=== PATIENT | male | born 1945 | race Caucasian/White ===

== ENCOUNTER 2023-05-26 08:57 | Emergency (ER) | payer OTHER, SELFPAY ==
--- NOTE | ~2023-05-26 | US_ITS ---
EXAMINATION: US SCROTUM CLINICAL INFORMATION: Testicular pain. COMPARISON: None available. TECHNIQUE: A sonogram of the scrotum was performed assessing manning-scale appearance and color Doppler flow. Spectral Doppler analysis of the arterial and venous flow were performed in the testes bilaterally. FINDINGS: RIGHT: Right testicle measures 4.6 x 1.4 x 3.1 cm, volume 10.4 mL. No focal testicular parenchymal lesions are visualized. Spectral Doppler analysis of the arterial and venous flow is normal in the right testis. Right epididymal head is normal in size. No significant right hydrocele or varicocele is seen. Right epididymal Doppler flow is normal. LEFT: Left testicle measures 4.0 x 2.4 x 2.6 cm, volume 12.7 mL. No focal testicular parenchymal lesions are visualized. Spectral Doppler analysis of the arterial and venous flow is normal in the left testis. Left epididymal head is unremarkable other than what appears to be a left epididymal head cyst at 4 mm. No significant left hydrocele or varicocele is seen. Left epididymal Doppler flow is normal. Bilateral inguinal nodes incidentally observed right greater than left, the largest right node at 41 x 11 x 33 mm. US/US scrotum IMPRESSION: Small left epididymal head cyst. Testes intrinsically normal. Bilateral inguinal nodes present.
--- NOTE | ~2023-05-26 | US_ITS ---
EXAMINATION: US SCROTUM CLINICAL INFORMATION: Testicular pain. COMPARISON: None available. TECHNIQUE: A sonogram of the scrotum was performed assessing manning-scale appearance and color Doppler flow. Spectral Doppler analysis of the arterial and venous flow were performed in the testes bilaterally. FINDINGS: RIGHT: Right testicle measures 4.6 x 1.4 x 3.1 cm, volume 10.4 mL. No focal testicular parenchymal lesions are visualized. Spectral Doppler analysis of the arterial and venous flow is normal in the right testis. Right epididymal head is normal in size. No significant right hydrocele or varicocele is seen. Right epididymal Doppler flow is normal. LEFT: Left testicle measures 4.0 x 2.4 x 2.6 cm, volume 12.7 mL. No focal testicular parenchymal lesions are visualized. Spectral Doppler analysis of the arterial and venous flow is normal in the left testis. Left epididymal head is unremarkable other than what appears to be a left epididymal head cyst at 4 mm. No significant left hydrocele or varicocele is seen. Left epididymal Doppler flow is normal. Bilateral inguinal nodes incidentally observed right greater than left, the largest right node at 41 x 11 x 33 mm. US/US scrotum doppler IMPRESSION: Small left epididymal head cyst. Testes intrinsically normal. Bilateral inguinal nodes present.
--- NOTE | ~2023-05-26 | XR_ITS ---
EXAMINATION: XR HIP, RIGHT CLINICAL INFORMATION: Right groin pain. COMPARISON: None available. TECHNIQUE: Two views of the right hip. FINDINGS: There is generalized osteopenia. Mild lateral hip degenerative joint changes are seen, right greater than left. Right cam femoral acetabular impingement. There is no acute fracture or dislocation. Moderate to severe atherosclerosis. XR/XR hip RT w PEL1V IMPRESSION: 1. Generalized osteopenia and mild bilateral hip osteoarthritis, right greater than left. Right cam femoral acetabular impingement. No acute fracture. 2. Moderate to severe atherosclerosis.
[2023-05-26 09:17] VITALS: BP 118/48; BP 132/47; PULSE 85; PULSE 95; RESP 16; TEMP 36.9; O2SAT 95; BMI 25.6
--- NOTE | 2023-05-26 09:30 | ED.GENADULT ---
HPI - General Adult General Chief complaint: Weakness Stated complaint: FAMILY STS WEAKER/?HERNIA PER EMS Time Seen by Provider: 05/26/23 09:29 Source: patient, EMS, RN notes reviewed and old records reviewed Mode of arrival: ambulatory History of Present Illness HPI narrative: 77-year-old male with past medical history of HTN, diabetes, COPD, PAD, memory issues, presenting to the ED via EMS with right hip/ groin pain x 2 days with inability to ambulate & generalized weakness per . denies recent injury/ fall, ambulates intermittently with cane. States patient was unable to get out of bed yesterday/ this morning due to pain. Denies fever/chills, nausea/ vomiting, scrotal/ penile pain, dysuria / hematuria. Onset (ago): day(s) Related Data Home Medications Medication Instructions Recorded Confirmed albuterol sulfate 90 mcg/actuation 2 puff inhalation Q4-6H PRN 05/26/23 05/26/23 aerosol inhaler Shortness Of Breath ammonium lactate 12 % topical cream 1 appl topical BID PRN Dry Skin 05/26/23 05/26/23 amoxicillin 500 mg-potassium 1 tab PO BID 05/26/23 05/26/23 clavulanate 125 mg tablet aspirin 81 mg tablet,delayed 81 mg PO DAILY 05/26/23 05/26/23 release atorvastatin 80 mg tablet 80 mg PO BEDTIME 05/26/23 05/26/23 cetirizine 10 mg tablet (Zyrtec) 10 mg PO DAILY 05/26/23 05/26/23 ferrous sulfate 325 mg (65 mg 325 mg PO DAILY 05/26/23 05/26/23 iron) tablet fluticasone fur. 100 mcg-umeclid 1 ea inhalation DAILY 05/26/23 05/26/23 62.5 mcg-vilant 25 mcg inhalat.powder (Trelegy Ellipta) metformin 500 mg tablet 500 mg PO BID 05/26/23 05/26/23 metoprolol succinate 50 mg 50 mg PO DAILY 05/26/23 05/26/23 tablet,extended release 24 hr minocycline 100 mg capsule 100 mg PO BID 05/26/23 05/26/23 Allergies Allergy/AdvReac Type Severity Reaction Status Date / Time egg Allergy Unknown Verified 05/26/23 11:00 Sulfa (Sulfonamide Allergy Unknown Verified 05/26/23 11:00 Antibiotics) Review of Systems Review of Systems: Constitutional: No Fever, No Chills, No Fatigue, No Malaise ENT/Mouth: No Ear Pain, No Nasal Congestion, No sore throat, No Rhinorrhea, No Swallowing Difficulty Eyes: No Eye Pain, No Swelling, No Redness, No Vision Changes Cardiovascular: No Chest Pain, No SOB, No Palpitations Respiratory: No Cough, No Sputum, No Dyspnea Gastrointestinal: No Nausea, No Vomiting, No Diarrhea, No Constipation, No Abdominal pain Genitourinary: No Dysuria, No Urinary Frequency, No Hematuria, No Flank Pain, No Urinary Flow Changes, No Hesitancy Musculoskeletal: + joint pain, No Myalgias, No Joint Swelling Skin: No Skin Lesions, No rash Neuro: + Weakness, No Numbness, No Paresthesias, No Headache Yes all other systems are reviewed and are negative Constitutional: Constitutional: Reports as per [facility] Past Medical History Attestation statement: The following information was validated with the patient. Source: old records reviewed Social History Social History (System 05/26/23 @ 11:00 by Denise Amador) Alcohol intake: never Smoked in Last 30 Days: No Use of substances other than those prescribed or required for medical reasons: No Advance Directives: No Physical Exam ED Vital Signs: Vital Signs - 24 hr 05/26/23 09:17 05/26/23 12:54 05/26/23 15:33 Temperature 98.4 F Pulse Rate 85 85 74 Respiratory Rate 16 19 Blood Pressure 132/47 L 132/47 L 126/55 L Pulse Oximetry 95 95 91 L Oxygen Delivery Method Room Air Room Air BMI result Body Mass Index 25.6 Const General: cooperative, healthy appearing and no acute distress Limitations: no limitations [facility] Head: Yes normal to inspection and Yes atraumatic Ears: hearing grossly normal bilaterally General nose exam: Normal external nose present Face and sinus: Yes normal facial exam Eyes General: appearance normal, both eyes and all related structures EOM: EOMs intact bilaterally Neck Neck: Yes normal visual inspection and Yes no meningeal signs Resp Effort & Inspection: normal respiratory effort and no respiratory distress Auscultation: clear to auscultation bilaterally Cardio Rate: regular rate Heart sounds: S1 normal heart sound present and S2 normal heart sound present GI Inspection: Yes normal to inspection Palpation (GI): Soft to palpation, nontender, no guarding and not rigid Other: No appreciable hernia General: Yes no CVA tenderness Male General Exam: Yes normal external exam Penis: normal penis Scrotum: scrotum normal, not edematous, not erythematous and no scrotal swelling Testes: Testes normal, no epidiymal tenderness and no testicular swelling Back/Spine/Pelvis Back: no CVA tenderness Skin Rashes: no rashes Wounds: no wounds Neuro General: tone normal, moves all extremities and no meningeal signs Extrem Other: Right hip without noted deformity. + Tenderness to palpation to groin, small superficial open wound noted without surrounding erythema or drainage. No warmth. Pain elicited with ROM of right hip, ROM limited secondary to pain. Neurovascular intact distally. General: Yes normal to inspection Course Course Course Narrative: - labs noted for mild hyperkalemia to 5.3 > 5g Lokelma given. BUN 22, no available priors to compare. Labs otherwise reassuring - UA with glucose, not infected US scrotum doppler IMPRESSION: Small left epididymal head cyst. Testes intrinsically normal. Bilateral inguinal nodes present. XR hip RT w PEL1V IMPRESSION: 1.? Generalized osteopenia and mild bilateral hip osteoarthritis, right greater than left. Right cam femoral acetabular impingement. No acute fracture. 2.? Moderate to severe atherosclerosis. > results discussed with patient and . Will obtain to PT/CM eval. Physician observation initiated at 11:51AM - physical therapy evaluated patient and recommended STR -1630-- ED care transferred to [facility] pending CM placement Medications Administered Discontinued Medications Generic Name Dose Route Start Last Admin Trade Name Freq PRN Reason Stop Dose Admin Morphine Sulfate 15 mg 05/26/23 09:38 05/26/23 10:51 Morphine Sulfate Immed Release 15 Mg Tablet PO 05/26/23 09:39 15 mg ONCE ONE Administration Sodium Zirconium Cyclosilicate 5 gm 05/26/23 11:31 05/26/23 12:04 Sodium Zirconium Cyclosilicate 5 Gm Powd.Pack PO 05/26/23 11:32 5 gm ONCE ONE Administration Medical Decision Making Medical Decision Making MDM Narrative: 77-year-old male with past medical history of HTN, diabetes, COPD, PAD, memory issues, presenting to the ED via EMS with right hip/ groin pain x 2 days with inability to ambulate & generalized weakness per . on exam vital stable, NAD, nontoxic appearing, abdomen soft/ nontender, exam WNL without scrotal/testicular tenderness swelling or lesions. No appreciable hernia. + Tenderness to right groin without noted deformity. Pain elicited with hip ROM. Neurovascularly intact distally without edema. Concern for occult fracture vs arthritic flare vs hernia vs epididymitis/orchitis vs ?torsion. Lower suspicion for appendicitis/diverticulitis/ colitis or ischemic bowelwithout abdominal tenderness Plan: labs, UA, x-ray, ultrasound, pain management, re-evaluate Please refer to course for remaining clinical decision making, interpretation of labs/imaging results, and discussions with consultants and/or family members. Differential Diagnosis Differential Diagnoses: The differential diagnosis associated with the presentation includes As above Admission/Observation Consideration of admission/observation: Escalation of care including admission/observation considered Lab Data MDM Lab Attestation statement: I reviewed the patient's lab results. 05/26/23 10:46 05/26/23 10:46 Labs: Lab Results 05/26/23 05/26/23 05/26/23 Range/Units 10:46 10:46 10:46 WBC 5.9 (4.8-10.8) X10*3/uL RBC 3.91 L (4.60-5.80) X10*6/uL Hgb 12.1 L (14.0-18.0) g/dl Hct 36.5 L (42.0-52.0) % MCV 93.4 (80.0-98.0) fL MCH 30.9 (27.0-33.0) pg MCHC 33.2 (31.0-36.0) g/dl RDW 13.5 (11.0-16.0) % Plt Count 93 L (160-400) X10*3/uL MPV 10.1 (9.4-12.4) fL Immature Gran % (Auto) 0.5 H (0.0-0.4) % Neut % (Auto) 80.4 H (45-73) % Lymph % (Auto) 8.6 L (20-40) % Corson % (Auto) 9.5 (2-11) % Eos % (Auto) 0.5 (0-4) % Baso % (Auto) 0.5 (0-2) % Lymph # (Auto) 0.5 L (1.2-4.9) X10*3/uL Corson # (Auto) 0.6 (0.1-1.2) X10*3/uL Eos # (Auto) 0.0 (0.0-0.4) X10*3/uL Baso # (Auto) 0.0 (0.0-0.2) X10*3/uL Abs Immat Gran (auto) 0.03 (0.00-0.03) X10*3/uL Absolute Neuts (auto) 4.8 (2.0-8.3) x10*3/uL Absolute Nucleated RBC 0.000 (0.0-0.012) X10*3/uL Nucleated RBC % (auto) 0.0 (0.0-0.2) /100WBC PT 14.3 H (11.1-13.3) SEC INR 1.2 H (0.9-1.1) Sodium 136 (135-145) mmol/L Potassium 5.3 H (3.3-5.1) mmol/L Chloride 108 (96-108) mmol/L Carbon Dioxide 19 L (22-29) mmol/L Anion Gap 14 (12-20) BUN 22 H (9-16) mg/dL Creatinine 1.14 (0.5-1.4) mg/dL Estim Creat Clear Calc 50.7 Estimated GFR > 60 POC Glucose (60-115) mg/dL Random Glucose 123 H (60-115) mg/dL Calcium 8.7 (8.4-10.2) mg/dL Magnesium (1.6-2.6) mg/dL Total Bilirubin 0.9 (0.0-1.0) mg/dL Direct Bilirubin 0.4 (0.0-0.5) mg/dL AST 15 (5-37) U/L ALT 17 (0-40) U/L Alkaline Phosphatase 128 H (39-117) U/L Total Protein 7.5 (6.5-8.0) g/dL Albumin 3.1 L (3.5-5.0) g/dL Lipase 26 (8-78) U/L Urine Color Urine Appearance Urine pH (5.0-9.0) Ur Specific Chunky (1.005-1.025) Urine Protein (Neg-Trace) mg/dL Urine Glucose (UA) (Negative) mg/dL Urine Ketones (Negative) mg/dL Urine Blood (Negative) Urine Nitrite (Negative) Ur Leukocyte Esterase (Negative) Urine RBC (0-2) /HPF Urine WBC (0-5) /HPF Ur Squamous Epith Cells (0-2) /HPF Urine Bacteria (None Seen) Hyaline Casts (0-2) /LPF COVID-19 (ABIGAIL) (Negative) COVID-19 Clin Com 05/26/23 05/26/23 05/26/23 Range/Units 10:46 10:46 12:32 WBC (4.8-10.8) X10*3/uL RBC (4.60-5.80) X10*6/uL Hgb (14.0-18.0) g/dl Hct (42.0-52.0) % MCV (80.0-98.0) fL MCH (27.0-33.0) pg MCHC (31.0-36.0) g/dl RDW (11.0-16.0) % Plt Count (160-400) X10*3/uL MPV (9.4-12.4) fL Immature Gran % (Auto) (0.0-0.4) % Neut % (Auto) (45-73) % Lymph % (Auto) (20-40) % Corson % (Auto) (2-11) % Eos % (Auto) (0-4) % Baso % (Auto) (0-2) % Lymph # (Auto) (1.2-4.9) X10*3/uL Corson # (Auto) (0.1-1.2) X10*3/uL Eos # (Auto) (0.0-0.4) X10*3/uL Baso # (Auto) (0.0-0.2) X10*3/uL Abs Immat Gran (auto) (0.00-0.03) X10*3/uL Absolute Neuts (auto) (2.0-8.3) x10*3/uL Absolute Nucleated RBC (0.0-0.012) X10*3/uL Nucleated RBC % (auto) (0.0-0.2) /100WBC PT (11.1-13.3) SEC INR (0.9-1.1) Sodium (135-145) mmol/L Potassium (3.3-5.1) mmol/L Chloride (96-108) mmol/L Carbon Dioxide (22-29) mmol/L Anion Gap (12-20) BUN (9-16) mg/dL Creatinine (0.5-1.4) mg/dL Estim Creat Clear Calc Estimated GFR POC Glucose (60-115) mg/dL Random Glucose (60-115) mg/dL Calcium (8.4-10.2) mg/dL Magnesium 1.8 (1.6-2.6) mg/dL Total Bilirubin (0.0-1.0) mg/dL Direct Bilirubin (0.0-0.5) mg/dL AST (5-37) U/L ALT (0-40) U/L Alkaline Phosphatase (39-117) U/L Total Protein (6.5-8.0) g/dL Albumin (3.5-5.0) g/dL Lipase (8-78) U/L Urine Color Yellow Urine Appearance Clear Urine pH 6.0 (5.0-9.0) Ur Specific Chunky 1.020 (1.005-1.025) Urine Protein 30 (1+) H (Neg-Trace) mg/dL Urine Glucose (UA) 250 H (Negative) mg/dL Urine Ketones Negative (Negative) mg/dL Urine Blood Negative (Negative) Urine Nitrite Negative (Negative) Ur Leukocyte Esterase Negative (Negative) Urine RBC 0-2 (0-2) /HPF Urine WBC 0-5 (0-5) /HPF Ur Squamous Epith Cells 0-2 (0-2) /HPF Urine Bacteria None Seen (None Seen) Hyaline Casts 0-2 (0-2) /LPF COVID-19 (ABIGAIL) Negative (Negative) COVID-19 Clin Com See Note 05/26/23 Range/Units 13:12 WBC (4.8-10.8) X10*3/uL RBC (4.60-5.80) X10*6/uL Hgb (14.0-18.0) g/dl Hct (42.0-52.0) % MCV (80.0-98.0) fL MCH (27.0-33.0) pg MCHC (31.0-36.0) g/dl RDW (11.0-16.0) % Plt Count (160-400) X10*3/uL MPV (9.4-12.4) fL Immature Gran % (Auto) (0.0-0.4) % Neut % (Auto) (45-73) % Lymph % (Auto) (20-40) % Corson % (Auto) (2-11) % Eos % (Auto) (0-4) % Baso % (Auto) (0-2) % Lymph # (Auto) (1.2-4.9) X10*3/uL Corson # (Auto) (0.1-1.2) X10*3/uL Eos # (Auto) (0.0-0.4) X10*3/uL Baso # (Auto) (0.0-0.2) X10*3/uL Abs Immat Gran (auto) (0.00-0.03) X10*3/uL Absolute Neuts (auto) (2.0-8.3) x10*3/uL Absolute Nucleated RBC (0.0-0.012) X10*3/uL Nucleated RBC % (auto) (0.0-0.2) /100WBC PT (11.1-13.3) SEC INR (0.9-1.1) Sodium (135-145) mmol/L Potassium (3.3-5.1) mmol/L Chloride (96-108) mmol/L Carbon Dioxide (22-29) mmol/L Anion Gap (12-20) BUN (9-16) mg/dL Creatinine (0.5-1.4) mg/dL Estim Creat Clear Calc Estimated GFR POC Glucose 117 H (60-115) mg/dL Random Glucose (60-115) mg/dL Calcium (8.4-10.2) mg/dL Magnesium (1.6-2.6) mg/dL Total Bilirubin (0.0-1.0) mg/dL Direct Bilirubin (0.0-0.5) mg/dL AST (5-37) U/L ALT (0-40) U/L Alkaline Phosphatase (39-117) U/L Total Protein (6.5-8.0) g/dL Albumin (3.5-5.0) g/dL Lipase (8-78) U/L Urine Color Urine Appearance Urine pH (5.0-9.0) Ur Specific Chunky (1.005-1.025) Urine Protein (Neg-Trace) mg/dL Urine Glucose (UA) (Negative) mg/dL Urine Ketones (Negative) mg/dL Urine Blood (Negative) Urine Nitrite (Negative) Ur Leukocyte Esterase (Negative) Urine RBC (0-2) /HPF Urine WBC (0-5) /HPF Ur Squamous Epith Cells (0-2) /HPF Urine Bacteria (None Seen) Hyaline Casts (0-2) /LPF COVID-19 (ABIGAIL) (Negative) COVID-19 Clin Com Radiology Impression Discussion of test interpretation with radiology: I have reviewed the radiologist's reading. Independent Historian Clinical information obtained from an independent historian. History obtained from or confirmed by: Spouse External Record Review External record reviewed: Inpatient record, Office record, Outpatient record, Prior outpatient labs, Prior outpatient radiology, Primary care record and Outside ED record Tests considered The following testing was considered but not selected: As above Prescription Management I considered prescription management with: Pain Medication Chronic Conditions Patient?s care impacted by: Diabetes, Hypertension and Other (COPD) Discharge Plan Discharge Clinical Impression: Femoral acetabular impingement Patient Disposition: Still a Patient Prescriptions: No Action metformin 500 mg tablet 500 mg PO BID atorvastatin 80 mg tablet 80 mg PO BEDTIME metoprolol succinate 50 mg tablet extended release 24 hr 50 mg PO DAILY ammonium lactate 12 % cream 1 appl topical BID PRN (Reason: Dry Skin) albuterol sulfate 90 mcg/actuation HFA aerosol inhaler 2 puff INHALATION Q4-6H PRN (Reason: Shortness Of Breath) amoxicillin-pot clavulanate 500-125 mg tablet 1 tab PO BID Trelegy Ellipta 100-62.5-25 mcg blister with device 1 ea inhalation DAILY cetirizine [Zyrtec] 10 mg Tablet 10 mg PO DAILY minocycline 100 mg capsule 100 mg PO BID aspirin 81 mg Tablet,Delayed Release (Dr/Ec) 81 mg PO DAILY ferrous sulfate 325 mg (65 mg iron) Tablet 325 mg PO DAILY
--- NOTE | 2023-05-26 09:39 | ECG_ITS ---
Test Reason : WEAKNESS Blood Pressure : / mmHG Vent. Rate : 083 BPM Atrial Rate : 083 BPM P-R Int : 164 ms QRS Dur : 082 ms QT Int : 354 ms P-R-T Axes : 117 021 066 degrees QTc Int : 415 ms Sinus rhythm with Premature atrial complexes Otherwise normal ECG No previous ECGs available Referred By: Susana Brown Electronically Signed By:SARAH ROSA
[2023-05-26 10:50] LABS: MANUAL DIFF FLAG NO
[2023-05-26] MEDS: Morphine Sulfate Immed Release 15 MG TABLET PO (10:51)
[2023-05-26 10:52] LABS: Appearance Urine Clear; Color Urine Yellow; Glucose Urine UA 250 mg/dL (Negative); Leukocyte Esterase Urine Negative (Negative); Nitrite Urine Negative (Negative); UMIC TRIGGER UACC YES; Urine Blood Negative (Negative); Urine Ketones Negative (Negative); Urine Protein 30 (1+) mg/dL (Neg-Trace)
[2023-05-26 10:54] LABS: Bacteria Urine None Seen (None Seen); Hyaline Casts Urine 0-2 /LPF (0-2); RBC Urine 0-2 /HPF (0-2); Squamous Epithelial Cell Urine 0-2 /HPF (0-2); WBC Urine 0-5 /HPF (0-5)
[2023-05-26 10:57] LABS: Basophils Percent Auto 0.5 % (0-2); Eosinophils Percent Auto 0.5 % (0-4); Hematocrit 36.5 % (42.0-52.0); Hemoglobin 12.1 g/dl (14.0-18.0); INTERNATIONAL NORM RATIO 1.2 (0.9-1.1); Imm Gran Abs Auto 0.03 X10*3/uL (0.00-0.03); Imm Gran Pct Auto 0.5 % (0.0-0.4); Lymphocytes Absolute Auto 0.5 X10*3/uL (1.2-4.9); Lymphocytes Percent Auto 8.6 % (20-40); Mean Corpuscular HGB Conc 33.2 g/dl (31.0-36.0); Mean Corpuscular Hemoglobin 30.9 pg (27.0-33.0); Mean Corpuscular Volume 93.4 fL (80.0-98.0); Monocytes Absolute Auto 0.6 X10*3/uL (0.1-1.2); Monocytes Percent Auto 9.5 % (2-11); Neutrophils Absolute Auto 4.8 x10*3/uL (2.0-8.3); Neutrophils Percent Auto 80.4 % (45-73); Prothrombin Time 14.3 SEC (11.1-13.3); Red Blood Count 3.91 X10*6/uL (4.60-5.80); Red Cell Distribution Width 13.5 % (11.0-16.0); White Blood Count 5.9 X10*3/uL (4.8-10.8)
[2023-05-26 11:09] LABS: Magnesium 1.8 mg/dL (1.6-2.6)
[2023-05-26 11:10] LABS: Alanine Aminotransferase 17 U/L (0-40); Albumin Level 3.1 g/dL (3.5-5.0); Alkaline Phosphatase 128 U/L (39-117); Anion Gap 14 (12-20); Aspartate Amino Transferase 15 U/L (5-37); Bilirubin Direct 0.4 mg/dL (0.0-0.5); Bilirubin Total 0.9 mg/dL (0.0-1.0); Blood Urea Nitrogen 22 mg/dL (9-16); Calcium 8.7 mg/dL (8.4-10.2); Carbon Dioxide 19 mmol/L (22-29); Chloride 108 mmol/L (96-108); Creatinine Clr Calc Pharmacy 50.7; Estimated Glomerular Filt Rate > 60; Glucose Random 123 mg/dL (60-115); Lipase 26 U/L (8-78); Potassium 5.3 mmol/L (3.3-5.1); Sodium 136 mmol/L (135-145); Total Protein 7.5 g/dL (6.5-8.0)
[2023-05-26 11:16] LABS: Mean Platelet Volume 10.1 fL (9.4-12.4); Platelet Count 93 X10*3/uL (160-400)
[2023-05-26] MEDS: Sodium Zirconium Cyclosilicate 5 GM POWD.PACK PO (12:04)
[2023-05-26 12:54] VITALS: BP 132/47; PULSE 85; O2SAT 95
[2023-05-26 13:00] LABS: COVID-19 Test Negative (Negative); IDNOW Serial# BCCEAD1C
[2023-05-26 13:16] LABS: Glucose, Whole Blood 117 mg/dL (60-115)
--- NOTE | 2023-05-26 13:43 | PHA.MEDREC ---
Pharmacy Consult ? Medication Reconciliation Pharmacy has completed the medication reconciliation. spoke with patients to confirm medications.
[2023-05-26 15:33] VITALS: BP 126/55; PULSE 74; RESP 19; O2SAT 91
--- NOTE | 2023-05-26 16:16 | MHC.CM.ED ---
Received case management consult from Susana TATE. Patient came to the ER due to weakness. Work up essentially negative. Physical therapy eval completed. Short term rehab is being recommended. Patient has [employer] Preferred. Referral broadcatsed to all facilities contracted with patient's insurance within [address]. [facility] and [facility] are only facilities able to offer a bed. Attempted to meet with patient in regards to discharge planning. Patient is currently sleeping. Spoke with patient's , Maria C, via telephone at [phone]. Patient lives with Maria C, typically ambulates with a cane/walker and had no services prior to coming to the ER. Maria C has a copy of patient's HCP at home and will bring in a copy. Facility choices discussed. [facility] is Maria C's first choice. [facility] has been asked to go for insurance auth. Anticipate patient will remain in ER overnight until insurance auth can be obtained. Continue to monitor for d/c needs.
--- NOTE | 2023-05-26 18:24 | MHC.EDTECH ---
Pt ate 50% of dinner. Cleaned up and repositioned. Family member at bedside, call lopez within reach
--- NOTE | 2023-05-26 18:52 | HE.PHANOTE ---
Pharmacy has received patient own medication Minocyclne capsules. Pharmacy will hold on to medication and will send twice daily to ER. RN to contact pharmacy if patient get discharged to receive the medication. Justine Sr, TomD
--- NOTE | 2023-05-26 20:51 | MHC.CM.ED ---
HCP obtained from . Uploaded into [facility]. HCP/ Maria C Dominguez ([phone]).
[2023-05-26 21:02] VITALS: BP 144/58; PULSE 93; RESP 17; TEMP 37.2; O2SAT 95
[2023-05-26] MEDS: Atorvastatin Calcium 80 MG TABLET PO (22:04)
[2023-05-26] MEDS: Amoxicillin/Potassium Clav 500 MG TABLET PO (22:04)
[2023-05-26] MEDS: metFORMIN HCl 500 MG TABLET PO (22:04)
[2023-05-27 02:03] VITALS: BP 106/37; PULSE 83; RESP 17; TEMP 36.8; O2SAT 94
--- NOTE | 2023-05-27 02:09 | PC.NURSE ---
PT BP soft 90/49. made aware, No new orders at this time. PT placed in trendelenburg and bp cycled to u80sizz instead q3mins to allow for perfusion. PT bp increased to 114/51.
[2023-05-27 05:00] VITALS: BP 110/57; PULSE 81; RESP 17; TEMP 36.9; O2SAT 93
--- NOTE | 2023-05-27 06:31 | PC.NURSE ---
Primary contact- , Maria C. [phone]
[2023-05-27 07:40] VITALS: BP 121/54; PULSE 83; RESP 25; O2SAT 95
[2023-05-27] MEDS: Metoprolol Succinate ER 50 MG TAB.ER.24H PO (08:47)
[2023-05-27] MEDS: Aspirin Enteric Coated 81 MG TABLET.DR PO (08:47)
[2023-05-27] MEDS: metFORMIN HCl 500 MG TABLET PO (08:48)
[2023-05-27] MEDS: Amoxicillin/Potassium Clav 500 MG TABLET PO (08:48)
[2023-05-27] MEDS: Loratadine 10 MG TABLET PO (08:48)
[2023-05-27] MEDS: Ferrous Sulfate 324 MG TABLET.DR PO (08:48)
[2023-05-27 08:51] VITALS: BP 103/41; PULSE 85; RESP 23
[2023-05-27] MEDS: Fluticasone/Umeclidinium/Vilanterol 100/62.5/25 BLST.W.DEV 1 PUFF INHALE (09:25)
--- NOTE | 2023-05-27 11:05 | MHC.CM.ED ---
Patient remains in ER overflow. Insurance auth obtained by [facility]. Brenda PHAM booked for 12pm. Med [facility] with chart. Patient, Carola Lombardi RN and Chantelle TATE aware. Continue to monitor for d/c needs.
== END 2023-05-27 13:00 | disposition skilled nursing facility (03) ==
PROVIDERS: Physician Assistant; Emergency Provider Emergency Medicine; PCP Internal Medicine
DX: M25.851 Other specified joint disorders, right hip (principal); R10.31 Right lower quadrant pain; M25.551 Pain in right hip; R10.2 Pelvic and perineal pain; N50.811 Right testicular pain; R26.2 Difficulty in walking, not elsewhere classified; R53.1 Weakness; Z79.899 Other long term (current) drug therapy
CPT/HCPCS: 36415; 73502; 76870; 80048; 80076; 81001; 82947; 83690; 83735; 85025; 85610; 87635; 93005; 93975; 97162; 99285

== ENCOUNTER → 2023-05-26 09:39 | Outpatient (BNV) | payer MEDICARE, SELFPAY | PROVIDERS: Emergency Provider Emergency Medicine; PCP Internal Medicine; Visit Provider Internal Medicine | DX: I49.1 Atrial premature depolarization (principal) | CPT/HCPCS: 93010 ==

== ENCOUNTER 2024-07-27 11:23 | Emergency (ER) | payer OTHER, SELFPAY ==
--- NOTE | ~2024-07-27 | XR_ITS ---
EXAMINATION: XR CHEST CLINICAL INFORMATION: Hypoxia. COMPARISON: None available. TECHNIQUE: 2 views of the chest were obtained. FINDINGS: The heart is normal in size. There is calcific atherosclerotic disease of the aorta. The right lung is clear. There is a dense left lower lobe consolidation. No pleural effusion. No pneumothorax. No acute osseous abnormality. XR/XR chest 2V IMPRESSION: Left lower lobe consolidation. Electronically signed by: Saúl Heller DO 07/27/2024 07:22 PM EDT
[2024-07-27 11:31] VITALS: BP 119/57; BP 131/58; PULSE 85; PULSE 86; RESP 20; TEMP 37; O2SAT 93; O2SAT 94; BMI 27.4
[2024-07-27 11:37] VITALS: BP 119/57; PULSE 77; RESP 20; TEMP 37; O2SAT 92
--- NOTE | 2024-07-27 12:08 | ED.MALEGU ---
HPI - Male Genitourinary General Chief complaint: Urogenital-Male Stated complaint: ?'S UTI,WEAK,BLOOD/FREQ URINE,101.5 PER EMS Time Seen by Provider: 07/27/24 12:00 Source: patient and family () Mode of arrival: EMS Limitations: no limitations History of Present Illness ED Provider: Faizan HPI Narrative: Patient is a 78-year-old male with history of HTN, DM, COPD, PID, memory issues presenting via ambulance for urinary frequency, hematuria, weakness since this morning. reports that patient got up to go to the bathroom multiple times throughout the night, only urinated small amounts. This morning around 5:00 a.m. she assisted him to the bathroom and noticed hematuria. She also noted him to have a fever of 101.7. She rechecked prior to EMS transport and temp was 101.5?. She did give him Tylenol prior to arrival. Patient denies any back or flank pain. Denies any abdominal pain, nausea, vomiting, diarrhea. states that patient was too weak to ambulate on his own so she called 911. Complaint: other Onset (ago): hour(s) Associated symptoms: Reports blood in urine and fever Related Data Home Medications ?Medication ?Instructions ?Recorded ?Confirmed albuterol sulfate 90 mcg/actuation 2 puff inhalation Q4-6H PRN 05/26/23 05/26/23 aerosol inhaler Shortness Of Breath ammonium lactate 12 % topical cream 1 appl topical BID PRN Dry Skin 05/26/23 05/26/23 amoxicillin 500 mg-potassium 1 tab PO BID 05/26/23 05/26/23 clavulanate 125 mg tablet aspirin 81 mg tablet,delayed 81 mg PO DAILY 05/26/23 05/26/23 release atorvastatin 80 mg tablet 80 mg PO BEDTIME 05/26/23 05/26/23 cetirizine 10 mg tablet (Zyrtec) 10 mg PO DAILY 05/26/23 05/26/23 ferrous sulfate 325 mg (65 mg 325 mg PO DAILY 05/26/23 05/26/23 iron) tablet fluticasone fur. 100 mcg-umeclid 1 ea inhalation DAILY 05/26/23 05/26/23 62.5 mcg-vilant 25 mcg inhalat.powder (Trelegy Ellipta) metformin 500 mg tablet 500 mg PO BID 05/26/23 05/26/23 metoprolol succinate 50 mg 50 mg PO DAILY 05/26/23 05/26/23 tablet,extended release 24 hr minocycline 100 mg capsule 100 mg PO BID 05/26/23 05/26/23 Previous Rx's ?Medication ?Instructions ?Recorded cefuroxime axetil 250 mg tablet 250 mg PO BID #14 tabs 07/27/24 Allergies Allergy/AdvReac Type Severity Reaction Status Date / Time egg Allergy Unknown Verified 07/27/24 11:33 Sulfa (Sulfonamide Allergy Unknown Verified 07/27/24 11:33 Antibiotics) Review of Systems Review of Systems: As per HPI Yes all other systems are reviewed and are negative Constitutional: Constitutional: Reports as per HPI [facility] Social History Social History (System 05/26/23 @ 11:00 by Denise Amador) Alcohol intake: never Smoked in Last 30 Days: No Use of substances other than those prescribed or required for medical reasons: No Advance Directives: No Advance Directives Information Provided: No Do you have a plan to hurt others: No Plan Physical Exam Vital Signs: Vital Signs: Last Vital Signs Temp 98.9 F 07/27/24 19:32 Pulse 97 07/27/24 19:32 Resp 18 07/27/24 19:32 BP 140/63 H 07/27/24 19:32 Pulse Ox 93 07/27/24 19:32 O2 Del Method Nasal Cannula 07/27/24 19:32 O2 Flow Rate 2 07/27/24 19:32 Oxygen Flow Rate 2 07/27/24 11:31 BMI result Body Mass Index 27.4 Vital signs have been reviewed and appear to be correct. Blood pressure normal. Heart rate normal. Respiratory rate normal. Temperature normal. Oxygen saturation normal on baseline O2. Const: General: cooperative, healthy appearing and no acute distress Orientation/consciousness: oriented to person, oriented to place, oriented to time and patient oriented x3 Limitations: no limitations HEENT: Head: Yes normocephalic and Yes atraumatic Ears: external ears normal General nose exam: Normal external nose present Face and sinus: Yes face symmetric Mouth: oropharynx normal and moist mucous membranes Throat: Yes uvula midline Eyes: Pupils: Equal, round and reactive pupils present Neck: Neck: Yes normal visual inspection and Yes supple Resp: Effort & Inspection: normal respiratory effort and able to speak in complete sentences Auscultation: clear to auscultation bilaterally Cardio: Rate: regular rate Rhythm: regular rhythm Heart sounds: S1 normal heart sound present and S2 normal heart sound present GI: Palpation (GI): Soft to palpation and nontender Auscultation: normoactive bowel sounds : General: Yes no CVA tenderness Back/Spine/Pelvis: Back: no CVA tenderness Skin: General skin exam: elasticity normal and turgor normal Neuro: General: oriented to person, oriented to place, oriented to time, patient oriented x3, moves all extremities, no focal motor deficits and CN's II-XI intact bilaterally Cranial nerves: Yes Equal, round and reactive pupils present Cognition (Neuro): normal cognition Extrem: General: Yes full ROM, Yes no pedal edema and Yes no calf tenderness Psych: Mental Status: mental status grossly normal Affect: normal affect Thought process: Normal thought process present Course Reevaluation(s) Reevaluation #1: , who is also HCP, initially stated she felt comfortable bringing patient home, stating she has assistance from children, can transfer patient in and out of wheelchair, has oxygen at home, etc. Nursing expressed concern with this as patient becoming increasingly confused as the day goes on. reports that the patient frequently but states he is not on any medications for this as he has has not seen a neurologist yet. Discussed with that we can obtain chest x-ray, VBG, and she was initially agreeable, then quickly change her mind stating that she wants patient transported home. Case discussed with Dr. Murillo who feels that if wants patient discharged home, this is ok, but he should be transported home by ambulance to ensure he is receiving adequate oxygenation. This plan discussed with who was agreeable. Ambulance booked for transport. Time: 17:25 Reevaluation #2: ADDENDUM 07/28/24: Pt blood cultures showing concerns for g positive cocci in pairs and short chains as well as Enterococcus noted in urinalysis. I spoke with patient's , Maria C, who reports that patient has been urinating without issue and is afebrile. She reports patient is still weak ?but better than yesterday? and remains on oxygen at home. She reports that if patient develops fever or if she has any other concerns that she will call the ambulance to return patient to the hospital. Time: 15:38 (07/28/2024) Medications Administered Discontinued Medications Generic Name Dose Route Start Last Admin Trade Name Yariel PRN Reason Stop Dose Admin Ceftriaxone Sodium 1 gm/ 50 mls @ 100 mls/hr 07/27/24 13:54 07/27/24 15:10 Sodium Chloride IV 07/27/24 14:23 Infused ONCE ONE Infusion Medical Decision Making Medical Decision Making [facility] Narrative: Patient is a 78-year-old male with history of HTN, DM, COPD, PID, memory issues presenting via ambulance for urinary frequency, hematuria, weakness since this morning. On exam patient is awake, A+Ox3, VS WNL, afebrile, normal neurological exam without focal deficits, physical exam findings as above. Given reported symptoms and physical exam findings, initial differential includes UTI, pyelonephritis, PILY, sepsis. Labs notable for left shift without leukocytosis, no evidence of PILY, normal lactic. No longer suspicious for sepsis. Viral serology negative. Urinalysis notable for 2+ leukocytes, 3+ blood, >50WBCs, 1+ bacteria, ceftriaxone ordered for UTI. Results discussed with patient and all questions answered. Patient's states that she is comfortable bringing him home for treatment with oral antibiotics, have to wheelchairs at home to use as he does have weakness at times. Strict return precautions discussed at bedside. Follow-up with PCP. Patient and verbalized understanding of and agreement with plan. Differential Diagnosis Differential Diagnoses: The differential diagnosis associated with the presentation includes As per [facility] Admission/Observation Consideration of admission/observation: Escalation of care including admission/observation considered Patient would have been admitted to the hospital had their work up had any findings where hospital admission was appropriate and their clinical presentation warranted hospital admission. Lab Data [facility] Lab Attestation statement: I reviewed the patient's lab results. As per [facility] 07/27/24 12:23 07/27/24 12:23 Labs: Lab Results 07/27/24 07/27/24 07/27/24 Range/Units 12:23 12:24 13:07 WBC 7.4 (4.8-10.8) X10*3/uL RBC 3.59 L (4.60-5.80) X10*6/uL Hgb 11.8 L (14.0-18.0) g/dl Hct 34.3 L (42.0-52.0) % MCV 95.5 (80.0-98.0) fL MCH 32.9 (27.0-33.0) pg MCHC 34.4 (31.0-36.0) g/dl RDW 12.5 (11.0-16.0) % Plt Count 99 L (160-400) X10*3/uL MPV 9.9 (9.4-12.4) fL Immature Gran % (Auto) 0.4 (0.0-0.4) % Neut % (Auto) 80.6 H (45-73) % Lymph % (Auto) 8.5 L (20-40) % [place] % (Auto) 9.5 (2-11) % Eos % (Auto) 0.5 (0-4) % Baso % (Auto) 0.5 (0-2) % Lymph # (Auto) 0.6 L (1.2-4.9) X10*3/uL [place] # (Auto) 0.7 (0.1-1.2) X10*3/uL Eos # (Auto) 0.0 (0.0-0.4) X10*3/uL Baso # (Auto) 0.0 (0.0-0.2) X10*3/uL Abs Immat Gran (auto) 0.03 (0.00-0.03) X10*3/uL Absolute Neuts (auto) 6.0 (2.0-8.3) x10*3/uL Absolute Nucleated RBC 0.000 (0.0-0.012) X10*3/uL Nucleated RBC % (auto) 0.0 (0.0-0.2) /100WBC Sodium 135 (135-145) mmol/L Potassium 4.2 (3.3-5.1) mmol/L Chloride 108 (96-108) mmol/L Carbon Dioxide 18 L (22-29) mmol/L Anion Gap 13 (12-20) BUN 16 (9-16) mg/dL Creatinine 1.28 (0.5-1.4) mg/dL Estim Creat Clear Calc 44.4 Estimated GFR 54 Random Glucose 124 H (60-115) mg/dL Lactic Acid 1.8 (0.5-2.0) mmol/L Calcium 8.1 L D (8.4-10.2) mg/dL Total Bilirubin 1.1 H (0.0-1.0) mg/dL AST 22 (5-37) U/L ALT 25 (0-40) U/L Alkaline Phosphatase 104 (39-117) U/L Total Protein 7.0 (6.5-8.0) g/dL Albumin 3.4 L (3.5-5.0) g/dL Urine Color Yellow Urine Appearance Hazy Urine pH 6.0 (5.0-9.0) Ur Specific [place] 1.010 (1.005-1.025) Urine Protein Negative (Neg-Trace) mg/dL Urine Glucose (UA) Negative (Negative) mg/dL Urine Ketones Negative (Negative) mg/dL Urine Blood Large (3+) H (Negative) Urine Nitrite Negative (Negative) Ur Leukocyte Esterase Moderate (2+) H (Negative) Urine RBC >20 H (0-2) /HPF Urine WBC >50 H (0-5) /HPF Ur Squamous Epith Cells 0-2 (0-2) /HPF Urine Bacteria 1+ (None Seen) Hyaline Casts 0-2 (0-2) /LPF Influenza Type A (PCR) NEGATIVE (Negative) Influenza Type B (PCR) NEGATIVE (Negative) RSV RNA Qual (PCR) NEGATIVE (Negative) SARS-CoV-2 RNA (RT-PCR) NEGATIVE (Negative) Independent Historian Clinical information obtained from an independent historian. History obtained from or confirmed by: Spouse External Record Review External record reviewed: Inpatient record, Office record and Outpatient record Prescription Management I considered prescription management with: Antibiotic Discharge Plan Discharge Clinical Impression: Urinary tract infection Patient Disposition: Home, Self-Care Instructions: Urinary Tract Infection in Men (DC) Additional Instructions: You have been evaluated in the emergency department today for your urinary symptoms. Your evaluation, including urinalysis, suggests that your symptoms are due to urinary tract infection. Please take your prescribed antibiotics for the full course of medication as directed. Please follow-up with your primary care provider within 2 days. Return to the emergency department if you experience fevers 100.4? F or greater, increasing weakness, worsening or uncontrolled pain, vomiting, flank pain, or for any other concerning symptoms. Prescriptions: New cefuroxime axetil 250 mg tablet 250 mg PO BID Qty: 14 0RF No Action metformin 500 mg tablet 500 mg PO BID atorvastatin 80 mg tablet 80 mg PO BEDTIME metoprolol succinate 50 mg tablet extended release 24 hr 50 mg PO DAILY ammonium lactate 12 % cream 1 appl topical BID PRN (Reason: Dry Skin) albuterol sulfate 90 mcg/actuation HFA aerosol inhaler 2 puff INHALATION Q4-6H PRN (Reason: Shortness Of Breath) amoxicillin-pot clavulanate 500-125 mg tablet 1 tab PO BID Trelegy Ellipta 100-62.5-25 mcg blister with device 1 ea inhalation DAILY cetirizine [Zyrtec] 10 mg Tablet 10 mg PO DAILY minocycline 100 mg capsule 100 mg PO BID aspirin 81 mg Tablet,Delayed Release (Dr/Ec) 81 mg PO DAILY ferrous sulfate 325 mg (65 mg iron) Tablet 325 mg PO DAILY Interventions: ED Discharge Assessment Last Done: 07/27/24 19:32 Discharge Date/Time: 07/27/24 19:33 Print Language: Czech
[2024-07-27 12:31] LABS: MANUAL DIFF FLAG NO
[2024-07-27 12:33] LABS: Basophils Percent Auto 0.5 % (0-2); Eosinophils Percent Auto 0.5 % (0-4); Hematocrit 34.3 % (42.0-52.0); Hemoglobin 11.8 g/dl (14.0-18.0); Imm Gran Abs Auto 0.03 X10*3/uL (0.00-0.03); Imm Gran Pct Auto 0.4 % (0.0-0.4); Lymphocytes Absolute Auto 0.6 X10*3/uL (1.2-4.9); Lymphocytes Percent Auto 8.5 % (20-40); Mean Corpuscular HGB Conc 34.4 g/dl (31.0-36.0); Mean Corpuscular Hemoglobin 32.9 pg (27.0-33.0); Mean Corpuscular Volume 95.5 fL (80.0-98.0); Mean Platelet Volume 9.9 fL (9.4-12.4); Monocytes Absolute Auto 0.7 X10*3/uL (0.1-1.2); Monocytes Percent Auto 9.5 % (2-11); Neutrophils Percent Auto 80.6 % (45-73); Red Blood Count 3.59 X10*6/uL (4.60-5.80); Red Cell Distribution Width 12.5 % (11.0-16.0); White Blood Count 7.4 X10*3/uL (4.8-10.8)
[2024-07-27 12:34] LABS: Platelet Count 99 X10*3/uL (160-400)
[2024-07-27 12:36] LABS: Appearance Urine Hazy; Color Urine Yellow; Glucose Urine UA Negative (Negative); Leukocyte Esterase Urine Moderate (2+) (Negative); Nitrite Urine Negative (Negative); UMIC TRIGGER UACC YES; Urine Blood Large (3+) (Negative); Urine Ketones Negative (Negative); Urine Protein Negative (Neg-Trace)
[2024-07-27 12:46] LABS: Bacteria Urine 1+ (None Seen); Hyaline Casts Urine 0-2 /LPF (0-2); RBC Urine >20 /HPF (0-2); Squamous Epithelial Cell Urine 0-2 /HPF (0-2); UACC Culture Trigger YES; WBC Urine >50 /HPF (0-5)
[2024-07-27 12:53] LABS: Alanine Aminotransferase 25 U/L (0-40); Albumin Level 3.4 g/dL (3.5-5.0); Alkaline Phosphatase 104 U/L (39-117); Anion Gap 13 (12-20); Aspartate Amino Transferase 22 U/L (5-37); Bilirubin Total 1.1 mg/dL (0.0-1.0); Blood Urea Nitrogen 16 mg/dL (9-16); Calcium 8.1 mg/dL (8.4-10.2); Carbon Dioxide 18 mmol/L (22-29); Chloride 108 mmol/L (96-108); Creatinine Clr Calc Pharmacy 44.4; Estimated Glomerular Filt Rate 54; Glucose Random 124 mg/dL (60-115); Potassium 4.2 mmol/L (3.3-5.1); Sodium 135 mmol/L (135-145)
[2024-07-27 13:14] LABS: Influenza A PCR NEGATIVE (Negative); Influenza B PCR NEGATIVE (Negative); Resp Syncy Virus RNA Qual PCR NEGATIVE (Negative); SARS COV2 PCR INHOUSE NEGATIVE (Negative)
[2024-07-27 13:19] VITALS: BP 116/61; PULSE 76; RESP 18; TEMP 36.6; O2SAT 94
[2024-07-27 13:29] LABS: Lactic Acid 1.8 mmol/L (0.5-2.0)
[2024-07-27] MEDS: cefTRIAXone sodium 1 GM in 0.9 % Sodium Chloride 50 ML IV (14:37)
[2024-07-27 16:21] VITALS: BP 134/61; PULSE 102; RESP 22; TEMP 36.7; O2SAT 92
--- NOTE | 2024-07-27 16:38 | PC.NURSE ---
Attempt to d/c pt. Very unstable on feet, increased WOB and SOB, cyanotic nail beds, increased confusion. Maria Luz Gloria NP notified.
--- NOTE | 2024-07-27 16:52 | PC.NURSE ---
SENIOR IT SPECIALIST ok with d/c. SENIOR IT SPECIALIST spoke with pt.'s who says that this is pt.'s baseline and she is comfortable taking him back.
--- NOTE | 2024-07-27 17:50 | PC.NURSE ---
Maria C, spouse, wants to leave additional contact number in pt.'s chart - [phone]
--- NOTE | 2024-07-27 18:49 | PC.NURSE ---
Bed change and incontinence care provided.
--- NOTE | 2024-07-27 19:10 | PC.NURSE ---
Report given to Cristine Hinkle RN
[2024-07-27 19:31] VITALS: BP 140/63; PULSE 97; RESP 18; TEMP 37.2; O2SAT 93
[2024-07-27 19:32] VITALS: BP 140/63; PULSE 97; RESP 18; TEMP 37.2; O2SAT 93
== END 2024-07-27 19:33 | disposition home or self-care (01) ==
PROVIDERS: Registered Nurse Emergency; Emergency Provider Student in an Organized Health Care Education/Training Program; PCP Internal Medicine
DX: N39.0 Urinary tract infection, site not specified (principal); R09.02 Hypoxemia; Z03.818 Encounter for observation for suspected exposure to other biological agents ruled out; Z79.899 Other long term (current) drug therapy
CPT/HCPCS: 0241U; 36415; 71046; 80053; 81001; 83605; 85025; 87040; 87077; 87086; 87088; 87186; 87205; 96365; 99284; J0696

== ENCOUNTER 2024-07-28 17:10 | Inpatient (IN) | payer OTHER, MEDICARE, SELFPAY ==
--- NOTE | ~2024-07-28 | CT_ITS ---
EXAMINATION: CT ABDOMEN AND PELVIS WITHOUT CONTRAST CLINICAL INFORMATION: UTI and bacteremia. COMPARISON: None available. TECHNIQUE: Multidetector volumetric imaging was performed from the superior aspect of the liver through the pubic symphysis. Sagittal and coronal reformatted images were obtained on the technologist's workstation. This CT examination was performed using dose optimization techniques as appropriate, variously including the following: *Automated exposure control *Adjustment of mA and/or kV according to patient size (this includes techniques or standardized protocols for targeted exams where dose is matched to indication/reason for exam; i.e. extremities or head) *Use of iterative reconstruction technique DLP: 501 mGy-cm FINDINGS: LUNG BASES: Moderate paraseptal emphysema. Lower lobe bronchiectasis. LIVER, GALLBLADDER, AND BILIARY TREE: The liver is normal in size, shape, and attenuation. No focal hepatic lesion or biliary ductal dilatation is present. The gallbladder is unremarkable with no evidence of radiopaque gallstones, gallbladder wall thickening, or obvious pericholecystic inflammatory changes. PANCREAS: Unremarkable. SPLEEN: Unremarkable. ADRENAL GLANDS: Unremarkable. KIDNEYS AND URETERS: The kidneys are normal in size, shape, and attenuation. No hydronephrosis, hydroureter, or calculi seen. No perinephric stranding. BLADDER: Unremarkable. GASTROINTESTINAL TRACT: The large and small bowel are normal in caliber. Mild colonic diverticulosis. No evidence of diverticulitis. Stool ball noted in the rectum. ABDOMINAL WALL: No significant hernia is appreciated. LYMPH NODES: Normal. VASCULAR: Extensive atherosclerosis. PELVIC VISCERA: Unremarkable. OSSEOUS STRUCTURES: Unremarkable. CT/CT abdomen pelvis wo IV con IMPRESSION: 1. No acute findings in the abdomen or pelvis. 2. Moderate paraseptal emphysema and lower lobe bronchiectasis. Fleischner guidelines were followed. Electronically signed by: Sebastien Kyle MD 07/29/2024 04:33 PM EDT
[2024-07-28 17:18] VITALS: BP 74/39; PULSE 78; RESP 18; TEMP 36.6; O2SAT 94
--- NOTE | 2024-07-28 17:25 | ECG_ITS ---
Test Reason : SEPSIS Blood Pressure : / mmHG Vent. Rate : 070 BPM Atrial Rate : 070 BPM P-R Int : 166 ms QRS Dur : 084 ms QT Int : 402 ms P-R-T Axes : 046 003 074 degrees QTc Int : 434 ms Normal sinus rhythm Low voltage QRS Nonspecific ST abnormality Abnormal ECG When compared with ECG of 26-MAY-2023 09:53, Premature atrial complexes are no longer Present Nonspecific ST abnormality is now Present Referred By: Chantelel Singh Electronically Signed By:AMANDA SALINAS
--- NOTE | 2024-07-28 17:25 | ED_ITS ---
HPI - General Adult General Chief complaint: Recheck/Abnormal Lab/Rx Stated complaint: FEVER Time Seen by Provider: 07/28/24 17:25 Source: patient, family (patient's ) and EMS Mode of arrival: EMS Limitations: no limitations History of Present Illness ED Provider: Chantelle Singh PA-C HPI narrative: Patient is a 78 year old assigned male at with a history of HTN, DM, COPD, DM, PAD, memory deficit, and recent UTI (diagnosed 07/27/2024) presenting to the emergency department today with a cough and fever. Patient's states that the patient was seen here yesterday and diagnosed with a UTI. Patient's states that she wanted to take him home last night so she refused medical admission. Patient's states that the patient has continued to cough at home and has uncontrolled fevers. Patient's states that they received a call today stating that the patient's blood culture was positive and they should return to the ER. EMS states that the patient was at 89% on RA when they arrived on scene so they placed him 2 liters of oxygen via nasal canula. Patient denies any dizziness, lightheadedness, abdominal pain, nausea, vomiting, chills, blurry vision, double vision, loss of vision, chest pain, difficulty breathing, shortness of breath, back pain, night sweats, syncope or a near syncopal episode, recent trauma or falls, bowel incontinence, bladder incontinence, or any other complaints at this time. Relieving factors: none Exacerbating factors: none Associated symptoms: cough and fever/chills Related Data Home Medications ?Medication ?Instructions ?Recorded ?Confirmed albuterol sulfate 90 mcg/actuation 2 puff inhalation Q4-6H PRN 05/26/23 05/26/23 aerosol inhaler Shortness Of Breath ammonium lactate 12 % topical cream 1 appl topical BID PRN Dry Skin 05/26/23 05/26/23 amoxicillin 500 mg-potassium 1 tab PO BID 05/26/23 05/26/23 clavulanate 125 mg tablet aspirin 81 mg tablet,delayed 81 mg PO DAILY 05/26/23 05/26/23 release atorvastatin 80 mg tablet 80 mg PO BEDTIME 05/26/23 05/26/23 cetirizine 10 mg tablet (Zyrtec) 10 mg PO DAILY 05/26/23 05/26/23 ferrous sulfate 325 mg (65 mg 325 mg PO DAILY 05/26/23 05/26/23 iron) tablet fluticasone fur. 100 mcg-umeclid 1 ea inhalation DAILY 05/26/23 05/26/23 62.5 mcg-vilant 25 mcg inhalat.powder (Trelegy Ellipta) metformin 500 mg tablet 500 mg PO BID 05/26/23 05/26/23 metoprolol succinate 50 mg 50 mg PO DAILY 05/26/23 05/26/23 tablet,extended release 24 hr minocycline 100 mg capsule 100 mg PO BID 05/26/23 05/26/23 Previous Rx's ?Medication ?Instructions ?Recorded cefuroxime axetil 250 mg tablet 250 mg PO BID #14 tabs 07/27/24 Allergies Allergy/AdvReac Type Severity Reaction Status Date / Time egg Allergy Unknown Verified 07/28/24 17:35 Sulfa (Sulfonamide Allergy Unknown Verified 07/28/24 17:35 Antibiotics) Review of Systems 2 Constitutional: Constitutional: Reports no additional constitutional complaints, Denies chills, Reports fever(s), Reports malaise and Denies night sweats Eyes: Eyes: Reports no additional eye complaints, Denies blurry vision, Denies change in vision, Denies diplopia, Denies eye discharge, Denies loss of vision and Denies eye pain ENT: Denies dizziness Cardiovascular: Cardiovascular: Reports no additional cardiovascular complaints, Denies chest pain, Denies lightheadedness, Denies Loss of Consciousness, Denies dyspnea and Denies dyspnea on exertion Respiratory: Respiratory: Denies chest congestion, Reports cough, Denies hemoptysis, Denies dyspnea and Denies dyspnea on exertion Gastrointestinal: Gastrointestinal: Reports no additional gastrointestinal complaints, Denies abdominal pain, Denies melena, Denies hematochezia, Denies change in bowel habits and Denies change in stool character Genitourinary: Genitourinary: Reports no additional male genitourinary complaints Musculoskeletal: Musculoskeletal: Reports no additional musculoskeletal complaints, Denies numbness and Denies tingling Neurologic: Denies dizziness, Denies loss of vision, Denies numbness and Denies tingling Psychiatric: Psychiatric: Reports no additional psychiatric complaints Endocrine: Endocrine: Reports no additional endocrine complaints Hematologic/Lymphatic: Hematologic/Lymphatic: Reports no additional hematologic/lymphatic complaints Allergic/Immunologic: Allergic/Immunologic: Reports no additional allergic/immunologic complaints PMFSH Past Medical History Attestation statement: The following information was validated with the patient. (all information validated with the patient's ) Source: old records reviewed, obtained from family (patient's provided additional history and confirmed the history provided by the patient.) and nursing notes reviewed Social History Social History Alcohol intake: never Smoked in Last 30 Days: No Use of substances other than those prescribed or required for medical reasons: No Advance Directives: Yes Advance Directives on File: Yes Advance Directives Date on File: 05/26/23 Do you have a plan to hurt others: No Plan Physical Exam ED Vital Signs: Vital Signs - 24 hr 07/28/24 17:18 07/28/24 17:32 07/28/24 19:07 Temperature 97.8 F Pulse Rate 78 74 63 Respiratory Rate 18 24 H 25 H Blood Pressure 74/39 L 81/42 L 87/48 L Pulse Oximetry 94 94 93 Oxygen Delivery Method Nasal Cannula Nasal Cannula Nasal Cannula Oxygen Flow Rate 2 2 07/28/24 19:59 07/28/24 20:46 Temperature 98.0 F Pulse Rate 63 64 Respiratory Rate 17 18 Blood Pressure 105/52 L Pulse Oximetry 94 Oxygen Delivery Method Nasal Cannula Oxygen Flow Rate 2 BMI result Body Mass Index 26.6 Const General: cooperative, no acute distress, alert and awake Nutritional Appearance: well nourished Orientation/consciousness: patient oriented x3 Limitations: no limitations HENMT Head: Yes normal to inspection and Yes atraumatic Ears: hearing grossly normal bilaterally and external ears normal General nose exam: Normal external nose present, no nasal discharge noted and no epistaxis Face and sinus: Yes normal facial exam, No abrasion and No laceration Mouth: Normal oral and palatal mucosa present, no drooling and no muffled voice Eyes General: appearance normal, both eyes and all related structures Periorbital: periorbital findings normal Eyelids: Yes eyelids normal Conjunctivae: conjunctivae normal Pupils: Equal, round and reactive pupils present EOM: EOMs intact bilaterally Neck Neck: Yes normal visual inspection, Yes full ROM and Yes no lymphadenopathy Chest Chest palpation & inspection: normal inspection of the chest Resp Effort & Inspection: able to speak in complete sentences and Actively coughing Quality: productive Auscultation: wheezes scattered wheezes Cardio Jugular venous distension: no JVD Rate: regular rate Rhythm: regular rhythm Heart sounds: S1 normal heart sound present and S2 normal heart sound present GI Inspection: Yes normal to inspection Palpation (GI): Soft to palpation, nontender, no guarding and not rigid Neuro General: patient oriented x3 and moves all extremities Cranial nerves: Yes Equal, round and reactive pupils present Cognition (Neuro): normal cognition Extrem General: Yes normal to inspection, Yes full ROM and Yes capillary refill normal Psych Appearance: grossly normal Mental Status: mental status grossly normal Affect: normal affect Attitude: cooperative Thought process: Normal thought process present Thought content: Normal thought content present Insight: Good insight present (Psych) Medications Administered Generic Name Dose Route Start Last Admin Trade Name Freq PRN Reason Stop Dose Admin Azithromycin 500 mg/ Sodium 250 mls @ 125 mls/hr 07/28/24 20:36 07/28/24 20:49 Chloride IV 07/28/24 22:35 125 mls/hr ONCE ONE Administration Discontinued Medications Generic Name Dose Route Start Last Admin Trade Name Freq PRN Reason Stop Dose Admin Albuterol Sulfate 2.5 mg/ 0 mg 07/28/24 20:41 07/28/24 20:46 Albuterol/Ipratropium 3 ml INHALE 07/28/24 20:42 1 dose ONCE ONE Administration Ceftriaxone Sodium 1 gm/ 50 mls @ 100 mls/hr 07/28/24 17:25 07/28/24 19:20 Sodium Chloride IV 07/28/24 17:54 Infused ONCE ONE Infusion Lactated Ringer's 2,382 mls @ 2,382 mls/hr 07/28/24 17:44 07/28/24 18:32 Lr 30 ml/kg infuse over 1 hr (2382 ml) 07/28/24 18:43 2,382 mls/hr IV Administration .Q1H ONE Magnesium Sulfate 2 gm in 50 mls @ 25 mls/hr 07/28/24 18:47 07/28/24 19:05 Magnesium Sulfate/H2o IV 07/28/24 20:46 25 mls/hr ONCE ONE Administration Methylprednisolone Sodium Succinate 60 mg 07/28/24 20:36 07/28/24 20:48 Methylprednisolone Sod Succ 125 Mg/2 Ml Vial IVPUSH 07/28/24 20:37 60 mg ONCE ONE Administration Medical Decision Making Medical Decision Making MDM Narrative: Patient is a 78 year old assigned male at with a history of HTN, DM, COPD, DM, PAD, memory deficit, and recent UTI (diagnosed 07/27/2024) presenting to the emergency department today with a cough and fever. Patient's physical exam was as noted in the physical exam portion of this note. Patient's blood work showed a sodium of 129, BUN 27, CR 1.82, lactic acid of 2.1, and magnesium of 1.3. Patient's blood culture from 07/27/2024 showed gram-positive cocci in pairs and short chains however, this was only one of two bottles. Patient's urine from 07/27/2024 showed an acute UTI. Patient's chest x-ray from 07/27/2024 showed a left lower lobe consolidation. Patient's EKG was unremarkable. Patient was placed on 2 liters of oxygen by EMS because he was hypoxic on scene at 89%. Patient was given IV magnesium, solu-medrol, 30mg/kg of LR, Azithromycin, and Ceftriaxone. I considered the patient to be possibly septic at 1725. I spoke with the hospitalist team who agreed to admission. I explained my physical exam findings as well as all test results to the patient and the patient's . I answered all questions asked by the patient and the patient's . Patient and the patient's verbalized agreement and understanding with this treatment plan and admission. Differential Diagnosis Differential Diagnoses: The differential diagnosis associated with the presentation includes Pneumonia UTI Sepsis Hypoxia Hypomagnesemia PILY Admission/Observation Consideration of admission/observation: Escalation of care including admission/observation considered Patient admitted as noted in the MDM Rationale portion of this note. Consult Healthcare Provider Management of the patient was discussed with: Hospitalist (agreed to admission as noted in the MDM Rationale portion of this note.) Lab Data [facility] Lab Attestation statement: I reviewed the patient's lab results. My interpretation of these results are in the MDM Rationale portion of this note. 07/28/24 17:56 07/28/24 17:56 Labs: Lab Results 07/28/24 Range/Units 17:56 WBC 7.2 (4.8-10.8) X10*3/uL RBC 3.61 L (4.60-5.80) X10*6/uL Hgb 11.8 L (14.0-18.0) g/dl Hct 34.2 L (42.0-52.0) % MCV 94.7 (80.0-98.0) fL MCH 32.7 (27.0-33.0) pg MCHC 34.5 (31.0-36.0) g/dl RDW 12.9 (11.0-16.0) % Plt Count 105 L (160-400) X10*3/uL MPV 9.8 (9.4-12.4) fL Immature Gran % (Auto) 0.4 (0.0-0.4) % Neut % (Auto) 77.9 H (45-73) % Lymph % (Auto) 10.0 L (20-40) % [place] % (Auto) 9.2 (2-11) % Eos % (Auto) 1.9 (0-4) % Baso % (Auto) 0.6 (0-2) % Lymph # (Auto) 0.7 L (1.2-4.9) X10*3/uL [place] # (Auto) 0.7 (0.1-1.2) X10*3/uL Eos # (Auto) 0.1 (0.0-0.4) X10*3/uL Baso # (Auto) 0.0 (0.0-0.2) X10*3/uL Abs Immat Gran (auto) 0.03 (0.00-0.03) X10*3/uL Absolute Neuts (auto) 5.6 (2.0-8.3) x10*3/uL Absolute Nucleated RBC 0.000 (0.0-0.012) X10*3/uL Nucleated RBC % (auto) 0.0 (0.0-0.2) /100WBC PT 14.1 H (10.9-12.4) SEC INR 1.2 H (0.9-1.1) APTT 28.4 (26.0-36.8) SEC Sodium 129 L (135-145) mmol/L Potassium 4.0 (3.3-5.1) mmol/L Chloride 102 (96-108) mmol/L Carbon Dioxide 17 L (22-29) mmol/L Anion Gap 14 (12-20) BUN 27 H (9-16) mg/dL Creatinine 1.82 H (0.5-1.4) mg/dL Estim Creat Clear Calc 32.3 Estimated GFR 36 Random Glucose 129 H (60-115) mg/dL Lactic Acid 2.1 H* (0.5-2.0) mmol/L Calcium 7.8 L (8.4-10.2) mg/dL Magnesium 1.3 L* (1.6-2.6) mg/dL Total Bilirubin 1.3 H (0.0-1.0) mg/dL AST 23 (5-37) U/L ALT 22 (0-40) U/L Alkaline Phosphatase 98 (39-117) U/L Troponin I High Sens 17.5 (<3.5-35.0) ng/L Total Protein 7.3 (6.5-8.0) g/dL Albumin 3.4 L (3.5-5.0) g/dL Influenza Type A (PCR) NEGATIVE (Negative) Influenza Type B (PCR) NEGATIVE (Negative) RSV RNA Qual (PCR) NEGATIVE (Negative) SARS-CoV-2 RNA (RT-PCR) NEGATIVE (Negative) Independent Interpretation I performed an independent interpretation of an: EKG and Plain X-Ray Interpretation: My interpretation is in agreement with the radiologist's impression of this imaging study. L EXAMINATION: XR CHEST CLINICAL INFORMATION: Hypoxia. COMPARISON: None available. TECHNIQUE: 2 views of the chest were obtained. FINDINGS: The heart is normal in size. There is calcific atherosclerotic disease of the aorta. The right lung is clear. There is a dense left lower lobe consolidation. No pleural effusion. No pneumothorax. No acute osseous abnormality. XR/XR chest 2V IMPRESSION: Left lower lobe consolidation. Electronically signed by: Saúl Heller DO 07/27/2024 07:22 PM EDT RP Dictated By: Saúl Heller Jr, DO Signed By: Electronically signed by Saúl Heller Jr, DO 07/27/241921 Vent. Rate: 070 BPM Atrial Rate: 070 BPM P-R Int: 166 ms QRS Dur: 084 ms QT Int: 402 ms P-R-T Axes: 046 003 074 degrees QTc Int: 434 ms Normal sinus rhythm Low voltage QRS Borderline ECG When compared with ECG of 26-MAY-2023 09:53, Premature atrial complexes are no longer Present DD/ [id number] Radiology Impression Discussion of test interpretation with radiology: I have reviewed the radiologist's reading. Independent Historian Clinical information obtained from an independent historian. History obtained from or confirmed by: Spouse (patient's provided additional history and confirmed the history provided by the patient.) and EMS (EMS provided additional history and confirmed the history provided by the patient.) Critical Care Time Critical Care Time Critical Care Time: Yes Total Critical Care Time: 58 Attestation: I spent 58 minutes of Critical Care Time with this patient. This does not include time spent on separately reported billable procedures. Discharge Plan Discharge Clinical Impression: Pneumonia, Acute UTI, Cough, COPD exacerbation, Hypoxia, Hypomagnesemia Patient Disposition: Admitted As Inpatient Print Language: Citizen Of [place]
[2024-07-28 17:28] VITALS: BMI 26.4
[2024-07-28 17:32] VITALS: BP 81/42; BP 90/60; PULSE 74; PULSE 77; RESP 24; O2SAT 93; O2SAT 94; BMI 26.6
[2024-07-28 18:03] LABS: MANUAL DIFF FLAG NO
[2024-07-28 18:10] LABS: INTERNATIONAL NORM RATIO 1.2 (0.9-1.1); Prothrombin Time 14.1 SEC (10.9-12.4)
[2024-07-28 18:12] LABS: Partial Thromboplastin Time 28.4 SEC (26.0-36.8)
[2024-07-28 18:28] LABS: Lactic Acid 2.1 mmol/L (0.5-2.0)
[2024-07-28] MEDS: cefTRIAXone sodium 1 GM in 0.9 % Sodium Chloride 50 ML IV (18:29)
[2024-07-28] MEDS: LACTATED RINGERS 2382 ML IV (18:32)
[2024-07-28 18:46] LABS: Influenza A PCR NEGATIVE (Negative); Influenza B PCR NEGATIVE (Negative); Resp Syncy Virus RNA Qual PCR NEGATIVE (Negative); SARS COV2 PCR INHOUSE NEGATIVE (Negative); Troponin-I High Sensitivity 17.5 ng/L (<3.5-35.0)
[2024-07-28 18:48] LABS: Alanine Aminotransferase 22 U/L (0-40); Albumin Level 3.4 g/dL (3.5-5.0); Alkaline Phosphatase 98 U/L (39-117); Anion Gap 14 (12-20); Aspartate Amino Transferase 23 U/L (5-37); Bilirubin Total 1.3 mg/dL (0.0-1.0); Blood Urea Nitrogen 27 mg/dL (9-16); Calcium 7.8 mg/dL (8.4-10.2); Carbon Dioxide 17 mmol/L (22-29); Chloride 102 mmol/L (96-108); Creatinine Clr Calc Pharmacy 32.3; Estimated Glomerular Filt Rate 36; Glucose Random 129 mg/dL (60-115); Sodium 129 mmol/L (135-145); Total Protein 7.3 g/dL (6.5-8.0)
[2024-07-28] MEDS: Magnesium Sulfate/H2O 2 GM/50 ML PIGGYBACK IV (19:05)
[2024-07-28 19:07] VITALS: BP 87/48; PULSE 63; RESP 25; O2SAT 93
[2024-07-28 19:18] LABS: Magnesium 1.3 mg/dL (1.6-2.6)
[2024-07-28 19:33] LABS: Basophils Percent Auto 0.6 % (0-2); Eosinophils Absolute Auto 0.1 X10*3/uL (0.0-0.4); Eosinophils Percent Auto 1.9 % (0-4); Hematocrit 34.2 % (42.0-52.0); Hemoglobin 11.8 g/dl (14.0-18.0); Imm Gran Abs Auto 0.03 X10*3/uL (0.00-0.03); Imm Gran Pct Auto 0.4 % (0.0-0.4); Lymphocytes Absolute Auto 0.7 X10*3/uL (1.2-4.9); Mean Corpuscular HGB Conc 34.5 g/dl (31.0-36.0); Mean Corpuscular Hemoglobin 32.7 pg (27.0-33.0); Mean Corpuscular Volume 94.7 fL (80.0-98.0); Mean Platelet Volume 9.8 fL (9.4-12.4); Monocytes Absolute Auto 0.7 X10*3/uL (0.1-1.2); Monocytes Percent Auto 9.2 % (2-11); Neutrophils Absolute Auto 5.6 x10*3/uL (2.0-8.3); Neutrophils Percent Auto 77.9 % (45-73); Platelet Count 105 X10*3/uL (160-400); Red Blood Count 3.61 X10*6/uL (4.60-5.80); Red Cell Distribution Width 12.9 % (11.0-16.0); White Blood Count 7.2 X10*3/uL (4.8-10.8)
[2024-07-28 19:59] VITALS: BP 105/52; PULSE 63; RESP 17; TEMP 36.7; O2SAT 94
[2024-07-28 20:01] LABS: Reflex Lactate? Lactic Acid Added
[2024-07-28 20:46] VITALS: PULSE 64; RESP 18; O2SAT 91
[2024-07-28] MEDS: Albuterol Sulfate 2.5 MG, Albuterol/Iprat 2.5/0.5MG 3 ML 3 ML INHALE (20:46)
[2024-07-28] MEDS: methylPREDNISolone Sod Succ 125 MG/2 ML VIAL 60 MG IVPUSH (20:48)
[2024-07-28] MEDS: Azithromycin 500 MG in 0.9 % Sodium Chloride 250 ML 125 MG IV (20:49)
[2024-07-28 21:07] LABS: VBG Base Excess -5.4 mmol/L; VBG HCO3 17 mmol/L (22-26); VBG pCO2 28 mmHg; VBG pO2 62 mmHg
[2024-07-28 21:15] LABS: Venous Blood Gas Refer to POC result
[2024-07-28 21:22] LABS: ~Lactic Acid-LAB USE ONLY 1.8 mmol/L (0.5-2.0)
--- NOTE | 2024-07-28 21:26 | PHA.MEDREC ---
Addendum entered by Lobito Peña RPh 07/28/24 21:41: Med rec reviewed Original Note: Pharmacy Consult ? Medication Reconciliation Pharmacy has completed the medication reconciliation. Spoke to patient to confirm med list. states patient no longer takes Trelegy Ellipta because the patient is now on Anoro, Minocycline 100mg. ( patient had an allergic reaction)
--- NOTE | 2024-07-28 22:04 | P.HPHOSP_ITS ---
History of Present Illness Date of Service: 07/28/24 Attending physician on admission: Sheela Flor Chief Complaint: Fever, cough, abnormal labs Pt is a 78-year-old male with a PMH significant for?COPD on prn home O2, snw-[id number]-[id number] type 2 diabetes, HTN, peripheral artery disease, and memory deficit who presents to the ED with?cough and fever measured at home. Patient is alert and oriented x2, but not to time or fully to situation. HPI thus obtained from chart and provider review. Patient was previously at the ED yesterday where he was seen and evaluated and diagnosed with a UTI and pneumonia. ED provider wanted to admit patient to the hospital, however patient has /HCP refused medical admission as she felt she and her family would be able to care for him at home. was also contacted earlier today when 1/2 of patient's blood cultures came back positive for Gram-positive cocci in pairs and short chains. reports patient has been experiencing significant cough and fevers not controlled with Tylenol at home. Patient himself states he feels ?a little tired? but otherwise denies any acute medical complaints. In the ED pt was afebrile, but tachypneic up to 25, hypotensive as low as 74/39, and noted to be desatting into the 80s on RA during interview and exam. Labs were significant for hyponatremia 129, BUN 27, creatinine 1.82 (elevated from 1.28 yesterday), lactic acid 2.1 with repeat 1.8, magnesium 1.3, and bilirubin 1.3. No leukocytosis. Stable normocytic anemia 11.8/34.2. Troponin WNL at 17.5. Tested negative for flu, RSV, COVID. CXR yesterday showed left lower lobe consolidation. 1/2 blood culture positive for Gram-positive cocci in pairs and short chains. UA still preliminary showing Enterococcus/Streptococcus 50- 100,000. EKG demonstrated normal sinus rhythm with T-wave inversion in septal leads but no evidence of ST elevations or depressions. Pt was treated with IVF, Mag sulfate, DuoNebs, Solu-Medrol, azithromycin, and ceftriaxone. Pt will be admitted to the hospital for treatment and further evaluation of PILY and acute hypoxic respiratory failure in the setting COPD exacerbation with underlying pneumonia. Review of Systems 2 Review of Systems: Unable to obtain due to patient's mentation [facility] Social History Alcohol intake: never Smoked in Last 30 Days: No Use of substances other than those prescribed or required for medical reasons: No Advance Directives: Yes Advance Directives on File: Yes Advance Directives Date on File: 05/26/23 Do you have a plan to hurt others: No Plan Meds Allergies Allergy/AdvReac Type Severity Reaction Status Date / Time egg Allergy Unknown Verified 07/28/24 17:35 minocycline Allergy Unknown Verified 07/28/24 21:26 Sulfa (Sulfonamide Allergy Unknown Verified 07/28/24 17:35 Antibiotics) Active Medications: Current Medications Azithromycin 500 mg/ Sodium (Chloride) 250 mls @ 125 mls/hr IV ONCE ONE Stop: 07/28/24 22:35 Last Admin: 07/28/24 20:49 Dose: 125 mls/hr Home Medications ?Medication ?Instructions ?Recorded ?Confirmed ?Last Taken ?Type albuterol sulfate 90 mcg/actuation 2 puff inhalation Q4-6H PRN 05/26/23 07/28/24 07/28/24 History aerosol inhaler Shortness Of Breath ammonium lactate 12 % topical cream 1 appl topical BID PRN Dry Skin 05/26/23 07/28/24 07/28/24 History aspirin 81 mg tablet,delayed 81 mg PO DAILY 05/26/23 07/28/24 07/28/24 History release atorvastatin 80 mg tablet 80 mg PO BEDTIME 05/26/23 07/28/24 07/28/24 History cetirizine 10 mg tablet (Zyrtec) 10 mg PO DAILY 05/26/23 07/28/24 07/28/24 History ferrous sulfate 325 mg (65 mg 325 mg PO DAILY 05/26/23 07/28/24 07/28/24 History iron) tablet metformin 500 mg tablet 500 mg PO BID 05/26/23 07/28/24 07/28/24 History metoprolol succinate 50 mg 50 mg PO DAILY 05/26/23 07/28/24 07/28/24 History tablet,extended release 24 hr umeclidinium 62.5 mcg-vilanterol 1 ea inhalation DAILY 07/28/24 07/28/24 07/28/24 History 25 mcg/actuation powdr for inhalation (Anoro Ellipta) Physical Exam 2 Vital Signs and Narrative: Vital Signs: Last Vital Signs Temp 98.0 F 07/28/24 19:59 Pulse 64 07/28/24 20:46 Resp 18 07/28/24 20:46 BP 105/52 L 07/28/24 19:59 Pulse Ox 94 07/28/24 19:59 O2 Del Method Nasal Cannula 07/28/24 19:59 O2 Flow Rate 2 07/28/24 19:59 Oxygen Flow Rate 3 07/28/24 17:32 BMI result Body Mass Index 26.6 General: AOx2, not to time or fully to situation. In no acute distress Resp: Diffuse wheezing bilaterally CVS: S1, S2, RRR GI: +BS, NT, no distention. Small reducible, nontender umbilical hernia Skin: Warm, dry Neuro: Cranial nerves II-XII grossly intact bilaterally. Motor grossly intact bilaterally, though with generalized weakness noted, especially of lower extremities Extremities: No edema Psych: Pleasantly confused Results Labs 07/28/24 17:56 07/28/24 17:56 Labs: Laboratory Results - last 24 hr 07/28/24 07/28/24 07/28/24 17:56 20:57 21:03 MCV 94.7 MCH 32.7 MCHC 34.5 RDW 12.9 Plt Count 105 L MPV 9.8 Immature Gran % (Auto) 0.4 Neut % (Auto) 77.9 H Lymph % (Auto) 10.0 L [place] % (Auto) 9.2 Eos % (Auto) 1.9 Baso % (Auto) 0.6 Lymph # (Auto) 0.7 L [place] # (Auto) 0.7 Eos # (Auto) 0.1 Baso # (Auto) 0.0 Abs Immat Gran (auto) 0.03 Absolute Neuts (auto) 5.6 Absolute Nucleated RBC 0.000 Nucleated RBC % (auto) 0.0 PT 14.1 H INR 1.2 H APTT 28.4 VBG pH 7.40 VBG pCO2 28 VBG pO2 62 VBG HCO3 17 L VBG O2 Saturation 90.0 VBG Base Excess -5.4 Anion Gap 14 Estim Creat Clear Calc 32.3 Estimated GFR 36 Random Glucose 129 H Lactic Acid 2.1 H* Lactic Acid F/U @ 2Hr 1.8 Calcium 7.8 L Magnesium 1.3 L* Total Bilirubin 1.3 H AST 23 ALT 22 Alkaline Phosphatase 98 Troponin I High Sens 17.5 Total Protein 7.3 Albumin 3.4 L Influenza Type A (PCR) NEGATIVE Influenza Type B (PCR) NEGATIVE RSV RNA Qual (PCR) NEGATIVE SARS-CoV-2 RNA (RT-PCR) NEGATIVE Assessment and Plan (1) Hypomagnesemia: Status: Acute (2) Hypoxia: Status: Acute (3) COPD exacerbation: Status: Acute (4) Acute UTI: Status: Acute (5) Pneumonia: Status: Acute Plan Pt is a 78-year-old male with a PMH significant for?COPD on prn home O2, kwc-gnsdmtt-uwvapjcyh type 2 diabetes, HTN, peripheral artery disease, and memory deficit who presents to the ED with?cough and fever measured at home. Pt will be admitted to the hospital for treatment and further and evaluation of PILY and acute hypoxic respiratory failure in the setting COPD exacerbation with underlying pneumonia. Acute hypoxic respiratory failure in the setting of COPD exacerbation with underlying pneumonia Patient desatting into 80s on RA, CXR with LLL consolidation, increased cough and SOB per , diffuse wheezing upon auscultation Does not meet sepsis criteria: Tachypnea, but no tachycardia, fever, or leukocytosis; lactic acid 2.1 with repeat 1.8 after IVF Patient given IVF and started on broad-spectrum antibiotics in the ED Will treat with ceftriaxone and azithromycin, started 07/28/2024 DuoNebs, Solu-Medrol, guaifenesin Titrate supplemental oxygen >92, wean as tolerated Monitor respiratory status PILY Creatinine 1.82 at time of presentation, elevated from 1.28 from yesterday's labs Likely secondary to hypovolemia Patient given IVF in the ED Follow creatinine Hypotension Patient initially hypotensive as low as 74/39 in the ED Likely secondary to hypovolemia Given IVF in the ED with good response, currently 114/67 Monitor BP closely Lactic acidosis, resolved Initial lactic acid 2.1 at time of presentation Repeat WNL at 1.8 after IVF Question of bacteremia 1/2 blood cultures from 07/27 positive for Gram-positive cocci in pairs and short chains Repeat blood cultures, however patient has already received 1 round of IV azithromycin and ceftriaxone Consider ID consult UTI Tested positive for UTI yesterday Preliminary cultures growing Enterococcus/Streptococcus [id number] Being covered with ceftriaxone azithromycin as above No sepsis as above Follow urine culture Hyponatremia Sodium 129 at time of presentation Likely secondary to hypovolemia Patient received IVF in the ED Follow up BMP Hypomagnesemia Mag 1.3 at time of presentation Given 2 g IV supplementation in the ED Trend labs, replenish as necessary Memory impairment Has not yet been to a neurologist for diagnosis and treatment Not on home meds Follow up outpatient HTN Hold metoprolol due to hypotension PAD Continue aspirin, statin Full Code, but unable to verify with HCP Attending:?Dr. Hawthorne DVT Prophylaxis: Lovenox Pt will require a hospitalization of at least two nights for treatment of?PILY and acute hypoxic respiratory failure in the setting of COPD with underlying pneumonia that will require administration of supplemental oxygen, IV antibiotics, IV steroids, and breathing treatments. Patient also has multiple electrolyte imbalances that will require IVF and close monitoring of labs. Quality Stroke Does the patient have a stroke diagnosis?: No VTE Prior VTE?: No VTE Risk Level:: Medical - moderate - high VTE Device Contraindication: Treatment Not Indicated VTE Drug Contraindication: N/A - Med Ordered
[2024-07-28 22:47] VITALS: BP 114/67; PULSE 82; RESP 17; TEMP 36.3; O2SAT 94
[2024-07-29] VITALS (7 sets, daily range): BP systolic 120–153; BP diastolic 57–78; PULSE 77–88; RESP 16–20; TEMP 36.2–36.7; O2SAT 92–96
[2024-07-29] MEDS: Heparin Sodium,Porcine 5,000 UNIT/ML VIAL 5000 UNIT SUBCUT (00:03)
[2024-07-29] MEDS: Atorvastatin Calcium 80 MG TABLET PO ×2 (00:03→20:47)
[2024-07-29] MEDS: 0.9 % Sodium Chloride Flush 3 ML SYRINGE IVFLUSH ×3 (01:07→20:47)
[2024-07-29 02:51] LABS: Glucose, Whole Blood 182 mg/dL (60-115)
[2024-07-29 07:36] LABS: Glucose, Whole Blood 205 mg/dL (60-115)
[2024-07-29 07:52] LABS: Anion Gap 14 (12-20); Blood Urea Nitrogen 23 mg/dL (9-16); Calcium 8.6 mg/dL (8.4-10.2); Carbon Dioxide 18 mmol/L (22-29); Chloride 107 mmol/L (96-108); Creatinine Clr Calc Pharmacy 41.1; Estimated Glomerular Filt Rate 48; Glucose Random 223 mg/dL (60-115); Magnesium 2.1 mg/dL (1.6-2.6); Potassium 4.5 mmol/L (3.3-5.1); Sodium 134 mmol/L (135-145)
[2024-07-29] MEDS: Albuterol/Iprat 2.5/0.5MG 3 ML AMPUL.NEB INHALE ×3 (08:09→20:18)
[2024-07-29] MEDS: Loratadine 10 MG TABLET PO (08:41)
[2024-07-29] MEDS: Aspirin Enteric Coated 81 MG TABLET.DR PO (08:41)
[2024-07-29] MEDS: methylPREDNISolone Sod Succ 40 MG/ML VIAL IVPUSH ×2 (08:41→20:46)
[2024-07-29] MEDS: Ampicillin Sodium/Sulbactam Na 3 GM in 0.9 % Sodium Chloride 100 ML IV (08:41)
[2024-07-29] MEDS: Ferrous Sulfate 324 MG TABLET.DR PO (08:41)
[2024-07-29 11:29] LABS: Glucose, Whole Blood 260 mg/dL (60-115)
[2024-07-29] MEDS: Insulin Lispro 100 UNIT/ML 3 ML VIAL SUBCUT ×4 (11:46→20:47)
--- NOTE | 2024-07-29 12:42 | P.PNIM_ITS ---
Subjective Subjective Date of Service: 07/29/24 Interval History: Seen and examined this morning Follow-up for bacteremia, UTI, pneumonia Patient awake, alert, confused. Intermittently combative with staff until arrived and then became and cooperative Review of Systems Review of Systems: Yes all other systems are reviewed and are negative Constitutional Constitutional: Denies chills and Denies fever(s) Cardiovascular Cardiovascular: Denies chest pain Neurologic Neurologic: Reports confusion Psychiatric Psychiatric: Reports confusion Physical Exam 2 Vital Signs: Vital Signs: Last Vital Signs Temp 98.0 F 07/29/24 07:39 Pulse 85 07/29/24 11:34 Resp 18 07/29/24 11:34 BP 151/78 H 07/29/24 09:50 Pulse Ox 96 07/29/24 09:50 O2 Del Method Nasal Cannula 07/29/24 07:39 O2 Flow Rate 2 07/29/24 07:39 Oxygen Flow Rate 3 07/28/24 17:32 BMI result Body Mass Index 26.6 Const: General: comfortable, alert, awake and confusion Nutritional Appearance: average body habitus Orientation/consciousness: oriented to person and confusion Resp: Other: dry basilar crackles, no wheezing Effort & Inspection: normal respiratory effort, able to speak in complete sentences, no respiratory distress and no use of accessory muscles Cardio: Rate: regular rate GI: Inspection: No distended Palpation (GI): Soft to palpation and nontender Neuro: General: oriented to person, moves all extremities, CN's II-XI intact bilaterally and confusion Extrem: General: Yes no pedal edema Objective Data Active Medications Acetaminophen (Acetaminophen 325 Mg Tablet) 650 mg PO Q6H PRN PRN Reason: Pain, Mild (Pain Scale 1-3), fever or headache Albuterol/Ipratropium (Albuterol/Iprat 2.5/0.5mg 3 Ml Ampul.Neb) 3 ml INHALE RQ4H WHILE AWAKE [facility] Last Admin: 07/29/24 11:32 Dose: 3 ml Documented By: KATIE Aspirin (Aspirin Enteric Coated 81 Mg Tablet.) 81 mg PO DAILY [facility] Last Admin: 07/29/24 08:41 Dose: 81 mg Documented By: MO Atorvastatin Calcium (Atorvastatin Calcium 80 Mg Tablet) 80 mg PO BEDTIME [facility] Last Admin: 07/29/24 00:03 Dose: 80 mg Documented By: ROBIN Calcium Carbonate (Calcium Carbonate 750 Mg Tab.Chew) 750 mg PO Q4H PRN PRN Reason: Heartburn Ferrous Sulfate (Ferrous Sulfate 324 Mg Tablet.Dr) 324 mg PO DAILY [facility] Last Admin: 07/29/24 08:41 Dose: 324 mg Documented By: COTEMA Glucose (Glucose Gel 15 Gm Gel..Gram.) 15 gm PO Q15M PRN; Protocol PRN Reason: per Hypoglycemia Standing Ord. Guaifenesin/Dextromethorphan (Guaifenesin Dm 200/20/10 Ml 10 Ml Syrup) 10 ml PO Q6H PRN PRN Reason: Cough Heparin Sodium (Porcine) (Heparin Sodium,Porcine 5,000 Unit/Ml Vial) 5,000 unit SUBCUT Q12H [facility] Last Admin: 07/29/24 10:21 Dose: Not Given Documented By: MICKEYEMA Non-Admin Reason: Patient Refused Azithromycin 500 mg/ Sodium (Chloride) 250 mls @ 125 mls/hr IV Q24H [facility] Dextrose (D10) 250 mls @ 750 mls/hr IV Q15M PRN; Protocol PRN Reason: per Hypoglycemia Standing Ord. Ampicillin Sodium/Sulbactam (Sodium 3 gm/ Sodium Chloride) 100 mls @ 200 mls/hr IV Q6H [facility] Last Infusion: 07/29/24 09:25 Dose: Infused Documented By: MO Insulin Human Lispro (Insulin Lispro 100 Unit/Ml 3 Ml Vial) 0.1 - 10 unit SUBCUT QIDACHS [facility]; Protocol Last Admin: 07/29/24 11:46 Dose: 6 unit Documented By: MICKEYEMA Loratadine (Loratadine 10 Mg Tablet) 10 mg PO DAILY [facility] Last Admin: 07/29/24 08:41 Dose: 10 mg Documented By: MICKEYEMA Magnesium Hydroxide (Milk Of Magnesia 30 Ml Oral.Susp) 30 ml PO DAILY PRN PRN Reason: Constipation Melatonin (Melatonin 3 Mg Tablet) 6 mg PO BEDTIME PRN PRN Reason: Insomnia Methylprednisolone Sodium Succinate (Methylprednisolone Sod Succ 40 Mg/Ml Vial) 40 mg IVPUSH Q12H [facility] Last Admin: 07/29/24 08:41 Dose: 40 mg Documented By: MICKEYEMA Ondansetron HCl (Ondansetron Hcl 4 Mg/2 Ml Vial) 4 mg IVPUSH Q8H PRN PRN Reason: Nausea and Vomiting Sodium Chloride (0.9 % Sodium Chloride Flush 3 Ml Syringe) 3 ml IVFLUSH QSHIFT [facility] Last Admin: 07/29/24 08:41 Dose: 3 ml Documented By: MO Labs 07/28/24 17:56 07/29/24 07:06 Labs: Laboratory Results - last 24 hr 07/28/24 07/28/24 07/28/24 17:56 20:57 21:03 MCV 94.7 MCH 32.7 MCHC 34.5 RDW 12.9 Plt Count 105 L MPV 9.8 Immature Gran % (Auto) 0.4 Neut % (Auto) 77.9 H Lymph % (Auto) 10.0 L [place] % (Auto) 9.2 Eos % (Auto) 1.9 Baso % (Auto) 0.6 Lymph # (Auto) 0.7 L [place] # (Auto) 0.7 Eos # (Auto) 0.1 Baso # (Auto) 0.0 Abs Immat Gran (auto) 0.03 Absolute Neuts (auto) 5.6 Absolute Nucleated RBC 0.000 Nucleated RBC % (auto) 0.0 PT 14.1 H INR 1.2 H APTT 28.4 VBG pH 7.40 VBG pCO2 28 VBG pO2 62 VBG HCO3 17 L VBG O2 Saturation 90.0 VBG Base Excess -5.4 Anion Gap 14 Estim Creat Clear Calc 32.3 Estimated GFR 36 POC Glucose Random Glucose 129 H Lactic Acid 2.1 H* Lactic Acid F/U @ 2Hr 1.8 Calcium 7.8 L Magnesium 1.3 L* Total Bilirubin 1.3 H AST 23 ALT 22 Alkaline Phosphatase 98 Troponin I High Sens 17.5 Total Protein 7.3 Albumin 3.4 L Hold Yellow Top Influenza Type A (PCR) NEGATIVE Influenza Type B (PCR) NEGATIVE RSV RNA Qual (PCR) NEGATIVE SARS-CoV-2 RNA (RT-PCR) NEGATIVE 07/29/24 07/29/24 07/29/24 01:25 02:47 07:06 MCV MCH MCHC RDW Plt Count MPV Immature Gran % (Auto) Neut % (Auto) Lymph % (Auto) [place] % (Auto) Eos % (Auto) Baso % (Auto) Lymph # (Auto) [place] # (Auto) Eos # (Auto) Baso # (Auto) Abs Immat Gran (auto) Absolute Neuts (auto) Absolute Nucleated RBC Nucleated RBC % (auto) PT INR APTT VBG pH VBG pCO2 VBG pO2 VBG HCO3 VBG O2 Saturation VBG Base Excess Anion Gap 14 Estim Creat Clear Calc 41.1 Estimated GFR 48 POC Glucose 182 H Random Glucose 223 H Lactic Acid Lactic Acid F/U @ 2Hr Calcium 8.6 D Magnesium 2.1 Total Bilirubin AST ALT Alkaline Phosphatase Troponin I High Sens Total Protein Albumin Hold Yellow Top See Note Influenza Type A (PCR) Influenza Type B (PCR) RSV RNA Qual (PCR) SARS-CoV-2 RNA (RT-PCR) 07/29/24 07/29/24 07:25 11:19 MCV MCH MCHC RDW Plt Count MPV Immature Gran % (Auto) Neut % (Auto) Lymph % (Auto) [place] % (Auto) Eos % (Auto) Baso % (Auto) Lymph # (Auto) [place] # (Auto) Eos # (Auto) Baso # (Auto) Abs Immat Gran (auto) Absolute Neuts (auto) Absolute Nucleated RBC Nucleated RBC % (auto) PT INR APTT VBG pH VBG pCO2 VBG pO2 VBG HCO3 VBG O2 Saturation VBG Base Excess Anion Gap Estim Creat Clear Calc Estimated GFR POC Glucose 205 H 260 H Random Glucose Lactic Acid Lactic Acid F/U @ 2Hr Calcium Magnesium Total Bilirubin AST ALT Alkaline Phosphatase Troponin I High Sens Total Protein Albumin Hold Yellow Top Influenza Type A (PCR) Influenza Type B (PCR) RSV RNA Qual (PCR) SARS-CoV-2 RNA (RT-PCR) Assessment and Plan (1) Hypomagnesemia: Status: Acute (2) Pneumonia: Status: Acute (3) Acute UTI: Status: Acute (4) Bacteremia: Status: Acute Plan Pt is a 78-year-old male with a PMH significant for?COPD on prn home O2, [id number] type 2 diabetes, HTN, peripheral artery disease, and memory deficit who presents to the ED with?cough and fever measured at home. Pt will be admitted to the hospital for treatment and further and evaluation of PILY and acute hypoxic respiratory failure in the setting COPD exacerbation with underlying pneumonia. Acute hypoxic respiratory failure due to COPD exacerbation and pneumonia Community-acquired Pneumonia IV ceftriaxone, IV Zyvox based on culture results Acute COPD exacerbation DuoNebs, Solu-Medrol, guaifenesin Titrate supplemental oxygen >92, wean as tolerated Monitor respiratory status Enterococcus bacteremia due to UTI Urine culture growing Enterococcus faecium resistant to ampicillin and Levaquin 1/2 blood cultures growing Enterococcus/Streptococcus species - likely urinary source; sensitivities pending with PILY, would avoid vancomycin will start Zyvox ID consult PILY Likely secondary to hypovolemia Received IV fluid, creatinine improving Normocytic anemia Appears chronic and at baseline H/H stable and above transfusion threshold Thrombocytopenia Appears chronic and at baseline Hypotension Patient initially hypotensive as low as 74/39 in the ED secondary to hypovolemia resolved with IVF acute Lactic acidosis resolved with IVF Hyponatremia due to hypovolemia Hypomagnesemia Resolved with replacement HTN Hold metoprolol due to hypotension PAD Continue aspirin, statin DVT Prophylaxis: Lovenox Patient requires ongoing inpatient stay for IV antibiotics and specialist evaluation. Quality Stroke Does the patient have a stroke diagnosis?: No VTE Prior VTE?: No VTE Risk Level:: Medical - moderate - high VTE Device Contraindication: Treatment Not Indicated VTE Drug Contraindication: N/A - Med Ordered
--- NOTE | 2024-07-29 13:17 | P.CNID_ITS ---
History of Present Illness Data of Consult Service Date: 07/29/24 Requesting physician: Charito Sanchez Primary Care Provider: Ondina Ferreira MD HPI Reason for consult: sepsis,tachycardia and tachypnea,enterococcus He presents with fever and altered mental status from home per his who I talked to. He has COPD and atrial fibrillation He is on oxygen now. Review of Systems 2 Review of Systems: Yes all other systems are reviewed and are negative PMFSH Family History Family history: reviewed and not pertinent Social History Social History Household Members: Spouse Housing: House Do you presently have visiting nurse or other home services: Yes ([employer]) Alcohol intake: never Patient Tobacco Use Status: Former Tobacco user Smoked in Last 30 Days: No Use of substances other than those prescribed or required for medical reasons: No Currently Displaying Signs/Symptoms of Drug Intoxication Withdrawal: No Have you been hit, kicked, punched, or otherwise hurt by someone within the past year? If so, by whom?: No Do you feel safe in your current relationship?: Yes Is there a partner from a previous relationship who is making you feel unsafe now?: No Are you made to feel afraid or neglected: No Advance Directives: Yes Advance Directives on File: Yes Advance Directives Date on File: 05/26/23 Do you have a plan to hurt others: No Plan Recently lost weight without trying: No Nutrition Risks: No Nutritional Risk Poor oral hygiene: No Meds Allergies Allergy/AdvReac Type Severity Reaction Status Date / Time egg Allergy Unknown Verified 07/28/24 17:35 minocycline Allergy Unknown Verified 07/28/24 21:26 Sulfa (Sulfonamide Allergy Unknown Verified 07/28/24 17:35 Antibiotics) Active Medications: Current Medications Acetaminophen (Acetaminophen 325 Mg Tablet) 650 mg PO Q6H PRN PRN Reason: Pain, Mild (Pain Scale 1-3), fever or headache Albuterol/Ipratropium (Albuterol/Iprat 2.5/0.5mg 3 Ml Ampul.Neb) 3 ml INHALE RQ4H WHILE AWAKE [facility] Last Admin: 07/29/24 11:32 Dose: 3 ml Aspirin (Aspirin Enteric Coated 81 Mg Tablet.) 81 mg PO DAILY [facility] Last Admin: 07/29/24 08:41 Dose: 81 mg Atorvastatin Calcium (Atorvastatin Calcium 80 Mg Tablet) 80 mg PO BEDTIME [facility] Last Admin: 07/29/24 00:03 Dose: 80 mg Calcium Carbonate (Calcium Carbonate 750 Mg Tab.Chew) 750 mg PO Q4H PRN PRN Reason: Heartburn Ferrous Sulfate (Ferrous Sulfate 324 Mg Tablet.Dr) 324 mg PO DAILY [facility] Last Admin: 07/29/24 08:41 Dose: 324 mg Glucose (Glucose Gel 15 Gm Gel..Gram.) 15 gm PO Q15M PRN; Protocol PRN Reason: per Hypoglycemia Standing Ord. Guaifenesin/Dextromethorphan (Guaifenesin Dm 200/20/10 Ml 10 Ml Syrup) 10 ml PO Q6H PRN PRN Reason: Cough Heparin Sodium (Porcine) (Heparin Sodium,Porcine 5,000 Unit/Ml Vial) 5,000 unit SUBCUT Q12H [facility] Last Admin: 07/29/24 10:21 Dose: Not Given Dextrose (D10) 250 mls @ 750 mls/hr IV Q15M PRN; Protocol PRN Reason: per Hypoglycemia Standing Ord. Ceftriaxone Sodium 1 gm/ (Sodium Chloride) 50 mls @ 100 mls/hr IV Q24H [facility] Linezolid (Zyvox/D5w) 600 mg in 300 mls @ 300 mls/hr IV Q12H [facility] Insulin Human Lispro (Insulin Lispro 100 Unit/Ml 3 Ml Vial) 0.1 - 10 unit SUBCUT QIDACHS [facility]; Protocol Last Admin: 07/29/24 11:46 Dose: 6 unit Loratadine (Loratadine 10 Mg Tablet) 10 mg PO DAILY [facility] Last Admin: 07/29/24 08:41 Dose: 10 mg Magnesium Hydroxide (Milk Of Magnesia 30 Ml Oral.Susp) 30 ml PO DAILY PRN PRN Reason: Constipation Melatonin (Melatonin 3 Mg Tablet) 6 mg PO BEDTIME PRN PRN Reason: Insomnia Methylprednisolone Sodium Succinate (Methylprednisolone Sod Succ 40 Mg/Ml Vial) 40 mg IVPUSH Q12H [facility] Last Admin: 07/29/24 08:41 Dose: 40 mg Ondansetron HCl (Ondansetron Hcl 4 Mg/2 Ml Vial) 4 mg IVPUSH Q8H PRN PRN Reason: Nausea and Vomiting Sodium Chloride (0.9 % Sodium Chloride Flush 3 Ml Syringe) 3 ml IVFLUSH QSHIFT [facility] Last Admin: 07/29/24 08:41 Dose: 3 ml Home Medications ?Medication ?Instructions ?Recorded ?Confirmed ?Last Taken ?Type albuterol sulfate 90 mcg/actuation 2 puff inhalation Q4-6H PRN 05/26/23 07/28/24 07/28/24 History aerosol inhaler Shortness Of Breath ammonium lactate 12 % topical cream 1 appl topical BID PRN Dry Skin 05/26/23 07/28/24 07/28/24 History aspirin 81 mg tablet,delayed 81 mg PO DAILY 05/26/23 07/28/24 07/28/24 History release atorvastatin 80 mg tablet 80 mg PO BEDTIME 05/26/23 07/28/24 07/28/24 History cetirizine 10 mg tablet (Zyrtec) 10 mg PO DAILY 05/26/23 07/28/24 07/28/24 History ferrous sulfate 325 mg (65 mg 325 mg PO DAILY 05/26/23 07/28/24 07/28/24 History iron) tablet metformin 500 mg tablet 500 mg PO BID 05/26/23 07/28/24 07/28/24 History metoprolol succinate 50 mg 50 mg PO DAILY 05/26/23 07/28/24 07/28/24 History tablet,extended release 24 hr umeclidinium 62.5 mcg-vilanterol 1 ea inhalation DAILY 07/28/24 07/28/24 07/28/24 History 25 mcg/actuation powdr for inhalation (Anoro Ellipta) Physical Exam 2 Vital Signs: Vital Signs: Last Vital Signs Temp 98.0 F 07/29/24 07:39 Pulse 85 07/29/24 11:34 Resp 18 07/29/24 11:34 BP 151/78 H 07/29/24 09:50 Pulse Ox 96 07/29/24 09:50 O2 Del Method Nasal Cannula 07/29/24 07:39 O2 Flow Rate 2 07/29/24 07:39 Oxygen Flow Rate 3 07/28/24 17:32 BMI result Body Mass Index 26.6 Const: General: cooperative HEENT: Head: Yes normal to inspection Face and sinus: Yes normal facial exam Mouth: Normal oral and palatal mucosa present Teeth and gingiva: d entition normal Eyes: General: appearance normal, both eyes and all related structures P upils: Equal, round and reactive pupils present Resp: Effort & Inspection: normal respiratory effort Cardio: Rate: regular rate Rhythm: regular rhythm GI: Palpation (GI): Soft to palpation and nontender : General: Yes no CVA tenderness Back/Spine/Pelvis: Back: no CVA tenderness Skin: General skin exam: no rashes or lesions noted Neuro: General: moves all extremities Cranial nerves: Yes Equal, round and reactive pupils present Extrem: General: Yes normal to inspection Psych: Other: mild confusion Appearance: grossly normal Results Labs 07/28/24 17:56 07/29/24 07:06 Labs: Short CBC 07/28/24 Range/Units 17:56 WBC 7.2 (4.8-10.8) X10*3/uL Hgb 11.8 L (14.0-18.0) g/dl Hct 34.2 L (42.0-52.0) % Plt Count 105 L (160-400) X10*3/uL BMP 07/28/24 07/29/24 17:56 07:06 Sodium 129 L 134 L Potassium 4.0 4.5 Chloride 102 107 Carbon Dioxide 17 L 18 L BUN 27 H 23 H Creatinine 1.82 H 1.43 H Calcium 7.8 L 8.6 D Liver Function 07/28/24 Range/Units 17:56 Total Bilirubin 1.3 H (0.0-1.0) mg/dL AST 23 (5-37) U/L ALT 22 (0-40) U/L Alkaline Phosphatase 98 (39-117) U/L Albumin 3.4 L (3.5-5.0) g/dL Assessment and Plan (1) Bacteremia: Status: Acute (2) Pneumonia: Status: Acute Plan He has enterococcus faecium urine and probable enterococcus in blood. Pneumonia may be related to bacteremia ,but possible strep pneumonia as well. Would agree with Ceftriaxone possible strep pneumonia lung and check urinary antigen for strep pneumonia. Would agree with linezolid cover enterococcus. Check echo if not done evaluate endocarditis. Evaluate CT abdomen and pelvis evaluate for any obstruction in tract and involve Urology if seen. Duration of antibiotics fourteen days likely. Recheck blood culture eval clearing.
[2024-07-29] MEDS: Linezolid/D5W 600 MG/300 ML PIGGYBACK 300 MG IV (13:58)
[2024-07-29 16:07] LABS: Glucose, Whole Blood 367 mg/dL (60-115)
[2024-07-29] MEDS: Nystatin Powder 15 GM BOTTLE 1 APPL TOPICAL (16:44)
[2024-07-29] MEDS: cefTRIAXone sodium 1 GM in 0.9 % Sodium Chloride 50 ML IV (16:44)
[2024-07-29 20:13] LABS: Glucose, Whole Blood 227 mg/dL (60-115)
[2024-07-30] MEDS: Linezolid/D5W 600 MG/300 ML PIGGYBACK 300 MG IV ×2 (00:35→11:46)
[2024-07-30] MEDS: Heparin Sodium,Porcine 5,000 UNIT/ML VIAL 5000 UNIT SUBCUT (00:35)
[2024-07-30 03:28] VITALS: BP 136/63; PULSE 80; RESP 18; TEMP 36.6; O2SAT 93
[2024-07-30 07:20] VITALS: BP 149/69; PULSE 102; RESP 20; TEMP 36.2; O2SAT 94
[2024-07-30 07:26] VITALS: PULSE 102; RESP 20; O2SAT 93
[2024-07-30] MEDS: Albuterol/Iprat 2.5/0.5MG 3 ML AMPUL.NEB INHALE (07:26)
[2024-07-30 07:46] LABS: Glucose, Whole Blood 198 mg/dL (60-115)
[2024-07-30] MEDS: Aspirin Enteric Coated 81 MG TABLET.DR PO (07:56)
[2024-07-30] MEDS: methylPREDNISolone Sod Succ 40 MG/ML VIAL IVPUSH (07:56)
[2024-07-30] MEDS: Nystatin Powder 15 GM BOTTLE 1 APPL TOPICAL (07:56)
[2024-07-30] MEDS: Loratadine 10 MG TABLET PO (07:56)
[2024-07-30] MEDS: 0.9 % Sodium Chloride Flush 3 ML SYRINGE IVFLUSH (07:56)
[2024-07-30] MEDS: Ferrous Sulfate 324 MG TABLET.DR PO (07:56)
[2024-07-30] MEDS: Insulin Lispro 100 UNIT/ML 3 ML VIAL SUBCUT ×2 (07:56→11:47)
[2024-07-30 08:09] LABS: Anion Gap 15 (12-20); Blood Urea Nitrogen 26 mg/dL (9-16); Calcium 8.3 mg/dL (8.4-10.2); Carbon Dioxide 18 mmol/L (22-29); Chloride 107 mmol/L (96-108); Creatinine Clr Calc Pharmacy 41.1; Estimated Glomerular Filt Rate 48; Glucose Random 209 mg/dL (60-115); Potassium 4.1 mmol/L (3.3-5.1); Sodium 136 mmol/L (135-145)
--- NOTE | 2024-07-30 11:06 | P.DS_ITS ---
DS: Providers Provider Date of Service: 07/30/24 Date of admission: 07/28/24 23:01 Date of discharge: 07/30/24 Primary care physician: Ondina Ferreira MD Consults: 07/29/24 12:44 Consult to Infectious Diseases Routine Consulting Provider: [facility] Reason for consultation: enterococcus uti/baceteremia resistent to ampicillan; pneumonia Has provider been notified: No Attending physician on discharge: Aleksey Candelaria Discharging clinician: Charito Sanchez DS: Diagnosis Discharge Diagnosis (1) Bacteremia: Status: Acute (2) Pneumonia: Status: Acute (3) Acute UTI: Status: Acute DS: Summary Hospital Course Hospital Course: From H&P on the day of admission Pt is a 78-year-old male with a PMH significant for?COPD on prn home O2, [id number] type 2 diabetes, HTN, peripheral artery disease, and memory deficit who presents to the ED with?cough and fever measured at home. Patient is alert and oriented x2, but not to time or fully to situation. HPI thus obtained from chart and provider review. Patient was previously at the ED yesterday where he was seen and evaluated and diagnosed with a UTI and pneumonia. ED provider wanted to admit patient to the hospital, however patient has /HCP refused medical admission as she felt she and her family would be able to care for him at home. was also contacted earlier today when 1/2 of patient's blood cultures came back positive for Gram- positive cocci in pairs and short chains. reports patient has been experiencing significant cough and fevers not controlled with Tylenol at home. Patient himself states he feels ?a little tired? but otherwise denies any acute medical complaints. In the ED pt was afebrile, but tachypneic up to 25, hypotensive as low as 74/39, and noted to be desatting into the 80s on RA during interview and exam. Labs were significant for hyponatremia 129, BUN 27, creatinine 1.82 (elevated from 1.28 yesterday), lactic acid 2.1 with repeat 1.8, magnesium 1.3, and bilirubin 1.3. No leukocytosis. Stable normocytic anemia 11.8/34.2. Troponin WNL at 17.5. Tested negative for flu, RSV, COVID. CXR yesterday showed left lower lobe consolidation. 1/2 blood culture positive for Gram-positive cocci in pairs and short chains. UA still preliminary showing Enterococcus/Streptococcus 50- 100,000. EKG demonstrated normal sinus rhythm with T-wave inversion in septal leads but no evidence of ST elevations or depressions. Pt was treated with IVF, Mag sulfate, DuoNebs, Solu-Medrol, azithromycin, and ceftriaxone. Pt will be admitted to the hospital for treatment and further evaluation of PILY and acute hypoxic respiratory failure in the setting COPD exacerbation with underlying pneumonia. Hospital course: Acute hypoxic respiratory failure due to COPD exacerbation and pneumonia. For community acquired pneumonia patient was initially treated with IV ceftriaxone and IV azithromycin. For COPD he was treated with Solu-Medrol as well as breathing treatments. He uses as needed oxygen at baseline but was able to be weaned down to room air. Blood cultures and urine cultures both grew Enterococcus faecium which was resistant to ampicillin and levofloxacin therefore he was transitioned to Zyvox. Repeat blood cultures are negative at 24 hours. Discussed with ID, plan to discharge with cefuroxime and Zyvox orally for 14 days. No need echocardiogram as known source of infection and no persistently positive blood cultures. aware of the blood cultures are only negative at 24 hours and there is possibility they could turn positive. She is aware and understands he may need echocardiogram or further treatment if repeat blood cultures returned positive. PILY due to hypovolemia and hypotension, improved. Hypo tension resolved. Acute lactic acidosis resolved. Hyponatremia also due to hypovolemia resolved with IV fluid. Hypomagnesemia improved with replacement. Physical therapy recommended short- term rehab. Discussed with at the bedside, per patient has services at home and declines short-term rehab. She will contact the [facility] to resume home services. Due to patient's underlying dementia prefers to take the patient home and to return him to an environment that he has used to to prevent delirium. She is in agreement with above plan. Time Attestation Discharge Coordination Time (in mins): 40 Quality: Safe Use of Opioids Does Pt have an Active Cancer Diagnosis on the Problem List?: No Quality: Stroke Does the patient have a stroke diagnosis?: No Physical Exam Vital Signs: Vital Signs: Last Vital Signs Temp 97.2 F 07/30/24 07:20 Pulse 102 H 07/30/24 07:26 Resp 20 07/30/24 07:26 BP 149/69 H 07/30/24 07:20 Pulse Ox 94 07/30/24 07:20 O2 Del Method Nasal Cannula 07/30/24 07:20 O2 Flow Rate 2 07/30/24 07:20 Oxygen Flow Rate 3 07/28/24 17:32 BMI result Body Mass Index 26.6 Const: General: comfortable, alert, awake and confusion Nutritional Appearance: average body habitus Orientation/consciousness: oriented to person and confusion Cardio: Rate: regular rate GI: Inspection: No distended Palpation (GI): Soft to palpation and nontender Neuro: General: oriented to person, moves all extremities, CN's II-XI intact bilaterally and confusion Extrem: General: Yes no pedal edema DS: Data Data Completed and Pending Labs on day of discharge: Laboratory Results - last 24 hr 07/29/24 07/29/24 07/29/24 11:19 16:02 20:08 Hold Purple Top Sodium Potassium Chloride Carbon Dioxide Anion Gap BUN Creatinine Estim Creat Clear Calc Estimated GFR POC Glucose 260 H 367 H* 227 H Random Glucose Calcium 07/29/24 07/30/24 07/30/24 Unknown 07:05 07:23 Hold Purple Top SEE NOTE Sodium 136 Potassium 4.1 Chloride 107 Carbon Dioxide 18 L Anion Gap 15 BUN 26 H Creatinine 1.43 H Estim Creat Clear Calc 41.1 Estimated GFR 48 POC Glucose 198 H Random Glucose 209 H Calcium 8.3 L Preliminary micro results at discharge 07/29/24 01:25 Blood Culture - Preliminary Blood - Venous No growth after 24 hours. 07/29/24 01:25 Blood Culture - Preliminary Blood - Venous No growth after 24 hours. Discharge Plan Discharge Anticipated Discharge Date/Time: 07/30/24 12:09 Patient Disposition: Home, Self-Care Discharge Diagnosis: UTI Bacteremia Pneumonia COPD exacerbation Hyponatremia PILY Referrals: Ondina Ferreira MD [Primary Care Provider] - 1 Week Discharge Medications: New prednisone 20 mg Tablet 40 mg PO DAILY 4 Days Qty: 8 0RF linezolid [Zyvox] 600 mg tablet 600 mg PO Q12H 14 Days Qty: 28 0RF Continued Anoro Ellipta 62.5-25 mcg/actuation blister with device 1 ea INHALATION DAILY cefuroxime axetil 250 mg tablet 250 mg PO BID 14 Days Qty: 28 0RF metformin 500 mg tablet 500 mg PO BID atorvastatin 80 mg tablet 80 mg PO BEDTIME metoprolol succinate 50 mg tablet extended release 24 hr 50 mg PO DAILY ammonium lactate 12 % cream 1 appl topical BID PRN (Reason: Dry Skin) albuterol sulfate 90 mcg/actuation HFA aerosol inhaler 2 puff INHALATION Q4-6H PRN (Reason: Shortness Of Breath) cetirizine [Zyrtec] 10 mg Tablet 10 mg PO DAILY aspirin 81 mg Tablet,Delayed Release (Dr/Ec) 81 mg PO DAILY ferrous sulfate 325 mg (65 mg iron) Tablet 325 mg PO DAILY Discharge Orders: Discharge Order (Routine); Ordered 07/30/24 Ordered By: Charito Sanchez Activity on Discharge: As tolerated Stand Alone Forms: Patient Portal Discharge page Print Language: [place]uran Care Plan Goals: See below Health Concerns: Community-acquired pneumonia Bacteremia due to UTI Hyponatremia-resolved PILY-resolved Hypotension-resolved Low magnesium levels-resolved Plan of Treatment: For UTI/bacteremia/pneumonia-complete 14 day course of Zyvox and ceftin Complete short course of oral prednisone for COPD Recommend to reinstate home services for physical therapy and [facility] through [place] No changes made to baseline medications Call to schedule follow-up appointment with PCP Assessment: See discharge summary Discharge Date/Time: 07/30/24 15:04
--- NOTE | 2024-07-30 11:16 | MHC.CM.PN ---
IMM 07/30/24 DX PILY [facility] 30 hours/week. Patient uses walker for unsteady gait. PT recommendation STR. PT/family preference is Home with services. Patient will discharge to home with resumption of [place] home services, PT and [facility]. Patient is discharged today to home via BLS. Transport is booked for 2:30pm pick up operator.
[2024-07-30 11:19] LABS: Glucose, Whole Blood 216 mg/dL (60-115)
[2024-08-02 08:33] LABS: Strep Pneumo Ag urine Not Detected (Not Detected)
== END 2024-07-30 15:04 | disposition home or self-care (01) | DRG 193 ==
LOC: HO.ED 20:53 → HO.EDOVER 23:09 → HO.S3 07-29 00:04
PROVIDERS: Physician Assistant Medical; Admitting Provider Student in an Organized Health Care Education/Training Program; Emergency Provider Internal Medicine; PCP Internal Medicine; Visit Provider Physician Assistant Medical
DX: J18.9 Pneumonia, unspecified organism (principal); J96.01 Acute respiratory failure with hypoxia; J44.0 Chronic obstructive pulmonary disease with (acute) lower respiratory infection; J44.1 Chronic obstructive pulmonary disease with (acute) exacerbation; N39.0 Urinary tract infection, site not specified; N17.9 Acute kidney failure, unspecified; Z16.11 Resistance to penicillins; Z16.23 Resistance to quinolones and fluoroquinolones; R78.81 Bacteremia; E83.42 Hypomagnesemia; B95.2 Enterococcus as the cause of diseases classified elsewhere; E86.1 Hypovolemia; F03.90 Unspecified dementia, unspecified severity, without behavioral disturbance, psychotic disturbance, mood disturbance, and anxiety; D64.9 Anemia, unspecified; E11.51 Type 2 diabetes mellitus with diabetic peripheral angiopathy without gangrene; I95.9 Hypotension, unspecified; Z20.822 Contact with and (suspected) exposure to COVID-19; Z99.81 Dependence on supplemental oxygen; Z87.891 Personal history of nicotine dependence; Z79.82 Long term (current) use of aspirin; Z79.84 Long term (current) use of oral hypoglycemic drugs; Z79.899 Other long term (current) drug therapy
CPT/HCPCS: 0241U; 36415; 74176; 80048; 80053; 82803; 82947; 83605; 83735; 84484; 85025; 85610; 85730; 87040; 87899; 93005; 94640; 97162; 99285; J0295; J0456; J0696; J1644; J2020; J2919; J3475; J7120

== ENCOUNTER → 2024-07-28 23:01 | Outpatient (BNV) | payer OTHER, MEDICARE, SELFPAY | PROVIDERS: Admitting Provider Student in an Organized Health Care Education/Training Program; Emergency Provider Internal Medicine; PCP Internal Medicine; Visit Provider Physician Assistant Medical | DX: R78.81 Bacteremia (principal); J18.9 Pneumonia, unspecified organism; N39.0 Urinary tract infection, site not specified | CPT/HCPCS: 99223; 99232; 99239 ==

== ENCOUNTER → 2024-07-28 23:01 | Outpatient (BNV) | payer OTHER, MEDICARE, SELFPAY | PROVIDERS: Admitting Provider Student in an Organized Health Care Education/Training Program; Emergency Provider Internal Medicine; PCP Internal Medicine; Visit Provider Internal Medicine | DX: R78.81 Bacteremia (principal); J18.9 Pneumonia, unspecified organism | CPT/HCPCS: 99222 ==

== ENCOUNTER 2024-10-17 14:45 | Emergency (ER) | payer OTHER, MEDICARE, SELFPAY ==
--- NOTE | ~2024-10-17 | XR_ITS ---
EXAMINATION: XR CHEST CLINICAL INFORMATION: Recent fall; hypoxia and right lower lobe rales. COMPARISON: Chest radiographs dated 07/27/2024. TECHNIQUE: AP and lateral views of the chest were obtained. FINDINGS: The heart size is at least top normal. There is pulmonary congestion, without overt pulmonary edema. Lung volumes are diminished. There is mild to moderate elevation of the right hemidiaphragm. Mild left base atelectasis is suspected. No pleural effusion or pneumothorax is seen. There is no acute osseous abnormality. XR/XR chest 2V IMPRESSION: 1. Mild left base atelectasis is suspected. 2. There is pulmonary vascular congestion, without overt pulmonary edema. 3. Lung volumes are diminished. Electronically signed by: Ankit Westbrook MD 10/17/2024 03:35 PM [facility]
[2024-10-17 14:51] VITALS: BP 120/84; PULSE 85; O2SAT 94
--- NOTE | 2024-10-17 14:54 | ED.HEATRA ---
HPI - Head Injury General Chief complaint: Fall Stated complaint: FALL BACK,HIT HEAD,-THIN,-LOC,REF CCOLLAR PER EMS Time Seen by Provider: 10/17/24 14:47 Source: patient Limitations: no limitations History of Present Illness ED Provider: Jacinta Mejias NP HPI Narrative: Patient is a 79-year-old male who presents emergency department via EMS for evaluation. Patient was at home, his home health aide was present in the house. States that he was walking to the back through when he had a slip and fall on the floor striking his head. He states that the floor was not wet, he is not certain what he may have slipped on. He does have soft fuzzy like socks so there is trends on the bottom of the socks they appear to be a bit worn down. He denies loss of consciousness. His home health aide was able to get him to a sitting position. He states that he had a posterior headache for about 10 minutes but this has since resolved. He denies any active bleeding, use of anticoagulants or known coagulation disorders. He denies any chest pain, shortness of breath, numbness or tingling of the extremities, neck pain or neck stiffness, vision changes. He denies any precipitating symptoms prior to the fall. He arrived with O2 saturation 90%, by report given to EMS it is not uncommon for him to have O2 saturation in the lower 90s due to his COPD. During my examination his O2 saturation has noted to drop as low as 86% on room air. He does admit to a history of COPD, states that his cough has been baseline without increase in frequency and is nonproductive. Related Data Home Medications ?Medication ?Instructions ?Recorded ?Confirmed albuterol sulfate 90 mcg/actuation 2 puff inhalation Q4-6H PRN 05/26/23 07/28/24 aerosol inhaler Shortness Of Breath ammonium lactate 12 % topical cream 1 appl topical BID PRN Dry Skin 05/26/23 07/28/24 aspirin 81 mg tablet,delayed 81 mg PO DAILY 05/26/23 07/28/24 release atorvastatin 80 mg tablet 80 mg PO BEDTIME 05/26/23 07/28/24 cetirizine 10 mg tablet (Zyrtec) 10 mg PO DAILY 05/26/23 07/28/24 ferrous sulfate 325 mg (65 mg 325 mg PO DAILY 05/26/23 07/28/24 iron) tablet metformin 500 mg tablet 500 mg PO BID 05/26/23 07/28/24 metoprolol succinate 50 mg 50 mg PO DAILY 05/26/23 07/28/24 tablet,extended release 24 hr umeclidinium 62.5 mcg-vilanterol 1 ea inhalation DAILY 07/28/24 07/28/24 25 mcg/actuation powdr for inhalation (Anoro Ellipta) Previous Rx's ?Medication ?Instructions ?Recorded cefuroxime axetil 250 mg tablet 250 mg PO BID 14 days #28 tabs 07/30/24 linezolid 600 mg tablet (Zyvox) 600 mg PO Q12H 14 days #28 tabs 07/30/24 prednisone 20 mg tablet 40 mg (2 x 20 mg) PO DAILY 4 days 07/30/24 #8 tabs Allergies Allergy/AdvReac Type Severity Reaction Status Date / Time egg Allergy Unknown Verified 10/17/24 15:06 minocycline Allergy Unknown Verified 10/17/24 15:06 Sulfa (Sulfonamide Allergy Unknown Verified 10/17/24 15:06 Antibiotics) Review of Systems Review of Systems: Yes all other systems are reviewed and are negative [facility] Past Medical History Attestation statement: The following information was validated with the patient. Source: old records reviewed Social History Social History Household Members: Spouse Housing: House Do you presently have visiting nurse or other home services: Yes ([employer]) Alcohol intake: never Patient Tobacco Use Status: Former Tobacco user Smoked in Last 30 Days: No Advance Directives: Yes Advance Directives on File: Yes Advance Directives Date on File: 05/26/23 Do you have a plan to hurt others: No Plan Physical Exam Vital Signs: Vital Signs: Last Vital Signs Temp 97.3 F 10/17/24 17:32 Pulse 77 10/17/24 17:32 Resp 18 10/17/24 17:32 BP 145/60 H 10/17/24 17:32 Pulse Ox 91 L 10/17/24 17:32 O2 Del Method Room Air 10/17/24 17:32 BMI result Body Mass Index 25.8 Appearance: Alert.?Oriented to person, place and time. No acute distress.?Normal affect. Head: Right occipital parietal hematoma. No active bleeding. Eyes: Pupils equal, round and reactive to light. EOMI. Conjunctiva and sclera normal? No raccoon eyes noted ENT: No septal hematoma, nares patent bilaterally. External auditory canal normal tympanic membrane pearly manning and intact bilaterally. Dentition normal, no fractured teeth. No lesions or lacerations of oropharynx. Uvula midline. Moist mucous membranes. Negative osuna sign. Neck: Normal inspection.? Neck supple.??No palpable tenderness, step-off, deformities. CVS: Heart sounds normal. Normal heart rate and rhythm.? Pulses normal.?? Respiratory: No respiratory distress.? Hypoxia down to 86% with normal Plath on monitor, placed on 2 L via nasal cannula. Lung sounds clear accept rales to the right lower lobe Abdomen: Soft and non-tender. Normoactive bowel sounds. ?? Skin: Skin warm and dry.? Normal skin color.? Extremities: No lower extremity edema.? Neuro: Moves all extremities spontaneously. Sensation intact bilaterally. CN II-XII intact. No focal neuro deficits. Course Reevaluation(s) Reevaluation #1: Patient's is present at bedside. They are electing to leave against medical advice at this time. Patient's states, we only wanted an x-ray to make sure there was no fracture. I did discuss with patient and his that the concern with a head injury in the presence of his hematomas whether there is any ICH, SDH or skull fracture, unfortunately ICH, SDH would not be appreciated on XR imaging and was advised to have a CT scan of the head/brain for further evaluation. They however have declined to stay for such imaging. Advised they are leaving against medical advice and we discussed the potential life-threatening possibilities if this is undetected. They verbalized understanding. Patient is alert and oriented x3. Additionally regards to his hypoxia, patient's feels confident that his breathing appears to be fine and at times his oxygen can be low. I did discuss my concerns about O2 saturation of 86% on room air, would not feel confident in saying this is strictly COPD. Please well discussed the potential life-threatening possibilities of hypoxia and undifferentiated causes, they continue to wish to leave against medical advice. states that he has oxygen available to him at home that he may use as needed. Time: 17:11 Medical Decision Making Medical Decision Making MDM Narrative: Patient is a 79-year-old male with past medical history of hypertension, diabetes, COPD, DM, PID, memory deficit, who presents emergency department for evaluation after a reported mechanical slip and fall. Floor was not wet, he does have on soft fuzzy like socks with a warned downtrend it is possible that perhaps the slip was due to the socks. On evaluation he does have notable room air hypoxia down to 86% with a normal Plath on the monitor, on auscultation his lung sounds he does have rales to the right lower lobe. Admits to a history of COPD and reportedly O2 saturation is not uncommonly in the low 90s, however 86% is lower than I would anticipate for and otherwise baseline COPD. Will obtain basic labs in addition to CXR to exclude acute pathology/alternative cause for hypoxia. Obtaining CT head and cervical spine to exclude ICH, SDH, fracture, subluxation. Hematoma to the right occipital parietal scalp is intact no active bleeding. Differential Diagnosis Differential Diagnoses: The differential diagnosis associated with the presentation includes (See narrative above) Admission/Observation Consideration of admission/observation: Escalation of care including admission/observation considered (See narrative above) Lab Data MDM Lab Attestation statement: I reviewed the patient's lab results. Labs: Lab Results 10/17/24 Range/Units 16:22 Influenza Type A (PCR) NEGATIVE (Negative) Influenza Type B (PCR) NEGATIVE (Negative) RSV RNA Qual (PCR) NEGATIVE (Negative) SARS-CoV-2 RNA (RT-PCR) NEGATIVE (Negative) Independent Interpretation I performed an independent interpretation of an: Plain X-Ray (No consolidation or infiltrate) Radiology Impression Discussion of test interpretation with radiology: I have reviewed the radiologist's reading. Radiologist Impression: XR/XR chest 2V IMPRESSION: 1. Mild left base atelectasis is suspected. 2. There is pulmonary vascular congestion, without overt pulmonary edema. 3. Lung volumes are diminished. Independent Historian Clinical information obtained from an independent historian. History obtained from or confirmed by: EMS External Record Review External record reviewed: Outpatient record Chronic Conditions Patient?s care impacted by: Other (See narrative above) Discharge Plan Discharge Clinical Impression: Acute head injury, Hypoxia Patient Disposition: Left Against Medical Advice Additional Instructions: It was recommended that you remain in the emergency department for further testing including blood work, CT imaging of the head. Presenting to emergency department for evaluation after a fall with head injury. You have a hematoma to the back of your scalp. We can not exclude any bleeding into the brain without having imaging available, the presence of this ultimately result in severe life-threatening illness and even if not detected. Additionally, your oxygen saturation was quite low during your evaluation, down to 86%. Although you do have a history of COPD, the exact cause of this low have an oxygen saturation today is unclear. Lack of adequate oxygenation can also result in life-threatening illness. You are leaving against medical advice at this time. Please return to emergency department with any new or worsening symptoms or concerns. Prescriptions: No Action Anoro Ellipta 62.5-25 mcg/actuation blister with device 1 ea INHALATION DAILY prednisone 20 mg Tablet 40 mg PO DAILY 4 Days Qty: 8 0RF linezolid [Zyvox] 600 mg tablet 600 mg PO Q12H 14 Days Qty: 28 0RF cefuroxime axetil 250 mg tablet 250 mg PO BID 14 Days Qty: 28 0RF metformin 500 mg tablet 500 mg PO BID atorvastatin 80 mg tablet 80 mg PO BEDTIME metoprolol succinate 50 mg tablet extended release 24 hr 50 mg PO DAILY ammonium lactate 12 % cream 1 appl topical BID PRN (Reason: Dry Skin) albuterol sulfate 90 mcg/actuation HFA aerosol inhaler 2 puff INHALATION Q4-6H PRN (Reason: Shortness Of Breath) cetirizine [Zyrtec] 10 mg Tablet 10 mg PO DAILY aspirin 81 mg Tablet,Delayed Release (Dr/Ec) 81 mg PO DAILY ferrous sulfate 325 mg (65 mg iron) Tablet 325 mg PO DAILY Referrals: Ondina Ferreira MD [Primary Care Provider] - Stand Alone Forms: Against Medical Advice Interventions: ED Discharge Assessment Last Done: 10/17/24 17:32 Discharge Date/Time: 10/17/24 17:34 Print Language: Greenlandic
[2024-10-17 15:06] VITALS: BP 138/56; PULSE 83; RESP 18; TEMP 36.4; O2SAT 90; BMI 25.8
--- OUTSIDE RECORDS SUMMARY | 2024-10-17 15:24 | XMS_ITS ---
Author Organization [facility] Address [address] [place] [address] Care Team Providers Care Identity Management Developer Name Role Phone Ondina Ferreira Primary Care Provider Jerome Morfin Unavailable [phone] REASON FOR VISIT Reschedule Encounters Encounter Location Date Provider Diagnosis [address] [address] 10/10/2024 Jerome Nava Plan Of Treatment Next Appt Details Provider Name:Jerome Nava , 01/16/2025 09:30:00 AM, [address] [place], [address], Progress Notes * Gamal GOMEZ MDOB:[birth year] (79 yo M)Acc No.[id number]:10/10/2024 Patient:?Gamal GOMEZ :1945???Age:79 Y???Sex:Male Address:[address] [place] [address], [place], [address] * true * Date:? Generated for Printi ng/Faeliazarg/eTransmitting on:?10/17/2024 03:24 PM EST
--- OUTSIDE RECORDS SUMMARY | 2024-10-17 15:24 | XMS_ITS ---
Author Organization [facility] Address [address] [place] [address] Care Team Providers Care Programmer Numerical Control Name Role Phone Ondina Ferreira Primary Care Provider Jerome Morfin Unavailable [phone] Encounters Encounter Location Date Provider Diagnosis [address] [address] 10/17/2024 Jerome Nava Plan Of Treatment Next Appt Details Provider Name:Jerome Nava , 01/16/2025 09:30:00 AM, [address] [place], [address], Progress Notes * Gamal GOMEZ MDOB:[birth year] (79 yo M)Acc No.[id number]:10/17/2024 Progress Note Patient:?Gamal GOMEZ Provider:?Jerome Nava DPM :1945???Age:79 Y???Sex:Male Fady e:10/17/2024 Address:[address] [place], [place] [id number] Pcp:Ondina Ferreira Subjective: * Chief Complaints: * ??? * Medical History:? Objective: * Vitals:? Assessment: Plan: * Treatment: * Images: * The named appointment provid er may or may not be the originator of this progress note, and it is not deemed complete until electronically signed by the appointment provider. Sign off status: Pending * Provider:?Jerome Nava DPM Date:?2023 Generated for Segun johansen/Jamil/Yu on:?10/17/2024 03:24 PM EST
--- OUTSIDE RECORDS SUMMARY | 2024-10-17 15:24 | XMS_ITS ---
Author Organization [facility] Address [address] [facility] [place] [address] Care Team Providers Care Congressional Assistant Name Role Phone Ondina Ferreira Primary Care Provider Jerome Morfin Unavailable [phone] Allergies Allergen (clinical drug ingredient) Drug/Non Drug Allergy documented on EMR Reaction Allergy Type Onset Date Status sulfamethoxazole / trimethoprim Bactrim Unknown Drug Allergy Active REASON FOR VISIT At Risk Footcare Medications Medication SIG (Take, Route, Frequency, Duration) Notes Start Date End Date Status metFORMIN HCl 1000 MG Orally Twice a day Active Metoprolol Tartrate 50 MG Orally Active ZyrTEC Active Extra Depth Orthopedic Shoes (1 Pair) with Customized Heat Molded Multidensity Innersoles (3 Pair) as directed Dx: NIDDM/Polyneuropathy (E11.42), Hammertoe Foot Deformity (M20.41,M20.42), Preulcerative Skin Lesion(s) (L85.1 12/21/2023 Active Omeprazole Not-Takin g Lisinopril Not-Takin g Anoro Ellipta Active Lovastatin 40 MG Orally Not -Taking Aspirin 325 MG Orally Activ e Atorvastatin Calcium 25 1 tablet Orally Once a day Active Nitroglycerin Not-Ta mira Clopidogrel Bisulfate Not-Taking Social History Tobacco Use: Social History Observation Description Date Details (start date - stop date) Never Smoker NA - NA Tobacco Use/Smoking Question Answer Notes Are you a: nonsmoker Additional Findings: Tobacco Non-User Current no n-smoker Tobacco use other than smoking: Question Answer Notes Are you an other tobacco user? No Vital Signs Height 5 ft 7 in in 06/20/2024 Weight 165 lbs 06/20/2024 BMI 25.84 kg/m2 06/20/2024 Blood pressure systolic 120 mm Hg 06/20/20 24 Blood pressure diastolic 60 mm Hg 024 Procedures Procedure Date Ordered Date Performed Result Body Sit e 45091-NZROHVN NAIL, 6 OR MORE 06/20/2024 N/A 39490-BRJI SKIN LESIONS, OVER 4 06/20/2024 N/A Encounters Encounter Location Date Provider Diagnosis [facility] [address] [address] 06/20/2024 Jerome Nava Type 2 diabetes mellitus with diabetic polyneuropathy E11.42 and Tinea unguium B35.1 Assessments Encounter Date Diagnosis (ICD Code) Assessment Notes Treatment Notes Treatment Clinical Notes Section Notes 06/20/2024 Type 2 diabetes mellitus with diabetic polyneuropathy (ICD-10 - E11.42) 06/20/2024 Tinea unguium (ICD-10 - B35.1) Plan Of Treatment Pending Test Test Name Order Date 69747-WXNOTYS NAIL, 6 OR MORE 06/20/2024 55389-PFIN SKIN LESIONS, OVER 4 06/20/20 24 Next Appt Details Follow Up: prn, Reason: Provider Name:Jerome Nava , 01/16/2025 09:30:00 AM, [address] [place] [address], [phone], Procedure Notes * Category Sub-Category Detail Notes Debride Nail 6-10 Nail debridement Performance o f this nail treatment by a nonprofessional would put this patients foot and overall health at risk. Therefore, nail debridement was performed extensively to reduce/remove overall nail length, girth, thickness, subungual debris, and necrotic tissue, by manual and/or electrical means through the use of a nail nipper and/or dremel-type multifocal button grinder, to a more viable healthy nail plate or bed tissue 6-10. Silver nitrate used for any petechial bleeding as necessary. Definitive antifungal treatment options have been reviewed and discussed with the patient. The patient chooses, no pharmaceutical tx (42002) Keratoma Treatment Parring or Cutting o f Benign Hyperkeratotic Lesion(s) 50445 ( More than 4 Lesions ) - The Benign hyperkeratotic lesions, as described above were pared, and/or cut utilizing a sterile 15 blade, tissue nippers, and/or dremel Progress Notes * Gamal GOMEZ MDOB:[birth year] (78 yo M)Acc No.[id number]:06/20/2024 Progress Note Patient:Gamal Chinchilla Provider:?Jerome Nava DPM :1945???Age:78 Y???Sex:Male Fady e:06/20/2024 Address:[address] [place] [address] Pcp:Ondina Ferreira Subjective: * Chief Complaints: * ???At Risk Footcare * HPI: ???At Risk footcare:?Pt States Last PCP Visit:?Date?04/05/2024 * ROS:?General/Constitutional:?Nausea?denies.?Vomiting?denies.?Hunger Thirst?denies.?Loss appetite?denies.?Chills?denies.?Fatigue?denies.?Fever?denies.?Night Sweats?denies.?Unexplained weight loss?denies.?Ophthalmologic:?Blurred vision?denies.?Red eye?denies.?HEENTM:?Dentures?denies.?Dizziness?denies.?Glasses/contacts?admits.?Retinopathy?de nies.?Blurred/double vision?denies.?TMJ?denies.?Discharge/drainage?denies.?Implants?denies.?Hard of hearing denies.?Difficulty chewing/swallowing/speaking?denies.?Nose bleeds?denies.?Sore mouth?denies.?Swollen glands?denies.?Respiratory:?On Oxygen?denies.?Pneumonia/pleurisy?denies.?Bronchitis?denies.?Emphysema?denies.?C oughing?denies.?Cough blood?denies.?Shortness of breath?denies.?Wheezing?denies.?Cardiovascular:?Pacemaker?denies.?MVP?denies.?WPW?denies.?CHF?denies.?Heart attack?denies.?Septal defect?denies.?Rapid beat?denies.?Chest pain ?denies.?Atrial Fib.?denies.?Murmur/Palpitations?denies.?Gastrointestinal:?Hemorrhoids?denies.?Stomach/Abdominal pain?denies.?Dark blood stool?denies.?Irritable bowel ?denies.?Constipation?denies.?Diarrhea?denies.?Vomiting?denies.?Hematology:?Swelling?denies.?Bruising??admits, on aspirin.?Bleeding problem??admits, on anticoagulants.?Genitourinary:?Blood urine?denies.?Frequent/Painfu/urination/bladder control?denies.?Kidney stones?denies.?Infection (UTI)?denies.?Nephropathy?admits.?Musculoskeletal:?Hammertoes?admits.?Bunions?denies.?Scoliosis/kyphosis?denies.?Muscle cramps / walking?denies.?Generalized aches and pains?denies.?Weakness?denies.?Integ.:?Hugo?denies.?Scars?denies.?Corns/calluses?admits.?Ingrown nails?admits.?Painful nails?denies.?Rashes?denies.?Neurologic:?Difficulty sleeping?denies.?Bipolar?denies.?Brain disorder?denies.?Balance trouble?admits.?Confusion?denies.?Fainting/blackouts?denies.?Headache?denies.?Tr emors?denies.? * Medical History:? * Surgical History:?angioplast y 10/1994stent 10/1999cataract-lens implants, left eye [id number] stent 06/2017 * Hospitalization/Major Diagno stic Procedure:?Denies Past Hospitalization * Family History:?Mother: dece ased, diagnosed with Unspecified cerebral artery occlusion with cerebral infarction.?Father: , diagnosed with Unspecified essential hypertension.? * Social History:?Tobacco Use:?Tobacco Use/Smoking?Are you a:?nonsmoker ?Additional Findings: Tobacco Non-User?Current non-smoker ?Tobacco use other than smoking?Are you an other tobacco user??No ???Miscellaneous:?no Caffeine, none. ?Children: yes. ?no Exercise. ?Marital status: . 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 * Medications:?TakingAnoro Ell ipta Aspirin 325 MG Tablet Orally Atorvastatin Calcium 25 MG 1 tablet Orally Once a daymetFORMIN HCl 1000 MG Tablet Orally Twice a dayMetoprolol Tartrate 50 MG Tablet Orally ZyrTEC Extra Depth Orthopedic Shoes (1 Pair) with Customized Heat Molded Multidensity Innersoles (3 Pair) as directed Dx: NIDDM/Polyneuropathy (E11.42), Hammertoe Foot Deformity (M20.41,M20.42), Preulcerative Skin Lesion(s) (L85.1Taking Anoro Ellipta Taking Aspirin 325 MG Tablet Orally Taking Atorvastatin Calcium 25 MG 1 tablet Orally Once a dayTaking metFORMIN HCl 1000 MG Tablet Orally Twice a dayTaking Metoprolol Tartrate 50 MG Tablet Orally Taking ZyrTEC Taking Extra Depth Orthopedic Shoes (1 Pair) with Customized Heat Molded Multidensity Innersoles (3 Pair) as directed Dx: NIDDM/Polyneuropathy (E11.42), Hammertoe Foot Deformity (M20.41,M20.42), Preulcerative Skin Lesion(s) (L85.1Not-Taking/PRNOmeprazole Nitroglycerin Clopidogrel Bisulfate Lisinopril Lovastatin 40 MG Tablet Orally Medication List reviewed and reconciled with the patientNot-Taking/PRN Omeprazole Not-Taking/PRN Nitroglycerin Not-Taking/PRN Clopidogrel Bisulfate Not-Taking/PRN Lisinopril Not-Taking/PRN Lovastatin 40 MG Tablet Orally Medication List reviewed and reconciled with the patient * Allergies:?Bactrimyes[Allerg ies Verified] Objective: * Vitals:?Ht: 5 ft 7 in, Wt: 1 65, BMI: 25.84, Shoe size: 7.5-8W, BP: 120/60 mm Hg, BS: not taken, Wt-k.84 kg. * ???Past Orders: ???Lab:HEMOGLOBIN A1C (GLYCO HEMOGLOBIN) (Order Date - 03/25/2024) (Collection Date - 03/25/2024) ? Value Reference Range ?HEMOGLOBIN A1C % (HH) 6.5 * Examination: ???Neurological: ?SENSORY:?Neurological exam demonstrates, reduced light touch sensation, reduced sharp/dull discrimination , B/L, 5.07 monofilament test performed at plantar aspects of 5 varied sites per foot shows sensation, reduced, B/L, Pt relates, paresthesia, shooting sensation, tingling, at rest, B/L.?Nails: ?NAILS are:?Elongated, overgrown, dystrophic, lytic, greater than 3mm thick, discolored and friable with crumbly malodorous subungual debris, 1-5 B/L.?Dermatologic: ?SKIN FINDINGS:?Skin exam reveals Keratotic lesion(s) located at, SUB MTH (s), 1, B/L , SUB MTH (s), 5, B/L , SUB 5th MTBase, B/L, Heel, B/L.? Assessment: * Assessment: 1.?Type 2 diabetes mellitus with diabetic polyneuropathy - E11.42 (Primary)?2.?Tinea unguium - B35.1? Plan: * Treatment: * Procedures:?Debride Nail 6-10:?Nail debridement?Performance of this nail treatment by a nonprofessional would put this patients foot and overall health at risk. Therefore, nail debridement was performed extensively to reduce/remove overall nail length, girth, thickness, subungual debris, and necrotic tissue, by manual and/or electrical means through the use of a nail nipper and/or dremel-type multifocal button grinder, to a more viable healthy nail plate or bed tissue 6-10. Silver nitrate used for any petechial bleeding as necessary. Definitive antifungal treatment options have been reviewed and discussed with the patient. The patient chooses, no pharmaceutical tx (30485).?Keratoma Treatment:?Parring or Cutting of Benign Hyperkeratotic Lesion(s)?27054 ( More than 4 Lesions ) - The Benign hyperkeratotic lesions, as described above were pared, and/or cut utilizing a sterile 15 blade, tissue nippers, and/or dremel.? * Procedure Codes:?44996 DEBRI DE NAIL, 6 OR MORE, Modifiers: XS 67162 TRIM SKIN LESIONS, OVER 4, Modifiers: XS * Follow Up:?prn * Images: * Sign off status: Completed true * Provider:?Jerome Nava DPM Date:?2023 Generated for Segun johansen/Jamil/Yu on:?10/17/2024 03:24 PM EST History and Physical Notes * HPI (History of Present Illness) Category Sub-Category Detail Notes Category Not es At Risk footcare Pt States Last PCP Visit: Date: Examination Category Sub-Category Detail Notes Category Not es Neurological SENSORY: Neurological exa m demonstrates, reduced light touch sensation, reduced sharp/dull discrimination , B/L, 5.07 monofilament test performed at plantar aspects of 5 varied sites per foot shows sensation, reduced, B/L, Pt relates, paresthesia, shooting sensation, tingling, at rest, B/L Dermatologic SKIN FINDINGS: Skin exam reveal s Keratotic lesion(s) located at, SUB MTH (s), 1, B/L , SUB MTH (s), 5, B/L , SUB 5th MTBase, B/L, Heel, B/L Nails NAILS are: Elongated, overg rown, dystrophic, lytic, greater than 3mm thick, discolored and friable with crumbly malodorous subungual debris, 1-5 B/L
--- OUTSIDE RECORDS SUMMARY | 2024-10-17 15:24 | XMS_ITS | Patient Health Record ---
Author Organization [facility] [place] Address [address] [place] [address] Care Team Providers Care Production Repairer Name Role Phone Ondina Ferreira Primary Care Provider Jerome Morfin Unavailable [phone] Allergies Allergen (clinical drug ingredient) Drug/Non Drug Allergy documented on EMR Reaction Allergy Type Onset Date Status sulfamethoxazole / trimethoprim Bactrim Unknown Drug Allergy Active Results Component Value Reference Range Notes HEMOGLOBIN A1C (GLYCOHEMOGLO BIN) Reviewed date:06/20/2024 09:38:49 AM Interpretation: Performing Lab: Notes/Report: HEMOGLOBIN A1C % (HH) 6.5 Reason For Referral Diagnosis 1 Type 2 diabetes mechelle itus with diabetic polyneuropathy (E11.42) Diagnosis 2 Other hammer toe(s) (acquired), right foot (M20.41) Diagnosis 3 Other hammer toe(s) (acquired), left foot (M20.42) Diagnosis 4 Tinea unguium (B35.1 ) Diagnosis 5 Xerosis cutis (L85.3 ) Diagnosis 6 Pain in right foot ( M79.671) Diagnosis 7 Plantar wart (B07.0) Diagnosis 8 Other viral warts (B 07.8) Referring Provider First Name Ondina Referring Provider Last Name Jhon Referred Organization [facility] Jimbo Referred Provider Jerome Nava Referred Address [address] [facility],[place],[address], Referred Provider Specialty Podiatry Referral Priority Routine Medications Medication SIG (Take, Route, Frequency, Duration) Notes Start Date End Date Status metFORMIN HCl 1000 MG Orally Twice a day Active Metoprolol Tartrate 50 MG Orally Active ZyrTEC Active Extra Depth Orthopedic Shoes (1 Pair) with Customized Heat Molded Multidensity Innersoles (3 Pair) as directed Dx: NIDDM/Polyneuropathy (E11.42), Hammertoe Foot Deformity (M20.41,M20.42), Preulcerative Skin Lesion(s) (L85.1 12/21/2023 Active Omeprazole Not-Takin g Nitroglycerin Not-Ta mira Clopidogrel Bisulfate Not-Taking Lisinopril Not-Takin g Anoro Ellipta Active Lovastatin 40 MG Orally Not -Taking Aspirin 325 MG Orally Activ e Atorvastatin Calcium 25 1 tablet Orally Once a day Active Immunizations Vaccine Route Administration Date Status Comme nts Influenza Unknown 07/23/2017 Refused Influenza Unknown 10/29/2017 Refused Influenza Unknown 07/29/2018 Refused Social History Tobacco Use: Social History Observation Description Date Details (start date - stop date) Never Smoker NA - NA Tobacco Use/Smoking Question Answer Notes Are you a: nonsmoker Additional Findings: Tobacco Non-User Current no n-smoker Alcohol Screen Question Answer Notes Did you have a drink containing alcohol in the p ast year? No Points 0 Interpretation Negative Tobacco use other than smoking: Question Answer Notes Are you an other tobacco user? No Problems Problem Type SNOMED Code ICD Code Onset Dates Problem Status W/U Status Risk Notes Problem Acquired hammer toe of right foot (1101691104030533 ) Other hammer toe(s) (acquired), right foot (M20.41) Active confirmed Problem Acquired hammer toe of left foot (1909728382971918 ) Other hammer toe(s) (acquired), left foot (M20.42) Active confirmed Problem Plantar wart (24390839) Plantar wart (B07.0) Active confirmed Problem Polyneuropathy due to type 2 diabetes mellitus (223827898) Type 2 diabetes mellitus with diabetic polyneuropathy (E11.42) Active confirmed Vital Signs Blood pressure diastolic 60 mm Hg 06/20/2024 Height 5 ft 7 in in 06/20/2024 Blood pressure systolic 120 mm Hg 06/20/2024 Weight 165 lbs 06/20/2024 BMI 25.84 kg/m2 06/20/2024 Procedures Procedure Date Ordered Date Performed Result Body Sit e 63907-AWMCLEL NAIL, 6 OR MORE 12/21/2023 N/A 70948-ZXFA SKIN LESIONS, OVER 4 12/21/2023 N/A 03156-PQQUOZX NAIL, 6 OR MORE 06/20/2024 N/A 09364-GPGN SKIN LESIONS, OVER 4 06/20/2024 N/A Encounters Encounter Location Date Provider Diagnosis [address] [address] 12/21/2023 Jerome Nava Type 2 diabetes mellitus with diabetic polyneuropathy E11.42 ; Tinea unguium B35.1 ; Other hammer toe(s) (acquired), right foot M20.41 and Other hammer toe(s) (acquired), left foot M20.[address] [address] 06/20/2024 Jerome Nava Type 2 diabetes mellitus with diabetic polyneuropathy E11.42 and Tinea unguium B35.[address] [address] 04/17/2024 Jerome Nava [address] [address] 06/19/2024 Jerome Nava [address] [address] 10/10/2024 Jerome Nava Assessments Encounter Date Diagnosis (ICD Code) Assessment Notes Treatment Notes Treatment Clinical Notes Section Notes 12/21/2023 Type 2 diabetes mellitus with diabetic polyneuropathy (ICD-10 - E11.42) 12/21/2023 Tinea unguium (ICD-10 - B35.1) 06/20/2024 Type 2 diabetes mellitus with diabetic polyneuropathy (ICD-10 - E11.42) 06/20/2024 Tinea unguium (ICD-10 - B35.1) 12/21/2023 Other hammer toe(s) (acquired), right foot (ICD-10 - M20.41) Patient Educated with: DIABETIC FOOT CARE INSTRUCTIONS. pdf (DIABETIC FOOT CARE INSTRUCTIONS. pdf) 12/21/2023 Other hammer toe(s) (acquired), left foot (ICD-10 - M20.42) Plan Of Treatment Pending Test Test Name Order Date 75245-KURBRBZ NAIL, 6 OR MORE 04/30/2015 17011-CXIWRUA NAIL, 6 OR MORE 07/30/2015 54203-XEMLQSW NAIL, 6 OR MORE 11/08/2015 10359-KOPWTOL NAIL, 6 OR MORE 02/25/2016 03061-TKSMAPC NAIL, 6 OR MORE 06/19/2016 08925-BOYQNXH NAIL, 6 OR MORE 09/22/2016 49239-SCHMCCT NAIL, 6 OR MORE 12/22/2016 08667-ZNLBHEQ NAIL, 6 OR MORE 04/06/2017 29002-XGAJUFU NAIL, 6 OR MORE 07/23/2017 54681-CNQJTEL NAIL, 6 OR MORE 10/29/2017 19119-EHDUYOZ NAIL, 6 OR MORE 04/22/2018 15276-HTJMRSF NAIL, 6 OR MORE 07/29/2018 00502-WDFAPFI NAIL, 6 OR MORE 11/11/2018 52565-PYKEXIH NAIL, 6 OR MORE 03/17/2019 52112-BRJRRDD NAIL, 6 OR MORE 07/18/2019 52095-EIXKJRD NAIL, 6 OR MORE 11/21/2019 91385-OPAIRHW NAIL, 6 OR MORE 04/23/2020 37263-LNMSFEA NAIL, 6 OR MORE 10/29/2020 43503-LSSVTSC NAIL, 6 OR MORE 02/25/2021 66213-FIDPRRT NAIL, 6 OR MORE 08/29/2021 36796-PEPMGEF NAIL, 6 OR MORE 01/30/2022 56180-DDKIHIO NAIL, 6 OR MORE 07/07/2022 39015-AAIONNQ NAIL, 6 OR MORE 12/08/2022 51537-GRCMHAC NAIL, 6 OR MORE 05/07/2023 76603-KGFUUPJ NAIL, 6 OR MORE 12/21/2023 57580-WSMPTNL NAIL, 6 OR MORE 06/20/2024 70074-Wilt Destruction, -14 07/07/2022 02666-Zmyq Destruction, -14 05/07/2023 56694-Fcfz Destruction, -14 12/08/2022 87173-Dryf Destruction, -14 01/30/2022 91061-Lybv Destruction, -14 08/29/2021 30850-Iblx Destruction, -14 11/08/2015 89787-Kuex Destruction, -14 07/30/2015 86928-Atsi Destruction, 1-14 04/30/2015 55949 I&D ABSCESS- SIMPLE,SINGLE 016 72993 I&D ABSCESS- SIMPLE,SINGLE 020 63089-EMLT SKIN LESIONS, OVER 4 11/21/19 20 60201-ZCJX SKIN LESIONS, OVER 4 07/18/20 19 55690-QMMC SKIN LESIONS, OVER 4 03/17/20 19 31908-EAOZ SKIN LESIONS, OVER 4 11/11/19 19 19366-FGIK SKIN LESIONS, OVER 4 07/29/20 18 03621-RIOC SKIN LESIONS, OVER 4 04/22/20 18 25211-RVJP SKIN LESIONS, OVER 4 10/29/19 18 63744-PACI SKIN LESIONS, OVER 4 07/23/20 17 69641-ERZU SKIN LESIONS, OVER 4 11/08/19 16 93537-VKOH SKIN LESIONS, OVER 4 04/30/20 15 59081-OYQE SKIN LESIONS, OVER 4 07/30/20 15 67977-XLLA SKIN LESIONS, OVER 4 12/22/19 17 73983-ZNXE SKIN LESIONS, OVER 4 04/06/20 17 42374-JFHU SKIN LESIONS, OVER 4 09/22/20 16 13819-ESQN SKIN LESIONS, OVER 4 06/19/20 16 45989-ZORR SKIN LESIONS, OVER 4 02/25/20 16 19428-EPVI SKIN LESIONS, OVER 4 08/29/20 21 03443-LUEQ SKIN LESIONS, OVER 4 02/26/20 21 66504-HMNK SKIN LESIONS, OVER 4 10/29/19 21 57680-LUHK SKIN LESIONS, OVER 4 04/23/20 20 57062-BIZA SKIN LESIONS, OVER 4 01/31/20 22 47057-IXPJ SKIN LESIONS, OVER 4 07/07/20 22 23802-GLVH SKIN LESIONS, OVER 4 12/08/19 23 86805-GJHZ SKIN LESIONS, OVER 4 05/07/20 23 98735-JRIM SKIN LESIONS, OVER 4 06/20/20 24 63269-KNHU SKIN LESIONS, OVER 4 12/21/19 24 Next Appt Details Provider Name:Jerome Canseco Elijah , 01/16/2025 09:30:00 AM, [address] [place] [address], [address], Insurance Providers Payer Name Payer Address Payer Phone Subscriber Number Group Number Insured Name Patient Relationship to Insured Coverage Start Date Coverage End Date [employer] Medicare Preferred [address] [place] [phone] [id number] Gamal Dominguez Self - patient is the insured Medical (General) History Medical History History ICD Code Chicken pox Mumps Measles Cholesterol Reflux type II diabetes Surgical History Surgery Date(Month/Year) angioplasty 10/1994 stent 10/1999 cataract-lens implants, left eye 016 Heart stent 06/2017
--- OUTSIDE RECORDS SUMMARY | 2024-10-17 15:25 | XMS_ITS | Continuity of Care Document ---
Author Name [facility] Organization [facility] Care Team Providers Care Carpenter Apprentice Name Role Phone [facility] Unavailable Unavailable Problems Combined list of problems from Department of Defense and Veterans Affairs facilities. It does not include entries that were removed or entered in error. Problem Status Onset Date Problem Type Date of Resolution Comments Source Chronic orthostatic hypotension Active 10/25/19 23 Condition [facility] H/O: vertigo Active 10/25/19 22 Condition [facility] Chronic bronchitis Active 10/25/19 21 Condition [facility] Confusion Active 10/25/19 21 Condition [facility] Hypoglycemia Active 10/25/19 21 Condition [facility] Pruritic rash Active 10/25/19 21 Condition [facility] Bronchiectasis Active 10/25/19 19 Condition Jun 05, 2023 Entered By: KHUSHBOO SCHRADER Comment: without complication [facility] Chronic cough Active 10/25/19 19 Condition [facility] Chronic deafness Active 10/25/19 19 Condition Jun 05, 2023 Entered By: KHUSHBOO SCHRADER Comment: Bilateral [facility] Weight loss Active 10/25/19 19 Condition [facility] Anemia Active 10/25/19 18 Condition [facility] Atherosclerosis of [place] coronary artery Active 10/25/19 18 Condition Jun 05, 2023 Entered By: KHUSHBOO SCHRADER Comment: of [place] heart with stable angina pectorisOct 2022 Entered By: GURPREET MAYORGA Comment: s/p PCI 2 stents [facility] Benign essential hypertension Active 10/25/19 18 Condition [facility] Diabetes mellitus type 2 Active 10/25/19 18 Condition [facility] Hyperlipidemia Active 10/25/19 18 Condition [facility] Exposure to potentially hazardous substance Active Condition Jan 04, 2024 Entered By: RENY MILTON Comment: Connect Snomed Code to ICD 10 Code refer to note dated 07/29/23 [facility] Frail elderly Active Condition [facility] Diagnosis: ICD-10-CM Z46.0 Encounter for fit/adjst of spectacles and contact lenses Active Diagnosis [facility] Diagnosis: ICD-10-CM E11.9 Type 2 diabetes mellitus without complications Active Diagnosis [facility] Diagnosis: ICD-10-CM D64.9 Anemia, unspecified Active Diagnosis [place] Diagnosis: ICD-10-CM A41.9 Sepsis, unspecified organism Active Diagnosis [place] Diagnosis: ICD-10-CM Z46.1 Encounter for fitting and adjustment of hearing aid Active Diagnosis [facility] Diagnosis: ICD-10-CM H90.3 Sensorineural hearing loss, bilateral Active Diagnosis [facility] Diagnosis: ICD-10-CM Z74.1 Need for assistance with personal care Active Diagnosis [facility] Diagnosis: ICD-10-CM L89.90 Pressure ulcer of unspecified site, unspecified stage Active Diagnosis [facility] Diagnosis: ICD-10-CM I10 Essential (primary) hypertension Active Diagnosis [place] Diagnosis: ICD-10-CM R26.9 Unspecified abnormalities of gait and mobility Active Diagnosis [facility] Diagnosis: ICD-10-CM S76.019S Strain of muscle, fascia and tendon of unsp hip, sequela Active Diagnosis [facility] Diagnosis: ICD-10-CM M62.81 Muscle weakness (generalized) Active Diagnosis [facility] Medications Combined list of outpatient medications from Department of Defense and Veterans Affairs facilities.Medications provided include 1) outpatient medications from the last 15 months, and 2) patient-reported medications. Medication Details Route Status Patient Instructions Prescription Expires Prescription Number Last Dispense Date Ordering Provider Order Date Order Qty Source ALBUTEROL 90MCG/ACTUA T (CFC-F) INHL,ORAL,8 .5GM DOSE COUNTER INHALE 1 PUFF BY MOUTH EVERY 6 HOURS NEEDED RESPIR ATORY (INHAL ATION) ACTIVE GURPREET MERCADO 2022 IELD AMMONIUM LACTATE 12% LOTION APPLY MODERATE AMOUNT TOPICALL Y ONCE DAILY TOPICA L ACTIVE GURPREET MERCADO 2022 IELD ASPIRIN 81MG TAB,EC TAKE ONE TABLET BY MOUTH ONCE DAILY ORAL ACTIVE GURPREET MERCADO 2022 IELD ATORVASTATI N CA 80MG TAB TAKE ONE TABLET BY MOUTH ONCE DAILY ORAL ACTIVE GURPREET MERCADO 2022 IELD CETIRIZINE HCL 10MG TAB TAKE ONE TABLET BY MOUTH ONCE DAILY ORAL ACTIVE GURPREET MERCADO 2022 IELD FLUTICASONE 100/UMECLID INIUM 62.5/VILANT BESSY 25MCG/ACTUA T INH,30 INHALE 1 INHALATI ON BY MOUTH ONCE DAILY RESPIR ATORY (INHAL ATION) ACTIVE GURPREET MERCADO 2022 IELD GUAIFENESIN 600MG TAB,SA TAKE TWO TABLETS BY MOUTH ONCE DAILY ORAL ACTIVE GURPREET MERCADO 2022 IELD METFORMIN HCL 1000MG TAB TAKE ONE TABLET BY MOUTH ONCE DAILY ORAL ACTIVE GURPREET MERCADO 2022 IELD METOPROLOL SUCCINATE 50MG TAB,SA TAKE ONE TABLET BY MOUTH ONCE DAILY ORAL ACTIVE GURPREET MERCADO 2022 IELD MULTIVITAMI N/MINERALS SENIOR FORMULA TAB TAKE 1 TABLET BY MOUTH ONCE DAILY FOR VITAMIN SUPPLEME NTATION ORAL ACTIVE 09/21/2025 [id number] GURPREET MERCADO 2023 60 [place] TRIAMCINOLO NE ACETONIDE 0.1% CREAM,TOP APPLY A THIN LAYER TOPICALL Y ONCE DAILY TOPICA L ACTIVE GURPREET MERCADO 2022 [place] Allergies, Adverse Reactions, Alerts Combined list of allergies from Department of Defense and Veterans Affairs facilities. It does not include entries that were removed or entered in error. Substance Category Reaction Severity Reaction type Status Date Reported Comments Source INFLUENZA VACCINE Propensity to adverse reactions to drug (finding) active 3 [facility] [place] [facility] MINOCYCLINE Propensity to adverse reactions to drug (finding) Delirium, Tremor SEVERE active 3 [facility] [place] [facility] SULFA DRUGS Propensity to adverse reactions to drug (finding) Eruption [facility] [place] [facility] SULFAMETHOXA ZOLE/TRIMETH OPRIM Propensity to adverse reactions to drug (finding) active 3 [facility] [place] [facility] Results Combined list of recent chemistry, hematology and other laboratory results from Department of Defense and Veterans Affairs, ranging from 15 months to all on record, depending upon the facility. Order Name Results Value Reference Range Date Interpretation Specimen Comments Source FOLATE (WROX) FOLATE [MASS/VOLUM E] IN SERUM OR PLASMA 3.90 ng/mL 5.2 08/22 L Specimen Type: SERUM No comment entered. Ordering Provider: COURTNEY FAROOQ Report Released Date/Time: Aug 22, 2024 10:17 AM Reporting Lab: [facility] [address] [facility] [address] Performing Lab: [facility] [address] [facility] [address] [facility] LD RETICULOC YTES RETICULOCYT ES [#/VOLUME] IN BLOOD 2.6 0.6 - 2.0 08/22 H Specimen Type: BLOOD Comment: Smear reviewed, auto CBC w/Diff accepted. Ordering Provider: COURTNEY FAROOQ Report Released Date/Time: Aug 22, 2024 10:17 AM Reporting Lab: [facility] [address] [facility] [address] Performing Lab: [facility] [place] [facility] [address] [facility] [address] [place] RETICULOC YTES RETICULOCYT ES/100 ERYTHROCYTE S IN BLOOD BY AUTOMATED COUNT 91.6 10*3/u L 30.0 - 90.0 08/22 H Specimen Type: BLOOD Comment: Smear reviewed, auto CBC w/Diff accepted. Ordering Provider: COURTNEY FAROOQ Report Released Date/Time: Aug 22, 2024 10:17 AM Reporting Lab: [facility] [place] [facility] [address] [facility] [address] Performing Lab: [facility] [place] [facility] [address] [facility] [address] [place] RETICULOC YTES HEMOGLOBIN [ENTITIC MASS] IN RETICULOCYT ES BY AUTOMATED COUNT 29.6 27.9 - 42.0 08/22 Specimen Type: BLOOD Comment: Smear reviewed, auto CBC w/Diff accepted. Ordering Provider: COURTNEY FAROOQ Report Released Date/Time: Aug 22, 2024 10:17 AM Reporting Lab: [facility] [place] [facility] [address] [facility] [address] Performing Lab: [facility] [address] [facility] [address] [place] IRON & TIBC PANEL IRON BINDING CAPACITY [MASS/VOLUM E] IN SERUM OR PLASMA 210 ug/dL 204 - 475 08/22 Specimen Type: SERUM No comment entered. Ordering Provider: COURTNEY FAROOQ Report Released Date/Time: Aug 22, 2024 10:17 AM Reporting Lab: [facility] [place] [facility] [address] [facility] [address] Performing Lab: [facility] [place] [facility] [address] [facility] [address] [place] IRON & TIBC PANEL IRON [MASS/VOLUM E] IN SERUM OR PLASMA 43 ug/dL 40 - 160 08/22 Specimen Type: SERUM No comment entered. Ordering Provider: COURTNEY FAROOQ Report Released Date/Time: Aug 22, 2024 10:17 AM Reporting Lab: [facility] [address] [facility] [address] Performing Lab: [address] [address] [place] IRON & TIBC PANEL IRON/IRON BINDING CAPACITY.TO CECY [MASS RATIO] IN SERUM OR PLASMA 20.5 20.0 - 50.0 08/22 Specimen Type: SERUM No comment entered. Ordering Provider: COURTNEY FAROOQ Report Released Date/Time: Aug 22, 2024 10:17 AM Reporting Lab: [address] [address] Performing Lab: [address] [address] [place] IRON & TIBC PANEL TRANSFERRIN [MASS/VOLUM E] IN SERUM OR PLASMA 159 mg/dL 200 - 360 08/22 L Specimen Type: SERUM No comment entered. Ordering Provider: COURTNEY FAROOQ Report Released Date/Time: Aug 22, 2024 10:17 AM Reporting Lab: [address] [address] Performing Lab: [address] [address] [place] CBC AND DIFF (AUTO) LEUKOCYTES [#/VOLUME] IN BLOOD BY AUTOMATED COUNT 7.35 10*3/u L 4.50 - 11.00 08/22 Specimen Type: BLOOD Comment: Smear reviewed, auto CBC w/Diff accepted. Ordering Provider: COURTNEY FAROOQ Report Released Date/Time: Aug 22, 2024 10:17 AM Reporting Lab: [address] [address] Performing Lab: [address] [address] [place] CBC AND DIFF (AUTO) ERYTHROCYTE S [#/VOLUME] IN BLOOD BY AUTOMATED COUNT 3.51 10*6/u L 4.23 - 5.66 08/22 L Specimen Type: BLOOD Comment: Smear reviewed, auto CBC w/Diff accepted. Ordering Provider: COURTNEY FAROOQ Report Released Date/Time: Aug 22, 2024 10:17 AM Reporting Lab: [facility] [address] [facility] [address] Performing Lab: [facility] [address] [facility] [address] [place] CBC AND DIFF (AUTO) HEMOGLOBIN [MASS/VOLUM E] IN BLOOD 11.1 g/dL 12.8 - 17 08/22 L Specimen Type: BLOOD Comment: Smear reviewed, auto CBC w/Diff accepted. Ordering Provider: COURTNEY FAROOQ Report Released Date/Time: Aug 22, 2024 10:17 AM Reporting Lab: [facility] [address] [facility] [address] Performing Lab: [address] [address] [place] CBC AND DIFF (AUTO) HEMATOCRIT [VOLUME FRACTION] OF BLOOD BY AUTOMATED COUNT 32.1 39.2 - 50.4 08/22 L Specimen Type: BLOOD Comment: Smear reviewed, auto CBC w/Diff accepted. Ordering Provider: COURTNEY FAROOQ Report Released Date/Time: Aug 22, 2024 10:17 AM Reporting Lab: [facility] [address] [facility] [address] Performing Lab: [facility] [address] [facility] [address] [place] CBC AND DIFF (AUTO) MCV [ENTITIC VOLUME] BY AUTOMATED COUNT 91.5 fL 82 - 99 08/22 Specimen Type: BLOOD Comment: Smear reviewed, auto CBC w/Diff accepted. Ordering Provider: COURTNEY FAROOQ Report Released Date/Time: Aug 22, 2024 10:17 AM Reporting Lab: [facility] [address] [facility] [address] Performing Lab: [address] [address] [place] CBC AND DIFF (AUTO) MCHC [MASS/VOLUM E] BY AUTOMATED COUNT 34.6 g/dL 30.8 - 35.1 08/22 Specimen Type: BLOOD Comment: Smear reviewed, auto CBC w/Diff accepted. Ordering Provider: COURTNEY FAROOQ Report Released Date/Time: Aug 22, 2024 10:17 AM Reporting Lab: [facility]MARYTRN [address] [address] Performing Lab: [facility]ITALRSHEL[facility]ERN [address] [address] [place] CBC AND DIFF (AUTO) PLATELETS [#/VOLUME] IN BLOOD BY AUTOMATED COUNT 117 10*3/u L 140 - 360 08/22 L Specimen Type: BLOOD Comment: Smear reviewed, auto CBC w/Diff accepted. Ordering Provider: COURTNEY FAROOQ Report Released Date/Time: Aug 22, 2024 10:17 AM Reporting Lab: [facility] [address] [address] Performing Lab: [facility] [address] [address] [place] CBC AND DIFF (AUTO) ERYTHROCYTE DISTRIBUTIO N WIDTH [RATIO] BY AUTOMATED COUNT 13.0 12.0 - 16.0 08/22 Specimen Type: BLOOD Comment: Smear reviewed, auto CBC w/Diff accepted. Ordering Provider: COURTNEY FAROOQ Report Released Date/Time: Aug 22, 2024 10:17 AM Reporting Lab: [facility]ITAL[facility] [address] [address] Performing Lab: [facility]ITALRSHEL[facility]ERN [facility] [address] [place] CBC AND DIFF (AUTO) MONOCYTES [#/VOLUME] IN BLOOD BY AUTOMATED COUNT 0.71 10*3/u L 0.30 - 1.10 08/22 Specimen Type: BLOOD Comment: Smear reviewed, auto CBC w/Diff accepted. Ordering Provider: COURTNEY FAROOQ Report Released Date/Time: Aug 22, 2024 10:17 AM Reporting Lab: [facility]TRN [facility] [address] Performing Lab: [facility]ITALRSHEL[facility]ERN [address] [address] [place] CBC AND DIFF (AUTO) MCH [ENTITIC MASS] BY AUTOMATED COUNT 31.6 pg 26.2 - 32.6 08/22 Specimen Type: BLOOD Comment: Smear reviewed, auto CBC w/Diff accepted. Ordering Provider: COURTNEY FAROOQ Report Released Date/Time: Aug 22, 2024 10:17 AM Reporting Lab: [facility] [address] [facility] [address] Performing Lab: [facility] [address] [address] [place] CBC AND DIFF (AUTO) NEUTROPHILS /100 LEUKOCYTES IN BLOOD BY AUTOMATED COUNT 63.2 43.7 - 75.8 08/22 Specimen Type: BLOOD Comment: Smear reviewed, auto CBC w/Diff accepted. Ordering Provider: COURTNEY FAROOQ Report Released Date/Time: Aug 22, 2024 10:17 AM Reporting Lab: [facility] [address] [address] Performing Lab: [facility] [address] [address] [place] CBC AND DIFF (AUTO) LYMPHOCYTES /100 LEUKOCYTES IN BLOOD BY AUTOMATED COUNT 16.9 14.0 - 42.3 08/22 Specimen Type: BLOOD Comment: Smear reviewed, auto CBC w/Diff accepted. Ordering Provider: COURTNEY FAROOQ Report Released Date/Time: Aug 22, 2024 10:17 AM Reporting Lab: [facility] [address] [address] Performing Lab: [facility] [address] [place] CBC AND DIFF (AUTO) MONOCYTES/1 00 LEUKOCYTES IN BLOOD BY AUTOMATED COUNT 9.7 5.1 - 13.7 08/22 Specimen Type: BLOOD Comment: Smear reviewed, auto CBC w/Diff accepted. Ordering Provider: COURTNEY FAROOQ Report Released Date/Time: Aug 22, 2024 10:17 AM Reporting Lab: [facility] [address] [address] Performing Lab: [facility] [address] [address] [place] CBC AND DIFF (AUTO) EOSINOPHILS /100 LEUKOCYTES IN BLOOD BY AUTOMATED COUNT 2.9 0.4 - 6.8 08/22 Specimen Type: BLOOD Comment: Smear reviewed, auto CBC w/Diff accepted. Ordering Provider: COURTNEY FAROOQ Report Released Date/Time: Aug 22, 2024 10:17 AM Reporting Lab: [facility]ITALRSHEL[facility]ERN [facility] [address] [facility] [address] Performing Lab: [facility] [address] [address] [place] CBC AND DIFF (AUTO) BASOPHILS/1 00 LEUKOCYTES IN BLOOD BY AUTOMATED COUNT 0.5 0.1 - 2.0 08/22 Specimen Type: BLOOD Comment: Smear reviewed, auto CBC w/Diff accepted. Ordering Provider: COURTNEY FAROOQ Report Released Date/Time: Aug 22, 2024 10:17 AM Reporting Lab: [facility] [address] [address] Performing Lab: [address] [address] [place] CBC AND DIFF (AUTO) NEUTROPHILS [#/VOLUME] IN BLOOD BY AUTOMATED COUNT 4.65 10*3/u L 2.20 - 7.60 08/22 Specimen Type: BLOOD Comment: Smear reviewed, auto CBC w/Diff accepted. Ordering Provider: COURTNEY FAROOQ Report Released Date/Time: Aug 22, 2024 10:17 AM Reporting Lab: [address] [address] Performing Lab: [facility] [address] [address] [place] CBC AND DIFF (AUTO) LYMPHOCYTES [#/VOLUME] IN BLOOD BY AUTOMATED COUNT 1.24 10*3/u L 1.00 - 3.20 08/22 Specimen Type: BLOOD Comment: Smear reviewed, auto CBC w/Diff accepted. Ordering Provider: COURTNEY FAROOQ Report Released Date/Time: Aug 22, 2024 10:17 AM Reporting Lab: [facility] [address] [address] Performing Lab: [facility] [address] [address] [place] CBC AND DIFF (AUTO) EOSINOPHILS [#/VOLUME] IN BLOOD BY AUTOMATED COUNT 0.21 10*3/u L 0.03 - 0.44 08/22 Specimen Type: BLOOD Comment: Smear reviewed, auto CBC w/Diff accepted. Ordering Provider: COURTNEY FAROOQ Report Released Date/Time: Aug 22, 2024 10:17 AM Reporting Lab: [facility] [address] [address] Performing Lab: [facility] [address] [place] CBC AND DIFF (AUTO) BASOPHILS [#/VOLUME] IN BLOOD BY AUTOMATED COUNT 0.04 10*3/u L 0.01 - 0.13 08/22 Specimen Type: BLOOD Comment: Smear reviewed, auto CBC w/Diff accepted. Ordering Provider: COURTNEY FAROOQ Report Released Date/Time: Aug 22, 2024 10:17 AM Reporting Lab: [facility] [address] [address] Performing Lab: [facility] [address] [address] [place] CBC AND DIFF (AUTO) IMMATURE GRANULOCYTE S/100 LEUKOCYTES IN BLOOD BY AUTOMATED COUNT 6.8 0.0 - 0.7 08/22 H Specimen Type: BLOOD Comment: Smear reviewed, auto CBC w/Diff accepted. Ordering Provider: COURTNEY FAROOQ Report Released Date/Time: Aug 22, 2024 10:17 AM Reporting Lab: [facility] [address] Performing Lab: [facility] [address] [place] CBC AND DIFF (AUTO) IMMATURE GRANULOCYTE S [#/VOLUME] IN BLOOD 0.50 10*3/u L 0.00 - 0.06 08/22 H Specimen Type: BLOOD Comment: Smear reviewed, auto CBC w/Diff accepted. Ordering Provider: COURTNEY FAROOQ Report Released Date/Time: Aug 22, 2024 10:17 AM Reporting Lab: [facility] [address] [address] Performing Lab: [facility]MARYTRN [address] [address] [place] CBC AND DIFF (AUTO) NRBC % 0.4 0.0 - 0.0 08/22 H Specimen Type: BLOOD Comment: Smear reviewed, auto CBC w/Diff accepted. Ordering Provider: COURTNEY FAROOQ Report Released Date/Time: Aug 22, 2024 10:17 AM Reporting Lab: [facility]MARYTRN [facility] [address] Performing Lab: [facility]ITALRSHEL[facility]ERN [address] [address] [place] CBC AND DIFF (AUTO) NRBC, ABS 0.03 10*3/u L 0.00 - 0.00 08/22 H Specimen Type: BLOOD Comment: Smear reviewed, auto CBC w/Diff accepted. Ordering Provider: COURTNEY FAROOQ Report Released Date/Time: Aug 22, 2024 10:17 AM Reporting Lab: [facility]N [address] [address] Performing Lab: [facility]ITALRSHEL[facility]ERN [address] [address] [place] FERRITIN FERRITIN [MASS/VOLUM E] IN SERUM OR PLASMA 1130 ng/mL 20 - 300 08/22 H Specimen Type: SERUM No comment entered. Ordering Provider: COURTNEY FAROOQ Report Released Date/Time: Aug 22, 2024 10:17 AM Reporting Lab: [facility]MARYTRN [address] [address] Performing Lab: [facility]TRN [facility] [address] [place] VITAMIN B12 COBALAMIN (VITAMIN B12) [MASS/VOLUM E] IN SERUM OR PLASMA 378 pg/mL 200 - 900 08/22 Specimen Type: SERUM No comment entered. Ordering Provider: COURTNEY FAROOQ Report Released Date/Time: Aug 22, 2024 10:17 AM Reporting Lab: [facility]MARYTRN [address] [address] Performing Lab: [facility] [address] [facility] [address] [place] BASIC METABOLIC PANEL (non-fast ing) UREA NITROGEN [MASS/VOLUM E] IN SERUM OR PLASMA 12 mg/dL 7 - 25 08/22 Specimen Type: SERUM No comment entered. Ordering Provider: COURTNEY FAROOQ Report Released Date/Time: Aug 22, 2024 10:17 AM Reporting Lab: [facility] [address] [facility] [address] Performing Lab: [facility] [address] [facility] [address] [place] BASIC METABOLIC PANEL (non-fast ing) GLUCOSE [MASS/VOLUM E] IN SERUM OR PLASMA 104 mg/dL 65 - 100 08/22 H Specimen Type: SERUM No comment entered. Ordering Provider: COURTNEY FAROOQ Report Released Date/Time: Aug 22, 2024 10:17 AM Reporting Lab: [facility] [address] [facility] [address] Performing Lab: [facility] [address] [facility] [address] [place] BASIC METABOLIC PANEL (non-fast ing) SODIUM [MOLES/VOLU ME] IN SERUM OR PLASMA 136 mmol/L 135 - 145 08/22 Specimen Type: SERUM No comment entered. Ordering Provider: COURTNEY FAROOQ Report Released Date/Time: Aug 22, 2024 10:17 AM Reporting Lab: [facility] [address] [facility] [address] Performing Lab: [facility] [address] [facility] [address] [place] BASIC METABOLIC PANEL (non-fast ing) POTASSIUM [MOLES/VOLU ME] IN SERUM OR PLASMA 4.7 mmol/L 3.5 - 5.0 08/22 Specimen Type: SERUM No comment entered. Ordering Provider: COURTNEY FAROOQ Report Released Date/Time: Aug 22, 2024 10:17 AM Reporting Lab: [facility] [address] [facility] [address] Performing Lab: [facility] [address] [facility] [address] [place] BASIC METABOLIC PANEL (non-fast ing) CHLORIDE [MOLES/VOLU ME] IN SERUM OR PLASMA 106 mmol/L 100 - 110 08/22 Specimen Type: SERUM No comment entered. Ordering Provider: COURTNEY FAROOQ Report Released Date/Time: Aug 22, 2024 10:17 AM Reporting Lab: [address] [address] Performing Lab: [address] [address] [place] BASIC METABOLIC PANEL (non-fast ing) CARBON DIOXIDE, TOTAL [MOLES/VOLU ME] IN SERUM OR PLASMA 18 meq/L 20 - 30 08/22 L Specimen Type: SERUM No comment entered. Ordering Provider: COURTNEY FAROOQ Report Released Date/Time: Aug 22, 2024 10:17 AM Reporting Lab: [address] [address] Performing Lab: [address] [address] [place] BASIC METABOLIC PANEL (non-fast ing) CREATININE [MASS/VOLUM E] IN SERUM OR PLASMA 1.15 mg/dL 0.50 - 1.40 08/22 Specimen Type: SERUM No comment entered. Ordering Provider: COURTENY FAROOQ Report Released Date/Time: Aug 22, 2024 10:17 AM Reporting Lab: [address] [id number] Performing Lab: [address] [phone] [facility] BASIC METABOLIC PANEL (non-fast ing) GLOMERULAR FILTRATION RATE/1.73 SQ M.PREDICTED [VOLUME RATE/AREA] IN SERUM, PLASMA OR BLOOD BY CREATININE- BASED FORMULA (CKD-EPI 2020) 65 mL/min 60 08/22 Specimen Type: SERUM No comment entered. Ordering Provider: COURTNEY FAROOQ Report Released Date/Time: Aug 22, 2024 10:17 AM Reporting Lab: [address] [place] [address] Performing Lab: [facility] [place] [facility] [address] [facility] [address] [place] LIVER FUNCTION PROTEIN [MASS/VOLUM E] IN SERUM OR PLASMA 6.0 g/dL 6.0 - 8.3 08/22 Specimen Type: SERUM No comment entered. Ordering Provider: COURTNEY FAROOQ Report Released Date/Time: Aug 22, 2024 10:17 AM Reporting Lab: [facility] [place] [facility] [address] [facility] [address] Performing Lab: [facility] [address] [facility] [address] [place] LIVER FUNCTION ALBUMIN [MASS/VOLUM E] IN SERUM OR PLASMA 3.1 g/dL 3.5 - 5.0 08/22 L Specimen Type: SERUM No comment entered. Ordering Provider: COURTNEY FAROOQ Report Released Date/Time: Aug 22, 2024 10:17 AM Reporting Lab: [facility] [place] [facility] [address] [facility] [address] Performing Lab: [facility] [address] [address] [place] LIVER FUNCTION ALKALINE PHOSPHATASE [ENZYMATIC ACTIVITY/VO LUME] IN SERUM OR PLASMA 138 U/L 40 - 150 08/22 Specimen Type: SERUM No comment entered. Ordering Provider: COURTNEY FAROOQ Report Released Date/Time: Aug 22, 2024 10:17 AM Reporting Lab: [facility] [address] [facility] [address] Performing Lab: [facility] [address] [facility] [address] [place] LIVER FUNCTION ASPARTATE AMINOTRANSF ERASE [ENZYMATIC ACTIVITY/VO LUME] IN SERUM OR PLASMA 27 U/L 5 - 34 08/22 Specimen Type: SERUM No comment entered. Ordering Provider: COURTNEY FAROOQ Report Released Date/Time: Aug 22, 2024 10:17 AM Reporting Lab: [facility] [address] [address] Performing Lab: [place] [facility] [place] [facility] [address] [facility] [address] [place] LIVER FUNCTION ALANINE AMINOTRANSF ERASE [ENZYMATIC ACTIVITY/VO LUME] IN SERUM OR PLASMA 36 U/L 08/22 Specimen Type: SERUM No comment entered. Ordering Provider: COURTNEY FAROOQ Report Released Date/Time: Aug 22, 2024 10:17 AM Reporting Lab: [facility] [place] [facility] [address] [facility] [address] Performing Lab: [facility] [place] [facility] [address] [facility] [address] [place] LIVER FUNCTION BILIRUBIN.T OTAL [MASS/VOLUM E] IN SERUM OR PLASMA 1.0 mg/dL 0.2 - 1.2 08/22 Specimen Type: SERUM No comment entered. Ordering Provider: COURTNEY FAROOQ Report Released Date/Time: Aug 22, 2024 10:17 AM Reporting Lab: [facility] [place] [address] [address] Performing Lab: [place] [facility] [place] [address] [address] [place] URINALYSI S COLOR OF URINE Light- Yellow 08/16 Specimen Type: URINE Comment: If Glucose = >500 and Ketones are positive, please alert the Physician. Ordering Provider: COURTNEY FAROOQ Report Released Date/Time: Aug 08, 2024 01:49 PM Reporting Lab: [facility] [place] [address] [address] Performing Lab: [place] [facility] [place] [address] [address] [facility] [place] [facility] URINALYSI S APPEARANCE OF URINE Clear 08/16 Specimen Type: URINE Comment: If Glucose = >500 and Ketones are positive, please alert the Physician. Ordering Provider: COURTNEY FAROOQ Report Released Date/Time: Aug 08, 2024 01:49 PM Reporting Lab: [facility] [place] [address] [address] Performing Lab: [place] [facility] [place] [address] [address] [facility] [place] [facility] URINALYSI S GLUCOSE [MASS/VOLUM E] IN URINE Normal mg/dL 08/16 Specimen Type: URINE Comment: If Glucose = >500 and Ketones are positive, please alert the Physician. Ordering Provider: COURTNEY FAROOQ Report Released Date/Time: Aug 08, 2024 01:49 PM Reporting Lab: [facility] [place] [address] [address] Performing Lab: [facility] [place] [facility] [address] [facility] [address] [facility] [place] [facility] URINALYSI S KETONES [MASS/VOLUM E] IN URINE BY TEST STRIP NEGATI VEmg/d L 08/16 Specimen Type: URINE Comment: If Glucose = >500 and Ketones are positive, please alert the Physician. Ordering Provider: COURTNEY FAROOQ Report Released Date/Time: Aug 08, 2024 01:49 PM Reporting Lab: [facility] [place] [address] [address] Performing Lab: [facility] [place] [facility] [address] [facility] [address] [facility] URINALYSI S ERYTHROCYTE S [PRESENCE] IN URINE SEDIMENT BY LIGHT MICROSCOPY NEGATI VEmg/d L 08/16 Specimen Type: URINE Comment: If Glucose = >500 and Ketones are positive, please alert the Physician. Ordering Provider: COURTNEY FAROOQ Report Released Date/Time: Aug 08, 2024 01:49 PM Reporting Lab: [facility] [place] [facility] [address] [facility] [address] Performing Lab: [facility] [place] [address] [address] [facility] [place] [facility] URINALYSI S PROTEIN [MASS/VOLUM E] IN URINE BY TEST STRIP 10 mg/dL 08/16 Specimen Type: URINE Comment: If Glucose = >500 and Ketones are positive, please alert the Physician. Ordering Provider: COURTNEY FAROOQ Report Released Date/Time: Aug 08, 2024 01:49 PM Reporting Lab: [facility] [place] [facility] [address] [facility] [address] Performing Lab: [facility] [place] [facility] [address] [facility] [address] [facility] [place] [facility] URINALYSI S NITRITE [PRESENCE] IN URINE NEGATI VEmg/d L 08/16 Specimen Type: URINE Comment: If Glucose = >500 and Ketones are positive, please alert the Physician. Ordering Provider: COURTNEY FAROOQ Report Released Date/Time: Aug 08, 2024 01:49 PM Reporting Lab: [facility] [place] [facility] [address] [facility] [address] Performing Lab: [facility] [place] [facility] [address] [facility] [address] [facility] [place] [facility] URINALYSI S BILIRUBIN.T OTAL [PRESENCE] IN URINE NEGATI VEmg/d L 08/16 Specimen Type: URINE Comment: If Glucose = >500 and Ketones are positive, please alert the Physician. Ordering Provider: COURTNEY FAROOQ Report Released Date/Time: Aug 08, 2024 01:49 PM Reporting Lab: [facility] [place] [facility] [address] [facility] [address] Performing Lab: [facility] [place] [facility] [address] [facility] [address] [facility] [place] [facility] URINALYSI S SPECIFIC GRAVITY OF URINE BY REFRACTOMET RY 1.017 1.016 - 1.022 08/16 Specimen Type: URINE Comment: If Glucose = >500 and Ketones are positive, please alert the Physician. Ordering Provider: COURTNEY FAROOQ Report Released Date/Time: Aug 08, 2024 01:49 PM Reporting Lab: [facility] [place] [facility] [address] [facility] [address] Performing Lab: [facility] [place] [facility] [address] [facility] [address] [facility] [place] [facility] URINALYSI S PH OF URINE BY TEST STRIP 6.0 5.0 - 9.0 08/16 Specimen Type: URINE Comment: If Glucose = >500 and Ketones are positive, please alert the Physician. Ordering Provider: COURTNEY FAROOQ Report Released Date/Time: Aug 08, 2024 01:49 PM Reporting Lab: [facility] [place] [facility] [address] [facility] [address] Performing Lab: [facility] [address] [address] [facility] [place] [facility] URINALYSI S UROBILINOGE N [MASS/VOLUM E] IN URINE BY TEST STRIP Normal mg/dL <2.0 - 2.0 08/16 Specimen Type: URINE Comment: If Glucose = >500 and Ketones are positive, please alert the Physician. Ordering Provider: COURTNEY FAROOQ Report Released Date/Time: Aug 08, 2024 01:49 PM Reporting Lab: [facility] [place] [address] [address] Performing Lab: [facility] [place] [address] [address] [facility] [place] [facility] URINALYSI S LEUKOCYTE ESTERASE [PRESENCE] IN URINE BY TEST STRIP TRACE 08/16 Specimen Type: URINE Comment: If Glucose = >500 and Ketones are positive, please alert the Physician. Ordering Provider: COURTNEY FAROOQ Report Released Date/Time: Aug 08, 2024 01:49 PM Reporting Lab: [facility] [place] [address] [address] Performing Lab: [facility] [place] [facility] [address] [facility] [address] [facility] [place] [facility] MICROALBU MIN CREATININ E RATIO PANEL MICROALBUMI N/CREATININ E [MASS RATIO] IN URINE 7.3 mg/g 0 - 29.9 08/16 Specimen Type: URINE No comment entered. Ordering Provider: COURTNEY FAROOQ Report Released Date/Time: Aug 08, 2024 01:49 PM Reporting Lab: [facility] [place] [address] [address] Performing Lab: [facility] [place] [facility] [address] [facility] [address] [facility] [place] [facility] MICROALBU MIN CREATININ E RATIO PANEL MICROALBUMI N [MASS/VOLUM E] IN URINE 0.8 mg/dL 08/16 Specimen Type: URINE No comment entered. Ordering Provider: COURTNEY FAROOQ Report Released Date/Time: Aug 08, 2024 01:49 PM Reporting Lab: [facility] [place] [facility] [address] [facility] [address] Performing Lab: [facility] [place] [facility] [address] [facility] [address] [facility] [place] [facility] MICROALBU MIN CREATININ E RATIO PANEL CREATININE [MASS/VOLUM E] IN URINE 109.38 mg/dL 08/16 Specimen Type: URINE No comment entered. Ordering Provider: COURTNEY FAROOQ Report Released Date/Time: Aug 08, 2024 01:49 PM Reporting Lab: [facility] [place] [facility] [address] [facility] [address] Performing Lab: [facility] [address] [facility] [address] [facility] Vital Signs Combined list of inpatient and outpatient Vital Signs from Department of Defense and Veterans Affairs, ranging from 12 months to all on record, depending upon the facility. Vital Sign Value Date Comments Source SYSTOLIC BLOOD PRESSURE 89 08/22/2024 09:46:52 [place] DIASTOLIC BLOOD PRESSURE 59 08/22/2024 09:46:52 [place] PULSE OXIMETRY 93 08/22/2024 09:46:52 [place] WEIGHT 08/22/2024 09:46:52 [place] PULSE 91 08/22/2024 09:46:52 [place] RESPIRATION 20 08/22/2024 09:46:52 [place] Encounters Combined list of: 1) Encounters from Department of Veterans Affairs facilities going back up to thelast 18 months. 2) Encounters from the Department of Defense facilities going back up to 280 months. Location Location Details Encounter Type Encounter Number Reason For Visit Attending Provider ADM Date DC Date Status Disposition Source [facility] [place] [facility] En[facility] [id number] 05[facility] [place] [place] En[facility] [id number] 05/26 [facility] [place] [facility] [place] En[facility] [id number] 05/26 [facility] [place] [facility] [place] En[facility] [id number] 05/26 [facility] [place] [facility] [place] [id number] 05/28 [facility] [place] [facility] [place] [id number] 06/01 [facility] [place] [place] [id number] 06/03 [facility] [place] [facility] [place] En[facility] [id number] 06/03 [facility] [place] [facility] [place] En[facility] [id number] 06/05 [facility] [place] [facility] [place] En[facility] [id number] 06/10 [facility] [place] [facility] [place] En[facility] [id number] 06/11 [facility] [place] [facility] [place] En[facility] [id number] 06/21 [facility] [place] [facility] [place] En[facility] [id number] 06/23 [facility] [place] [facility] [place] [id number] 06/24 [facility] [place] [facility] [place] En[facility] [id number] 06/24 [facility] [place] [facility] [place] En[facility] [id number] 06/29 [facility] [place] [facility] [place] En[facility] [id number] 06/29 [facility] [place] [facility] [place] En[facility] [id number] 06/29 [facility] [place] [facility] [place] En[facility] [id number] 07/02 [facility] [place] [facility] [place] HC PRO PHONE CALL 5-10 MIN [id number] Diagnos is: ICD-10- CM M62.81 Muscle weaknes s (genera lized)< br/> HUAN CHEUNG 07/02 [facility] [place] [place] En[facility] [id number] 07/05 [facility] [place] [facility] [place] En[facility] [id number] 07/05 [facility] [place] [facility] [place] Encounter [id number] 07/05 [facility] [place] [place] Encounter [id number] 07/07 [facility] [place] [facility] [place] En[facility] [id number] 07/09 [facility] [place] [facility] [place] En[facility] [id number] Diagnos is: ICD-10- CM S76.019 S Strain of muscle, fascia and tendon of unsp hip, sequela
SAAD BOWERS 07/09 [facility] [place] En[facility] [id number] 07/12 [facility] [place] [place] En[facility] [id number] 07/12 [facility] [place] [facility] [place] Encounter [id number] 07/13 [facility] [place] [facility] [place] Encounter [id number] 07/15 [facility] [place] [facility] [place] En[facility] [id number] 07/15 [facility] [place] [facility] [place] Encounter [id number] 07/19 [facility] [place] [facility] [place] En[facility] [id number] 07/19 [facility] [place] [place] En[facility] [id number] 07/20 [facility] [place] [place] WHEELCHAIR MNGMENT TRAINING [id number] Diagnos is: ICD-10- CM R26.9 Unspeci fied abnorma lities of gait and mobilit y
GONZALES,DI ANE 07/20 [facility] [place] En[facility] [id number] 07/21 [facility] [place] En[facility] [id number] 07/26 [facility] [place] [facility] [place] En[facility] [id number] 07/26 [facility] [place] [facility] En[facility] [id number] 07/27 [facility] [place] OFFICE O/P NEW MOD 45-59 MIN [id number] Diagnos is: ICD-10- CM I10 Essenti al (primar y) hyperte nsion<b r/> GISELA BANGURA 07/29 [place] [facility] En[facility] [id number] 07/29 [facility] [place] QNHP OL DIG ASSMT&MGMT 5-10 [id number] Diagnos is: ICD-10- CM L89.90 Pressur e ulcer of unspeci fied site, unspeci fied stage<b r/> JEANNETTE LARSON 07[facility]30 [facility] En[facility] [id number] 07/30 [facility] [place] En[facility] [id number] 08/02 [facility] [place] En[facility] [id number] 08/02 [facility] [place] [facility] [place] Encounter [id number] 08/04 [facility] [place] [id number] 08/05 [facility] [place] En[facility] [id number] 08/09 [facility] [place] [facility] [id number] 08/09 [facility] [place] [facility] [id number] 08/09 [facility] [place] [facility] En[facility] [id number] 08/10 [facility] [place] En[facility] [id number] 08/13 [facility] [place] [id number] 08/16 [facility] [place] En[facility] [id number] 08/16 [facility] [place] En[facility] [id number] 08/16 [facility] [place] En[facility] [id number] 08/18 [facility] [place] En[facility] [id number] 08/20 [facility] [place] En[facility] [id number] 08/21 [facility] [place] En[facility] [id number] 08/23 [facility] [place] En[facility] [id number] 08/24 [facility] [place] En[facility] [id number] 08/25 [facility] [place] En[facility] [id number] 08/25 [facility] [place] En[facility] [id number] 08/30 [facility] [place] En[facility] [id number] 09/01 [facility] [place] En[facility] [id number] 09/06 [facility] [place] En[facility] [id number] 09/06 [facility] [place] En[facility] [id number] 09/13 [facility] [place] En[facility] [id number] 09/13 [facility] [place] En[facility] [id number] 09/20 [facility] [place] En[facility] [id number] 09/20 [facility] [place] En[facility] [id number] 09/20 [facility] [place] En[facility] [id number] 09/21 [facility] [place] En[facility] [id number] 09/21 [facility] [place] En[facility] [id number] 09/21 [facility] En[facility] [id number] ADOLPH JARAANASTASIYA 09/22 [facility] [id number] 09/29 [facility] [id number] 09/29 [facility] [id number] 09/29 [facility] [id number] HALLEY KIRBY 09/29 [facility] [id number] 09/29 [facility] [id number] 10/04 [facility] [id number] 10/04 [facility] [id number] 10/04 [facility] [id number] 10/04 [facility] [id number] 10/04 [facility] [id number] 10/08 [facility] [id number] 10/10 [facility] [id number] 10/12 [facility] [id number] 10/13 [facility] [id number] 10/14 [facility] [id number] 10/19 [facility] [id number] 10/19 [facility] [id number] 10/19 [facility] [id number] 10/26 [facility] [id number] BERTRAND OLEARY 10/26 [facility] FIT SPECTACLES MULTIFOCAL [id number] Diagnos is: ICD-10- CM Z46.0 Encount er for fit/adj st of spectac les and contact lenses< br/> OBI HIDALGO 10/27 [facility] PRO PHONE CALL 21-30 MIN [id number] Diagnos is: ICD-10- CM Z74.1 Need for assista nce with persona l care
BILL BYERS 10/28 [facility] (6[facility]) CASE MANAGEMENT [id number] Diagnos is: ICD-10- CM Z74.1 Need for assista nce with persona l care
JANAENYA MANUELA Nova 10/29 [facility] (6[facility]GE[facility] Outpatient Encounter [id number] 11/01 [facility] PROGRAM INTAKE ASSESSMENT [id number] Diagnos is: ICD-10- CM Z74.1 Need for assista nce with persona l care
BILL BYERS FLAKITO 11/01 [facility] En[facility] [id number] 11/02 [facility] Encounter [id number] 11/03 [facility] PROGRAM INTAKE ASSESSMENT [id number] Diagnos is: ICD-10- CM Z74.1 Need for assista nce with persona l care
MONALISA BUI 11/05 [facility] En[facility] [id number] 11/08 [facility] Encounter [id number] 11/08 [facility] Encounter [id number] 11/15 [facility] [id number] 11/15 [facility] Encounter [id number] 11/22 [facility] Encounter [id number] 11/22 [facility] PROGRAM INTAKE ASSESSMENT [id number] Diagnos is: ICD-10- CM Z74.1 Need for assista nce with persona l care
BILL BYERS 11/23 [facility] En[facility] [id number] 11/24 [facility] Encounter [id number] 11/24 [facility] Encounter [id number] 11/24 [facility] Encounter [id number] 11/25 [facility] HC PRO PHONE CALL 5-10 MIN [id number] Diagnos is: ICD-10- CM Z74.1 Need for assista nce with persona l care
BILL BYERS FLAKITO 11/26 [facility] En[facility] [id number] 11/29 [facility] Encounter [id number] 11/29 [facility] Encounter [id number] 12/06 [facility] Encounter [id number] 12/13 [facility] Encounter [id number] 12/13 [facility] Encounter [id number] REBA DELUCA 12/14 [facility] Encounter [id number] 12/16 [facility] Encounter [id number] 12/16 [facility]counter [id number] 12/17 [facility] Encounter [id number] 12/20 [facility] Out[facility] Encounter [id number] 12/20 [facility] Encounter [id number] 12/26 [facility]counter [id number] 12[facility]26 [facility] Encounter [id number] 12/27 [facility] Encounter [id number] 12/28 [facility] Encounter [id number] 01/02 [facility]counter [id number] 01/02 [facility] Encounter [id number] 01/04 [facility] Encounter [id number] 01/09 [facility] Encounter [id number] 01/16 [facility] Encounter [id number] 01/16 [facility]counter [id number] 01[facility]17 [facility] HC PRO PHONE CALL 11-20 MIN [id number] Diagnos is: ICD-10- CM Z74.1 Need for assista nce with persona l care
AUNGMARY LOUNicolásBILL FRAGA 01/18 [facility] En[facility] [id number] 01/23 [facility] Encounter [id number] 01/23 [facility] Encounter [id number] 01/30 [facility] Out[facility]counter [id number] 01/31 [facility] Encounter [id number] 02/06 [facility]counter [id number] 02/06 [facility] Out[facility] Encounter [id number] 02/13 [facility] Out[facility] Encounter [id number] 02/13 [facility] (6[facility]GE) Outpatient Encounter [id number] 02/13 [facility] ([facility]GE[facility] Encounter [id number] 02/15 [facility] Out[facility] Encounter [id number] 02/15 [facility] Out[facility] Encounter [id number] 02/20 [facility] Encounter [id number] 02/22 [facility] HEARING AID EXAM BOTH EARS [id number] Diagnos is: ICD-10- CM H90.3 Sensori neural hearing loss, bilater al
Alexus SANDY 02/24 [facility] Out[facility] Encounter [id number] 02/27 [facility] Out[facility] Encounter [id number] 02/27 [facility] Out[facility] Encounter [id number] 03/06 [facility] Out[facility] Encounter [id number] 03/06 [facility] Out[facility]counter [id number] 03/14 [facility] Out[facility] Encounter [id number] 03/20 [facility] Out[facility]counter [id number] 03/20 [facility] Out[facility] Encounter [id number] 03/21 [facility] Out[facility] Encounter [id number] 03/27 [facility] Out[facility] Encounter [id number] 03/27 [facility] Out[facility]counter [id number] 03/27 [facility] CONFORMITY EVALUATION [id number] Diagnos is: ICD-10- CM Z46.1 Encount er for fitting and adjustm ent of hearing aid<br/ > Alexus SANDY 03/30 [facility] Out[facility] Encounter [id number] 04/03 [facility] Out[facility] Encounter [id number] 04/03 [facility] Out[facility] Encounter [id number] 04/14 [facility] Out[facility]counter [id number] 04/14 [facility] Out[facility] Encounter [id number] 04/16 [facility] Out[facility]counter [id number] 04/17 [facility] Out[facility]counter [id number] 04/21 [facility] Out[facility] Encounter [id number] 04/24 [facility] Out[facility] Encounter [id number] 04/24 [facility] Out[facility]counter [id number] 04/30 [facility] Out[facility] Encounter [id number] 05/01 [facility] Out[facility]counter [id number] 05/01 [facility] Out[facility] Encounter [id number] 05/08 [facility] Out[facility] Encounter [id number] 05/08 [facility] HEARING AID EXAM BOTH EARS [id number] 1. Diagnos is: ICD-10- CM Z46.1 Encount er for fitting and adjustm ent of hearing aid<br/ > KHAI GRAYUmair FILOMENA RODRIGUEZ 05/12 [facility] Out[facility] Encounter [id number] 05/15 [facility] Out[facility] Encounter [id number]/15 [facility] Out[facility]counter [id number] 05/22 [facility] Out[facility] Encounter [id number] 05/29 [facility] Out[facility] Encounter [id number] 06/05 [facility] Out[facility] Encounter [id number] 06/05 [facility] Out[facility]counter [id number] 06/12 [facility] Out[facility]counter [id number] 06/13 [facility] HEARING SERVICE [id number] Diagnos is: ICD-10- CM Z46.1 Encount er for fitting and adjustm ent of hearing aid<br/ > Alexus SANDY 06/13 [facility] Out[facility] Encounter [id number] 06/15 [facility]counter [id number] 1.06/19 [facility] Out[facility] Encounter [id number] 1.06/26 [facility] Encounter [id number] 1.06/27 [facility] Encounter [id number] 1.07/03 [facility] Encounter [id number] 1.07/10 [facility] Encounter [id number] 1.07/17 [facility] Out[facility] Encounter [id number] 1.07/24 [facility] Encounter [id number] 1.07/28 [facility] Encounter [id number] 1.07/31 [facility]counter [id number] [facility] Out[facility]counter [id number] 07/31 [facility] Out[facility] Encounter [id number] 08/01 [facility] Out[facility] Encounter [id number] MAXIMILIANO KUMARI 08/01 [facility] Encounter [id number] 08/01 [facility] [place] Outpatient [facility]counter [id number] 08/03 [place] [facility] Out[facility] Encounter [id number] 08/04 [facility]counter [id number] 08/07 [facility] Encounter [id number] 08/08 [facility] Out[facility] Encounter [id number] 08/08 [facility] Out[facility] Encounter [id number] 08/14 [facility] Encounter [id number] 08/14 [facility] Encounter [id number] 08/16 [facility] [id number] 08/17 [facility]counter [id number] 1.08/20 [facility] En[facility] [id number] 1.08/21 [facility] OFF[facility] O/P EST LOW 20 MIN [id number] Diagnos is: ICD-10- CM A41.9 Sepsis, unspeci fied organis m
ANJU FAROOQ 08/22 [facility] Encounter [id number] 08/24 [facility] Encounter [id number] 08/27 [facility] Out[facility] Encounter [id number] ANASTASIYA FRAUSTO 08/28 [facility] Encounter [id number] 08/28 [facility] Encounter [id number] 08/28 [facility] Out[facility] Encounter [id number] 09/04 [facility] Out[facility] Encounter [id number] 09/20 [facility] OFFICE O/P EST MOD 30 MIN [id number] 1BY. Diagnos is: ICD-10- CM D64.9 Anemia, unspeci fied
JCSALLYYaritza GISELA MARIA 09[facility]20 [facility] Outpatient Encounter [id number] 1.10/02 [facility] [place] [id number] 1. Diagnos is: ICD-10- CM E11.9 Type 2 diabete s mellitu s without complic ations< br/> SATURNINOELI H B 10/03 [facility] FIT SPECTACLES MULTIFOCAL [id number] 1. Diagnos is: ICD-10- CM Z46.0 Encount er for fit/adj st of spectac les and contact lenses< br/> SATURNINOELI H B 10/04 [facility] [place] [facility] Social History Combined list of available smoking, tobacco, and other social history from Department of Defense and Veterans Affairs facilities. Social History Type Response Date Comment Sourc e Tobacco smoking status [facility] NEVER USED 08/22/2024 [facility] D History of tobacco use [facility] FORMER USER 08/22/2024 [facility] History of tobacco use [facility] FORMER USER 06/03/2023 [facility] [place] [facility] Plan of Care List of future care activities from Department of Veterans Affairs facilities. Additional future care activities may be listed in the Assessment and Plan section. Date/Time Care Activity Care Activity Detail Facili ty 09/20/2024 Consult Order NUTRITION ASSESS MENT/EDUCATION/SPOPC OUTPT Cons Litigation Examiner's Choice [facility] Advance Directives List of completed, amended, or rescinded Advance Directives on record at Department of Veterans Affairs facilities. An actual copy of the Directive is not included. Date Advance Directive Provider Source 07/15/2023 ADVANCE DIRECTIVE ROGER PEDRAZA 06/30/2019 ADVANCE DIRECTIVE [facility]
--- OUTSIDE RECORDS SUMMARY | 2024-10-17 15:26 | XMS_ITS ---
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 [place] Organization [facility] Address [address] [place] [address] Care Team Providers Care Dial Mounter Name Role Phone GURPREET PEREZ Primary Care [...] Harding's Name Patient's Relationship to Policy Harding [facility] (WNR) MEDICARE ADVANTAGE [facility] (WNR) Oct 25, 2011 [facility] [id number] FATEMEH GOMEZ PATIENT Selected Encounter This section includes the information on record at [place] for the Encounter. Date/Time Encounter Type Encounter Description Reason Pro vider Source Aug 08, 2024 08:44 AM Outpatient Encounter PRIMARY CARE/MEDICINE [facility] Encounter Template Text not used by [place] Plan of Treatment: Future Appointments (+ 6 [...] 20 appointments. The data comes from all [place] treatment [facility]. Appointment Date/Time Appointment Type Appointme nt Facility Name Aug 22, 2024 09:30 AM AMBULATORY - MEDICINE [facility] Aug 29, 2024 08:00 AM AMBULATORY - MEDICINE [facility] Sep 20, 2024 09:00 AM AMBULATORY - MEDICINE [facility] Oct 03, 2024 11:30 AM [facility]UL[facility]ORY - [facility] Active, Pending, and Scheduled Orders This section includes a listing of several types of active, pending, and scheduled orders, including clinic medications orders, diagnostic test orders, procedure orders and consult orders; where the start date of the order is 45 days before the date of the Encounter or 45 days after the date of theEncounter. The data comes from all [facility]. Test Date/Time Test Type Test Details Facility Name Aug 28, 2024 04:23 PM Consult Order [facility] NON-SKILLED HOME HEALTH AIDE Cons Drug Inspector's [facility] Sep 20, 2024 10:06 AM Consult Order NUTRITION ASSESSMENT/EDUCATION/SPO PC OUTPT Cons Drug Inspector's [facility] Lab Results: +/- 30 days of the encounter This section includes the Chemistry and Hematology Lab Results on record with [place] for the patient. Radiology Reports and Pathology Reports are provided separately, in subsequent sections. Lab Results This section contains the Chemistry/Hematology Results that were resulted 30 days before or 30 daysafter the date of the Encounter. Date/Time Source Result Type Result - Unit Interpretation Reference Range Comment Aug 22, 2024 10:26 AM [facility] FOLATE (OX) Specimen Type: SERUM No comment entered. Ordering Provider: COURTNEY FAROOQ Report Released Date/Time: Aug 22, 2024 10:17 AM Reporting Lab: [facility] [address] [facility] [address] Performing Lab: [facility] [address] [facility] [address] FOLATE (WROX) 3.90 ng/mL L >5.2 Aug 22, 2024 10:26 AM [facility] RETICULOCYTES Specimen Type: BLOOD Comment: Smear reviewed, auto CBC w/Diff accepted. Ordering Provider: COURTNEY FAROOQ Report Released Date/Time: Aug 22, 2024 10:17 AM Reporting Lab: [address] [address] Performing Lab: [address] [address] RETIC % 2.6 H 0.6-2.0 RETIC, ABS 91.6 10*3/uL H 30.0-90.0 RET-HE % 29.6 27.9-42.0 Aug 22, 2024 10:26 AM [facility] IRON & TIBC PANEL Specimen Type: SERUM No comment entered. Ordering Provider: COURTNEY FAROOQ Report Released Date/Time: Aug 22, 2024 10:17 AM Reporting Lab: [address] [address] Performing Lab: [address] [address] TIBC 210 ug/dL 204-475 IRON 43 ug/dL 40-160 Transferrin Saturation 20.5 20.0-50.0 Transferrin (TRF) 159 mg/dL L 200-360 Aug 22, 2024 10:26 AM [facility] CBC AND DIFF (AUTO) Specimen Type: BLOOD Comment: Smear reviewed, auto CBC w/Diff accepted. Ordering Provider: COURTNEY FAROOQ Report Released Date/Time: Aug 22, 2024 10:17 AM Reporting Lab: [address] [address] Performing Lab: [address] [address] WBC 7.35 10*3/uL 4.50-11.00 RBC 3.51 10*6/uL [...] 0.0-0.7 IMMATURE GRAN, ABS 0.50 10*3/uL H 0.00-0.06 NRBC % 0.4 H 0.0-0.0 NRBC, ABS 0.03 10*3/uL H 0.00-0.00 Aug 22, 2024 10:26 AM [facility] FERRITIN Specimen Type: SERUM No comment entered. Ordering Provider: COURTNEY FAROOQ Report Released Date/Time: Aug 22, 2024 10:17 AM Reporting Lab: [facility] [address] [facility] [address] Performing Lab: [address] [address] FERRITIN 1130 ng/mL H 20-300 Aug 22, 2024 10:26 AM [facility] VITAMIN B12 Specimen Type: SERUM No comment entered. Ordering Provider: COURTNEY FAROOQ Report Released Date/Time: Aug 22, 2024 10:17 AM Reporting Lab: [facility] [address] [facility] [address] Performing Lab: [address] [address] VITAMIN B12 378 pg/mL 200-900 Aug 22, 2024 10:26 AM [facility] BASIC METABOLIC PANEL (non-fasting) Spe cimen Type: SERUM No comment entered. Ordering Provider: COURTNEY FAROOQ Report Released Date/Time: Aug 22, 2024 10:17 AM Reporting Lab: [address] [address] Performing Lab: [facility] [address] UREA NITROGEN 12 mg/dL 7-25 GLUCOSE 104 mg/dL H 65-100 SODIUM 136 mmol/L 135-145 POTASSIUM 4.7 mmol/L 3.5-5.0 CHLORIDE 106 mmol/L 100-110 CO2 18 meq/L L 20-30 CREATININE, Serum 1.15 mg/dL 0.50-1.40 eGFR(CKD-EPI 2020) 65 mL/min >60 Aug 22, 2024 10:26 AM [facility] LIVER FUNCTION Specimen Type: SERUM No comment entered. Ordering Provider: COURTNEY FAROOQ Report Released Date/Time: Aug 22, 2024 10:17 AM Reporting Lab: [address] [address] Performing Lab: [address] [address] PROTEIN,TOTAL 6.0 g/dL 6.0-8.3 ALBUMIN 3.1 g/dL L 3.5-5.0 ALKALINE PHOSPHATASE 138 U/L 40-150 AST 27 U/L 5-34 ALT 36 U/L BILIRUBIN, TOTAL 1.0 mg/dL 0.2-1.2 Aug 16, 2024 01:58 PM [facility] URINALYSIS Specimen Type: URINE Comment: If Glucose = >500 and Ketones are positive, please alert the Physician. Ordering Provider: COURTNEY FAROOQ Report Released Date/Time: Aug 08, 2024 01:49 PM Reporting Lab: [address] [address] Performing Lab: [address] [address] UA COLOR Light-Yellow Yellow UA APPEARANCE Clear Clear UA GLUCOSE Normal mg/dL Negative UA KETONES NEGATIVE mg/dL Negative UA BLOOD NEGATIVE mg/dL Negative UA PROTEIN 10 mg/dL Negative UA NITRITE NEGATIVE mg/dL Negative UA BILIRUBIN NEGATIVE mg/dL Negative UA SPECIFIC GRAVITY 1.017 1.016-1.02 2 UA pH 6.0 5.0-9.0 UA UROBILINOGEN Normal mg/dL <2.0 UA LEUKOCYTE TRACE Negative Aug 16, 2024 01:58 PM [facility] MICROALBUMIN CREATININE RATIO PANEL Specimen Type: URINE No comment entered. Ordering Provider: COURTNEY FAROOQ Report Released Date/Time: Aug 08, 2024 01:49 PM Reporting Lab: [facility] [address] [facility] [address] Performing Lab: [address] [address] MICROALBUMIN/CR EATININE RATIO 7.3 mg/g 0-29.9 MICROALBUMIN,QU ANTITATIVE 0.8 mg/dL RR UNAVAIL CREATININE URINE 109.38 mg/dL Aug 16, 2024 01:58 PM [facility] MICROSCOPIC AUTOMATED, URINE Specimen Type: URINE Comment: If Glucose = >500 and Ketones are positive, please alert the Physician. Ordering Provider: COURTNEY FAROOQ Report Released Date/Time: Aug 08, 2024 01:49 PM Reporting Lab: [address] [address] Performing Lab: [address] [address] UA WBC 0-5 /[HPF] 0-5 UA BACTERIA 1+ /[HPF] NoneObs UA MUCUS FEW /[LPF] Trace UA HYALINE CASTS 2-4 /[LPF] 0-2 UA RBC 3-5 /[HPF] 0-3 Aug 15, 2024 10:14 AM [facility] BASIC METABOLIC PANEL (fasting) Specimen Type: SERUM No comment entered. Ordering Provider: COURTNEY FAROOQ Report Released Date/Time: Aug 08, 2024 01:49 PM Reporting Lab: [address] [address] Performing Lab: [address] [address] UREA NITROGEN 28 mg/dL H 7-25 GLUCOSE 98 mg/dL 65-100 SODIUM 133 mmol/L L 135-145 POTASSIUM 5.3 mmol/L H 3.5-5.0 CHLORIDE 106 mmol/L 100-110 CO2 15 meq/L L 20-30 CREATININE, Serum 1.31 mg/dL 0.50-1.40 eGFR(CKD-EPI 2020) 55 mL/min L >60 Aug 15, 2024 10:14 AM [facility] LIPID PANEL FASTING Specimen Type: SERUM No comment entered. Ordering Provider: COURTNEY FAROOQ Report Released Date/Time: Aug 08, 2024 01:49 PM Reporting Lab: [address] [address] Performing Lab: [address] [address] CHOLESTEROL 69 mg/dL TRIGLYCERIDE 88 mg/dL 0-150 LDL calculated 16 mg/dL 0-129 CHOL/HDL 2.0 HDL CHOLESTEROL 35 mg/dL L 40-60 Aug 15, 2024 10:14 AM [facility] LIVER FUNCTION Specimen Type: SERUM No comment entered. Ordering Provider: COURTNEY FAROOQ Report Released Date/Time: Aug 08, 2024 01:49 PM Reporting Lab: [address] [address] Performing Lab: [address] [address] PROTEIN,TOTAL 6.2 g/dL 6.0-8.3 ALBUMIN 3.2 g/dL L 3.5-5.0 ALKALINE PHOSPHATASE 103 U/L 40-150 AST 17 U/L 5-34 ALT 25 U/L BILIRUBIN, TOTAL 0.9 mg/dL 0.2-1.2 Aug 15, 2024 10:14 AM [facility] HEMOGLOBIN A1C PANEL Specimen Type: BLOOD Comment: Values obtained from A1C measurements can vary. For atypical A1C assays, a reported value of 7.0 could actually be between 6.72 and 7.28 if measured by a reference method. A reported value of 9.0 could actually be between 8.73 and 9.27. Ref: http://www.ng sp.org/CAPdat a.asp Ordering Provider: COURTNEY FAROOQ Report Released Date/Time: Aug 08, 2024 01:49 PM Reporting Lab: [address] [address] Performing Lab: [facility] [address] [facility] [address] HEMOGLOBIN A1C 6.7 H 4.0-5.6 Aug 15, 2024 10:14 AM [facility] CBC AND DIFF (AUTO) Specimen Type: BLOOD No comment entered. Ordering Provider: COURTNEY FAROOQ Report Released Date/Time: Aug 08, 2024 01:49 PM Reporting Lab: [facility] [address] [facility] [address] Performing Lab: [facility] [address] [facility] [address] WBC 7.54 10*3/uL 4.50-11.00 RBC 3.63 10*6/uL [...] 0.5 0.0-0.7 IMMATURE GRAN, ABS 0.04 10*3/uL 0.00-0.06 NRBC % 0.0 0.0-0.0 NRBC, ABS 0.00 10*3/uL 0.00-0.00 Aug 15, 2024 10:14 AM [facility] TSH Specimen Type: SERUM No comment entered. Ordering Provider: COURTNEY FAROOQ Report Released Date/Time: Aug 08, 2024 01:49 PM Reporting Lab: [facility] [address] [facility] [address] Performing Lab: [facility] [address] [facility] [address] TSH 1.84 u[IU]/mL 0.35-5.00 Aug 15, 2024 10:14 AM [facility] CALCIUM Specimen Type: SERUM No comment entered. Ordering Provider: COURTNEY FAROOQ Report Released Date/Time: Aug 08, 2024 01:49 PM Reporting Lab: [facility] [address] [facility] [address] Performing Lab: [address] [address] CALCIUM 8.5 mg/dL 8.5-10.2 Aug 15, 2024 10:14 AM [facility] URIC ACID Specimen Type: SERUM No comment entered. Ordering Provider: COURTNEY FAROOQ Report Released Date/Time: Aug 08, 2024 01:49 PM Reporting Lab: [facility] [address] [facility] [address] Performing Lab: [address] [address] URIC ACID 7.9 mg/dL H 3.5-7.2 Aug 15, 2024 10:14 AM [facility] VITAMIN D (25-OH) Specimen Type: SERUM No comment entered. Ordering Provider: COURTNEY FAROOQ Report Released Date/Time: Aug 08, 2024 01:49 PM Reporting Lab: [address] [address] Performing Lab: [address] [address] VITAMIN D (25-OH) <13 ng/mL L 20-50 Social History: Smoking Status (Most current) and Tobacco Use (All prior to encounter date) This section includes the most current, and the historical, smoking and tobacco- related health factors from the [place] facility where the Encounter took place. Current Smoking Status This section includes the most current smoking, or tobacco-related health factor, from the [place] facility where the Encounter took place. Date/Time Current Smoking Status Comment Facil ity Jun 03, 2023 08:58 AM [place]-TOBACCO FORMER USER [facility] Tobacco Use History This section includes a history of the smoking, or tobacco-related health factors, that were collected on or before the date of the Encounter. The data comes from the [place] facility where the Encounter took place. Date/Time Smoking Status/Tobacco Use Comment F acility Jun 03, 2023 08:58 AM [place]-TOBACCO QUIT 15 YRS OR MORE [facility] Advance Directives: All historical and current Section Date Range: From patient's date of to the date document was created. This section includes ALL of a patient's completed or amended [place] Advance and Rescinded Directives. The entries below indicate that a directive exists for the patient, but an actual copy is not included with this document. The data comes from all [place] facilities. Date Advance Directives Provider Source Jul 15, 2023 ADVANCE DIRECTIVE ROGER PEDRAZA Jun 30, 2019 ADVANCE DIRECTIVE CASSIE POWELL [facility] Encounter Notes: All associated encounter notes This section contains the clinical notes associated to the Encounter. Date/Time Encounter Note(s) Provider Source Aug 08, 2024 08:44 AM PRIMARY [facility]ARE [facility] MESSAGING: LOCAL TITLE: PRIMARY CARE SECURE MESSAGING STANDARD TITLE: PRIMARY CARE SECURE MESSAGING DATE OF NOTE: AUG 08, 2024@08:44 ENTRY DATE: AUG 08, 2024@08:44:52 AUTHOR: JHON SIERRA COSIGNER: URGENCY: STATUS: COMPLETED ------Original Message ------ Sent: 08/07/2024 11:06 AM ET From: FATEMEH GOMEZ To: RAMYA PEREZ [facility] Subject: Medication:Need a new referral I need a new prescription for the bed pads 23x36 for incontinence. I know they changed his visit with the primary care doctor so can you please put in an order again for 5 refills like before. Thank you Maria C Gomez /inge/ JHON MORRIS Signed: 08/08/2024 08:44 Receipt Acknowledged By: 08/08/2024 09:50 /inge/ MAXIMILIANO KUMARI LPN LPN 08/09/2024 15:50 /inge/ JANINA ROWE RN REGISTERED NURSE [facility] [place] [facility]
--- OUTSIDE RECORDS SUMMARY | 2024-10-17 15:26 | XMS_ITS ---
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 Organization [facility] [place] Address [address] [place] [address] Care Team Providers Care Dispatcher Street Department Name Role Phone GURPREET PEREZ Primary Care [...] Harding's Name Patient's Relationship to Policy Harding [facility] PL[facility] (WNR) MEDICARE ADVANTAGE [facility] (WNR) Oct 25, 2011 [facility] [id number] FATEMEH GOMEZ PATIENT Selected Encounter This section includes the information on record at [place] for the Encounter. Date/Time Encounter Type Encounter Description Reason Pro vider Source Aug 14, 2024 09:27 AM Outpatient Encounter ADMIN PAT ACTIVTIES (MASNONCT) IHE Encounter Template Text not used by [place] Plan of Treatment: Future Appointments (+ 6 [...] 20 appointments. The data comes from all [place] treatment facilities. Appointment Date/Time Appointment Type Appointme nt Facility Name Aug 22, 2024 09:30 AM AMBULATORY - MEDICINE [facility] Aug 29, 2024 08:00 AM [facility]ULATORY - MED[facility]INE [facility] Sep 20, 2024 09:00 AM AMBULATORY - MEDICINE [facility] Oct 03, 2024 11:30 AM [facility] Active, Pending, and Scheduled Orders This section includes a listing of several types of active, pending, and scheduled orders, including clinic medications orders, diagnostic test orders, procedure orders and consult orders; where the start date of the order is 45 days before the date of the Encounter or 45 days after the date of theEncounter. The data comes from all [facility]. Test Date/Time Test Type Test Details Facility Name Aug 28, 2024 04:23 PM Consult Order COMMUNITY CARE-GEC NON-SKILLED HOME HEALTH AIDE [facility] Occupational Health Coordinator's Choice [facility] Sep 20, 2024 10:06 AM Consult Order NUTRITION ASSESSMENT/EDUCATION/SPO PC OUTPT [facility] Occupational Health Coordinator's [facility] Lab Results: +/- 30 days of the encounter This section includes the Chemistry and Hematology Lab Results on record with [place] for the patient. Radiology Reports and Pathology Reports are provided separately, in subsequent sections. Lab Results This section contains the Chemistry/Hematology Results that were resulted 30 days before or 30 daysafter the date of the Encounter. Date/Time Source Result Type Result - Unit Interpretation Reference Range Comment Aug 22, 2024 10:26 AM [place] FOLATE (WROX) Specimen Type: SERUM No comment entered. Ordering Provider: COURTNEY FAROOQ Report Released Date/Time: Aug 22, 2024 10:17 AM Reporting Lab: [facility] [address] [facility] [address] Performing Lab: [facility] [address] [facility] [address] FOLATE (WROX) 3.90 ng/mL L >5.2 Aug 22, 2024 10:26 AM [place] RETICULOCYTES Specimen Type: BLOOD Comment: Smear reviewed, auto CBC w/Diff accepted. Ordering Provider: COURTNEY FAROOQ Report Released Date/Time: Aug 22, 2024 10:17 AM Reporting Lab: [address] [address] Performing Lab: [address] [address] RETIC % 2.6 H 0.6-2.0 RETIC, ABS 91.6 10*3/uL H 30.0-90.0 RET-HE % 29.6 27.9-42.0 Aug 22, 2024 10:26 AM [place] IRON & TIBC PANEL Specimen Type: SERUM No comment entered. Ordering Provider: COURTNEY FAROOQ Report Released Date/Time: Aug 22, 2024 10:17 AM Reporting Lab: [address] [address] Performing Lab: [address] [address] TIBC 210 ug/dL 204-475 IRON 43 ug/dL 40-160 Transferrin Saturation 20.5 20.0-50.0 Transferrin (TRF) 159 mg/dL L 200-360 Aug 22, 2024 10:26 AM [place] CBC AND DIFF (AUTO) Specimen Type: BLOOD Comment: Smear reviewed, auto CBC w/Diff accepted. Ordering Provider: COURTNEY FAROOQ Report Released Date/Time: Aug 22, 2024 10:17 AM Reporting Lab: [address] [address] Performing Lab: [address] [address] WBC 7.35 10*3/uL 4.50-11.00 RBC 3.51 10*6/uL [...] H 0.00-0.00 Aug 22, 2024 10:26 AM [place] FERRITIN Specimen Type: SERUM No comment entered. Ordering Provider: COURTNEY FAROOQ Report Released Date/Time: Aug 22, 2024 10:17 AM Reporting Lab: [address] [address] Performing Lab: [address] [address] FERRITIN 1130 ng/mL H 20-300 Aug 22, 2024 10:26 AM [place] VITAMIN B12 Specimen Type: SERUM No comment entered. Ordering Provider: COURTNEY FAROOQ Report Released Date/Time: Aug 22, 2024 10:17 AM Reporting Lab: [address] [address] Performing Lab: [address] [address] VITAMIN B12 378 pg/mL 200-900 Aug 22, 2024 10:26 AM [place] BASIC METABOLIC PANEL (non-fasting) Spe cimen Type: SERUM No comment entered. Ordering Provider: COURTNEY FAROOQ Report Released Date/Time: Aug 22, 2024 10:17 AM Reporting Lab: [address] [address] Performing Lab: [address] [address] UREA NITROGEN 12 mg/dL 7-25 GLUCOSE 104 mg/dL H 65-100 SODIUM 136 mmol/L 135-145 POTASSIUM 4.7 mmol/L 3.5-5.0 CHLORIDE 106 mmol/L 100-110 CO2 18 meq/L L 20-30 CREATININE, Serum 1.15 mg/dL 0.50-1.40 eGFR(CKD-EPI 2020) 65 mL/min >60 Aug 22, 2024 10:26 AM [place] LIVER FUNCTION Specimen Type: SERUM No comment entered. Ordering Provider: COURTNEY FAROOQ Report Released Date/Time: Aug 22, 2024 10:17 AM Reporting Lab: [address] [address] Performing Lab: [address] [address] PROTEIN,TOTAL 6.0 g/dL 6.0-8.3 ALBUMIN 3.1 g/dL L 3.5-5.0 ALKALINE PHOSPHATASE 138 U/L 40-150 AST 27 U/L 5-34 ALT 36 U/L BILIRUBIN, TOTAL 1.0 mg/dL 0.2-1.2 Aug 16, 2024 01:58 PM [facility] URINALYSIS Specimen Type: URINE Comment: If Glucose = >500 and Ketones are positive, please alert the Physician. Ordering Provider: COURTNEY FAROOQ Report Released Date/Time: Aug 08, 2024 01:49 PM Reporting Lab: [address] [address] Performing Lab: [address] [address] UA COLOR Light-Yellow Yellow UA APPEARANCE Clear Clear UA GLUCOSE Normal mg/dL Negative UA KETONES NEGATIVE mg/dL Negative UA BLOOD NEGATIVE mg/dL Negative UA PROTEIN 10 mg/dL Negative UA NITRITE NEGATIVE mg/dL Negative UA BILIRUBIN NEGATIVE mg/dL Negative UA SPECIFIC GRAVITY 1.017 1.016-1.02 2 UA pH 6.0 5.0-9.0 UA UROBILINOGEN Normal mg/dL <2.0 UA LEUKOCYTE TRACE Negative Aug 16, 2024 01:58 PM [facility] MICROALBUMIN CREATININE RATIO PANEL Specimen Type: URINE No comment entered. Ordering Provider: COURTNEY FAROOQ Report Released Date/Time: Aug 08, 2024 01:49 PM Reporting Lab: [facility] [address] [facility] [address] Performing Lab: [address] [address] MICROALBUMIN/CR EATININE RATIO 7.3 mg/g 0-29.9 MICROALBUMIN,QU ANTITATIVE 0.8 mg/dL RR UNAVAIL CREATININE URINE 109.38 mg/dL Aug 16, 2024 01:58 PM [facility] MICROSCOPIC AUTOMATED, URINE Specimen Type: URINE Comment: If Glucose = >500 and Ketones are positive, please alert the Physician. Ordering Provider: COURTNEY FAROOQ Report Released Date/Time: Aug 08, 2024 01:49 PM Reporting Lab: [address] [address] Performing Lab: [address] [address] UA WBC 0-5 /[HPF] 0-5 UA BACTERIA 1+ /[HPF] NoneObs UA MUCUS FEW /[LPF] Trace UA HYALINE CASTS 2-4 /[LPF] 0-2 UA RBC 3-5 /[HPF] 0-3 Aug 15, 2024 10:14 AM [facility] BASIC METABOLIC PANEL (fasting) Specimen Type: SERUM No comment entered. Ordering Provider: COURTNEY FAROOQ Report Released Date/Time: Aug 08, 2024 01:49 PM Reporting Lab: [address] [address] Performing Lab: [address] [address] UREA NITROGEN 28 mg/dL H 7-25 GLUCOSE 98 mg/dL 65-100 SODIUM 133 mmol/L L 135-145 POTASSIUM 5.3 mmol/L H 3.5-5.0 CHLORIDE 106 mmol/L 100-110 CO2 15 meq/L L 20-30 CREATININE, Serum 1.31 mg/dL 0.50-1.40 eGFR(CKD-EPI 2020) 55 mL/min L >60 Aug 15, 2024 10:14 AM [facility] LIPID PANEL FASTING Specimen Type: SERUM No comment entered. Ordering Provider: COURTNEY FAROOQ Report Released Date/Time: Aug 08, 2024 01:49 PM Reporting Lab: [address] [address] Performing Lab: [address] [address] CHOLESTEROL 69 mg/dL TRIGLYCERIDE 88 mg/dL 0-150 LDL calculated 16 mg/dL 0-129 CHOL/HDL 2.0 HDL CHOLESTEROL 35 mg/dL L 40-60 Aug 15, 2024 10:14 AM [facility] LIVER FUNCTION Specimen Type: SERUM No comment entered. Ordering Provider: COURTNEY FAROOQ Report Released Date/Time: Aug 08, 2024 01:49 PM Reporting Lab: [facility] [address] [facility] [address] Performing Lab: [address] [address] PROTEIN,TOTAL 6.2 g/dL 6.0-8.3 ALBUMIN 3.2 g/dL L 3.5-5.0 ALKALINE PHOSPHATASE 103 U/L 40-150 AST 17 U/L 5-34 ALT 25 U/L BILIRUBIN, TOTAL 0.9 mg/dL 0.2-1.2 Aug 15, 2024 10:14 AM [facility] HEMOGLOBIN A1C PANEL Specimen Type: BLOOD Comment: [...] Aug 08, 2024 01:49 PM Reporting Lab: [address] [address] Performing Lab: [facility] [address] [facility] [address] HEMOGLOBIN A1C 6.7 H 4.0-5.6 Aug 15, 2024 10:14 AM [facility] CBC AND DIFF (AUTO) Specimen Type: BLOOD No comment entered. Ordering Provider: COURTNEY FAROOQ Report Released Date/Time: Aug 08, 2024 01:49 PM Reporting Lab: [facility] [address] [facility] [address] Performing Lab: [facility] [address] [facility] [address] WBC 7.54 10*3/uL 4.50-11.00 RBC 3.63 10*6/uL [...] 10*3/uL 0.00-0.00 Aug 15, 2024 10:14 AM [facility] TSH Specimen Type: SERUM No comment entered. Ordering Provider: COURTNEY FAROOQ Report Released Date/Time: Aug 08, 2024 01:49 PM Reporting Lab: [facility] [address] [facility] [address] Performing Lab: [facility] [address] [facility] [address] TSH 1.84 u[IU]/mL 0.35-5.00 Aug 15, 2024 10:14 AM [facility] CALCIUM Specimen Type: SERUM No comment entered. Ordering Provider: COURTNEY FAROOQ Report Released Date/Time: Aug 08, 2024 01:49 PM Reporting Lab: [facility] [address] [facility] [address] Performing Lab: [address] [address] CALCIUM 8.5 mg/dL 8.5-10.2 Aug 15, 2024 10:14 AM [facility] URIC ACID Specimen Type: SERUM No comment entered. Ordering Provider: COURTNEY FAROOQ Report Released Date/Time: Aug 08, 2024 01:49 PM Reporting Lab: [facility] [address] [facility] [address] Performing Lab: [address] [address] URIC ACID 7.9 mg/dL H 3.5-7.2 Aug 15, 2024 10:14 AM [facility] VITAMIN D (25-OH) Specimen Type: SERUM No comment entered. Ordering Provider: COURTNEY FAROOQ Report Released Date/Time: Aug 08, 2024 01:49 PM Reporting Lab: [facility] [address] [facility] [address] Performing Lab: [address] [address] VITAMIN D (25-OH) <13 ng/mL L 20-50 Social History: Smoking Status (Most current) and Tobacco Use (All prior to encounter date) This section includes the most current, and the historical, smoking and tobacco- related health factors from the [place] facility where the Encounter took place. Current Smoking Status This section includes the most current smoking, or tobacco-related health factor, from the [place] facility where the Encounter took place. Date/Time Current Smoking Status Comment Facil ity Jun 03, 2023 08:58 AM [place]-TOBACCO FORMER USER [facility] Tobacco Use History This section includes a history of the smoking, or tobacco-related health factors, that were collected on or before the date of the Encounter. The data comes from the [place] facility where the Encounter took place. Date/Time Smoking Status/Tobacco Use Comment F acility Jun 03, 2023 08:58 AM [place]-TOBACCO QUIT 15 YRS OR MORE [facility] Advance Directives: All historical and current Section Date Range: From patient's date of to the date document was created. This section includes ALL of a patient's completed or amended [place] Advance and Rescinded Directives. The entries below indicate that a directive exists for the patient, but an actual copy is not included with this document. The data comes from all [place] facilities. Date Advance Directives Provider Source Jul 15, 2023 ADVANCE DIRECTIVE ROGER PEDRAZA Jun 30, 2019 ADVANCE DIRECTIVE CASSIE POWELL [facility] Encounter Notes: All associated encounter notes This section contains the clinical notes associated to the Encounter. Date/Time Encounter Note(s) Provider Source Aug 14, 2024 09:27 AM ADMINISTRATIVE NOTE: LOCAL TITLE: CCC: SCHEDULING ADMINISTRATION STANDARD TITLE: ADMINISTRATIVE NOTE DATE OF NOTE: AUG 14, 2024@09:27:42 ENTRY DATE: AUG 14, 2024@09:27:42 AUTHOR: KIERA MCNULTY EXP COSIGNER: URGENCY: STATUS: COMPLETED CCC: SCHEDULING ADMINISTRATION Has ADDENDA Patient Demographics Patient Name: FATEMEH GOMEZ Patient Primary Phone: [phone] Patient Primary [address]: [address] [place] [address] [place] [id number] Patient : 1945 Patient Age: 78 Caller/Recipient Relation to Patient: Other If Other Describe Relation to Patient: Caller Name: Maria C Administrative Administrative Note Reason: Other Administrative Note Comments: 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 She has a step in shower but he is giving some difficulty getting in the shower. She would like to have something that he could sit on and be rotated or slid into the shower. She was told before about the justina to remodel the bathroom. She is thinking about that because he is going to eventually be in a wheelchair permanently and is thinking the shower should be changed from a step in to a walk in. She reports the bathroom is small and getting someone in to help him is difficult. She is going to be installing grab bars in the bathroom because it has been hard to get him in the room to use the shower or toilet safely. She can be reached at [phone] IMPORTANT: This note was created by [facility] Clinical Contact Center staff. Please do not alert the staff member by adding them as a signer for future communications. Alerts are not monitored by this user. /inge/ KIERA KRUSE 1 [facility] AMSA Signed: 08/14/2024 09:27 Receipt Acknowledged By: 08/17/2024 15:39 /es/ MAXIMILIANO KUMARI LPN LPN 08/15/2024 09:22 /inge/ JANINA ROWE RN REGISTERED NURSE 08/15/2024 ADDENDUM STATUS: COMPLETED Spoke with 's spouse. She is requesting a [facility] justina to remodel their bathroom, but in the meantime she is asking for a Swivel Shower Chair For Elderly for concerns of 's safety when getting into the shower from the wheelchair. The Swivel Shower Chair For Elderly seems to be available on [employer] but NOT on the [employer] website. OT consult placed asking OT to kindly assist with assessing and recommending/providing the necessary equipment. /inge/ JANINA ROWE RN REGISTERED NURSE Signed: 08/15/2024 09:21 KIERA MCNULTY [place] [facility]
--- OUTSIDE RECORDS SUMMARY | 2024-10-17 15:26 | XMS_ITS | Encounter Summary ---
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 Organization [place] Address [address] [place] [address] Care Team Providers Care Technical Support Engineer Name Role Phone GURPREET PEREZ Primary Care [...] Harding's Name Patient's Relationship to Policy Harding [facility] PLAN [facility] (WNR) MEDICARE ADVANTAGE [facility] (WNR) Oct 25, 2011 [facility] [id number] FATEMEH GOMEZ PATIENT Selected Encounter This section includes the information on record at [place] for the Encounter. Date/Time Encounter Type Encounter Description Reason Pro vider Source Jun 27, 2024 12:00 AM Outpatient Encounter COMMUNITY CARE CONSULT IHE Encounter Template Text not used by [...] 05, 2024 08:00 AM AMBULATORY - MEDICINE [facility] Aug 22, 2024 09:30 AM AMBULATORY - MEDICINE [facility] Aug 29, 2024 08:00 AM AMBULATORY - MEDICINE [facility] Sep 20, 2024 09:00 AM AMBULATORY - MEDICINE [facility] Oct 03, 2024 11:30 AM AMBULATORY - MEDICINE [facility] Social History: Smoking Status (Most current) and [...] 03, 2023 08:58 AM [place]-TOBACCO FORMER USER [facility] Tobacco Use History This section includes a history of the smoking, or tobacco-related health factors, that were collected on or before the date of the Encounter. The data comes from the [place] facility where the Encounter took place. Date/Time Smoking Status/Tobacco Use Comment F acility Jun 03, 2023 08:58 AM [place]-TOBACCO QUIT 15 YRS OR MORE [facility] Advance Directives: All historical and current Section [...] Jun 30, 2019 ADVANCE DIRECTIVE CASSIE POWELL [facility] Encounter Notes: All associated encounter notes This section contains the clinical notes associated to the Encounter. Date/Time Encounter Note(s) Provider Source Jun 27, 2024 12:00 AM NONVA CONSULT: LOCAL TITLE: COMMUNITY CARE-CONSULT RESULT NOTE STANDARD TITLE: NONVA CONSULT DATE OF NOTE: JUN 27, 2024 ENTRY DATE: JUL 25, 2024@14:46:35 AUTHOR: TRE OLIVEIRA EXP COSIGNER: URGENCY: STATUS: COMPLETED VistA Imaging - Scanned Document SCANNED DOCUMENT SIGNATURE NOT REQUIRED Electronically Filed: 07/25/2024 by: TRE MORGAN CNTRL [facility]N [facility]
--- OUTSIDE RECORDS SUMMARY | 2024-10-17 15:26 | XMS_ITS ---
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 [place] [facility] [place] Address [address] [place] [address] Care Team Providers Care Superintendent Renting Managing Name Role Phone GURPREET PEREZ Primary Care [...] Harding's Name Patient's Relationship to Policy Harding [facility] PLAN [facility] (WNR) MEDICARE ADVANTAGE [facility] (WNR) Oct 25, 2011 [facility] [id number] FATEMEH GOMEZ PATIENT Selected Encounter This section includes the information on record at [place] for the Encounter. Date/Time Encounter Type Encounter Description Reason Pro vider Source Jul 31, 2024 11:02 AM Outpatient Encounter ADMIN PAT ACTIVTIES (MASNONCT) IHE Encounter Template Text not used by [place] Plan of Treatment: Future Appointments (+ 6 [...] 20 appointments. The data comes from all [place] treatment [facility]. Appointment Date/Time Appointment Type Appointme nt Facility Name Aug 05, 2024 08:00 AM [facility] Aug 22, 2024 09:30 AM [facility]ORY [facility] MEDICINE [facility] Aug 29, 2024 08:00 AM [facility] Sep 20, 2024 09:00 AM AMBULATORY - MEDICINE [facility] Oct 03, 2024 11:30 AM [facility] Active, Pending, and Scheduled Orders This section includes a listing of several types of active, pending, and scheduled orders, including clinic medications orders, diagnostic test orders, procedure orders and consult orders; where the start date of the order is 45 days before the date of the Encounter or 45 days after the date of theEncounter. The data comes from all [facility]. Test Date/Time Test Type Test Details Facility Name Aug 28, 2024 04:23 PM Consult Order [facility] NON-SKILLED HOME HEALTH AIDE Cons [employer] [facility] Lab Results: +/- 30 days of the encounter This section includes the Chemistry and Hematology Lab Results on record with [place] for the patient. Radiology Reports and Pathology Reports are provided separately, in subsequent sections. Lab Results This section contains the Chemistry/Hematology Results that were resulted 30 days before or 30 daysafter the date of the Encounter. Date/Time Source Result Type Result - Unit Interpretation Reference Range Comment Aug 22, 2024 10:26 AM [place] FOLATE (WROX) Specimen Type: SERUM No comment entered. Ordering Provider: COURTNEY FAROOQ Report Released Date/Time: Aug 22, 2024 10:17 AM Reporting Lab: [facility] [address] [facility] [address] Performing Lab: [facility] [address] [facility] [address] FOLATE (WROX) 3.90 ng/mL L >5.2 Aug 22, 2024 10:26 AM [place] RETICULOCYTES Specimen Type: BLOOD Comment: Smear reviewed, auto CBC w/Diff accepted. Ordering Provider: COURTNEY FAROOQ Report Released Date/Time: Aug 22, 2024 10:17 AM Reporting Lab: [address] [address] Performing Lab: [address] [address] RETIC % 2.6 H 0.6-2.0 RETIC, ABS 91.6 10*3/uL H 30.0-90.0 RET-HE % 29.6 27.9-42.0 Aug 22, 2024 10:26 AM [place] IRON & TIBC PANEL Specimen Type: SERUM No comment entered. Ordering Provider: COURTNEY FAROOQ Report Released Date/Time: Aug 22, 2024 10:17 AM Reporting Lab: [address] [address] Performing Lab: [address] [address] TIBC 210 ug/dL 204-475 IRON 43 ug/dL 40-160 Transferrin Saturation 20.5 20.0-50.0 Transferrin (TRF) 159 mg/dL L 200-360 Aug 22, 2024 10:26 AM [place] CBC AND DIFF (AUTO) Specimen Type: BLOOD Comment: Smear reviewed, auto CBC w/Diff accepted. Ordering Provider: COURTNEY FAROOQ Report Released Date/Time: Aug 22, 2024 10:17 AM Reporting Lab: [address] [address] Performing Lab: [address] [address] WBC 7.35 10*3/uL 4.50-11.00 RBC 3.51 10*6/uL [...] H 0.00-0.00 Aug 22, 2024 10:26 AM [place] FERRITIN Specimen Type: SERUM No comment entered. Ordering Provider: COURTNEY FAROOQ Report Released Date/Time: Aug 22, 2024 10:17 AM Reporting Lab: [address] [address] Performing Lab: [address] [address] FERRITIN 1130 ng/mL H 20-300 Aug 22, 2024 10:26 AM [place] VITAMIN B12 Specimen Type: SERUM No comment entered. Ordering Provider: COURTNEY FAROOQ Report Released Date/Time: Aug 22, 2024 10:17 AM Reporting Lab: [address] [address] Performing Lab: [address] [address] VITAMIN B12 378 pg/mL 200-900 Aug 22, 2024 10:26 AM [place] BASIC METABOLIC PANEL (non-fasting) Spe cimen Type: SERUM No comment entered. Ordering Provider: COURTNEY FAROOQ Report Released Date/Time: Aug 22, 2024 10:17 AM Reporting Lab: [address] [address] Performing Lab: [address] [address] UREA NITROGEN 12 mg/dL 7-25 GLUCOSE 104 mg/dL H 65-100 SODIUM 136 mmol/L 135-145 POTASSIUM 4.7 mmol/L 3.5-5.0 CHLORIDE 106 mmol/L 100-110 CO2 18 meq/L L 20-30 CREATININE, Serum 1.15 mg/dL 0.50-1.40 eGFR(CKD-EPI 2020) 65 mL/min >60 Aug 22, 2024 10:26 AM [place] LIVER FUNCTION Specimen Type: SERUM No comment entered. Ordering Provider: COURTNEY FAROOQ Report Released Date/Time: Aug 22, 2024 10:17 AM Reporting Lab: [address] [address] Performing Lab: [address] [address] PROTEIN,TOTAL 6.0 g/dL 6.0-8.3 ALBUMIN 3.1 g/dL L 3.5-5.0 ALKALINE PHOSPHATASE 138 U/L 40-150 AST 27 U/L 5-34 ALT 36 U/L BILIRUBIN, TOTAL 1.0 mg/dL 0.2-1.2 Aug 16, 2024 01:58 PM [facility] URINALYSIS Specimen Type: URINE Comment: If Glucose = >500 and Ketones are positive, please alert the Physician. Ordering Provider: COURTNEY FAROOQ Report Released Date/Time: Aug 08, 2024 01:49 PM Reporting Lab: [address] [address] Performing Lab: [address] [address] UA COLOR Light-Yellow Yellow UA APPEARANCE Clear Clear UA GLUCOSE Normal mg/dL Negative UA KETONES NEGATIVE mg/dL Negative UA BLOOD NEGATIVE mg/dL Negative UA PROTEIN 10 mg/dL Negative UA NITRITE NEGATIVE mg/dL Negative UA BILIRUBIN NEGATIVE mg/dL Negative UA SPECIFIC GRAVITY 1.017 1.016-1.02 2 UA pH 6.0 5.0-9.0 UA UROBILINOGEN Normal mg/dL <2.0 UA LEUKOCYTE TRACE Negative Aug 16, 2024 01:58 PM [facility] MICROALBUMIN CREATININE RATIO PANEL Specimen Type: URINE No comment entered. Ordering Provider: COURTNEY FAROOQ Report Released Date/Time: Aug 08, 2024 01:49 PM Reporting Lab: [facility] [address] [address] Performing Lab: [address] [address] MICROALBUMIN/CR EATININE RATIO 7.3 mg/g 0-29.9 MICROALBUMIN,QU ANTITATIVE 0.8 mg/dL RR UNAVAIL CREATININE URINE 109.38 mg/dL Aug 16, 2024 01:58 PM [facility] MICROSCOPIC AUTOMATED, URINE Specimen Type: URINE Comment: If Glucose = >500 and Ketones are positive, please alert the Physician. Ordering Provider: COURTNEY FAROOQ Report Released Date/Time: Aug 08, 2024 01:49 PM Reporting Lab: [facility] [address] [address] Performing Lab: [facility] [address] [address] UA WBC 0-5 /[HPF] 0-5 UA BACTERIA 1+ /[HPF] NoneObs UA MUCUS FEW /[LPF] Trace UA HYALINE CASTS 2-4 /[LPF] 0-2 UA RBC 3-5 /[HPF] 0-3 Aug 15, 2024 10:14 AM [facility] BASIC METABOLIC PANEL (fasting) Specimen Type: SERUM No comment entered. Ordering Provider: COURTNEY FAROOQ Report Released Date/Time: Aug 08, 2024 01:49 PM Reporting Lab: [facility] [address] [address] Performing Lab: [address] [address] UREA NITROGEN 28 mg/dL H 7-25 GLUCOSE 98 mg/dL 65-100 SODIUM 133 mmol/L L 135-145 POTASSIUM 5.3 mmol/L H 3.5-5.0 CHLORIDE 106 mmol/L 100-110 CO2 15 meq/L L 20-30 CREATININE, Serum 1.31 mg/dL 0.50-1.40 eGFR(CKD-EPI 2020) 55 mL/min L >60 Aug 15, 2024 10:14 AM [facility] LIPID PANEL FASTING Specimen Type: SERUM No comment entered. Ordering Provider: COURTNEY FAROOQ Report Released Date/Time: Aug 08, 2024 01:49 PM Reporting Lab: [address] [address] Performing Lab: [address] [address] CHOLESTEROL 69 mg/dL TRIGLYCERIDE 88 mg/dL 0-150 LDL calculated 16 mg/dL 0-129 CHOL/HDL 2.0 HDL CHOLESTEROL 35 mg/dL L 40-60 Aug 15, 2024 10:14 AM [facility] LIVER FUNCTION Specimen Type: SERUM No comment entered. Ordering Provider: COURTNEY FAROOQ Report Released Date/Time: Aug 08, 2024 01:49 PM Reporting Lab: [address] [address] Performing Lab: [address] [address] PROTEIN,TOTAL 6.2 g/dL 6.0-8.3 ALBUMIN 3.2 g/dL L 3.5-5.0 ALKALINE PHOSPHATASE 103 U/L 40-150 AST 17 U/L 5-34 ALT 25 U/L BILIRUBIN, TOTAL 0.9 mg/dL 0.2-1.2 Aug 15, 2024 10:14 AM [facility] HEMOGLOBIN A1C PANEL Specimen Type: BLOOD [...] Aug 08, 2024 01:49 PM Reporting Lab: [address] [address] Performing Lab: [facility] [address] [facility] [address] HEMOGLOBIN A1C 6.7 H 4.0-5.6 Aug 15, 2024 10:14 AM [facility] CBC AND DIFF (AUTO) Specimen Type: BLOOD No comment entered. Ordering Provider: COURTNEY FAROOQ Report Released Date/Time: Aug 08, 2024 01:49 PM Reporting Lab: [facility] [address] [facility] [address] Performing Lab: [facility] [address] [facility] [address] WBC 7.54 10*3/uL 4.50-11.00 RBC 3.63 10*6/uL [...] 10*3/uL 0.00-0.00 Aug 15, 2024 10:14 AM [facility] TSH Specimen Type: SERUM No comment entered. Ordering Provider: COURTNEY FAROOQ Report Released Date/Time: Aug 08, 2024 01:49 PM Reporting Lab: [facility] [address] [address] Performing Lab: [facility] [address] [address] TSH 1.84 u[IU]/mL 0.35-5.00 Aug 15, 2024 10:14 AM [facility] URIC ACID Specimen Type: SERUM No comment entered. Ordering Provider: COURTNEY FAROOQ Report Released Date/Time: Aug 08, 2024 01:49 PM Reporting Lab: [facility] [address] [facility] [address] Performing Lab: [address] [address] URIC ACID 7.9 mg/dL H 3.5-7.2 Aug 15, 2024 10:14 AM [facility] CALCIUM Specimen Type: SERUM No comment entered. Ordering Provider: COURTNEY FAROOQ Report Released Date/Time: Aug 08, 2024 01:49 PM Reporting Lab: [facility] [address] [address] Performing Lab: [address] [address] CALCIUM 8.5 mg/dL 8.5-10.2 Aug 15, 2024 10:14 AM [facility] VITAMIN D (25-[place]) Specimen Type: SERUM No comment entered. Ordering Provider: COURTNEY FAROOQ Report Released Date/Time: Aug 08, 2024 01:49 PM Reporting Lab: [facility] [address] [address] Performing Lab: [address] [address] VITAMIN D (25-OH) <13 ng/mL L 20-50 Social History: Smoking Status (Most current) and Tobacco Use (All prior to encounter date) This section includes the most current, and the historical, smoking and tobacco- related health factors from the [place] facility where the Encounter took place. Current Smoking Status This section includes the most current smoking, or tobacco-related health factor, from the [place] facility where the Encounter took place. Date/Time Current Smoking Status Comment Facil ity Jun 03, 2023 08:58 AM [place]-TOBACCO FORMER USER [facility] Tobacco Use History This section includes a history of the smoking, or tobacco-related health factors, that were collected on or before the date of the Encounter. The data comes from the [place] facility where the Encounter took place. Date/Time Smoking Status/Tobacco Use Comment F acility Jun 03, 2023 08:58 AM [place]-TOBACCO QUIT 15 YRS OR MORE [facility] Advance Directives: All historical and current Section Date Range: From patient's date of to the date document was created. This section includes ALL of a patient's completed or amended [place] Advance and Rescinded Directives. The entries below indicate that a directive exists for the patient, but an actual copy is not included with this document. The data comes from all [place] facilities. Date Advance Directives Provider Source Jul 15, 2023 ADVANCE DIRECTIVE ROGER PEDRAZA Jun 30, 2019 ADVANCE DIRECTIVE CASSIE POWELL [facility] Encounter Notes: All associated encounter notes This section contains the clinical notes associated to the Encounter. Date/Time Encounter Note(s) Provider Source Jul 31, 2024 11:02 AM ADMINISTRATIVE NOT E: LOCAL TITLE: CCC: SCHEDULING ADMINISTRATION STANDARD TITLE: ADMINISTRATIVE NOTE DATE OF NOTE: JUL 31, 2024@11:02:58 ENTRY DATE: JUL 31, 2024@11:02:59 AUTHOR: CON YOUSSEF COSIGNER: URGENCY: STATUS: COMPLETED Patient Demographics Patient Name: FATEMEH GOMEZ Patient Primary Phone: [phone] Patient Primary [address] [address] [place] [address] FIORDALIZA Khan [id number] Patient : 1945 Patient Age: 78 Caller/Recipient Relation to Patient: Other If Other Describe Relation to Patient: spouse Caller Name: Maria C Administrative Administrative Note Reason: Outside Care Performed Administrative Note Comments: Veterans spouse asks for return call to be scheduled for a hospital follow up appt. was seen at [facility] ER on 07/26 and 07/27. Jackson treated for uti and pneumonia. Jackson needs appt for follow up as soon as possible. Kindly return her call to schedule this for him. IMPORTANT: This note was created by [facility] Clinical Contact Center staff. Please do not alert the staff member by adding them as a signer for future communications. Alerts are not monitored by this user. /es/ CON YOUSSEF Signed: 07/31/2024 11:03 Receipt Acknowledged By: 07/31/2024 13:11 /es/ MAXIMILIANO KUMARI LPN LPN 08/01/2024 10:43 /es/ JAINNA ROWE RN REGISTERED NURSE [facility] [place] [facility]
--- OUTSIDE RECORDS SUMMARY | 2024-10-17 15:26 | XMS_ITS | Encounter Summary ---
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 [facility] [place] Organization [facility] [place] Address [address] [place] [address] Care Team Providers Care Sheriffs Name Role Phone GURPREET PEREZ Primary Care [...] Patient's Relationship to Policy Harding [facility] PLAN [employer] (WNR) MEDICARE ADVANTAGE [employer] (WNR) Oct 25, 2011 [facility] [id number] FATEMEH GOMEZ PATIENT Selected Encounter This section includes the information on record at [place] for the Encounter. Date/Time Encounter Type Encounter Description Reason Provider Source Aug 01, 2024 12:57 PM Outpatient Encounter PRIMARY CARE/MEDICINE MAXIMILIANO KUMARI Encounter Template Text not used by [place] Plan of Treatment: Future Appointments (+ 6 [...] 20 appointments. The data comes from all [facility]. Appointment Date/Time Appointment Type Appointme nt Facility Name Aug 05, 2024 08:00 AM AMBULATORY - MEDICINE [facility] Aug 22, 2024 09:30 AM AMBULATORY - MEDICINE [facility] Aug 29, 2024 08:00 AM [facility] Sep 20, 2024 09:00 AM AMBULATORY - MEDICINE [facility] Oct 03, 2024 11:30 AM [facility]BULATORY MEDIC[facility] Active, Pending, and Scheduled Orders This section includes a listing of several types of active, pending, and scheduled orders, including clinic medications orders, diagnostic test orders, procedure orders and consult orders; where the start date of the order is 45 days before the date of the Encounter or 45 days after the date of theEncounter. The data comes from all [facility]. Test Date/Time Test Type Test Details Facility Name Aug 28, 2024 04:23 PM Consult Order [facility] NON-SKILLED HOME HEALTH AIDE Cons Communication Center Operator's Choice [facility] Lab Results: +/- 30 days of [...] Range Comment Aug 22, 2024 10:26 AM [facility] FOLATE (OX) Specimen Type: SERUM No comment entered. Ordering Provider: COURTNEY FAROOQ Report Released Date/Time: Aug 22, 2024 10:17 AM Reporting Lab: [facility] [address] [facility] [address] Performing Lab: [facility] [address] [facility] [address] FOLATE (WROX) 3.90 ng/mL L >5.2 Aug 22, 2024 10:26 AM [facility] RETICULOCYTES Specimen Type: BLOOD Comment: Smear reviewed, auto CBC w/Diff accepted. Ordering Provider: COURTNEY FAROOQ Report Released Date/Time: Aug 22, 2024 10:17 AM Reporting Lab: [address] [address] Performing Lab: [address] [address] RETIC % 2.6 H 0.6-2.0 RETIC, ABS 91.6 10*3/uL H 30.0-90.0 RET-HE % 29.6 27.9-42.0 Aug 22, 2024 10:26 AM [facility] IRON & TIBC PANEL Specimen Type: SERUM No comment entered. Ordering Provider: COURTNEY FAROOQ Report Released Date/Time: Aug 22, 2024 10:17 AM Reporting Lab: [address] [address] Performing Lab: [address] [address] TIBC 210 ug/dL 204-475 IRON 43 ug/dL 40-160 Transferrin Saturation 20.5 20.0-50.0 Transferrin (TRF) 159 mg/dL L 200-360 Aug 22, 2024 10:26 AM [facility] CBC AND DIFF (AUTO) Specimen Type: BLOOD Comment: Smear reviewed, auto CBC w/Diff accepted. Ordering Provider: COURTNEY FAROOQ Report Released Date/Time: Aug 22, 2024 10:17 AM Reporting Lab: [address] [address] Performing Lab: [address] [address] WBC 7.35 10*3/uL 4.50-11.00 RBC 3.51 10*6/uL [...] H 0.00-0.00 Aug 22, 2024 10:26 AM [facility] FERRITIN Specimen Type: SERUM No comment entered. Ordering Provider: COURTNEY FAROOQ Report Released Date/Time: Aug 22, 2024 10:17 AM Reporting Lab: [facility] [address] [facility] [address] Performing Lab: [address] [address] FERRITIN 1130 ng/mL H 20-300 Aug 22, 2024 10:26 AM [facility] VITAMIN B12 Specimen Type: SERUM No comment entered. Ordering Provider: COURTNEY FAROOQ Report Released Date/Time: Aug 22, 2024 10:17 AM Reporting Lab: [facility] [address] [facility] [address] Performing Lab: [address] [address] VITAMIN B12 378 pg/mL 200-900 Aug 22, 2024 10:26 AM [facility] BASIC METABOLIC PANEL (non-fasting) Spe cimen Type: SERUM No comment entered. Ordering Provider: COURTNEY FAROOQ Report Released Date/Time: Aug 22, 2024 10:17 AM Reporting Lab: [address] [address] Performing Lab: [place] [facility] [address] UREA NITROGEN 12 mg/dL 7-25 GLUCOSE 104 mg/dL H 65-100 SODIUM 136 mmol/L 135-145 POTASSIUM 4.7 mmol/L 3.5-5.0 CHLORIDE 106 mmol/L 100-110 CO2 18 meq/L L 20-30 CREATININE, Serum 1.15 mg/dL 0.50-1.40 eGFR(CKD-EPI 2020) 65 mL/min >60 Aug 22, 2024 10:26 AM [facility] LIVER FUNCTION Specimen Type: SERUM No comment entered. Ordering Provider: COURTNEY FAROOQ Report Released Date/Time: Aug 22, 2024 10:17 AM Reporting Lab: [address] [address] Performing Lab: [address] [address] PROTEIN,TOTAL 6.0 g/dL 6.0-8.3 ALBUMIN 3.1 g/dL L 3.5-5.0 ALKALINE PHOSPHATASE 138 U/L 40-150 AST 27 U/L 5-34 ALT 36 U/L BILIRUBIN, TOTAL 1.0 mg/dL 0.2-1.2 Aug 16, 2024 01:58 PM [facility] URINALYSIS Specimen Type: URINE Comment: If Glucose = >500 and Ketones are positive, please alert the Physician. Ordering Provider: COURTNEY FAROOQ Report Released Date/Time: Aug 08, 2024 01:49 PM Reporting Lab: [address] [address] Performing Lab: [address] [address] UA COLOR Light-Yellow Yellow UA APPEARANCE Clear Clear UA GLUCOSE Normal mg/dL Negative UA KETONES NEGATIVE mg/dL Negative UA BLOOD NEGATIVE mg/dL Negative UA PROTEIN 10 mg/dL Negative UA NITRITE NEGATIVE mg/dL Negative UA BILIRUBIN NEGATIVE mg/dL Negative UA SPECIFIC GRAVITY 1.017 1.016-1.02 2 UA pH 6.0 5.0-9.0 UA UROBILINOGEN Normal mg/dL <2.0 UA LEUKOCYTE TRACE Negative Aug 16, 2024 01:58 PM [facility] MICROALBUMIN CREATININE RATIO PANEL Specimen Type: URINE No comment entered. Ordering Provider: COURTNEY FAROOQ Report Released Date/Time: Aug 08, 2024 01:49 PM Reporting Lab: [facility] [address] [facility] [address] Performing Lab: [address] [address] MICROALBUMIN/CR EATININE RATIO 7.3 mg/g 0-29.9 MICROALBUMIN,QU ANTITATIVE 0.8 mg/dL RR UNAVAIL CREATININE URINE 109.38 mg/dL Aug 16, 2024 01:58 PM [facility] MICROSCOPIC AUTOMATED, URINE Specimen Type: URINE Comment: If Glucose = >500 and Ketones are positive, please alert the Physician. Ordering Provider: COURTNEY FAROOQ Report Released Date/Time: Aug 08, 2024 01:49 PM Reporting Lab: [address] [address] Performing Lab: [address] [address] UA WBC 0-5 /[HPF] 0-5 UA BACTERIA 1+ /[HPF] NoneObs UA MUCUS FEW /[LPF] Trace UA HYALINE CASTS 2-4 /[LPF] 0-2 UA RBC 3-5 /[HPF] 0-3 Aug 15, 2024 10:14 AM [facility] BASIC METABOLIC PANEL (fasting) Specimen Type: SERUM No comment entered. Ordering Provider: COURTNEY FAROOQ Report Released Date/Time: Aug 08, 2024 01:49 PM Reporting Lab: [address] [address] Performing Lab: [address] [address] UREA NITROGEN 28 mg/dL H 7-25 GLUCOSE 98 mg/dL 65-100 SODIUM 133 mmol/L L 135-145 POTASSIUM 5.3 mmol/L H 3.5-5.0 CHLORIDE 106 mmol/L 100-110 CO2 15 meq/L L 20-30 CREATININE, Serum 1.31 mg/dL 0.50-1.40 eGFR(CKD-EPI 2020) 55 mL/min L >60 Aug 15, 2024 10:14 AM [facility] LIPID PANEL FASTING Specimen Type: SERUM No comment entered. Ordering Provider: COURTNEY FAROOQ Report Released Date/Time: Aug 08, 2024 01:49 PM Reporting Lab: [address] [address] Performing Lab: [address] [address] CHOLESTEROL 69 mg/dL TRIGLYCERIDE 88 mg/dL 0-150 LDL calculated 16 mg/dL 0-129 CHOL/HDL 2.0 HDL CHOLESTEROL 35 mg/dL L 40-60 Aug 15, 2024 10:14 AM [facility] LIVER FUNCTION Specimen Type: SERUM No comment entered. Ordering Provider: COURTNEY FAROOQ Report Released Date/Time: Aug 08, 2024 01:49 PM Reporting Lab: [address] [address] Performing Lab: [address] [address] PROTEIN,TOTAL 6.2 g/dL 6.0-8.3 ALBUMIN 3.2 g/dL L 3.5-5.0 ALKALINE PHOSPHATASE 103 U/L 40-150 AST 17 U/L 5-34 ALT 25 U/L BILIRUBIN, TOTAL 0.9 mg/dL 0.2-1.2 Aug 15, 2024 10:14 AM [facility] HEMOGLOBIN A1C PANEL Specimen Type: BLOOD [...] Aug 08, 2024 01:49 PM Reporting Lab: [address] [address] Performing Lab: [facility] [address] [facility] [address] HEMOGLOBIN A1C 6.7 H 4.0-5.6 Aug 15, 2024 10:14 AM [facility] CBC AND DIFF (AUTO) Specimen Type: BLOOD No comment entered. Ordering Provider: COURTNEY FAROOQ Report Released Date/Time: Aug 08, 2024 01:49 PM Reporting Lab: [facility] [address] [facility] [address] Performing Lab: [facility] [address] [facility] [address] WBC 7.54 10*3/uL 4.50-11.00 RBC 3.63 10*6/uL [...] 0.00-0.00 Aug 15, 2024 10:14 AM [facility] TSH Specimen Type: SERUM No comment entered. Ordering Provider: COURTNEY FAROOQ Report Released Date/Time: Aug 08, 2024 01:49 PM Reporting Lab: [facility] [address] [facility] [address] Performing Lab: [facility] [address] [facility] [address] TSH 1.84 u[IU]/mL 0.35-5.00 Aug 15, 2024 10:14 AM [facility] URIC ACID Specimen Type: SERUM No comment entered. Ordering Provider: COURTNEY FAROOQ Report Released Date/Time: Aug 08, 2024 01:49 PM Reporting Lab: [facility] [address] [facility] [address] Performing Lab: [address] [address] URIC ACID 7.9 mg/dL H 3.5-7.2 Aug 15, 2024 10:14 AM [facility] CALCIUM Specimen Type: SERUM No comment entered. Ordering Provider: COURTNEY FAROOQ Report Released Date/Time: Aug 08, 2024 01:49 PM Reporting Lab: [facility] [address] [facility] [address] Performing Lab: [facility] [address] CALCIUM 8.5 mg/dL 8.5-10.2 Aug 15, 2024 10:14 AM [facility] VITAMIN D (25-OH) Specimen Type: SERUM No comment entered. Ordering Provider: COURTNEY FAROOQ Report Released Date/Time: Aug 08, 2024 01:49 PM Reporting Lab: [address] [address] Performing Lab: [facility] [address] VITAMIN D (25-OH) <13 ng/mL L 20-50 [...] took place. Date/Time Current Smoking Status Comment Deana ity Jun 03, 2023 08:58 AM [place]-TOBACCO FORMER USER [facility] Tobacco Use History This section includes a history of the smoking, or tobacco-related health factors, that were collected on or before the date of the Encounter. The data comes from the [place] facility where the Encounter took place. Date/Time Smoking Status/Tobacco Use Comment F acility Jun 03, 2023 08:58 AM [place]-TOBACCO QUIT 15 YRS OR MORE [facility] Advance Directives: All historical and current [...] Jun 30, 2019 ADVANCE DIRECTIVE CASSIE POWELL [facility] Encounter Notes: All associated encounter notes This section contains the clinical notes associated to the Encounter. Date/Time Encounter Note(s) Provider Source Aug 01, 2024 12:57 PM PRIMARY CARE [employer] E MESSAGING: LOCAL TITLE: PRIMARY CARE SECURE MESSAGING STANDARD TITLE: PRIMARY CARE SECURE MESSAGING DATE OF NOTE: AUG 01, 2024@12:57 ENTRY DATE: AUG 01, 2024@12:57:03 AUTHOR: MAXIMILIANO KUMARI EXP COSIGNER: URGENCY: STATUS: COMPLETED PRIMARY CARE SECURE MESSAGING Has ADDENDA ------Original Message ------- Sent: 07/31/2024 01:58 PM ET From: FATEMEH GOMEZ To: [facility] Subject: Medication:Nebulizer machine and prescription Nebulizer machine to do my treatments that was suggested from the hospital. Also I have been paying for a compressor oxygen machine and I was wondering if the [place] covers that? I was hoping to talk to you on my appointment on the but was just cancelled. Please let me know if any of this is covered. /mini KUMARI LPN LPN Signed: 08/01/2024 12:57 08/01/2024 ADDENDUM STATUS: COMPLETED Prosthetic consult submitted for nebulizer machine. /mini KUMARI LPN LPN Signed: 08/01/2024 12:57 08/01/2024 ADDENDUM STATUS: COMPLETED SHE WILL DISCUSS OXYGEN WITH PROVIDER WHEN SHE RETURNS. NEBULZIER REQUEST HAS BEEN INITIATED - SHE WILL CONTACT PULMONOLOGY FOR SCRIPT FOR NEB TREATMENTS. ALSO SHE IS REQUESTING PT SERVICES IN TH HOME THROUGH COMPANY THEY ARE CURRENTLY USING. /mini KUMARI LPN LPN Signed: 08/01/2024 13:13 MAXIMILIANO KUMARI [place] [facility]
--- OUTSIDE RECORDS SUMMARY | 2024-10-17 15:26 | XMS_ITS | Encounter Summary ---
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 [place] Organization [facility] Address [address] [place] [address] Care Team Providers Care Manager Qa Name Role Phone GURPREET PEREZ Primary Care [...] Harding's Name Patient's Relationship to Policy Harding [facility] PLAN [facility] (WNR) MEDICARE ADVANTAGE [facility] (WNR) Oct 25, 2011 [facility] [id number] FATEMEH GOMEZ PATIENT Selected Encounter This section includes the information on record at [place] for the Encounter. Date/Time Encounter Type Encounter Description Reason Pro vider Source Jul 03, 2024 12:00 AM Outpatient Encounter EVENT (HISTORICAL) IHE Encounter Template Text not used by [...] 20 appointments. The data comes from all [place] treatment facilities. Appointment Date/Time Appointment Type Appointme nt Facility Name Aug 05, 2024 08:00 AM AMBULATORY - [facility]ICINE [facility] Aug 22, 2024 09:30 AM AMBULATORY - MEDICINE [facility] Aug 29, 2024 08:00 AM AMBULATORY MEDICINE [facility] Sep 20, 2024 09:00 AM AMBULATORY - MEDICINE [facility] Oct 03, 2024 11:30 AM [facility] - [facility]ICINE [facility] Social History: Smoking Status (Most current) and Tobacco Use (All prior to encounter date) This section includes the most current, and the historical, smoking and tobacco- related health factors from the [place] facility where the Encounter took place. Current Smoking Status This section includes the most current smoking, or tobacco-related health factor, from the [place] facility where the Encounter took place. Date/Time Current Smoking Status Comment Facil ity Jun 03, 2023 08:58 AM [place]-TOBACCO FORMER USER [facility] Tobacco Use History This section includes a history of the smoking, or tobacco-related health factors, that were collected on or before the date of the Encounter. The data comes from the [place] facility where the Encounter took place. Date/Time Smoking Status/Tobacco Use Comment F acility Jun 03, 2023 08:58 AM [place]-TOBACCO QUIT 15 YRS OR MORE [facility] Advance Directives: All historical and current Section Date Range: From patient's date of to the date document was created. This section includes ALL of a patient's completed or amended [place] Advance and Rescinded Directives. The entries below indicate that a directive exists for the patient, but an actual copy is not included with this document. The data comes from all [place] facilities. Date Advance Directives Provider Source Jul 15, 2023 ADVANCE DIRECTIVE ROGER PEDRAZA Jun 30, 2019 ADVANCE DIRECTIVE CASSIE POWELL [facility] Encounter Notes: All associated encounter notes This section contains the clinical notes associated to the Encounter. Date/Time Encounter Note(s) Provider Source Jul 03, 2024 12:00 AM NONVA CONSULT: LOCAL TITLE: COMMUNITY CARE-CONSULT RESULT NOTE STANDARD TITLE: NONVA CONSULT DATE OF NOTE: JUL 03, 2024 ENTRY DATE: JUL 24, 2024@11:21:23 AUTHOR: JERRY JIANG EXP COSIGNER: URGENCY: STATUS: COMPLETED VistA Imaging - Scanned Document SCANNED DOCUMENT SIGNATURE NOT REQUIRED Electronically Filed: 07/24/2024 by: JERRY BUNN [place] [facility] Jul 03, 2024 12:00 AM NONVA CONSULT: LOCAL TITLE: COMMUNITY CARE-CONSULT RESULT NOTE STANDARD TITLE: NONVA CONSULT DATE OF NOTE: JUL 03, 2024 ENTRY DATE: AUG 04, 2024@13:35:38 AUTHOR: TRE OLIVEIRA EXP COSIGNER: URGENCY: STATUS: COMPLETED VistA Imaging - Scanned Document SCANNED DOCUMENT SIGNATURE NOT REQUIRED Electronically Filed: 08/04/2024 by: TRE [facility]ORGAN [place] [facility] Jul 03, 2024 12:00 AM NONVA CONSULT: LOCAL TITLE: COMMUNITY CARE-CONSULT RESULT NOTE STANDARD TITLE: NONVA CONSULT DATE OF NOTE: JUL 03, 2024 ENTRY DATE: AUG 04, 2024@13:36:49 AUTHOR: TRE OLIVEIRA EXP COSIGNER: URGENCY: STATUS: COMPLETED VistA Imaging - Scanned Document SCANNED DOCUMENT SIGNATURE NOT REQUIRED Electronically Filed: 08/04/2024 by: TRE [facility]ORGAN [place] [facility]
--- OUTSIDE RECORDS SUMMARY | 2024-10-17 15:26 | XMS_ITS ---
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 [place] Organization [facility] [place] [place] Address [address] [place] [address] Care Team Providers Care Telephone Betting Clerk Name Role Phone GURPREET PEREZ Primary Care [...] Harding's Name Patient's Relationship to Policy Harding [facility] PLAN [facility] (WNR) MEDICARE ADVANTAGE [facility] (WNR) Oct 25, 2011 [facility] [id number]OMEZ PATIENT Selected Encounter This section includes the information on record at [place] for the Encounter. Date/Time Encounter Type Encounter Description Reason Pro vider Source Aug 08, 2024 09:48 AM Outpatient Encounter PRIMARY CARE/MEDICINE IHE Encounter Template Text not used by MS Plan of Treatment: Future Appointments (+ 6 [...] 20 appointments. The data comes from all [place] treatment [facility]. Appointment Date/Time Appointment Type Appointme nt Facility Name Aug 22, 2024 09:30 AM AMBULATORY [facility]INE [facility] Aug 29, 2024 08:00 AM [facility]BULATORY - MEDICINE [facility] Sep 20, 2024 09:00 AM AMBULATORY - MEDICINE [facility] Oct 03, 2024 11:30 AM [facility] Active, Pending, and Scheduled Orders This section includes a listing of several types of active, pending, and scheduled orders, including clinic medications orders, diagnostic test orders, procedure orders and consult orders; where the start date of the order is 45 days before the date of the Encounter or 45 days after the date of theEncounter. The data comes from all [facility]. Test Date/Time Test Type Test Details Facility Name Aug 28, 2024 04:23 PM Consult Order COMMUNITY CARE-GEC NON-SKILLED HOME HEALTH AIDE Cons Technical Project Manager's Choice [facility] Sep 20, 2024 10:06 AM Consult Order NUTRITION ASSESSMENT/EDUCATION/SPO PC OUTPT Cons Technical Project Manager's [facility] Lab Results: +/- 30 days of the encounter This section includes the Chemistry and Hematology Lab Results on record with [place] for the patient. Radiology Reports and Pathology Reports are provided separately, in subsequent sections. Lab Results This section contains the Chemistry/Hematology Results that were resulted 30 days before or 30 daysafter the date of the Encounter. Date/Time Source Result Type Result - Unit Interpretation Reference Range Comment Aug 22, 2024 10:26 AM [facility] FOLATE (OX) Specimen Type: SERUM No comment entered. Ordering Provider: COURTNEY FAROOQ Report Released Date/Time: Aug 22, 2024 10:17 AM Reporting Lab: [facility] [address] [facility] [address] Performing Lab: [facility] [address] [facility] [address] FOLATE (WROX) 3.90 ng/mL L >5.2 Aug 22, 2024 10:26 AM [facility] RETICULOCYTES Specimen Type: BLOOD Comment: Smear reviewed, auto CBC w/Diff accepted. Ordering Provider: COURTNEY FAROOQ Report Released Date/Time: Aug 22, 2024 10:17 AM Reporting Lab: [address] [address] Performing Lab: [address] [address] RETIC % 2.6 H 0.6-2.0 RETIC, ABS 91.6 10*3/uL H 30.0-90.0 RET-HE % 29.6 27.9-42.0 Aug 22, 2024 10:26 AM [facility] IRON & TIBC PANEL Specimen Type: SERUM No comment entered. Ordering Provider: COURTNEY FAROOQ Report Released Date/Time: Aug 22, 2024 10:17 AM Reporting Lab: [address] [address] Performing Lab: [address] [address] TIBC 210 ug/dL 204-475 IRON 43 ug/dL 40-160 Transferrin Saturation 20.5 20.0-50.0 Transferrin (TRF) 159 mg/dL L 200-360 Aug 22, 2024 10:26 AM [facility] CBC AND DIFF (AUTO) Specimen Type: BLOOD Comment: Smear reviewed, auto CBC w/Diff accepted. Ordering Provider: COURTNEY FAROOQ Report Released Date/Time: Aug 22, 2024 10:17 AM Reporting Lab: [address] [address] Performing Lab: [address] [address] WBC 7.35 10*3/uL 4.50-11.00 RBC 3.51 10*6/uL [...] H 0.00-0.00 Aug 22, 2024 10:26 AM [facility] FERRITIN Specimen Type: SERUM No comment entered. Ordering Provider: COURTNEY FAROOQ Report Released Date/Time: Aug 22, 2024 10:17 AM Reporting Lab: [facility] [address] [facility] [address] Performing Lab: [address] [address] FERRITIN 1130 ng/mL H 20-300 Aug 22, 2024 10:26 AM [facility] VITAMIN B12 Specimen Type: SERUM No comment entered. Ordering Provider: COURTNEY FAROOQ Report Released Date/Time: Aug 22, 2024 10:17 AM Reporting Lab: [facility] [address] [facility] [address] Performing Lab: [address] [address] VITAMIN B12 378 pg/mL 200-900 Aug 22, 2024 10:26 AM [facility] BASIC METABOLIC PANEL (non-fasting) Spe cimen Type: SERUM No comment entered. Ordering Provider: COURTNEY FAROOQ Report Released Date/Time: Aug 22, 2024 10:17 AM Reporting Lab: [address] [address] Performing Lab: [facility] [address] UREA NITROGEN 12 mg/dL 7-25 GLUCOSE 104 mg/dL H 65-100 SODIUM 136 mmol/L 135-145 POTASSIUM 4.7 mmol/L 3.5-5.0 CHLORIDE 106 mmol/L 100-110 CO2 18 meq/L L 20-30 CREATININE, Serum 1.15 mg/dL 0.50-1.40 eGFR(CKD-EPI 2020) 65 mL/min >60 Aug 22, 2024 10:26 AM [facility] LIVER FUNCTION Specimen Type: SERUM No comment entered. Ordering Provider: COURTNEY FAROOQ Report Released Date/Time: Aug 22, 2024 10:17 AM Reporting Lab: [address] [address] Performing Lab: [address] [address] PROTEIN,TOTAL 6.0 g/dL 6.0-8.3 ALBUMIN 3.1 g/dL L 3.5-5.0 ALKALINE PHOSPHATASE 138 U/L 40-150 AST 27 U/L 5-34 ALT 36 U/L BILIRUBIN, TOTAL 1.0 mg/dL 0.2-1.2 Aug 16, 2024 01:58 PM [facility] URINALYSIS Specimen Type: URINE Comment: If Glucose = >500 and Ketones are positive, please alert the Physician. Ordering Provider: COURTNEY FAROOQ Report Released Date/Time: Aug 08, 2024 01:49 PM Reporting Lab: [address] [address] Performing Lab: [address] [address] UA COLOR Light-Yellow Yellow UA APPEARANCE Clear Clear UA GLUCOSE Normal mg/dL Negative UA KETONES NEGATIVE mg/dL Negative UA BLOOD NEGATIVE mg/dL Negative UA PROTEIN 10 mg/dL Negative UA NITRITE NEGATIVE mg/dL Negative UA BILIRUBIN NEGATIVE mg/dL Negative UA SPECIFIC GRAVITY 1.017 1.016-1.02 2 UA pH 6.0 5.0-9.0 UA UROBILINOGEN Normal mg/dL <2.0 UA LEUKOCYTE TRACE Negative Aug 16, 2024 01:58 PM [facility] MICROALBUMIN CREATININE RATIO PANEL Specimen Type: URINE No comment entered. Ordering Provider: COURTNEY FAROOQ Report Released Date/Time: Aug 08, 2024 01:49 PM Reporting Lab: [facility] [address] [facility] [address] Performing Lab: [address] [address] MICROALBUMIN/CR EATININE RATIO 7.3 mg/g 0-29.9 MICROALBUMIN,QU ANTITATIVE 0.8 mg/dL RR UNAVAIL CREATININE URINE 109.38 mg/dL Aug 16, 2024 01:58 PM [facility] MICROSCOPIC AUTOMATED, URINE Specimen Type: URINE Comment: If Glucose = >500 and Ketones are positive, please alert the Physician. Ordering Provider: COURTNEY FAROOQ Report Released Date/Time: Aug 08, 2024 01:49 PM Reporting Lab: [address] [address] Performing Lab: [address] [address] UA WBC 0-5 /[HPF] 0-5 UA BACTERIA 1+ /[HPF] NoneObs UA MUCUS FEW /[LPF] Trace UA HYALINE CASTS 2-4 /[LPF] 0-2 UA RBC 3-5 /[HPF] 0-3 Aug 15, 2024 10:14 AM [facility] BASIC METABOLIC PANEL (fasting) Specimen Type: SERUM No comment entered. Ordering Provider: COURTNEY FAROOQ Report Released Date/Time: Aug 08, 2024 01:49 PM Reporting Lab: [address] [address] Performing Lab: [address] [address] UREA NITROGEN 28 mg/dL H 7-25 GLUCOSE 98 mg/dL 65-100 SODIUM 133 mmol/L L 135-145 POTASSIUM 5.3 mmol/L H 3.5-5.0 CHLORIDE 106 mmol/L 100-110 CO2 15 meq/L L 20-30 CREATININE, Serum 1.31 mg/dL 0.50-1.40 eGFR(CKD-EPI 2020) 55 mL/min L >60 Aug 15, 2024 10:14 AM [facility] LIPID PANEL FASTING Specimen Type: SERUM No comment entered. Ordering Provider: COURTNEY FAROOQ Report Released Date/Time: Aug 08, 2024 01:49 PM Reporting Lab: [address] [address] Performing Lab: [address] [address] CHOLESTEROL 69 mg/dL TRIGLYCERIDE 88 mg/dL 0-150 LDL calculated 16 mg/dL 0-129 CHOL/HDL 2.0 HDL CHOLESTEROL 35 mg/dL L 40-60 Aug 15, 2024 10:14 AM [facility] LIVER FUNCTION Specimen Type: SERUM No comment entered. Ordering Provider: COURTNEY FAROOQ Report Released Date/Time: Aug 08, 2024 01:49 PM Reporting Lab: [address] [address] Performing Lab: [address] [address] PROTEIN,TOTAL 6.2 g/dL 6.0-8.3 ALBUMIN 3.2 g/dL L 3.5-5.0 ALKALINE PHOSPHATASE 103 U/L 40-150 AST 17 U/L 5-34 ALT 25 U/L BILIRUBIN, TOTAL 0.9 mg/dL 0.2-1.2 Aug 15, 2024 10:14 AM [facility] HEMOGLOBIN A1C PANEL Specimen Type: BLOOD [...] Aug 08, 2024 01:49 PM Reporting Lab: [address] [address] Performing Lab: [facility] [address] [facility] [address] HEMOGLOBIN A1C 6.7 H 4.0-5.6 Aug 15, 2024 10:14 AM [facility] TSH Specimen Type: SERUM No comment entered. Ordering Provider: COURTNEY FAROOQ Report Released Date/Time: Aug 08, 2024 01:49 PM Reporting Lab: [facility] [address] [facility] [address] Performing Lab: [facility] [address] [facility] [address] TSH 1.84 u[IU]/mL 0.35-5.00 Aug 15, 2024 10:14 AM [facility] CBC AND DIFF (AUTO) Specimen Type: BLOOD No comment entered. Ordering Provider: COURTNEY FAROOQ Report Released Date/Time: Aug 08, 2024 01:49 PM Reporting Lab: [facility] [address] [facility] [address] Performing Lab: [facility] [address] [facility] [address] WBC 7.54 10*3/uL 4.50-11.00 RBC 3.63 10*6/uL [...] 10*3/uL 0.00-0.00 Aug 15, 2024 10:14 AM [facility] CALCIUM Specimen Type: SERUM No comment entered. Ordering Provider: COURTNEY FAROOQ Report Released Date/Time: Aug 08, 2024 01:49 PM Reporting Lab: [address] [address] Performing Lab: [address] [address] CALCIUM 8.5 mg/dL 8.5-10.2 Aug 15, 2024 10:14 AM [facility] URIC ACID Specimen Type: SERUM No comment entered. Ordering Provider: COURTNEY FAROOQ Report Released Date/Time: Aug 08, 2024 01:49 PM Reporting Lab: [address] [address] Performing Lab: [address] [address] URIC ACID 7.9 mg/dL H 3.5-7.2 Aug 15, 2024 10:14 AM [facility] VITAMIN D (25-OH) Specimen Type: SERUM No comment entered. Ordering Provider: COURTNEY FAROOQ Report Released Date/Time: Aug 08, 2024 01:49 PM Reporting Lab: [address] [address] Performing Lab: [address] [address] VITAMIN D (25-OH) <13 ng/mL L 20-50 Social History: Smoking Status (Most current) and Tobacco Use (All prior to encounter date) This section includes the most current, and the historical, smoking and tobacco- related health factors from the [place] facility where the Encounter took place. Current Smoking Status This section includes the most current smoking, or tobacco-related health factor, from the [place] facility where the Encounter took place. Date/Time Current Smoking Status Comment Facil ity Jun 03, 2023 08:58 AM VA-TOBACCO FORMER USER [facility] Tobacco Use History This section includes a history of the smoking, or tobacco-related health factors, that were collected on or before the date of the Encounter. The data comes from the [place] facility where the Encounter took place. Date/Time Smoking Status/Tobacco Use Comment F acility Jun 03, 2023 08:58 AM [place]-TOBACCO QUIT 15 YRS OR MORE [facility] Advance Directives: All historical and current Section Date Range: From patient's date of to the date document was created. This section includes ALL of a patient's completed or amended [place] Advance and Rescinded Directives. The entries below indicate that a directive exists for the patient, but an actual copy is not included with this document. The data comes from all [place] facilities. Date Advance Directives Provider Source Jul 15, 2023 ADVANCE DIRECTIVE ROGER PEDRAZA Jun 30, 2019 ADVANCE DIRECTIVE CASSIE POWELL [facility] Encounter Notes: All associated encounter notes This section contains the clinical notes associated to the Encounter. Date/Time Encounter Note(s) Provider Source Aug 08, 2024 09:48 AM MEDICATION MGT NOT E: LOCAL TITLE: OUTPATIENT MEDICATION REQUEST STANDARD TITLE: MEDICATION MGT NOTE DATE OF NOTE: AUG 08, 2024@09:48 ENTRY DATE: AUG 08, 2024@09:48:17 AUTHOR: MAXIMILIANO KUMARI EXP COSIGNER: URGENCY: STATUS: COMPLETED Medication Request Date of Request: Jul Is this a New Medication? No PLEASE RENEW AND MAIL REQUESTING 5 REFILLS UNDERPAD, BED 23IN X 36IN PLASTIC BACK Instructions: 1 PAD UNDERPAD,BED 23IN X 36IN PLASTIC BACK TOPICAL BID PRN /inge/ MAXIMILIANO KUMARI LPN LPN Signed: 08/08/2024 09:50 Receipt Acknowledged By: 08/11/2024 10:10 /es/ PABLITO PARKER NP NURSE PRACTITIONER for [facility]
--- OUTSIDE RECORDS SUMMARY | 2024-10-17 15:26 | XMS_ITS ---
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 Affairs ([place]) Organization [facility] [place] Address [address] [place] [address] Care Team Providers Care Door Liner Helper Name Role Phone GURPREET PEREZ Primary Care [...] Harding's Name Patient's Relationship to Policy Harding [facility] PLAN [facility] (WNR) MEDICARE ADVANTAGE [facility] (WNR) Oct 25, 2011 [facility] [id number] PATIENT Selected Encounter This section includes the information on record at [place] for the Encounter. Date/Time Encounter Type Encounter Description Reason Pro vider Source Jul 10, 2024 12:00 PM Outpatient Encounter COMMUNITY CARE CONSULT IHE Encounter [...] 20 appointments. The data comes from all [place] treatment facilities. Appointment Date/Time Appointment Type Appointme nt Facility Name Aug 05, 2024 08:00 AM AMBULATORY - MEDICINE [facility] Aug 22, 2024 09:30 AM AMBULATORY - MEDICINE [facility] Aug 29, 2024 08:00 AM AMBULATORY - MEDICINE [facility] Sep 20, 2024 09:00 AM AMBULATORY - MEDICINE [facility] Oct 03, 2024 11:30 AM AMBULATORY - MEDICINE [facility] Social History: Smoking Status (Most current) and Tobacco Use (All prior to encounter date) This section includes the most current, and the historical, smoking and tobacco- related health factors from the [place] facility where the Encounter took place. Current Smoking Status This section includes the most current smoking, or tobacco-related health factor, from the [place] facility where the Encounter took place. Date/Time Current Smoking Status Comment Facil ity Jun 03, 2023 08:58 AM VA-TOBACCO FORMER USER [facility] Tobacco Use History This section includes a history of the smoking, or tobacco-related health factors, that were collected on or before the date of the Encounter. The data comes from the [place] facility where the Encounter took place. Date/Time Smoking Status/Tobacco Use Comment F acility Jun 03, 2023 08:58 AM VA-TOBACCO QUIT 15 YRS OR MORE [facility] Advance Directives: All historical and current Section Date Range: From patient's date of to the date document was created. This section includes ALL of a patient's completed or amended [place] Advance and Rescinded Directives. The entries below indicate that a directive exists for the patient, but an actual copy is not included with this document. The data comes from all [place] facilities. Date Advance Directives Provider Source Jul 15, 2023 ADVANCE DIRECTIVE ROGER PEDRAZA Jun 30, 2019 ADVANCE DIRECTIVE CASSIE POWELL [facility] Encounter Notes: All associated encounter notes This section contains the clinical notes associated to the Encounter. Date/Time Encounter Note(s) Provider Source Jul 10, 2024 12:00 PM NONVA CONSULT: LOCAL TITLE: COMMUNITY CARE-CONSULT RESULT NOTE STANDARD TITLE: NONVA CONSULT DATE OF NOTE: JUL 10, 2024@12:00 ENTRY DATE: AUG 10, 2024@10:01:33 AUTHOR: LIBAN TRIMBLE EXP COSIGNER: URGENCY: STATUS: COMPLETED VistA Imaging - Scanned Document SCANNED DOCUMENT SIGNATURE NOT REQUIRED Electronically Filed: 08/10/2024 by: LIBAN TRIMBLE MEDICAL CROWN BLOCKERLIBAN CARROLL [facility] Jul 10, 2024 12:00 PM NONVA CONSULT: LOCAL TITLE: COMMUNITY CARE-CONSULT RESULT NOTE STANDARD TITLE: NONVA CONSULT DATE OF NOTE: JUL 10, 2024@12:00 ENTRY DATE: AUG 10, 2024@10:06:06 AUTHOR: LIBAN TRIMBLE EXP COSIGNER: URGENCY: STATUS: COMPLETED VistA Imaging - Scanned Document SCANNED DOCUMENT SIGNATURE NOT REQUIRED Electronically Filed: 08/10/2024 by: LIBAN TRIMBLE MEDICAL CROWN BLOCKER NAILIBAN [facility]
--- OUTSIDE RECORDS SUMMARY | 2024-10-17 15:26 | XMS_ITS | Encounter Summary ---
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 [place] Organization [place] Address [address] [place] [address] Care Team Providers Care Rod Welder Name Role Phone GURPREET PEREZ Primary Care [...] Harding's Name Patient's Relationship to Policy Harding [facility] PLAN [facility] (WNR) MEDICARE ADVANTAGE [facility] (WNR) Oct 25, 2011 [facility] [id number] PATIENT Selected Encounter This section includes the information on record at [place] for the Encounter. Date/Time Encounter Type Encounter Description Reason Pro vider Source Jun 19, 2024 12:00 AM Outpatient Encounter COMMUNITY CARE [...] 20 appointments. The data comes from all [place] treatment facilities. Appointment Date/Time Appointment Type Appointme nt Facility Name Aug 05, 2024 08:00 AM AMBULATORY - MEDICINE [facility] Aug 22, 2024 09:30 AM AMBULATORY - MEDICINE [facility] Aug 29, 2024 08:00 AM AMBULATORY - MEDICINE [facility] Sep 20, 2024 09:00 AM AMBULATORY - MEDICINE [facility] Oct 03, 2024 11:30 AM AMBULATORY - MEDICINE [facility] Social History: Smoking Status (Most current) and Tobacco Use (All prior to encounter date) This section includes the most current, and the historical, smoking and tobacco- related health factors from the [place] facility where the Encounter took place. Current Smoking Status This section includes the most current smoking, or tobacco-related health factor, from the [place] facility where the Encounter took place. Date/Time Current Smoking Status Comment Facil ity Jun 03, 2023 08:58 AM VA-TOBACCO FORMER USER [facility] Tobacco Use History This section includes a history of the smoking, or tobacco-related health factors, that were collected on or before the date of the Encounter. The data comes from the [place] facility where the Encounter took place. Date/Time Smoking Status/Tobacco Use Comment F acility Jun 03, 2023 08:58 AM [place]-TOBACCO QUIT 15 YRS OR MORE [facility] Advance Directives: All historical and current Section Date Range: From patient's date of to the date document was created. This section includes ALL of a patient's completed or amended [place] Advance and Rescinded Directives. The entries below indicate that a directive exists for the patient, but an actual copy is not included with this document. The data comes from all [place] facilities. Date Advance Directives Provider Source Jul 15, 2023 ADVANCE DIRECTIVE ROGER PEDRAZA Jun 30, 2019 ADVANCE DIRECTIVE CASSIE POWELL [facility] Encounter Notes: All associated encounter notes This section contains the clinical notes associated to the Encounter. Date/Time Encounter Note(s) Provider Source Jun 19, 2024 12:00 AM NONVA CONSULT: LOCAL TITLE: COMMUNITY CARE-CONSULT RESULT NOTE STANDARD TITLE: NONVA CONSULT DATE OF NOTE: JUN 19, 2024 ENTRY DATE: JUL 17, 2024@09:59:48 AUTHOR: TRE OLIVEIRA EXP COSIGNER: URGENCY: STATUS: COMPLETED VistA Imaging - Scanned Document SCANNED DOCUMENT SIGNATURE NOT REQUIRED Electronically Filed: 07/17/2024 by: TRE MORGAN CNT [facility]N [facility] Jun 19, 2024 12:00 AM NONVA CONSULT: LOCAL TITLE: COMMUNITY CARE-CONSULT RESULT NOTE STANDARD TITLE: NONVA CONSULT DATE OF NOTE: JUN 19, 2024 ENTRY DATE: JUL 17, 2024@10:03:42 AUTHOR: TRE OLIVEIRA EXP COSIGNER: URGENCY: STATUS: COMPLETED VistA Imaging - Scanned Document SCANNED DOCUMENT SIGNATURE NOT REQUIRED Electronically Filed: 07/17/2024 by: TRE MORGAN [facility]
--- OUTSIDE RECORDS SUMMARY | 2024-10-17 15:26 | XMS_ITS ---
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 [place] [facility] [place] [facility] [place] Address [address] [place] [address] Care Team Providers Care Bag Shaker Name Role Phone GURPREET PEREZ Primary Care [...] Harding's Name Patient's Relationship to Policy Harding [facility] PLAN [facility] ([place]) MEDICARE ADVANTAGE [facility] ([place]) Oct 25, 2011 [facility] [id number] PATIENT Selected Encounter This section includes the information on record at [place] for the Encounter. Date/Time Encounter Type Encounter Description Reason Pro vider Source Jul 31, 2024 08:37 AM Outpatient Encounter COMMUNITY CARE CONSULT IHE [...] 20 appointments. The data comes from all [facility]. Appointment Date/Time Appointment Type Appointme nt Facility Name Aug 05, 2024 08:00 AM AMBULATORY - MEDICINE [facility] Aug 22, 2024 09:30 AM AMBULATORY - MEDICINE [facility] Aug 29, 2024 08:00 AM [facility] Sep 20, 2024 09:00 AM AMBULATORY - MEDICINE [facility] Oct 03, 2024 11:30 AM AMBULATORY MEDICINE [facility] Active, Pending, and Scheduled Orders This section includes a listing of several types of active, pending, and scheduled orders, including clinic medications orders, diagnostic test orders, procedure orders and consult orders; where the start date of the order is 45 days before the date of the Encounter or 45 days after the date of theEncounter. The data comes from all [facility]. Test Date/Time Test Type Test Details Facility Name Aug 28, 2024 04:23 PM Consult Order [facility] NON-SKILLED [facility] HEALTH AIDE Cons Bond Clerk's Choice [facility] Lab Results: +/- 30 days of the encounter This section includes the Chemistry and Hematology Lab Results on record with [place] for the patient. Radiology Reports and Pathology Reports are provided separately, in subsequent sections. Lab Results This section contains the Chemistry/Hematology Results that were resulted 30 days before or 30 daysafter the date of the Encounter. Date/Time Source Result Type Result - Unit Interpretation Reference Range Comment Aug 22, 2024 10:26 AM [facility] FOLATE (OX) Specimen Type: SERUM No comment entered. Ordering Provider: COURTNEY FAROOQ Report Released Date/Time: Aug 22, 2024 10:17 AM Reporting Lab: [facility] [address] [address] Performing Lab: [facility] [address] [facility] [phone] FOLATE (WROX) 3.90 ng/mL L >5.2 Aug 22, 2024 10:26 AM [facility] RETICULOCYTES Specimen Type: BLOOD Comment: Smear reviewed, auto CBC w/Diff accepted. Ordering Provider: COURTNEY FAROOQ Report Released Date/Time: Aug 22, 2024 10:17 AM Reporting Lab: [address] [address] Performing Lab: [address] [address] RETIC % 2.6 H 0.6-2.0 RETIC, ABS 91.6 10*3/uL H 30.0-90.0 RET-HE % 29.6 27.9-42.0 Aug 22, 2024 10:26 AM [facility] IRON & TIBC PANEL Specimen Type: SERUM No comment entered. Ordering Provider: COURTNEY FAROOQ Report Released Date/Time: Aug 22, 2024 10:17 AM Reporting Lab: [address] [address] Performing Lab: [address] [address] TIBC 210 ug/dL 204-475 IRON 43 ug/dL 40-160 Transferrin Saturation 20.5 20.0-50.0 Transferrin (TRF) 159 mg/dL L 200-360 Aug 22, 2024 10:26 AM [facility] CBC AND DIFF (AUTO) Specimen Type: BLOOD Comment: Smear reviewed, auto CBC w/Diff accepted. Ordering Provider: COURTNEY FAROOQ Report Released Date/Time: Aug 22, 2024 10:17 AM Reporting Lab: [address] [address] Performing Lab: [address] [address] WBC 7.35 10*3/uL 4.50-11.00 RBC 3.51 10*6/uL [...] H 0.00-0.00 Aug 22, 2024 10:26 AM [facility] FERRITIN Specimen Type: SERUM No comment entered. Ordering Provider: COURTNEY FAROOQ Report Released Date/Time: Aug 22, 2024 10:17 AM Reporting Lab: [address] [address] Performing Lab: [address] [address] FERRITIN 1130 ng/mL H 20-300 Aug 22, 2024 10:26 AM [facility] VITAMIN B12 Specimen Type: SERUM No comment entered. Ordering Provider: COURTNEY FAROOQ Report Released Date/Time: Aug 22, 2024 10:17 AM Reporting Lab: [address] [address] Performing Lab: [address] [address] VITAMIN B12 378 pg/mL 200-900 Aug 22, 2024 10:26 AM [facility] BASIC METABOLIC PANEL (non-fasting) Spe cimen Type: SERUM No comment entered. Ordering Provider: COURTNEY FAROOQ Report Released Date/Time: Aug 22, 2024 10:17 AM Reporting Lab: [address] [address] Performing Lab: [address] [place] [address] UREA NITROGEN 12 mg/dL 7-25 GLUCOSE 104 mg/dL H 65-100 SODIUM 136 mmol/L 135-145 POTASSIUM 4.7 mmol/L 3.5-5.0 CHLORIDE 106 mmol/L 100-110 CO2 18 meq/L L 20-30 CREATININE, Serum 1.15 mg/dL 0.50-1.40 eGFR(CKD-EPI 2020) 65 mL/min >60 Aug 22, 2024 10:26 AM [facility] LIVER FUNCTION Specimen Type: SERUM No comment entered. Ordering Provider: COURTNEY FAROOQ Report Released Date/Time: Aug 22, 2024 10:17 AM Reporting Lab: [address] [address] Performing Lab: [address] [address] PROTEIN,TOTAL 6.0 g/dL 6.0-8.3 ALBUMIN 3.1 g/dL L 3.5-5.0 ALKALINE PHOSPHATASE 138 U/L 40-150 AST 27 U/L 5-34 ALT 36 U/L BILIRUBIN, TOTAL 1.0 mg/dL 0.2-1.2 Aug 16, 2024 01:58 PM [facility] URINALYSIS Specimen Type: URINE Comment: If Glucose = >500 and Ketones are positive, please alert the Physician. Ordering Provider: COURTNEY FAROOQ Report Released Date/Time: Aug 08, 2024 01:49 PM Reporting Lab: [address] [address] Performing Lab: [address] [address] UA COLOR Light-Yellow Yellow UA APPEARANCE Clear Clear UA GLUCOSE Normal mg/dL Negative UA KETONES NEGATIVE mg/dL Negative UA BLOOD NEGATIVE mg/dL Negative UA PROTEIN 10 mg/dL Negative UA NITRITE NEGATIVE mg/dL Negative UA BILIRUBIN NEGATIVE mg/dL Negative UA SPECIFIC GRAVITY 1.017 1.016-1.02 2 UA pH 6.0 5.0-9.0 UA UROBILINOGEN Normal mg/dL <2.0 UA LEUKOCYTE TRACE Negative Aug 16, 2024 01:58 PM [facility] MICROALBUMIN CREATININE RATIO PANEL Specimen Type: URINE No comment entered. Ordering Provider: COURTNEY FAROOQ Report Released Date/Time: Aug 08, 2024 01:49 PM Reporting Lab: [facility] [address] [address] Performing Lab: [address] [address] MICROALBUMIN/CR EATININE RATIO 7.3 mg/g 0-29.9 MICROALBUMIN,QU ANTITATIVE 0.8 mg/dL RR UNAVAIL CREATININE URINE 109.38 mg/dL Aug 16, 2024 01:58 PM [facility] MICROSCOPIC AUTOMATED, URINE Specimen Type: URINE Comment: If Glucose = >500 and Ketones are positive, please alert the Physician. Ordering Provider: COURTNEY FAROOQ Report Released Date/Time: Aug 08, 2024 01:49 PM Reporting Lab: [address] [address] Performing Lab: [address] [address] UA WBC 0-5 /[HPF] 0-5 UA BACTERIA 1+ /[HPF] NoneObs UA MUCUS FEW /[LPF] Trace UA HYALINE CASTS 2-4 /[LPF] 0-2 UA RBC 3-5 /[HPF] 0-3 Aug 15, 2024 10:14 AM [facility] BASIC METABOLIC PANEL (fasting) Specimen Type: SERUM No comment entered. Ordering Provider: COURTNEY FAROOQ Report Released Date/Time: Aug 08, 2024 01:49 PM Reporting Lab: [address] [address] Performing Lab: [address] [address] UREA NITROGEN 28 mg/dL H 7-25 GLUCOSE 98 mg/dL 65-100 SODIUM 133 mmol/L L 135-145 POTASSIUM 5.3 mmol/L H 3.5-5.0 CHLORIDE 106 mmol/L 100-110 CO2 15 meq/L L 20-30 CREATININE, Serum 1.31 mg/dL 0.50-1.40 eGFR(CKD-EPI 2020) 55 mL/min L >60 Aug 15, 2024 10:14 AM [facility] LIPID PANEL FASTING Specimen Type: SERUM No comment entered. Ordering Provider: COURTNEY FAROOQ Report Released Date/Time: Aug 08, 2024 01:49 PM Reporting Lab: [address] [address] Performing Lab: [address] [address] CHOLESTEROL 69 mg/dL TRIGLYCERIDE 88 mg/dL 0-150 LDL calculated 16 mg/dL 0-129 CHOL/HDL 2.0 HDL CHOLESTEROL 35 mg/dL L 40-60 Aug 15, 2024 10:14 AM [facility] LIVER FUNCTION Specimen Type: SERUM No comment entered. Ordering Provider: COURTNEY FAROOQ Report Released Date/Time: Aug 08, 2024 01:49 PM Reporting Lab: [address] [address] Performing Lab: [address] [address] PROTEIN,TOTAL 6.2 g/dL 6.0-8.3 ALBUMIN 3.2 g/dL L 3.5-5.0 ALKALINE PHOSPHATASE 103 U/L 40-150 AST 17 U/L 5-34 ALT 25 U/L BILIRUBIN, TOTAL 0.9 mg/dL 0.2-1.2 Aug 15, 2024 10:14 AM [facility] HEMOGLOBIN A1C PANEL Specimen Type: BLOOD [...] Aug 08, 2024 01:49 PM Reporting Lab: [address] [address] Performing Lab: [facility] [address] [address] HEMOGLOBIN A1C 6.7 H 4.0-5.6 Aug 15, 2024 10:14 AM [facility] TSH Specimen Type: SERUM No comment entered. Ordering Provider: COURTNEY FAROOQ Report Released Date/Time: Aug 08, 2024 01:49 PM Reporting Lab: [facility] [address] [address] Performing Lab: [facility] [address] [facility] [address] TSH 1.84 u[IU]/mL 0.35-5.00 Aug 15, 2024 10:14 AM [facility] CBC AND DIFF (AUTO) Specimen Type: BLOOD No comment entered. Ordering Provider: COURTNEY FAROOQ Report Released Date/Time: Aug 08, 2024 01:49 PM Reporting Lab: [facility] [address] [address] Performing Lab: [address] [address] WBC 7.54 10*3/uL 4.50-11.00 RBC 3.63 10*6/uL [...] 10*3/uL 0.00-0.00 Aug 15, 2024 10:14 AM [facility] CALCIUM Specimen Type: SERUM No comment entered. Ordering Provider: COURTNEY FAROOQ Report Released Date/Time: Aug 08, 2024 01:49 PM Reporting Lab: [address] [address] Performing Lab: [address] [address] CALCIUM 8.5 mg/dL 8.5-10.2 Aug 15, 2024 10:14 AM [facility] URIC ACID Specimen Type: SERUM No comment entered. Ordering Provider: COURTNEY FAROOQ Report Released Date/Time: Aug 08, 2024 01:49 PM Reporting Lab: [address] [address] Performing Lab: [address] [address] URIC ACID 7.9 mg/dL H 3.5-7.2 Aug 15, 2024 10:14 AM [facility] VITAMIN D (25-OH) Specimen Type: SERUM No comment entered. Ordering Provider: COURTNEY FAROOQ Report Released Date/Time: Aug 08, 2024 01:49 PM Reporting Lab: [address] [address] Performing Lab: [address] [address] VITAMIN D (25-OH) <13 ng/mL L 20-50 Social History: Smoking Status (Most current) and Tobacco Use (All prior to encounter date) This section includes the most current, and the historical, smoking and tobacco- related health factors from the [place] facility where the Encounter took place. Current Smoking Status This section includes the most current smoking, or tobacco-related health factor, from the [place] facility where the Encounter took place. Date/Time Current Smoking Status Comment Deana ity Jun 03, 2023 08:58 AM [place]-TOBACCO FORMER USER [facility] Tobacco Use History This section includes a history of the smoking, or tobacco-related health factors, that were collected on or before the date of the Encounter. The data comes from the [place] facility where the Encounter took place. Date/Time Smoking Status/Tobacco Use Comment F acility Jun 03, 2023 08:58 AM [place]-TOBACCO QUIT 15 YRS OR MORE [facility] Advance Directives: All historical and current Section Date Range: From patient's date of to the date document was created. This section includes ALL of a patient's completed or amended [place] Advance and Rescinded Directives. The entries below indicate that a directive exists for the patient, but an actual copy is not included with this document. The data comes from all [place] facilities. Date Advance Directives Provider Source Jul 15, 2023 ADVANCE DIRECTIVE ROGER PEDRAZA Jun 30, 2019 ADVANCE DIRECTIVE SHERRYCASSIE [facility] Encounter Notes: All associated encounter notes This section contains the clinical notes associated to the Encounter. Date/Time Encounter Note(s) Provider Source Jul 31, 2024 08:37 AM NONVA NOTE: LOCAL TITLE: [facility] CARE COORD PLAN STANDARD TITLE: NONVA NOTE DATE OF NOTE: JUL 31, 2024@08:37 ENTRY DATE: JUL 31, 2024@08:38:06 AUTHOR: MARY FLORES COSIGNER: URGENCY: STATUS: COMPLETED Emergency Notification Intake Date Presenting to the Facility: Jul Method of Contact: Notified from [facility] worklist Notification ID: [id number] [facility] Referral #: [id number] Replaced By [facility] Name: Hospital: [facility] Address: City: [place] State: [place] Zip Code: Phone : Community Facility Point of Contact: Name: Cassie Phone: Chief complaint: N17.0 Primary Diagnosis: Disposition Admitted Route of Admission: ER Date of Admission: Jul Admitting Diagnosis: N17.0 Community Care Provider: Chaim Level of Care: /es/ MARY MORRIS Signed: 07/31/2024 08:45 Receipt Acknowledged By: * AWAITING SIGNATURE * RAMON MCCARTHY * AWAITING SIGNATURE * ANASTASIYA PRIEST 08/01/2024 14:26 /es/ PABLITO PARKER NP NURSE PRACTITIONER for PATRICIARADHA Giles PEREZ 08/01/2024 10:40 /es/ JANINA ROWE RN REGISTERED NURSE * AWAITING SIGNATURE * SHERIE EL * AWAITING SIGNATURE * ALICIA SEQUEIRA DAWN [facility]
--- OUTSIDE RECORDS SUMMARY | 2024-10-17 15:26 | XMS_ITS ---
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 [place] [facility] [place] Address [address] [place] [address] Care Team Providers Care Instrumentation Technologist Name Role Phone GURPREET PEREZ Primary Care [...] Harding's Name Patient's Relationship to Policy Harding [facility] (WNR) MEDICARE ADVANTAGE [facility] (WNR) Oct 25, 2011 [facility] [id number] PATIENT Selected Encounter This section includes the information on record at [place] for the Encounter. Date/Time Encounter Type Encounter Description Reason Pro vider Source Aug 01, 2024 12:52 PM Outpatient Encounter PRIMARY CARE/MEDICINE I[facility] Encounter Template Text not used by [place] Plan of Treatment: Future Appointments (+ 6 [...] 20 appointments. The data comes from all [facility]. Appointment Date/Time Appointment Type Appointme nt Facility Name Aug 05, 2024 08:00 AM [facility] Aug 22, 2024 09:30 AM [facility]INE [facility] Aug 29, 2024 08[facility]00 AM [facility] Sep 20, 2024 09:00 AM AM[facility]ULATORY - MEDICINE [facility] Oct 03, 2024 11:30 AM [facility] Active, Pending, and Scheduled Orders This section includes a listing of several types of active, pending, and scheduled orders, including clinic medications orders, diagnostic test orders, procedure orders and consult orders; where the start date of the order is 45 days before the date of the Encounter or 45 days after the date of theEncounter. The data comes from all [facility]. Test Date/Time Test Type Test Details Facility Name Aug 28, 2024 04:23 PM Consult Order [facility] NON-SKILLED HOME HEALTH AIDE Cons [facility] Lab Results: +/- 30 days of the encounter This section includes the Chemistry and Hematology Lab Results on record with [place] for the patient. Radiology Reports and Pathology Reports are provided separately, in subsequent sections. Lab Results This section contains the Chemistry/Hematology Results that were resulted 30 days before or 30 daysafter the date of the Encounter. Date/Time Source Result Type Result - Unit Interpretation Reference Range Comment Aug 22, 2024 10:26 AM [place] FOLATE (OX) Specimen Type: SERUM No comment entered. Ordering Provider: COURTNEY FAROOQ Report Released Date/Time: Aug 22, 2024 10:17 AM Reporting Lab: [facility] [address] [facility] [address] Performing Lab: [facility] [address] [facility] [address] FOLATE (WROX) 3.90 ng/mL L >5.2 Aug 22, 2024 10:26 AM [facility] RETICULOCYTES Specimen Type: BLOOD Comment: Smear reviewed, auto CBC w/Diff accepted. Ordering Provider: COURTNEY FAROOQ Report Released Date/Time: Aug 22, 2024 10:17 AM Reporting Lab: [address] [address] Performing Lab: [address] [address] RETIC % 2.6 H 0.6-2.0 RETIC, ABS 91.6 10*3/uL H 30.0-90.0 RET-HE % 29.6 27.9-42.0 Aug 22, 2024 10:26 AM [facility] IRON & TIBC PANEL Specimen Type: SERUM No comment entered. Ordering Provider: COURTNEY FAROOQ Report Released Date/Time: Aug 22, 2024 10:17 AM Reporting Lab: [address] [address] Performing Lab: [address] [address] TIBC 210 ug/dL 204-475 IRON 43 ug/dL 40-160 Transferrin Saturation 20.5 20.0-50.0 Transferrin (TRF) 159 mg/dL L 200-360 Aug 22, 2024 10:26 AM [facility] CBC AND DIFF (AUTO) Specimen Type: BLOOD Comment: Smear reviewed, auto CBC w/Diff accepted. Ordering Provider: COURTNEY FAROOQ Report Released Date/Time: Aug 22, 2024 10:17 AM Reporting Lab: [address] [address] Performing Lab: [address] [address] WBC 7.35 10*3/uL 4.50-11.00 RBC 3.51 10*6/uL [...] H 0.00-0.00 Aug 22, 2024 10:26 AM [place] FERRITIN Specimen Type: SERUM No comment entered. Ordering Provider: COURTNEY FAROOQ Report Released Date/Time: Aug 22, 2024 10:17 AM Reporting Lab: [address] [address] Performing Lab: [address] [address] FERRITIN 1130 ng/mL H 20-300 Aug 22, 2024 10:26 AM [place] VITAMIN B12 Specimen Type: SERUM No comment entered. Ordering Provider: COURTNEY FAROOQ Report Released Date/Time: Aug 22, 2024 10:17 AM Reporting Lab: [address] [address] Performing Lab: [address] [address] VITAMIN B12 378 pg/mL 200-900 Aug 22, 2024 10:26 AM [place] BASIC METABOLIC PANEL (non-fasting) Spe cimen Type: SERUM No comment entered. Ordering Provider: COURTNEY FAROOQ Report Released Date/Time: Aug 22, 2024 10:17 AM Reporting Lab: [address] [address] Performing Lab: [address] [place] [address] UREA NITROGEN 12 mg/dL 7-25 GLUCOSE 104 mg/dL H 65-100 SODIUM 136 mmol/L 135-145 POTASSIUM 4.7 mmol/L 3.5-5.0 CHLORIDE 106 mmol/L 100-110 CO2 18 meq/L L 20-30 CREATININE, Serum 1.15 mg/dL 0.50-1.40 eGFR(CKD-EPI 2020) 65 mL/min >60 Aug 22, 2024 10:26 AM [place] LIVER FUNCTION Specimen Type: SERUM No comment entered. Ordering Provider: COURTNEY FAROOQ Report Released Date/Time: Aug 22, 2024 10:17 AM Reporting Lab: [address] [address] Performing Lab: [address] [address] PROTEIN,TOTAL 6.0 g/dL 6.0-8.3 ALBUMIN 3.1 g/dL L 3.5-5.0 ALKALINE PHOSPHATASE 138 U/L 40-150 AST 27 U/L 5-34 ALT 36 U/L BILIRUBIN, TOTAL 1.0 mg/dL 0.2-1.2 Aug 16, 2024 01:58 PM [facility] URINALYSIS Specimen Type: URINE Comment: If Glucose = >500 and Ketones are positive, please alert the Physician. Ordering Provider: COURTNEY FAROOQ Report Released Date/Time: Aug 08, 2024 01:49 PM Reporting Lab: [address] [address] Performing Lab: [address] [address] UA COLOR Light-Yellow Yellow UA APPEARANCE Clear Clear UA GLUCOSE Normal mg/dL Negative UA KETONES NEGATIVE mg/dL Negative UA BLOOD NEGATIVE mg/dL Negative UA PROTEIN 10 mg/dL Negative UA NITRITE NEGATIVE mg/dL Negative UA BILIRUBIN NEGATIVE mg/dL Negative UA SPECIFIC GRAVITY 1.017 1.016-1.02 2 UA pH 6.0 5.0-9.0 UA UROBILINOGEN Normal mg/dL <2.0 UA LEUKOCYTE TRACE Negative Aug 16, 2024 01:58 PM [facility] MICROALBUMIN CREATININE RATIO PANEL Specimen Type: URINE No comment entered. Ordering Provider: COURTNEY FAROOQ Report Released Date/Time: Aug 08, 2024 01:49 PM Reporting Lab: [facility] [address] [facility] [address] Performing Lab: [address] [address] MICROALBUMIN/CR EATININE RATIO 7.3 mg/g 0-29.9 MICROALBUMIN,QU ANTITATIVE 0.8 mg/dL RR UNAVAIL CREATININE URINE 109.38 mg/dL Aug 16, 2024 01:58 PM [facility] MICROSCOPIC AUTOMATED, URINE Specimen Type: URINE Comment: If Glucose = >500 and Ketones are positive, please alert the Physician. Ordering Provider: COURTNEY FAROOQ Report Released Date/Time: Aug 08, 2024 01:49 PM Reporting Lab: [address] [address] Performing Lab: [facility] [address] [facility] [address] UA WBC 0-5 /[HPF] 0-5 UA BACTERIA 1+ /[HPF] NoneObs UA MUCUS FEW /[LPF] Trace UA HYALINE CASTS 2-4 /[LPF] 0-2 UA RBC 3-5 /[HPF] 0-3 Aug 15, 2024 10:14 AM [facility] BASIC METABOLIC PANEL (fasting) Specimen Type: SERUM No comment entered. Ordering Provider: COURTNEY FAROOQ Report Released Date/Time: Aug 08, 2024 01:49 PM Reporting Lab: [address] [address] Performing Lab: [address] [address] UREA NITROGEN 28 mg/dL H 7-25 GLUCOSE 98 mg/dL 65-100 SODIUM 133 mmol/L L 135-145 POTASSIUM 5.3 mmol/L H 3.5-5.0 CHLORIDE 106 mmol/L 100-110 CO2 15 meq/L L 20-30 CREATININE, Serum 1.31 mg/dL 0.50-1.40 eGFR(CKD-EPI 2020) 55 mL/min L >60 Aug 15, 2024 10:14 AM [facility] LIPID PANEL FASTING Specimen Type: SERUM No comment entered. Ordering Provider: COURTNEY FAROOQ Report Released Date/Time: Aug 08, 2024 01:49 PM Reporting Lab: [address] [address] Performing Lab: [address] [address] CHOLESTEROL 69 mg/dL TRIGLYCERIDE 88 mg/dL 0-150 LDL calculated 16 mg/dL 0-129 CHOL/HDL 2.0 HDL CHOLESTEROL 35 mg/dL L 40-60 Aug 15, 2024 10:14 AM [facility] LIVER FUNCTION Specimen Type: SERUM No comment entered. Ordering Provider: COURTNEY FAROOQ Report Released Date/Time: Aug 08, 2024 01:49 PM Reporting Lab: [address] [address] Performing Lab: [address] [address] PROTEIN,TOTAL 6.2 g/dL 6.0-8.3 ALBUMIN 3.2 g/dL L 3.5-5.0 ALKALINE PHOSPHATASE 103 U/L 40-150 AST 17 U/L 5-34 ALT 25 U/L BILIRUBIN, TOTAL 0.9 mg/dL 0.2-1.2 Aug 15, 2024 10:14 AM [facility] HEMOGLOBIN A1C PANEL Specimen Type: BLOOD Comment: [...] Aug 08, 2024 01:49 PM Reporting Lab: [address] [address] Performing Lab: [facility] [address] [facility] [address] HEMOGLOBIN A1C 6.7 H 4.0-5.6 Aug 15, 2024 10:14 AM [facility] TSH Specimen Type: SERUM No comment entered. Ordering Provider: COURTNEY FAROOQ Report Released Date/Time: Aug 08, 2024 01:49 PM Reporting Lab: [facility] [address] [facility] [address] [facility]: [facility] [address] [facility] [address] TSH 1.84 u[IU]/mL 0.35-5.00 Aug 15, 2024 10:14 AM [facility] CBC AND DIFF (AUTO) Specimen Type: BLOOD No comment entered. Ordering Provider: COURTNEY FAROOQ Report Released Date/Time: Aug 08, 2024 01:49 PM Reporting Lab: [facility] [address] [facility] [address] Performing Lab: [facility] [address] [facility] [address] WBC 7.54 10*3/uL 4.50-11.00 RBC 3.63 10*6/uL [...] 10*3/uL 0.00-0.00 Aug 15, 2024 10:14 AM [facility] CALCIUM Specimen Type: SERUM No comment entered. Ordering Provider: COURTNEY FAROOQ Report Released Date/Time: Aug 08, 2024 01:49 PM Reporting Lab: [address] [address] Performing Lab: [address] [address] CALCIUM 8.5 mg/dL 8.5-10.2 Aug 15, 2024 10:14 AM [facility] URIC ACID Specimen Type: SERUM No comment entered. Ordering Provider: COURTNEY FAROOQ Report Released Date/Time: Aug 08, 2024 01:49 PM Reporting Lab: [facility] [address] [facility] [address] Performing Lab: [address] [address] URIC ACID 7.9 mg/dL H 3.5-7.2 Aug 15, 2024 10:14 AM [facility] VITAMIN D (25-OH) Specimen Type: SERUM No comment entered. Ordering Provider: COURTNEY FAROOQ Report Released Date/Time: Aug 08, 2024 01:49 PM Reporting Lab: [address] [address] Performing Lab: [address] [address] VITAMIN D (25-OH) <13 ng/mL L 20-50 Social History: Smoking Status (Most current) and Tobacco Use (All prior to encounter date) This section includes the most current, and the historical, smoking and tobacco- related health factors from the [place] facility where the Encounter took place. Current Smoking Status This section includes the most current smoking, or tobacco-related health factor, from the [place] facility where the Encounter took place. Date/Time Current Smoking Status Comment Deana ity Jun 03, 2023 08:58 AM [place] FORMER US[place] [facility] Tobacco Use History This section includes a history of the smoking, or tobacco-related health factors, that were collected on or before the date of the Encounter. The data comes from the [place] facility where the Encounter took place. Date/Time Smoking Status/Tobacco Use Comment F acility Jun 03, 2023 08:58 AM [place] 15 YRS OR MORE [facility] Advance Directives: All historical and current Section Date Range: From patient's date of to the date document was created. This section includes ALL of a patient's completed or amended [place] Advance and Rescinded Directives. The entries below indicate that a directive exists for the patient, but an actual copy is not included with this document. The data comes from all [place] facilities. Date Advance Directives Provider Source Jul 15, 2023 ADVANCE DIRECTIVE ROGER PEDRAZA Jun 30, 2019 ADVANCE DIRECTIVE CASSIE POWELL [facility] Encounter Notes: All associated encounter notes This section contains the clinical notes associated to the Encounter. Date/Time Encounter Note(s) Provider Source Aug 01, 2024 01:08 PM ADMINISTRATIVE NOT E: LOCAL TITLE: ADMINISTRATIVE NOTE STANDARD TITLE: ADMINISTRATIVE NOTE DATE OF NOTE: AUG 01, 2024@13:08 ENTRY DATE: AUG 01, 2024@13:09 AUTHOR: MAXIMILIANO KUMARI EXP COSIGNER: URGENCY: STATUS: COMPLETED ADMINISTRATIVE NOTE Has ADDENDA SPOKE WITH SPOUSE - ON COMM AUTH - SHE WOULD LIKE TO SCHEDULE ANNUAL VISIT FOR WHEN DR. Rohini GUTIÉRREZ /inge/ MAXIMILIANO KUMARI LPN LPN Signed: 08/01/2024 13:14 Receipt Acknowledged By: 08/01/2024 14:44 /mini MORRIS 08/01/2024 ADDENDUM STATUS: COMPLETED Geospatial Analyst scheduled for 10/26/2024 at 9:30am for annual appt. /es/ JHON MORRIS Signed: 08/01/2024 14:49 MAXIMILIANO KUMARI Aug 01, 2024 01:04 PM MEDICATION MGT NOT E: LOCAL TITLE: OUTPATIENT MEDICATION REQUEST STANDARD TITLE: MEDICATION MGT NOTE DATE OF NOTE: AUG 01, 2024@13:04 ENTRY DATE: AUG 01, 2024@13:04:21 AUTHOR: MAXIMILIANO KUMARI EXP COSIGNER: URGENCY: STATUS: COMPLETED Medication Request Date of Request: Jul Is this a New Medication? No PLEASE RENEW AND MAIL UNDERPAD,BED ULTRASORB [id number] USE 1 UNDERPAD ACTIVE TOPICALLY TWICE DAILY NEEDED URINARY INCONTINENCE /es/ MAXIMILIANO KUMARI LPN LPN Signed: 08/01/2024 13:08 Receipt Acknowledged By: 08/22/2024 10:26 /es/ GURPREET PEREZ MD PHYSICIAN MAXIMILIANO KUMARI
--- OUTSIDE RECORDS SUMMARY | 2024-10-17 15:26 | XMS_ITS | Encounter Summary ---
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 [place] [facility] [place] [facility] [place] Address [address] [place] [address] Care Team Providers Care Industrial Gas Service Helper Name Role Phone GURPREET PEREZ Primary [...] Harding's Name Patient's Relationship to Policy Harding [facility] PLAN [facility] (WNR) MEDICARE ADVANTAGE [facility] (WNR) Oct 25, 2011 [facility] [id number] FAT[address] GOMEZ PATIENT Selected Encounter This section includes the information on record at [place] for the Encounter. Date/Time Encounter Type Encounter Description Reason Pro vider Source Aug 16, 2024 08:03 AM Outpatient Encounter TELEPHONE/REHAB AND SUPPORT IHE Encounter Template Text not used by [...] 20 appointments. The data comes from all [facility]. Appointment Date/Time Appointment Type Appointme nt Facility Name Aug 22, 2024 09:30 AM AMBULATORY - MEDICINE [facility] Aug 29, 2024 08:00 AM [facility] Sep 20, 2024 09:00 AM AMBULATORY - MEDICINE [facility] Oct 03, 2024 11:30 AM AMBULATORY - MEDICINE [facility] Active, Pending, and Scheduled Orders This section includes a listing of several types of active, pending, and scheduled orders, including clinic medications orders, diagnostic test orders, procedure orders and consult orders; where the start date of the order is 45 days before the date of the Encounter or 45 days after the date of theEncounter. The data comes from all [facility]. Test Date/Time Test Type Test Details Facility Name Aug 28, 2024 04:23 PM Consult Order [facility] NON-SKILLED HOME HEALTH AIDE Cons Core Analysis Operator's Choice [facility] Sep 20, 2024 10:06 AM Consult Order NUTRITION ASSESSMENT/EDUCATION/SPO PC OUTPT Cons Core Analysis Operator's [facility] Lab Results: +/- 30 days of the [...] Range Comment Aug 22, 2024 10:26 AM JAYUYA FOLATE (OX) Specimen Type: SERUM No comment entered. Ordering Provider: COURTNEY FAROOQ Report Released Date/Time: Aug 22, 2024 10:17 AM Reporting Lab: [facility] [address] [address] Performing Lab: [facility] [address] [facility] [address] FOLATE (WROX) 3.90 ng/mL L >5.2 Aug 22, 2024 10:26 AM JAYUYA RETICULOCYTES Specimen Type: BLOOD Comment: Smear reviewed, auto CBC w/Diff accepted. Ordering Provider: COURTNEY FAROOQ Report Released Date/Time: Aug 22, 2024 10:17 AM Reporting Lab: [address] [address] Performing Lab: [address] [address] RETIC % 2.6 H 0.6-2.0 RETIC, ABS 91.6 10*3/uL H 30.0-90.0 RET-HE % 29.6 27.9-42.0 Aug 22, 2024 10:26 AM JAYUYA IRON & TIBC PANEL Specimen Type: SERUM No comment entered. Ordering Provider: COURTNEY FAROOQ Report Released Date/Time: Aug 22, 2024 10:17 AM Reporting Lab: [address] [address] Performing Lab: [address] [address] TIBC 210 ug/dL 204-475 IRON 43 ug/dL 40-160 Transferrin Saturation 20.5 20.0-50.0 Transferrin (TRF) 159 mg/dL L 200-360 Aug 22, 2024 10:26 AM JAYUYA CBC AND DIFF (AUTO) Specimen Type: BLOOD Comment: Smear reviewed, auto CBC w/Diff accepted. Ordering Provider: COURTNEY FAROOQ Report Released Date/Time: Aug 22, 2024 10:17 AM Reporting Lab: [address] [address] Performing Lab: [address] [address] WBC 7.35 10*3/uL 4.50-11.00 RBC 3.51 10*6/uL [...] H 0.00-0.00 Aug 22, 2024 10:26 AM JAYUYA FERRITIN Specimen Type: SERUM No comment entered. Ordering Provider: COURTNEY FAROOQ Report Released Date/Time: Aug 22, 2024 10:17 AM Reporting Lab: [facility] [address] [address] Performing Lab: [facility] [address] FERRITIN 1130 ng/mL H 20-300 Aug 22, 2024 10:26 AM JAYUYA VITAMIN B12 Specimen Type: SERUM No comment entered. Ordering Provider: COURTNEY FAROOQ Report Released Date/Time: Aug 22, 2024 10:17 AM Reporting Lab: [facility] [address] Performing Lab: [facility] [address] [address] VITAMIN B12 378 pg/mL 200-900 Aug 22, 2024 10:26 AM JAYUYA BASIC METABOLIC PANEL (non-fasting) Spe cimen Type: SERUM No comment entered. Ordering Provider: COURTNEY FAROOQ Report Released Date/Time: Aug 22, 2024 10:17 AM Reporting Lab: [address] [address] Performing Lab: [address] [address] UREA NITROGEN 12 mg/dL 7-25 GLUCOSE 104 mg/dL H 65-100 SODIUM 136 mmol/L 135-145 POTASSIUM 4.7 mmol/L 3.5-5.0 CHLORIDE 106 mmol/L 100-110 CO2 18 meq/L L 20-30 CREATININE, Serum 1.15 mg/dL 0.50-1.40 eGFR(CKD-EPI 2020) 65 mL/min >60 Aug 22, 2024 10:26 AM JAYUYA LIVER FUNCTION Specimen Type: SERUM No comment entered. Ordering Provider: COURTNEY FAROOQ Report Released Date/Time: Aug 22, 2024 10:17 AM Reporting Lab: [address] [address] Performing Lab: [address] [address] PROTEIN,TOTAL 6.0 g/dL 6.0-8.3 ALBUMIN 3.1 g/dL L 3.5-5.0 ALKALINE PHOSPHATASE 138 U/L 40-150 AST 27 U/L 5-34 ALT 36 U/L BILIRUBIN, TOTAL 1.0 mg/dL 0.2-1.2 Aug 16, 2024 01:58 PM [facility] MICROALBUMIN CREATININE RATIO PANEL Specimen Type: URINE No comment entered. Ordering Provider: COURTNEY FAROOQ Report Released Date/Time: Aug 08, 2024 01:49 PM Reporting Lab: [address] [address] Performing Lab: [address] [address] MICROALBUMIN/CR EATININE RATIO 7.3 mg/g 0-29.9 MICROALBUMIN,QU ANTITATIVE 0.8 mg/dL RR UNAVAIL CREATININE URINE 109.38 mg/dL Aug 16, 2024 01:58 PM [facility] URINALYSIS Specimen Type: URINE Comment: If Glucose = >500 and Ketones are positive, please alert the Physician. Ordering Provider: COURTNEY FAROOQ Report Released Date/Time: Aug 08, 2024 01:49 PM Reporting Lab: [facility] [address] [facility] [address] Performing Lab: [facility] [address] [facility] [address] UA COLOR Light-Yellow Yellow UA APPEARANCE Clear Clear UA GLUCOSE Normal mg/dL Negative UA KETONES NEGATIVE mg/dL Negative UA BLOOD NEGATIVE mg/dL Negative UA PROTEIN 10 mg/dL Negative UA NITRITE NEGATIVE mg/dL Negative UA BILIRUBIN NEGATIVE mg/dL Negative UA SPECIFIC GRAVITY 1.017 1.016-1.02 2 UA pH 6.0 5.0-9.0 UA UROBILINOGEN Normal mg/dL <2.0 UA LEUKOCYTE TRACE Negative Aug 16, 2024 01:58 PM [facility] MICROSCOPIC AUTOMATED, URINE Specimen Type: URINE Comment: If Glucose = >500 and Ketones are positive, please alert the Physician. Ordering Provider: COURTNEY FAROOQ Report Released Date/Time: Aug 08, 2024 01:49 PM Reporting Lab: [address] [address] Performing Lab: [address] [address] UA WBC 0-5 /[HPF] 0-5 UA BACTERIA 1+ /[HPF] NoneObs UA MUCUS FEW /[LPF] Trace UA HYALINE CASTS 2-4 /[LPF] 0-2 UA RBC 3-5 /[HPF] 0-3 Aug 15, 2024 10:14 AM [facility] BASIC METABOLIC PANEL (fasting) Specimen Type: SERUM No comment entered. Ordering Provider: COURTNEY FAROOQ Report Released Date/Time: Aug 08, 2024 01:49 PM Reporting Lab: [address] [address] Performing Lab: [address] [address] UREA NITROGEN 28 mg/dL H 7-25 GLUCOSE 98 mg/dL 65-100 SODIUM 133 mmol/L L 135-145 POTASSIUM 5.3 mmol/L H 3.5-5.0 CHLORIDE 106 mmol/L 100-110 CO2 15 meq/L L 20-30 CREATININE, Serum 1.31 mg/dL 0.50-1.40 eGFR(CKD-EPI 2020) 55 mL/min L >60 Aug 15, 2024 10:14 AM [facility] LIPID PANEL FASTING Specimen Type: SERUM No comment entered. Ordering Provider: COURTNEY FAROOQ Report Released Date/Time: Aug 08, 2024 01:49 PM Reporting Lab: [address] [address] Performing Lab: [address] [address] CHOLESTEROL 69 mg/dL TRIGLYCERIDE 88 mg/dL 0-150 LDL calculated 16 mg/dL 0-129 CHOL/HDL 2.0 HDL CHOLESTEROL 35 mg/dL L 40-60 Aug 15, 2024 10:14 AM [facility] LIVER FUNCTION Specimen Type: SERUM No comment entered. Ordering Provider: COURTNEY FAROOQ Report Released Date/Time: Aug 08, 2024 01:49 PM Reporting Lab: [address] [address] Performing Lab: [address] [address] PROTEIN,TOTAL 6.2 g/dL 6.0-8.3 ALBUMIN 3.2 g/dL L 3.5-5.0 ALKALINE PHOSPHATASE 103 U/L 40-150 AST 17 U/L 5-34 ALT 25 U/L BILIRUBIN, TOTAL 0.9 mg/dL 0.2-1.2 Aug 15, 2024 10:14 AM [facility] HEMOGLOBIN A1C PANEL Specimen Type: [...] 08, 2024 01:49 PM Reporting Lab: [address] [address] Performing Lab: [facility] [place] [facility] [address] [facility] [address] HEMOGLOBIN A1C 6.7 H 4.0-5.6 Aug 15, 2024 10:14 AM [facility] TSH Specimen Type: SERUM No comment entered. Ordering Provider: COURTNEY FAROOQ Report Released Date/Time: Aug 08, 2024 01:49 PM Reporting Lab: [facility] [place] [facility] [address] [facility] [address] Performing Lab: [facility]ITAL[facility] [address] [facility] [address] TSH 1.84 u[IU]/mL 0.35-5.00 Aug 15, 2024 10:14 AM [facility] CALCIUM Specimen Type: SERUM No comment entered. Ordering Provider: COURTNEY FAROOQ Report Released Date/Time: Aug 08, 2024 01:49 PM Reporting Lab: [facility]ITAL[facility] [address] [facility] [address] Performing Lab: [facility]ITALUSETS [facility] [address] [facility] [address] CALCIUM 8.5 mg/dL 8.5-10.2 Aug 15, 2024 10:14 AM [facility] CBC AND DIFF (AUTO) Specimen Type: BLOOD No comment entered. Ordering Provider: COURTNEY FAROOQ Report Released Date/Time: Aug 08, 2024 01:49 PM Reporting Lab: [facility]ITAL[facility] [address] [facility] [address] Performing Lab: [facility]ITALUSETS [facility] [address] [facility] [address] WBC 7.54 10*3/uL 4.50-11.00 RBC 3.63 10*6/uL [...] 10*3/uL 0.00-0.00 Aug 15, 2024 10:14 AM [facility] URIC ACID Specimen Type: SERUM No comment entered. Ordering Provider: COURTNEY FAROOQ Report Released Date/Time: Aug 08, 2024 01:49 PM Reporting Lab: [address] [address] Performing Lab: [address] [address] URIC ACID 7.9 mg/dL H 3.5-7.2 Aug 15, 2024 10:14 AM [facility] VITAMIN D (25-OH) Specimen Type: SERUM No comment entered. Ordering Provider: COURTNEY FAROOQ Report Released Date/Time: Aug 08, 2024 01:49 PM Reporting Lab: [address] [address] Performing Lab: [address] [address] VITAMIN D (25-OH) <13 ng/mL L 20-50 [...] 03, 2023 08:58 AM [place]-TOBACCO FORMER USER [facility] Tobacco Use History This section includes a history of the smoking, or tobacco-related health factors, that were collected on or before the date of the Encounter. The data comes from the [place] facility where the Encounter took place. Date/Time Smoking Status/Tobacco Use Comment F acility Jun 03, 2023 08:58 AM [place]-TOBACCO QUIT 15 YRS OR MORE [facility] Advance Directives: All historical and [...] Jun 30, 2019 ADVANCE DIRECTIVE CASSIE POWELL [facility] Encounter Notes: All associated encounter notes This section contains the clinical notes associated to the Encounter. Date/Time Encounter Note(s) Provider Source Aug 16, 2024 07:30 AM OCCUPATIONAL MEDIC INE CONSULT: LOCAL TITLE: CONSULT REPORT/OCCUPATIONAL THERAPY STANDARD TITLE: OCCUPATIONAL MEDICINE CONSULT DATE OF NOTE: AUG 16, 2024@07:30 ENTRY DATE: AUG 16, 2024@08:10:20 AUTHOR: PRITI GONZALES EXP COSIGNER: GURPREET PEREZ URGENCY: STATUS: COMPLETED Telephone: contact with SO, was not available for participation in call SO on communication authroization Initial Evaluation date: Jul Treatment Time: 25 minutes Diagnosis: Gait Abnormality Provider: PCP Maren OT Treatment Precautions: fall risk Patient identified by full name and date of Subjective/Objective: s/p hospitalization, several falls in last week, trying to manage in their narrow bathroom. In need of safety equipment. Pain: n/a to call Focus 1 chart review 2 screening: Home Safety DME needs Living Space: lives with , in their own condo. 1 step to enter is not able to accomodate a ramp due to ramp impeded other condo entries. Living space in on 1 level 850 Sq ft. Full bath, 2 bedroom, livingroom and kitchen. 3 Mobility: 90% wc dependent, using transport chair to navigate small space 3+ falls in past week, minimal use of walker to mobilize within the home, due to spontaneous LE giving. However is able to navigate the front step in/out of home with assistance. Bathroom: currently stand up shower/seat built in and unsafe (slides off), glass shower doors with 3-4 lip. Rhodes has 2 person assist to shower DIVISION OPERATIONS SPECIALIST and and difficult due to narrow space, and shower door impedes space. Current: making modifications needed for immediate improvement of safety by removing shower doors, replace with curtain, slide in shower chair versus use of narrow built in shower chair. Removing Toilet safety frame to encourage stand pivot transfer to toilet using grab bars instead of frame. TripbodA justina: requestd to explore option of reducing the shower set up to a rolling shower. Assessment: Rhodes 90% wc user, limited functional mobility due to spontaneous giving out of LE when walking/pain. Transfers/navigating stairs/in and out of shower/toileting stand pivot with assist. benefits from shower seat that swivels on track to assisst with safer transfers for more immediate option, with consideration of shower modification to make a more permanent solution. TripbodA justina application to explore options, with current set up. Plan: More immediate solutions for improving shower safety: removing glass doors, sliding swivel trak chair, with TripbodA justina option for exploring more permanent LT option. STG: Order Track chair for improving shower safety. /inge/ ROMAN GREGORY/L OCCUPATIONAL THERAPIST Signed: 08/16/2024 08:27 /inge/ GURPREET PEREZ MD PHYSICIAN Cosigned: 08/16/2024 13:00 [facility]
--- OUTSIDE RECORDS SUMMARY | 2024-10-17 15:26 | XMS_ITS | Encounter Summary ---
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 Organization [place] Address [address] [place] [address] Care Team Providers Care Brick Carrier Name Role Phone GURPREET PEREZ Primary Care [...] Harding's Name Patient's Relationship to Policy Harding [facility] HEALTH PLAN [facility] (WNR) MEDICARE ADVANTAGE [facility] (WNR) Oct 25, 2011 [facility] [id number]OMEZ PATIENT Selected Encounter This section includes the information on record at [place] for the Encounter. Date/Time Encounter Type Encounter Description Reason Pro vider Source Feb 14, 2024 06:53 AM Outpatient Encounter ADMIN PAT ACTIVTIES (MASNONCT) [...] 20 appointments. The data comes from all [place] treatment facilities. Appointment Date/Time Appointment Type Appointme nt Facility Name February 25, 2024 02:00 PM [facility] [place] [facility] Mar 30, 2024 10:00 AM AMBULAT[facility] [place] [facility] May 12, 2024 11:30 AM [facility] [place] [facility] Jun 05, 2024 08:00 AM [facility]UL[facility] - [facility]INE [facility] Jun 13, 2024 10:00 AM [facility] Aug 05, 2024 08:00 AM AMBULATORY - MEDICINE [facility] Advance Directives: All historical and current Section Date Range: From patient's date of to the date document was created. This section includes ALL of a patient's completed or amended [place] Advance and Rescinded Directives. The entries below indicate that a directive exists for the patient, but an actual copy is not included with this document. The data comes from all [facility]. Date Advance Directives Provider Source Jul 15, 2023 ADVANCE DIRECTIVE ROGER PEDRAZA Jun 30, 2019 ADVANCE DIRECTIVE [facility]OW[facility]LL [facility] Encounter Notes: All associated encounter notes This section contains the clinical notes associated to the Encounter. Date/Time Encounter Note(s) Provider Source Feb 14, 2024 06:53 AM CAREGIVER CERTIFIC ATE: LOCAL TITLE: CSP ADMINISTRATIVE NOTE STANDARD TITLE: CAREGIVER CERTIFICATE DATE OF NOTE: FEB 14, 2024@06:53 ENTRY DATE: FEB 14, 2024@06:53:39 AUTHOR: WALT CARDOSO COSIGNER: URGENCY: STATUS: COMPLETED PCAFC Appeal Decision Note: This [place] and his Caregiver filed a Clinical Level One Appeal on 01/19/2024 regarding their Program of Comprehensive Assistance for Family Caregivers(PCAFC) application. Date of Decision Being Appealed/Reviewed: 11/24/2023 Appeal Decision Date: 02/08/2024 Appeal Decision: Denied Details of Appeal Decision are: PCAFC Initial Application Determination request for PCAFC benefits is denied. [place] does not require personal care services for 6 months based on: (i) an inability to perform one or more activities of daily living; (ii) a need for supervision or protection based on symptoms or residuals of neurological or other impairment or injury; (iii) a need for regular or extensive instruction or supervision without which the ability of the to function in daily life would be seriously impaired. /es/ SAHVIN CARDOSO TANK CLEANER Glass Bulb Silverer/GEC/Caregiver Foreign Exchange Trader Signed: 02/14/2024 07:24 Receipt Acknowledged By: 02/14/2024 08:43 /es/ WALT [facility] ([id number])
--- OUTSIDE RECORDS SUMMARY | 2024-10-17 15:26 | XMS_ITS | Encounter Summary ---
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 [place] Address [address] [place] [id number] Care Team Providers Care Rn Integrated Name Role Phone GURPREET PEREZ Primary Care [...] Harding's Name Patient's Relationship to Policy Harding [facility] PLAN [facility] (WNR) MEDICARE ADVANTAGE [facility] (WNR) Oct 25, 2011 [facility] [id number] PATIENT Selected Encounter This section includes the information on record at [place] for the Encounter. Date/Time Encounter Type Encounter [...] 20 appointments. The data comes from all [facility] treatment facilities. Appointment Date/Time Appointment Type Appointme nt Facility Name Aug 05, 2024 08:00 AM [facility] Aug 22, 2024 09:30 AM [facility] - MEDICINE [facility] Aug 29, 2024 08:00 AM [facility] Sep 20, 2024 09:00 AM AMBULATORY - MEDICINE [facility] Oct 03, 2024 11:30 AM [facility] Active, Pending, and Scheduled Orders This section includes a listing of several types of active, pending, and scheduled orders, including clinic medications orders, diagnostic test orders, procedure orders and consult orders; where the start date of the order is 45 days before the date of the Encounter or 45 days after the date of theEncounter. The data comes from all [facility]. Test Date/Time Test Type Test Details Facility Name Aug 28, 2024 04:23 PM Consult Order [facility] NON-SKILLED HOME HEALTH AIDE Cons [employer]ical [employer] Party's Choice [facility] Lab Results: +/- 30 days of the encounter This section includes the Chemistry and Hematology Lab Results on record with [place] for the patient. Radiology Reports and Pathology Reports are provided separately, in subsequent sections. Lab Results This section contains the Chemistry/Hematology Results that were resulted 30 days before or 30 daysafter the date of the Encounter. Date/Time Source Result Type Result - Unit Interpretation Reference Range Comment Aug 22, 2024 10:26 AM [place] FOLATE (OX) Specimen Type: SERUM No comment entered. Ordering Provider: COURTNEY FAROOQ Report Released Date/Time: Aug 22, 2024 10:17 AM Reporting Lab: [facility] [address] [address] Performing Lab: [facility] [address] [facility] [address] FOLATE (WROX) 3.90 ng/mL L >5.2 Aug 22, 2024 10:26 AM [place] RETICULOCYTES Specimen Type: BLOOD Comment: Smear reviewed, auto CBC w/Diff accepted. Ordering Provider: COURTNEY FAROOQ Report Released Date/Time: Aug 22, 2024 10:17 AM Reporting Lab: [facility] [address] [address] Performing Lab: [address] [address] RETIC % 2.6 H 0.6-2.0 RETIC, ABS 91.6 10*3/uL H 30.0-90.0 RET-HE % 29.6 27.9-42.0 Aug 22, 2024 10:26 AM [place] CBC AND DIFF (AUTO) Specimen Type: BLOOD Comment: Smear reviewed, auto CBC w/Diff accepted. Ordering Provider: COURTNEY FAROOQ Report Released Date/Time: Aug 22, 2024 10:17 AM Reporting Lab: [address] [address] Performing Lab: [address] [address] WBC 7.35 10*3/uL 4.50-11.00 RBC 3.51 10*6/uL [...] H 0.00-0.00 Aug 22, 2024 10:26 AM [place] IRON & TIBC PANEL Specimen Type: SERUM No comment entered. Ordering Provider: COURTNEY FRAOOQ Report Released Date/Time: Aug 22, 2024 10:17 AM Reporting [facility] [address] [address] Performing Lab: [facility] [address] [address] TIBC 210 ug/dL 204-475 IRON 43 ug/dL 40-160 Transferrin Saturation 20.5 20.0-50.0 Transferrin (TRF) 159 mg/dL L 200-360 Aug 22, 2024 10:26 AM [place] FERRITIN Specimen Type: SERUM No comment entered. Ordering Provider: COURTNEY FAROOQ Report Released Date/Time: Aug 22, 2024 10:17 AM Reporting Lab: [facility] [address] [address] Performing [facility] [address] [address] FERRITIN 1130 ng/mL H 20-300 Aug 22, 2024 10:26 AM [place] VITAMIN B12 Specimen Type: SERUM No comment entered. Ordering Provider: COURTNEY FAROOQ Report Released Date/Time: Aug 22, 2024 10:17 AM Reporting Lab: [facility] [address] [address] Performing Lab: [facility] [address] [address] VITAMIN B12 378 pg/mL 200-900 Aug 22, 2024 10:26 AM [place] BASIC METABOLIC PANEL (non-fasting) Spe cimen Type: SERUM No comment entered. Ordering Provider: COURTNEY FAROOQ Report Released Date/Time: Aug 22, 2024 10:17 AM Reporting Lab: [facility] [address] [address] Per[facility]: [facility] [address] [address] UREA NITROGEN 12 mg/dL 7-25 GLUCOSE 104 mg/dL H 65-100 SODIUM 136 mmol/L 135-145 POTASSIUM 4.7 mmol/L 3.5-5.0 CHLORIDE 106 mmol/L 100-110 CO2 18 meq/L L 20-30 CREATININE, Serum 1.15 mg/dL 0.50-1.40 eGFR(CKD-EPI 2020) 65 mL/min >60 Aug 22, 2024 10:26 AM [place] LIVER FUNCTION Specimen Type: SERUM No comment entered. Ordering Provider: COURTNEY FAROOQ Report Released Date/Time: Aug 22, 2024 10:17 AM Reporting Lab: [address] [address] Performing Lab: [address] [address] PROTEIN,TOTAL 6.0 g/dL 6.0-8.3 ALBUMIN 3.1 g/dL L 3.5-5.0 ALKALINE PHOSPHATASE 138 U/L 40-150 AST 27 U/L 5-34 ALT 36 U/L BILIRUBIN, TOTAL 1.0 mg/dL 0.2-1.2 Aug 16, 2024 01:58 PM [facility] MICROALBUMIN CREATININE RATIO PANEL Specimen Type: URINE No comment entered. Ordering Provider: COURTNEY FAROOQ Report Released Date/Time: Aug 08, 2024 01:49 PM Reporting Lab: [address] [address] Performing Lab: [address] [address] MICROALBUMIN/CR EATININE RATIO 7.3 mg/g 0-29.9 MICROALBUMIN,QU ANTITATIVE 0.8 mg/dL RR UNAVAIL CREATININE URINE 109.38 mg/dL Aug 16, 2024 01:58 PM [facility] URINALYSIS Specimen Type: URINE Comment: If Glucose = >500 and Ketones are positive, please alert the Physician. Ordering Provider: COURTNEY FAROOQ Report Released Date/Time: Aug 08, 2024 01:49 PM Reporting Lab: [address] [address] Performing Lab: [facility] [address] [address] UA COLOR Light-Yellow Yellow UA APPEARANCE Clear Clear UA GLUCOSE Normal mg/dL Negative UA KETONES NEGATIVE mg/dL Negative UA BLOOD NEGATIVE mg/dL Negative UA PROTEIN 10 mg/dL Negative UA NITRITE NEGATIVE mg/dL Negative UA BILIRUBIN NEGATIVE mg/dL Negative UA SPECIFIC GRAVITY 1.017 1.016-1.02 2 UA pH 6.0 5.0-9.0 UA UROBILINOGEN Normal mg/dL <2.0 UA LEUKOCYTE TRACE Negative Aug 16, 2024 01:58 PM [facility] MICROSCOPIC AUTOMATED, URINE Specimen Type: URINE Comment: If Glucose = >500 and Ketones are positive, please alert the Physician. Ordering Provider: COURTNEY FAROOQ Report Released Date/Time: Aug 08, 2024 01:49 PM Reporting Lab: [address] [address] Performing Lab: [address] [address] UA WBC 0-5 /[HPF] 0-5 UA BACTERIA 1+ /[HPF] NoneObs UA MUCUS FEW /[LPF] Trace UA HYALINE CASTS 2-4 /[LPF] 0-2 UA RBC 3-5 /[HPF] 0-3 Aug 15, 2024 10:14 AM [facility] BASIC METABOLIC PANEL (fasting) Specimen Type: SERUM No comment entered. Ordering Provider: COURTNEY FAROOQ Report Released Date/Time: Aug 08, 2024 01:49 PM Reporting Lab: [address] [address] Performing Lab: [address] [address] UREA NITROGEN 28 mg/dL H 7-25 GLUCOSE 98 mg/dL 65-100 SODIUM 133 mmol/L L 135-145 POTASSIUM 5.3 mmol/L H 3.5-5.0 CHLORIDE 106 mmol/L 100-110 CO2 15 meq/L L 20-30 CREATININE, Serum 1.31 mg/dL 0.50-1.40 eGFR(CKD-EPI 2020) 55 mL/min L >60 Aug 15, 2024 10:14 AM [facility] LIPID PANEL FASTING Specimen Type: SERUM No comment entered. Ordering Provider: COURTNEY FAROOQ Report Released Date/Time: Aug 08, 2024 01:49 PM Reporting Lab: [facility] [address] [address] Performing Lab: [address] [address] CHOLESTEROL 69 mg/dL TRIGLYCERIDE 88 mg/dL 0-150 LDL calculated 16 mg/dL 0-129 CHOL/HDL 2.0 HDL CHOLESTEROL 35 mg/dL L 40-60 Aug 15, 2024 10:14 AM [facility] LIVER FUNCTION Specimen Type: SERUM No comment entered. Ordering Provider: COURTNEY FAROOQ Report Released Date/Time: Aug 08, 2024 01:49 PM Reporting Lab: [address] [address] Performing Lab: [address] [address] PROTEIN,TOTAL 6.2 g/dL 6.0-8.3 ALBUMIN 3.2 g/dL L 3.5-5.0 ALKALINE PHOSPHATASE 103 U/L 40-150 AST 17 U/L 5-34 ALT 25 U/L BILIRUBIN, TOTAL 0.9 mg/dL 0.2-1.2 Aug 15, 2024 10:14 AM [facility] HEMOGLOBIN A1C PANEL Specimen Type: BLOOD [...] Aug 08, 2024 01:49 PM Reporting Lab: [address] [address] Performing Lab: [address] [place] [address] HEMOGLOBIN A1C 6.7 H 4.0-5.6 Aug 15, 2024 10:14 AM [facility] TSH Specimen Type: SERUM No comment entered. Ordering Provider: COURTNEY FAROOQ Report Released Date/Time: Aug 08, 2024 01:49 PM Reporting [facility] [address] [address] Performing [facility] [address] TSH 1.84 u[IU]/mL 0.35-5.00 Aug 15, 2024 10:14 AM [facility] CALCIUM Specimen Type: SERUM No comment entered. Ordering Provider: COURTNEY FAROOQ Report Released Date/Time: Aug 08, 2024 01:49 PM Reporting Lab: [address] [address] Performing [facility] [address] CALCIUM 8.5 mg/dL 8.5-10.2 Aug 15, 2024 10:14 AM [facility] CBC AND DIFF (AUTO) Specimen Type: BLOOD No comment entered. Ordering Provider: COURTNEY FAROOQ Report Released Date/Time: Aug 08, 2024 01:49 PM Reporting Lab: [address] [address] Performing Lab: [facility] [address] [address] WBC 7.54 10*3/uL 4.50-11.00 RBC 3.63 10*6/uL [...] 10*3/uL 0.00-0.00 Aug 15, 2024 10:14 AM [facility] URIC ACID Specimen Type: SERUM No comment entered. Ordering Provider: COURTNEY FAROOQ Report Released Date/Time: Aug 08, 2024 01:49 PM Reporting Lab: [address] [address] Performing Lab: [address] [address] URIC ACID 7.9 mg/dL H 3.5-7.2 Aug 15, 2024 10:14 AM [facility] VITAMIN D (25-OH) Specimen Type: SERUM No comment entered. Ordering Provider: COURTNEY FAROOQ Report Released Date/Time: Aug 08, 2024 01:49 PM Reporting Lab: [address] [address] Performing Lab: [address] [address] VITAMIN D (25-OH) <13 ng/mL L 20-50 Advance Directives: All historical and current Section Date Range: From patient's date of to the date document was created. This section includes ALL of a patient's completed or amended [place] Advance and Rescinded Directives. The entries below indicate that a directive exists for the patient, but an actual copy is not included with this document. The data comes from all [place] facilities. Date Advance Directives Provider Source Jul 15, 2023 ADVANCE DIRECTIVE ROGER PEDRAZA LANEY Louis Jun 30, 2019 ADVANCE DIRECTIVE CASSIE POWELL [facility] Encounter Notes: All associated encounter notes [...] to be seen very soon. Please advise /inge/ JUAN MORRIS Signed: 07/31/2024 10:39 Receipt Acknowledged By: 07/31/2024 13:10 /inge/ MAXIMILIANO KUMARI LPN LPN * AWAITING SIGNATURE * JANINA ROWE 07/31/2024 ADDENDUM STATUS: COMPLETED SCHEUDLE THE PATIENT /es/ MAXIMILIANO KUMARI LPN LPN Signed: 07/31/2024 13:10 07/31/2024 ADDENDUM STATUS: COMPLETED [place] scheduled with Pact Team 10 for Wednesday08/04/24 @ 1030. Records requested from [facility] /inge/ JUAN MORRIS Signed: 07/31/2024 14:29 MARY [...] /inge/ MAXIMILIANO KUMARI LPN LPN 08/01/2024 10:42 /es/ JANINA ROWE RN REGISTERED NURSE 07/31/2024 ADDENDUM STATUS: COMPLETED SCHEUDLE THE PATIENT /inge/ MAXIMILIANO KUMARI LPN LPN Signed: 07/31/2024 13:10 07/31/2024 ADDENDUM STATUS: COMPLETED scheduled with Pact Team 10 for Wednesday08/04/24 @ 1030. Records requested from [facility] /inge/ JUAN MORRIS Signed: 07/31/2024 14:29 08/01/2024 ADDENDUM STATUS: COMPLETED Hospitalization records available in covering PACT 10 rightfax folder for review. /inge/ Mary Mota RN Registered Nurse Signed: 08/01/2024 08:09 Receipt Acknowledged By: 08/01/2024 08:52 /es/ SANTY KIRBY RN REGISTERED NURSE 08/01/2024 08:14 /inge/ RAMON GREEN LPN PACT 10 JUAN JESUS
--- OUTSIDE RECORDS SUMMARY | 2024-10-17 15:26 | XMS_ITS | Encounter Summary ---
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 Organization [place] Address [address] [place] [address] Care Team Providers Care Fishing Tool Supervisor Name Role Phone GURPREET PEREZ Primary [...] Patient's Relationship to Policy Harding [facility] PLAN [facility] (WNR) MEDICARE ADVANTAGE [facility] (WNR) Oct 25, 2011 [facility] [id number] GOMEZ PATIENT Selected Encounter This section includes the information on record at [place] for the Encounter. Date/Time Encounter Type Encounter Description Reason Pro vider Source Aug 01, 2024 03:36 PM Outpatient Encounter TELEPHONE PRIMARY CARE IHE Encounter Template Text not used by [place] Plan of Treatment: Future Appointments (+ 6 [...] 20 appointments. The data comes from all [facility]. Appointment Date/Time Appointment Type Appointme nt Facility Name Aug 05, 2024 08:00 AM AMBULATORY - MEDICINE [facility] Aug 22, 2024 09:30 AM AMBULATORY - MEDICINE [facility] Aug 29, 2024 08:00 AM [facility] Sep 20, 2024 09:00 AM AMBULATORY - MEDICINE [facility] Oct 03, 2024 11:30 AM AMBULATORY MEDICINE [facility] Active, Pending, and Scheduled Orders This section includes a listing of several types of active, pending, and scheduled orders, including clinic medications orders, diagnostic test orders, procedure orders and consult orders; where the start date of the order is 45 days before the date of the Encounter or 45 days after the date of theEncounter. The data comes from all [facility]. Test Date/Time Test Type Test Details Facility Name Aug 28, 2024 04:23 PM Consult Order [facility] NON-SKILLED HOME HEALTH AIDE Cons Quick Service Technician's Choice [facility] Lab Results: +/- 30 days of the encounter This section includes the Chemistry and Hematology Lab Results on record with [place] for the patient. Radiology Reports and Pathology Reports are provided separately, in subsequent sections. Lab Results This section contains the Chemistry/Hematology Results that were resulted 30 days before or 30 daysafter the date of the Encounter. Date/Time Source Result Type Result - Unit Interpretation Reference Range Comment Aug 22, 2024 10:26 AM [facility] FOLATE (OX) Specimen Type: SERUM No comment entered. Ordering Provider: COURTNEY FAROOQ Report Released Date/Time: Aug 22, 2024 10:17 AM Reporting Lab: [facility] [address] [facility] [address] Performing Lab: [facility] [address] [facility] [address] FOLATE (WROX) 3.90 ng/mL L >5.2 Aug 22, 2024 10:26 AM [facility] RETICULOCYTES Specimen Type: BLOOD Comment: Smear reviewed, auto CBC w/Diff accepted. Ordering Provider: COURTNEY FAROOQ Report Released Date/Time: Aug 22, 2024 10:17 AM Reporting Lab: [address] [address] Performing Lab: [address] [address] RETIC % 2.6 H 0.6-2.0 RETIC, ABS 91.6 10*3/uL H 30.0-90.0 RET-HE % 29.6 27.9-42.0 Aug 22, 2024 10:26 AM [facility] CBC AND DIFF (AUTO) Specimen Type: BLOOD Comment: Smear reviewed, auto CBC w/Diff accepted. Ordering Provider: COURTNEY FAROOQ Report Released Date/Time: Aug 22, 2024 10:17 AM Reporting Lab: [address] [address] Performing Lab: [address] [address] WBC 7.35 10*3/uL 4.50-11.00 RBC 3.51 10*6/uL [...] H 0.00-0.00 Aug 22, 2024 10:26 AM [facility] IRON & TIBC PANEL Specimen Type: SERUM No comment entered. Ordering Provider: COURTNEY FAROOQ Report Released Date/Time: Aug 22, 2024 10:17 AM Reporting Lab: [facility] [place] [facility] [address] [facility] [address] Performing Lab: [facility] TRN [facility] [address] [address] TIBC 210 ug/dL 204-475 IRON 43 ug/dL 40-160 Transferrin Saturation 20.5 20.0-50.0 Transferrin (TRF) 159 mg/dL L 200-360 Aug 22, 2024 10:26 AM [facility] FERRITIN Specimen Type: SERUM No comment entered. Ordering Provider: COURTNEY FAROOQ Report Released Date/Time: Aug 22, 2024 10:17 AM Reporting Lab: [facility]AMATRN [facility]ENTERUSETS [facility] [address] [facility] [address] Performing Lab: [facility]ENTERUSE[address] [address] FERRITIN 1130 ng/mL H 20-300 Aug 22, 2024 10:26 AM [facility] VITAMIN B12 Specimen Type: SERUM No comment entered. Ordering Provider: COURTNEY FAROOQ Report Released Date/Time: Aug 22, 2024 10:17 AM Reporting Lab: [facility]ATRN [facility]ENTERUSETS [facility] [address] [facility] [address] Performing Lab: [facility]ANRNOR[facility] CENTERN [facility] CENTERUSE[address] [address] VITAMIN B12 378 pg/mL 200-900 Aug 22, 2024 10:26 AM [facility] BASIC METABOLIC PANEL (non-fasting) Spe cimen Type: SERUM No comment entered. Ordering Provider: COURTNEY FAROOQ Report Released Date/Time: Aug 22, 2024 10:17 AM Reporting Lab: [facility] CENTERN [address] [address] Performing Lab: [facility] CENTERN [place] [address] UREA NITROGEN 12 mg/dL 7-25 GLUCOSE 104 mg/dL H 65-100 SODIUM 136 mmol/L 135-145 POTASSIUM 4.7 mmol/L 3.5-5.0 CHLORIDE 106 mmol/L 100-110 CO2 18 meq/L L 20-30 CREATININE, Serum 1.15 mg/dL 0.50-1.40 eGFR(CKD-EPI 2020) 65 mL/min >60 Aug 22, 2024 10:26 AM [facility] LIVER FUNCTION Specimen Type: SERUM No comment entered. Ordering Provider: COURTNEY FAROOQ Report Released Date/Time: Aug 22, 2024 10:17 AM Reporting Lab: [address] [address] Performing Lab: [place] [id number] PROTEIN,TOTAL 6.0 g/dL 6.0-8.3 ALBUMIN 3.1 g/dL L 3.5-5.0 ALKALINE PHOSPHATASE 138 U/L 40-150 AST 27 U/L 5-34 ALT 36 U/L BILIRUBIN, TOTAL 1.0 mg/dL 0.2-1.2 Aug 16, 2024 01:58 PM [facility] MICROALBUMIN CREATININE RATIO PANEL Specimen Type: URINE No comment entered. Ordering Provider: COURTNEY FAROOQ Report Released Date/Time: Aug 08, 2024 01:49 PM Reporting Lab: [address] [address] Performing Lab: [address] [address] MICROALBUMIN/CR EATININE RATIO 7.3 mg/g 0-29.9 MICROALBUMIN,QU ANTITATIVE 0.8 mg/dL RR UNAVAIL CREATININE URINE 109.38 mg/dL Aug 16, 2024 01:58 PM [facility] URINALYSIS Specimen Type: URINE Comment: If Glucose = >500 and Ketones are positive, please alert the Physician. Ordering Provider: COURTNEY FAROOQ Report Released Date/Time: Aug 08, 2024 01:49 PM Reporting Lab: [address] [address] Performing Lab: [facility] [address] [facility] [address] UA COLOR Light-Yellow Yellow UA APPEARANCE Clear Clear UA GLUCOSE Normal mg/dL Negative UA KETONES NEGATIVE mg/dL Negative UA BLOOD NEGATIVE mg/dL Negative UA PROTEIN 10 mg/dL Negative UA NITRITE NEGATIVE mg/dL Negative UA BILIRUBIN NEGATIVE mg/dL Negative UA SPECIFIC GRAVITY 1.017 1.016-1.02 2 UA pH 6.0 5.0-9.0 UA UROBILINOGEN Normal mg/dL <2.0 UA LEUKOCYTE TRACE Negative Aug 16, 2024 01:58 PM [facility] MICROSCOPIC AUTOMATED, URINE Specimen Type: URINE Comment: If Glucose = >500 and Ketones are positive, please alert the Physician. Ordering Provider: COURTNEY FAROOQ Report Released Date/Time: Aug 08, 2024 01:49 PM Reporting Lab: [address] [address] Performing Lab: [address] [address] UA WBC 0-5 /[HPF] 0-5 UA BACTERIA 1+ /[HPF] NoneObs UA MUCUS FEW /[LPF] Trace UA HYALINE CASTS 2-4 /[LPF] 0-2 UA RBC 3-5 /[HPF] 0-3 Aug 15, 2024 10:14 AM [facility] BASIC METABOLIC PANEL (fasting) Specimen Type: SERUM No comment entered. Ordering Provider: COURTNEY FAROOQ Report Released Date/Time: Aug 08, 2024 01:49 PM Reporting Lab: [address] [address] Performing Lab: [address] [address] UREA NITROGEN 28 mg/dL H 7-25 GLUCOSE 98 mg/dL 65-100 SODIUM 133 mmol/L L 135-145 POTASSIUM 5.3 mmol/L H 3.5-5.0 CHLORIDE 106 mmol/L 100-110 CO2 15 meq/L L 20-30 CREATININE, Serum 1.31 mg/dL 0.50-1.40 eGFR(CKD-EPI 2020) 55 mL/min L >60 Aug 15, 2024 10:14 AM [facility] LIPID PANEL FASTING Specimen Type: SERUM No comment entered. Ordering Provider: COURTNEY FAROOQ Report Released Date/Time: Aug 08, 2024 01:49 PM Reporting Lab: [address] [address] Performing Lab: [address] [address] CHOLESTEROL 69 mg/dL TRIGLYCERIDE 88 mg/dL 0-150 LDL calculated 16 mg/dL 0-129 CHOL/HDL 2.0 HDL CHOLESTEROL 35 mg/dL L 40-60 Aug 15, 2024 10:14 AM [facility] LIVER FUNCTION Specimen Type: SERUM No comment entered. Ordering Provider: COURTNEY FAROOQ Report Released Date/Time: Aug 08, 2024 01:49 PM Reporting Lab: [address] [address] Performing Lab: [address] [address] PROTEIN,TOTAL 6.2 g/dL 6.0-8.3 ALBUMIN 3.2 g/dL L 3.5-5.0 ALKALINE PHOSPHATASE 103 U/L 40-150 AST 17 U/L 5-34 ALT 25 U/L BILIRUBIN, TOTAL 0.9 mg/dL 0.2-1.2 Aug 15, 2024 10:14 AM [facility] HEMOGLOBIN A1C PANEL Specimen Type: [...] Aug 08, 2024 01:49 PM Reporting Lab: [address] [address] Performing Lab: [facility] [address] [facility] [address] HEMOGLOBIN A1C 6.7 H 4.0-5.6 Aug 15, 2024 10:14 AM [facility] TSH Specimen Type: SERUM No comment entered. Ordering Provider: COURTNEY FAROOQ Report Released Date/Time: Aug 08, 2024 01:49 PM Reporting Lab: [facility]ENTERUSE[facility] [address] [facility] [address] Performing Lab: [facility]ENTERUSE[facility] [address] [facility] [address] TSH 1.84 u[IU]/mL 0.35-5.00 Aug 15, 2024 10:14 AM [facility] CALCIUM Specimen Type: SERUM No comment entered. Ordering Provider: COURTNEY FAROOQ Report Released Date/Time: Aug 08, 2024 01:49 PM Reporting Lab: [facility] [address] [facility] [address] Performing Lab: [facility]N [facility] CENTERUSETS [address] [address] CALCIUM 8.5 mg/dL 8.5-10.2 Aug 15, 2024 10:14 AM [facility] CBC AND DIFF (AUTO) Specimen Type: BLOOD No comment entered. Ordering Provider: COURTNEY FAROOQ Report Released Date/Time: Aug 08, 2024 01:49 PM Reporting Lab: [address] [address] Performing Lab: [facility] CENTERUSETS [address] [address] WBC 7.54 10*3/uL 4.50-11.00 RBC 3.63 10*6/uL [...] 10*3/uL 0.00-0.00 Aug 15, 2024 10:14 AM [facility] URIC ACID Specimen Type: SERUM No comment entered. Ordering Provider: COURTNEY FAROOQ Report Released Date/Time: Aug 08, 2024 01:49 PM Reporting Lab: [address] [address] Performing Lab: [address] [address] URIC ACID 7.9 mg/dL H 3.5-7.2 Aug 15, 2024 10:14 AM [facility] VITAMIN D (25-[place]) Specimen Type: SERUM No comment entered. Ordering Provider: COURTNEY FAROOQ Report Released Date/Time: Aug 08, 2024 01:49 PM Reporting Lab: [address] [address] Performing Lab: [address] [address] VITAMIN D (25-[place]) <13 ng/mL L 20-50 Social History: Smoking Status (Most current) and Tobacco Use (All prior to encounter date) This section includes the most current, and the historical, smoking and tobacco- related health factors from the [place] facility where the Encounter took place. Current Smoking Status This section includes the most current smoking, or tobacco-related health factor, from the [place] facility where the Encounter took place. Date/Time Current Smoking Status Comment Deana ity Jun 03, 2023 08:58 AM [place]-TOBACCO FORMER USER [facility] Tobacco Use History This section includes a history of the smoking, or tobacco-related health factors, that were collected on or before the date of the Encounter. The data comes from the [place] facility where the Encounter took place. Date/Time Smoking Status/Tobacco Use Comment F acility Jun 03, 2023 08:58 AM [place]-TOBACCO QUIT 15 YRS OR MORE [facility] Advance Directives: All historical and current Section Date Range: From patient's date of to the date document was created. This section includes ALL of a patient's completed or amended [place] Advance and Rescinded Directives. The entries below indicate that a directive exists for the patient, but an actual copy is not included with this document. The data comes from all [place] facilities. Date Advance Directives Provider Source Jul 15, 2023 ADVANCE DIRECTIVE ROGER PEDRAZA Jun 30, 2019 ADVANCE DIRECTIVE CASSIE POWELL [facility] Encounter Notes: All associated encounter notes This section contains the clinical notes associated to the Encounter. Date/Time Encounter Note(s) Provider Source Aug 01, 2024 03:36 PM RESPIRATORY THERAP Y CONSULT: LOCAL TITLE: CONSULT REPORT/RESPIRATORY THERAPY STANDARD TITLE: RESPIRATORY THERAPY CONSULT DATE OF NOTE: AUG 01, 2024@15:36 ENTRY DATE: AUG 01, 2024@15:36:40 AUTHOR: MINH KELLOGG COSIGNER: URGENCY: STATUS: COMPLETED was called about his consult for a new nebulizer compressor. He was not able to speak on the phone but his Maria C (on comm auth) was able to speak for him. He was ordered a tabletop nebulizer compressor, 5 filters and 10 neb kits from [facility]. We reviewed how to use the device, how often to change the kits and filters, and how to keep things clean between treatments. He was sent written cleaning instructions, contact information for this clinic and will call when he is ready for more supplies. /inge/ MINH KELLOGG BA, POURER BUGGY LADLE, RPFT RESPIRATORY THERAPIST Signed: 08/01/2024 16:13 MINH KELLOGG [place] [facility]TRNOR[facility]ERN [facility]
--- OUTSIDE RECORDS SUMMARY | 2024-10-17 15:26 | XMS_ITS | Encounter Summary ---
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 Organization [place] Address [address] [place] [address] Care Team Providers Care Certified Medical Aide Name Role Phone GURPREET PEREZ Primary Care [...] Harding's Name Patient's Relationship to Policy Harding [facility] (WNR) MEDICARE ADVANTAGE [facility] (WNR) Oct 25, 2011 [facility] [id number] PATIENT Selected Encounter This section includes the information on record at [place] for the Encounter. Date/Time Encounter Type Encounter Description Reason Pro vider Source Jun 26, 2024 12:00 AM Outpatient Encounter COMMUNITY CARE [...] 20 appointments. The data comes from all [place] treatment facilities. Appointment Date/Time Appointment Type Appointme nt Facility Name Aug 05, 2024 08:00 AM AMBULATORY - MEDICINE [facility] Aug 22, 2024 09:30 AM AMBULATORY - MEDICINE [facility] Aug 29, 2024 08:00 AM AMBULATORY - MEDICINE [facility] Sep 20, 2024 09:00 AM AMBULATORY - MEDICINE [facility] Oct 03, 2024 11:30 AM AMBULATORY - MEDICINE [facility] Social History: Smoking Status (Most current) and Tobacco Use (All prior to encounter date) This section includes the most current, and the historical, smoking and tobacco- related health factors from the [place] facility where the Encounter took place. Current Smoking Status This section includes the most current smoking, or tobacco-related health factor, from the [place] facility where the Encounter took place. Date/Time Current Smoking Status Comment Facil ity Jun 03, 2023 08:58 AM VA-TOBACCO FORMER USER [facility] Tobacco Use History This section includes a history of the smoking, or tobacco-related health factors, that were collected on or before the date of the Encounter. The data comes from the [place] facility where the Encounter took place. Date/Time Smoking Status/Tobacco Use Comment F acility Jun 03, 2023 08:58 AM VA-TOBACCO QUIT 15 YRS OR MORE [facility] Advance Directives: All historical and current Section Date Range: From patient's date of to the date document was created. This section includes ALL of a patient's completed or amended [place] Advance and Rescinded Directives. The entries below indicate that a directive exists for the patient, but an actual copy is not included with this document. The data comes from all [place] facilities. Date Advance Directives Provider Source Jul 15, 2023 ADVANCE DIRECTIVE ROGER PEDRAZA Jun 30, 2019 ADVANCE DIRECTIVE CASSIE POWELL [facility] Encounter Notes: All associated encounter notes This section contains the clinical notes associated to the Encounter. Date/Time Encounter Note(s) Provider Source Jun 26, 2024 12:00 AM NONVA CONSULT: LOCAL TITLE: COMMUNITY CARE-CONSULT RESULT NOTE STANDARD TITLE: NONVA CONSULT DATE OF NOTE: JUN 26, 2024 ENTRY DATE: JUL 25, 2024@14:43:29 AUTHOR: TRE OLIVEIRA EXP COSIGNER: URGENCY: STATUS: COMPLETED VistA Imaging - Scanned Document SCANNED DOCUMENT SIGNATURE NOT REQUIRED Electronically Filed: 07/25/2024 by: TRE MORGAN CNTRL [facility]
--- OUTSIDE RECORDS SUMMARY | 2024-10-17 15:27 | XMS_ITS ---
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 Organization [place] Address [address] [place] [address] Care Team Providers Care Whitesmith Name Role Phone GURPREET PEREZ Primary Care [...] Harding's Name Patient's Relationship to Policy Harding [facility] PL[facility] (WNR) MEDICARE ADVANTAGE [facility] (WNR) Oct 25, 2011 [facility] [id number] [address]OMEZ PATIENT Selected Encounter This section includes the information on record at [place] for the Encounter. Date/Time Encounter Type Encounter Description Reason Pro vider Source Jan 24, 2024 12:00 AM Outpatient Encounter COMMUNITY CARE [...] Date/Time Appointment Type Appointme nt Facility Name Feb 05, 2024 08:00 AM [facility] February 25, 2024 02:00 PM [facility] Mar 30, 2024 10:00 AM AMBULATORY - REHAB MEDICIN E [facility] May 12, 2024 11:30 AM [facility] Jun 05, 2024 08:00 AM AMBULATORY - MEDICINE [facility] Jun 13, 2024 10:00 AM AMBULATORY - REHAB MEDICIN E [facility] Social History: Smoking Status (Most current) and Tobacco Use (All prior to encounter date) This section includes the most current, and the historical, smoking and tobacco- related health factors from the [place] facility where the Encounter took place. Current Smoking Status This section includes the most current smoking, or tobacco-related health factor, from the [place] facility where the Encounter took place. Date/Time Current Smoking Status Comment Facil ity Jun 03, 2023 08:58 AM VA-TOBACCO FORMER USER [facility] Tobacco Use History This section includes a history of the smoking, or tobacco-related health factors, that were collected on or before the date of the Encounter. The data comes from the [place] facility where the Encounter took place. Date/Time Smoking Status/Tobacco Use Comment F acility Jun 03, 2023 08:58 AM VA-TOBACCO QUIT 15 YRS OR MORE [facility] Advance Directives: All historical and current [...] Jun 30, 2019 ADVANCE DIRECTIVE CASSIE POWELL [facility] Encounter Notes: All associated encounter notes This section contains the clinical notes associated to the Encounter. Date/Time Encounter Note(s) Provider Source Jan 24, 2024 12:00 AM NONVA CONSULT: LOCAL TITLE: COMMUNITY CARE-CONSULT RESULT NOTE STANDARD TITLE: NONVA CONSULT DATE OF NOTE: JAN 24, 2024 ENTRY DATE: FEB 14, 2024@12:36:44 AUTHOR: TRE OLIVEIRA EXP COSIGNER: URGENCY: STATUS: COMPLETED VistA Imaging - Scanned Document SCANNED DOCUMENT SIGNATURE NOT REQUIRED Electronically Filed: 02/14/2024 by: TRE MORGAN CNTRL [facility]
--- OUTSIDE RECORDS SUMMARY | 2024-10-17 15:27 | XMS_ITS | Encounter Summary ---
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 Affairs [place] Organization Department of [place] Affairs [place]) Address [address] [place] [address] Care Team Providers Care Shipyard Supervisor Name Role Phone GURPREET PEREZ Primary [...] [facility] (WNR) MEDICARE ADVANTAGE [facility] (WNR) Oct 25, 2011 [facility] [id number] [address] GOMEZ PATIENT Selected Encounter This section includes the information on record at [place] for the Encounter. Date/Time Encounter Type Encounter Description Reason Pro vider Source March 06, 2024 12:00 AM Outpatient Encounter COMMUNITY CARE [...] 20 appointments. The data comes from all [place] treatment facilities. Appointment Date/Time Appointment Type Appointme nt Facility Name Mar 30, 2024 10:00 AM [facility] May 12, 2024 11:30 AM [facility] Jun 05, 2024 08:00 AM [facility]TR[facility]ENTERTRN [facility] Jun 13, 2024 10:00 AM AMBULATORY - [facility] Aug 05, 2024 08:00 AM [facility] Aug 22, 2024 09:30 AM [facility] Aug 29, 2024 08:00 AM AMBULATORY - MEDICINE [facility] Social History: Smoking Status (Most current) and Tobacco Use (All prior to encounter date) This section includes the most current, and the historical, smoking and tobacco- related health factors from the [place] facility where the Encounter took place. Current [...] the Encounter. The data comes from the [place] facility where the Encounter took place. Date/Time Smoking Status/Tobacco Use Comment F acility Jun 03, 2023 08:58 AM [place]-TOBACCO QUIT 15 YRS OR MORE [facility] Advance Directives: All historical and current Section Date Range: From patient's date of to the date document was created. This section includes ALL of a patient's completed or amended [place] Advance and Rescinded Directives. The entries below indicate that a directive exists for the patient, but an actual copy is not included with this document. The data comes from all [place] facilities. Date Advance Directives Provider Source Jul 15, 2023 ADVANCE DIRECTIVE ROGER PEDRAZA Jun 30, 2019 ADVANCE DIRECTIVE CASSIE POWELL [facility] Encounter Notes: All associated encounter notes This section contains the clinical notes associated to the Encounter. Date/Time Encounter Note(s) Provider Source March 06, 2024 12:00 AM NONVA CONSULT: LOCAL TITLE: COMMUNITY CARE-CONSULT RESULT NOTE STANDARD TITLE: NONVA CONSULT DATE OF NOTE: MARCH 06, 2024 ENTRY DATE: APR 05, 2024@05:33:30 AUTHOR: BERNARD CABEZAS MA EXP COSIGNER: URGENCY: STATUS: COMPLETED VistA Imaging - Scanned Document SCANNED DOCUMENT SIGNATURE NOT REQUIRED Electronically Filed: 04/05/2024 by: BERNARD CABEZAS ELECTRIC ACCOUNTING MACHINE OPERATOR BERNARD CABEZAS [facility]
--- OUTSIDE RECORDS SUMMARY | 2024-10-17 15:27 | XMS_ITS ---
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 Organization [place] Address [address] [place] [address] Care Team Providers Care Spanish Professor Name Role Phone GURPREET PEREZ Primary Care [...] Harding's Name Patient's Relationship to Policy Harding [facility] PLAN [facility] (WNR) MEDICARE ADVANTAGE [facility] (WNR) Oct 25, 2011 [facility] [id number] FATEMEH GOMEZ PATIENT Selected Encounter This section includes the information on record at [place] for the Encounter. Date/Time Encounter Type Encounter Description Reason Pro vider Source Apr 14, 2024 09:59 AM Outpatient Encounter ADMIN PAT ACTIVTIES (MASNONCT) IHE Encounter Template Text not used by [place] Plan of Treatment: Future Appointments (+ 6 [...] 20 appointments. The data comes from all [place] treatment facilities. Appointment Date/Time Appointment Type Appointme nt Facility Name May 12, 2024 11:30 AM [facility] Jun 05, 2024 08:00 AM AMBULATORY - MEDICINE [place] C NTRL W[facility]N [facility] Jun 13, 2024 10:00 AM [facility] Aug 05, 2024 08:00 AM AMBULATORY - MEDICINE [place] C NTRL WSTRN [facility] Aug 22, 2024 09:30 AM [facility] Aug 29, 2024 08:00 AM AMBULATORY - MEDICINE [place] C NTRL WSTRN [facility] Sep 20, 2024 09:00 AM [facility] Oct 03, 2024 11:30 AM [facility]INE [facility] Social History: Smoking Status (Most current) and Tobacco Use (All prior to encounter date) This section includes the most current, and the historical, smoking and tobacco- related health factors from the [place] facility where the Encounter took place. Current Smoking Status This section includes the most current smoking, or tobacco-related health factor, from the [place] facility where the Encounter took place. Date/Time Current Smoking Status Comment Facil ity Jun 03, 2023 08:58 AM VA-TOBACCO FORMER USER [facility] Tobacco Use History This section includes a history of the smoking, or tobacco-related health factors, that were collected on or before the date of the Encounter. The data comes from the [place] facility where the Encounter took place. Date/Time Smoking Status/Tobacco Use Comment F acility Jun 03, 2023 08:58 AM [place]-TOBACCO QUIT 15 YRS OR MORE [facility] Advance Directives: All historical and current Section Date Range: From patient's date of to the date document was created. This section includes ALL of a patient's completed or amended VA Advance and Rescinded Directives. The entries below indicate that a directive exists for the patient, but an actual copy is not included with this document. The data comes from all [place] facilities. Date Advance Directives Provider Source Jul 15, 2023 ADVANCE DIRECTIVE ROGER PEDRAZA Jun 30, 2019 ADVANCE DIRECTIVE CASSIE POWELL CNTRL W[facility] Encounter Notes: All associated encounter notes This section contains the clinical notes associated to the Encounter. Date/Time Encounter Note(s) Provider Source Apr 14, 2024 09:59 AM ADMINISTRATIVE NOT E: LOCAL TITLE: CCC: SCHEDULING ADMINISTRATION STANDARD TITLE: ADMINISTRATIVE NOTE DATE OF NOTE: APR 14, 2024@09:59:26 ENTRY DATE: APR 14, 2024@09:59:26 AUTHOR: MIHIR VELIZ COSIGNER: URGENCY: STATUS: COMPLETED Patient Demographics Patient Name: FATEMEH GOMEZ Patient Primary Phone: [phone] Patient Primary Address: [address] [place] [id number] Patient : 1945 Patient Age: 78 Caller/Recipient Relation to Patient: Self Administrative Administrative Note Reason: Other Administrative Note Comments: VET's spouse is requesting a call back from [facility] to be advised on whether or not to keep VET's appointment scheduled for 04/18; She states VET already has a PCP on the outside; Please call to discuss /inge/ MIHIR KRUSE 1 [facility] AMSA Signed: 04/14/2024 09:59 Receipt Acknowledged By: 04/19/2024 15:48 /es/ MAXIMILIANO KUMARI LPN LPN 04/19/2024 16:10 /es/ JANINA ROWE RN REGISTERED NURSE MIHIR VELIZRGlen [facility]AMP [facility]
--- OUTSIDE RECORDS SUMMARY | 2024-10-17 15:27 | XMS_ITS | Encounter Summary ---
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 [place] Organization Department of [place] Address [address] [place] [address] Care Team Providers Care Rag Collector Name Role Phone GURPREET PEREZ Primary Care [...] Harding's Name Patient's Relationship to Policy Harding [facility] PLAN [facility] (WNR) MEDICARE ADVANTAGE [facility] (WNR) Oct 25, 2011 [facility] [id number] FATEMEH GOMEZ PATIENT Selected Encounter This section includes the information on record at [place] for the Encounter. Date/Time Encounter Type Encounter Description Reason Pro vider Source Jun 05, 2024 12:00 AM Outpatient Encounter COMMUNITY CARE [...] 20 appointments. The data comes from all [place] treatment facilities. Appointment Date/Time Appointment Type Appointme nt Facility Name Jun 13, 2024 10:00 AM [facility]UL[facility] Aug 05, 2024 08:00 AM AMBULATORY - MEDICINE [place] C NTRL [facility] Aug 22, 2024 09:30 AM AMBULATORY - MEDICINE SPRI [facility] Aug 29, 2024 08:00 AM AMBULATORY - MEDICINE [place] C NTRL [facility] Sep 20, 2024 09:00 AM AMBULATORY - MEDICINE SPRI [facility] Oct 03, 2024 11:30 AM AMBULATORY - MEDICINE [facility] Social History: Smoking Status (Most current) [...] 03, 2023 08:58 AM VA-TOBACCO FORMER USER [facility] Tobacco Use History This section includes a history of the smoking, or tobacco-related health factors, that were collected on or before the date of the Encounter. The data comes from the [place] facility where the Encounter took place. Date/Time Smoking Status/Tobacco Use Comment F acility Jun 03, 2023 08:58 AM [place]-TOBACCO QUIT 15 YRS OR MORE [facility] Advance Directives: All historical and current [...] Jun 30, 2019 ADVANCE DIRECTIVE CASSIE POWELL [facility] Encounter Notes: All associated encounter notes This section contains the clinical notes associated to the Encounter. Date/Time Encounter Note(s) Provider Source Jun 05, 2024 12:00 AM NONVA CONSULT: LOCAL TITLE: COMMUNITY CARE-CONSULT RESULT NOTE STANDARD TITLE: NONVA CONSULT DATE OF NOTE: JUN 05, 2024 ENTRY DATE: JUL 08, 2024@07:21:29 AUTHOR: BERNARD CABEZAS MA EXP COSIGNER: URGENCY: STATUS: COMPLETED VistA Imaging - Scanned Document SCANNED DOCUMENT SIGNATURE NOT REQUIRED Electronically Filed: 07/08/2024 by: BERNARD CABEZAS DIRECTOR OF SOFTWARE DEVELOPMENT BERNARD CABEZAS [facility] Jun 05, 2024 12:00 AM NONVA CONSULT: LOCAL TITLE: COMMUNITY CARE-CONSULT RESULT NOTE STANDARD TITLE: NONVA CONSULT DATE OF NOTE: JUN 05, 2024 ENTRY DATE: JUL 08, 2024@07:23:12 AUTHOR: BERNARD CABEZAS MA EXP COSIGNER: URGENCY: STATUS: COMPLETED VistA Imaging - Scanned Document SCANNED DOCUMENT SIGNATURE NOT REQUIRED Electronically Filed: 07/08/2024 by: BERNARD CABEZAS DIRECTOR OF SOFTWARE DEVELOPMENT BERNARD [facility]
--- OUTSIDE RECORDS SUMMARY | 2024-10-17 15:27 | XMS_ITS | Encounter Summary ---
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 Affairs ([place]) Organization Department of [place] Address [address] [place] [address] Care Team Providers Care Environmental Coordinator Name Role Phone GURPREET PEREZ Primary [...] Harding's Name Patient's Relationship to Policy Harding [facility] PLAN [facility] (WNR) MEDICARE ADVANTAGE [facility] (WNR) Oct 25, 2011 [facility] [id number] FATEM[address] GOMEZ PATIENT Selected Encounter This section includes the information on record at [place] for the Encounter. Date/Time Encounter Type Encounter Description Reason Pro vider Source Feb 21, 2024 12:00 PM Outpatient Encounter COMMUNITY CARE [...] 20 appointments. The data comes from all [place] treatment facilities. Appointment Date/Time Appointment Type Appointme nt Facility Name February 25, 2024 02:00 PM [facility]UL[facility] Mar 30, 2024 10:00 AM AMBULATORY - [facility] May 12, 2024 11:30 AM AMBULATORY - [facility] Jun 05, 2024 08:00 AM AMBULATORY [facility] Jun 13, 2024 10:00 AM AMBULATORY - [facility] Aug 05, 2024 08:00 AM [facility] [place] [facility] Aug 22, 2024 09:30 AM [facility] Social History: Smoking Status (Most current) and Tobacco Use (All prior to encounter date) This section includes the most current, and the historical, smoking and tobacco- related health factors from the [place] facility where the Encounter took place. Current Smoking Status This section includes the most current smoking, or tobacco-related health factor, from the [place] facility where the Encounter took place. Date/Time Current Smoking Status Comment Facil ity Jun 03, 2023 08:58 AM VA-TOBACCO FORMER USER [facility] Tobacco Use History This section includes a history of the smoking, or tobacco-related health factors, that were collected on or before the date of the Encounter. The data comes from the [place] facility where the Encounter took place. Date/Time Smoking Status/Tobacco Use Comment F acility Jun 03, 2023 08:58 AM [place]-TOBACCO QUIT 15 YRS OR MORE [facility] Advance Directives: All historical and current Section Date Range: From patient's date of to the date document was created. This section includes ALL of a patient's completed or amended VA Advance and Rescinded Directives. The entries below indicate that a directive exists for the patient, but an actual copy is not included with this document. The data comes from all [place] facilities. Date Advance Directives Provider Source Jul 15, 2023 ADVANCE DIRECTIVE ROGER PEDRAZA Jun 30, 2019 ADVANCE DIRECTIVE FILIBERTO POWELLHER [facility] Encounter Notes: All associated encounter notes This section contains the clinical notes associated to the Encounter. Date/Time Encounter Note(s) Provider Source Feb 21, 2024 12:00 PM NONVA CONSULT: LOCAL TITLE: COMMUNITY CARE-CONSULT RESULT NOTE STANDARD TITLE: NONVA CONSULT DATE OF NOTE: FEB 21, 2024@12:00 ENTRY DATE: MARCH 13, 2024@15:05:52 AUTHOR: LIBAN TRIMBLE EXP COSIGNER: URGENCY: STATUS: COMPLETED VistA Imaging - Scanned Document SCANNED DOCUMENT SIGNATURE NOT REQUIRED Electronically Filed: 03/13/2024 by: LIBAN TRIMBLE MEDICAL SWITCHBOARD MANAGER LIBAN TRIMBLE [facility]
--- OUTSIDE RECORDS SUMMARY | 2024-10-17 15:27 | XMS_ITS | Encounter Summary ---
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 Affairs ([place]) Organization Department of [place] Address [address] [place] [address] Care Team Providers Care Dry Cleaner Apprentice Name Role Phone GURPREET PEREZ Primary Care [...] Relationship to Policy Harding [facility] PLAN [facility] (WNR) MEDICARE ADVANTAGE [facility] (WNR) Oct 25, 2011 [facility] [id number] FATEMEH GOMEZ PATIENT Selected Encounter This section includes the information on record at [place] for the Encounter. Date/Time Encounter Type Encounter Description Reason Pro vider Source Mar 27, 2024 12:00 AM Outpatient Encounter COMMUNITY [...] The data comes from all [place] treatment facilities. Appointment Date/Time Appointment Type Appointme nt Facility Name Mar 30, 2024 10:00 AM AMBULATORY - REHAB MEDICIN E [place] CNTR [facility] May 12, 2024 11:30 AM AMBULATORY - REHAB MEDICIN E [place] [facility] [facility] Jun 05, 2024 08:00 AM AMBULATORY - MEDICINE [place] C NTRL [facility]STRN [facility] Jun 13, 2024 10:00 AM AMBULATORY - REHAB MEDICIN E [place] [facility] [place] [facility] Aug 05, 2024 08:00 AM AMBULATORY - MEDICINE [place] C [place]TRL [place] [facility] Aug 22, 2024 09:30 AM AMBULATORY - MEDICINE [place] [place] Aug 29, 2024 08:00 AM AMBULATORY - MEDICINE [place] [facility] Sep 20, 2024 09:00 AM AMBULATORY - MEDICINE [facility] Social History: Smoking Status (Most [...] 03, 2023 08:58 AM VA-TOBACCO FORMER USER [facility] Tobacco Use History This section includes a history of the smoking, or tobacco-related health factors, that were collected on or before the date of the Encounter. The data comes from the [place] facility where the Encounter took place. Date/Time Smoking Status/Tobacco Use Comment F acility Jun 03, 2023 08:58 AM [place]-TOBACCO QUIT 15 YRS OR MORE [facility] Advance Directives: All historical and current [...] PEDRAZA Jun 30, 2019 ADVANCE DIRECTIVE SHERRYCASSIE [facility] Encounter Notes: All associated encounter notes This section contains the clinical notes associated to the Encounter. Date/Time Encounter Note(s) Provider Source Mar 27, 2024 12:00 AM NONVA CONSULT: LOCAL TITLE: COMMUNITY CARE-CONSULT RESULT NOTE STANDARD TITLE: NONVA CONSULT DATE OF NOTE: MAR 27, 2024 ENTRY DATE: APR 24, 2024@15:49:51 AUTHOR: BERNARD CABEZAS MA EXP COSIGNER: URGENCY: STATUS: COMPLETED VistA Imaging - Scanned Document SCANNED DOCUMENT SIGNATURE NOT REQUIRED Electronically Filed: 04/24/2024 by: BERNARD CABEZAS CREATIVE INTERN BERNARD CABEZAS [facility]
--- OUTSIDE RECORDS SUMMARY | 2024-10-17 15:27 | XMS_ITS ---
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 Affairs ([place]) Organization Department [place] Address [address] [place] [address] Care Team Providers Care Supervisor [employer]lass Boat [employer] Name Role Phone GURPREET PEREZ Primary Care [...] Harding's Name Patient's Relationship to Policy Harding [facility] PLAN [facility] (WNR) MEDICARE ADVANTAGE [facility] (WNR) Oct 25, 2011 [facility] [id number] FATEMEH GOMEZ PATIENT Selected Encounter This section includes the information on record at [place] for the Encounter. Date/Time Encounter Type Encounter Description Reason Pro vider Source Feb 16, 2024 12:00 AM Outpatient Encounter COMMUNITY CARE [...] 20 appointments. The data comes from all [place] treatment facilities. Appointment Date/Time Appointment Type Appointme nt Facility Name February 25, 2024 02:00 PM AMBULATORY [facility] Mar 30, 2024 10:00 AM AMBULATORY - [facility] May 12, 2024 11:30 AM AMBULATORY - [facility] Jun 05, 2024 08:00 AM AMBULATORY [facility] Jun 13, 2024 10:00 AM AMBULAT[facility] - [facility] Aug 05, 2024 08:00 AM AMBULATORY - MEDICINE [facility] Social History: Smoking Status (Most current) and Tobacco Use (All prior to encounter date) This section includes the most current, and the historical, smoking and tobacco- related health factors from the [place] facility where the Encounter took place. Current Smoking Status This section includes the most current smoking, or tobacco-related health factor, from the [place] facility where the Encounter took place. Date/Time Current Smoking Status Comment Facil ity Jun 03, 2023 08:58 AM VA-TOBACCO FORMER USER [facility] Tobacco Use History This section includes a history of the smoking, or tobacco-related health factors, that were collected on or before the date of the Encounter. The data comes from the [place] facility where the Encounter took place. Date/Time Smoking Status/Tobacco Use Comment F acility Jun 03, 2023 08:58 AM VA-TOBACCO QUIT 15 YRS OR MORE [facility] Advance Directives: All historical and current Section Date Range: From patient's date of to the date document was created. This section includes ALL of a patient's completed or amended [place] Advance and Rescinded Directives. The entries below indicate that a directive exists for the patient, but an actual copy is not included with this document. The data comes from all [place] facilities. Date Advance Directives Provider Source Jul 15, 2023 ADVANCE DIRECTIVE ROGER PEDRAZA Jun 30, 2019 ADVANCE DIRECTIVE CASSIE POWELL [facility] Encounter Notes: All associated encounter notes This section contains the clinical notes associated to the Encounter. Date/Time Encounter Note(s) Provider Source Feb 16, 2024 12:00 AM NONVA CONSULT: LOCAL TITLE: COMMUNITY CARE-CONSULT RESULT NOTE STANDARD TITLE: NONVA CONSULT DATE OF NOTE: FEB 16, 2024 ENTRY DATE: APR 06, 2024@09:42:43 AUTHOR: JERRY JIANG EXP COSIGNER: URGENCY: STATUS: COMPLETED VistA Imaging - Scanned Document SCANNED DOCUMENT SIGNATURE NOT REQUIRED Electronically Filed: 04/06/2024 by: JERRY BUNN [place] [facility]
--- OUTSIDE RECORDS SUMMARY | 2024-10-17 15:27 | XMS_ITS ---
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 ns Affairs ([place]) Organization Department of [place] Address [address] [place] [address] Care Team Providers Care Pen Ruler Operator Name Role Phone GURPREET PEREZ Primary [...] Harding's Name Patient's Relationship to Policy Harding [facility] PLAN [facility] (WNR) MEDICARE ADVANTAGE [facility] (WNR) Oct 25, 2011 [facility] [id number] FATEMEH GOMEZ PATIENT Selected Encounter This section includes the information on record at [place] for the Encounter. Date/Time Encounter Type Encounter Description Reason Pro vider Source Mar 27, 2024 12:55 PM Outpatient Encounter PRIMARY CARE/MEDICINE IHE Encounter Template Text not used by [place] Plan of Treatment: Future Appointments (+ 6 [...] 20 appointments. The data comes from all [place] treatment facilities. Appointment Date/Time Appointment Type Appointme nt Facility Name Mar 30, 2024 10:00 AM AMBULATORY - REHAB MEDICIN E [place] CNTRL [place] [facility] May 12, 2024 11:30 AM AMBULATORY - REHAB MEDICIN E [place] [facility] [facility] Jun 05, 2024 08:00 AM AMBULATORY - [facility]ICINE [place] [facility] Jun 13, 2024 10:00 AM AMBULATORY - REHAB MEDICIN E [place] [facility] [facility] Aug 05, 2024 08:00 AM AMBULATORY - MEDICINE [place] C NTRL [place] [facility] Aug 22, 2024 09:30 AM AMBULATORY - MEDICINE [place] [place] Aug 29, 2024 08:00 AM AMBULATORY - MEDICINE [place] C NTRL [place] [facility] Sep 20, 2024 09:00 AM AMBULATORY - MEDICINE SPRI [facility] Social History: Smoking Status (Most current) and Tobacco Use (All prior to encounter date) This section includes the most current, and the historical, smoking and tobacco- related health factors from the [place] facility where the Encounter took place. Current Smoking Status This section includes the most current smoking, or tobacco-related health factor, from the [place] facility where the Encounter took place. Date/Time Current Smoking Status Comment Deana ity Jun 03, 2023 08:58 AM VA-TOBACCO FORMER USER [facility] Tobacco Use History This section includes a history of the smoking, or tobacco-related health factors, that were collected on or before the date of the Encounter. The data comes from the [place] facility where the Encounter took place. Date/Time Smoking Status/Tobacco Use Comment F acility Jun 03, 2023 08:58 AM [place]-TOBACCO QUIT 15 YRS OR MORE [facility] Advance Directives: All historical and current Section Date Range: From patient's date of to the date document was created. This section includes ALL of a patient's completed or amended [place] Advance and Rescinded Directives. The entries below indicate that a directive exists for the patient, but an actual copy is not included with this document. The data comes from all [place] facilities. Date Advance Directives Provider Source Jul 15, 2023 ADVANCE DIRECTIVE ROGER PEDRAZA Jun 30, 2019 ADVANCE DIRECTIVE CASSIE POWELL [place] CNTRL WSTRN [facility] Encounter Notes: All associated encounter notes This section contains the clinical notes associated to the Encounter. Date/Time Encounter Note(s) Provider Source Mar 27, 2024 12:55 PM ADMINISTRATIVE NOT E: LOCAL TITLE: FAX/MAIL RECEIVED STANDARD TITLE: ADMINISTRATIVE NOTE DATE OF NOTE: MAR 27, 2024@12:55 ENTRY DATE: MAR 27, 2024@12:56:01 AUTHOR: KIZZY SAUCEDO EXP COSIGNER: URGENCY: STATUS: COMPLETED Document Received On: Mar Document Type: Other: MEDICAL RECORDS BRIGETTE Date of Service: Mar Facility and or Provider: Contact Information: PCP of Record: GURPREET PEREZ Next visit with PCP: 03/30/2024 10:00 CWM NO AUDIO HAF B 04/18/2024 14:00 CWM/SO/PACT 5 08/03/2024 10:30 CWM/SO/PACT 5 10/03/2024 11:30 CWM/NO/OPTOMETRY/MERHAR Primary Care May keep copies of this document for up to 14 days and send the original for scanning. RECORDS PLACED IN PROVIDER MAIL BOX /inge/ KIZZY SAUCEDO ADVANCE CAMP ASSISTANT Signed: 03/27/2024 13:01 Receipt Acknowledged By: 03/28/2024 09:31 /es/ YI BLANCHARD RN REGISTERED NURSE 03/29/2024 16:01 /es/ RUDY COCHRAN LPN, VICKI M [place]
--- OUTSIDE RECORDS SUMMARY | 2024-10-17 15:27 | XMS_ITS | Encounter Summary ---
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) Organization [place] Address [address] [place] [address] Care Team Providers Care Application Spec Name Role Phone GURPREET PEREZ Primary Care [...] Harding's Name Patient's Relationship to Policy Harding [facility] PLAN [facility] (WNR) MEDICARE ADVANTAGE [facility] (WNR) Oct 25, 2011 [facility] [id number] GOMEZ PATIENT Selected Encounter This section includes the information on record at [place] for the Encounter. Date/Time Encounter Type Encounter Description Reason Pro vider Source March 21, 2024 12:00 AM Outpatient Encounter COMMUNITY CARE [...] 20 appointments. The data comes from all [place] treatment facilities. Appointment Date/Time Appointment Type Appointme nt Facility Name Mar 30, 2024 10:00 AM AMBULATORY - [place] MEDIC[facility] E [place] [facility] May 12, 2024 11:30 AM AMBULATORY - [place] [facility] Jun 05, 2024 08:00 AM AMBULATORY - MEDICINE [place] C [facility] Jun 13, 2024 10:00 AM AMBULATORY - REH[place] MEDICIN E [place] [facility] Aug 05, 2024 08:00 AM AMBULATORY - MEDICINE [place] [facility] Aug 22, 2024 09:30 AM AMBULATORY - MEDICINE [place] Aug 29, 2024 08:00 AM AMBULATORY - MEDICINE [place] [facility] Sep 20, 2024 09:00 AM AMBULATORY - MEDICINE [facility] Social History: Smoking Status (Most current) and Tobacco Use (All prior to encounter date) This section includes the most current, and the historical, smoking and tobacco- related health factors from the [place] facility where the Encounter took place. Current Smoking Status This section includes the most current smoking, or tobacco-related health factor, from the [place] facility where the Encounter took place. Date/Time Current Smoking Status Comment Deana ity Jun 03, 2023 08:58 AM VA-TOBACCO FORMER USER [facility] Tobacco Use History This section includes a history of the smoking, or tobacco-related health factors, that were collected on or before the date of the Encounter. The data comes from the [place] facility where the Encounter took place. Date/Time Smoking Status/Tobacco Use Comment F acility Jun 03, 2023 08:58 AM [place]-TOBACCO QUIT 15 YRS OR MORE [facility] Advance Directives: All historical and current Section Date Range: From patient's date of to the date document was created. This section includes ALL of a patient's completed or amended [place] Advance and Rescinded Directives. The entries below indicate that a directive exists for the patient, but an actual copy is not included with this document. The data comes from all [place] facilities. Date Advance Directives Provider Source Jul 15, 2023 ADVANCE DIRECTIVE ROGER PEDRAZA Jun 30, 2019 ADVANCE DIRECTIVE SHERRYCASSIE [facility] Encounter Notes: All associated encounter notes This section contains the clinical notes associated to the Encounter. Date/Time Encounter Note(s) Provider Source March 21, 2024 12:00 AM NONVA CONSULT: LOCAL TITLE: COMMUNITY CARE-CONSULT RESULT NOTE STANDARD TITLE: NONVA CONSULT DATE OF NOTE: MARCH 21, 2024 ENTRY DATE: APR 24, 2024@15:46:59 AUTHOR: BERNARD CABEZAS MA EXP COSIGNER: URGENCY: STATUS: COMPLETED VistA Imaging - Scanned Document SCANNED DOCUMENT SIGNATURE NOT REQUIRED Electronically Filed: 04/24/2024 by: BERNARD CABEZAS FREIGHT RATE SPECIALIST BERNARD CABEZAS [facility]
--- OUTSIDE RECORDS SUMMARY | 2024-10-17 15:27 | XMS_ITS ---
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 [place] Affairs ([place]) Organization Department [place] Address [address] [place] [address] Care Team Providers Care Felt Finisher Name Role Phone GURPREET PEREZ Primary Care [...] Patient's Relationship to Policy Harding [facility] PLAN [facility] (WNR) MEDICARE ADVANTAGE [facility] (WNR) Oct 25, 2011 [facility] [id number] GAMAL GOMEZ PATIENT Selected Encounter This section includes the information on record at [place] for the Encounter. Date/Time Encounter Type Encounter Description Reason Pro vider Source Apr 21, 2024 08:40 AM Outpatient Encounter PRIMARY CARE/MEDICINE IHE Encounter Template Text not used by [place] Plan of Treatment: Future Appointments (+ 6 [...] 20 appointments. The data comes from all [place] treatment facilities. Appointment Date/Time Appointment Type Appointme nt Facility Name May 12, 2024 11:30 AM [facility] [place] [facility] Jun 05, 2024 08:00 AM AMBULATORY - MEDICINE [place] C NTRL [facility] Jun 13, 2024 10:00 AM [facility]UL[facility] Aug 05, 2024 08:00 AM AMBULATORY - MEDICINE [place] C NTRL [facility]N [facility] Aug 22, 2024 09:30 AM AMBULATORY - MEDICINE [facility] Aug 29, 2024 08:00 AM AMBULATORY - MEDICINE [place] C [facility] Sep 20, 2024 09:00 AM AMBULATORY - MEDICINE [facility] Oct 03, 2024 11:30 AM [facility] Social History: Smoking Status (Most current) and Tobacco Use (All prior to encounter date) This section includes the most current, and the historical, smoking and tobacco- related health factors from the [place] facility where the Encounter took place. Current Smoking Status This section includes the most current smoking, or tobacco-related health factor, from the [place] facility where the Encounter took place. Date/Time Current Smoking Status Comment Facil ity Jun 03, 2023 08:58 AM VA-TOBACCO FORMER USER [facility] Tobacco Use History This section includes a history of the smoking, or tobacco-related health factors, that were collected on or before the date of the Encounter. The data comes from the [place] facility where the Encounter took place. Date/Time Smoking Status/Tobacco Use Comment F acility Jun 03, 2023 08:58 AM VA-TOBACCO QUIT 15 YRS OR MORE [facility] Advance Directives: All historical and current Section Date Range: From patient's date of to the date document was created. This section includes ALL of a patient's completed or amended [place] Advance and Rescinded Directives. The entries below indicate that a directive exists for the patient, but an actual copy is not included with this document. The data comes from all [place] facilities. Date Advance Directives Provider Source Jul 15, 2023 ADVANCE DIRECTIVE ROGER PEDRAZA Jun 30, 2019 ADVANCE DIRECTIVE CASSIE POWELL [place] CNTRL [facility] [facility] Encounter Notes: All associated encounter notes This section contains the clinical notes associated to the Encounter. Date/Time Encounter Note(s) Provider Source Apr 23, 2024 01:43 PM ADDENDUM: LOCAL TITLE: Addendum STANDARD TITLE: ADDENDUM DATE OF NOTE: APR 23, 2024@13:43:26 ENTRY DATE: APR 23, 2024@13:43:26 AUTHOR: MERLYN MOTA COSIGNER: URGENCY: STATUS: COMPLETED PACT AMSA - please request non VA PCP note. Thank you. /inge/ Merlyn Mota RN Registered Nurse Signed: 04/23/2024 13:43 Receipt Acknowledged By: 04/26/2024 09:32 /es/ KRYSTINA MORRIS for ROGER PEDRAZA ========= --- Original Document --- 04/21/24 PRIMARY CARE SECURE MESSAGING: ------Original Message -------- Sent: 04/21/2024 09:39 AM ET From: GAMAL GOMEZ To: CHRIS,O_P [facility] Subject: Appointment:Regarding message we left on phone Gamal had an appointment with you but I cancelled it because I had questions and never heard anything. You wanted the appointment because he didn't see anyone after his hospital stay but he did. His primary care doctor at [facility] in [place] has seen her 3 times. The rash has cleared up so far so I only kept the Oct appointment. If this is a problem please let me know. Maria C Gomez /mini PEDRAZA AMSA Signed: 04/21/2024 09:40 Receipt Acknowledged By: 04/25/2024 09:31 /inge/ MAXIMILIANO KUMARI LPN LPN 04/23/2024 13:43 /inge/ Merlyn Mota RN Registered Nurse for JANINA ROWE 04/26/2024 ADDENDUM STATUS: COMPLETED Medical records request faxed to [facility]. /inge/ KRYSTINA BLANK AMSAlo Signed: 04/26/2024 09:32 MERLYN MOTA [place] [facility] Apr 21, 2024 08:40 AM PRIMARY CARE SECUR E MESSAGING: LOCAL TITLE: PRIMARY CARE SECURE MESSAGING STANDARD TITLE: PRIMARY CARE SECURE MESSAGING DATE OF NOTE: APR 21, 2024@08:40 ENTRY DATE: APR 21, 2024@09:40:48 AUTHOR: ROGER PEDRAZA COSIGNER: URGENCY: STATUS: COMPLETED PRIMARY CARE SECURE MESSAGING Has ADDENDA ------Original Message -------- Sent: 04/21/2024 09:39 AM ET From: GAMAL GOMEZ To: CHRIS,O_P [facility] Subject: Appointment:Regarding message we left on phone Gamal had an appointment with you but I cancelled it because I had questions and never heard anything. You wanted the appointment because he didn't see anyone after his hospital stay but he did. His primary care doctor at [facility] in [place] has seen her 3 times. The rash has cleared up so far so I only kept the Oct appointment. If this is a problem please let me know. Maria C Gomez /inge/ ROEGR PEDRAZA AMSA Signed: 04/21/2024 09:40 Receipt Acknowledged By: 04/25/2024 09:31 /inge/ MAXIMILIANO KUMARI LPN LPN 04/23/2024 13:43 /inge/ Merlyn Mota RN Registered Nurse for JANINA ROWE 04/23/2024 ADDENDUM STATUS: COMPLETED PACT AMSA - please request non VA PCP note. Thank you. /inge/ Merlyn Mota RN Registered Nurse Signed: 04/23/2024 13:43 Receipt Acknowledged By: 04/26/2024 09:32 /inge/ KRYSTINA MORRIS for ROGER PEDRAZA 04/26/2024 ADDENDUM STATUS: COMPLETED Medical records request faxed to [place]. /inge/ KRYSTINA MORRIS Signed: 04/26/2024 09:32 ROGER PEDRAZA CNTRL WSTRN [facility]
--- OUTSIDE RECORDS SUMMARY | 2024-10-17 15:27 | XMS_ITS | Encounter Summary ---
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 Affairs ([place]) Organization Department of [place]) Address [address] [place] [address] Care Team Providers Care Civil Engineering Designer Name Role Phone GURPREET PEREZ Primary Care [...] to Policy Harding [facility] PLAN [facility] (WNR) MEDICARE ADVANTAGE [facility] (WNR) Oct 25, 2011 [facility] [id number] GOMEZ PATIENT Selected Encounter This [...] - REHAB MEDICIN E [place] [facility] May 12, 2024 11:30 AM AMBULATORY - REHAB MEDICIN E [place] [facility] Jun 05, 2024 08:00 AM AMBULATORY - MEDICINE [place] C NTRL [facility]N [facility] Jun 13, 2024 10:00 AM AMBULATORY - REHAB MEDICIN E [place] [facility] Aug 05, 2024 08:00 AM AMBULATORY - MEDICINE [place] [facility] Aug 22, 2024 09:30 AM AMBULATORY - MEDICINE [place] Aug 29, 2024 08:00 AM AMBULATORY - MEDICINE [place] [facility] Sep 20, 2024 09:00 AM AMBULATORY - MEDICINE [facility] Social History: Smoking Status (Most current) [...] 03, 2023 08:58 AM VA-TOBACCO FORMER USER [facility] Tobacco Use History This section includes a history of the smoking, or tobacco-related health factors, that were collected on or before the date of the Encounter. The data comes from the [place] facility where the Encounter took place. Date/Time Smoking Status/Tobacco Use Comment F acility Jun 03, 2023 08:58 AM [place]-TOBACCO QUIT 15 YRS OR MORE [facility] Advance Directives: All historical and current [...] Jun 30, 2019 ADVANCE DIRECTIVE CASSIE POWELL [facility] Encounter Notes: All associated encounter notes This section contains the clinical notes associated to the Encounter. Date/Time Encounter Note(s) Provider Source Mar 27, 2024 12:00 AM NONVA CONSULT: LOCAL TITLE: COMMUNITY CARE-CONSULT RESULT NOTE STANDARD TITLE: NONVA CONSULT DATE OF NOTE: MAR 27, 2024 ENTRY DATE: MAY 16, 2024@12:15:49 AUTHOR: TRE OLIVEIRA EXP COSIGNER: URGENCY: STATUS: COMPLETED VistA Imaging - Scanned Document SCANNED DOCUMENT SIGNATURE NOT REQUIRED Electronically Filed: 05/16/2024 by: TRE MORGAN [facility]
--- OUTSIDE RECORDS SUMMARY | 2024-10-17 15:27 | XMS_ITS | Encounter Summary ---
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 Affairs ([place]) Organization Department of [place] Address [address] [place] [address] Care Team Providers Care Office Rep Name Role Phone GURPREET PEREZ Primary Care [...] Patient's Relationship to Policy Harding [facility] PLAN [facility] (WNR) MEDICARE ADVANTAGE [facility] (WNR) Oct 25, 2011 [facility] [id number] FATEM[address] GOMEZ PATIENT Selected Encounter This section includes the information on record at [place] for the Encounter. Date/Time Encounter Type Encounter Description Reason Pro vider Source February 23, 2024 12:00 PM Outpatient Encounter COMMUNITY CARE [...] 20 appointments. The data comes from all [place] treatment facilities. Appointment Date/Time Appointment Type Appointme nt Facility Name February 25, 2024 02:00 PM AMBULATORY - [facility] Mar 30, 2024 10:00 AM AMBULATORY - [facility] May 12, 2024 11:30 AM AMBULATORY - [facility] Jun 05, 2024 08:00 AM AMBULATORY - MEDICINE [place] [facility] Jun 13, 2024 10:00 AM AMBULATORY - [facility]HAB [facility] Aug 05, 2024 08:00 AM AMBULATORY - [place]ICINE [place] [facility] Aug 22, 2024 09:30 AM [facility] Social History: Smoking Status (Most current) and Tobacco Use (All prior to encounter date) This section includes the most current, and the historical, smoking and tobacco- related health factors from the [place] facility where the Encounter took place. Current Smoking Status This section includes the most current smoking, or tobacco-related health factor, from the [place] facility where the Encounter took place. Date/Time Current Smoking Status Comment Facil ity Jun 03, 2023 08:58 AM VA-TOBACCO FORMER USER [facility] Tobacco Use History This section includes a history of the smoking, or tobacco-related health factors, that were collected on or before the date of the Encounter. The data comes from the [place] facility where the Encounter took place. Date/Time Smoking Status/Tobacco Use Comment F acility Jun 03, 2023 08:58 AM [place]-TOBACCO QUIT 15 YRS OR MORE [facility] Advance Directives: All historical and current Section Date Range: From patient's date of to the date document was created. This section includes ALL of a patient's completed or amended [place] Advance and Rescinded Directives. The entries below indicate that a directive exists for the patient, but an actual copy is not included with this document. The data comes from all [place] facilities. Date Advance Directives Provider Source Jul 15, 2023 ADVANCE DIRECTIVE ROGER PEDRAZA Jun 30, 2019 ADVANCE DIRECTIVE CASSIE POWELL [facility] Encounter Notes: All associated encounter notes This section contains the clinical notes associated to the Encounter. Date/Time Encounter Note(s) Provider Source February 23, 2024 12:00 PM NONVA CONSULT: LOCAL TITLE: COMMUNITY CARE-CONSULT RESULT NOTE STANDARD TITLE: NONVA CONSULT DATE OF NOTE: FEBRUARY 23, 2024@12:00 ENTRY DATE: MARCH 13, 2024@15:01:20 AUTHOR: LIBAN TRIMBLE EXP COSIGNER: URGENCY: STATUS: COMPLETED VistA Imaging - Scanned Document SCANNED DOCUMENT SIGNATURE NOT REQUIRED Electronically Filed: 03/13/2024 by: LIBAN TRIMBLE MEDICAL MENTAL HEALTH THERAPIST LIBAN TRIMBLE [facility]
--- OUTSIDE RECORDS SUMMARY | 2024-10-17 15:27 | XMS_ITS ---
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 Affairs ([place]) Organization Department of [place] Address [address] [place] [address] Care Team Providers Care Wash Oil Cooler Operator Name Role Phone GURPREET PEREZ Primary [...] Harding's Name Patient's Relationship to Policy Harding [facility] PLAN [facility] (WNR) MEDICARE ADVANTAGE [facility] (WNR) Oct 25, 2011 [facility] [id number] FATEM[address] GOMEZ PATIENT Selected Encounter This section includes the information on record at [place] for the Encounter. Date/Time Encounter Type Encounter Description Reason Pro vider Source Apr 30, 2024 12:00 PM Outpatient Encounter COMMUNITY CARE [...] 20 appointments. The data comes from all [place] treatment facilities. Appointment Date/Time Appointment Type Appointme nt Facility Name May 12, 2024 11:30 AM AMBULATORY - [facility] Jun 05, 2024 08:00 AM AMBULATORY - MEDICINE [place] C NTRL WSTRN [facility] Jun 13, 2024 10:00 AM AMBULATORY - REHAB MEDICIN E [facility] Aug 05, 2024 08:00 AM AMBULATORY - MEDICINE [place] C NTRL WSTRN [facility] Aug 22, 2024 09:30 AM AMBULATORY - MEDICINE SPR[facility] Aug 29, 2024 08:00 AM AMBULATORY - MEDICINE [place] C NTRL WSTRN [facility] Sep 20, 2024 09:00 AM AMBULATORY - MEDICINE SPRI [facility] Oct 03, 2024 11:30 AM AMBULATORY - MEDICINE [facility] Social History: Smoking Status (Most current) and Tobacco Use (All prior to encounter date) This section includes the most current, and the historical, smoking and tobacco- related health factors from the [place] facility where the Encounter took place. Current Smoking Status This section includes the most current smoking, or tobacco-related health factor, from the [place] facility where the Encounter took place. Date/Time Current Smoking Status Comment Facil ity Jun 03, 2023 08:58 AM VA-TOBACCO FORMER USER [facility] Tobacco Use History This section includes a history of the smoking, or tobacco-related health factors, that were collected on or before the date of the Encounter. The data comes from the [place] facility where the Encounter took place. Date/Time Smoking Status/Tobacco Use Comment F acility Jun 03, 2023 08:58 AM [place]-TOBACCO QUIT 15 YRS OR MORE [facility] Advance Directives: All historical and current Section Date Range: From patient's date of to the date document was created. This section includes ALL of a patient's completed or amended [place] Advance and Rescinded Directives. The entries below indicate that a directive exists for the patient, but an actual copy is not included with this document. The data comes from all [place] facilities. Date Advance Directives Provider Source Jul 15, 2023 ADVANCE DIRECTIVE ROGER PEDRAZA Jun 30, 2019 ADVANCE DIRECTIVE CASSIE POWELL [facility] Encounter Notes: All associated encounter notes This section contains the clinical notes associated to the Encounter. Date/Time Encounter Note(s) Provider Source Apr 30, 2024 12:00 PM NONVA CONSULT: LOCAL TITLE: COMMUNITY CARE-CONSULT RESULT NOTE STANDARD TITLE: NONVA CONSULT DATE OF NOTE: APR 30, 2024@12:00 ENTRY DATE: JUN 05, 2024@15:44:34 AUTHOR: LIBAN TRIMBLE EXP COSIGNER: URGENCY: STATUS: COMPLETED VistA Imaging - Scanned Document SCANNED DOCUMENT SIGNATURE NOT REQUIRED Electronically Filed: 06/05/2024 by: LIBAN TRIMBLE MEDICAL NETWORK PROFESSIONAL LIBAN TRIMBLE [facility]
--- OUTSIDE RECORDS SUMMARY | 2024-10-17 15:27 | XMS_ITS | Encounter Summary ---
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 Affairs ([place]) Organization Department [place] Address [address] [place] [address] Care Team Providers Care Load Planner Name Role Phone GURPREET PEREZ Primary Care [...] Patient's Relationship to Policy Harding [facility] PLAN [facility] (WNR) MEDICARE ADVANTAGE [facility] (WNR) Oct 25, 2011 [facility] [id number] FATEM[address] GOMEZ PATIENT Selected Encounter This section includes the information on record at [place] for the Encounter. Date/Time Encounter Type Encounter Description Reason Pro vider Source Jan 10, 2024 12:00 AM Outpatient Encounter COMMUNITY CARE [...] 20 appointments. The data comes from all [place] treatment facilities. Appointment Date/Time Appointment Type Appointme nt Facility Name Feb 05, 2024 08:00 AM [facility]UL[facility] February 25, 2024 02:00 PM [facility] Mar 30, 2024 10:00 AM AMBULATORY - REHAB MEDICIN E [facility] May 12, 2024 11:30 AM [facility]UL[facility] Jun 05, 2024 08:00 AM AMBULATORY - MEDICINE [facility] Jun 13, 2024 10:00 AM AMBULATORY - REHAB MEDICIN E [facility] Social History: Smoking Status (Most current) [...] the Encounter. The data comes from the [place] facility where the Encounter took place. Date/Time Smoking Status/Tobacco Use Comment F acility Jun 03, 2023 08:58 AM VA-TOBACCO QUIT 15 YRS OR MORE [facility] Advance Directives: All historical and current Section Date Range: From patient's date of to the date document was created. This section includes ALL of a patient's completed or amended [place] Advance and Rescinded Directives. The entries below indicate that a directive exists for the patient, but an actual copy is not included with this document. The data comes from all [place] facilities. Date Advance Directives Provider Source Jul 15, 2023 ADVANCE DIRECTIVE ROGER PEDRAZA Jun 30, 2019 ADVANCE DIRECTIVE CASSIE POWELL [facility] Encounter Notes: All associated encounter notes This section contains the clinical notes associated to the Encounter. Date/Time Encounter Note(s) Provider Source Jan 10, 2024 12:00 AM NONVA CONSULT: LOCAL TITLE: COMMUNITY CARE-CONSULT RESULT NOTE STANDARD TITLE: NONVA CONSULT DATE OF NOTE: JAN 10, 2024 ENTRY DATE: JAN 26, 2024@12:47:26 AUTHOR: BERNARD CABEZAS MA EXP COSIGNER: URGENCY: STATUS: COMPLETED VistA Imaging - Scanned Document SCANNED DOCUMENT SIGNATURE NOT REQUIRED Electronically Filed: 01/26/2024 by: BERNARD CABEZAS SEWER DIGGER BERNARD CABEZAS [place] CNTRL W[facility]
--- OUTSIDE RECORDS SUMMARY | 2024-10-17 15:27 | XMS_ITS | Encounter Summary ---
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 Address [address] [place] [address] Care Team Providers Care Acting Teacher Name Role Phone GURPREET PEREZ Primary Care [...] Harding's Name Patient's Relationship to Policy Harding [facility] (WNR) MEDICARE ADVANTAGE [facility] (WNR) Oct 25, 2011 [facility] [id number] PATIENT Selected Encounter This section includes the information on record at [place] for the Encounter. Date/Time Encounter Type Encounter Description Reason Pro vider Source Feb 16, 2024 01:57 PM Outpatient Encounter ADMIN PAT ACTIVTIES (MASNONCT) IHE Encounter Template Text not used by [place] Plan of Treatment: Future Appointments (+ 6 [...] 20 appointments. The data comes from all [place] treatment facilities. Appointment Date/Time Appointment Type Appointme nt Facility Name February 25, 2024 02:00 PM [facility] Mar 30, 2024 10:00 AM [facility] May 12, 2024 11:30 AM [facility] Jun 05, 2024 08:00 AM [facility] Jun 13, 2024 10:00 AM AMBULAT[facility] Aug 05, 2024 08:00 AM AMBULATORY - MEDICINE [facility] Social History: Smoking Status (Most current) and Tobacco Use (All prior to encounter date) This section includes the most current, and the historical, smoking and tobacco- related health factors from the [place] facility where the Encounter took place. Current Smoking Status This section includes the most current smoking, or tobacco-related health factor, from the [place] facility where the Encounter took place. Date/Time Current Smoking Status Comment Facil ity Jun 03, 2023 08:58 AM [place]-TOBACCO FORMER USER [facility] Tobacco Use History This section includes a history of the smoking, or tobacco-related health factors, that were collected on or before the date of the Encounter. The data comes from the [place] facility where the Encounter took place. Date/Time Smoking Status/Tobacco Use Comment F acility Jun 03, 2023 08:58 AM [place]-TOBACCO QUIT 15 YRS OR MORE [facility] Advance Directives: All historical and current Section Date Range: From patient's date of to the date document was created. This section includes ALL of a patient's completed or amended [place] Advance and Rescinded Directives. The entries below indicate that a directive exists for the patient, but an actual copy is not included with this document. The data comes from all [place] facilities. Date Advance Directives Provider Source Jul 15, 2023 ADVANCE DIRECTIVE ROGER PEDRAZA Jun 30, 2019 ADVANCE DIRECTIVE CASSIE [facility]OW[facility]LL [facility] Encounter Notes: All associated encounter notes This section contains the clinical notes associated to the Encounter. Date/Time Encounter Note(s) Provider Source Feb 17, 2024 09:39 AM ADDENDUM: LOCAL TITLE: Addendum STANDARD TITLE: ADDENDUM DATE OF NOTE: FEB 17, 2024@09:39:56 ENTRY DATE: FEB 17, 2024@09:39:57 AUTHOR: YI BLANCHARD COSIGNER: URGENCY: STATUS: COMPLETED Attempted to contact via telephone, generic message asking to contact PACT. VNA nurse Sarmadnatalie contacted via telephone, informed of sick-call availability, will request MSA contact to schedule PCP visit for follow-up. MSA- Please contact to assist with scheduling PCP visit for follow-up regarding recurring rash to groin. was also hospitalized for pneumonia since last visit in July. /inge/ YI BLANCHARD RN REGISTERED NURSE Signed: 02/17/2024 09:42 Receipt Acknowledged By: 02/17/2024 10:05 /inge/ ROGER MORRIS === --- Original Document --- 02/16/24 CCC: SCHEDULING ADMINISTRATION: Patient Demographics Patient Name: FATEMEH GOMEZ Patient Primary Phone: [phone] Patient Primary Address: [address] [place] [id number] Patient : 1945 Patient Age: 78 Call Back Number: [phone] Caller/Recipient Relation to Patient: Other If Other Describe Relation to Patient: andia Caller Name: Marky Administrative Administrative Note Reason: Home Health / [facility] Administrative Note Comments: VNA called in wound in groin area has opened up and is very red and she would like to speak to Pact RN. Please call her [phone] /inge/ ALVA CONRAD Signed: 02/16/2024 13:57 Receipt Acknowledged By: 02/17/2024 09:42 /inge/ YI BLANCHARD RN REGISTERED NURSE * AWAITING SIGNATURE * MAXIMILIANO KUMARI [facility] Feb 16, 2024 01:57 PM ADMINISTRATIVE NOTE: LOCAL TITLE: CCC: SCHEDULING ADMINISTRATION STANDARD TITLE: ADMINISTRATIVE NOTE DATE OF NOTE: FEB 16, 2024@13:57:28 ENTRY DATE: FEB 16, 2024@13:57:28 AUTHOR: ALVA CONRAD COSIGNER: URGENCY: STATUS: COMPLETED CCC: SCHEDULING ADMINISTRATION Has ADDENDA Patient Demographics Patient Name: FATEMEH GOMEZ Patient Primary Phone: [phone] Patient Primary Address: [address] [place] [id number] Patient : 1945 Patient Age: 78 Call Back Number: [phone] Caller/Recipient Relation to Patient: Other If Other Describe Relation to Patient: vna Caller Name: Marky Administrative Administrative Note Reason: Home Health / [facility] Administrative Note Comments: VNA called in wound in groin area has opened up and is very red and she would like to speak to Pact RN. Please call her [phone] /inge/ ALVA CONRAD Signed: 02/16/2024 13:57 Receipt Acknowledged By: 02/17/2024 09:42 /inge/ YI BLANCHARD RN REGISTERED NURSE 02/18/2024 08:22 /inge/ MAXIMILIANO KUMARI LPN LPN 02/17/2024 ADDENDUM STATUS: COMPLETED Attempted to contact via telephone, generic message asking to contact PACT. [facility] nurse Randal contacted via telephone, informed of sick-call availability, will request MSA contact to schedule PCP visit for follow-up. MSA- Please contact to assist with scheduling PCP visit for follow-up regarding recurring rash to groin. was also hospitalized for pneumonia since last visit in July. /mini BLANCHARD RN REGISTERED NURSE Signed: 02/17/2024 09:42 Receipt Acknowledged By: 02/17/2024 10:05 /mini MORRIS 02/17/2024 ADDENDUM STATUS: COMPLETED MENS LOCKER ROOM ATTENDANT SPOKE WITH 'S TO MAKE APPOINTMENT WITH PCP. /mini MORRIS Signed: 02/17/2024 10:09 02/17/2024 ADDENDUM STATUS: COMPLETED Received return call from 's spouse. Spouse reports rash is not that bad , states it is likely caused by friction from wearing incontinence briefs. Spouse states she does not intend to address prior to follow-up with PCP but will contact PACT as needed. /inge/ YI BLANCHARD RN REGISTERED NURSE Signed: 02/17/2024 10:18 ALVA CONRAD CNTRL TRN [facility]
--- OUTSIDE RECORDS SUMMARY | 2024-10-17 15:27 | XMS_ITS | Encounter Summary ---
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 Organization [place] Address [address] [place] [address] Care Team Providers Care Medical Device Assembler Name Role Phone GURPREET PEREZ Primary Care [...] Harding's Name Patient's Relationship to Policy Harding [facility] PL[facility] (WNR) MEDICARE ADVANTAGE [facility] (WNR) Oct 25, 2011 [facility] [id number] PATIENT Selected Encounter This section includes the information on record at [place] for the Encounter. Date/Time Encounter Type Encounter Description Reason Pro vider Source May 15, 2024 12:00 PM Outpatient Encounter EVENT (HISTORICAL) IHE Encounter Template [...] Appointment Type Appointme nt Facility Name Jun 05, 2024 08:00 AM AMBULATORY - MEDICINE [facility] Jun 13, 2024 10:00 AM AMBULATORY - REHAB MEDICIN E [facility] Aug 05, 2024 08:00 AM [facility] Aug 22, 2024 09:30 AM [facility] Aug 29, 2024 08:00 AM AMBULATORY - MEDICINE [facility] Sep 20, 2024 09:00 AM AMBULATORY - MEDICINE [facility] Oct 03, 2024 11:30 AM AMBULATORY - MEDICINE [facility] Social History: Smoking Status (Most current) [...] 03, 2023 08:58 AM [place]-TOBACCO FORMER USER [facility] Tobacco Use History This section includes a history of the smoking, or tobacco-related health factors, that were collected on or before the date of the Encounter. The data comes from the [place] facility where the Encounter took place. Date/Time Smoking Status/Tobacco Use Comment F acility Jun 03, 2023 08:58 AM [place]-TOBACCO QUIT 15 YRS OR MORE [facility] Advance Directives: All historical [...] Jun 30, 2019 ADVANCE DIRECTIVE CASSIE POWELL [facility] Encounter Notes: All associated encounter notes This section contains the clinical notes associated to the Encounter. Date/Time Encounter Note(s) Provider Source May 15, 2024 12:00 PM NONVA CONSULT: LOCAL TITLE: COMMUNITY CARE-CONSULT RESULT NOTE STANDARD TITLE: NONVA CONSULT DATE OF NOTE: MAY 15, 2024@12:00 ENTRY DATE: JUN 13, 2024@14:57:10 AUTHOR: YUNIEL SANDERS COSIGNER: URGENCY: STATUS: COMPLETED VistA Imaging - Scanned Document SCANNED DOCUMENT SIGNATURE NOT REQUIRED Electronically Filed: 06/13/2024 by: YUNIEL LUIS CNTRL W[facility]
--- OUTSIDE RECORDS SUMMARY | 2024-10-17 15:27 | XMS_ITS ---
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 Organization [place] Address [address] [place] [address] Care Team Providers Care Registered Safety Engineer Name Role Phone GURPREET PEREZ Primary [...] Harding's Name Patient's Relationship to Policy Harding [facility] (WNR) MEDICARE ADVANTAGE [facility] (WNR) Oct 25, 2011 [facility] [id number] PATIENT Selected Encounter This section includes the information on record at [place] for the Encounter. Date/Time Encounter Type Encounter Description Reason Pro vider Source Feb 14, 2024 12:00 AM Outpatient Encounter COMMUNITY CARE [...] 20 appointments. The data comes from all [place] treatment facilities. Appointment Date/Time Appointment Type Appointme nt Facility Name February 25, 2024 02:00 PM AMBULATORY - REHAB MEDICIN E [facility] Mar 30, 2024 10:00 AM AMBULAT[facility] May 12, 2024 11:30 AM AMBULATORY - [facility] MEDIC[facility] Jun 05, 2024 08:00 AM [facility]UL[facility] Jun 13, 2024 10:00 AM AMBULATORY - REHAB MEDIC[facility] Aug 05, 2024 08:00 AM AMBULATORY - MEDICINE [facility] Social History: Smoking Status (Most current) and Tobacco Use (All prior to encounter date) This section includes the most current, and the historical, smoking and tobacco- related health factors from the [place] facility where the Encounter took place. Current Smoking Status This section includes the most current smoking, or tobacco-related health factor, from the [place] facility where the Encounter took place. Date/Time Current Smoking Status Comment Facil ity Jun 03, 2023 08:58 AM [place]-TOBACCO FORMER USER [facility] Tobacco Use History This section includes a history of the smoking, or tobacco-related health factors, that were collected on or before the date of the Encounter. The data comes from the [place] facility where the Encounter took place. Date/Time Smoking Status/Tobacco Use Comment F acility Jun 03, 2023 08:58 AM VA-TOBACCO QUIT 15 YRS OR MORE [facility] Advance Directives: All historical and current Section Date Range: From patient's date of to the date document was created. This section includes ALL of a patient's completed or amended [place] Advance and Rescinded Directives. The entries below indicate that a directive exists for the patient, but an actual copy is not included with this document. The data comes from all [place] facilities. Date Advance Directives Provider Source Jul 15, 2023 ADVANCE DIRECTIVE ROGER PEDRAZA Jun 30, 2019 ADVANCE DIRECTIVE CASSIE POWELL [facility] Encounter Notes: All associated encounter notes This section contains the clinical notes associated to the Encounter. Date/Time Encounter Note(s) Provider Source Feb 14, 2024 12:00 AM NONVA CONSULT: LOCAL TITLE: COMMUNITY CARE-CONSULT RESULT NOTE STANDARD TITLE: NONVA CONSULT DATE OF NOTE: FEB 14, 2024 ENTRY DATE: MARCH 01, 2024@11:58:42 AUTHOR: CASSIE POWELL EXP COSIGNER: URGENCY: STATUS: COMPLETED VistA Imaging - Scanned Document SCANNED DOCUMENT SIGNATURE NOT REQUIRED Electronically Filed: 03/01/2024 by: CASSIE ARIAS CNTRL [facility]
--- OUTSIDE RECORDS SUMMARY | 2024-10-17 15:27 | XMS_ITS | Encounter Summary ---
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 Organization [place] Address [address] [place] [address] Care Team Providers Care Diesel Powerplant Mechanic Helper Name Role Phone GURPREET PEREZ Primary [...] [facility] PL[facility] (WNR) MEDICARE ADVANTAGE [facility] (WNR) Oct 25, 2011 [facility] [id number] PATIENT Selected Encounter This section includes the information on record at [place] for the Encounter. Date/Time Encounter Type Encounter Description Reason Pro vider Source March 14, 2024 09:17 AM Outpatient Encounter OCCUPATIONAL THERAPY IHE Encounter Template Text not used by [...] 20 appointments. The data comes from all [place] treatment facilities. Appointment Date/Time Appointment Type Appointme nt Facility Name Mar 30, 2024 10:00 AM [facility] May 12, 2024 11:30 AM AMBULATORY - [facility]HAB MEDICIN E [place] [facility] Jun 05, 2024 08:00 AM AMBULATORY - MEDICINE [facility] NTR WSTRN [facility] Jun 13, 2024 10:00 AM AMBULATORY - REHAB MEDICIN E [place] [facility]L [facility]N [facility] Aug 05, 2024 08:00 AM AMBULATORY - [facility] Aug 22, 2024 09:30 AM AMBULATORY - MEDICINE [facility] [place] Aug 29, 2024 08:00 AM AMBULATORY - MEDICINE [facility] Social History: Smoking Status (Most current) and Tobacco Use (All prior to encounter date) This section includes the most current, and the historical, smoking and tobacco- related health factors from the [place] facility where the Encounter took place. Current Smoking Status This section includes the most current smoking, or tobacco-related health factor, from the [place] facility where the Encounter took place. Date/Time Current Smoking Status Comment Facil ity Jun 03, 2023 08:58 AM [place]-TOBACCO FORMER USER [facility] Tobacco Use History This section includes a history of the smoking, or tobacco-related health factors, that were collected on or before the date of the Encounter. The data comes from the [place] facility where the Encounter took place. Date/Time Smoking Status/Tobacco Use Comment F acility Jun 03, 2023 08:58 AM [place]-TOBACCO QUIT 15 YRS OR MORE [facility] Advance Directives: All historical and current Section Date Range: From patient's date of to the date document was created. This section includes ALL of a patient's completed or amended [place] Advance and Rescinded Directives. The entries below indicate that a directive exists for the patient, but an actual copy is not included with this document. The data comes from all [place] facilities. Date Advance Directives Provider Source Jul 15, 2023 ADVANCE DIRECTIVE ROGER PEDRAZA Jun 30, 2019 ADVANCE DIRECTIVE CASSIE POWELL [facility] Encounter Notes: All associated encounter notes This section contains the clinical notes associated to the Encounter. Date/Time Encounter Note(s) Provider Source March 14, 2024 03:56 PM ADDENDUM: LOCAL TITLE: Addendum STANDARD TITLE: ADDENDUM DATE OF NOTE: MARCH 14, 2024@15:56:48 ENTRY DATE: MARCH 14, 2024@15:56:49 AUTHOR: PRITI GONZALES EXP COSIGNER: URGENCY: STATUS: COMPLETED Please refer to Physical Therapy /es/ PRITI GONZALES OTR/L OCCUPATIONAL THERAPIST Signed: 03/14/2024 15:57 Receipt Acknowledged By: 03/15/2024 14:08 /inge/ WALT STEVENSON ADVANCED OUTSOLE CUTTER MACHINE === --- Original Document --- 03/14/24 ADMINISTRATIVE NOTE: Received call from [facility] ([phone]) requesting to have a call back regarding possible rollator walker for , He fell and bent his standard walker . /inge/ WALT STEVENSON ADVANCED OUTSOLE CUTTER MACHINE Signed: 03/14/2024 09:18 Receipt Acknowledged By: * AWAITING SIGNATURE * PAMELA JAY 03/14/2024 15:56 /inge/ PRITI GONZALES OTR/Glen OCCUPATIONAL THERAPIST [facility]ES [facility] March 14, 2024 09:17 AM ADMINISTRATIVE NOTE: LOCAL TITLE: ADMINISTRATIVE NOTE STANDARD TITLE: ADMINISTRATIVE NOTE DATE OF NOTE: MARCH 14, 2024@09:17 ENTRY DATE: MARCH 14, 2024@09:17:24 AUTHOR: WALT STEVENSON COSIGNER: URGENCY: STATUS: COMPLETED ADMINISTRATIVE NOTE Has ADDENDA Received call from [facility] ([phone]) requesting to have a call back regarding possible rollator walker for , He fell and bent his standard walker . /es/ WALT STEVENSON ADVANCED OUTSOLE CUTTER MACHINE Signed: 03/14/2024 09:18 Receipt Acknowledged By: 03/15/2024 16:05 /es/ EDDIE HOWELL OCCUPATION SCRIPT EDITOR 03/14/2024 15:56 /inge/ PRITI GONZALES OTR/L OCCUPATIONAL THERAPIST 03/15/2024 15:18 /inge/ CHAU CARRERA LICENSE DRESSMAKING TEACHER 03/14/2024 ADDENDUM STATUS: COMPLETED Please refer to Physical Therapy /inge/ PRITI GONZALES OTR/L OCCUPATIONAL THERAPIST Signed: 03/14/2024 15:57 Receipt Acknowledged By: 03/15/2024 14:08 /inge/ WALT STEVENSON ADVANCED OUTSOLE CUTTER MACHINE 03/15/2024 ADDENDUM STATUS: COMPLETED ordered replacement FWW on this date to be sent to 's home /inge/ CHAU CARRERA LICENSE DRESSMAKING TEACHER Signed: 03/15/2024 15:18 WALT STEVENSON [place] CNTR WSTRN [facility]
--- OUTSIDE RECORDS SUMMARY | 2024-10-17 15:27 | XMS_ITS ---
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 [place] Organization Department of [place] Address [address] [place] [address] Care Team Providers Care Mixer Operator Raw Salt Name Role Phone GURPREET PEREZ Primary Care [...] Harding's Name Patient's Relationship to Policy Harding [facility] (WNR) MEDICARE ADVANTAGE [facility] (WNR) Oct 25, 2011 [facility] [id number] PATIENT Selected Encounter This section includes the information on record at [place] for the Encounter. Date/Time Encounter Type Encounter Description Reason Pro vider Source Jun 12, 2024 12:00 AM Outpatient Encounter COMMUNITY CARE [...] 10:00 AM [facility]BULAT[facility] Aug 05, 2024 08:00 AM AMBULATORY - MEDICINE [place] C NTRL WSN [facility] Aug 22, 2024 09:30 AM AMBULATORY - MEDICINE [facility] Aug 29, 2024 08:00 AM AMBULATORY - MEDICINE [place] C NTRL WSTRN [facility] Sep 20, 2024 09:00 AM AMBULATORY - MEDICINE [facility] Oct 03, 2024 11:30 AM AMBULATORY - MEDICINE [facility] Social History: Smoking Status (Most [...] 03, 2023 08:58 AM [place]-TOBACCO FORMER USER [facility] Tobacco Use History This section includes a history of the smoking, or tobacco-related health factors, that were collected on or before the date of the Encounter. The data comes from the [place] facility where the Encounter took place. Date/Time Smoking Status/Tobacco Use Comment F acility Jun 03, 2023 08:58 AM [place]-TOBACCO QUIT 15 YRS OR MORE [facility] Advance Directives: All historical and current [...] 30, 2019 ADVANCE DIRECTIVE CASSIE POWELL [facility] Encounter Notes: All associated encounter notes This section contains the clinical notes associated to the Encounter. Date/Time Encounter Note(s) Provider Source Jun 12, 2024 12:00 AM NONVA CONSULT: LOCAL TITLE: COMMUNITY CARE-CONSULT RESULT NOTE STANDARD TITLE: NONVA CONSULT DATE OF NOTE: JUN 12, 2024 ENTRY DATE: JUL 11, 2024@14:51:45 AUTHOR: YUNIEL SANDERSIGNER: URGENCY: STATUS: COMPLETED VistA Imaging - Scanned Document SCANNED DOCUMENT SIGNATURE NOT REQUIRED Electronically Filed: 07/11/2024 by: YUNIEL SANDERSYUNIEL SELVIN [facility] Jun 12, 2024 12:00 AM NONVA CONSULT: LOCAL TITLE: COMMUNITY CARE-CONSULT RESULT NOTE STANDARD TITLE: NONVA CONSULT DATE OF NOTE: JUN 12, 2024 ENTRY DATE: JUL 11, 2024@15:34:14 AUTHOR: YUNIEL SANDERSIGNER: URGENCY: STATUS: COMPLETED VistA Imaging - Scanned Document SCANNED DOCUMENT SIGNATURE NOT REQUIRED Electronically Filed: 07/11/2024 by: YUNIEL LUIS [facility] Jun 12, 2024 12:00 AM NONVA CONSULT: LOCAL TITLE: COMMUNITY CARE-CONSULT RESULT NOTE STANDARD TITLE: NONVA CONSULT DATE OF NOTE: JUN 12, 2024 ENTRY DATE: JUL 11, 2024@15:36:56 AUTHOR: YUNIEL SANDERSIGNER: URGENCY: STATUS: COMPLETED VistA Imaging - Scanned Document SCANNED DOCUMENT SIGNATURE NOT REQUIRED Electronically Filed: 07/11/2024 by: [facility]EL [facility] Jun 12, 2024 12:00 AM NONVA CONSULT: LOCAL TITLE: COMMUNITY CARE-CONSULT RESULT NOTE STANDARD TITLE: NONVA CONSULT DATE OF NOTE: JUN 12, 2024 ENTRY DATE: JUL 11, 2024@15:45:23 AUTHOR: YUNIEL SANDERSIGNER: URGENCY: STATUS: COMPLETED VistA Imaging - Scanned Document SCANNED DOCUMENT SIGNATURE NOT REQUIRED Electronically Filed: 07/11/2024 by: YUNIEL LUIS [facility]
--- OUTSIDE RECORDS SUMMARY | 2024-10-17 15:27 | XMS_ITS ---
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 Affairs ([place]) Organization Department of [place] Address [address] [place] [address] Care Team Providers Care Body And Frame Man Name Role Phone GURPREET PEREZ Primary Care [...] Harding's Name Patient's Relationship to Policy Harding [facility] (WNR) MEDICARE ADVANTAGE [facility] (WNR) Oct 25, 2011 [facility] [id number]OMEZ PATIENT Selected Encounter This section includes the information on record at [place] for the Encounter. Date/Time Encounter Type Encounter Description Reason Pro vider Source Apr 24, 2024 12:00 PM Outpatient Encounter COMMUNITY CARE [...] 20 appointments. The data comes from all [place] treatment facilities. Appointment Date/Time Appointment Type Appointme nt Facility Name May 12, 2024 11:30 AM [facility] Jun 05, 2024 08:00 AM AMBULATORY - MEDICINE [place] C NTRL W[facility]N [facility] Jun 13, 2024 10:00 AM [facility] Aug 05, 2024 08:00 AM AMBULATORY - MEDICINE [place] C NTRL WSTRN [facility] Aug 22, 2024 09:30 AM AMBULATORY - MEDICINE [facility] Aug 29, 2024 08:00 AM AMBULATORY - MEDICINE [place] C NTRL WSTRN [facility] Sep 20, 2024 09:00 AM AMBULATORY - MEDICINE [facility] Oct 03, 2024 11:30 AM AMBULATORY - MEDICINE [facility] Social History: Smoking Status (Most current) and Tobacco Use (All prior to encounter date) This section includes the most current, and the historical, smoking and tobacco- related health factors from the [place] facility where the Encounter took place. Current Smoking Status This section includes the most current smoking, or tobacco-related health factor, from the [place] facility where the Encounter took place. Date/Time Current Smoking Status Comment Facil ity Jun 03, 2023 08:58 AM [place]-TOBACCO FORMER USER [facility] Tobacco Use History This section includes a history of the smoking, or tobacco-related health factors, that were collected on or before the date of the Encounter. The data comes from the [place] facility where the Encounter took place. Date/Time Smoking Status/Tobacco Use Comment F acility Jun 03, 2023 08:58 AM [place]-TOBACCO QUIT 15 YRS OR MORE [facility] Advance Directives: All historical and current Section Date Range: From patient's date of to the date document was created. This section includes ALL of a patient's completed or amended [place] Advance and Rescinded Directives. The entries below indicate that a directive exists for the patient, but an actual copy is not included with this document. The data comes from all [place] facilities. Date Advance Directives Provider Source Jul 15, 2023 ADVANCE DIRECTIVE ROGER PEDRAZA Jun 30, 2019 ADVANCE DIRECTIVE CASSIE POWELL [facility] Encounter Notes: All associated encounter notes This section contains the clinical notes associated to the Encounter. Date/Time Encounter Note(s) Provider Source Apr 24, 2024 12:00 PM NONVA CONSULT: LOCAL TITLE: COMMUNITY CARE-CONSULT RESULT NOTE STANDARD TITLE: NONVA CONSULT DATE OF NOTE: APR 24, 2024@12:00 ENTRY DATE: MAY 18, 2024@08:27:45 AUTHOR: LIBAN TRIMBLE EXP COSIGNER: URGENCY: STATUS: COMPLETED VistA Imaging - Scanned Document SCANNED DOCUMENT SIGNATURE NOT REQUIRED Electronically Filed: 05/18/2024 by: LIBAN TRIMBLE [employer] APPLICATIONS DEVELOPER LIBAN TRIMBLE [facility]
--- OUTSIDE RECORDS SUMMARY | 2024-10-17 15:27 | XMS_ITS ---
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 [place] Affairs [place] Organization Department of [place] Address [address] [place] [address] Care Team Providers Care Database Reporting Consultant Name Role Phone GURPREET PEREZ Primary Care [...] Harding's Name Patient's Relationship to Policy Harding [facility] (WNR) MEDICARE ADVANTAGE [facility] (WNR) Oct 25, 2011 [facility] [id number] PATIENT Selected Encounter This section includes the information on record at [place] for the Encounter. Date/Time Encounter Type Encounter Description Reason Pro vider Source May 08, 2024 01:47 PM Outpatient Encounter PRIMARY CARE/MEDICINE IHE Encounter Template Text not used by [place] Plan of Treatment: Future Appointments (+ 6 [...] 20 appointments. The data comes from all [place] treatment facilities. Appointment Date/Time Appointment Type Appointme nt Facility Name May 12, 2024 11:30 AM AMBULATORY [facility] [place] [facility] Jun 05, 2024 08:00 AM AMBULATORY - MEDICINE [place] C [facility]L [facility] Jun 13, 2024 10:00 AM [facility] Aug 05, 2024 08:00 AM AMBULATORY - MEDICINE [place] C NTRL WSTRN [facility] Aug 22, 2024 09:30 AM AMBULATORY - MEDICINE [facility] Aug 29, 2024 08:00 AM AMBULATORY - MEDICINE [place] C [facility] Sep 20, 2024 09:00 AM AMBULATORY - MEDICINE [facility] Oct 03, 2024 11:30 AM [facility] Social History: Smoking Status (Most current) and Tobacco Use (All prior to encounter date) This section includes the most current, and the historical, smoking and tobacco- related health factors from the [place] facility where the Encounter took place. Current Smoking Status This section includes the most current smoking, or tobacco-related health factor, from the [place] facility where the Encounter took place. Date/Time Current Smoking Status Comment Facil ity Jun 03, 2023 08:58 AM VA-TOBACCO FORMER USER [facility] Tobacco Use History This section includes a history of the smoking, or tobacco-related health factors, that were collected on or before the date of the Encounter. The data comes from the [place] facility where the Encounter took place. Date/Time Smoking Status/Tobacco Use Comment F acility Jun 03, 2023 08:58 AM VA-TOBACCO QUIT 15 YRS OR MORE [facility] [...] this document. The data comes from all [place] facilities. Date Advance Directives Provider Source Jul 15, 2023 ADVANCE DIRECTIVE ROGER PEDRAZA Jun 30, 2019 ADVANCE DIRECTIVE CASSIE POWELL [place] CNTRL WSTRN [facility] Encounter Notes: All associated encounter notes This section contains the clinical notes associated to the Encounter. Date/Time Encounter Note(s) Provider Source May 08, 2024 01:47 PM PRIMARY CARE RYANUR E MESSAGING: LOCAL TITLE: PRIMARY CARE SECURE MESSAGING STANDARD TITLE: PRIMARY CARE SECURE MESSAGING DATE OF NOTE: MAY 08, 2024@13:47 ENTRY DATE: MAY 08, 2024@14:47:09 AUTHOR: ROGER PEDRAZA EXP COSIGNER: URGENCY: STATUS: COMPLETED PRIMARY CARE SECURE MESSAGING Has ADDENDA ------Original Message ---- Sent: 05/08/2024 02:25 PM ET From: FATEMEH GOMEZ To: ANN PEREZ [facility] Subject: General:Concerns regarding Occupational Therapy discharge I was told that as of the the person doing his therapy will be discharging his services as per recommendation from the [place]. I am concerned that is could be an issue for my because he is a fall risk and I have noticed that he still struggles with having the strength to do several tasks. According to [facility] Care they have to release him unless it is medically necessary. I took him to an orthopedic doctor and he said that he needs to continue with doing therapy. My understanding is I need his [place] primary care doctor authorize a approval to continue this service through the [place]. Please advice. Thank you at advance Maria C Gomez /inge/ ROGER MORRIS Signed: 05/08/2024 14:47 Receipt Acknowledged By: 05/12/2024 09:14 /inge/ MAXIMILIANO KUMARI LPN LPN 05/10/2024 13:23 /inge/ JANINA ROWE RN REGISTERED NURSE 05/10/2024 ADDENDUM STATUS: COMPLETED Spoke with 's spouse, Maria C. Advised the consult has been renewed. Provided her with the Referral Number: [id number] /inge/ JANINA ROWE RN REGISTERED NURSE Signed: 05/10/2024 13:23 ROGER PEDRAZA CNTRL WSTRN [facility]
--- OUTSIDE RECORDS SUMMARY | 2024-10-17 15:27 | XMS_ITS | Encounter Summary ---
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 Affairs ([place]) Organization Department of Veter[place] Affairs [place]) Address [address] [place] [address] Care Team Providers Care Editor Publications Name Role Phone GURPREET PEREZ Primary Care [...] Harding's Name Patient's Relationship to Policy Harding [facility] PL[facility] (WNR) MEDICARE ADVANTAGE [facility] (WNR) Oct 25, 2011 [facility] [id number] PATIENT Selected Encounter This section includes the information on record at [place] for the Encounter. Date/Time Encounter Type Encounter Description Reason Pro vider Source Apr 03, 2024 12:00 PM Outpatient Encounter COMMUNITY CARE [...] 20 appointments. The data comes from all [place] treatment facilities. Appointment Date/Time Appointment Type Appointme nt Facility Name May 12, 2024 11:30 AM AMBULAT[facility] Jun 05, 2024 08:00 AM AMBULATORY - MEDICINE DE C NTRL WSTRN [facility] Jun 13, 2024 10:00 AM AMBULATORY - [facility] Aug 05, 2024 08:00 AM AMBULATORY - MEDICINE DE C NTRL WSTRN [facility] Aug 22, 2024 09:30 AM AMBULATORY - MEDICINE SPR[facility] Aug 29, 2024 08:00 AM AMBULATORY - MEDICINE DE C NTRL WSTRN [facility] Sep 20, 2024 09:00 AM AMBULATORY - MEDICINE SPR[facility] Oct 03, 2024 11:30 AM AMBULATORY - MEDICINE [facility] Social History: Smoking Status (Most current) and Tobacco Use (All prior to encounter date) This section includes the most current, and the historical, smoking and tobacco- related health factors from the [place] facility where the Encounter took place. Current Smoking Status This section includes the most current smoking, or tobacco-related health factor, from the [place] facility where the Encounter took place. Date/Time Current Smoking Status Comment Facil ity Jun 03, 2023 08:58 AM VA-TOBACCO FORMER USER [facility] Tobacco Use History This section includes a history of the smoking, or tobacco-related health factors, that were collected on or before the date of the Encounter. The data comes from the [place] facility where the Encounter took place. Date/Time Smoking Status/Tobacco Use Comment F acility Jun 03, 2023 08:58 AM [place]-TOBACCO QUIT [facility]RS [facility] [...] this document. The data comes from all [place] facilities. Date Advance Directives Provider Source Jul 15, 2023 ADVANCE DIRECTIVE ROGER PEDRAZA Jun 30, 2019 ADVANCE DIRECTIVE CASSIE POWELL [facility] Encounter Notes: All associated encounter notes This section contains the clinical notes associated to the Encounter. Date/Time Encounter Note(s) Provider Source Apr 03, 2024 12:00 PM NONVA CONSULT: LOCAL TITLE: COMMUNITY CARE-CONSULT RESULT NOTE STANDARD TITLE: NONVA CONSULT DATE OF NOTE: APR 03, 2024@12:00 ENTRY DATE: MAY 10, 2024@12:53:21 AUTHOR: LIBAN TRIMBLE EXP COSIGNER: URGENCY: STATUS: COMPLETED VistA Imaging - Scanned Document SCANNED DOCUMENT SIGNATURE NOT REQUIRED Electronically Filed: 05/10/2024 by: LIBAN TRIMBLE [employer] WORKFLOW CONSULTANT LIBAN TRIMBLE [facility]
--- OUTSIDE RECORDS SUMMARY | 2024-10-17 15:27 | XMS_ITS | Encounter Summary ---
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 Affairs ([place]) Organization Department of [place] Address [address] [place] [address] Care Team Providers Care Director Law Enforcement Name Role Phone GURPREET PEREZ Primary Care [...] Name Patient's Relationship to Policy Harding [facility] (WNR) MEDICARE ADVANTAGE [facility] (WNR) Oct 25, 2011 [facility] [id number]OMEZ PATIENT Selected Encounter This section includes the information on record at [place] for the Encounter. Date/Time Encounter Type Encounter Description Reason Pro vider Source Jan 18, 2024 12:00 AM Outpatient Encounter COMMUNITY CARE [...] 20 appointments. The data comes from all [place] treatment facilities. Appointment Date/Time Appointment Type Appointme nt Facility Name Feb 05, 2024 08:00 AM AMBULATORY - MEDICINE [facility] February 25, 2024 02:00 PM [facility] Mar 30, 2024 10:00 AM AMBULATORY - REHAB MEDICIN E [facility] May 12, 2024 11:30 AM [facility]UL[facility] Jun 05, 2024 08:00 AM AMBULATORY - MEDICINE [facility] Jun 13, 2024 10:00 AM AMBULATORY - REHAB MEDICIN E [facility] Social History: Smoking Status (Most current) [...] 03, 2023 08:58 AM VA-TOBACCO FORMER USER [facility] Tobacco Use History This section includes a history of the smoking, or tobacco-related health factors, that were collected on or before the date of the Encounter. The data comes from the [place] facility where the Encounter took place. Date/Time Smoking Status/Tobacco Use Comment F acility Jun 03, 2023 08:58 AM VA-TOBACCO QUIT 15 YRS OR MORE [facility] Advance Directives: All historical and current Section Date Range: From patient's date of to the date document was created. This section includes ALL of a patient's completed or amended [place] Advance and Rescinded Directives. The entries below indicate that a directive exists for the patient, but an actual copy is not included with this document. The data comes from all [place] facilities. Date Advance Directives Provider Source Jul 15, 2023 ADVANCE DIRECTIVE ROGER PEDRAZA Jun 30, 2019 ADVANCE DIRECTIVE CASSIE POWELL [facility] Encounter Notes: All associated encounter notes This section contains the clinical notes associated to the Encounter. Date/Time Encounter Note(s) Provider Source Jan 18, 2024 12:00 AM NONVA CONSULT: LOCAL TITLE: COMMUNITY CARE-CONSULT RESULT NOTE STANDARD TITLE: NONVA CONSULT DATE OF NOTE: JAN 18, 2024 ENTRY DATE: FEB 01, 2024@11:26:35 AUTHOR: TRE OLIVEIRA EXP COSIGNER: URGENCY: STATUS: COMPLETED VistA Imaging - Scanned Document SCANNED DOCUMENT SIGNATURE NOT REQUIRED Electronically Filed: 02/01/2024 by: TRE MORGAN CNTRL WSN [facility]
--- OUTSIDE RECORDS SUMMARY | 2024-10-17 15:27 | XMS_ITS ---
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 ns Affairs ([place]) Organization Department of [place] Address [address] [place] [address] Care Team Providers Care Public Health Nutritionist Name Role Phone GURPREET PEREZ Primary Care [...] Harding's Name Patient's Relationship to Policy Harding [facility] (WNR) MEDICARE ADVANTAGE [facility] (R) Oct 25, 2011 [facility] [id number] [address] GOMEZ PATIENT Selected Encounter This section includes the information on record at [place] for the Encounter. Date/Time Encounter Type Encounter Description Reason Provider Source Jan 19, 2024 11:47 AM HC PRO PHONE CALL 11-20 MIN TELEPHONE/BLANCO OLIVARES ICD-10-CM Z74.1 Need for assistance with personal care BILL BYERS Luisito Encounter Template Text not used by [place] Assessments - Encounter Diagnoses This section includes the primary and secondary diagnoses documented for the Encounter. Date/Time Primary/Secondary Diagnosis Diagnosis Name Provider Source Jan 19, 2024 11:47 AM PRIMARY Need for assistance with personal care BILL BYERS [facility] Plan of Treatment: Future Appointments (+ 6 months) and Future Tests (+/- 45 days) The Plan of Treatment section includes future care activities for the patient from all [place] [facility]. This section includes future appointments and future [...] 2024 08:00 AM AMBULATORY - MEDICINE [facility] February 25, 2024 02:00 PM [facility] Mar 30, 2024 10:00 AM [facility]UL[facility] May 12, 2024 11:30 AM [facility]UL[facility] Jun 05, 2024 08:00 AM AMBULATORY - MEDICINE [facility] Jun 13, 2024 10:00 AM [facility]ULAT[facility] Social History: Smoking Status (Most current) and Tobacco Use (All prior to encounter date) This section includes the most current, and the historical, smoking and tobacco- related health factors from the [place] facility where the Encounter took place. Current Smoking Status This section includes the most current smoking, or tobacco-related health factor, from the [place] facility where the Encounter took place. Date/Time Current Smoking Status Comment Facil ity Jun 03, 2023 08:58 AM VA-TOBACCO FORMER USER [facility] Tobacco Use History This section includes a history of the smoking, or tobacco-related health factors, that were collected on or before the date of the Encounter. The data comes from the [place] facility where the Encounter took place. Date/Time Smoking Status/Tobacco Use Comment F acility Jun 03, 2023 08:58 AM [place]-TOBACCO QUIT 15 YRS OR MORE [facility] Advance Directives: All historical and current Section Date Range: From patient's date of to the date document was created. This section includes ALL of a patient's completed or amended [place] Advance and Rescinded Directives. The entries below indicate that a directive exists for the patient, but an actual copy is not included with this document. The data comes from all [place] facilities. Date Advance Directives Provider Source Jul 15, 2023 ADVANCE DIRECTIVE ROGER PEDRAZARACHEL Louis Jun 30, 2019 ADVANCE DIRECTIVE CASSIE POWELL [facility] Encounter Notes: All associated encounter notes This section contains the clinical notes associated to the Encounter. Date/Time Encounter Note(s) Provider Source Jan 19, 2024 11:48 AM CAREGIVER CERTIFICATE: LOCAL TITLE: CSP TELEPHONE NOTE STANDARD TITLE: CAREGIVER CERTIFICATE DATE OF NOTE: JAN 19, 2024@11:48 ENTRY DATE: JAN 19, 2024@11:48:42 AUTHOR: BILL BYERS EXP COSIGNER: URGENCY: STATUS: COMPLETED This technical writer spoke with the [place]'s Caregiver, she had called to discuss the steps of the appeal process for the [employer]. She noted that she had received to request to appeal forms, and had filled them out with supporting documentation from community providers and in-home providers. She went over the ADLs that she supports the with, noting that he is unable to dress or shower independently, and that he continues to present as a significant and worsening fall risk. Her intent is to drop off the paperwork directly to the Patient customer service representative when she in next in [place]. /inge/ BILL BYERS LCSW Clinical Architectural Draftsman Signed: 01/19/2024 11:53 BILL BYERS [facility]
--- OUTSIDE RECORDS SUMMARY | 2024-10-17 15:27 | XMS_ITS | Encounter Summary ---
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 Organization [place] Address [address] [place] [address] Care Team Providers Care Benchroom Shop Optician Name Role Phone GURPREET PEREZ Primary Care [...] Harding's Name Patient's Relationship to Policy Harding [facility] (WNR) MEDICARE ADVANTAGE [facility] (R) Oct 25, 2011 [facility] [id number] PATIENT Selected Encounter This section includes the information on record at [place] for the Encounter. Date/Time Encounter Type Encounter Description Reason Provider Source Jun 13, 2024 10:00 AM HEARING SERVICE AUDIOLOGY ICD-10-CM Z46.1 Encounter for fitting and adjustment of hearing aid GIL SANDY Encounter Template Text not used by [place] Assessments - Encounter Diagnoses This section includes the primary and secondary diagnoses documented for the Encounter. Date/Time Primary/Secondary Diagnosis Diagnosis Name Provider Source Jun 13, 2024 10:32 AM PRIMARY Encounter for fitting and adjustment of hearing aid GIL SANDY [facility] Jun 13, 2024 10:32 AM SECONDARY Sensorineural hearing loss, bilateral CAMINITI,GIL E [facility] Plan of Treatment: Future Appointments (+ 6 months) and Future Tests (+/- 45 days) The Plan of Treatment section includes future care activities for the patient from all [place] treatmentfacilities. This section includes future appointments and future orders which are active, pending or scheduled. Future Appointments This section includes appointments that were scheduled to occur 6 months from the date of the Encounter, up to a maximum of 20 appointments. The data comes from all [place] treatment facilities. Appointment Date/Time Appointment Type Appointme nt Facility Name Aug 05, 2024 08:00 AM AMBULATORY MEDICINE [facility] Aug 22, 2024 09:30 AM AMBULATORY - MEDICINE [facility] Aug 29, 2024 08:00 AM AMBULATORY MEDICINE [facility] Sep 20, 2024 09:00 AM AMBULATORY MEDICINE [facility] Oct 03, 2024 11:30 AM AMBULATORY MEDICINE [facility] Social History: Smoking Status (Most current) and Tobacco Use (All prior to encounter date) This section includes the most current, and the historical, smoking and tobacco- related health factors from the [place] facility where the Encounter took place. Current Smoking Status This section includes the most current smoking, or tobacco-related health factor, from the [place] facility where the Encounter took place. Date/Time Current Smoking Status Comment Facil ity Jun 03, 2023 08:58 AM [place]-TOBACCO FORMER USER [facility] Tobacco Use History This section includes a history of the smoking, or tobacco-related health factors, that were collected on or before the date of the Encounter. The data comes from the [place] facility where the Encounter took place. Date/Time Smoking Status/Tobacco Use Comment F acility Jun 03, 2023 08:58 AM NH-TOBACCO QUIT 15 YRS OR MORE [facility] Advance Directives: All historical and current Section Date Range: From patient's date of to the date document was created. This section includes ALL of a patient's completed or amended [place] Advance and Rescinded Directives. The entries below indicate that a directive exists for the patient, but an actual copy is not included with this document. The data comes from all [place] facilities. Date Advance Directives Provider Source Jul 15, 2023 ADVANCE DIRECTIVE ROGER PEDRAZA Jun 30, 2019 ADVANCE DIRECTIVE CASSIE POWELL [place] [facility] Encounter Notes: All associated encounter notes This section contains the clinical notes associated to the Encounter. Date/Time Encounter Note(s) Provider Source Jun 13, 2024 07:47 AM AUDIOLOGY E & M NO TE: LOCAL TITLE: AUDIOLOGY CLINIC STANDARD TITLE: AUDIOLOGY E & M NOTE DATE OF NOTE: JUN 13, 2024@07:47 ENTRY DATE: JUN 13, 2024@07:47:12 AUTHOR: GIL SANDY COSIGNER: URGENCY: STATUS: COMPLETED AUDIOLOGY CLINIC Has ADDENDA Diagnosis: bilateral sensorineural hearing loss Hearing Aid Fitting: SUBJECTIVE (S): The was seen for hearing aid fitting and issuance. S/He had previously been evaluated and found to exhibit significant hearing loss for which amplification was recommended. How does the patient/client best learn? verbal instruction, demonstration Does the patient/client have any cultural and church beliefs, emotional barriers, physical or cognitive limitations, and communication barriers which may impact his/her ability to learn? no Desire and motivation to learn? Good OBJECTIVE (O): Physical fit of earmolds/receivers and domes/hearing aids was good. verified comfort. Verification of an appropriate acoustic response was obtained using Real Ear measurements (speech mapping) and NAL- NL1 targets. The reported good subjective benefit as well. Feedback strategic planning manager was run. Hearing aids were found to be meeting targets adequately and MPO was not exceeding estimated UCL. Settings stored in JONATHAN. ASSESSMENT (A): The following device(s) was/were issued: Make: Oticon Model: Intent miniRITE-R Serial Numbers: [id number] Battery size: RECHARGEABLE Trial Period ends: 11-08-24 Domes/wax guards, etc.: prowax minifit Earmold Information: n/a Merchandise Appraiser size/power: 2/85 detect Program Settings (VC, Programs, Buttons): right raise/left lower Fitting Formula: NAL-NL1 Remote programming: capable Counseling was completed today throughout todays appointment using a standardized curriculum that includes but is not limited to; realistic expectations with amplification in adverse listening environments, acclimatization to own voice and environmental sounds (following real-ear measurements), the importance of consistent use of amplification, proper insertion/removal, care and maintenance (including wax guards/domes if applicable), signal and alerts of devices, and charging/batteries. The was provided the opportunity to practice in office and reports confidence/understanding in all items reviewed. was given written reference materials today. The was informed of and agreed to NH policy on hearing aid issuance: Users are responsible for the maintenance and security of their devices. Determination of need to replace a hearing aid is made by the NH director religious education. Hearing aids will not be replaced in cases of neglect, abuse, or excessive loss. Items issued are for personal use only. Prognosis for successful hearing aid use is good. PLAN (P): 1. Contact clinic with any problems/concerns. 2. The International Outcome Inventory-Hearing Aids (IOI-ELKINS) will be mailed to the in four weeks. He/she was asked to mail back to clinic after completion. Patient Education Education provided on the following topics: hearing aid management Education provided to: P Response to Education: JAYME ANGEL PI Pham Patient P Family F Significant Other SO Verbalizes Understanding VU Returns Demonstration RD Performs Independently PI Lacks Comprehension LC Refused Education RE Not Applicable NA /Rosalia Dawkins, [facility]A STAFF WINDOWS INFRASTRUCTURE ENGINEER Signed: 06/13/2024 10:33 09/06/2024 ADDENDUM STATUS: COMPLETED returned IOI-ELKINS Outcome Measure to the clinic via mail with an overall score of 31 Based on this score: i. No follow-up call is indicated _XX_ ii. Follow-up call is indicated and fitting clinician will be notified __ /es/ MONTSERRAT LOW Audiology Health Architectural Examiner Signed: 09/06/2024 13:50 GIL SANDY CNTRL [facility]
--- OUTSIDE RECORDS SUMMARY | 2024-10-17 15:27 | XMS_ITS ---
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 [place] Organization [place] Address [address] [place] [address] Care Team Providers Care Technology Recruiter Name Role Phone GURPREET PEREZ Primary Care [...] Harding's Name Patient's Relationship to Policy Harding [facility] PLAN [facility] (WNR) MEDICARE ADVANTAGE [facility] (WNR) Oct 25, 2011 [facility] [id number] PATIENT Selected Encounter This section includes the information on record at [place] for the Encounter. Date/Time Encounter Type Encounter Description Reason Pro vider Source May 22, 2024 12:00 AM Outpatient Encounter COMMUNITY CARE [...] 20 appointments. The data comes from all [place] treatment facilities. Appointment Date/Time Appointment Type Appointme nt Facility Name Jun 05, 2024 08:00 AM AMBULATORY - MEDICINE [facility] Jun 13, 2024 10:00 AM AMBULATORY - REHAB MEDICIN E [facility] Aug 05, 2024 08:00 AM AMBULATORY - MEDICINE [facility] Aug 22, 2024 09:30 AM [facility] Aug 29, 2024 08:00 AM AMBULATORY - MEDICINE [facility] Sep 20, 2024 09:00 AM AMBULATORY - MEDICINE [facility] Oct 03, 2024 11:30 AM AMBULATORY - MEDICINE [facility] Social History: Smoking Status (Most current) and Tobacco Use (All prior to encounter date) This section includes the most current, and the historical, smoking and tobacco- related health factors from the [place] facility where the Encounter took place. Current Smoking Status This section includes the most current smoking, or tobacco-related health factor, from the [place] facility where the Encounter took place. Date/Time Current Smoking Status Comment Facil ity Jun 03, 2023 08:58 AM VA-TOBACCO FORMER USER [facility] Tobacco Use History This section includes a history of the smoking, or tobacco-related health factors, that were collected on or before the date of the Encounter. The data comes from the [place] facility where the Encounter took place. Date/Time Smoking Status/Tobacco Use Comment F acility Jun 03, 2023 08:58 AM VA-TOBACCO QUIT 15 YRS OR MORE [facility] Advance Directives: All historical and current Section Date Range: From patient's date of to the date document was created. This section includes ALL of a patient's completed or amended [place] Advance and Rescinded Directives. The entries below indicate that a directive exists for the patient, but an actual copy is not included with this document. The data comes from all [place] facilities. Date Advance Directives Provider Source Jul 15, 2023 ADVANCE DIRECTIVE ROGER PEDRAZA Jun 30, 2019 ADVANCE DIRECTIVE CASSIE POWELL [facility] Encounter Notes: All associated encounter notes This section contains the clinical notes associated to the Encounter. Date/Time Encounter Note(s) Provider Source May 22, 2024 12:00 AM NONVA CONSULT: LOCAL TITLE: COMMUNITY CARE-CONSULT RESULT NOTE STANDARD TITLE: NONVA CONSULT DATE OF NOTE: MAY 22, 2024 ENTRY DATE: JUN 20, 2024@15:58:49 AUTHOR: TRE OLIVEIRA EXP COSIGNER: URGENCY: STATUS: COMPLETED VistA Imaging - Scanned Document SCANNED DOCUMENT SIGNATURE NOT REQUIRED Electronically Filed: 06/20/2024 by: TRE MORGAN CNTL WSN [facility] May 22, 2024 12:00 AM NONVA CONSULT: LOCAL TITLE: COMMUNITY CARE-CONSULT RESULT NOTE STANDARD TITLE: NONVA CONSULT DATE OF NOTE: MAY 22, 2024 ENTRY DATE: JUN 20, 2024@16:00:15 AUTHOR: TRE OLIVEIRA EXP COSIGNER: URGENCY: STATUS: COMPLETED VistA Imaging - Scanned Document SCANNED DOCUMENT SIGNATURE NOT REQUIRED Electronically Filed: 06/20/2024 by: TRE MORGAN [facility]
--- OUTSIDE RECORDS SUMMARY | 2024-10-17 15:27 | XMS_ITS | Encounter Summary ---
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 Organization Department of [place] Address [address] [place] [address] Care Team Providers Care Ui Architect Name Role Phone GURPREET PEREZ Primary Care [...] Harding's Name Patient's Relationship to Policy Harding [facility] PLAN [facility] (WNR) MEDICARE ADVANTAGE [facility] (WNR) Oct 25, 2011 [facility] [id number] PATIENT Selected Encounter This section includes the information on record at [place] for the Encounter. Date/Time Encounter Type Encounter Description Reason Pro vider Source Jun 13, 2024 12:00 AM Outpatient Encounter COMMUNITY CARE [...] The data comes from all [place] treatment facilities. Appointment Date/Time Appointment Type Appointme nt Facility Name Aug 05, 2024 08:00 AM AMBULATORY - MEDICINE [facility] Aug 22, 2024 09:30 AM AMBULATORY - MEDICINE [facility] Aug 29, 2024 08:00 AM AMBULATORY - MEDICINE [facility] Sep 20, 2024 09:00 AM AMBULATORY - MEDICINE [facility] Oct 03, 2024 11:30 AM AMBULATORY - MEDICINE [facility] Social History: Smoking Status (Most current) [...] 03, 2023 08:58 AM VA-TOBACCO FORMER USER [facility] Tobacco Use History This section includes a history of the smoking, or tobacco-related health factors, that were collected on or before the date of the Encounter. The data comes from the [place] facility where the Encounter took place. Date/Time Smoking Status/Tobacco Use Comment F acility Jun 03, 2023 08:58 AM [place]-TOBACCO QUIT 15 YRS OR MORE [facility] Advance Directives: All historical and current Section [...] Jun 30, 2019 ADVANCE DIRECTIVE CASSIE POWELL [facility] Encounter Notes: All associated encounter notes This section contains the clinical notes associated to the Encounter. Date/Time Encounter Note(s) Provider Source Jun 13, 2024 12:00 AM NONVA CONSULT: LOCAL TITLE: COMMUNITY CARE-CONSULT RESULT NOTE STANDARD TITLE: NONVA CONSULT DATE OF NOTE: JUN 13, 2024 ENTRY DATE: JUL 11, 2024@15:39:13 AUTHOR: YUNIEL SANDERS EXP COSIGNER: URGENCY: STATUS: COMPLETED VistA Imaging - Scanned Document SCANNED DOCUMENT SIGNATURE NOT REQUIRED Electronically Filed: 07/11/2024 by: YUNIEL LUIS CNTRL W[facility]N [facility]
--- OUTSIDE RECORDS SUMMARY | 2024-10-17 15:27 | XMS_ITS | Encounter Summary ---
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 Affairs ([place]) Organization Department of [place]) Address [address] [place] [address] Care Team Providers Care Hitcher Name Role Phone GURPREET PEERZ Primary Care Provide r Unavailable Insurance Providers: [...] Harding's Name Patient's Relationship to Policy Harding [facility] PLAN [facility] (WNR) MEDICARE ADVANTAGE [facility] (WNR) Oct 25, 2011 [facility] [id number] PATIENT Selected Encounter This section includes the information on record at [place] for the Encounter. Date/Time Encounter Type Encounter Description Reason Pro vider Source Feb 07, 2024 12:00 AM Outpatient Encounter COMMUNITY CARE [...] 02:00 PM AMBULATORY - REHAB MEDICIN E [facility] Mar 30, 2024 10:00 AM [facility] May 12, 2024 11:30 AM [facility] Jun 05, 2024 08:00 AM [facility] Jun 13, 2024 10:00 AM [facility] Aug 05, 2024 08:00 AM AMBULATORY - [facility]ICINE [facility] Social History: Smoking Status [...] 03, 2023 08:58 AM VA-TOBACCO FORMER USER [facility] Tobacco Use History This section includes a history of the smoking, or tobacco-related health factors, that were collected on or before the date of the Encounter. The data comes from the [place] facility where the Encounter took place. Date/Time Smoking Status/Tobacco Use Comment F acility Jun 03, 2023 08:58 AM VA-TOBACCO QUIT 15 YRS OR MORE [facility] Advance Directives: All historical and current [...] Jun 30, 2019 ADVANCE DIRECTIVE CASSIE POWELL [facility] Encounter Notes: All associated encounter notes This section contains the clinical notes associated to the Encounter. Date/Time Encounter Note(s) Provider Source Feb 07, 2024 12:00 AM NONVA CONSULT: LOCAL TITLE: COMMUNITY CARE-CONSULT RESULT NOTE STANDARD TITLE: NONVA CONSULT DATE OF NOTE: FEB 07, 2024 ENTRY DATE: FEB 22, 2024@12:04:11 AUTHOR: BERNARD CABEZAS MA EXP COSIGNER: URGENCY: STATUS: COMPLETED VistA Imaging - Scanned Document SCANNED DOCUMENT SIGNATURE NOT REQUIRED Electronically Filed: 02/22/2024 by: BERNARD CABEZAS EDITOR IN CHIEF NEWSPAPER BERNARD CABEZAS [place] CNTRL WSN [facility]
--- OUTSIDE RECORDS SUMMARY | 2024-10-17 15:27 | XMS_ITS ---
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 Affairs ([place]) Organization Department of [place] Affairs [place] Address [address] [place] [address] Care Team Providers Care Health Manager Name Role Phone GURPREET PEREZ Primary Care [...] to Policy Harding [facility] PLAN [facility] (WNR) MEDICARE ADVANTAGE [facility] (WNR) Oct 25, 2011 [facility] [id number] PATIENT Selected Encounter This [...] 02:00 PM AMBULATORY - REHAB [facility]ICIN [facility] Mar 30, 2024 10:00 AM AMBULAT[facility] May 12, 2024 11:30 AM AMBULATORY - [facility] Jun 05, 2024 08:00 AM [facility] Jun 13, 2024 10:00 AM AMBULATORY - [facility] Aug 05, 2024 08:00 AM AMBULATORY - MEDICINE [facility] Social History: Smoking Status (Most current) and Tobacco Use (All prior to encounter date) This section includes the most current, and the historical, smoking and tobacco- related health factors from the [place] facility where the Encounter took place. Current Smoking Status This section includes the most current smoking, or tobacco-related health factor, from the [place] facility where the Encounter took place. Date/Time Current Smoking Status Comment Facil ity Jun 03, 2023 08:58 AM VA-TOBACCO FORMER USER [facility] Tobacco Use History This section includes a history of the smoking, or tobacco-related health factors, that were collected on or before the date of the Encounter. The data comes from the [place] facility where the Encounter took place. Date/Time Smoking Status/Tobacco Use Comment F acility Jun 03, 2023 08:58 AM VA-TOBACCO QUIT 15 YRS OR MORE [facility] Advance Directives: All historical and current Section Date Range: From patient's date of to the date document was created. This section includes ALL of a patient's completed or amended [place] Advance and Rescinded Directives. The entries below indicate that a directive exists for the patient, but an actual copy is not included with this document. The data comes from all [place] facilities. Date Advance Directives Provider Source Jul 15, 2023 ADVANCE DIRECTIVE ROGER PEDRAZA Jun 30, 2019 ADVANCE DIRECTIVE CASSIE POWELL [facility] Encounter Notes: All associated encounter notes This section contains the clinical notes associated to the Encounter. Date/Time Encounter Note(s) Provider Source Feb 14, 2024 12:00 AM NONVA CONSULT: LOCAL TITLE: COMMUNITY CARE-CONSULT RESULT NOTE STANDARD TITLE: NONVA CONSULT DATE OF NOTE: FEB 14, 2024 ENTRY DATE: MARCH 01, 2024@07:23:10 AUTHOR: TRE OLIVEIRA EXP COSIGNER: URGENCY: STATUS: COMPLETED VistA Imaging - Scanned Document SCANNED DOCUMENT SIGNATURE NOT REQUIRED Electronically Filed: 03/01/2024 by: TRE MORGAN [facility] Feb 14, 2024 12:00 AM NONVA CONSULT: LOCAL TITLE: COMMUNITY CARE-CONSULT RESULT NOTE STANDARD TITLE: NONVA CONSULT DATE OF NOTE: FEB 14, 2024 ENTRY DATE: APR 06, 2024@09:40:22 AUTHOR: JERRY JIANG EXP COSIGNER: URGENCY: STATUS: COMPLETED VistA Imaging - Scanned Document SCANNED DOCUMENT SIGNATURE NOT REQUIRED Electronically Filed: 04/06/2024 by: JERRY BUNN [facility]
--- OUTSIDE RECORDS SUMMARY | 2024-10-17 15:27 | XMS_ITS | Encounter Summary ---
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 Organization Department [place] Address [address] [place] [address] Care Team Providers Care Patrol Commander Name Role Phone GURPREET PEREZ Primary Care [...] Harding's Name Patient's Relationship to Policy Harding [facility] (WNR) MEDICARE ADVANTAGE [facility] (WNR) Oct 25, 2011 [facility] [id number] FATEMEH GOMEZ PATIENT Selected Encounter This section includes the information on record at [place] for the Encounter. Date/Time Encounter Type Encounter Description Reason Pro vider Source Jan 24, 2024 10:47 AM Outpatient Encounter PRIMARY CARE/MEDICINE IHE Encounter Template Text not used by [place] Plan of Treatment: Future Appointments (+ 6 [...] 05, 2024 08:00 AM AMBULATORY - MEDICINE [facility] February 25, 2024 02:00 PM [facility] Mar 30, 2024 10:00 AM [facility] May 12, 2024 11:30 AM [facility] Jun 05, 2024 08:00 AM AMBULATORY - MEDICINE [facility] Jun 13, 2024 10:00 AM AMBULATORY - REHAB MEDICIN E [facility] Social History: Smoking Status (Most [...] AM [place]-TOBACCO QUIT 15 YRS OR MORE [facility] Advance Directives: All historical and current Section Date Range: From patient's date of to the date document was created. This section includes ALL of a patient's completed or amended [place] Advance and Rescinded Directives. The entries below indicate that a directive exists for the patient, but an actual copy is not included with this document. The data comes from all [place] facilities. Date Advance Directives Provider Source Jul 15, 2023 ADVANCE DIRECTIVE ROGER PEDRAZA Jun 30, 2019 ADVANCE DIRECTIVE CASSIE POWELL [facility] Encounter Notes: All associated encounter notes This section contains the clinical notes associated to the Encounter. Date/Time Encounter Note(s) Provider Source Jan 24, 2024 11:47 AM ADDENDUM: LOCAL TITLE: Addendum STANDARD TITLE: ADDENDUM DATE OF NOTE: JAN 24, 2024@11:47:58 ENTRY DATE: JAN 24, 2024@11:47:58 AUTHOR: ROGER PEDRAZA EXP COSIGNER: URGENCY: STATUS: COMPLETED FIELD ARTILLERY BASIC PUT ATTACHMENT INTO PACT FOLDER /inge/ ROGER MORRIS Signed: 01/24/2024 11:48 Receipt Acknowledged By: 01/25/2024 14:21 /es/ YI BLANCHARD RN REGISTERED NURSE 01/27/2024 09:47 /inge/ MAXIMILIANO KUMARI LPN LPN --- Original Document --- 01/24/24 PRIMARY CARE SECURE MESSAGING: ------Original Message ----- Sent: 01/24/2024 10:35 AM ET From: FATEMEH GOMEZ To: CHRIS,[facility] Subject: General:Past medical records Attachments: Fatemeh Gomez Discharge paperwork.pdf (871.99 KB) I am sending you this report from some of his information that incurred in the last couple of months. As I go through my paperwork I will send to you regarding his condition. /inge/ ROGER MORRIS Signed: 01/24/2024 11:47 ROGER PEDRAZA [facility] Jan 24, 2024 10:47 AM PRIMARY CARE SECUR E MESSAGING: LOCAL TITLE: PRIMARY CARE SECURE MESSAGING STANDARD TITLE: PRIMARY CARE SECURE MESSAGING DATE OF NOTE: JAN 24, 2024@10:47 ENTRY DATE: JAN 24, 2024@11:47:51 AUTHOR: ROGER PEDRAZA COSIGNER: URGENCY: STATUS: COMPLETED PRIMARY CARE SECURE MESSAGING Has ADDENDA ------Original Message ----- Sent: 01/24/2024 10:35 AM ET From: FATEMEH GOMEZ To: [facility]IS[facility] Subject: General:Past medical records Attachments: Fatemeh Gomez Discharge paperwork.pdf (871.99 KB) I am sending you this report from some of his information that incurred in the last couple of months. As I go through my paperwork I will send to you regarding his condition. /inge/ ROGER MORRIS Signed: 01/24/2024 11:47 01/24/2024 ADDENDUM STATUS: COMPLETED FIELD ARTILLERY BASIC PUT ATTACHMENT INTO PACT FOLDER /mini MORRIS Signed: 01/24/2024 11:48 Receipt Acknowledged By: 01/25/2024 14:21 /inge/ YI BLANCHARD RN REGISTERED NURSE 01/27/2024 09:47 /es/ MAXIMILIANO KUMARI LPN LPN 01/27/2024 ADDENDUM STATUS: COMPLETED nothing found in right fax /inge/ MAXIMILIANO KUMARI LPN LPN Signed: 01/27/2024 09:48 01/27/2024 ADDENDUM STATUS: COMPLETED Items found in Right fax. /inge/ MAXIMILIANO KUMARI LPN LPN Signed: 01/27/2024 10:30 ROGER PEDRAZA [facility]
--- OUTSIDE RECORDS SUMMARY | 2024-10-17 15:27 | XMS_ITS | Encounter Summary ---
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 Affairs ([place]) Organization Department [place] Address [address] [place] [address] Care Team Providers Care Haul Driver Name Role Phone GURPREET PEREZ Primary Care [...] Harding's Name Patient's Relationship to Policy Harding [facility] (WNR) MEDICARE ADVANTAGE [facility] (WNR) Oct 25, 2011 [facility] [id number] FATEMEH GOMEZ PATIENT Selected Encounter This section includes the information on record at [place] for the Encounter. Date/Time Encounter Type Encounter Description Reason Pro vider Source Jan 31, 2024 12:00 PM Outpatient Encounter COMMUNITY CARE [...] 05, 2024 08:00 AM AMBULATORY - MEDICINE [facility] February 25, 2024 02:00 PM AMBULATORY - [facility] Mar 30, 2024 10:00 AM AMBULATORY - REHAB MEDICIN E [facility] May 12, 2024 11:30 AM AMBULATORY - [facility]HAB [facility] Jun 05, 2024 08:00 AM AMBULATORY - MEDICINE [facility] Jun 13, 2024 10:00 AM AMBULATORY - REHAB [facility]IC[facility] E [facility] Social History: Smoking Status (Most current) [...] the Encounter. The data comes from the [place] facility where the Encounter took place. Date/Time [...] Jun 30, 2019 ADVANCE DIRECTIVE CASSIE POWELL [facility] Encounter Notes: All associated encounter notes This section contains the clinical notes associated to the Encounter. Date/Time Encounter Note(s) Provider Source Jan 31, 2024 12:00 PM NONVA CONSULT: LOCAL TITLE: COMMUNITY CARE-CONSULT RESULT NOTE STANDARD TITLE: NONVA CONSULT DATE OF NOTE: JAN 31, 2024@12:00 ENTRY DATE: FEB 16, 2024@13:45:04 AUTHOR: YUNIEL SANDERS COSIGNER: URGENCY: STATUS: COMPLETED VistA Imaging - Scanned Document SCANNED DOCUMENT SIGNATURE NOT REQUIRED Electronically Filed: 02/16/2024 by: YUNIEL LUIS [facility]
--- OUTSIDE RECORDS SUMMARY | 2024-10-17 15:27 | XMS_ITS | Encounter Summary ---
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 [place] Organization Department of Veter[place]) Address [address] [place] [address] Care Team Providers Care In Store Marketing Associate Name Role Phone GURPREET PEREZ Primary Care [...] Name Patient's Relationship to Policy Harding [facility] PLAN [facility] (WNR) MEDICARE ADVANTAGE [facility] (WNR) Oct 25, 2011 [facility] [id number] FATEMEH GOMEZ PATIENT Selected Encounter This section includes the information on record at [place] for the Encounter. Date/Time Encounter Type Encounter Description Reason Pro vider Source Apr 17, 2024 12:00 AM Outpatient Encounter COMMUNITY CARE [...] 11:30 AM AMBULATORY [facility] Jun 05, 2024 08:00 AM AMBULATORY - MEDICINE [place] C NTRL W[facility] Jun 13, 2024 10:00 AM AMBULATORY - [facility] Aug 05, 2024 08:00 AM AMBULATORY - MEDICINE [place] C NTRL W[facility]N [facility] Aug 22, 2024 09:30 AM [facility]BULATORY - MEDICINE [facility] Aug 29, 2024 08:00 AM AMBULATORY - MEDICINE [place] C NTRL W[facility] Sep 20, 2024 09:00 AM [facility]ULATORY - MEDICINE [facility] Oct 03, 2024 11:30 AM AMBULATORY - MEDICINE [facility] Social History: Smoking Status (Most current) [...] 2023 08:58 AM [place]-TOBACCO FORMER USER [facility] Tobacco Use History This section includes a history of the smoking, or tobacco-related health factors, that were collected on or before the date of the Encounter. The data comes from the [place] facility where the Encounter took place. Date/Time Smoking Status/Tobacco Use Comment F acility Jun 03, 2023 08:58 AM [place]-TOBACCO QUIT 15 YRS OR MORE [facility] Advance Directives: All historical and [...] 30, 2019 ADVANCE DIRECTIVE CASSIE POWELL [facility] Encounter Notes: All associated encounter notes This section contains the clinical notes associated to the Encounter. Date/Time Encounter Note(s) Provider Source Apr 17, 2024 12:00 AM NONVA CONSULT: LOCAL TITLE: COMMUNITY CARE-CONSULT RESULT NOTE STANDARD TITLE: NONVA CONSULT DATE OF NOTE: APR 17, 2024 ENTRY DATE: MAY 16, 2024@13:02:48 AUTHOR: TRE OLIVEIRA EXP COSIGNER: URGENCY: STATUS: COMPLETED VistA Imaging - Scanned Document SCANNED DOCUMENT SIGNATURE NOT REQUIRED Electronically Filed: 05/16/2024 by: TRE MORGAN [facility]
--- OUTSIDE RECORDS SUMMARY | 2024-10-17 15:27 | XMS_ITS | Encounter Summary ---
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 Affairs ([place]) Organization Department of [place]) Address [address] [place] [address] Care Team Providers Care Director Foundation Name Role Phone GURPREET PEREZ Primary Care [...] Patient's Relationship to Policy Harding [facility] PLAN [facility] (WNR) MEDICARE ADVANTAGE [facility] (WNR) Oct 25, 2011 [facility] [id number] FATEMEH GOMEZ PATIENT Selected Encounter This section includes the information on record at [place] for the Encounter. Date/Time Encounter Type Encounter Description Reason Pro vider Source March 20, 2024 12:00 PM Outpatient Encounter COMMUNITY CARE [...] 20 appointments. The data comes from all [place] treatment facilities. Appointment Date/Time Appointment Type Appointme nt Facility Name Mar 30, 2024 10:00 AM AMBULATORY - [place]ICIN E [place] [facility] May 12, 2024 11:30 AM AMBULATORY - [place]HAB MEDICIN [place] [facility] [facility] Jun 05, 2024 08:00 AM AMBULATORY - [place]ICINE [place] C N[facility]L [facility] Jun 13, 2024 10:00 AM AMBULATORY - REHAB MEDICIN E [place] [facility] [place] [facility] Aug 05, 2024 08:00 AM AMBULATORY - MEDICINE [place] C [facility] [facility] [facility] Aug 22, 2024 09:30 AM AMBULATORY - MEDICINE [facility] [place] Aug 29, 2024 08:00 AM AMBULATORY - MEDICINE [place] C [place] [facility] [facility] Sep 20, 2024 09:00 AM AMBULATORY - MEDICINE [facility] Social History: Smoking Status (Most current) [...] 03, 2023 08:58 AM [place]-TOBACCO FORMER USER [facility] Tobacco Use History This section includes a history of the smoking, or tobacco-related health factors, that were collected on or before the date of the Encounter. The data comes from the [place] facility where the Encounter took place. Date/Time Smoking Status/Tobacco Use Comment F acility Jun 03, 2023 08:58 AM [place]-TOBACCO QUIT 15 YRS OR MORE [facility] Advance Directives: All historical and current [...] Jun 30, 2019 ADVANCE DIRECTIVE CASSIE POWELL [facility] Encounter Notes: All associated encounter notes This section contains the clinical notes associated to the Encounter. Date/Time Encounter Note(s) Provider Source March 20, 2024 12:00 PM NONVA CONSULT: LOCAL TITLE: COMMUNITY CARE-CONSULT RESULT NOTE STANDARD TITLE: NONVA CONSULT DATE OF NOTE: MARCH 20, 2024@12:00 ENTRY DATE: APR 07, 2024@14:49:39 AUTHOR: LIBAN TRIMBLE EXP COSIGNER: URGENCY: STATUS: COMPLETED VistA Imaging - Scanned Document SCANNED DOCUMENT SIGNATURE NOT REQUIRED Electronically Filed: 04/07/2024 by: LIBAN TRIMBLE MEDICAL LEARNING AND DEVELOPMENT ADMINISTRATOR LIBAN TRIMBLE [place] [facility]
--- OUTSIDE RECORDS SUMMARY | 2024-10-17 15:27 | XMS_ITS ---
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 ns Affairs ([place]) Organization Department of [place]a Affairs ([place]) Address [address] [place] [address] Care Team Providers Care Medical Billing Coordinator Name Role Phone GURPREET PEREZ Primary [...] Harding's Name Patient's Relationship to Policy Harding [facility] (WNR) MEDICARE ADVANTAGE [facility] ([facility]NR) Oct 25, 2011 [facility] [id number] FATEMEH GOMEZ PATIENT Selected Encounter This section includes the information on record at [place] for the Encounter. Date/Time Encounter Type Encounter Description Reason Pro vider Source May 08, 2024 01:46 PM Outpatient Encounter PRIMARY CARE/MEDICINE IHE Encounter Template Text not used by [place] Plan of Treatment: Future Appointments (+ 6 [...] 11:30 AM AMBULATORY - [facility] [place] [facility] Jun 05, 2024 08:00 AM AMBULATORY - MEDICINE [place] C NTRL WSTRN [facility] Jun 13, 2024 10:00 AM AMBULATORY - REHAB [facility] Aug 05, 2024 08:00 AM AMBULATORY - MEDICINE [place] C NTRL WSTRN [facility] Aug 22, 2024 09:30 AM AMBULATORY - MEDICINE [facility] Aug 29, 2024 08:00 AM AMBULATORY - MEDICINE [place] C NTRL [facility] Sep 20, 2024 09:00 AM AMBULATORY - MEDICINE [facility] Oct 03, 2024 11:30 AM [facility] Social History: Smoking Status (Most current) and Tobacco Use (All prior to encounter date) This section includes the most current, and the historical, smoking and tobacco- related health factors from the [place] facility where the Encounter took place. Current Smoking Status This section includes the most current smoking, or tobacco-related health factor, from the [place] facility where the Encounter took place. Date/Time Current Smoking Status Comment Facil ity Jun 03, 2023 08:58 AM [place]-TOBACCO FORMER USER [facility] Tobacco Use History This section includes a history of the smoking, or tobacco-related health factors, that were collected on or before the date of the Encounter. The data comes from the [place] facility where the Encounter took place. Date/Time Smoking Status/Tobacco Use Comment F acility Jun 03, 2023 08:58 AM [place]-TOBACCO QUIT 15 YRS OR MORE [facility] Advance Directives: All historical [...] Jun 30, 2019 ADVANCE DIRECTIVE [facility] Encounter Notes: All associated encounter notes This section contains the clinical notes associated to the Encounter. Date/Time Encounter Note(s) Provider Source May 08, 2024 01:46 PM PRIMARY CARE RYANUR E MESSAGING: LOCAL TITLE: PRIMARY CARE SECURE MESSAGING STANDARD TITLE: PRIMARY CARE SECURE MESSAGING DATE OF NOTE: MAY 08, 2024@13:46 ENTRY DATE: MAY 08, 2024@14:46:38 AUTHOR: ROGER PEDRAZA EXP COSIGNER: URGENCY: STATUS: COMPLETED PRIMARY CARE SECURE MESSAGING Has ADDENDA ------Original Message ---- Sent: 05/08/2024 02:27 PM ET From: FATEMEH GOMEZ To: ANN PEREZ RY [facility] Subject: General:Concerns regarding Occupational Therapy discharge I was told that as of the the person doing his therapy will be discharging his services as per recommendation from the MD. I am concerned that is could be an issue for my because he is a fall risk and I have noticed that he still struggles with having the strength to do several tasks. According to [facility] Care they have to release him unless it is medically necessary. I took him to an orthopedic doctor and he said that he needs to continue with doing therapy. My understanding is I need his MD primary care doctor authorize a approval to continue this service through the MD. Please advice. Thank you at advance Maria C Gomez /inge/ ROGER MORRIS Signed: 05/08/2024 14:46 Receipt Acknowledged By: 05/12/2024 09:15 /inge/ MAXIMILIANO KUMARI LPN LPN 05/10/2024 13:27 /inge/ JANINA ROWE RN REGISTERED NURSE 05/10/2024 ADDENDUM STATUS: COMPLETED Please see other alert on 05/08/24. /mini ROWE RN REGISTERED NURSE Signed: 05/10/2024 13:27 ROGER PEDRAZA [facility]
--- OUTSIDE RECORDS SUMMARY | 2024-10-17 15:27 | XMS_ITS ---
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 ns Affairs ([place]) Organization Department of [place] Address [address] [place] [address] Care Team Providers Care Integration Assistant Name Role Phone GURPREET PEREZ Primary Care [...] Harding's Name Patient's Relationship to Policy Harding [facility] (WNR) MEDICARE ADVANTAGE [facility] ([place]) Oct 25, 2011 [facility] [id number] FATEMEH GOMEZ PATIENT Selected Encounter This section includes the information on record at [place] for the Encounter. Date/Time Encounter Type Encounter Description Reason Provider Source May 12, 2024 11:30 AM HEARING AID EXAM BOTH EARS AUDIOLOGY ICD-10-CM Z46.1 Encounter for fitting and adjustment of hearing aid KHUSHBOO GRAY Encounter Template Text not used by [place] Assessments - Encounter Diagnoses This section includes the primary and secondary diagnoses documented for the Encounter. Date/Time Primary/Secondary Diagnosis Diagnosis Name Provider Source May 12, 2024 11:49 AM PRIMARY Encounter for fitting and adjustment of hearing aid WENDY GRAY [facility] May 12, 2024 11:49 AM SECONDARY Sensorineural hearing loss, bilateral WENDY GRAY [facility] Plan of Treatment: Future Appointments (+ 6 months) and Future Tests (+/- 45 days) The Plan of Treatment section includes future care activities for the patient from all [place] [facility] [place]. This section includes future appointments and future [...] 05, 2024 08:00 AM AMBULATORY - [facility] Jun 13, 2024 10:00 AM AMBULATORY - REHAB MEDICIN E [facility] Aug 05, 2024 08:00 AM AMBULATORY - [facility]IC[facility] Aug 22, 2024 09:30 AM AMBULATORY - MEDICINE [facility] Aug 29, 2024 08:00 AM AMBULATORY - MEDICINE [facility] Sep 20, 2024 09:00 AM AMBULATORY - MEDICINE [facility] Oct 03, 2024 11:30 AM AMBULATORY - MEDICINE [facility] Social History: Smoking Status (Most current) and Tobacco Use (All prior to encounter date) This section includes the most current, and the historical, smoking and tobacco- related health factors from the [place] facility where the Encounter took place. Current [...] AM [place]-TOBACCO QUIT 15 YRS OR MORE [facility] Advance Directives: All historical and current Section Date Range: From patient's date of to the date document was created. This section includes ALL of a patient's completed or amended [place] Advance and Rescinded Directives. The entries below [...] Encounter. Date/Time Encounter Note(s) Provider Source May 12, 2024 07:26 AM AUDIOLOGY E & M NOTE: LOCAL TITLE: AUDIOLOGY CLINIC STANDARD TITLE: AUDIOLOGY E & M NOTE DATE OF NOTE: MAY 12, 2024@07:26 ENTRY DATE: MAY 12, 2024@07:26:07 AUTHOR: KHUSHBOO GRAY COSIGNER: URGENCY: STATUS: COMPLETED AUDIOLOGY CLINIC Has ADDENDA Dx CODE: Z46.1-Encounter for Fitting/Adjusting Hearing Aid(s); H90.3- Sensorineural Hearing Loss, Bilateral APPOINTMENT TYPE: Hearing Aid Follow-up HISTORY/BACKGROUND: The patient was seen for a hearing aid follow-up appointment, accompanied by his and a health aid. He was fit with Oticon Real 1 miniRITE Ts on 03/30/24. They report today he is having too much difficulty with the batteries and would like to switch back to rechargeable hearing aids like his previous privately purchased hearing aids. He does not have a pacemaker. Additionally, they report they switched from the power domes to the barth domes and seemed to hear better. The hearing aids were returned for credit. Oticon Intent miniRITE-Rs were selected and ordered in [place] to be used with domes. PLAN/RECOMMENDATION(S): 1. RTC on 06/13/24 at 10AM for a 60 minute HAF. * Patient Education Education provided on the following topics: Hearing aids Education provided to: P, F Response to Education: VU Pham Patient P Family F Significant Other SO Verbalizes Understanding VU Returns Demonstration RD Performs Independently PI Lacks Comprehension LC Refused Education RE Not Applicable NA * /inge/ KHUSHBOO GRAY STAFF MICA LAMINATING MACHINE FEEDER Signed: 05/12/2024 11:49 Receipt Acknowledged By: 05/12/2024 13:33 /inge/ SHERIE MURRIETA LEAD LOTUS NOTES ADMINISTRATOR 05/16/2024 ADDENDUM STATUS: COMPLETED Hearing aids received and certified, upcoming appointment scheduled on 06/13/2024. /inge/ [place] LOW Audiology Health Experienced Truck Driver Signed: 05/16/2024 15:25 KHUSHBOO GRAY [facility] [place] [facility]
--- OUTSIDE RECORDS SUMMARY | 2024-10-17 15:27 | XMS_ITS | Encounter Summary ---
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 Affairs [place]) Organization [place] Address [address] [place] [address] Care Team Providers Care Revenue Stamp Cutter Name Role Phone GURPREET PEREZ Primary Care [...] Policy Harding [facility] PLAN [facility] (WNR) MEDICARE ADVANTAGE [facility] (WNR) Oct 25, 2011 [facility] [id number] FAT[address] GOMEZ PATIENT Selected Encounter This section includes the information on record at [place] for the Encounter. Date/Time Encounter Type Encounter Description Reason Pro vider Source Jan 17, 2024 12:00 AM Outpatient Encounter COMMUNITY [...] 20 appointments. The data comes from all [place] treatment facilities. Appointment Date/Time Appointment Type Appointme nt Facility Name Feb 05, 2024 08:00 AM [facility]ULATORY [facility] MED[facility] February 25, 2024 02:00 PM [facility] Mar 30, 2024 10:00 AM AMBULATORY - REHAB MEDICIN E [facility] May 12, 2024 11:30 AM AMBUL[facility] Jun 05, 2024 08:00 AM AMBULATORY - MEDICINE [facility] Jun 13, 2024 10:00 AM AMBULATORY - REHAB MEDICIN E [facility] Social History: Smoking Status (Most current) and [...] 03, 2023 08:58 AM VA-TOBACCO FORMER USER [facility] Tobacco Use History This section includes a history of the smoking, or tobacco-related health factors, that were collected on or before the date of the Encounter. The data comes from the [place] facility where the Encounter took place. Date/Time Smoking Status/Tobacco Use Comment F acility Jun 03, 2023 08:58 AM VA-TOBACCO QUIT 15 YRS OR MORE [facility] Advance Directives: All historical and current Section Date Range: From patient's date of to the date document was created. This section includes ALL of a patient's completed or amended [place] Advance and Rescinded Directives. The entries below indicate that a directive exists for the patient, but an actual copy is not included with this document. The data comes from all [place] facilities. Date Advance Directives Provider Source Jul 15, 2023 ADVANCE DIRECTIVE ROGER PEDRAZA Jun 30, 2019 ADVANCE DIRECTIVE CASSIE POWELL [facility] Encounter Notes: All associated encounter notes This section contains the clinical notes associated to the Encounter. Date/Time Encounter Note(s) Provider Source Jan 17, 2024 12:00 AM NONVA CONSULT: LOCAL TITLE: COMMUNITY CARE-CONSULT RESULT NOTE STANDARD TITLE: NONVA CONSULT DATE OF NOTE: JAN 17, 2024 ENTRY DATE: FEB 01, 2024@13:41:59 AUTHOR: TRE OLIVEIRA EXP COSIGNER: URGENCY: STATUS: COMPLETED VistA Imaging - Scanned Document SCANNED DOCUMENT SIGNATURE NOT REQUIRED Electronically Filed: 02/01/2024 by: TRE MORGAN [facility] Jan 17, 2024 12:00 AM NONVA CONSULT: LOCAL TITLE: COMMUNITY CARE-CONSULT RESULT NOTE STANDARD TITLE: NONVA CONSULT DATE OF NOTE: JAN 17, 2024 ENTRY DATE: FEB 01, 2024@13:44:26 AUTHOR: TRE OLIVEIRA EXP COSIGNER: URGENCY: STATUS: COMPLETED VistA Imaging - Scanned Document SCANNED DOCUMENT SIGNATURE NOT REQUIRED Electronically Filed: 02/01/2024 by: TRE MORGAN [facility] Jan 17, 2024 12:00 AM NONVA CONSULT: LOCAL TITLE: COMMUNITY CARE-CONSULT RESULT NOTE STANDARD TITLE: NONVA CONSULT DATE OF NOTE: JAN 17, 2024 ENTRY DATE: FEB 01, 2024@13:45:57 AUTHOR: TRE OLIVEIRA EXP COSIGNER: URGENCY: STATUS: COMPLETED VistA Imaging - Scanned Document SCANNED DOCUMENT SIGNATURE NOT REQUIRED Electronically Filed: 02/01/2024 by: TRE MORGAN [facility] Jan 17, 2024 12:00 AM NONVA CONSULT: LOCAL TITLE: COMMUNITY CARE-CONSULT RESULT NOTE STANDARD TITLE: NONVA CONSULT DATE OF NOTE: JAN 17, 2024 ENTRY DATE: MAY 26, 2024@06:03:10 AUTHOR: YUNIEL SANDERS EXP COSIGNER: URGENCY: STATUS: COMPLETED VistA Imaging - Scanned Document SCANNED DOCUMENT SIGNATURE NOT REQUIRED Electronically Filed: 05/26/2024 by: YUNIEL LUISRGlen [facility]
--- OUTSIDE RECORDS SUMMARY | 2024-10-17 15:27 | XMS_ITS | Encounter Summary ---
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 [place] Affairs [place] Organization Department [place] Address [address] [place] [address] Care Team Providers Care Gasateria Attendant Name Role Phone GURPREET PEREZ Primary Care [...] Member ID Insurance Provider's Telephone Number Policy Ahrding's Name Patient's Relationship to Policy Harding [facility] PLAN [facility] (WNR) MEDICARE ADVANTAGE [facility] (WNR) Oct 25, 2011 [facility] [id number] FAT[address] GOMEZ PATIENT Selected Encounter This section includes the information on record at [place] for the Encounter. Date/Time Encounter Type Encounter Description Reason Pro vider Source Apr 14, 2024 12:00 AM Outpatient Encounter COMMUNITY [...] [facility] Jun 05, 2024 08:00 AM AMBULATORY - MEDICINE [place] C NTRL W[facility]N [facility] Jun 13, 2024 10:00 AM [facility]BUL[facility] Aug 05, 2024 08:00 AM AMBULATORY - MEDICINE [place] C NTRL WSTRN [facility] Aug 22, 2024 09:30 AM AMBULATORY - MEDICINE [facility] Aug 29, 2024 08:00 AM AMBULATORY - MEDICINE [place] C NTRL WSTRN [facility] Sep 20, 2024 09:00 AM AMBULATORY - MEDICINE [facility] Oct 03, 2024 11:30 AM AMBULATORY - MEDICINE [facility] Social History: Smoking Status (Most [...] 03, 2023 08:58 AM VA-TOBACCO FORMER USER [facility] Tobacco Use History This section includes a history of the smoking, or tobacco-related health factors, that were collected on or before the date of the Encounter. The data comes from the [place] facility where the Encounter took place. Date/Time Smoking Status/Tobacco Use Comment F acility Jun 03, 2023 08:58 AM [place]-TOBACCO QUIT 15 YRS OR MORE [facility] Advance Directives: All historical and current [...] PEDRAZA Jun 30, 2019 ADVANCE DIRECTIVE SHERRYCASSIE [facility] Encounter Notes: All associated encounter notes This section contains the clinical notes associated to the Encounter. Date/Time Encounter Note(s) Provider Source Apr 14, 2024 12:00 AM NONVA CONSULT: LOCAL TITLE: COMMUNITY CARE-CONSULT RESULT NOTE STANDARD TITLE: NONVA CONSULT DATE OF NOTE: APR 14, 2024 ENTRY DATE: MAY 12, 2024@13:47:10 AUTHOR: YUNIEL SANDERS COSIGNER: URGENCY: STATUS: COMPLETED VistA Imaging - Scanned Document SCANNED DOCUMENT SIGNATURE NOT REQUIRED Electronically Filed: 05/12/2024 by: YUNIEL LUIS [facility]
--- OUTSIDE RECORDS SUMMARY | 2024-10-17 15:27 | XMS_ITS | Encounter Summary ---
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 Affairs ([place]) Organization Department of [place] Address [address] [place] [address] Care Team Providers Care Automotive Manager Name Role Phone GURPREET PEREZ Primary [...] Harding's Name Patient's Relationship to Policy Harding [facility] PLAN [facility] (WNR) MEDICARE ADVANTAGE [facility] (WNR) Oct 25, 2011 [facility] [id number] [address] GOMEZ PATIENT Selected Encounter This section includes the information on record at [place] for the Encounter. Date/Time Encounter Type Encounter Description Reason Pro vider Source Feb 07, 2024 12:00 PM Outpatient Encounter COMMUNITY CARE [...] 02:00 PM AMBULATORY - REHAB MEDICIN E [facility] Mar 30, 2024 10:00 AM [facility] May 12, 2024 11:30 AM [facility] Jun 05, 2024 08:00 AM [facility] Jun 13, 2024 10:00 AM [facility] Aug 05, 2024 08:00 AM AMBULATORY - MEDICINE [facility] Social History: Smoking Status (Most current) [...] 03, 2023 08:58 AM VA-TOBACCO FORMER USER [facility] Tobacco Use History This section includes a history of the smoking, or tobacco-related health factors, that were collected on or before the date of the Encounter. The data comes from the [place] facility where the Encounter took place. Date/Time Smoking Status/Tobacco Use Comment F acility Jun 03, 2023 08:58 AM VA-TOBACCO QUIT 15 YRS OR MORE [facility] Advance Directives: All historical and current [...] Jun 30, 2019 ADVANCE DIRECTIVE CASSIE POWELL [facility] Encounter Notes: All associated encounter notes This section contains the clinical notes associated to the Encounter. Date/Time Encounter Note(s) Provider Source Feb 07, 2024 12:00 PM NONVA CONSULT: LOCAL TITLE: COMMUNITY CARE-CONSULT RESULT NOTE STANDARD TITLE: NONVA CONSULT DATE OF NOTE: FEB 07, 2024@12:00 ENTRY DATE: FEB 22, 2024@12:48:33 AUTHOR: YUNIEL SANDERS COSIGNER: URGENCY: STATUS: COMPLETED VistA Imaging - Scanned Document SCANNED DOCUMENT SIGNATURE NOT REQUIRED Electronically Filed: 02/22/2024 by: YUNIEL LUIS CNTRL [facility]
--- OUTSIDE RECORDS SUMMARY | 2024-10-17 15:27 | XMS_ITS ---
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 ns Affairs [place]) Organization Department of Veter[place] ([place]) Address [address] [place] [address] Care Team Providers Care Supervisor Name Role Phone GURPREET PEREZ Primary [...] Policy Harding [facility] PLAN [facility] (WNR) MEDICARE ADVANTAGE [facility] (WNR) Oct 25, 2011 [facility] [id number] FAT[address] GOMEZ PATIENT Selected Encounter This section includes the information on record at [place] for the Encounter. Date/Time Encounter Type Encounter Description Reason Pro vider Source May 01, 2024 11:05 AM Outpatient Encounter TELEPHONE/GERIATRICS IHE Encounter Template Text not used by [...] AM AMBULATORY - [facility]IC[facility] [place] [facility] Jun 05, 2024 08:00 AM AMBULATORY - MEDICINE [place] C NTRL [facility] Jun 13, 2024 10:00 AM [facility]BULAT[facility] Aug 05, 2024 08:00 AM AMBULATORY - MEDICINE [place] C NTRL WSTRN [facility] Aug 22, 2024 09:30 AM AMBULATORY - MEDICINE [facility] Aug 29, 2024 08:00 AM AMBULATORY - MEDICINE [place] C NTRL [facility] Sep 20, 2024 09:00 AM AMBULATORY - MEDICINE [facility] Oct 03, 2024 11:30 AM AMBULATORY - [facility]ICINE [facility] Social History: Smoking Status (Most current) and [...] 03, 2023 08:58 AM VA-TOBACCO FORMER USER [facility] Tobacco Use History This section includes a history of the smoking, or tobacco-related health factors, that were collected on or before the date of the Encounter. The data comes from the [place] facility where the Encounter took place. Date/Time Smoking Status/Tobacco Use Comment F acility Jun 03, 2023 08:58 AM VA-TOBACCO QUIT 15 YRS OR MORE [facility] Advance Directives: All historical and current [...] Jun 30, 2019 ADVANCE DIRECTIVE CASSIE POWELL [facility] Encounter Notes: All associated encounter notes This section contains the clinical notes associated to the Encounter. Date/Time Encounter Note(s) Provider Source May 01, 2024 11:05 AM SOCIAL WORK NOTE: LOCAL TITLE: PERSONAL CARE SERVICES REVIEW STANDARD TITLE: SOCIAL WORK NOTE DATE OF NOTE: MAY 01, 2024@11:05 ENTRY DATE: MAY 01, 2024@11:05:34 AUTHOR: KEESHA DEAN EXP COSIGNER: URGENCY: STATUS: COMPLETED Personal Care Services Review Type of review: 180 Day Information to complete oversight obtained from: Review of medical record Review of community vendor submitted documentation 's surrogate/caregiver Specify Contact: Maria C Torbit vendor Name: Nia Torbit vendor point of contact Name: Cristiana The care plan has been reviewed. Care rendered as authorized. [place] meets administrative eligibility criteria. [place] meets clinical eligibility criteria. Case Mix Tool: Date Completed: Aug Case Mix Score: G Second range of hours to be used. Plan: Authorization(s) to remain the same Homemaker/Home Health Aide Standardized Episode of Care (SEOC) SEOC duration: 365 days Hours per SEOC duration: 30 hrs/week Date of next review: 09/25/24 /inge/ Keesha Dean RN RN Signed: 05/01/2024 11:07 KEESHA DEAN [facility]
--- OUTSIDE RECORDS SUMMARY | 2024-10-17 15:27 | XMS_ITS ---
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 Organization Department of [place] Address [address] [place] [address] Care Team Providers Care Credit Card Analyst Name Role Phone GURPREET PEREZ Primary Care [...] Harding's Name Patient's Relationship to Policy Harding [facility] PLAN [facility] (WNR) MEDICARE ADVANTAGE [facility] (WNR) Oct 25, 2011 [facility] [id number] FATEM[address] GOMEZ PATIENT Selected Encounter This section includes the information on record at [place] for the Encounter. Date/Time Encounter Type Encounter Description Reason Pro vider Source Jan 05, 2024 01:19 PM Outpatient Encounter ADMIN PAT ACTIVTIES (MASNONCT) [...] 05, 2024 08:00 AM AMBULATORY - MEDICINE [place] C NTRL [facility] February 25, 2024 02:00 PM AMBULATORY - [facility] Mar 30, 2024 10:00 AM AMBULATORY - REHAB MEDICIN [facility] May 12, 2024 11:30 AM AMBULATORY - REHAB MEDICIN E [facility] Jun 05, 2024 08:00 AM AMBULATORY - MEDICINE [place] C [facility] Jun 13, 2024 10:00 AM AMBULATORY - REHAB MEDICIN E [facility] Social History: Smoking Status (Most current) [...] 03, 2023 08:58 AM VA-TOBACCO FORMER USER [facility] Tobacco Use History This section includes a history of the smoking, or tobacco-related health factors, that were collected on or before the date of the Encounter. The data comes from the [place] facility where the Encounter took place. Date/Time Smoking Status/Tobacco Use Comment F acility Jun 03, 2023 08:58 AM [place]-TOBACCO QUIT 15 YRS OR MORE [facility] Advance Directives: All historical and [...] Jun 30, 2019 ADVANCE DIRECTIVE CASSIE [facility]OW[facility]LL [facility] Encounter Notes: All associated encounter notes This section contains the clinical notes associated to the Encounter. Date/Time Encounter Note(s) Provider Source Jan 05, 2024 01:26 PM ADDENDUM: LOCAL TITLE: Addendum STANDARD TITLE: ADDENDUM DATE OF NOTE: JAN 05, 2024@13:26:40 ENTRY DATE: JAN 05, 2024@13:26:41 AUTHOR: CASSIE OLEARY COSIGNER: URGENCY: STATUS: COMPLETED Called Analy and she reports that Maxton's is noticing that is declining cognitive/memory issues. Analy reports that Maxton is having auditory/visual hallucinations and irritability especially in the evenings. Author called 's , Maria C on comm auth, and she reports that Maxton has had memory and behavioral changes that are intermittent. Maxton is scheduled to see his non VA pcp in January and she will discuss with them at that time. Author encouraged Maria C to contact PACT if any needs arise. /es/ RONN MARTINEZ RN-BC REGISTERED NURSE Signed: 01/05/2024 13:36 Receipt Acknowledged By: 01/05/2024 23:55 /es/ GURPREET PEREZ MD PHYSICIAN === --- Original Document --- 01/05/24 CCC: SCHEDULING ADMINISTRATION: Patient Demographics Patient Name: FATEMEH GOMEZ Patient Primary Phone: [phone] Patient Primary Address: [address] [place] [id number] Patient : 1945 Patient Age: 78 Caller/Recipient Relation to Patient: Other If Other Describe Relation to Patient: [employer] Caller Name: ANALY Administrative Administrative Note Reason: Home Health / Mc[facility] Administrative Note Comments: ANALY FROM [employer] REPORTS SHE SAW PATIENT TODAY. SPOUSE STATES IS HAVING VISUAL AND AUDITORY HALLUCINATIONS WITH INCREASED IRRITABILTY. HER CONTACT NUMBER IS [phone]. /es/ ANNE [email or web address] [facility]SA Signed: 01/05/2024 13:19 Receipt Acknowledged By: 01/05/2024 13:25 /inge/ RONN MARTINEZ RN-BC REGISTERED NURSE for YI BLANCHARD * AWAITING SIGNATURE * MAXIMILIANO KUMARI KRISTIN [facility] [place] [facility] Jan 05, 2024 01:19 PM ADMINISTRATIVE NOTE: LOCAL TITLE: CCC: SCHEDULING ADMINISTRATION STANDARD TITLE: ADMINISTRATIVE NOTE DATE OF NOTE: JAN 05, 2024@13:19:50 ENTRY DATE: JAN 05, 2024@13:19:50 AUTHOR: ANNE CASAREZ EXP COSIGNER: URGENCY: STATUS: COMPLETED CCC: SCHEDULING ADMINISTRATION Has ADDENDA Patient Demographics Patient Name: FATEMEH GOMEZ Patient Primary Phone: [phone] Patient Primary Address: [address] [place] [address] Patient : 1945 Patient Age: 78 Caller/Recipient Relation to Patient: Other If Other Describe Relation to Patient: [employer] Caller Name: ANALY Administrative Administrative Note Reason: Home Health / [facility] Administrative Note Comments: ANALY FROM [employer] REPORTS SHE SAW PATIENT TODAY. SPOUSE STATES IS HAVING VISUAL AND AUDITORY HALLUCINATIONS WITH INCREASED IRRITABILTY. HER CONTACT NUMBER IS [phone]. /es/ ANNE ASTUDILLON1 [facility] Signed: 01/05/2024 13:19 Receipt Acknowledged By: 01/05/2024 13:25 /inge/ RONN MARTINEZ RN-JOSE REGISTERED NURSE for YI BLANCHARD 01/10/2024 11:42 /es/ MAXIMILIANO KUMARI LPN LPN 01/05/2024 ADDENDUM STATUS: COMPLETED Called Analy and she reports that 's is noticing that is declining cognitive/memory issues. Analy reports that is having auditory/visual hallucinations and irritability especially in the evenings. Author called 's , Maria C on comm auth, and she reports that has had memory and behavioral changes that are intermittent. is scheduled to see his non VA pcp in January and she will discuss with them at that time. Author encouraged Maria C to contact PACT if any needs arise. /es/ MARCEL MARTINEZN RN-BC REGISTERED NURSE Signed: 01/05/2024 13:36 Receipt Acknowledged By: 01/05/2024 23:55 /es/ GURPREET PEREZ MD PHYSICIAN ANNE CASAREZ [place] [facility]
--- OUTSIDE RECORDS SUMMARY | 2024-10-17 15:27 | XMS_ITS | Encounter Summary ---
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 [place] Organization Department [place] Address [address] [place] [address] Care Team Providers Care Ground Water Pump Installer Name Role Phone GURPREET PEREZ Primary Care [...] Name Patient's Relationship to Policy Harding [facility] PLAN [facility] (WNR) MEDICARE ADVANTAGE [facility] (WNR) Oct 25, 2011 [facility] [id number] FATEM[address] GOMEZ PATIENT Selected Encounter This section includes the information on record at [place] for the Encounter. Date/Time Encounter Type Encounter Description Reason Pro vider Source Feb 01, 2024 12:00 AM Outpatient Encounter COMMUNITY CARE [...] 05, 2024 08:00 AM AMBULAT[facility] 25, 2024 02:00 PM [facility] Mar 30, 2024 10:00 AM AMBULATORY - REHAB MEDICIN E [facility] May 12, 2024 11:30 AM [facility] Jun 05, 2024 08:00 AM AMBULATORY - MEDICINE [facility] Jun 13, 2024 10:00 AM AMBULATORY - REHAB MEDICIN E [facility] Social History: Smoking Status (Most current) [...] 03, 2023 08:58 AM VA-TOBACCO FORMER USER [facility] Tobacco Use History This section includes a history of the smoking, or tobacco-related health factors, that were collected on or before the date of the Encounter. The data comes from the [place] facility where the Encounter took place. Date/Time Smoking Status/Tobacco Use Comment F acility Jun 03, 2023 08:58 AM VA-TOBACCO QUIT 15 YRS OR MORE [facility] Advance Directives: All historical and current [...] Jun 30, 2019 ADVANCE DIRECTIVE CASSIE POWELL [facility] Encounter Notes: All associated encounter notes This section contains the clinical notes associated to the Encounter. Date/Time Encounter Note(s) Provider Source Feb 01, 2024 12:00 AM NONVA CONSULT: LOCAL TITLE: COMMUNITY CARE-CONSULT RESULT NOTE STANDARD TITLE: NONVA CONSULT DATE OF NOTE: FEB 01, 2024 ENTRY DATE: FEB 17, 2024@07:23:46 AUTHOR: TRE OLIVEIRA EXP COSIGNER: URGENCY: STATUS: COMPLETED VistA Imaging - Scanned Document SCANNED DOCUMENT SIGNATURE NOT REQUIRED Electronically Filed: 02/17/2024 by: TRE MORGAN CNTRL WSN [facility]
--- OUTSIDE RECORDS SUMMARY | 2024-10-17 15:27 | XMS_ITS | Encounter Summary ---
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 Affairs [place]) Organization Department [place] Address [address] [place] [address] Care Team Providers Care Developer Trading Systems Name Role Phone GURPREET PEREZ Primary Care [...] [facility] ([facility] Oct 25, 2011 [facility] [id number] FATEM[address] GOMEZ PATIENT Selected Encounter This section includes the information on record at [place] for the Encounter. Date/Time Encounter Type Encounter Description Reason Pro vider Source Dec 29, 2023 12:00 PM Outpatient Encounter COMMUNITY CARE CONSULT [...] 08:00 AM AMBULATORY - [facility] February 25, 2024 02:00 PM [facility] Mar 30, 2024 10:00 AM AMBULATORY - REHAB MEDICIN E [facility] May 12, 2024 11:30 AM AMBUL[facility] Jun 05, 2024 08:00 AM AMBULATORY - MEDICINE [facility] Jun 13, 2024 10:00 AM AMBULATORY - REHAB MEDICIN E [facility] Social History: Smoking Status (Most current) [...] 03, 2023 08:58 AM VA-TOBACCO FORMER USER [facility] Tobacco Use History This section includes a history of the smoking, or tobacco-related health factors, that were collected on or before the date of the Encounter. The data comes from the [place] facility where the Encounter took place. Date/Time Smoking Status/Tobacco Use Comment F acility Jun 03, 2023 08:58 AM VA-TOBACCO QUIT 15 YRS OR MORE [facility] Advance Directives: All historical and current [...] Jun 30, 2019 ADVANCE DIRECTIVE CASSIE POWELL [facility] Encounter Notes: All associated encounter notes This section contains the clinical notes associated to the Encounter. Date/Time Encounter Note(s) Provider Source Dec 29, 2023 12:00 PM NONVA CONSULT: LOCAL TITLE: COMMUNITY CARE-CONSULT RESULT NOTE STANDARD TITLE: NONVA CONSULT DATE OF NOTE: DEC 29, 2023@12:00 ENTRY DATE: JAN 13, 2024@13:40:43 AUTHOR: YUNIEL SANDERS COSIGNER: URGENCY: STATUS: COMPLETED VistA Imaging - Scanned Document SCANNED DOCUMENT SIGNATURE NOT REQUIRED Electronically Filed: 01/13/2024 by: YUNIEL LUIS [facility] Dec 29, 2023 12:00 PM NONVA CONSULT: LOCAL TITLE: COMMUNITY CARE-CONSULT RESULT NOTE STANDARD TITLE: NONVA CONSULT DATE OF NOTE: DEC 29, 2023@12:00 ENTRY DATE: FEB 15, 2024@14:11:23 AUTHOR: YUNIEL SANDERSIGNER: URGENCY: STATUS: COMPLETED VistA Imaging - Scanned Document SCANNED DOCUMENT SIGNATURE NOT REQUIRED Electronically Filed: 02/15/2024 by: YUNIEL LUIS [facility]
--- OUTSIDE RECORDS SUMMARY | 2024-10-17 15:27 | XMS_ITS | Encounter Summary ---
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 Affairs ([place]) Organization Department of [place] Address [address] [place] [address] Care Team Providers Care Conductor Yard Name Role Phone GURPREET PEREZ Primary Care [...] Harding's Name Patient's Relationship to Policy Harding [facility] PLAN [facility] (WNR) MEDICARE ADVANTAGE [facility] (WNR) Oct 25, 2011 [facility] [id number] FATEM[address] GOMEZ PATIENT Selected Encounter This section includes the information on record at [place] for the Encounter. Date/Time Encounter Type Encounter Description Reason Pro vider Source Jun 15, 2024 12:00 AM Outpatient Encounter COMMUNITY CARE [...] 05, 2024 08:00 AM AMBULATORY - MEDICINE [facility] Aug 22, 2024 09:30 AM AMBULATORY - MEDICINE [facility] Aug 29, 2024 08:00 AM AMBULATORY - MEDICINE [facility] Sep 20, 2024 09:00 AM AMBULATORY - MEDICINE [facility] Oct 03, 2024 11:30 AM AMBULATORY - MEDICINE [facility] Social History: Smoking Status (Most current) [...] 2023 08:58 AM VA-TOBACCO FORMER USER [facility] Tobacco Use History This section includes a history of the smoking, or tobacco-related health factors, that were collected on or before the date of the Encounter. The data comes from the [place] facility where the Encounter took place. Date/Time Smoking Status/Tobacco Use Comment F acility Jun 03, 2023 08:58 AM [place]-TOBACCO QUIT 15 YRS OR MORE [facility] Advance Directives: All historical and current Section Date Range: From patient's date of to the date document was created. This section includes ALL of a patient's completed or amended [place] Advance and Rescinded Directives. The entries below indicate that a directive exists for the patient, but an actual copy is not included with this document. The data comes from all [place] facilities. Date Advance Directives Provider Source Jul 15, 2023 ADVANCE DIRECTIVE ROGER PEDRAZA Jun 30, 2019 ADVANCE DIRECTIVE CASSIE POWELL [facility] Encounter Notes: All associated encounter notes This section contains the clinical notes associated to the Encounter. Date/Time Encounter Note(s) Provider Source Jun 15, 2024 12:00 AM NONVA CONSULT: LOCAL TITLE: COMMUNITY CARE-CONSULT RESULT NOTE STANDARD TITLE: NONVA CONSULT DATE OF NOTE: JUN 15, 2024 ENTRY DATE: JUL 11, 2024@15:41:33 AUTHOR: YUNIEL SANDERS EXP COSIGNER: URGENCY: STATUS: COMPLETED VistA Imaging - Scanned Document SCANNED DOCUMENT SIGNATURE NOT REQUIRED Electronically Filed: 07/11/2024 by: YUNIEL LUIS CNTRL WSTRN [facility]
--- OUTSIDE RECORDS SUMMARY | 2024-10-17 15:27 | XMS_ITS | Encounter Summary ---
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 Affairs ([place]) Organization Department of [place] Address [address] [place] [address] Care Team Providers Care C S S Representative Name Role Phone GURPREET PEREZ Primary Care [...] Name Patient's Relationship to Policy Harding [facility]AN [facility] (WNR) MEDICARE ADVANTAGE [facility] (WNR) Oct 25, 2011 [facility] [id number] FATEM[address] GOMEZ PATIENT Selected Encounter This [...] AMBULATORY - [facility] Jun 05, 2024 08:00 AM AMBULATORY - [place]ICINE [place] C NTRL WSTRN [facility] Jun 13, 2024 10:00 AM AMBULATORY - [facility] Aug 05, 2024 08:00 AM AMBULATORY - MEDICINE [place] C NTRL WSTRN [facility] Aug 22, 2024 09:30 AM AMBULATORY - MEDICINE [facility] Aug 29, 2024 08:00 AM AMBULATORY - MEDICINE [place] C NTRL WSTRN [facility] Sep 20, 2024 09:00 AM AMBULATORY - MEDICINE [facility] Oct 03, 2024 11:30 AM AMBULATORY - MEDICINE [facility] Social History: Smoking Status (Most current) and [...] 03, 2023 08:58 AM VA-TOBACCO FORMER USER [facility] Tobacco Use History This section includes a history of the smoking, or tobacco-related health factors, that were collected on or before the date of the Encounter. The data comes from the [place] facility where the Encounter took place. Date/Time Smoking Status/Tobacco Use Comment F acility Jun 03, 2023 08:58 AM [place]-TOBACCO QUIT 15 YRS OR MORE [facility] Advance Directives: All historical and current [...] Jun 30, 2019 ADVANCE DIRECTIVE CASSIE POWELL [facility] Encounter Notes: All associated encounter notes This section contains the clinical notes associated to the Encounter. Date/Time Encounter Note(s) Provider Source Apr 03, 2024 12:00 PM NONVA CONSULT: LOCAL TITLE: COMMUNITY CARE-CONSULT RESULT NOTE STANDARD TITLE: NONVA CONSULT DATE OF NOTE: APR 03, 2024@12:00 ENTRY DATE: MAY 10, 2024@12:58:29 AUTHOR: LIBAN TRIMBLE EXP COSIGNER: URGENCY: STATUS: COMPLETED VistA Imaging - Scanned Document SCANNED DOCUMENT SIGNATURE NOT REQUIRED Electronically Filed: 05/10/2024 by: LIBAN TRIMBLE MEDICAL PRIMER INSERTING MACHINE ADJUSTER LIBAN TRIMBLE [facility]
--- OUTSIDE RECORDS SUMMARY | 2024-10-17 15:27 | XMS_ITS | Encounter Summary ---
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 Affairs [place]) Organization Department of [place]) Address [address] [place] [address] Care Team Providers Care Press Tender Long Goods Name Role Phone GURPREET PEREZ Primary Care [...] Harding's Name Patient's Relationship to Policy Harding [facility] PLAN [facility] (WNR) MEDICARE ADVANTAGE [facility] (WNR) Oct 25, 2011 [facility] [id number] FATEMEH GOMEZ PATIENT Selected Encounter This section includes the information on record at [place] for the Encounter. Date/Time Encounter Type Encounter Description Reason Pro vider Source May 01, 2024 12:00 PM Outpatient Encounter COMMUNITY CARE [...] - [facility] Jun 05, 2024 08:00 AM AMBULATORY - MEDICINE [place] C NTRL WSTRN [facility] Jun 13, 2024 10:00 AM AMBULATORY - [facility] Aug 05, 2024 08:00 AM AMBULATORY - MEDICINE [place] C NTRL WSTRN [facility] Aug 22, 2024 09:30 AM AMBULATORY - MEDICINE [facility] Aug 29, 2024 08:00 AM AMBULATORY - MEDICINE [place] C NTRL WSTRN [facility] Sep 20, 2024 09:00 AM AMBULATORY - MEDICINE [facility] Oct 03, 2024 11:30 AM AMBULATORY - MEDICINE [facility] Social History: Smoking Status (Most [...] AM [place]-TOBACCO QUIT 15 YRS OR MORE [facility] [...] Encounter Note(s) Provider Source May 01, 2024 12:00 PM NONVA CONSULT: LOCAL TITLE: COMMUNITY CARE-CONSULT RESULT NOTE STANDARD TITLE: NONVA CONSULT DATE OF NOTE: MAY 01, 2024@12:00 ENTRY DATE: JUN 05, 2024@15:48:57 AUTHOR: LIBAN TRIMBLE EXP COSIGNER: URGENCY: STATUS: COMPLETED VistA Imaging - Scanned Document SCANNED DOCUMENT SIGNATURE NOT REQUIRED Electronically Filed: 06/05/2024 by: LIBAN TRIMBLE MEDICAL MACHINING SUPERVISOR LIBAN TRIMBLE [facility]
--- OUTSIDE RECORDS SUMMARY | 2024-10-17 15:27 | XMS_ITS | Encounter Summary ---
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 Affairs ([place]) Organization Department of Veter[place] Affairs ([place]) Address [address] [place] [address] Care Team Providers Care Instrumentation Technologist Name [...] to Policy Harding [facility] PLAN [facility] (WNR) MEDICARE ADVANTAGE [facility] (WNR) Oct 25, 2011 [facility] [id number] FATEM[address] GOMEZ PATIENT Selected Encounter This section includes the information on record at [place] for the Encounter. Date/Time Encounter Type Encounter Description Reason Pro vider Source May 15, 2024 12:00 AM Outpatient Encounter COMMUNITY [...] AMBULATORY - MEDICINE [facility] Jun 13, 2024 10:00 AM AMBULATORY - REHAB MEDICIN E [facility] Aug 05, 2024 08:00 AM AMBULATORY - MEDICINE [facility] Aug 22, 2024 09:30 AM [facility] Aug 29, 2024 08:00 AM AMBULATORY - MEDICINE [facility] Sep 20, 2024 09:00 AM AMBULATORY - MEDICINE SPRI [facility] Oct 03, 2024 11:30 AM AMBULATORY [...] 03, 2023 08:58 AM VA-TOBACCO FORMER USER [facility] Tobacco Use History This section includes a history of the smoking, or tobacco-related health factors, that were collected on or before the date of the Encounter. The data comes from the [place] facility where the Encounter took place. Date/Time Smoking Status/Tobacco Use Comment F acility Jun 03, 2023 08:58 AM VA-TOBACCO QUIT 15 YRS OR MORE [facility] Advance Directives: All historical and current [...] Jun 30, 2019 ADVANCE DIRECTIVE CASSIE POWELL [facility] Encounter Notes: All associated encounter notes This section contains the clinical notes associated to the Encounter. Date/Time Encounter Note(s) Provider Source May 15, 2024 12:00 AM NONVA CONSULT: LOCAL TITLE: COMMUNITY CARE-CONSULT RESULT NOTE STANDARD TITLE: NONVA CONSULT DATE OF NOTE: MAY 15, 2024 ENTRY DATE: JUN 09, 2024@14:32:48 AUTHOR: YUNIEL SANDERS EXP COSIGNER: URGENCY: STATUS: COMPLETED VistA Imaging - Scanned Document SCANNED DOCUMENT SIGNATURE NOT REQUIRED Electronically Filed: 06/09/2024 by: YUNIEL LUIS [place] CNTL WSN [facility] May 15, 2024 12:00 AM NONVA CONSULT: LOCAL TITLE: COMMUNITY CARE-CONSULT RESULT NOTE STANDARD TITLE: NONVA CONSULT DATE OF NOTE: MAY 15, 2024 ENTRY DATE: JUN 12, 2024@07:49:24 AUTHOR: TRE OLIVEIRA EXP COSIGNER: URGENCY: STATUS: COMPLETED VistA Imaging - Scanned Document SCANNED DOCUMENT SIGNATURE NOT REQUIRED Electronically Filed: 06/12/2024 by: TRE MORGAN CNTL WSN [facility] May 15, 2024 12:00 AM NONVA CONSULT: LOCAL TITLE: COMMUNITY CARE-CONSULT RESULT NOTE STANDARD TITLE: NONVA CONSULT DATE OF NOTE: MAY 15, 2024 ENTRY DATE: JUN 12, 2024@07:50:39 AUTHOR: TRE OLIVEIRA EXP COSIGNER: URGENCY: STATUS: COMPLETED VistA Imaging - Scanned Document SCANNED DOCUMENT SIGNATURE NOT REQUIRED Electronically Filed: 06/12/2024 by: TRE MORGAN CNTRL WSN [facility]
--- OUTSIDE RECORDS SUMMARY | 2024-10-17 15:27 | XMS_ITS ---
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 Affairs ([place]) Organization Department of [place] Affairs [place]) Address [address] [place] [address] Care Team Providers Care Pmo Manager Name Role Phone GURPREET PEREZ Primary [...] Harding's Name Patient's Relationship to Policy Harding [facility] PLAN [facility] (WNR) MEDICARE ADVANTAGE [facility] (WNR) Oct 25, 2011 [facility] [id number] FATEM[address] GOMEZ PATIENT Selected Encounter This [...] 10:00 AM AMBULAT[facility] May 12, 2024 11:30 AM AMBULATORY - [facility] Jun 05, 2024 08:00 AM AMBULATORY - MEDICINE [facility] Jun 13, 2024 10:00 AM AMBULATORY - [facility]AB [facility]IC[facility] Aug 05, 2024 08:00 AM AMBULATORY - MEDICINE [facility] Aug 22, 2024 09:30 AM AMBULATORY - [facility]ICINE [facility] Aug 29, 2024 08:00 AM AMBULATORY - MEDICINE [facility] Social History: Smoking Status (Most [...] 03, 2023 08:58 AM VA-TOBACCO FORMER USER [facility] Tobacco Use History This section includes a history of the smoking, or tobacco-related health factors, that were collected on or before the date of the Encounter. The data comes from the [place] facility where the Encounter took place. Date/Time Smoking Status/Tobacco Use Comment F acility Jun 03, 2023 08:58 AM [place]-TOBACCO QUIT 15 YRS OR MORE [facility] Advance Directives: All historical and current Section [...] Jun 30, 2019 ADVANCE DIRECTIVE CASSIE POWELL [facility] Encounter Notes: All associated encounter notes This section contains the clinical notes associated to the Encounter. Date/Time Encounter Note(s) Provider Source March 06, 2024 12:00 AM NONVA CONSULT: LOCAL TITLE: COMMUNITY CARE-CONSULT RESULT NOTE STANDARD TITLE: NONVA CONSULT DATE OF NOTE: MARCH 06, 2024 ENTRY DATE: APR 05, 2024@05:36:48 AUTHOR: BERNARD CABEZAS [place] EXP COSIGNER: URGENCY: STATUS: COMPLETED VistA Imaging - Scanned Document SCANNED DOCUMENT SIGNATURE NOT REQUIRED Electronically Filed: 04/05/2024 by: BERNARD CABEZAS EXTRUSION DIE TEMPLATE MAKER BERNARD CABEZAS [facility]
--- OUTSIDE RECORDS SUMMARY | 2024-10-17 15:27 | XMS_ITS | Encounter Summary ---
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 Affairs ([place] Organization Department of [place]) Address [address] [place] [address] Care Team Providers Care Associate Financial Planner Name Role Phone GURPREET PEREZ Primary [...] Name Patient's Relationship to Policy Harding [facility] PLAN [facility] (WNR) MEDICARE ADVANTAGE [facility] (WNR) Oct 25, 2011 [facility] [id number] FATEMEH GOMEZ PATIENT Selected Encounter This section includes the information on record at [place] for the Encounter. Date/Time Encounter Type Encounter Description Reason Pro vider Source May 29, 2024 12:00 AM Outpatient Encounter COMMUNITY CARE [...] 20 appointments. The data comes from all [place] treatment facilities. Appointment Date/Time Appointment Type Appointme nt Facility Name Jun 05, 2024 08:00 AM AMBULATORY - MEDICINE [facility] Jun 13, 2024 10:00 AM AMBULATORY - REHAB MEDICIN E [facility] Aug 05, 2024 08:00 AM AMBULATORY - MEDICINE [facility] Aug 22, 2024 09:30 AM [facility] Aug 29, 2024 08:00 AM AMBULATORY - MEDICINE [facility] Sep 20, 2024 09:00 AM AMBULATORY - MEDICINE SPRI [facility] Oct 03, 2024 11:30 AM AMBULATORY - MEDICINE [facility] Social History: Smoking Status (Most current) and Tobacco Use (All prior to encounter date) This section includes the most current, and the historical, smoking and tobacco- related health factors from the [place] facility where the Encounter took place. Current Smoking Status This section includes the most current smoking, or tobacco-related health factor, from the [place] facility where the Encounter took place. Date/Time Current Smoking Status Comment Facil ity Jun 03, 2023 08:58 AM VA-TOBACCO FORMER USER [facility] Tobacco Use History This section includes a history of the smoking, or tobacco-related health factors, that were collected on or before the date of the Encounter. The data comes from the [place] facility where the Encounter took place. Date/Time Smoking Status/Tobacco Use Comment F acility Jun 03, 2023 08:58 AM VA-TOBACCO QUIT 15 YRS OR MORE [facility] Advance Directives: All historical and current Section Date Range: From patient's date of to the date document was created. This section includes ALL of a patient's completed or amended [place] Advance and Rescinded Directives. The entries below indicate that a directive exists for the patient, but an actual copy is not included with this document. The data comes from all [place] facilities. Date Advance Directives Provider Source Jul 15, 2023 ADVANCE DIRECTIVE ROGER PEDRAZA Jun 30, 2019 ADVANCE DIRECTIVE CASSIE POWELL [facility] Encounter Notes: All associated encounter notes This section contains the clinical notes associated to the Encounter. Date/Time Encounter Note(s) Provider Source May 29, 2024 12:00 AM NONVA CONSULT: LOCAL TITLE: COMMUNITY CARE-CONSULT RESULT NOTE STANDARD TITLE: NONVA CONSULT DATE OF NOTE: MAY 29, 2024 ENTRY DATE: JUL 03, 2024@14:33:31 AUTHOR: WALT BAINS EXP COSIGNER: URGENCY: STATUS: COMPLETED VistA Imaging - Scanned Document SCANNED DOCUMENT SIGNATURE NOT REQUIRED Electronically Filed: 07/03/2024 by: WALT BAINS LICENSED PRACTICAL NURSE WALT BAINS CNT WSN [facility] May 29, 2024 12:00 AM NONVA CONSULT: LOCAL TITLE: COMMUNITY CARE-CONSULT RESULT NOTE STANDARD TITLE: NONVA CONSULT DATE OF NOTE: MAY 29, 2024 ENTRY DATE: JUL 03, 2024@14:37:29 AUTHOR: WALT BAINS EXP COSIGNER: URGENCY: STATUS: COMPLETED VistA Imaging - Scanned Document SCANNED DOCUMENT SIGNATURE NOT REQUIRED Electronically Filed: 07/03/2024 by: WALT BAINS LICENSED PRACTICAL NURSE WALT BAINS CNTL WSTRN [facility] May 29, 2024 12:00 AM NONVA CONSULT: LOCAL TITLE: COMMUNITY CARE-CONSULT RESULT NOTE STANDARD TITLE: NONVA CONSULT DATE OF NOTE: MAY 29, 2024 ENTRY DATE: JUL 03, 2024@14:45:23 AUTHOR: WALT BAINS EXP COSIGNER: URGENCY: STATUS: COMPLETED VistA Imaging - Scanned Document SCANNED DOCUMENT SIGNATURE NOT REQUIRED Electronically Filed: 07/03/2024 by: WALT BAINS LICENSED PRACTICAL NURSE WALT BAINS [facility]
--- OUTSIDE RECORDS SUMMARY | 2024-10-17 15:27 | XMS_ITS ---
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 Affairs [place] Organization Department [place] Address [address] [place] [address] Care Team Providers Care Outreach Director Name Role Phone GURPREET PEREZ Primary Care [...] Policy Harding [facility] PLAN [facility] (WNR) MEDICARE ADVANTAGE [facility] (WNR) Oct 25, 2011 [facility] [id number] GAMAL GOMEZ PATIENT Selected Encounter This section includes the information on record at [place] for the Encounter. Date/Time Encounter Type Encounter Description Reason Pro vider Source Jun 05, 2024 10:00 AM Outpatient Encounter PRIMARY CARE/MEDICINE IHE Encounter Template Text not used by [place] Plan of Treatment: Future Appointments (+ 6 [...] 10:00 AM AMBULATORY - [facility] Aug 05, 2024 08:00 AM AMBULATORY - [place]ICINE [place] C NTRL W[facility] Aug 22, 2024 09:30 AM AMBULATORY - MEDICINE SPRI [facility] Aug 29, 2024 08:00 AM AMBULATORY - MEDICINE [place] C NTRL WSTRN [facility] Sep 20, 2024 09:00 AM AMBULATORY - MEDICINE SPRI [facility] Oct 03, 2024 11:30 AM AMBULATORY - MEDICINE [facility] N[facility]L [facility] Social History: Smoking Status (Most current) [...] 03, 2023 08:58 AM [place]-TOBACCO FORMER USER [facility] Tobacco Use History This section includes a history of the smoking, or tobacco-related health factors, that were collected on or before the date of the Encounter. The data comes from the [place] facility where the Encounter took place. Date/Time Smoking Status/Tobacco Use Comment F acility Jun 03, 2023 08:58 AM [place]-TOBACCO QUIT 15 YRS OR MORE [facility] Advance Directives: All historical and current [...] Jun 30, 2019 ADVANCE DIRECTIVE CASSIE POWELL [facility] Encounter Notes: All associated encounter notes This section contains the clinical notes associated to the Encounter. Date/Time Encounter Note(s) Provider Source Jun 05, 2024 10:00 AM PRIMARY CARE SECUR E MESSAGING: LOCAL TITLE: PRIMARY CARE SECURE MESSAGING STANDARD TITLE: PRIMARY CARE SECURE MESSAGING DATE OF NOTE: JUN 05, 2024@10:00 ENTRY DATE: JUN 05, 2024@11:00:56 AUTHOR: ROGER PEDRAZA COSIGNER: URGENCY: STATUS: COMPLETED PRIMARY CARE SECURE MESSAGING Has ADDENDA ------Original Message ----- Sent: 06/05/2024 10:19 AM ET From: GAMAL GOMEZ To: CHRIS,O_[facility]IM [facility] Subject: General:latex gloves I am not sure who to ask but I was wondering if the [place] cover the latex gloves for cleaning up my Gamal. If so, I would need size medium. Maria C Gomez /inge/ ROGER MORRIS Signed: 06/05/2024 11:00 Receipt Acknowledged By: 06/06/2024 09:20 /inge/ MAXIMILIANO KUMARI LPN LPN 06/11/2024 17:07 /inge/ MARCEL BORREGON,RN-BC REGISTERED NURSE (RN) for JANINA LEESolisSONIASerina 06/06/2024 ADDENDUM STATUS: COMPLETED [place] spouse contacted - on comm auth - and she is requesting gloves for his care, vinyl is good, medium. /inge/ MAXIMILIANO KUMARI LPN LPN Signed: 06/06/2024 09:36 ROGER PEDRAZA [facility]L [facility]
--- OUTSIDE RECORDS SUMMARY | 2024-10-17 15:27 | XMS_ITS | Encounter Summary ---
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 ns Affairs ([place]) Organization Department [place] Address [address] [place] [address] Care Team Providers Care Data Miner Name Role Phone GURPREET PEREZ Primary Care [...] Name Patient's Relationship to Policy Harding [facility] PLAN [facility] (WNR) MEDICARE ADVANTAGE [facility] (WNR) Oct 25, 2011 [facility] [id number]OME[address] PATIENT Selected Encounter This section includes the information on record at [place] for the Encounter. Date/Time Encounter Type Encounter Description Reason Pro vider Source Apr 16, 2024 12:00 AM Outpatient Encounter COMMUNITY [...] [facility]UL[facility] Jun 05, 2024 08:00 AM AMBULATORY - MEDICINE AL C NTRL WSTRN [facility] Jun 13, 2024 10:00 AM [facility] Aug 05, 2024 08:00 AM AMBULATORY - MEDICINE AL C NTRL WSTRN [facility] Aug 22, 2024 09:30 AM AMBULATORY - MEDICINE SPR[facility] Aug 29, 2024 08:00 AM AMBULATORY - MEDICINE AL C NTRL WSTRN [facility] Sep 20, 2024 09:00 AM AMBULATORY - MEDICINE SPRI [facility] Oct 03, 2024 11:30 AM AMBULATORY - MEDICINE [facility] Social History: Smoking Status (Most [...] 03, 2023 08:58 AM VA-TOBACCO FORMER USER [facility] Tobacco Use History This section includes a history of the smoking, or tobacco-related health factors, that were collected on or before the date of the Encounter. The data comes from the [place] facility where the Encounter took place. Date/Time Smoking Status/Tobacco Use Comment F acility Jun 03, 2023 08:58 AM [place]-TOBACCO QUIT 15 YRS OR MORE [facility] Advance Directives: All historical and [...] ROGER PEDRAZA Jun 30, 2019 ADVANCE DIRECTIVE DEOYECENIACASSIE [facility] Encounter Notes: All associated encounter notes This section contains the clinical notes associated to the Encounter. Date/Time Encounter Note(s) Provider Source Apr 16, 2024 12:00 AM NONVA CONSULT: LOCAL TITLE: COMMUNITY CARE-CONSULT RESULT NOTE STANDARD TITLE: NONVA CONSULT DATE OF NOTE: APR 16, 2024 ENTRY DATE: MAY 12, 2024@13:49:39 AUTHOR: YUNIEL SANDERS COSIGNER: URGENCY: STATUS: COMPLETED VistA Imaging - Scanned Document SCANNED DOCUMENT SIGNATURE NOT REQUIRED Electronically Filed: 05/12/2024 by: YUNIEL LUIS [facility]
--- OUTSIDE RECORDS SUMMARY | 2024-10-17 15:27 | XMS_ITS ---
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 Affairs ([place]) Organization Department of Vetera [place] Affairs [place]) Address [address] [place] [address] Care Team Providers Care Propellant Charge Zone Assembler Name Role Phone GURPREET PEREZ Primary [...] Harding's Name Patient's Relationship to Policy Harding [facility] PLAN [facility] (WNR) MEDICARE ADVANTAGE [facility] (WNR) Oct 25, 2011 [facility] [id number] PATIENT Selected Encounter This section includes the information on record at [place] for the Encounter. Date/Time Encounter Type Encounter [...] 20 appointments. The data comes from all [place] treatment facilities. Appointment Date/Time Appointment Type Appointme nt Facility Name May 12, 2024 11:30 AM AMBULAT[facility] Jun 05, 2024 08:00 AM AMBULATORY - MEDICINE DC C NTRL WSTRN [facility] Jun 13, 2024 10:00 AM AMBULATORY - [facility] Aug 05, 2024 08:00 AM AMBULATORY - MEDICINE DC C NTRL WSTRN [facility] Aug 22, 2024 09:30 AM AMBULATORY - MEDICINE SPRI [facility] Aug 29, 2024 08:00 AM AMBULATORY - MEDICINE DC C NTRL WSTRN [facility] Sep 20, 2024 09:00 AM AMBULATORY - MEDICINE SPRI [facility] Oct 03, 2024 11:30 AM AMBULATORY - MEDICINE [facility] Social History: Smoking Status (Most current) and Tobacco Use (All prior to encounter date) This section includes the most current, and the historical, smoking and tobacco- related health factors from the [place] facility where the Encounter took place. Current Smoking Status This section includes the most current smoking, or tobacco-related health factor, from the [place] facility where the Encounter took place. Date/Time Current Smoking Status Comment Facil ity Jun 03, 2023 08:58 AM VA-TOBACCO FORMER USER [facility] Tobacco Use History This section includes a history of the smoking, or tobacco-related health factors, that were collected on or before the date of the Encounter. The data comes from the [place] facility where the Encounter took place. Date/Time Smoking Status/Tobacco Use Comment F acility Jun 03, 2023 08:58 AM [place]-TOBACCO QUIT 15 YRS OR MORE [facility] Advance Directives: All historical and current Section Date Range: From patient's date of to the date document was created. This section includes ALL of a patient's completed or amended [place] Advance and Rescinded Directives. The entries below indicate that a directive exists for the patient, but an actual copy is not included with this document. The data comes from all [place] facilities. Date Advance Directives Provider Source Jul 15, 2023 ADVANCE DIRECTIVE ROGER PEDRAZA Jun 30, 2019 ADVANCE DIRECTIVE CASSIE POWELL [facility] Encounter Notes: All associated encounter notes This section contains the clinical notes associated to the Encounter. Date/Time Encounter Note(s) Provider Source Apr 24, 2024 12:00 PM NONVA CONSULT: LOCAL TITLE: COMMUNITY CARE-CONSULT RESULT NOTE STANDARD TITLE: NONVA CONSULT DATE OF NOTE: APR 24, 2024@12:00 ENTRY DATE: MAY 18, 2024@08:22:24 AUTHOR: LIBAN TRIMBLE EXP COSIGNER: URGENCY: STATUS: COMPLETED VistA Imaging - Scanned Document SCANNED DOCUMENT SIGNATURE NOT REQUIRED Electronically Filed: 05/18/2024 by: LIBAN TRIMBLE MEDICAL TEST DESKMAN LIBAN TRIMBLE [facility]
--- OUTSIDE RECORDS SUMMARY | 2024-10-17 15:27 | XMS_ITS | Encounter Summary ---
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 Affairs ([place]) Organization Department [place] Address [address] [place] [address] Care Team Providers Care Resin Painter Name Role Phone GURPREET PEREZ Primary Care [...] [facility] PLAN [facility] (WNR) MEDICARE ADVANTAGE [facility] (WNR) Oct 25, 2011 [facility] [id number] PATIENT Selected Encounter This section includes the information on record at [place] for the Encounter. Date/Time Encounter Type Encounter Description Reason Pro vider Source February 28, 2024 12:00 PM Outpatient Encounter COMMUNITY CARE [...] 20 appointments. The data comes from all [place] treatment facilities. Appointment Date/Time Appointment Type Appointme nt Facility Name Mar 30, 2024 10:00 AM [facility]ULAT[facility] May 12, 2024 11:30 AM AMBULATORY - REHAB MEDICIN E [facility] Jun 05, 2024 08:00 AM AMBULATORY - MEDICINE [facility] N[facility]ENTERTRN [facility] Jun 13, 2024 10:00 AM AMBULATORY - REHAB MEDICIN E [facility] TRN [facility]USED[facility] Aug 05, 2024 08:00 AM AMBULATORY - MEDICINE [facility] N[facility]N [facility] Aug 22, 2024 09:30 AM AMBULATORY - [facility] Aug 29, 2024 08:00 AM AMBULATORY - MEDICINE [facility] Social History: Smoking Status (Most current) [...] 03, 2023 08:58 AM VA-TOBACCO FORMER USER [facility] Tobacco Use History This section includes a history of the smoking, or tobacco-related health factors, that were collected on or before the date of the Encounter. The data comes from the [place] facility where the Encounter took place. Date/Time Smoking Status/Tobacco Use Comment F acility Jun 03, 2023 08:58 AM [place]-TOBACCO QUIT 15 YRS OR MORE [facility] Advance Directives: All historical and [...] Jun 30, 2019 ADVANCE DIRECTIVE CASSIE POWELL [facility] Encounter Notes: All associated encounter notes This section contains the clinical notes associated to the Encounter. Date/Time Encounter Note(s) Provider Source February 28, 2024 12:00 PM NONVA CONSULT: LOCAL TITLE: COMMUNITY CARE-CONSULT RESULT NOTE STANDARD TITLE: NONVA CONSULT DATE OF NOTE: FEBRUARY 28, 2024@12:00 ENTRY DATE: MARCH 24, 2024@13:14:10 AUTHOR: LIBAN TRIMBLE EXP COSIGNER: URGENCY: STATUS: COMPLETED VistA Imaging - Scanned Document SCANNED DOCUMENT SIGNATURE NOT REQUIRED Electronically Filed: 03/24/2024 by: LIBAN TRIMBLE MEDICAL REPORTING DEVELOPER LIBAN TRIMBLE [facility]
--- OUTSIDE RECORDS SUMMARY | 2024-10-17 15:27 | XMS_ITS | Encounter Summary ---
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 Affairs ([place]) Organization Department of Vetera ns Affairs ([place]) Address [address] [place] [address] Care Team Providers Care Ic Designer Custom Name Role Phone GURPREET PEREZ Primary Care [...] Harding's Name Patient's Relationship to Policy Harding [facility] PLAN [facility] (WNR) MEDICARE ADVANTAGE [facility] (WNR) Oct 25, 2011 [facility] [id number] PATIENT Selected Encounter This section includes the information on record at [place] for the Encounter. Date/Time Encounter Type Encounter Description Reason Pro vider Source Jan 03, 2024 12:00 PM Outpatient Encounter COMMUNITY [...] 05, 2024 08:00 AM AMBULATORY - [facility]IC[facility] February 25, 2024 02:00 PM AM[facility] Mar 30, 2024 10:00 AM AMBULATORY - REHAB MEDICIN E [facility] May 12, 2024 11:30 AM AM[facility]UL[facility] Jun 05, 2024 08:00 AM AMBULATORY - MEDICINE [facility] Jun 13, 2024 10:00 AM AMBULATORY - REHAB MEDICIN E [facility] Social History: Smoking Status (Most current) [...] 03, 2023 08:58 AM VA-TOBACCO FORMER USER [facility] Tobacco Use History This section includes a history of the smoking, or tobacco-related health factors, that were collected on or before the date of the Encounter. The data comes from the [place] facility where the Encounter took place. Date/Time Smoking Status/Tobacco Use Comment F acility Jun 03, 2023 08:58 AM VA-TOBACCO QUIT 15 YRS OR MORE [facility] Advance Directives: All historical and current [...] Jun 30, 2019 ADVANCE DIRECTIVE CASSIE POWELL [facility] Encounter Notes: All associated encounter notes This section contains the clinical notes associated to the Encounter. Date/Time Encounter Note(s) Provider Source Jan 03, 2024 12:00 PM NONVA CONSULT: LOCAL TITLE: COMMUNITY CARE-CONSULT RESULT NOTE STANDARD TITLE: NONVA CONSULT DATE OF NOTE: JAN 03, 2024@12:00 ENTRY DATE: JAN 18, 2024@10:00:22 AUTHOR: YUNIEL SANDERS COSIGNER: URGENCY: STATUS: COMPLETED VistA Imaging - Scanned Document SCANNED DOCUMENT SIGNATURE NOT REQUIRED Electronically Filed: 01/18/2024 by: YUNIEL LUIS CNTRL [facility]
--- OUTSIDE RECORDS SUMMARY | 2024-10-17 15:27 | XMS_ITS | Encounter Summary ---
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 Affairs ([place]) Organization Department of [place] Address [address] [place] [address] Care Team Providers Care Senior Management Consultant Name Role Phone GURPREET PEREZ Primary [...] Patient's Relationship to Policy Harding [facility] PLAN [facility] (WNR) MEDICARE ADVANTAGE [facility] (WNR) Oct 25, 2011 [facility] [id number]Z PATIENT Selected Encounter This [...] AM AMBULATORY - [facility]IC[facility] May 12, 2024 11:30 AM AMBULATORY - [facility]HAB MEDIC[facility]TR[facility]ALK[facility]TR[facility] Jun 05, 2024 08:00 AM AMBULATORY - MEDICINE [facility] NTRWALK[facility]ENTERTRN [facility] Jun 13, 2024 10:00 AM AMBULATORY - REHAB MEDICIN E [facility] SAULTRL TRN [facility] Aug 05, 2024 08:00 AM AMBULATORY - MEDICINE [facility] NTRCRE[facility]ERN [facility] Aug 22, 2024 09:30 AM AMBULATORY - [facility]ICINE [facility] Aug 29, 2024 08:00 AM AMBULATORY - MEDICINE [facility] Social History: Smoking Status (Most current) and [...] AM [place]-TOBACCO QUIT 15 YRS OR MORE [facility] Jun 30, 2019 ADVANCE DIRECTIVE CASSIE POWELL [facility] Encounter Notes: All associated encounter notes This section contains the clinical notes associated to the Encounter. Date/Time Encounter Note(s) Provider Source February 28, 2024 12:00 PM NONVA CONSULT: LOCAL TITLE: COMMUNITY CARE-CONSULT RESULT NOTE STANDARD TITLE: NONVA CONSULT DATE OF NOTE: FEBRUARY 28, 2024@12:00 ENTRY DATE: MARCH 24, 2024@13:22:34 AUTHOR: LIBAN TRIMBLE EXP COSIGNER: URGENCY: STATUS: COMPLETED VistA Imaging - Scanned Document SCANNED DOCUMENT SIGNATURE NOT REQUIRED Electronically Filed: 03/24/2024 by: LIBAN TRIMBLE MEDICAL BLADE CHANGER LIBAN TRIMBLE [facility]
--- OUTSIDE RECORDS SUMMARY | 2024-10-17 15:27 | XMS_ITS | Encounter Summary ---
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 Affairs [place] Organization Department of [place]a [place] Address [address] [place] [address] Care Team Providers Care Fur Grader Name Role Phone GURPREET PEERZ Primary Care [...] Harding's Name Patient's Relationship to Policy Harding [facility] MEDICARE ADVANTAGE [facility] (WNR) Oct 25, 2011 [facility] [id number]Z PATIENT Selected Encounter This section includes the information on record at [place] for the Encounter. Date/Time Encounter Type Encounter Description Reason Provider Source Mar 30, 2024 10:00 AM CONFORMITY EVALUATION AUDIOLOGY ICD-10-CM Z46.1 Encounter for fitting and adjustment of hearing aid GIL SANDY Encounter Template Text not used by [place] Assessments - Encounter Diagnoses This section includes the primary and secondary diagnoses documented for the Encounter. Date/Time Primary/Secondary Diagnosis Diagnosis Name Provider Source Mar 30, 2024 10:56 AM PRIMARY Encounter for fitting and adjustment of hearing aid GIL SANDY [facility] Mar 30, 2024 10:56 AM SECONDARY Sensorineural hearing loss, bilateral CAMINITI,GIL E [facility] Plan of Treatment: Future Appointments (+ 6 months) and Future Tests (+/- 45 days) The Plan of Treatment section includes future care activities for the patient from all [place] [facility]. This section includes future appointments and future orders which are active, pending or scheduled. Future Appointments This section includes appointments that were scheduled to occur 6 months from the date of the Encounter, up to a maximum of 20 appointments. The data comes from all [place] treatment facilities. Appointment Date/Time Appointment Type Appointme nt Facility Name May 12, 2024 11:30 AM AMBULATORY - REHAB MEDICIN E [facility] Jun 05, 2024 08:00 AM AMBULATORY - MEDICINE [facility] Jun 13, 2024 10:00 AM AMBULATORY - [facility] Aug 05, 2024 08:00 AM AMBULATORY - MEDICINE [facility] Aug 22, 2024 09:30 AM AMBULATORY - MEDICINE [facility] Aug 29, 2024 08:00 AM AMBULATORY - MEDICINE [facility] Sep 20, 2024 09:00 AM AMBULATORY - MEDICINE [facility] Social History: Smoking Status (Most current) and Tobacco Use (All prior to encounter date) This section includes the most current, and the historical, smoking and tobacco- related health factors from the [place] facility where the Encounter took place. Current Smoking Status This section includes the most current smoking, or tobacco-related health factor, from the [place] facility where the Encounter took place. Date/Time Current Smoking Status Comment Facil ity Jun 03, 2023 08:58 AM VA-TOBACCO FORMER USER [facility] Tobacco Use History This section includes a history of the smoking, or tobacco-related health factors, that were collected on or before the date of the Encounter. The data comes from the [place] facility where the Encounter took place. Date/Time Smoking Status/Tobacco Use Comment F acility Jun 03, 2023 08:58 AM [place]-TOBACCO QUIT 15 YRS OR MORE [facility] Advance Directives: All historical and current Section Date Range: From patient's date of to the date document was created. This section includes ALL of a patient's completed or amended [place] Advance and Rescinded Directives. The entries below indicate that a directive exists for the patient, but an actual copy is not included with this document. The data comes from all [place] facilities. Date Advance Directives Provider Source Jul 15, 2023 ADVANCE DIRECTIVE ROGER PEDRAZA Jun 30, 2019 ADVANCE DIRECTIVE CASSIE POWELL [place] [facility] Encounter Notes: All associated encounter notes This section contains the clinical notes associated to the Encounter. Date/Time Encounter Note(s) Provider Source Mar 30, 2024 08:57 AM AUDIOLOGY E & M NO TE: [facility] TITLE: AUDIOLOGY CLINIC STANDARD TITLE: AUDIOLOGY E & M NOTE DATE OF NOTE: MAR 30, 2024@08:57 ENTRY DATE: MAR 30, 2024@08:57:25 AUTHOR: GIL SANDY COSIGNER: URGENCY: STATUS: COMPLETED Diagnosis: bilateral sensorineural hearing loss Hearing Aid Fitting: SUBJECTIVE (S): The was seen for hearing aid fitting and issuance. S/He had previously been evaluated and found to exhibit significant hearing loss for which amplification was recommended. How does the patient/client best learn? verbal instruction, demonstration Does the patient/client have any cultural and shinto beliefs, emotional barriers, physical or cognitive limitations, and communication barriers which may impact his/her ability to learn? yes, has assistance with hearing aid management Otoscopy revealed minimal cerumen AU today. Desire and motivation to learn? Good OBJECTIVE (O): Physical fit of earmolds/receivers and domes/hearing aids was good. verified comfort. Verification of an appropriate acoustic response was obtained using Real Ear measurements (speech mapping) and NAL- NL1 targets. The reported good subjective benefit as well. Feedback manager college was run. Hearing aids were found to be meeting targets adequately and MPO was not exceeding estimated UCL. Settings stored in JONATHAN. ASSESSMENT (A): The following device(s) was/were issued: Make: Oticon Model: Real 1 miniRITE T Serial Numbers:[id number] Battery size: 312 Trial Period ends: 11-2-24 Domes/wax guards, etc.: power domes/prowax minifit Earmold Information: n/a Preforming Machine Operator size/power: 2 Program Settings (VC, Programs, Buttons): VCs enabled, linked Fitting Formula: NAL-NL1 Remote programming: capable Counseling [...] and reports confidence/understanding in all items reviewed. [place] was given written reference materials today. The [place] was informed of and agreed to [place] policy on hearing aid issuance: Users are responsible for the maintenance and security of their devices. Determination of need to replace a hearing aid is made by the [place] ground mixer. Hearing aids will not be replaced in [...] provided to: P Response to Education: JAYME ANGEL, PAO Pham Patient P Family F Significant Other SO Verbalizes Understanding VU Returns Demonstration RD Performs Independently PI Lacks Comprehension LC Refused Education RE Not Applicable NA /inge/ Rosalia CUELLO, [facility]-A STAFF SEAM FINISHER Signed: 03/30/2024 10:59 GIL SANDY [place] [facility]
--- OUTSIDE RECORDS SUMMARY | 2024-10-17 15:27 | XMS_ITS ---
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 Affairs ([place]) Organization Department of [place] Address [address] [place] [address] Care Team Providers Care Shredded Filler Cutter Operator Name Role Phone GURPREET PEREZ Primary [...] Policy Harding [facility] PLAN [facility] (WNR) MEDICARE ADVANTAGE [facility] (WNR) Oct 25, 2011 [facility] [id number] PATIENT Selected Encounter This [...] 10:00 AM AMBULATORY - REHAB MEDICIN E [place] [facility]TR [facility] May 12, 2024 11:30 AM AMBULATORY - REHAB MEDICIN E [place] [facility] [facility] Jun 05, 2024 08:00 AM AMBULATORY - MEDICINE AL C NTRL WSTRN [facility] Jun 13, 2024 10:00 AM AMBULATORY - REHAB MEDICIN E [place] [facility] [place] [facility] Aug 05, 2024 08:00 AM AMBULATORY - MEDICINE [place] [facility] Aug 22, 2024 09:30 AM AMBULATORY - MEDICINE [place] [place] Aug 29, 2024 08:00 AM AMBULATORY - MEDICINE [place] [facility] Sep 20, 2024 09:00 AM AMBULATORY - MEDICINE [facility] Social History: Smoking Status (Most [...] AM [place]-TOBACCO QUIT 15 YRS OR MORE [facility] [...] Jun 30, 2019 ADVANCE DIRECTIVE CASSIE POWELL [facility] Encounter Notes: All associated encounter notes This section contains the clinical notes associated to the Encounter. Date/Time Encounter Note(s) Provider Source March 20, 2024 12:00 PM NONVA CONSULT: LOCAL TITLE: COMMUNITY CARE-CONSULT RESULT NOTE STANDARD TITLE: NONVA CONSULT DATE OF NOTE: MARCH 20, 2024@12:00 ENTRY DATE: APR 07, 2024@14:46:16 AUTHOR: LIBAN TRIMBLE EXP COSIGNER: URGENCY: STATUS: COMPLETED VistA Imaging - Scanned Document SCANNED DOCUMENT SIGNATURE NOT REQUIRED Electronically Filed: 04/07/2024 by: LIBAN TRIMBLE MEDICAL LABORATORY TECH LIBAN TRIMBLE [facility]
--- OUTSIDE RECORDS SUMMARY | 2024-10-17 15:27 | XMS_ITS ---
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 Affairs (VA) Organization Department of Vetera ns Affairs ([place]) Address [address] [place] [address] Care Team Providers Care Security Incident Response Engineer Name Role Phone GURPREET PEREZ Primary [...] Policy Harding [facility] PLAN [facility] (WNR) MEDICARE ADVANTAGE [facility] (WNR) Oct 25, 2011 [facility] [id number] PATIENT Selected Encounter This [...] 05, 2024 08:00 AM [facility] February 25, 2024 02:00 PM [facility] Mar 30, 2024 10:00 AM AMBULATORY - [facility]HAB MEDICIN E [facility] May 12, 2024 11:30 AM [facility] Jun 05, 2024 08:00 AM AMBULATORY - MEDICINE [facility] Jun 13, 2024 10:00 AM AMBULATORY - REHAB MEDICIN E [facility] Social History: Smoking Status (Most current) [...] 2023 08:58 AM VA-TOBACCO FORMER USER [facility] Tobacco Use History This section includes a history of the smoking, or tobacco-related health factors, that were collected on or before the date of the Encounter. The data comes from the [place] facility where the Encounter took place. Date/Time Smoking Status/Tobacco Use Comment F acility Jun 03, 2023 08:58 AM VA-TOBACCO QUIT 15 YRS OR MORE [facility] Advance Directives: All historical and current Section Date Range: From patient's date of to the date document was created. This section includes ALL of a patient's completed or amended [place] Advance and Rescinded Directives. The entries below indicate that a directive exists for the patient, but an actual copy is not included with this document. The data comes from all [place] facilities. Date Advance Directives Provider Source Jul 15, 2023 ADVANCE DIRECTIVE ROGER PEDRAZA Jun 30, 2019 ADVANCE DIRECTIVE CASSIE POWELL [facility] Encounter Notes: All associated encounter notes This section contains the clinical notes associated to the Encounter. Date/Time Encounter Note(s) Provider Source Jan 03, 2024 12:00 PM NONVA CONSULT: LOCAL TITLE: COMMUNITY CARE-CONSULT RESULT NOTE STANDARD TITLE: NONVA CONSULT DATE OF NOTE: JAN 03, 2024@12:00 ENTRY DATE: JAN 19, 2024@10:50:17 AUTHOR: CLAUDIA MENDEZ EXP COSIGNER: URGENCY: STATUS: COMPLETED VistA Imaging - Scanned Document SCANNED DOCUMENT SIGNATURE NOT REQUIRED Electronically Filed: 01/19/2024 by: CLAUDIA MENDEZ PSYCHOLOGIST CLINICAL CLAUDIA MENDEZ [place] CNTL [facility]
--- OUTSIDE RECORDS SUMMARY | 2024-10-17 15:27 | XMS_ITS | Encounter Summary ---
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 ns Affairs ([place]) Organization Department of Vetera ns Affairs ([place]) Address [address] [place] [address] Care Team Providers Care Tractor Trailer Driver Name Role Phone GURPREET PEREZ Primary [...] Harding's Name Patient's Relationship to Policy Harding [facility] (WNR) MEDICARE ADVANTAGE [facility] (R) Oct 25, 2011 [facility] [id number] PATIENT Selected Encounter This section includes the information on record at [place] for the Encounter. Date/Time Encounter Type Encounter Description Reason Provider Source February 25, 2024 02:00 PM HEARING AID EXAM BOTH EARS AUDIOLOGY ICD-10-CM H90.3 Sensorineural hearing loss, bilateral CAMINITI,GIL E IHE Encounter Template Text not used by VA Assessments - Encounter Diagnoses This section includes the primary and secondary diagnoses documented for the Encounter. Date/Time Primary/Secondary Diagnosis Diagnosis Name Provider Source February 25, 2024 02:30 PM PRIMARY Sensorineural hearing loss, bilateral CAMINITI,GIL E [place] [facility] Plan of Treatment: Future Appointments (+ 6 months) and Future Tests (+/- 45 days) The Plan of Treatment section includes future care activities for the patient from all [place] treatment[facility]. This section includes future appointments and [...] 10:00 AM AMBULATORY - [facility]IC[facility] E [facility] May 12, 2024 11:30 AM AMBULATORY - [facility] MEDIC[facility] Jun 05, 2024 08:00 AM AMBULATORY - MEDICINE [facility] Jun 13, 2024 10:00 AM AMBULATORY - [facility]IC[facility] Aug 05, 2024 08:00 AM AMBULATORY - MEDICINE [facility] Aug 22, 2024 09:30 AM AMBULATORY - MEDICINE [facility] Social History: Smoking Status (Most current) [...] AM [place]-TOBACCO QUIT 15 YRS OR MORE [facility] Advance Directives: All historical and current Section Date Range: From patient's date of to the date document was created. This section includes ALL of a patient's completed or amended [place] Advance and Rescinded Directives. The entries below indicate that a directive exists for the patient, but an actual copy is not included with this document. The data comes from all [place] facilities. Date Advance Directives Provider Source Jul 15, 2023 ADVANCE DIRECTIVE ROGER PEDRAZA Jun 30, 2019 ADVANCE DIRECTIVE CASSIE POWELL [place] CN[facility] Encounter Notes: All associated encounter notes This section contains the clinical notes associated to the Encounter. Date/Time Encounter Note(s) Provider Source February 25, 2024 09:53 AM AUDIOLOGY E & M NO TE: LOCAL TITLE: AUDIOLOGY CLINIC STANDARD TITLE: AUDIOLOGY E & M NOTE DATE OF NOTE: FEBRUARY 25, 2024@09:53 ENTRY DATE: FEBRUARY 25, 2024@09:53:23 AUTHOR: GIL SANDY COSIGNER: URGENCY: STATUS: COMPLETED AUDIOLOGY CLINIC Has ADDENDA was seen 02-25-24 for a hearing evaluation. [place] denies tinnitus and vertigo. currently uses rechargeable RICs with domes. His requests new hearing aids similar in style with replaceable batteries, as she feels they will not get lost as easily if he has a hospitalization. She reports that his previous set was lost at the hospital when they were taken from him to be charged. Significant otologic history is reportedly unremarkable. History is reportedly positive for ([employer]) noise exposure. Medical history includes: Active problems - Computerized Problem List is the source for the followin. Exposure to potentially hazardous substance 2. Pruritic rash 3. Chronic bronchitis 4. Bronchiectasis 5. Weight loss 6. Chronic cough 7. Chronic deafness 8. Diabetes mellitus type 2 9. Hyperlipidemia 10. Benign essential hypertension 11. Anemia 12. Atherosclerosis of [place] coronary artery 13. H/O: vertigo 14. Hypoglycemia 15. Chronic orthostatic hypotension 16. Confusion Results are as follow: Otoscopy almost occluding cerumen AU. Pure tone audiometric testing with headphones revealed a moderate/moderately severe sloping to profound sensorineural hearing loss bilaterally. Word recognition scores were poor with 40% correct for the right ear and 48% correct for the left ear for recorded speech presented at 90 dB HL. As tympanograms were obtained bilaterally. and his were counseled on today's test results. Cerumen removal with PCP is advised. He is a candidate for amplification and is eligible for VA hearing aid services. Binaural RICs with batteries and power domes will be ordered for him in his choice of beige. RTC order was placed for the fitting, scheduled on 03-30-24 at 10am. /inge/ Rosalia CUELLO, [facility]-A STAFF SHOWROOM SALESPERSON Signed: 02/25/2024 14:41 Receipt Acknowledged By: 02/25/2024 14:49 /inge/ SHERIE MURRIETA LEAD ROLLER PRINTER 03/01/2024 ADDENDUM STATUS: COMPLETED Hearing aids received and certified, upcoming appointment scheduled on 03/30/2024. /inge/ [place] [facility] Automatic Grinding Machine Operator Signed: 03/01/2024 07:51 GIL SANDY [place] CNTRL WSTR[facility]
--- OUTSIDE RECORDS SUMMARY | 2024-10-17 15:27 | XMS_ITS | Encounter Summary ---
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 Affairs ([place]) Organization Department of Vetera ns Affairs [place]) Address [address] [place] [address] Care Team Providers Care Medical Communication Specialist Name Role Phone GURPREET PEREZ Primary Care [...] to Policy Harding [facility] PLAN [facility] (WNR) MEDICARE ADVANTAGE [facility] (WNR) Oct 25, 2011 [facility] [id number] PATIENT Selected Encounter This [...] 20 appointments. The data comes from all [place] treatment facilities. Appointment Date/Time Appointment Type Appointme nt Facility Name Feb 05, 2024 08:00 AM AM[facility]ULATORY [facility] February 25, 2024 02:00 [facility] Mar 30, 2024 10:00 AM AMBULATORY - REHAB MEDICIN E [facility] May 12, 2024 11:30 AM [facility] Jun 05, 2024 08:00 AM AMBULATORY - MEDICINE [facility] Jun 13, 2024 10:00 AM AMBULATORY - REHAB MEDICIN E [facility] Social History: Smoking Status (Most current) [...] 03, 2023 08:58 AM VA-TOBACCO FORMER USER [facility] Tobacco Use History This section includes a history of the smoking, or tobacco-related health factors, that were collected on or before the date of the Encounter. The data comes from the [place] facility where the Encounter took place. Date/Time Smoking Status/Tobacco Use Comment F acility Jun 03, 2023 08:58 AM VA-TOBACCO QUIT 15 YRS OR MORE [facility] Advance Directives: All historical and current [...] JAN 17, 2024 ENTRY DATE: FEB 01, 2024@08:30:48 AUTHOR: TRE OLIVEIRA EXP COSIGNER: URGENCY: STATUS: COMPLETED VistA Imaging - Scanned Document SCANNED DOCUMENT SIGNATURE NOT REQUIRED Electronically Filed: 02/01/2024 by: TRE MORGAN CNTRL WSN [facility]
--- OUTSIDE RECORDS SUMMARY | 2024-10-17 15:28 | XMS_ITS | Encounter Summary ---
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 Affairs ([place]) Organization Department of Vetera ns Affairs ([place]) Address [address] [place] [address] Care Team Providers Care Air Turning Machine Feeder Name Role Phone GURPREET PEREZ Primary Care [...] Patient's Relationship to Policy Harding [facility] PLAN [facility] (WNR) MEDICARE ADVANTAGE [facility] (WNR) Oct 25, 2011 [facility] [id number] PATIENT Selected Encounter This section includes the information on record at [place] for the Encounter. Date/Time Encounter Type Encounter Description Reason Pro vider Source Nov 24, 2023 12:00 PM Outpatient Encounter COMMUNITY CARE [...] Date/Time Appointment Type Appointme nt Facility Name Dec 08, 2023 08:00 AM [facility] Feb 05, 2024 08:00 AM AM[facility]UL[facility] February 25, 2024 02:00 PM [facility] Mar 30, 2024 10:00 AM [facility] May 12, 2024 11:30 AM AMBULATORY - REHAB MEDICIN E [facility] Social History: Smoking Status (Most current) [...] 2023 08:58 AM VA-TOBACCO FORMER USER [facility] Tobacco Use History This section includes a history of the smoking, or tobacco-related health factors, that were collected on or before the date of the Encounter. The data comes from the [place] facility where the Encounter took place. Date/Time Smoking Status/Tobacco Use Comment F acility Jun 03, 2023 08:58 AM [place]-TOBACCO QUIT 15 YRS OR MORE [facility] Advance Directives: All historical and current [...] 30, 2019 ADVANCE DIRECTIVE CASSIE POWELL [facility] Encounter Notes: All associated encounter notes This section contains the clinical notes associated to the Encounter. Date/Time Encounter Note(s) Provider Source Nov 24, 2023 12:00 PM NONVA CONSULT: LOCAL TITLE: COMMUNITY CARE-CONSULT RESULT NOTE STANDARD TITLE: NONVA CONSULT DATE OF NOTE: NOV 24, 2023@12:00 ENTRY DATE: DEC 27, 2023@10:55:46 AUTHOR: CLAUDIA MENDEZ COSIGNER: URGENCY: STATUS: COMPLETED VistA Imaging - Scanned Document SCANNED DOCUMENT SIGNATURE NOT REQUIRED Electronically Filed: 12/27/2023 by: CLAUDIA MENDEZ SECTION [employer] CLAUDIA MENDEZ [place] CNTL [facility]
--- OUTSIDE RECORDS SUMMARY | 2024-10-17 15:28 | XMS_ITS | Encounter Summary ---
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 Affairs ([place]) Organization Department of Vetera ns Affairs [place]) Address [address] [place] [address] Care Team Providers Care Electrical Engineering Technician Name Role Phone GURPREET PEREZ Primary Care [...] Name Patient's Relationship to Policy Harding [facility] PLAN [facility] (WNR) MEDICARE ADVANTAGE [facility] (WNR) Oct 25, 2011 [facility] [id number] PATIENT Selected Encounter This section includes the information on record at [place] for the Encounter. Date/Time Encounter Type Encounter Description Reason Pro vider Source Nov 25, 2023 12:00 AM Outpatient Encounter COMMUNITY CARE CONSULT [...] 08, 2023 08:00 AM AMBULATORY [facility] Feb 05, 2024 08:00 AM AMBULATORY - MEDICINE [facility] NTRL [facility] February 25, 2024 02:00 PM [facility] Mar 30, 2024 10:00 AM [facility]UL[facility] May 12, 2024 11:30 AM AMBULATORY - REHAB MEDICIN E [facility] Social History: Smoking Status [...] 03, 2023 08:58 AM VA-TOBACCO FORMER USER [facility] Tobacco Use History This section includes a history of the smoking, or tobacco-related health factors, that were collected on or before the date of the Encounter. The data comes from the [place] facility where the Encounter took place. Date/Time Smoking Status/Tobacco Use Comment F acility Jun 03, 2023 08:58 AM [place]-TOBACCO QUIT 15 YRS OR MORE [facility] Advance Directives: All historical and current [...] 2019 ADVANCE DIRECTIVE CASSIE POWELL [facility] Encounter Notes: All associated encounter notes This section contains the clinical notes associated to the Encounter. Date/Time Encounter Note(s) Provider Source Nov 25, 2023 12:00 AM NONVA CONSULT: LOCAL TITLE: COMMUNITY CARE-CONSULT RESULT NOTE STANDARD TITLE: NONVA CONSULT DATE OF NOTE: NOV 25, 2023 ENTRY DATE: DEC 14, 2023@13:47:04 AUTHOR: JERRY JIANG COSIGNER: URGENCY: STATUS: COMPLETED VistA Imaging - Scanned Document SCANNED DOCUMENT SIGNATURE NOT REQUIRED Electronically Filed: 12/14/2023 by: JERRY BUNN CNTRL W[facility]
--- OUTSIDE RECORDS SUMMARY | 2024-10-17 15:28 | XMS_ITS ---
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 ns Affairs ([place]) Organization Department of [place] Affairs ([place]) Address [address] [place] [id number] Care Team Providers Care Cutter Brake Lining Name Role Phone GURPREET PEREZ Primary Care [...] Harding's Name Patient's Relationship to Policy Harding [facility] (WNR) MEDICARE ADVANTAGE [facility] (R) Oct 25, 2011 [facility] [id number] PATIENT Selected Encounter This section includes the information on record at [place] for the Encounter. Date/Time Encounter Type Encounter Description Reason Provider Source Nov 26, 2023 03:18 PM HC PRO PHONE CALL 5-10 MIN TELEPHONE/BLANCO OLIVARES ICD-10-CM Z74.1 Need for assistance with personal care BILL BYERS Luisito Encounter Template Text not used by [place] Assessments - Encounter Diagnoses This section includes the primary and secondary diagnoses documented for the Encounter. Date/Time Primary/Secondary Diagnosis Diagnosis Name Provider Source Nov 26, 2023 03:18 PM PRIMARY Need for assistance with personal care BILL BYERS [facility] Plan of Treatment: Future Appointments (+ 6 months) and Future Tests (+/- 45 days) The Plan of Treatment section includes future care activities for the patient from all [place] [facility]. This section includes future appointments and [...] 08, 2023 08:00 AM AMBULATORY - MEDICINE [facility] Feb 05, 2024 08:00 AM AMBULATORY - MEDICINE [facility] February 25, 2024 02:00 PM AMBULATORY - REHAB MEDICIN E [facility] Mar 30, 2024 10:00 AM AMBULATORY - REHAB MEDICIN E [facility] May 12, 2024 11:30 AM AMBULATORY - REHAB MEDICIN E [facility] Social History: Smoking Status (Most current) and [...] 2023 08:58 AM VA-TOBACCO FORMER USER [facility] Tobacco Use History This section includes a history of the smoking, or tobacco-related health factors, that were collected on or before the date of the Encounter. The data comes from the [place] facility where the Encounter took place. Date/Time Smoking Status/Tobacco Use Comment F acility Jun 03, 2023 08:58 AM [place]-TOBACCO QUIT 15 YRS OR MORE [facility] Advance Directives: All historical and current Section [...] 30, 2019 ADVANCE DIRECTIVE CASSIE POWELL [facility] Encounter Notes: All associated encounter notes This section contains the clinical notes associated to the Encounter. Date/Time Encounter Note(s) Provider Source Nov 26, 2023 03:18 PM CAREGIVER CERTIFICATE: LOCAL TITLE: CSP DENIAL NOTE STANDARD TITLE: CAREGIVER CERTIFICATE DATE OF NOTE: NOV 26, 2023@15:18 ENTRY DATE: NOV 26, 2023@15:19:10 AUTHOR: BILL BYERS EXP COSIGNER: URGENCY: STATUS: COMPLETED Caregiver Support Program Denial Note Denial date: 11/24/2023 Denied from the Program of Comprehensive Assistance for Family Caregivers. The person being denied is the [place]. 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 Date of verbal notification of determination: 11/26/2023 Date determination letter was mailed: 11/30/2023 The following information was provided: Appeal and Review Options and Caregiver are currently enrolled in the [facility]. /inge/ BILL BYERS LCSW Clinical Production Sound Mixer Signed: 11/26/2023 15:21 BILL BYERS [facility]
--- OUTSIDE RECORDS SUMMARY | 2024-10-17 15:28 | XMS_ITS | Encounter Summary ---
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 Affairs ([place]) Organization Department of Vetera ns Affairs ([place]) Address [address] [place] [address] Care Team Providers Care Major Assembly Lineman Name Role Phone GURPREET PEREZ Primary Care [...] Name Patient's Relationship to Policy Harding [facility] PLAN [facility] (WNR) MEDICARE ADVANTAGE [facility] (WNR) Oct 25, 2011 [facility] [id number] PATIENT Selected Encounter This section includes the information on record at [place] for the Encounter. Date/Time Encounter Type Encounter Description Reason Pro vider Source Dec 16, 2023 12:00 AM Outpatient Encounter COMMUNITY CARE [...] 05, 2024 08:00 AM AMBULATORY - MEDICINE [facility] February 25, 2024 02:00 PM [facility] Mar 30, 2024 10:00 AM AMBULATORY - REHAB MEDICIN E [facility] May 12, 2024 11:30 AM [facility] Jun 05, 2024 08:00 AM AMBULATORY - MEDICINE [facility] Jun 13, 2024 10:00 AM [...] F acility Jun 03, 2023 08:58 AM [place]-TOBACCO QUIT 15 YRS OR MORE [facility] [...] Encounter. Date/Time Encounter Note(s) Provider Source Dec 16, 2023 12:00 AM NONVA CONSULT: LOCAL TITLE: COMMUNITY CARE-CONSULT RESULT NOTE STANDARD TITLE: NONVA CONSULT DATE OF NOTE: DEC 16, 2023 ENTRY DATE: FEB 16, 2024@10:46:29 AUTHOR: GAUTAM TAM EXP COSIGNER: URGENCY: STATUS: COMPLETED VistA Imaging - Scanned Document SCANNED DOCUMENT SIGNATURE NOT REQUIRED Electronically Filed: 02/16/2024 by: GAUTAM TAM HAULAGE BOSS GAUTAM TAM [facility] Dec 16, 2023 12:00 AM NONVA CONSULT: LOCAL TITLE: COMMUNITY CARE-CONSULT RESULT NOTE STANDARD TITLE: NONVA CONSULT DATE OF NOTE: DEC 16, 2023 ENTRY DATE: MAY 26, 2024@05:56:07 AUTHOR: YUNIEL SANDERS EXP COSIGNER: URGENCY: STATUS: COMPLETED VistA Imaging - Scanned Document SCANNED DOCUMENT SIGNATURE NOT REQUIRED Electronically Filed: 05/26/2024 by: YUNIEL LUIS [facility]
--- OUTSIDE RECORDS SUMMARY | 2024-10-17 15:28 | XMS_ITS ---
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 Affairs ([place]) Organization Department of Veter[place] ns Affairs ([place]) Address [address] [place] [address] Care Team Providers Care Team Guide Name Role Phone GURPREET PEREZ Primary Care [...] Harding's Name Patient's Relationship to Policy Harding [facility] PLAN [facility] (WNR) MEDICARE ADVANTAGE [facility] (WNR) Oct 25, 2011 [facility] [id number] PATIENT Selected Encounter This section includes the information on record at [place] for the Encounter. Date/Time Encounter Type Encounter Description Reason Pro vider Source Dec 28, 2023 12:00 AM Outpatient Encounter COMMUNITY CARE [...] 05, 2024 08:00 AM AMBULATORY - [facility]IC[facility] February 25, 2024 02:00 PM [facility] Mar 30, 2024 10:00 AM AMBULATORY - REHAB MEDICIN E [facility] May 12, 2024 11:30 AM [facility] Jun 05, 2024 08:00 AM AMBULATORY - MEDICINE [facility] Jun 13, 2024 10:00 AM AMBULATORY - REHAB MEDICIN E [facility] Social History: Smoking Status (Most [...] 03, 2023 08:58 AM VA-TOBACCO FORMER USER [facility] Tobacco Use History This section includes a history of the smoking, or tobacco-related health factors, that were collected on or before the date of the Encounter. The data comes from the [place] facility where the Encounter took place. Date/Time Smoking Status/Tobacco Use Comment F acility Jun 03, 2023 08:58 AM VA-TOBACCO QUIT 15 YRS OR MORE [facility] Advance Directives: All historical and [...] Jun 30, 2019 ADVANCE DIRECTIVE CASSIE POWELL [facility] Encounter Notes: All associated encounter notes This section contains the clinical notes associated to the Encounter. Date/Time Encounter Note(s) Provider Source Dec 28, 2023 12:00 AM NONVA CONSULT: LOCAL TITLE: COMMUNITY CARE-CONSULT RESULT NOTE STANDARD TITLE: NONVA CONSULT DATE OF NOTE: DEC 28, 2023 ENTRY DATE: JAN 26, 2024@09:48:13 AUTHOR: JERRY JIANG EXP COSIGNER: URGENCY: STATUS: COMPLETED VistA Imaging - Scanned Document SCANNED DOCUMENT SIGNATURE NOT REQUIRED Electronically Filed: 01/26/2024 by: JERRY BUNN [place] CNTRL [facility]
--- OUTSIDE RECORDS SUMMARY | 2024-10-17 15:28 | XMS_ITS | Encounter Summary ---
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 Organization [place] Address [address] [place] [address] Care Team Providers Care Boiler Or Engine Operator Name Role Phone GURPREET PEREZ Primary [...] Harding's Name Patient's Relationship to Policy Harding [facility] PLAN [facility] (WNR) MEDICARE ADVANTAGE [facility] (WNR) Oct 25, 2011 [facility] [id number] PATIENT Selected Encounter This section includes the information on record at [place] for the Encounter. Date/Time Encounter Type Encounter Description Reason Pro vider Source Dec 27, 2023 12:00 AM Outpatient Encounter COMMUNITY CARE [...] 05, 2024 08:00 AM [facility] February 25, 2024 02:00 PM [facility] Mar 30, 2024 10:00 AM AMBULATORY - REHAB MEDICIN [facility] May 12, 2024 11:30 AM [facility]BUL[facility] Jun 05, 2024 08:00 AM AMBULATORY - MEDICINE [facility] Jun 13, 2024 10:00 AM AMBULATORY - REHAB MEDICIN E [facility] Social History: Smoking Status (Most current) and [...] 03, 2023 08:58 AM VA-TOBACCO FORMER USER [facility] Tobacco Use History This section includes a history of the smoking, or tobacco-related health factors, that were collected on or before the date of the Encounter. The data comes from the [place] facility where the Encounter took place. Date/Time Smoking Status/Tobacco Use Comment F acility Jun 03, 2023 08:58 AM VA-TOBACCO QUIT 15 YRS OR MORE [facility] Advance Directives: All historical and current Section [...] Jun 30, 2019 ADVANCE DIRECTIVE CASSIE POWELL [facility] Encounter Notes: All associated encounter notes This section contains the clinical notes associated to the Encounter. Date/Time Encounter Note(s) Provider Source Dec 27, 2023 12:00 AM NONVA CONSULT: LOCAL TITLE: COMMUNITY CARE-CONSULT RESULT NOTE STANDARD TITLE: NONVA CONSULT DATE OF NOTE: DEC 27, 2023 ENTRY DATE: JAN 13, 2024@11:15:37 AUTHOR: BERNARD CABEZAS MA EXP COSIGNER: URGENCY: STATUS: COMPLETED VistA Imaging - Scanned Document SCANNED DOCUMENT SIGNATURE NOT REQUIRED Electronically Filed: 01/13/2024 by: BERNARD CABEZAS ASSISTANT TEACHER BERNARD CABEZAS [place] [facility]
--- OUTSIDE RECORDS SUMMARY | 2024-10-17 15:28 | XMS_ITS | Encounter Summary ---
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 Affairs [place] Organization [place] Address [address] [place] [address] Care Team Providers Care Account Manager Education Name Role Phone GURPREET PEREZ Primary Care [...] Harding's Name Patient's Relationship to Policy Harding [facility] PLAN [facility] (WNR) MEDICARE ADVANTAGE [facility] (WNR) Oct 25, 2011 [facility] [id number] PATIENT Selected Encounter This section includes the information on record at [place] for the Encounter. Date/Time Encounter Type Encounter Description Reason Pro vider Source Nov 22, 2023 12:00 AM Outpatient Encounter COMMUNITY CARE [...] 20 appointments. The data comes from all [facility]. Appointment Date/Time Appointment Type Appointme nt Facility Name Dec 08, 2023 08:00 AM AMBULATORY - MEDICINE [place] [facility] [place] [facility] Feb 05, 2024 08:00 AM AMBULATORY - MEDICINE [place] [facility] [place] [facility] February 25, 2024 02:00 PM AMBULATORY - REHAB MEDICIN E [place] [facility] [place] [facility] Mar 30, 2024 10:00 AM AMBULATORY - REHAB MEDICIN E [place] [facility] [place] [facility] May 12, 2024 11:30 AM AMBULAT[facility] Active, Pending, and Scheduled Orders This section includes a listing of several types of active, pending, and scheduled orders, including clinic medications orders, diagnostic test orders, procedure orders and consult orders; where the start date of the order is 45 days before the date of the Encounter or 45 days after the date of theEncounter. The data comes from all [facility]. Test Date/Time Test Type Test Details Facility Name Oct 08, 2023 12:00 AM Laboratory - Chemi stry Order BASIC METABOLIC PANEL (fasting) BLOOD (SST-SERUM) [facility] Oct 08, 2023 12:00 AM Laboratory - Chemi stry Order LIPID PANEL FASTING BLOOD (SST-SERUM) [facility] Oct 08, 2023 12:00 AM Laboratory - Chemi stry Order LIVER FUNCTION BLOOD (SST-SERUM) [facility] Oct 08, 2023 12:00 AM Laboratory - Chemi stry Order CBC AND DIFF (AUTO) BLOOD (LAV-BLOOD) [facility] Oct 08, 2023 12:00 AM Laboratory - Chemi stry Order HEMOGLOBIN A1C PANEL BLOOD (LAV-BLOOD) [facility] Oct 08, 2023 12:00 AM Laboratory - Chemi stry Order TSH BLOOD (SST-SERUM) [facility] Social History: Smoking Status (Most current) and Tobacco Use (All prior to encounter date) This section includes the most current, and the historical, smoking and tobacco- related health factors from the [place] facility where the Encounter took place. Current Smoking Status This section includes the most current smoking, or tobacco-related health factor, from the [place] facility where the Encounter took place. Date/Time Current Smoking Status Comment Facil ity Jun 03, 2023 08:58 AM VA-TOBACCO FORMER USER [facility] Tobacco Use History This section includes a history of the smoking, or tobacco-related health factors, that were collected on or before the date of the Encounter. The data comes from the [place] facility where the Encounter took place. Date/Time Smoking Status/Tobacco Use Comment F acility Jun 03, 2023 08:58 AM VA-TOBACCO QUIT 15 YRS OR MORE [facility] Advance Directives: All historical and current Section Date Range: From patient's date of to the date document was created. This section includes ALL of a patient's completed or amended [place] Advance and Rescinded Directives. The entries below indicate that a directive exists for the patient, but an actual copy is not included with this document. The data comes from all [place] facilities. Date Advance Directives Provider Source Jul 15, 2023 ADVANCE DIRECTIVE ROGER PEDRAZA Jun 30, 2019 ADVANCE DIRECTIVE CASSIE POWELL [facility] Encounter Notes: All associated encounter notes This section contains the clinical notes associated to the Encounter. Date/Time Encounter Note(s) Provider Source Nov 22, 2023 12:00 AM NONVA CONSULT: LOCAL TITLE: COMMUNITY CARE-CONSULT RESULT NOTE STANDARD TITLE: NONVA CONSULT DATE OF NOTE: NOV 22, 2023 ENTRY DATE: DEC 15, 2023@12:12:57 AUTHOR: JERRY JIANG EXP COSIGNER: URGENCY: STATUS: COMPLETED VistA Imaging - Scanned Document SCANNED DOCUMENT SIGNATURE NOT REQUIRED Electronically Filed: 12/15/2023 by: JERRY BUNN [facility] Nov 22, 2023 12:00 AM NONVA CONSULT: LOCAL TITLE: COMMUNITY CARE-CONSULT RESULT NOTE STANDARD TITLE: NONVA CONSULT DATE OF NOTE: NOV 22, 2023 ENTRY DATE: DEC 15, 2023@12:16:35 AUTHOR: JERRY JIANG EXP COSIGNER: URGENCY: STATUS: COMPLETED VistA Imaging - Scanned Document SCANNED DOCUMENT SIGNATURE NOT REQUIRED Electronically Filed: 12/15/2023 by: [facility] [place] [facility] Nov 22, 2023 12:00 AM NONVA CONSULT: LOCAL TITLE: COMMUNITY CARE-CONSULT RESULT NOTE STANDARD TITLE: NONVA CONSULT DATE OF NOTE: NOV 22, 2023 ENTRY DATE: DEC 15, 2023@12:20:11 AUTHOR: JERRY JIANG EXP COSIGNER: URGENCY: STATUS: COMPLETED VistA Imaging - Scanned Document SCANNED DOCUMENT SIGNATURE NOT REQUIRED Electronically Filed: 12/15/2023 by: JERRY BUNN [place] [facility]
--- OUTSIDE RECORDS SUMMARY | 2024-10-17 15:28 | XMS_ITS | Encounter Summary ---
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 [place] Address [address] [address] Care Team Providers Care Customer Support Consultant Name Role Phone GURPREET PEREZ Primary [...] Harding's Name Patient's Relationship to Policy Harding [facility] PLAN [facility] (WNR) MEDICARE ADVANTAGE [facility] (WNR) Oct 25, 2011 [facility] [id number] PATIENT Selected Encounter This section includes the information on record at [place] for the Encounter. Date/Time Encounter Type Encounter Description Reason Pro vider Source Dec 06, 2023 12:00 AM Outpatient Encounter COMMUNITY CARE [...] 08, 2023 08:00 AM AMBULATORY - MEDICINE [facility] Feb 05, 2024 08:00 [facility] February 25, 2024 02:00 PM AMBULATORY - REHAB MEDICIN E [facility] Mar 30, 2024 10:00 AM AMBULATORY - REHAB MEDICIN E [facility] May 12, 2024 11:30 AM AMBULATORY - REHAB MEDICIN E [facility] Jun 05, 2024 08:00 AM AMBULATORY - MEDICINE [facility] Social History: Smoking Status (Most [...] Encounter. Date/Time Encounter Note(s) Provider Source Dec 06, 2023 12:00 AM NONVA CONSULT: LOCAL TITLE: COMMUNITY CARE-CONSULT RESULT NOTE STANDARD TITLE: NONVA CONSULT DATE OF NOTE: DEC 06, 2023 ENTRY DATE: DEC 24, 2023@14:38:49 AUTHOR: TRE OLIVEIRA EXP COSIGNER: URGENCY: STATUS: COMPLETED VistA Imaging - Scanned Document SCANNED DOCUMENT SIGNATURE NOT REQUIRED Electronically Filed: 12/24/2023 by: TRE MORGAN [facility] Dec 06, 2023 12:00 AM NONVA CONSULT: LOCAL TITLE: COMMUNITY CARE-CONSULT RESULT NOTE STANDARD TITLE: NONVA CONSULT DATE OF NOTE: DEC 06, 2023 ENTRY DATE: DEC 27, 2023@13:01:18 AUTHOR: BHARAT SANTIAGO EXP COSIGNER: URGENCY: STATUS: COMPLETED VistA Imaging - Scanned Document SCANNED DOCUMENT SIGNATURE NOT REQUIRED Electronically Filed: 12/27/2023 by: BHARAT NIXON CNTL [facility]
--- OUTSIDE RECORDS SUMMARY | 2024-10-17 15:28 | XMS_ITS | Encounter Summary ---
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 [place] Affairs [place] Organization [place] Address [address] [place] [address] Care Team Providers Care Surveillance Agent Name Role Phone GURPREET PEREZ Primary Care [...] Policy Harding [facility] PLAN [facility] (WNR) MEDICARE ADVANTAGE [facility] (WNR) Oct 25, 2011 [facility] [id number] PATIENT Selected Encounter This section includes the information on record at [place] for the Encounter. Date/Time Encounter Type Encounter Description Reason Pro vider Source Dec 20, 2023 12:00 AM Outpatient Encounter COMMUNITY CARE [...] 20 appointments. The data comes from all [place] treatment facilities. Appointment Date/Time Appointment Type Appointme nt Facility Name Feb 05, 2024 08:00 AM AMBULATORY - MEDICINE [facility] February 25, 2024 02:00 PM [facility] Mar 30, 2024 10:00 AM AMBULATORY - REHAB MEDICIN E [facility] May 12, 2024 11:30 AM [facility] Jun 05, 2024 08:00 AM AMBULATORY - MEDICINE [facility] Jun 13, 2024 10:00 AM AMBULATORY - REHAB MEDICIN E [facility] Social History: Smoking Status (Most [...] 03, 2023 08:58 AM VA-TOBACCO FORMER USER [facility] Tobacco Use History This section includes a history of the smoking, or tobacco-related health factors, that were collected on or before the date of the Encounter. The data comes from the [place] facility where the Encounter took place. Date/Time Smoking Status/Tobacco Use Comment F acility Jun 03, 2023 08:58 AM [place]-TOBACCO QUIT 15 YRS OR MORE [facility] Advance Directives: All historical and current Section Date Range: From patient's date of to the date document was created. This section includes ALL of a patient's completed or amended [place] Advance and Rescinded Directives. The entries below indicate that a directive exists for the patient, but an actual copy is not included with this document. The data comes from all [place] facilities. Date Advance Directives Provider Source Jul 15, 2023 ADVANCE DIRECTIVE ROGER PEDRAZA Jun 30, 2019 ADVANCE DIRECTIVE CASSIE POWELL [facility] Encounter Notes: All associated encounter notes This section contains the clinical notes associated to the Encounter. Date/Time Encounter Note(s) Provider Source Dec 20, 2023 12:00 AM NONVA CONSULT: LOCAL TITLE: COMMUNITY CARE-CONSULT RESULT NOTE STANDARD TITLE: NONVA CONSULT DATE OF NOTE: DEC 20, 2023 ENTRY DATE: JAN 10, 2024@07:56:59 AUTHOR: BERNARD CABEZAS MA EXP COSIGNER: URGENCY: STATUS: COMPLETED VistA Imaging - Scanned Document SCANNED DOCUMENT SIGNATURE NOT REQUIRED Electronically Filed: 01/10/2024 by: BERNARD CABEZAS SENIOR DRAFTER BERNARD CABEZAS CN[facility]L [facility]
--- OUTSIDE RECORDS SUMMARY | 2024-10-17 15:28 | XMS_ITS ---
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 Date/Time Encounter Type Encounter Description Reason Pro vider Source Nov 24, 2023 12:41 PM Outpatient Encounter ADMIN PAT ACTIVTIES (MASNONCT) [...] 08, 2023 08:00 AM AMBULATORY - MED[facility] Feb 05, 2024 08:00 AM [place]UL[place]ORY [place]ICINE [place] [facility] February 25, 2024 02:00 PM [facility] Mar 30, 2024 10:00 AM [facility] May 12, 2024 11:30 AM AMBULATORY - [facility] MEDICIN E [facility] [...] Facil ity Jun 03, 2023 08:58 AM [place]-TOBAC[place] FORMER USER [facility] Tobacco Use History This section includes a history of the smoking, or tobacco-related health factors, that were collected on or before the date of the Encounter. The data comes from the [place] facility where the Encounter took place. Date/Time Smoking Status/Tobacco Use Comment F acility Jun 03, 2023 08:58 AM [place]-TO[place]AC[place] QUIT 15 YRS OR MORE [facility] Advance Directives: All historical and current Section Date Range: From patient's date of to the date document was created. This section includes ALL of a patient's completed or amended [place] Advance and Rescinded Directives. The entries below [...] Encounter Note(s) Provider Source Nov 24, 2023 12:48 PM ADDENDUM: LOCAL TITLE: Addendum STANDARD TITLE: ADDENDUM DATE OF NOTE: NOV 24, 2023@12:48:53 ENTRY DATE: NOV 24, 2023@12:48:54 AUTHOR: CURLY BOOKER COSIGNER: URGENCY: STATUS: COMPLETED Gamal Gomez [address] [facility] [place] [id number] 11/24/2023 Dear Gamal Gomez: Thank you for your interest in the Program of Comprehensive Assistance for Family Caregivers (PCAFC). We have made a decision on your VA Form 10-10CG PCAFC application that was received on 10/28/2023. This letter informs you of our decision. It lists the evidence used and reasons for our decision. We have also included information about what to do if you disagree with our decision, and who to contact if you have questions or need assistance. The following individuals were considered during this application review: [place]: Gamal Gomez Primary Family Caregiver Applicant: Maria C Alberto WHAT WE DECIDED The Centralized Eligibility and Appeals Team (CEAT) determined that you and each Family Caregiver identified on VA Form 10-10CG do not meet the current eligibility requirements for PCAFC and your application is denied. EXPLANATION OF DECISION PCAFC eligibility requirements can be found in 38 U.S.C. 1720G, Assistance and Support Services for Caregivers, and 38 C.F.R. Part 71, Caregivers Benefits and Certain Medical Benefits Offered to Family Members of Veterans. For the purposes of this letter, the term means an eligible of the Armed Forces or an eligible manufacturing team member of the Armed Forces who has been found unfit for duty due to a medical condition by their Service's Physical Evaluation Board, and a date of medical discharge has been issued. The term Armed Forces means the active , naval, air, or space service as described in section 101 of title 38, [place] Code. The Program Requirements and Findings section of this letter includes PCAFC eligibility criteria that were evaluated to make this decision. Your denial for PCAFC was based on the determination that one or more applicants did not meet PCAFC eligibility requirements based on one or more of the below reasons: * The applicant is not in need of personal care services for a minimum of six continuous months based on: o an inability to perform an activity of daily living (ADL) o a need for supervision or protection based on symptoms or residuals of neurological or other impairment or injury o a need for regular or extensive instruction or supervision without which the ability of the to function in daily life would be seriously impaired EVIDENCE CONSIDERED TO MAKE THE DECISION We based this decision on the following records: * VA Form 10-10CG, Application for the Program of Comprehensive Assistance for Family Caregivers, dated 10/28/2023. * Intake, dated 10/29/2023. * Assessment, dated 11/01/2023. * Functional Assessment, dated 11/05/2023. * Caregiver Assessment, dated 11/01/2023. * Primary Care Collaboration, dated 11/23/2023. * VA Medical Records, dated 07/12/2023-11/24/2023. * Non-VA Medical Records, including [facility] Result Note (OT Reassessment) 09/13/2023. * VA VBA Records, including VBMS code sheet 06/24/2021; DD214. * Other information, including - A summary of the rationale, recommendation, and decision regarding the evidence considered is documented in the [place]'s electronic health record in the CEAT Review Notes. A copy of the evidence used to make our decision can be viewed in the following ways: Medical records can be viewed in [facility] and by requesting a copy of medical records by submitting a signed and completed VA Form 10-5345a, Individuals' request for a copy of their own health information, to the Jacquard Card Lacer at the local [place] medical facility. PROGRAM REQUIREMENTS AND FINDINGS Below are the program eligibility requirements for Veterans and Family Caregivers for participation in the Program of Comprehensive Assistance for Family Caregivers, with notation if the requirement was met or unmet. FINDINGS Evaluation of initial and ongoing PCAFC eligibility requires comprehensive assessment of the [place] and Family Caregiver(s) or Applicant(s). Over time, the needs and circumstances of Veterans and caregivers change, therefore, an eligible [place] or Family Caregiver's eligibility may also change and will be periodically reassessed as applicable. As a result, certain findings in PCAFC decisions are time specific. In making our determination, we made the following findings as identified in 38 C.F.R. 71.20, Eligible Veterans and Service Members, and 38 C.F.R, 71.25, Approval and Designation of Primary and Secondary Family Caregivers, however; note that any favorable findings are dynamic in nature and apply to circumstances that are subject to change manager time. Thus, in the future, these findings will require re-evaluation. * The applicant is a , or a member of the Armed Forces undergoing medical discharge from the Armed Forces. The term means a person who served in the active , naval, air, or space service, and who was discharged or released therefrom under conditions other than dishonorable. The term undergoing medical discharge means the manufacturing team member has been found unfit for duty due to a medical condition by their Service's Physical Evaluation Board, and a date of medical discharge has been issued. o Requirement met due to the applicant is a [place], or a member of the Armed Forces undergoing medical discharge from the Armed Forces. * The [place] applicant has a serious injury incurred or aggravated in the line of duty in the active , naval, or air service. The term serious injury means any service-connected disability that (1) is rated at 70 percent or more by VA; or (2) is combined with any other service-connected disability or disabilities, and a combined rating of 70 percent or more is assigned by VA. o Requirement met due to the incurred or aggravated a serious injury in the line of duty. The has a Single service-connected disability rating of 100% assigned by VA. * The [place] applicant resides in a State. The term State means each of the several States, Territories, and possessions of the [place], the [place], and the [facility]. o Requirement met due to the [place] applicant residing in [place], [place]. * The [place] applicant is in need of personal care services for a minimum of six continuous months. In need of personal care services means the eligible requires in-person personal care services from another person, and without such personal care services, alternative in-person caregiving arrangements (including respite care or assistance of an alternative caregiver) would be required to support the eligible 's safety. Personal care services means care or assistance of another person necessary in order to support the eligible 's health and well-being, and perform personal functions required in everyday living ensuring the eligible remains safe from hazards or dangers incident to his or her daily environment. o Requirement unmet due to: . The applicant is not in need of personal care services. After a thorough review of your records, there was insufficient evidence to support that you met eligibility criteria for PCAFC benefits under 38 U.S.C. ?1720G and 38 C.F.R. ?? 71.15-71.25. * The applicant is in need of personal care services for a minimum of six continuous months based on any one of the following: o An inability to perform an activity of daily living (ADL). Inability to perform an ADL means a requires personal care services each time the [place] applicant completes one or more of the following ADLs: . Requirement unmet 1. Feeding oneself due to loss of coordination of upper extremities, extreme weakness, inability to swallow, or the need for a non-oral means of nutrition: . Requirement unmet due to - When considering [facility] eligibility for the ADL of feeding, a must require hands-on assistance with bringing food and/or liquid to the mouth each time the activity is performed. Setup or clean-up assistance and supervision or touching assistance are not considered or defined as hands-on assistance and does not meet the PCAFC eligibility criteria for this ADL. Requiring assistance with an ADL only some of the time does not meet the definition of an inability to perform an ADL. If the [place]'s needs with respect to ADLs are met with an assistive device, the individual would not be in need of personal care services based on an inability to perform an ADL. Taken as a whole, the medical documents do not support that the has a functional impairment that would meet the PCAFC eligibility criteria at the threshold that would necessitate a helper to lift, hold or support trunk or limbs in order to complete tasks the ADL of feeding each time the activity is performed. 2. Grooming oneself in order to keep oneself clean and presentable: . Requirement unmet due to - When considering PCAFC eligibility for the ADL of grooming, a [place] must require hands-on assistance with completing both oral hygiene and washing upper body areas each time grooming is completed. Setup or clean-up assistance and supervision or touching assistance are not considered or defined as hands-on assistance and does not meet the PCAFC eligibility criteria for this ADL. Requiring assistance with an ADL only some of the time does not meet the definition of an inability to perform an ADL. If the 's needs with respect to ADLs are met with an assistive device, the individual would not be in need of personal care services based on an inability to perform an ADL. Taken as a whole, the medical documents do not support that the has a functional impairment that would meet the PCAFC eligibility criteria at the threshold that would necessitate a helper to lift, hold or support trunk or limbs in order to complete tasks with the ADL of grooming each time the activity is performed. 3. Bathing: . Requirement unmet due to - When considering PCAFC eligibility for the ADL of bathing, a must require hands-on assistance with washing, rinsing, and drying each time this activity is completed. Setup or clean-up assistance and supervision or touching assistance are not considered or defined as hands-on assistance and does not meet the PCAFC eligibility criteria for this ADL. If the [place]'s needs with respect to ADLs are met with an assistive device, the individual would not be in need of personal care services based on an inability to perform an ADL. Taken as a whole, the medical documents do not support that the [place] has a functional impairment that would meet the PCAFC eligibility criteria at the threshold that would necessitate a helper to lift, hold or support trunk or limbs in order to complete tasks with the ADL of bathing each time the activity is performed. 4. Dressing or undressing oneself: . Requirement unmet due to - When considering PCAFC eligibility for the ADL of dressing, a [place] must require hands-on assistance with dressing or undressing upper body and lower body (does not include footwear) each time dressing or undressing is completed. Setup or clean-up assistance and supervision or touching assistance are not considered or defined as hands-on assistance and does not meet the PCAFC eligibility criteria for this ADL. Requiring assistance with an ADL only some of the time does not meet the definition of an inability to perform an ADL. If the 's needs with respect to ADLs are met with an assistive device, the individual would not be in need of personal care services based on an inability to perform an ADL. Taken as a whole, the medical documents do not support that the has a functional impairment that would meet the PCAFC eligibility criteria at the threshold that would necessitate a helper to lift, hold or support trunk or limbs in order to complete tasks with the ADL of dressing each time the activity is performed. 5. Toileting or attending to toileting: . Requirement unmet due to - When considering PCAFC eligibility for the ADL of toileting, a [place] must require hands-on assistance with adjusting clothes before and after voiding or having a bowel movement, and with maintaining perineal hygiene each time toileting is completed. Setup or clean-up assistance and supervision or touching assistance are not considered or defined as hands-on assistance and does not meet the PCAFC eligibility criteria for this ADL. Requiring assistance with an ADL only some of the time does not meet the definition of an inability to perform an ADL. If the 's needs with respect to ADLs are met with an assistive device, the individual would not be in need of personal care services based on an inability to perform an ADL. Taken as a whole, the medical documents do not support that the has a functional impairment that would meet the PCAFC eligibility criteria at the threshold that would necessitate a helper to lift, hold or support trunk or limbs in order to complete tasks with the ADL of toileting each time the activity is performed. 6. Adjusting any specific prosthetic or orthopedic appliance, that by reason of the particular disability, cannot be done without assistance (this does not include the adjustment of appliances that nondisabled persons would be unable to adjust without aid, such as supports, belts, lacing at the back, etc.): . Requirement unmet due to - When considering [facility] eligibility for adjusting any special prosthetic or orthopedic appliance, that by reason of the particular disability, cannot be done without assistance, a [place] must require hands-on assistance with prosthetic or orthopedic devices that the person must don on and/or off that replaces or supports a body part or function of a body part. This does not include adaptive equipment, durable medical equipment. or assistive devices used to support ambulation, e.g., a walker. Setup or clean-up assistance and supervision or touching assistance are not considered or defined as hands-on assistance and does not meet the PCAFC eligibility criteria for this ADL. Requiring assistance with an ADL only some of the time does not meet the definition of an inability to perform an ADL. Taken as a whole, the medical documents do not support that the has a functional impairment that would meet the PCAFC eligibility criteria at the threshold that would necessitate a helper to lift, hold or support trunk or limbs in order to complete tasks with the ADL of adjusting any special prosthetic or orthopedic appliance that replaces or supports a body part or function of a body part each time the activity is performed. 7. Mobility (walking, going up stairs, transferring from bed to chair, etc.): . Requirement unmet due to - When considering [facility] eligibility for the ADL of mobility (walking, going up stairs, transferring from bed to chair, etc.) a [place] must require hands-on assistance each time the activities involved in mobility are performed. Setup or clean-up assistance and supervision or touching assistance are not considered or defined as hands-on assistance and does not meet the PCAFC eligibility criteria for this ADL. Requiring assistance with an ADL only some of the time does not meet the definition of an inability to perform an ADL. If the [place]'s needs with respect to ADLs are met with an assistive device, the individual would not be in need of personal care services based on an inability to perform an ADL. Taken as a whole, the medical documents do not support that the has a functional impairment that would meet the PCA eligibility criteria at the threshold that would necessitate a helper to lift, hold or support trunk or limbs in order to complete tasks with the ADL of mobility each time the activity is performed. o The [place] applicant has a need for supervision or protection based on symptoms or residual of neurological or other impairment or injury: . Requirement unmet due to - When considering [facility] eligibility for a need for supervision or protection based on symptoms or residuals of neurological or other impairment or injury, we take into consideration documentation of medical, neurocognitive, and/or psychiatric conditions which resulted in functional impairments requiring supervision or protection. [place] is capable of self- preservation and self-direction (has the judgment and ability to cope, can make appropriate decisions, can identify his own needs, and can provide and/or arrange for his or her own safety. Taken together, we did not find objective documentation of medical, neurocognitive, or psychiatric symptoms causing functional impairments at program threshold to require supervision or protection. Therefore, we found that you did not meet eligibility criteria for a need for supervision or protection based on symptoms or residuals of neurological or other impairment or injury. o The applicant has a need for regular or extensive instruction or supervision without which the ability of the [place] to function in daily life would be seriously impaired: . Requirement unmet due to - When considering [facility] eligibility for a need for regular or extensive supervision or instruction, we take into consideration documentation of functional impairments impacting daily life, including the frequency and severity of need for in-person supervision or instruction. [place] is capable of self-preservation and self-direction (has the judgment and ability to cope, can make appropriate decisions, can identify his own needs, and can provide and/or arrange for his or her own safety. Taken together, we did not find objective documentation of functional impairments that met the threshold of [facility] eligibility criteria that demonstrated that you required supervision or instruction. As such, we determined that you did not need regular or extensive instruction or supervision without which your ability to function in daily life would be seriously impaired, and thus were found ineligible for this criterion. * The applicant receives care at home or will do so if [place] designates a Family Caregiver. o Requirement met due to the applicant receives care at home or will do so if [place] designates a Family Caregiver. * The [place] applicant receives ongoing care from a primary care team or will do so if [place] designates a Family Caregiver. Primary care team means one or more medical practice administrator who care for a patient based on the clinical needs of the patient. Primary care teams must include a [place] primary care provider who is a physician, advanced practice nurse, or a physician certified medical technician assistant. o Requirement met due to the applicant receives ongoing care from a primary care team that includes a [place] primary care provider or will do so if [place] designates a Family Caregiver. FAMILY CAREGIVER FINDINGS * The Family Caregiver applicant resides in a State. The term State means each of the several States, Territories, and possessions of the [place], the [place], and the [facility]. o Requirement met due to the Family Caregiver applicant residing in a State . * The Family Caregiver applicant is the eligible 's spouse, son, daughter, parent, stepfamily member, extended family member, or someone who lives with the eligible full-time or will do so if designated as a Family Caregiver. o Requirement met due to the Family Caregiver is a spouse, son, daughter, parent, stepfamily member, extended family member, or someone who lives with the eligible full-time or will do so if designated as a Family Caregiver. * The Family Caregiver applicant is 18 years of age or older. o Requirement met due to the Family Caregiver applicant is 18 years of age or older. * There is no determination by VA of abuse or neglect of the eligible [place] by the Family Caregiver applicant. o Requirement met due to there has been no determination by VA of abuse or neglect of the eligible [place] by the Family Caregiver applicant. REQUIREMENTS NOT FULLY EVALUATED Eligibility for PCAFC requires a multistep evaluation process. Once a requirement is determined to be unmet, the evaluation concludes, and a decision is issued. The evaluation process concluded and the full spectrum of evaluations necessary to approve and designate a Family Caregiver were not completed. The following additional requirements were not fully evaluated and would require evaluation prior to approval and designation of a Family Caregiver: * It is in the best interest of the applicant to participate in the program. In the best interest is a clinical determination that participation in the program is likely to be beneficial to the . Such determination includes consideration, by a clinician, of whether participation in the program: o Significantly enhances the 's ability to live safely in a home setting; o Supports the [place]'s potential progress in rehabilitation, if such potential exists; o Increases the [place]'s potential independence, if such potential exists; and/or o Creates an environment that supports the health and well-being of the . * The personal care services that would be provided by the Family Caregiver applicant will not be simultaneously and regularly provided by or through another individual or entity. * Your Family Caregiver applicant has not completed caregiver training and demonstrated the ability to carry out the specific personal care services, core competencies, and additional care requirements. Your Family Caregiver applicant has not participated in a home-care assessment which assesses your well-being, the well-being of your caregiver, as well as their competence to provide personal care services at your home. HOW TO OBTAIN OR ACCESS INFORMATION USED IN MAKING THIS DECISION You may request a copy of the evidence we used to make our decision the following ways. If you utilize [employer], you may access your records through that system. You may also request a copy of your records by submitting a signed and completed VA Form [id number], Individuals' Request for a Copy of Their Own Health Information, to the Jacquard Card Lacer at your local [place] medical facility. VA Form [id number] can be found at www.va.gov/vaforms/medical/p df/VHA% 20Form%5345a%20Fill-rev ision.pdf. WHAT TO DO IF YOU DISAGREE WITH THE DECISION If you disagree with this decision, you have the right to request [facility] (A) review, or appeal to the Board of Veterans' Appeals (Board). Your options for doing so are described in the attached VA Form 10305, Your Rights to Seek Further Review of PCAFC Decisions. OTHER VA SERVICES AND PROGRAMS TO SUPPORT CAREGIVERS PCAFC is just one way [place] supports caregivers. Program of General Caregiver Support Services (PGCSS) Caregivers not eligible for PCAFC may be eligible to participate in PGCSS, which is a separate program under the VA Caregiver Support Program. PGCSS provides: * Caregiver skills training and education, both online and in-person * Coaching, supportive counseling and support groups * Peer Support Mentoring * Information on and referrals to VA and community resources There is no application needed for PGCSS. For more information about PGCSS, please contact your local [place] Caregiver Support Program or visit the VA Caregiver Support Program's website at www.caregiver.va.gov. [place] [facility] ([facility]) [facility] offers a variety of programs to support Veterans and caregivers, including services in the home and in the community. Please visit the GE website at www.va.gov/GERIATRICS for information on all [facility] services and additional resources. [place] [facility] [place] [facility] serves as the foundation of [facility] ([facility]) health care and is the first point of contact with the health care system for Veterans enrolled in [facility]. If you are interested in learning about any VA resources, please speak with your Patient Aligned Care Team (PACT) Director Of Photography or Primary Care provider for more information or assistance with a referral. If you have any questions about this letter or other matters, please contact the local [place]'s Caregiver Support Program (phone number enclosed) or visit the Caregiver Support Program's website at www.caregiver.va.gov. Sincerely, Caregiver Support Program Team ENCLOSURES: * Local [place] Medical Center Contact Information * Program of Comprehensive Assistance for Family Caregivers Eligibility Criteria Fact Sheet * VA FORM 10-305 Your Rights to seek Further Review of Program of Comprehensive Assistance for Family Caregivers (PCAFC) Decisions * Changes to Review and Appeal Options for PCAFC Decisions FAQs * Other: CC: Maria C Gomez /inge/ CURLY KOTHARI RED LEAD BURNER Signed: 11/24/2023 12:49 Receipt Acknowledged By: 11/24/2023 12:53 /inge/ GISELLA MAYA MOTION PICTURE DIRECTOR 11/25/2023 15:21 /inge/ REBEKAH ROWE --- Original Document --- 11/24/23 CSP PCAFC CEAT REVIEW CONSULT: Centralized Eligibility and Appeals Team (CEAT) Review Note The Centralized Eligibility and Appeals Team is responsible for dispositioning initial and ongoing eligibility determinations, to include level of care, as well as appeal determinations within the Caregiver Support Program's (CSP) Program of Comprehensive Assistance for Family Caregivers (PCAFC). PCAFC is a clinical program involving initial assessment and periodic reassessment for continued eligibility based on the needs of the eligible and/or Family Caregivers. Decisions to discontinue an individual's participation may be impacted by changes in the [place] and/or Family Caregiver(s)' circumstances, changes in needs or abilities, or VA may seek to discharge a participant due to failure to meet expectations or otherwise adhere to the intent of the program. Date of CEAT Review: Oct Full Name: GAMAL GOMEZ SSN: [id number] Date of : Aug Address: [address] [place] [address] Phone number: PATIENT PHONE - Reasons for CEAT review: Initial Application Review and at least one Family Caregiver applicant have submitted a valid application for the PCAFC. 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 Yes 3) The individual is in need of personal care services for a minimum of six continuous months based on any one of the following: An inability to perform an activity of daily living - No or A need for supervision, protection, or instruction - No (ii) a need for supervision or protection based on symptoms or residuals of neurological or other impairment or injury; - No (iii) a need for regular or extensive instruction or supervision without which the ability of the to function in daily life would be seriously impaired. - No *In need of personal care services means that the eligible [place] requires in-person personal care services from another person, and without such personal care services, alternative in-person caregiving arrangements (including respite care or assistance of an alternative caregiver) would be required to support the eligible [place]'s safety. *Personal Care Services means care or assistance of another person necessary in order to support the eligible [place]'s health and well-being, and perform personal functions required in everyday living ensuring the eligible [place] remains safe from hazards or dangers incident to his or her daily environment. No- was not found eligible for PCAFC and family caregiver was not designated. 4) It is in the best interest of the individual to participate in the program. *In the best interest means a clinical determination that participation in PCAFC is likely to be beneficial to the or patient services coordinator. Such determination will include consideration, by a clinician, of whether participation in the program significantly enhances the [place]'s or patient services coordinator's ability to live safely in a home setting, supports the [place]'s or patient services coordinator's potential progress in rehabilitation, if such potential exists, increases the [place]'s or patient services coordinator's potential independence, if such potential exists, and creates an environment that supports the health and well-being of the [place] or patient services coordinator. No- was not found eligible for PCAFC and family caregiver was not designated. 5) Personal care services that would be provided by the Family Caregiver will not be simultaneously and regularly provided by or through another individual or entity. No-[place] was not found eligible for PCAFC and family caregiver was not designated. 6)The individual receives care at home or will do so if [place] designates a Family Caregiver. Yes 7) The individual receives ongoing care from a primary care team or will do so if VA designates a Family Caregiver. *Primary care team means one or more medical practice administrator who care for a patient based on the clinical needs of the patient. Primary care teams must include a [place] primary care provider who is a physician, advanced practice nurse, or a physician certified medical technician assistant. Yes-The was receiving ongoing care from a [place] primary care team at the time of the application. CAREGIVER REQUIREMENTS Primary Family Caregiver applicant Primary Family Caregiver applicant name: Maria C Bobby 1) Is the Primary Family Caregiver applicant 18 years of age or older? Yes 2) Is the Primary Family Caregiver applicant a family member or will live with the if designated as a Family Caregiver? Yes Relationship to [place]: spouse Residence of applicant: [address] [place] [phone] 3) Is there a determination by [place] of abuse or neglect of the by the Primary Family Caregiver applicant? No PROGRAM PARTICIPATION REQUIREMENTS 1)The application process is completed within 90 days. Yes 2) The [place] or patient services coordinator resides in a State, defined as each of the several States, Territories, and [facility] of the [place], the district [facility], and the [facility]. Yes DETERMINATION SECTION Denied - The [place] and Family Caregiver applicant have been found not eligible for the Program of Comprehensive Assistance for Family Caregivers. - or patient services coordinator does not require personal care services for a minimum of 6 continuous months based on an inability to perform an ADL and/or a need for supervision, protection or instruction: (i) an inability to perform one or more activities of daily living; (ii) a need for supervision or protection based on symptoms or residuals of neurological or other impairment or injury; (iii) a need for regular or extensive instruction or supervision without which the ability of the to function in daily life would be seriously impaired. Centralized Eligibility and Appeals Team summary of determination: Mr. Gomez is a 78-year-old 100% service-connected [employer] [place]. and his spouse, Maria C Gomez, age 70, applied for the Program of Comprehensive Assistance for Family Caregivers (PCAFC) on 10/28/2023. Per [employer] 09/22/2023, the [place] is a level G. He does not have a legal guardian/conservator and does not have a VA fiduciary. Feeding - When determining [facility] eligibility for the ADL of eating, a [place] must require hands-on assistance with feeding oneself due to loss of coordination of upper extremities, extreme weakness, inability to swallow, or need for a non-oral means of nutrition bringing food and/or liquid to the mouth every time the activity is performed. VFAI 11/05/2023 indicates that [place] receives set-up/clean-up assistance with feeding. Set-up or clean-up assistance are not considered or defined as hands-on assistance and does not meet the PCAFC eligibility criteria for this ADL. Additionally, per non-[facility] Community Care Consult Result Note OT reassessment 09/13/2023, the [place] is independent with feeding. He was documented to have intact fine motor coordination with both right and left upper extremities. Grooming - When determining [facility] eligibility for the ADL of grooming, a must require hands-on assistance with completing both oral hygiene and washing upper body areas each time grooming is completed. VFAI 11/05/2023 indicates that receives set-up or clean-up assistance with oral care and not applicable for upper body washing. Set-up or clean-up assistance are not considered or defined as hands-on assistance and does not meet the PCAFC eligibility criteria for this ADL. Additionally, per non-[facility] Community Care Consult Result Note OT reassessment 09/13/2023, the is independent with oral care and grooming. He was documented to have intact fine motor coordination with both right and left upper extremities. Bathing - When determining [facility] eligibility for the ADL of bathing, a must require hands-on assistance with washing, rinsing, and drying each time this activity is completed. VFAI 11/05/2023 indicates that [place] receives partial/moderate assistance with bathing. Per non-[facility] Community Care Consult Result Note OT reassessment 09/13/2023, the [place] is modified independent with upper body washing and supervision with lower body washing. Supervision or touch assistance are not considered or defined as hands-on assistance and does not meet the PCAFC eligibility criteria for this ADL. He was also documented to have intact fine and gross motor coordination with both right and left upper extremities. Bilateral upper extremity active range of motion was documented to be within functional limits. Dressing/Undressing - When determining [facility] eligibility for the ADL of dressing, a must require hands-on assistance with completing both upper and lower body dressing or undressing each time the dressing activity is completed. VFAI 11/05/2023 indicates that [place] receives partial/moderate assistance with bathing. Per non-[facility] Community Care Consult Result Note OT reassessment 09/13/2023, the [place] is modified independent with upper body dressing and supervision with lower body dressing. Supervision or touch assistance are not considered or defined as hands-on assistance and does not meet the PCAFC eligibility criteria for this ADL. Per [facility] national training guidance, one must also require both upper and lower body dressing to meeting the criteria for this ADL. [place] was also documented in the OT reassessment to have intact fine and gross motor coordination with both right and left upper extremities. Bilateral upper extremity active range of motion was documented to be within functional limits. Toileting - When determining [facility] eligibility for the ADL of toileting, a must require hands-on assistance with adjusting clothes before and after voiding or having a bowel movement, and with maintaining perineal hygiene each time toileting is completed. VFAI 11/05/2023 indicates that is receives partial/moderate assistance with toileting. Per non-[facility] Community Care Consult Result Note OT reassessment 09/13/2023, the is independent with toileting. He was documented to have intact fine motor coordination with both right and left upper extremities. Bilateral upper extremity active range of motion was documented to be within functional limits. Mobility - When determining [facility] eligibility for the ADL of mobility, a must require hands-on assistance every time the activities involved in mobility are performed. VFAI 11/05/2023 indicates that [place] is independent or receives supervision or touch assistance with transfers. Supervision or touch assistance are not considered or defined as hands-on assistance and does not meet the PCAFC eligibility criteria for this ADL. The [place] is able to walk short distances and uses a wheelchair for longer distances. Per non-[facility] Community Care Consult Result Note OT reassessment 09/13/2023, the [place] was documented to have functional mobility without assistive device within the home environment with supervision/distance supervision and using a cane with close supervision or supervision. Supervision or touch assistance are not considered or defined as hands-on assistance and does not meet the PCAFC eligibility criteria for this ADL. Prosthetics - When determining PCAFC eligibility for the ADL of prosthetics, a [place] must require hands-on assistance every time when adjusting appliances that any person with or without a disability would need assistance with should not be scored (for example, supports, belts, lacing at back, etc.) VFAI 11/05/2023 indicates that did not report using a prosthetic or orthopedic appliance. Taken as a whole, the documents reviewed do not support that the had a functional impairment that requires at least partial/moderate hands-on assistance with ADLs each time the activities were performed for six continuous months. To be considered to have an inability to perform an activity of daily living, requires that a [place] or Servicemember need personal care services each time he or she completes any of the ADLs listed in the definition (e.g., every time the individual is dressing or undressing, bathing, grooming, toileting, etc.). This would exclude Veterans and Servicemembers who need help completing an ADL only some of the time the ADL is completed (e.g., the individual needs help with dressing or undressing only when wearing certain types of clothing). The care required under the definition of inability to perform an ADL is hands-on, physical care. For PCA, if the 's needs with respect to ADLs are met with an assistive device, the individual would not need personal care services based on an inability to perform an ADL. When considering PCA eligibility for a need for supervision or protection based on symptoms or residuals of neurological or other impairment or injury, we take into consideration documentation of medical, neurocognitive, and/or psychiatric conditions which resulted in functional impairments requiring supervision or protection. Per VFAI 11/05/2023, the [place] was documented as having the diagnosis of dementia. However, per available record it is documented his problem is listed as confusion . Per [place] Assessment 11/01/2023, the reported he has recent testing that revealed possible delirium related to medical issues but ruled out dementia. Thus, it is unclear if formal diagnosis of dementia has been given to the [place]. Per [place] Assessment 11/01/2023, the [place] reports experiencing some minimal cognitive diminishment, but is generally alert and oriented to person, place and time with better long-term memory and recall. Per non-VA [facility] Community Care Consult Result Note OT reassessment 09/13/2023, the [place] was documented to have intact long-term memory, attention/concentration, auditory comprehension, visual comprehension, self-control, sequencing, coping tools and ability to express his needs. is able to actively participate in his care and make decisions around his care including preferring to get most of his care through non-VA providers (documented in MD note from 07/29/2023). Per VFAI 11/05/2023 and in review of the record as a whole, the [place] is able to identify his own needs and provide or arrange for them as needed. In total, records indicate that [place]'s cognition and mental health are relatively stable without documented safety or behavioral issues requiring caregiver intervention. As such, we found that does not meet PCAFC criteria to require supervision or protection as defined by 38 U.S.C 1720G(a)(2) (C)(ii) due to symptoms or residuals of a neurological or other impairment or injury. When considering PCAFC eligibility for a need for regular or extensive supervision or instruction, we take into consideration documentation of functional impairments impacting daily life, including the frequency and severity of need for in-person other supervision or instruction. As noted above, per VFAI 11/05/2023, the was documented as having the diagnosis of dementia. However, per available record it is documented his problem is listed as confusion . Per Assessment 11/01/2023, the [place] reported he has recent testing that revealed possible delirium related to medical issues but ruled out dementia. Thus, it is unclear if formal diagnosis of dementia has been given to the . Per Assessment 11/01/2023, the reports experiencing some minimal cognitive diminishment, but is generally alert and oriented to person, place and time with better long-term memory and recall. is able to actively participate in his care and make decisions around his care including preferring to get most of his care through non-VA providers (documented in MD note from 07/29/2023). Per non-VA [facility] Community Care Consult Result Note OT reassessment 09/13/2023, the [place] was documented to have intact long-term memory, attention/concentration, auditory comprehension, visual comprehension, self-control, sequencing, coping tools and ability to express his needs. Per VFAI 11/05/2023 and in review of the record as a whole, the is able to identify his own needs and provide or arrange for them as needed. Per VFAI 11/05/2023, the [place] needs reminders for his medication. Medication set up or reminders alone do not reach the threshold for PCAFC program eligibility. also is able to complete his ADLs independently without explicit [id number] instructions from another individual. Taken as a whole, the record supports that the [place] is capable of self-preservation and self-direction (has the judgment and ability to cope, can make appropriate decisions, can identify his own needs, and can provide and/or arrange for his own safety). In total, records indicate that 's cognition and mental health are relatively stable without documented safety or behavioral issues requiring caregiver intervention. As such, we found that the [place] does not meet PCAFC criteria for regular or extensive instruction or supervision without which their ability to function in daily life would be seriously impaired (from 38 U.S.C. 1720G(a)(2)(C)(iii). Supervision or protection and/or regular or extensive instruction or supervision means watching individuals with physical or mental functional impairment that directly impacts the individual's ability to maintain his or her personal safety, as it relates to such things as: self-preservation, safety, and self- direction. For example, requires [id number] instruction or sequencing, wandering out of the home, crossing the street oblivious of traffic, leaving home with a complete stranger, self-injury, delusions, or hallucinations that drive behavior, disorientation or grossly disorganized behavior that interferes with the individual's ability to make reasonable, safe, and timely decisions in the event of an emergency or dangerous situation. Per CSP assessments, [place]'s spouse completes all household tasks and chores. While the VA recognizes that a family member may assist with activities that maintain an individual's quality of life, these are not defined as ADLs per regulations. Examples of such activities included meal preparation, housework, shopping, transportation, laundry services, medication management, and using a telephone or other communication device. Determination: After a review of the available medical records, per CEAT determination, [place] does not meet PCAFC eligibility requirements in effect on July 25, 2020, for personal care services for a minimum of six continuous months based on any one of the following: (i) an inability to perform one or more activities of daily living; or (ii) a need for supervision or protection based on symptoms or residuals of neurological or other impairment or injury; or (iii) a need for regular or extensive instruction or supervision without which the ability of the to function in daily life would be seriously impaired. The author of this note is a member of the interdisciplinary VISN 1 CEAT and is documenting this team decision. The other CEAT members are included as additional signers. /es/ CURLY BOOKER [facility] RED LEAD BURNER Signed: 11/24/2023 12:47 Receipt Acknowledged By: * AWAITING SIGNATURE * GUILLERMO OVALLES 11/25/2023 15:12 /es/ REBEKAH ROWE 11/25/2023 14:02 /es/ BILL BYERS MANAGER CLEANING Clinical Director Of Photography * AWAITING SIGNATURE * HAYLEE BELCHER JOLENE A [place] [facility] Nov 24, 2023 12:41 PM CAREGIVER CERTIFICATE: LOCAL TITLE: [facility] PCAFC CEAT REVIEW CONSULT STANDARD TITLE: CAREGIVER CERTIFICATE DATE OF NOTE: NOV 24, 2023@12:41 ENTRY DATE: NOV 24, 2023@12:42:04 AUTHOR: CURLY BOOKER EXP COSIGNER: URGENCY: STATUS: COMPLETED [facility] PCAFC CEAT REVIEW CONSULT Has ADDENDA Centralized Eligibility and Appeals Team (CEAT) Review Note The Centralized Eligibility and Appeals Team is responsible for dispositioning initial and ongoing eligibility determinations, to include level of care, as well as appeal determinations within the Caregiver Support Program's (CSP) Program of Comprehensive Assistance for Family Caregivers (PCAFC). PCAFC is a clinical program involving initial assessment and periodic reassessment for continued eligibility based on the needs of the eligible [place] and/or Family Caregivers. Decisions to discontinue an individual's participation may be impacted by changes in the and/or Family Caregiver(s)' circumstances, changes in needs or abilities, or VA may seek to discharge a participant due to failure to meet expectations or otherwise adhere to the intent of the program. Date of CEAT Review: Oct Full Name: GAMAL GOMEZ SSN: [id number] Date of : Aug Address: [address] [place] [address] Phone number: PATIENT PHONE - Reasons for CEAT review: Initial Application Review [place] and at least one Family Caregiver applicant have submitted a valid application for the [facility]. 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 Yes 3) The individual is in need of personal care services for a minimum of six continuous months based on any one of the following: An inability to perform an activity of daily living - No or A need for supervision, protection, or instruction - No (ii) a need for supervision or protection based on symptoms or residuals of neurological or other impairment or injury; - No (iii) a need for regular or extensive instruction or supervision without which the ability of the to function in daily life would be seriously impaired. - No *In need of personal care services means that the eligible [place] requires in-person personal care services from another person, and without such personal care services, alternative in-person caregiving arrangements (including respite care or assistance of an alternative caregiver) would be required to support the eligible [place]'s safety. *Personal Care Services means care or assistance of another person necessary in order to support the eligible 's health and well-being, and perform personal functions required in everyday living ensuring the eligible remains safe from hazards or dangers incident to his or her daily environment. No- was not found eligible for PCAFC and family caregiver was not designated. 4) It is in the best interest of the individual to participate in the program. *In the best interest means a clinical determination that participation in PCAFC is likely to be beneficial to the or patient services coordinator. Such determination will include consideration, by a clinician, of whether participation in the program significantly enhances the 's or patient services coordinator's ability to live safely in a home setting, supports the [place]'s or patient services coordinator's potential progress in rehabilitation, if such potential exists, increases the [place]'s or patient services coordinator's potential independence, if such potential exists, and creates an environment that supports the health and well-being of the [place] or patient services coordinator. No- was not found eligible for PCAFC and family caregiver was not designated. 5) Personal care services that would be provided by the Family Caregiver will not be simultaneously and regularly provided by or through another individual or entity. No- was not found eligible for PCAFC and family caregiver was not designated. 6)The individual receives care at home or will do so if [place] designates a Family Caregiver. Yes 7) The individual receives ongoing care from a primary care team or will do so if [place] designates a Family Caregiver. *Primary care team means one or more medical practice administrator who care for a patient based on the clinical needs of the patient. Primary care teams must include a [place] primary care provider who is a physician, advanced practice nurse, or a physician certified medical technician assistant. Yes-The was receiving ongoing care from a [place] primary care team at the time of the application. CAREGIVER REQUIREMENTS Primary Family Caregiver applicant Primary Family Caregiver applicant name: Maria C Bobby 1) Is the Primary Family Caregiver applicant 18 years of age or older? Yes 2) Is the Primary Family Caregiver applicant a family member or will live with the [place] if designated as a Family Caregiver? Yes Relationship to : spouse Residence of applicant: [facility], [place] [phone] 3) Is there a determination by [place] of abuse or neglect of the [place] by the Primary Family Caregiver applicant? No PROGRAM PARTICIPATION REQUIREMENTS 1)The application process is completed within 90 days. Yes 2) The or patient services coordinator resides in a State, defined as each of the several States, Territories, and possessions of the [place], the district of [place], and [facility]. Yes DETERMINATION SECTION Denied - The [place] and Family Caregiver applicant have been found not eligible for the Program of Comprehensive Assistance for Family Caregivers. - or patient services coordinator does not require personal care services for a minimum of 6 continuous months based on an inability to perform an ADL and/or a need for supervision, protection or instruction: (i) an inability to perform one or more activities of daily living; (ii) a need for supervision or protection based on symptoms or residuals of neurological or other impairment or injury; (iii) a need for regular or extensive instruction or supervision without which the ability of the to function in daily life would be seriously impaired. Centralized Eligibility and Appeals Team summary of determination: Mr. Gomez is a 78-year-old 100% service-connected [employer] [place]. and his spouse, Maria C Gomez, age 70, applied for the Program of Comprehensive Assistance for Family Caregivers (PCAFC) on 10/28/2023. Per [employer] 09/22/2023, the [place] is a level G. He does not have a legal guardian/conservator and does not have a VA fiduciary. Feeding - When determining [facility] eligibility for the ADL of eating, a [place] must require hands-on assistance with feeding oneself due to loss of coordination of upper extremities, extreme weakness, inability to swallow, or need for a non-oral means of nutrition bringing food and/or liquid to the mouth every time the activity is performed. VFAI 11/05/2023 indicates that receives set-up/clean-up assistance with feeding. Set-up or clean-up assistance are not considered or defined as hands-on assistance and does not meet the PCAFC eligibility criteria for this ADL. Additionally, per non-VA [facility] Community Care Consult Result Note OT reassessment 09/13/2023, the [place] is independent with feeding. He was documented to have intact fine motor coordination with both right and left upper extremities. Grooming - When determining [facility] eligibility for the ADL of grooming, a [place] must require hands-on assistance with completing both oral hygiene and washing upper body areas each time grooming is completed. VFAI 11/05/2023 indicates that receives set-up or clean-up assistance with oral care and not applicable for upper body washing. Set-up or clean-up assistance are not considered or defined as hands-on assistance and does not meet the PCAFC eligibility criteria for this ADL. Additionally, per non-[facility] Community Care Consult Result Note OT reassessment 09/13/2023, the is independent with oral care and grooming. He was documented to have intact fine motor coordination with both right and left upper extremities. Bathing - When determining [facility] eligibility for the ADL of bathing, a must require hands-on assistance with washing, rinsing, and drying each time this activity is completed. VFAI 11/05/2023 indicates that [place] receives partial/moderate assistance with bathing. Per non-[facility] Community Care Consult Result Note OT reassessment 09/13/2023, the [place] is modified independent with upper body washing and supervision with lower body washing. Supervision or touch assistance are not considered or defined as hands-on assistance and does not meet the PCAFC eligibility criteria for this ADL. He was also documented to have intact fine and gross motor coordination with both right and left upper extremities. Bilateral upper extremity active range of motion was documented to be within functional limits. Dressing/Undressing - When determining [facility] eligibility for the ADL of dressing, a [place] must require hands-on assistance with completing both upper and lower body dressing or undressing each time the dressing activity is completed. VFAI 11/05/2023 indicates that receives partial/moderate assistance with bathing. Per non-[facility] Community Care Consult Result Note OT reassessment 09/13/2023, the is modified independent with upper body dressing and supervision with lower body dressing. Supervision or touch assistance are not considered or defined as hands-on assistance and does not meet the PCAFC eligibility criteria for this ADL. Per PCA national training guidance, one must also require both upper and lower body dressing to meeting the criteria for this ADL. [place] was also documented in the OT reassessment to have intact fine and gross motor coordination with both right and left upper extremities. Bilateral upper extremity active range of motion was documented to be within functional limits. Toileting - When determining [facility] eligibility for the ADL of toileting, a [place] must require hands-on assistance with adjusting clothes before and after voiding or having a bowel movement, and with maintaining perineal hygiene each time toileting is completed. VFAI 11/05/2023 indicates that is receives partial/moderate assistance with toileting. Per non-[facility] Community Care Consult Result Note OT reassessment 09/13/2023, the is independent with toileting. He was documented to have intact fine motor coordination with both right and left upper extremities. Bilateral upper extremity active range of motion was documented to be within functional limits. Mobility - When determining [facility] eligibility for the ADL of mobility, a must require hands-on assistance every time the activities involved in mobility are performed. VFAI 11/05/2023 indicates that is independent or receives supervision or touch assistance with transfers. Supervision or touch assistance are not considered or defined as hands-on assistance and does not meet the PCAFC eligibility criteria for this ADL. The is able to walk short distances and uses a wheelchair for longer distances. Per non-[facility] Community Care Consult Result Note OT reassessment 09/13/2023, the was documented to have functional mobility without assistive device within the home environment with supervision/distance supervision and using a cane with close supervision or supervision. Supervision or touch assistance are not considered or defined as hands-on assistance and does not meet the PCAFC eligibility criteria for this ADL. Prosthetics - When determining [facility] eligibility for the ADL of prosthetics, a must require hands-on assistance every time when adjusting appliances that any person with or without a disability would need assistance with should not be scored (for example, supports, belts, lacing at back, etc.) VFAI 11/05/2023 indicates that did not report using a prosthetic or orthopedic appliance. Taken as a whole, the documents reviewed do not support that the [place] had a functional impairment that requires at least partial/moderate hands-on assistance with ADLs each time the activities were performed for six continuous months. To be considered to have an inability to perform an activity of daily living, requires that a [place] or Servicemember need personal care services each time he or she completes any of the ADLs listed in the definition (e.g., every time the individual is dressing or undressing, bathing, grooming, toileting, etc.). This would exclude Veterans and Servicemembers who need help completing an ADL only some of the time the ADL is completed (e.g., the individual needs help with dressing or undressing only when wearing certain types of clothing). The care required under the definition of inability to perform an ADL is hands-on, physical care. For PCAFC, if the [place]'s needs with respect to ADLs are met with an assistive device, the individual would not need personal care services based on an inability to perform an ADL. When considering PCAFC eligibility for a need for supervision or protection based on symptoms or residuals of neurological or other impairment or injury, we take into consideration documentation of medical, neurocognitive, and/or psychiatric conditions which resulted in functional impairments requiring supervision or protection. Per VFAI 11/05/2023, the was documented as having the diagnosis of dementia. However, per available record it is documented his problem is listed as confusion . Per [place] Assessment 11/01/2023, the [place] reported he has recent testing that revealed possible delirium related to medical issues but ruled out dementia. Thus, it is unclear if formal diagnosis of dementia has been given to the [place]. Per Assessment 11/01/2023, the reports experiencing some minimal cognitive diminishment, but is generally alert and oriented to person, place and time with better long-term memory and recall. Per non-VA [facility] Community Care Consult Result Note OT reassessment 09/13/2023, the [place] was documented to have intact long-term memory, attention/concentration, auditory comprehension, visual comprehension, self-control, sequencing, coping tools and ability to express his needs. is able to actively participate in his care and make decisions around his care including preferring to get most of his care through non-VA providers (documented in MD note from 07/29/2023). Per VFAI 11/05/2023 and in review of the record as a whole, the is able to identify his own needs and provide or arrange for them as needed. In total, records indicate that [place]'s cognition and mental health are relatively stable without documented safety or behavioral issues requiring caregiver intervention. As such, we found that does not meet PCAFC criteria to require supervision or protection as defined by 38 U.S.C 1720G(a)(2) (C)(ii) due to symptoms or residuals of a neurological or other impairment or injury. When considering PCAFC eligibility for a need for regular or extensive supervision or instruction, we take into consideration documentation of functional impairments impacting daily life, including the frequency and severity of need for in-person other supervision or instruction. As noted above, per VFAI 11/05/2023, the [place] was documented as having the diagnosis of dementia. However, per available record it is documented his problem is listed as confusion . Per [place] Assessment 11/01/2023, the reported he has recent testing that revealed possible delirium related to medical issues but ruled out dementia. Thus, it is unclear if formal diagnosis of dementia has been given to the [place]. Per Assessment 11/01/2023, the [place] reports experiencing some minimal cognitive diminishment, but is generally alert and oriented to person, place and time with better long-term memory and recall. [place] is able to actively participate in his care and make decisions around his care including preferring to get most of his care through non-VA providers (documented in MD note from 07/29/2023). Per non-VA [facility] Community Care Consult Result Note OT reassessment 09/13/2023, the was documented to have intact long-term memory, attention/concentration, auditory comprehension, visual comprehension, self-control, sequencing, coping tools and ability to express his needs. Per AI 11/05/2023 and in review of the record as a whole, the is able to identify his own needs and provide or arrange for them as needed. Per AI 11/05/2023, the needs reminders for his medication. Medication set up or reminders alone do not reach the threshold for PCAFC program eligibility. also is able to complete his ADLs independently without explicit abon-bw-nqin instructions from another individual. Taken as a whole, the record supports that the [place] is capable of self-preservation and self-direction (has the judgment and ability to cope, can make appropriate decisions, can identify his own needs, and can provide and/or arrange for his own safety). In total, records indicate that 's cognition and mental health are relatively stable without documented safety or behavioral issues requiring caregiver intervention. As such, we found that the does not meet PCAFC criteria for regular or extensive instruction or supervision without which their ability to function in daily life would be seriously impaired (from 38 U.S.C. 1720G(a)(2)(C)(iii). Supervision or protection and/or regular or extensive instruction or supervision means watching individuals with physical or mental functional impairment that directly impacts the individual's ability to maintain his or her personal safety, as it relates to such things as: self-preservation, safety, and self- direction. For example, requires onzq-ed-qdtt instruction or sequencing, wandering out of the home, crossing the street oblivious of traffic, leaving home with a complete stranger, self-injury, delusions, or hallucinations that drive behavior, disorientation or grossly disorganized behavior that interferes with the individual's ability to make reasonable, safe, and timely decisions in the event of an emergency or dangerous situation. Per CSP assessments, 's spouse completes all household tasks and chores. While the [place] recognizes that a family member may assist with activities that maintain an individual's quality of life, these are not defined as ADLs per regulations. Examples of such activities included meal preparation, housework, shopping, transportation, laundry services, medication management, and using a telephone or other communication device. Determination: After a review of the available medical records, per CEAT determination, does not meet [facility] eligibility requirements in effect on July 25, 2020, for personal care services for a minimum of six continuous months based on any one of the following: (i) an inability to perform one or more activities of daily living; or (ii) a need for supervision or protection based on symptoms or residuals of neurological or other impairment or injury; or (iii) a need for regular or extensive instruction or supervision without which the ability of the to function in daily life would be seriously impaired. The author of this note is a member of the interdisciplinary VISN 1 CEAT and is documenting this team decision. The other CEAT members are included as additional signers. /es/ CURLY BOOKER [facility] [employer] BURNER Signed: 11/24/2023 12:47 Receipt Acknowledged By: 12/05/2023 21:56 /es/ GUILLERMO OVALLES, PHD Psychologist 11/25/2023 15:12 /es/ REBEKAH ROWE 11/25/2023 14:02 /es/ BILL BYERS LCSW Clinical Director Of Photography 11/26/2023 14:38 /es/ Haylee Belcher MBA MS AGPCNP-BC VISN1 CEAT Nurse Practitioner 11/24/2023 ADDENDUM STATUS: COMPLETED Gamal Gomez [address] [facility] [place] [phone] 11/24/2023 Dear Gamal Gomez: Thank you for your interest in the Program of Comprehensive Assistance for Family Caregivers (PCAFC). We have made a decision on your [facility] Form 10-10CG PCAFC application that was received on 10/28/2023. This letter informs you of our decision. It lists the evidence used and reasons for our decision. We have also included information about what to do if you disagree with our decision, and who to contact if you have questions or need assistance. The following individuals were considered during this application review: : Gamal Gomez Primary Family Caregiver Applicant: Maria C Gomez WHAT WE DECIDED The Centralized Eligibility and Appeals Team (CEAT) determined that you and each Family Caregiver identified on VA Form 10-10CG do not meet the current eligibility requirements for PCAFC and your application is denied. EXPLANATION OF DECISION PCAFC eligibility requirements can be found in 38 U.S.C. 1720G, Assistance and Support Services for Caregivers, and 38 C.F.R. Part 71, Caregivers Benefits and Certain Medical Benefits Offered to Family Members of Veterans. For the purposes of this letter, the term means an eligible of the Armed Forces or an eligible manufacturing team member of the Armed Forces who has been found unfit for duty due to a medical condition by their Service's Physical Evaluation Board, and a date of medical discharge has been issued. The term Armed Forces means the active , naval, air, or space service as described in section 101 of title 38, [place] Code. The Program Requirements and Findings section of this letter includes PCAFC eligibility criteria that were evaluated to make this decision. Your denial for PCAFC was based on the determination that one or more applicants did not meet PCAFC eligibility requirements based on one or more of the below reasons: * The [place] applicant is not in need of personal care services for a minimum of six continuous months based on: o an inability to perform an activity of daily living (ADL) o a need for supervision or protection based on symptoms or residuals of neurological or other impairment or injury o a need for regular or extensive instruction or supervision without which the ability of the to function in daily life would be seriously impaired EVIDENCE CONSIDERED TO MAKE THE DECISION We based this decision on the following records: * [facility] Form 10-10CG, Application for the Program of Comprehensive Assistance for Family Caregivers, dated 10/28/2023. * [place] Intake, dated 10/29/2023. * [place] Assessment, dated 11/01/2023. * Functional Assessment, dated 11/05/2023. * Caregiver Assessment, dated 11/01/2023. * Primary Care Collaboration, dated 11/23/2023. * VA Medical Records, dated 07/12/2023-11/24/2023. * Non-VA Medical Records, including [facility] Community [facility] Result Note (OT Reassessment) 09/13/2023. * VA VBA Records, including VBMS code sheet 06/24/2021; DD214. * Other information, including - A summary of the rationale, recommendation, and decision regarding the evidence considered is documented in the [place]'s electronic health record in the CEAT Review Notes. A copy of the evidence used to make our decision can be viewed in the following ways: Medical records can be viewed in [facility] and by requesting a copy of medical records by submitting a signed and completed VA Form [id number], Individuals' request for a copy of their own health information, to the [facility] L[facility] at the local [place] medical facility. PROGRAM REQUIREMENTS AND FINDINGS Below are the program eligibility requirements for Veterans and Family Caregivers for participation in the Program of Comprehensive Assistance for Family Caregivers, with notation if the requirement was met or unmet. FINDINGS Evaluation of initial and ongoing PCAFC eligibility requires comprehensive assessment of the [place] and Family Caregiver(s) or Applicant(s). Over time, the needs and circumstances of Veterans and caregivers change, therefore, an eligible [place] or Family Caregiver's eligibility may also change and will be periodically reassessed as applicable. As a result, certain findings in PCAFC decisions are time specific. In making our determination, we made the following findings as identified in 38 C.F.R. 71.20, Eligible Veterans and Service Members, and 38 C.F.R, 71.25, Approval and Designation of Primary and Secondary Family Caregivers, however; note that any favorable findings are dynamic in nature and apply to circumstances that are subject to change manager time. Thus, in the future, these findings will require re-evaluation. * The applicant is a [place], or a member of the Armed Forces undergoing medical discharge from the Armed Forces. The term means a person who served in the active , naval, air, or space service, and who was discharged or released therefrom under conditions other than dishonorable. The term undergoing medical discharge means the manufacturing team member has been found unfit for duty due to a medical condition by their Service's Physical Evaluation Board, and a date of medical discharge has been issued. o Requirement met due to the applicant is a [place], or a member of the Armed Forces undergoing medical discharge from the Armed Forces. * The [place] applicant has a serious injury incurred or aggravated in the line of duty in the active , naval, or air service. The term serious injury means any service-connected disability that (1) is rated at 70 percent or more by VA; or (2) is combined with any other service-connected disability or disabilities, and a combined rating of 70 percent or more is assigned by VA. o Requirement met due to the incurred or aggravated a serious injury in the line of duty. The has a Single service-connected disability rating of 100% assigned by VA. * The applicant resides in a State. The term State means each of the several States, Territories, and [facility] of the [place], the [place], and the [facility]. o Requirement met due to the [place] applicant residing in [place], [place]. * The [place] applicant is in need of personal care services for a minimum of six continuous months. In need of personal care services means the eligible requires in-person personal care services from another person, and without such personal care services, alternative in-person caregiving arrangements (including respite care or assistance of an alternative caregiver) would be required to support the eligible 's safety. Personal care services means care or assistance of another person necessary in order to support the eligible 's health and well-being, and perform personal functions required in everyday living ensuring the eligible remains safe from hazards or dangers incident to his or her daily environment. o Requirement unmet due to: . The [place] applicant is not in need of personal care services. After a thorough review of your records, there was insufficient evidence to support that you met eligibility criteria for [employer] benefits under 38 U.S.C. ?1720G and 38 C.F.R. ?? 71.15-71.25. * The applicant is in need of personal care services for a minimum of six continuous months based on any one of the following: o An inability to perform an activity of daily living (ADL). Inability to perform an ADL means a [place] requires personal care services each time the applicant completes one or more of the following ADLs: . Requirement unmet 1. Feeding oneself due to loss of coordination of upper extremities, extreme weakness, inability to swallow, or the need for a non-oral means of nutrition: . Requirement unmet due to - When considering [employer] eligibility for the ADL of feeding, a must require hands-on assistance with bringing food and/or liquid to the mouth each time the activity is performed. Setup or clean-up assistance and supervision or touching assistance are not considered or defined as hands-on assistance and does not meet the [employer]FC eligibility criteria for this ADL. Requiring assistance with an ADL only some of the time does not meet the definition of an inability to perform an ADL. If the 's needs with respect to ADLs are met with an assistive device, the individual would not be in need of personal care services based on an inability to perform an ADL. Taken as a whole, the medical documents do not support that the [place] has a functional impairment that would meet the [employer] eligibility criteria at the threshold that would necessitate a helper to lift, hold or support trunk or limbs in order to complete tasks the ADL of feeding each time the activity is performed. 2. Grooming oneself in order to keep oneself clean and presentable: . Requirement unmet due to - When considering [employer] eligibility for the ADL of grooming, a must require hands-on assistance with completing both oral hygiene and washing upper body areas each time grooming is completed. Setup or clean-up assistance and supervision or touching assistance are not considered or defined as hands-on assistance and does not meet the [employer]FC eligibility criteria for this ADL. Requiring assistance with an ADL only some of the time does not meet the definition of an inability to perform an ADL. If the [place]'s needs with respect to ADLs are met with an assistive device, the individual would not be in need of personal care services based on an inability to perform an ADL. Taken as a whole, the medical documents do not support that the has a functional impairment that would meet the [employer] eligibility criteria at the threshold that would necessitate a helper to lift, hold or support trunk or limbs in order to complete tasks with the ADL of grooming each time the activity is performed. 3. Bathing: . Requirement unmet due to - When considering [employer] eligibility for the ADL of bathing, a must require hands-on assistance with washing, rinsing, and drying each time this activity is completed. Setup or clean-up assistance and supervision or touching assistance are not considered or defined as hands-on assistance and does not meet the [employer] eligibility criteria for this ADL. If the [place]'s needs with respect to ADLs are met with an assistive device, the individual would not be in need of personal care services based on an inability to perform an ADL. Taken as a whole, the medical documents do not support that the [place] has a functional impairment that would meet the [employer] eligibility criteria at the threshold that would necessitate a helper to lift, hold or support trunk or limbs in order to complete tasks with the ADL of bathing each time the activity is performed. 4. Dressing or undressing oneself: . Requirement unmet due to - When considering [employer] eligibility for the ADL of dressing, a [place] must require hands-on assistance with dressing or undressing upper body and lower body (does not include footwear) each time dressing or undressing is completed. Setup or clean-up assistance and supervision or touching assistance are not considered or defined as hands-on assistance and does not meet the [employer] eligibility criteria for this ADL. Requiring assistance with an ADL only some of the time does not meet the definition of an inability to perform an ADL. If the 's needs with respect to ADLs are met with an assistive device, the individual would not be in need of personal care services based on an inability to perform an ADL. Taken as a whole, the medical documents do not support that the has a functional impairment that would meet the [employer] eligibility criteria at the threshold that would necessitate a helper to lift, hold or support trunk or limbs in order to complete tasks with the ADL of dressing each time the activity is performed. 5. Toileting or attending to toileting: . Requirement unmet due to - When considering [facility] eligibility for the ADL of toileting, a must require hands-on assistance with adjusting clothes before and after voiding or having a bowel movement, and with maintaining perineal hygiene each time toileting is completed. Setup or clean-up assistance and supervision or touching assistance are not considered or defined as hands-on assistance and does not meet the [employer] eligibility criteria for this ADL. Requiring assistance with an ADL only some of the time does not meet the definition of an inability to perform an ADL. If the 's needs with respect to ADLs are met with an assistive device, the individual would not be in need of personal care services based on an inability to perform an ADL. Taken as a whole, the medical documents do not support that the [place] has a functional impairment that would meet the [employer] eligibility criteria at the threshold that would necessitate a helper to lift, hold or support trunk or limbs in order to complete tasks with the ADL of toileting each time the activity is performed. 6. Adjusting any specific prosthetic or orthopedic appliance, that by reason of the particular disability, cannot be done without assistance (this does not include the adjustment of appliances that nondisabled persons would be unable to adjust without aid, such as supports, belts, lacing at the back, etc.): . Requirement unmet due to - When considering [facility] eligibility for adjusting any special prosthetic or orthopedic appliance, that by reason of the particular disability, cannot be done without assistance, a must require hands-on assistance with prosthetic or orthopedic devices that the person must don on and/or off that replaces or supports a body part or function of a body part. This does not include adaptive equipment, durable medical equipment. or assistive devices used to support ambulation, e.g., a walker. Setup or clean-up assistance and supervision or touching assistance are not considered or defined as hands-on assistance and does not meet the [facility]FC eligibility criteria for this ADL. Requiring assistance with an ADL only some of the time does not meet the definition of an inability to perform an ADL. Taken as a whole, the medical documents do not support that the [place] has a functional impairment that would meet the [employer] eligibility criteria at the threshold that would necessitate a helper to lift, hold or support trunk or limbs in order to complete tasks with the ADL of adjusting any special prosthetic or orthopedic appliance that replaces or supports a body part or function of a body part each time the activity is performed. 7. Mobility (walking, going up stairs, transferring from bed to chair, etc.): . Requirement unmet due to - When considering [facility] eligibility for the ADL of mobility (walking, going up stairs, transferring from bed to chair, etc.) a [place] must require hands-on assistance each time the activities involved in mobility are performed. Setup or clean-up assistance and supervision or touching assistance are not considered or defined as hands-on assistance and does not meet the [facility] eligibility criteria for this ADL. Requiring assistance with an ADL only some of the time does not meet the definition of an inability to perform an ADL. If the 's needs with respect to ADLs are met with an assistive device, the individual would not be in need of personal care services based on an inability to perform an ADL. Taken as a whole, the medical documents do not support that the has a functional impairment that would meet the [employer] eligibility criteria at the threshold that would necessitate a helper to lift, hold or support trunk or limbs in order to complete tasks with the ADL of mobility each time the activity is performed. o The [place] applicant has a need for supervision or protection based on symptoms or residual of neurological or other impairment or injury: . Requirement unmet due to - When [facility] for a need for supervision or protection based on symptoms or residuals of neurological or other impairment or injury, we take into consideration documentation of medical, neurocognitive, and/or psychiatric conditions which resulted in functional impairments requiring supervision or protection. is capable of self- preservation and self-direction (has the judgment and ability to cope, can make appropriate decisions, can identify his own needs, and can provide and/or arrange for his or her own safety. Taken together, we did not find objective documentation of medical, neurocognitive, or psychiatric symptoms causing functional impairments at program threshold to require supervision or protection. Therefore, we found that you did not meet eligibility criteria for a need for supervision or protection based on symptoms or residuals of neurological or other impairment or injury. o The [place] applicant has a need for regular or extensive instruction or supervision without which the ability of the to function in daily life would be seriously impaired: . Requirement unmet due to - When considering [facility] eligibility for a need for regular or extensive supervision or instruction, we take into consideration documentation of functional impairments impacting daily life, including the frequency and severity of need for in-person supervision or instruction. [place] is capable of self-preservation and self-direction (has the judgment and ability to cope, can make appropriate decisions, can identify his own needs, and can provide and/or arrange for his or her own safety. Taken together, we did not find objective documentation of functional impairments that met the threshold of [facility] eligibility criteria that demonstrated that you required supervision or instruction. As such, we determined that you did not need regular or extensive instruction or supervision without which your ability to function in daily life would be seriously impaired, and thus were found ineligible for this criterion. * The [place] applicant receives care at home or will do so if [place] designates a Family Caregiver. o Requirement met due to the applicant receives care at home or will do so if [place] designates a Family Caregiver. * The applicant receives ongoing care from a primary care team or will do so if [place] designates a Family Caregiver. Primary care team means one or more medical practice administrator who care for a patient based on the clinical needs of the patient. Primary care teams must include a VA primary care provider who is a physician, advanced practice nurse, or a physician certified medical technician assistant. o Requirement met due to the [place] applicant receives ongoing care from a primary care team that includes a [place] primary care provider or will do so if [place] designates a Family Caregiver. FAMILY CAREGIVER FINDINGS * The Family Caregiver applicant resides in a State. The term State means each of the several States, Territories, and possessions of the [place], the [place], and the [facility]. o Requirement met due to the Family Caregiver applicant residing in a State . * The Family Caregiver applicant is the eligible 's spouse, son, daughter, parent, stepfamily member, extended family member, or someone who lives with the eligible [place] full-time or will do so if designated as a Family Caregiver. o Requirement met due to the Family Caregiver is a spouse, son, daughter, parent, stepfamily member, extended family member, or someone who lives with the eligible [place] full-time or will do so if designated as a Family Caregiver. * The Family Caregiver applicant is 18 years of age or older. o Requirement met due to the Family Caregiver applicant is 18 years of age or older. * There is no determination by VA of abuse or neglect of the eligible by the Family Caregiver applicant. o Requirement met due to there has been no determination by VA of abuse or neglect of the eligible by the Family Caregiver applicant. REQUIREMENTS NOT FULLY EVALUATED Eligibility for [facility] requires a multistep evaluation process. Once a requirement is determined to be unmet, the evaluation concludes, and a decision is issued. The evaluation process concluded and the full spectrum of evaluations necessary to approve and designate a Family Caregiver were not completed. The following additional requirements were not fully evaluated and would require evaluation prior to approval and designation of a Family Caregiver: * It is in the best interest of the [place] applicant to participate in the program. In the best interest is a clinical determination that participation in the program is likely to be beneficial to the . Such determination includes consideration, by a clinician, of whether participation in the program: o Significantly enhances the [place]'s ability to live safely in a home setting; o Supports the 's potential progress in rehabilitation, if such potential exists; o Increases the [place]'s potential independence, if such potential exists; and/or o Creates an environment that supports the health and well-being of the . * The personal care services that would be provided by the Family Caregiver applicant will not be simultaneously and regularly provided by or through another individual or entity. * Your Family Caregiver applicant has not completed caregiver training and demonstrated the ability to carry out the specific personal care services, core competencies, and additional care requirements. Your Family Caregiver applicant has not participated in a home-care assessment which assesses your well-being, the well-being of your caregiver, as well as their competence to provide personal care services at your home. HOW TO OBTAIN OR ACCESS INFORMATION USED IN MAKING THIS DECISION You may request a copy of the evidence we used to make our decision the following ways. If you utilize [employer], you may access your records through that system. You may also request a copy of your records by submitting a signed and completed VA Form [id number], Individuals' Request for a Copy of Their Own Health Information, to the Jacquard Card Lacer at your local [place] medical facility. VA Form [id number] can be found at www.va.gov/vaforms/medical/p df/VHA% 20Form%[id number]-rev ision.pdf. WHAT TO DO IF YOU DISAGREE WITH THE DECISION If you disagree with this decision, you have the right to request [facility] ([facility]) review, or appeal to the Board of Veterans' Appeals (Board). Your options for doing so are described in the attached VA Form 10-305, Your Rights to Seek Further Review of [facility] Decisions. OTHER VA SERVICES AND PROGRAMS TO SUPPORT CAREGIVERS [facility] is just one way [place] supports caregivers. Program of General Caregiver Support Services (PGCSS) Caregivers not eligible for [facility] may be eligible to participate in PGCSS, which is a separate program under the VA Caregiver Support Program. PGCSS provides: * Caregiver skills training and education, both online and in-person * Coaching, supportive counseling and support groups * Peer Support Mentoring * Information on and referrals to VA and community resources There is no application needed for PGCSS. For more information about PGCSS, please contact your local VA Caregiver Support Program or visit the VA Caregiver Support Program's website at www.caregiver.va.gov. [place] [facility] (GE) [facility] offers a variety of programs to support Veterans and caregivers, including services in the home and in the community. Please visit the [facility] website at www.va.gov/GERIATRICS for information on all [facility] services and additional resources. [facility] [place] [facility] serves as the foundation of [facility] ([facility]) health care and is the first point of contact with the health care system for Veterans enrolled in [facility]. If you are interested in learning about any VA resources, please speak with your Patient Aligned Care Team (PACT) Director Of Photography or Primary Care provider for more information or assistance with a referral. If you have any questions about this letter or other matters, please contact the local [place]'s Caregiver Support Program (phone number enclosed) or visit the Caregiver Support Program's website at www.caregiver.va.gov. Sincerely, Caregiver Support Program Team ENCLOSURES: * Local [place] Medical Center Contact Information * Program of Comprehensive Assistance for Family Caregivers Eligibility Criteria Fact Sheet * VA FORM 10-305 Your Rights to seek Further Review of Program of Comprehensive Assistance for Family Caregivers (PCAFC) Decisions * Changes to Review and Appeal Options for [facility]FC Decisions FAQs * Other: CC: Maria C Gomez /inge/ CURLY BOOKER [facility] [employer] BURNER Signed: 11/24/2023 12:49 Receipt Acknowledged By: 11/24/2023 12:53 /es/ GISELLA MAYA MOTION PICTURE DIRECTOR 11/25/2023 15:21 /es/ CURLY BROWN [facility]
--- OUTSIDE RECORDS SUMMARY | 2024-10-17 15:28 | XMS_ITS ---
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 Organization [facility] Address [address] [place] [address] Care Team Providers Care Call Center Receptionist Name Role Phone GURPREET PEREZ Primary Care [...] Harding's Name Patient's Relationship to Policy Harding [facility] (WNR) MEDICARE ADVANTAGE [facility] (WNR) Oct 25, 2011 [facility] [id number] PATIENT Selected Encounter This section includes the information on record at [place] for the Encounter. Date/Time Encounter Type Encounter Description Reason Pro vider Source Nov 29, 2023 12:00 AM Outpatient Encounter [facility] [...] 08, 2023 08:00 AM [facility]UL[facility] Feb 05, 2024 08:00 AM AMBULATORY - MEDIC[facility] February 25, 2024 02:00 PM [facility] Mar 30, 2024 10:00 AM [facility] May 12, 2024 11:30 AM AMBULATORY - REHAB MEDICIN E [facility] Social History: Smoking Status (Most [...] 2023 08:58 AM VA-TOBACCO FORMER USER [facility] Tobacco Use History This section includes a history of the smoking, or tobacco-related health factors, that were collected on or before the date of the Encounter. The data comes from the [place] facility where the Encounter took place. Date/Time Smoking Status/Tobacco Use Comment F acility Jun 03, 2023 08:58 AM [place]-TOBAC[place] QUIT 15 YRS OR MORE [facility] Advance Directives: All historical and [...] 30, 2019 ADVANCE DIRECTIVE CASSIE POWELL [facility] Encounter Notes: All associated encounter notes This section contains the clinical notes associated to the Encounter. Date/Time Encounter Note(s) Provider Source Nov 29, 2023 12:00 AM NONVA CONSULT: LOCAL TITLE: COMMUNITY CARE-CONSULT RESULT NOTE STANDARD TITLE: NONVA CONSULT DATE OF NOTE: NOV 29, 2023 ENTRY DATE: JAN 04, 2024@07:17:51 AUTHOR: BERNARD CABEZAS [place] COSIGNER: URGENCY: STATUS: COMPLETED VistA Imaging - Scanned Document SCANNED DOCUMENT SIGNATURE NOT REQUIRED Electronically Filed: 01/04/2024 by: BERNARD CABEZAS FIELD CANE SCALER BERNARD CABEZAS [place] [facility]
--- OUTSIDE RECORDS SUMMARY | 2024-10-17 15:28 | XMS_ITS | Encounter Summary ---
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 Affairs ([place]) Organization [place] Address [address] [place] [address] Care Team Providers Care Mortgage Loan Counselor Name Role Phone GURPREET PEREZ Primary Care [...] [facility] (WNR) MEDICARE ADVANTAGE [facility] (WNR) Oct 25, 2011 [facility] [id number] GOMEZ PATIENT Selected Encounter This section includes the information on record at [place] for the Encounter. Date/Time Encounter Type Encounter [...] 20 appointments. The data comes from all [facility]. Appointment Date/Time Appointment Type Appointme nt Facility Name Dec 08, 2023 08:00 AM AMBULATORY - MEDICINE [place] [facility] Feb 05, 2024 08:00 AM AMBULATORY - MEDICINE IN [place] [facility] February 25, 2024 02:00 PM AMBULATORY - REHAB MEDICIN E [place] [facility] Mar 30, 2024 10:00 AM AMBULATORY - REHAB MEDICIN E [place] [facility] May 12, 2024 11:30 AM [facility]BUL[facility] Active, Pending, and Scheduled Orders This section includes a listing of several types of active, pending, and scheduled orders, including clinic medications orders, diagnostic test orders, procedure orders and consult orders; where the start date of the order is 45 days before the date of the Encounter or 45 days after the date of theEncounter. The data comes from all [facility]. Test Date/Time Test Type Test Details Facility Name Oct 08, 2023 12:00 AM Laboratory - Chemi stry Order BASIC METABOLIC PANEL (fasting) BLOOD (SST-SERUM) [facility] Oct 08, 2023 12:00 AM Laboratory - Chemi stry Order LIPID PANEL FASTING BLOOD (SST-SERUM) [facility] Oct 08, 2023 12:00 AM Laboratory - Chemi stry Order LIVER FUNCTION BLOOD (SST-SERUM) [facility] Oct 08, 2023 12:00 AM Laboratory - Chemi stry Order HEMOGLOBIN A1C PANEL BLOOD (LAV-BLOOD) [facility] Oct 08, 2023 12:00 AM Laboratory - Chemi stry Order CBC AND DIFF (AUTO) BLOOD (LAV-BLOOD) [facility] Oct 08, 2023 12:00 AM Laboratory - Chemi stry Order TSH BLOOD (SST-SERUM) [facility] Social History: Smoking Status (Most current) and Tobacco Use (All prior to encounter date) This section includes the most current, and the historical, smoking and tobacco- related health factors from the [place] facility where the Encounter took place. Current Smoking Status This section includes the most current smoking, or tobacco-related health factor, from the [place] facility where the Encounter took place. Date/Time Current Smoking Status Comment Facil ity Jun 03, 2023 08:58 AM VA-TOBACCO FORMER USER [facility] Tobacco Use History This section includes a history of the smoking, or tobacco-related health factors, that were collected on or before the date of the Encounter. The data comes from the [place] facility where the Encounter took place. Date/Time Smoking Status/Tobacco Use Comment F acility Jun 03, 2023 08:58 AM [place]-TOBACCO QUIT 15 YRS OR MORE [facility] Advance Directives: All historical and current Section Date Range: From patient's date of to the date document was created. This section includes ALL of a patient's completed or amended [place] Advance and Rescinded Directives. The entries below indicate that a directive exists for the patient, but an actual copy is not included with this document. The data comes from all [place] facilities. Date Advance Directives Provider Source Jul 15, 2023 ADVANCE DIRECTIVE ROGER PEDRAZA Jun 30, 2019 ADVANCE DIRECTIVE CASSIE POWELL [facility] Encounter Notes: All associated encounter notes This section contains the clinical notes associated to the Encounter. Date/Time Encounter Note(s) Provider Source Nov 22, 2023 12:00 AM NONVA CONSULT: LOCAL TITLE: COMMUNITY CARE-CONSULT RESULT NOTE STANDARD TITLE: NONVA CONSULT DATE OF NOTE: NOV 22, 2023 ENTRY DATE: DEC 14, 2023@13:43:52 AUTHOR: JERRY JIANG EXP COSIGNER: URGENCY: STATUS: COMPLETED VistA Imaging - Scanned Document SCANNED DOCUMENT SIGNATURE NOT REQUIRED Electronically Filed: 12/14/2023 by: JERRY BUNN [facility]
--- OUTSIDE RECORDS SUMMARY | 2024-10-17 15:28 | XMS_ITS ---
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 Organization Department [place] Address [address] [place] [address] Care Team Providers Care Paratransit Operator Name Role Phone GURPREET PEREZ Primary [...] [facility] (WNR) Oct 25, 2011 [facility] [id number]OMEZ PATIENT Selected Encounter This section includes the information on record at [place] for the Encounter. Date/Time Encounter Type Encounter Description Reason Pro vider Source Dec 27, 2023 02:45 PM Outpatient Encounter ADMIN PAT ACTIVTIES (MASNONCT) IHE Encounter Template Text not used by [place] Plan of Treatment: Future Appointments (+ 6 [...] 05, 2024 08:00 AM AMBULATORY - MEDICINE [place] [facility] February 25, 2024 02:00 PM AMBULAT[facility] - [facility] Mar 30, 2024 10:00 AM AMBULATORY - [facility] May 12, 2024 11:30 AM AMBULATORY - [facility]AB [facility] Jun 05, 2024 08:00 AM AM[facility]ULATORY - [facility]ICINE [place] [facility] Jun 13, 2024 10:00 AM AMBULATORY - REHAB MEDICIN E [facility] Social History: Smoking Status (Most current) [...] 2023 08:58 AM VA-TOBACCO FORMER USER [facility] Tobacco Use History This section includes a history of the smoking, or tobacco-related health factors, that were collected on or before the date of the Encounter. The data comes from the [place] facility where the Encounter took place. Date/Time Smoking Status/Tobacco Use Comment F acility Jun 03, 2023 08:58 AM [place]-TOBACCO QUIT 15 YRS OR MORE [facility] Advance Directives: All historical and current [...] Jun 30, 2019 ADVANCE DIRECTIVE [facility] Encounter Notes: All associated encounter notes This section contains the clinical notes associated to the Encounter. Date/Time Encounter Note(s) Provider Source Dec 27, 2023 02:45 PM ADMINISTRATIVE NOT E: LOCAL TITLE: CCC: SCHEDULING ADMINISTRATION STANDARD TITLE: ADMINISTRATIVE NOTE DATE OF NOTE: DEC 27, 2023@14:45:44 ENTRY DATE: DEC 27, 2023@14:45:45 AUTHOR: GORGE GLASGOW COSIGNER: URGENCY: STATUS: COMPLETED Patient Demographics Patient Name: FATEMEH GOMEZ Patient Primary Phone: [phone] Patient Primary [address]: [address] [place] [address] Patient : 1945 Patient Age: 78 Call Back Number: [phone] Caller/Recipient Relation to Patient: Other If Other Describe Relation to Patient: home care nurse Caller Name: Analy Administrative Administrative Note Reason: Home Health / [facility] Administrative Note Comments: Pt took a fall outside yesterday but others around him were able to lessen the impact. He did not hit his head but did scratch his knee. /inge/ GORGE KRUSE 1 EVELYN AMSA Signed: 12/27/2023 14:45 Receipt Acknowledged By: 12/28/2023 11:42 /es/ YI BLANCHARD RN REGISTERED NURSE 01/12/2024 09:30 /es/ RUDY COCHRAN LPN, LOIS E [facility]
--- OUTSIDE RECORDS SUMMARY | 2024-10-17 15:28 | XMS_ITS | Encounter Summary ---
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 Affairs [place]) Organization Department [place] Address [address] [place] [address] Care Team Providers Care Administrative Project Coordinator Name Role Phone GURPREET PEREZ Primary [...] Policy Harding [facility] PLAN [facility] (WNR) MEDICARE ADVANTAGE [facility] (WNR) Oct 25, 2011 [facility] [id number] GOMEZ PATIENT Selected Encounter This section includes the information on record at [place] for the Encounter. Date/Time Encounter Type Encounter Description Reason Pro vider Source Dec 13, 2023 12:00 AM Outpatient Encounter COMMUNITY CARE [...] 05, 2024 08:00 AM [facility] February 25, 2024 02:00 PM AMBULATORY - REHAB MEDICIN E [place] [facility] Mar 30, 2024 10:00 AM AMBULATORY - REHAB MEDICIN E [facility] May 12, 2024 11:30 AM AMBULATORY - REHAB MEDICIN E [facility] Jun 05, 2024 08:00 AM [facility]ULAT[facility] Social History: Smoking Status (Most [...] [place]-TOBACCO QUIT [facility] YRS [facility] 30, 2019 ADVANCE DIRECTIVE CASSIE POWELL [facility] Encounter Notes: All associated encounter notes This section contains the clinical notes associated to the Encounter. Date/Time Encounter Note(s) Provider Source Dec 13, 2023 12:00 AM NONVA CONSULT: LOCAL TITLE: COMMUNITY CARE-CONSULT RESULT NOTE STANDARD TITLE: NONVA CONSULT DATE OF NOTE: DEC 13, 2023 ENTRY DATE: JAN 03, 2024@10:22:53 AUTHOR: BERNARD CABEZAS MA COSIGNER: URGENCY: STATUS: COMPLETED VistA Imaging - Scanned Document SCANNED DOCUMENT SIGNATURE NOT REQUIRED Electronically Filed: 01/03/2024 by: BERNARD CABEZAS SUPPLY CATALOGUER BERNARD CABEZAS [facility]
--- OUTSIDE RECORDS SUMMARY | 2024-10-17 15:28 | XMS_ITS ---
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 ns Affairs [place] Organization Department of [place] Address [address] [place] [address] Care Team Providers Care Dentist Private Practice Name Role Phone GURPREET PEREZ Primary Care [...] Name Patient's Relationship to Policy Harding [facility] PLAN [facility] (WNR) MEDICARE ADVANTAGE [facility] (WNR) Oct 25, 2011 [facility] [id number] [address] GOMEZ PATIENT Selected Encounter This [...] 05, 2024 08:00 AM AMBULATORY - MEDICINE [facility] February 25, 2024 02:00 PM AMBULATORY - REHAB MEDICIN E [facility] Mar 30, 2024 10:00 AM AMBULATORY - REHAB MEDICIN E [facility] May 12, 2024 11:30 AM AMBULATORY - REHAB MEDICIN E [facility] Jun 05, 2024 08:00 AM AMBULATORY - MEDICINE [facility] Jun 13, 2024 10:00 AM AMBULATORY - REHAB MEDICIN E [facility] Social History: Smoking [...] 03, 2023 08:58 AM VA-TOBACCO FORMER USER [facility] Tobacco Use History This section includes a history of the smoking, or tobacco-related health factors, that were collected on or before the date of the Encounter. The data comes from the [place] facility where the Encounter took place. Date/Time Smoking Status/Tobacco Use Comment F acility Jun 03, 2023 08:58 AM [place]-TOBACCO QUIT 15 YRS OR MORE [facility] Advance Directives: All historical and current Section Date Range: From patient's date of to the date document was created. This section includes ALL of a patient's completed or amended [place] Advance and Rescinded Directives. The entries below indicate that a directive exists for the patient, but an actual copy is not included with this document. The data comes from all [place] facilities. Date Advance Directives Provider Source Jul 15, 2023 ADVANCE DIRECTIVE ROGER PEDRAZA Jun 30, 2019 ADVANCE DIRECTIVE CASSIE POWELL [facility] Encounter Notes: All associated encounter notes This section contains the clinical notes associated to the Encounter. Date/Time Encounter Note(s) Provider Source Dec 20, 2023 12:00 AM NONVA CONSULT: LOCAL TITLE: COMMUNITY CARE-CONSULT RESULT NOTE STANDARD TITLE: NONVA CONSULT DATE OF NOTE: DEC 20, 2023 ENTRY DATE: JAN 10, 2024@06:41:05 AUTHOR: JERRY JIANG EXP COSIGNER: URGENCY: STATUS: COMPLETED VistA Imaging - Scanned Document SCANNED DOCUMENT SIGNATURE NOT REQUIRED Electronically Filed: 01/10/2024 by: JERRY BUNN [place] [facility]
--- OUTSIDE RECORDS SUMMARY | 2024-10-17 15:28 | XMS_ITS | Encounter Summary ---
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 Affairs ([place]) Organization Department of [place] Address [address] [place] [address] Care Team Providers Care Airborne Missions Systems Name Role Phone GURPREET PEREZ Primary [...] Patient's Relationship to Policy Harding [facility] PLAN [facility] (WNR) MEDICARE ADVANTAGE [facility] (WNR) Oct 25, 2011 [facility] [id number] FATEM[address] GOMEZ PATIENT Selected Encounter This section includes the information on record at [place] for the Encounter. Date/Time Encounter Type Encounter Description Reason Pro vider Source Nov 24, 2023 12:00 AM Outpatient Encounter COMMUNITY CARE [...] 08, 2023 08:00 AM AM[facility]UL[facility] Feb 05, 2024 08:00 AM AMBULATORY - MEDICINE [place] C NTRL [facility] February 25, 2024 02:00 PM AMBULATORY - [facility]AB [facility]IC[facility] Mar 30, 2024 10:00 AM AMBULATORY - REHAB MEDICIN [facility] May 12, 2024 11:30 AM AMBULATORY - [facility]HAB MEDIC[facility] Social History: Smoking Status [...] 03, 2023 08:58 AM VA-TOBACCO FORMER USER [facility] Tobacco Use History This section includes a history of the smoking, or tobacco-related health factors, that were collected on or before the date of the Encounter. The data comes from the [place] facility where the Encounter took place. Date/Time Smoking Status/Tobacco Use Comment F acility Jun 03, 2023 08:58 AM [place]-TOBACCO QUIT 15 YRS OR MORE [facility] Advance Directives: All historical and [...] Jun 30, 2019 ADVANCE DIRECTIVE CASSIE POWELL [facility] Encounter Notes: All associated encounter notes This section contains the clinical notes associated to the Encounter. Date/Time Encounter Note(s) Provider Source Nov 24, 2023 12:00 AM NONVA CONSULT: LOCAL TITLE: COMMUNITY CARE-CONSULT RESULT NOTE STANDARD TITLE: NONVA CONSULT DATE OF NOTE: NOV 24, 2023 ENTRY DATE: DEC 15, 2023@12:10:58 AUTHOR: JERRY JIANG COSIGNER: URGENCY: STATUS: COMPLETED VistA Imaging - Scanned Document SCANNED DOCUMENT SIGNATURE NOT REQUIRED Electronically Filed: 12/15/2023 by: JERRY BUNN [facility] Nov 24, 2023 12:00 AM NONVA CONSULT: LOCAL TITLE: COMMUNITY CARE-CONSULT RESULT NOTE STANDARD TITLE: NONVA CONSULT DATE OF NOTE: NOV 24, 2023 ENTRY DATE: DEC 15, 2023@12:14:56 AUTHOR: JERRY JIANG COSIGNER: URGENCY: STATUS: COMPLETED VistA Imaging - Scanned Document SCANNED DOCUMENT SIGNATURE NOT REQUIRED Electronically Filed: 12/15/2023 by: JERRY BUNN [facility]
--- OUTSIDE RECORDS SUMMARY | 2024-10-17 15:28 | XMS_ITS ---
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) Organization Department of [place] Address [address] [place] [address] Care Team Providers Care Director Data Management Name Role Phone GURPREET PEREZ Primary Care [...] Harding's Name Patient's Relationship to Policy Harding [facility] PLAN [facility] (WNR) MEDICARE ADVANTAGE [facility] (WNR) Oct 25, 2011 [facility] [id number] FATEMEH GOMEZ PATIENT Selected Encounter This section includes the information on record at [place] for the Encounter. Date/Time Encounter Type Encounter Description Reason Pro vider Source Dec 16, 2023 03:21 PM Outpatient Encounter ADMIN PAT ACTIVTIES (MASNONCT) IHE Encounter Template Text not used by [place] Plan of Treatment: Future Appointments (+ 6 [...] 05, 2024 08:00 AM AMBULATORY - [place]ICINE [place] C NTRL TR[facility] February 25, 2024 02:00 PM AMBULATORY - [facility] Mar 30, 2024 10:00 AM AMBULATORY - [facility]HAB MEDICIN E [facility] May 12, 2024 11:30 AM AMBULATORY - REHAB MEDICIN E [facility] Jun 05, 2024 08:00 AM AMBULATORY - [place]ICINE [place] C [facility] Jun 13, 2024 10:00 AM AMBULATORY - REHAB MEDICIN E [facility] Social History: Smoking Status (Most [...] 03, 2023 08:58 AM VA-TOBACCO FORMER USER [facility] Tobacco Use History This section includes a history of the smoking, or tobacco-related health factors, that were collected on or before the date of the Encounter. The data comes from the [place] facility where the Encounter took place. Date/Time Smoking Status/Tobacco Use Comment F acility Jun 03, 2023 08:58 AM [place]-TOBACCO QUIT 15 YRS OR MORE [facility] Advance Directives: All historical and [...] Jun 30, 2019 ADVANCE DIRECTIVE CASSIE POWELL [facility] Encounter Notes: All associated encounter notes This section contains the clinical notes associated to the Encounter. Date/Time Encounter Note(s) Provider Source Dec 16, 2023 03:21 PM ADMINISTRATIVE NOT E: LOCAL TITLE: CCC: SCHEDULING ADMINISTRATION STANDARD TITLE: ADMINISTRATIVE NOTE DATE OF NOTE: DEC 16, 2023@15:21:28 ENTRY DATE: DEC 16, 2023@15:21:28 AUTHOR: ROGELIO MARTÍNEZ COSIGNER: URGENCY: STATUS: COMPLETED CCC: SCHEDULING ADMINISTRATION Has ADDENDA Patient Demographics Patient Name: FATEMEH GOMEZ Patient Primary Phone: [phone] Patient Primary Address: [address] [place] [address] Patient : 1945 Patient Age: 78 Call Back Number: [phone] Caller/Recipient Relation to Patient: Other If Other Describe Relation to Patient: Ted Caller Name: Social Home Administrative Administrative Note Reason: Other Administrative Note Comments: Brisa with [employer] following up consumer marketing manager 12/14/23 regarding rash which is now on left elbow. Brisa can be reached at [phone] /inge/ ROGELIO MARTÍNEZ Signed: 12/16/2023 15:21 Receipt Acknowledged By: 12/16/2023 15:30 /inge/ RONN MARTINEZ RN-BC REGISTERED NURSE for YI BLANCHARD 12/17/2023 09:43 /es/ MAXIMILIANO KUMARI LPN LPN 12/16/2023 ADDENDUM STATUS: COMPLETED Called Analy and advised that author has reached out to [place] and left voicemail advising him of [facility] sick call clinic availability tomorrow. Analy will contact to follow up later today. No protected health information was provided by author during this call. /inge/ RONN MARTINEZ RN-BC REGISTERED NURSE Signed: 12/16/2023 15:31 ROGELIO MARTÍNEZ [facility]
--- OUTSIDE RECORDS SUMMARY | 2024-10-17 15:28 | XMS_ITS ---
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 ns Affairs ([place]) Organization Department of Vetera Affairs ([place]) Address [address] [place] [address] Care Team Providers Care Felt Finisher Name [...] to Policy Harding [facility] PLAN [facility] (WNR) MEDICARE ADVANTAGE [facility] (WNR) Oct 25, 2011 [facility] [id number] FATEMEH GOMEZ PATIENT Selected Encounter This section includes the information on record at [place] for the Encounter. Date/Time Encounter Type Encounter Description Reason Pro vider Source Dec 17, 2023 08:51 AM Outpatient Encounter ADMIN PAT ACTIVTIES (MASNONCT) IHE Encounter Template Text not used by [place] Plan of Treatment: Future Appointments (+ 6 [...] 05, 2024 08:00 AM AMBULATORY - MEDICINE [place] C NTRL [facility] February 25, 2024 02:00 PM AMBULATORY - REHAB MEDICIN E [facility] Mar 30, 2024 10:00 AM AMBULATORY - REHAB MEDICIN E [facility] May 12, 2024 11:30 AM AMBULATORY - REHAB MEDICIN E [facility] Jun 05, 2024 08:00 AM AMBULATORY - MEDICINE [place] C [facility]L [facility] Jun 13, 2024 10:00 AM AMBULATORY - REHAB MEDICIN E [facility] Social History: Smoking Status (Most current) [...] 03, 2023 08:58 AM VA-TOBACCO FORMER USER [facility] Tobacco Use History This section includes a history of the smoking, or tobacco-related health factors, that were collected on or before the date of the Encounter. The data comes from the [place] facility where the Encounter took place. Date/Time Smoking Status/Tobacco Use Comment F acility Jun 03, 2023 08:58 AM [place]-TOBACCO QUIT 15 YRS OR MORE [facility] Advance Directives: All historical and current [...] DIRECTIVE CASSIE POWELL [facility] Encounter Notes: All associated encounter notes This section contains the clinical notes associated to the Encounter. Date/Time Encounter Note(s) Provider Source Dec 17, 2023 08:51 AM ADMINISTRATIVE NOT E: LOCAL TITLE: CCC: SCHEDULING ADMINISTRATION STANDARD TITLE: ADMINISTRATIVE NOTE DATE OF NOTE: DEC 17, 2023@08:51:35 ENTRY DATE: DEC 17, 2023@08:51:35 AUTHOR: PABLITO PADILLA EXP COSIGNER: URGENCY: STATUS: COMPLETED Patient Demographics Patient Name: FATEMEH GOMEZ Patient Primary Phone: [phone] Patient Primary [address]: [address] [place] [id number] Patient : 1945 Patient Age: 78 Caller/Recipient Relation to Patient: Caregiver Caller Name: Maria C Administrative Administrative Note Reason: Paperwork Request Administrative Note Comments: The spouse is requesting a call back to know if the sick call hours in the morning are for every day. She states she cannot bring in the patient today but will being them in on Wednesday if the rash doesn't clear up. /inge/ PABLITO PADILLA Signed: 12/17/2023 08:51 Receipt Acknowledged By: 12/20/2023 10:06 /es/ YI BLANCHARD RN REGISTERED NURSE 12/21/2023 13:34 /es/ RUDY COCHRAN LPN, DAVID G [facility] WSN [facility]
--- OUTSIDE RECORDS SUMMARY | 2024-10-17 15:28 | XMS_ITS | Encounter Summary ---
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 Affairs [place] Organization Department [place] Address [address] [place] [id number] Care Team Providers Care Gin Feeder Name Role Phone GURPREET PEREZ Primary [...] [facility] (WNR) MEDICARE ADVANTAGE [facility] (WNR) Oct 25, 2011 [facility] [id number] FATEMEH GOMEZ PATIENT Selected Encounter This section includes the information on record at [place] for the Encounter. Date/Time Encounter Type Encounter Description Reason Provider Source Dec 14, 2023 01:06 PM Outpatient Encounter TELEPHONE TRIAGE EMMA BECKETT Encounter Template Text not used by [place] [...] 05, 2024 08:00 AM [facility] February 25, 2024 02:00 PM [facility]UL[facility] Mar 30, 2024 10:00 AM [facility] May 12, 2024 11:30 AM AMBULAT[facility] - [facility] Jun 05, 2024 08:00 AM AMBULATORY - MEDICINE [facility] Jun 13, 2024 10:00 AM AMBULATORY - REHAB MEDICIN E [facility] Social History: Smoking Status (Most current) and [...] 03, 2023 08:58 AM VA-TOBACCO FORMER USER [facility] Tobacco Use History This section includes a history of the smoking, or tobacco-related health factors, that were collected on or before the date of the Encounter. The data comes from the [place] facility where the Encounter took place. Date/Time Smoking Status/Tobacco Use Comment F acility Jun 03, 2023 08:58 AM [place]-TOBACCO QUIT 15 YRS OR MORE [facility] Advance Directives: All historical and current Section [...] Jun 30, 2019 ADVANCE DIRECTIVE CASSIE POWELL [facility] Encounter Notes: All associated encounter notes This section contains the clinical notes associated to the Encounter. Date/Time Encounter Note(s) Provider Source Dec 14, 2023 01:06 PM RN PROGRESS NOTE: LOCAL TITLE: CCC: CLINICAL TRIAGE STANDARD TITLE: RN PROGRESS NOTE DATE OF NOTE: DEC 14, 2023@13:06:13 ENTRY DATE: DEC 14, 2023@13:06:13 AUTHOR: EMMA BECKETT EXP COSIGNER: URGENCY: STATUS: COMPLETED CCC: CLINICAL TRIAGE Has ADDENDA Patient Demographics Patient Name: FATEMEH GOMEZ Patient Primary Address: [address] [place] [address] [place] [address] Patient Primary Phone: [phone] Patient : 1945 Patient Age: 78 Call Back Number: [phone] Caller/Recipient Relation to Patient: Other If Other Describe Relation to Patient: chief of internal medicine Caller Name: Brisa Emergency Contact: MARIA C GOMEZ Nursing Plan and Disposition Other course(s) of action Generated msg to PACT/Provider Nurse Summary Nurse Summary: Spoke to mobile home mechanicBrisa. She reports visiting vet today and he has a worsening rash to his inner thighs/groin. He has been using nystatin powder and family has changed soaps thinking this was causing the irritation but it is still not getting better. She denies any s/sx of infecation. , Maria C is the best contact for vet [phone]. Will alert PACT for review and follow up. Clinical Contact Center Codes Clinic/Location: V1 CWM PHONE [facility] RN /inge/ Emma BeckettRN,BSN Call Center Registered Nurse Signed: 12/14/2023 13:06 Receipt Acknowledged By: 12/17/2023 09:20 /inge/ YI BLANCHARD RN REGISTERED NURSE 12/20/2023 12:11 /es/ MAXIMILIANO KUMARI LPN LPN 12/16/2023 ADDENDUM STATUS: COMPLETED Called Maria C's call back number noted above and left voicemail to call back to PACT at [phone]. Author also provided sick call clinic availability tomorrow betw 8:30 am and 3:30 pm at [facility]. /inge/ CASSIE OLEARY, BSN RN-BC REGISTERED NURSE Signed: 12/16/2023 15:29 EMMA BECKETT CNTRL TRN [facility]
--- OUTSIDE RECORDS SUMMARY | 2024-10-17 15:28 | XMS_ITS | Encounter Summary ---
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 Affairs ([place]) Organization Department of [place] Address [address] [place] [address] Care Team Providers Care Manager Plan Name Role Phone GURPREET PEREZ Primary Care [...] Patient's Relationship to Policy Harding [facility] (WNR) MEDICARE ADVANTAGE [facility] (WNR) Oct 25, 2011 [facility] [id number] FATEMEH GOMEZ PATIENT Selected Encounter This section includes the information on record at [place] for the Encounter. Date/Time Encounter Type Encounter Description Reason Pro vider Source Nov 29, 2023 12:00 PM Outpatient Encounter COMMUNITY [...] 20 appointments. The data comes from all [place] treatment facilities. Appointment Date/Time Appointment Type Appointme nt Facility Name Dec 08, 2023 08:00 AM AMBULATORY - MED[facility] Feb 05, 2024 08:00 AM [facility] February 25, 2024 02:00 PM [facility] Mar 30, 2024 10:00 AM [facility] May 12, 2024 11:30 AM AMBULATORY - REHAB MEDICIN E [facility] Social History: Smoking Status (Most current) and Tobacco Use (All prior to encounter date) This section includes the most current, and the historical, smoking and tobacco- related health factors from the [place] facility where the Encounter took place. Current Smoking Status This section includes the most current smoking, or tobacco-related health factor, from the [place] facility where the Encounter took place. Date/Time Current Smoking Status Comment Facil ity Jun 03, 2023 08:58 AM VA-TOBACCO FORMER USER [facility] Tobacco Use History This section includes a history of the smoking, or tobacco-related health factors, that were collected on or before the date of the Encounter. The data comes from the [place] facility where the Encounter took place. Date/Time Smoking Status/Tobacco Use Comment F acility Jun 03, 2023 08:58 AM [place]-TOBACCO QUIT 15 YRS OR MORE [facility] Advance Directives: All historical and current Section Date Range: From patient's date of to the date document was created. This section includes ALL of a patient's completed or amended [place] Advance and Rescinded Directives. The entries below indicate that a directive exists for the patient, but an actual copy is not included with this document. The data comes from all [place] facilities. Date Advance Directives Provider Source Jul 15, 2023 ADVANCE DIRECTIVE ROGER PEDRAZA Jun 30, 2019 ADVANCE DIRECTIVE CASSIE POWELL [facility] Encounter Notes: All associated encounter notes This section contains the clinical notes associated to the Encounter. Date/Time Encounter Note(s) Provider Source Nov 29, 2023 12:00 PM NONVA CONSULT: LOCAL TITLE: COMMUNITY CARE-CONSULT RESULT NOTE STANDARD TITLE: NONVA CONSULT DATE OF NOTE: NOV 29, 2023@12:00 ENTRY DATE: JAN 03, 2024@11:40:52 AUTHOR: YUNIEL SANDERS COSIGNER: URGENCY: STATUS: COMPLETED VistA Imaging - Scanned Document SCANNED DOCUMENT SIGNATURE NOT REQUIRED Electronically Filed: 01/03/2024 by: YUNIEL LUIS CNTRL [facility]
--- OUTSIDE RECORDS SUMMARY | 2024-10-17 15:28 | XMS_ITS ---
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 Affairs ([place]) Organization Department of [place] Affairs [place] Address [address] [place] [address] Care Team Providers Care Contact Center Consultant Name Role Phone GURPREET PEREZ Primary [...] Patient's Relationship to Policy Harding [facility] (WNR) MEDICARE ADVANTAGE [facility] (WNR) Oct 25, 2011 [facility] [id number] FATEMEH GOMEZ PATIENT Selected Encounter This [...] 05, 2024 08:00 AM AMBULATORY - [facility] February 25, 2024 02:00 PM AMBULATORY - [place]ICIN [place] [facility] [place] [facility] Mar 30, 2024 10:00 AM AMBULATORY - [facility] May 12, 2024 11:30 AM AMBULATORY - [facility] Jun 05, 2024 08:00 AM AMBULATORY - MEDICINE [facility] Social [...] 2023 08:58 AM VA-TOBACCO FORMER USER [facility] Tobacco Use History This section includes a history of the smoking, or tobacco-related health factors, that were collected on or before the date of the Encounter. The data comes from the [place] facility where the Encounter took place. Date/Time Smoking Status/Tobacco Use Comment F acility Jun 03, 2023 08:58 AM VA-TOBACCO QUIT 15 YRS OR MORE [facility] Advance Directives: All historical and [...] 30, 2019 ADVANCE DIRECTIVE CASSIE POWELL [facility] Encounter Notes: All associated encounter notes This section contains the clinical notes associated to the Encounter. Date/Time Encounter Note(s) Provider Source Dec 13, 2023 12:00 AM NONVA CONSULT: LOCAL TITLE: COMMUNITY CARE-CONSULT RESULT NOTE STANDARD TITLE: NONVA CONSULT DATE OF NOTE: DEC 13, 2023 ENTRY DATE: DEC 29, 2023@14:00:51 AUTHOR: LIBAN TRIMBLE COSIGNER: URGENCY: STATUS: COMPLETED VistA Imaging - Scanned Document SCANNED DOCUMENT SIGNATURE NOT REQUIRED Electronically Filed: 12/29/2023 by: LIBAN RTIMBLE MEDICAL IMPREGNATING MACHINE OPERATOR LIBAN TRIMBLE [place] [facility]
--- OUTSIDE RECORDS SUMMARY | 2024-10-17 15:28 | XMS_ITS | Encounter Summary ---
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 Date/Time Encounter Type Encounter Description Reason Provider Source Nov 23, 2023 03:45 PM PROGRAM INTAKE ASSESSMENT ADMIN PAT ACTIVTIES (MASNONCT) ICD-10-CM Z74.1 Need for assistance with personal care BILL BYERS [facility] Encounter Template Text not used by [place] Assessments - Encounter Diagnoses This section includes the primary and secondary diagnoses documented for the Encounter. Date/Time Primary/Secondary Diagnosis Diagnosis Name Provider Source Nov 23, 2023 03:55 PM PRIMARY Need for assistance with personal care BILL BYERS [facility] Plan of Treatment: Future Appointments (+ 6 months) and Future Tests (+/- 45 days) The Plan of Treatment section includes future care activities for the patient [facility] [place] [facility] This section includes future appointments [...] 08, 2023 08:00 AM AMBULATORY - MEDICINE [facility] Feb 05, 2024 08:00 AM AMBULATORY - MEDICINE [facility] February 25, 2024 02:00 PM AMBULATORY - REHAB MEDICIN E [facility] Mar 30, 2024 10:00 AM AMBULATORY - REHAB MEDICIN E [facility] May 12, 2024 11:30 AM AMBULATORY - REHAB MEDICIN E [facility] Social History: Smoking Status (Most [...] AM AL-TOBACCO QUIT 15 YRS OR MORE [facility] Advance Directives: All historical and current Section Date Range: From patient's date of to the date document was created. This section includes ALL of a patient's completed or amended [place] Advance and Rescinded Directives. The entries below indicate that a directive exists for the patient, but an actual copy is not included with this document. The data comes from all [place] facilities. Date Advance Directives Provider Source Jul 15, 2023 ADVANCE DIRECTIVE ROGER PEDRAZA Jun 30, 2019 ADVANCE DIRECTIVE CASSIE POWELL [place] [facility]L [facility] Encounter Notes: All associated encounter notes This section contains the clinical notes associated to the Encounter. Date/Time Encounter Note(s) Provider Source Nov 23, 2023 03:45 PM CAREGIVER CERTIFICATE: LOCAL TITLE: CSP PCAFC PRIMARY CARE COLLABORATION STANDARD TITLE: CAREGIVER CERTIFICATE DATE OF NOTE: NOV 23, 2023@15:45 ENTRY DATE: NOV 23, 2023@15:45:50 AUTHOR: BILL BYERS COSIGNER: URGENCY: STATUS: COMPLETED As part of the Program of Comprehensive Assistance for Family Caregiver (PCAFC), the Caregiver Support Program (CSP) collaborates with the Loa's Primary Care Team to the maximum extent practicable. Primary Care Team means one or more biomedical engineering supervisor who care for a patient based on the clinical needs of the patient. Primary Care Teams must include a [place] Primary Care Provider who is a physician, advanced practice nurse or a physician medical receptionist medical assistant. The CSP is seeking input and/or sharing documentation such as comprehensive assessments or progress notes that discuss ADL needs and/or supervision, protection or instruction needs; or a treatment plan. Primary Care Team members are not responsible for determining eligibility for the PCAFC. Documentation for collaboration should be within twelve months from the valid application received date or reassessment date, as applicable. Loa Name: FATEMEH GOMEZ Valid application received date or reassessment date, as applicable: Oct CSP staff was not able to collaborate directly with the 's Primary Care Team. The Loa's chart was reviewed for information within the last twelve (12) months from the valid application received date or reassessment date, as applicable. Upon completing review, the CSP staff completed the following note: Name of primary provider: PATRICIA PEREZ Specialty of provider: Primary Care Date/Title of documentation reference: 07/29/2023MD Note09/29/2023 Primary Care Secure messaging Active Problem Pruritic rash L28.2, Onset 06/05/2023 KHUSHBOO SCHRADER Chronic bronchitis J42., Onset 06/05/2023February,KHUSHBOO Goldberg Bronchiectasis J47.9, Onset 06/05/2023February,KHUSHBOO Goldberg Weight loss R63.4, Onset 06/05/2023February,KHUSHBOO Goldberg Chronic cough R05.3, Onset 06/05/2023February,KHUSHBOO Goldberg Chronic deafness H91.90, Onset 06/05/2023February,KHUSHBOO Goldberg Diabetes mellitus type 2 E11.9, Ons 06/05/2023February,KHUSHBOO Goldberg Hyperlipidemia E78.5, Onset 06/05/2023February,KHUSHBOO Goldberg Benign essential hypertension I10., 06/05/2023February,KHUSHBOO Goldberg Anemia D64.9, Onset 06/05/2023February,KHUSHBOO Goldberg Atherosclerosis of grindstone coronary 08/02/2023February,KHUSHBOO Goldberg H/O: vertigo Z86.69, Onset 06/03/2023February,KHUSHBOO Goldberg Hypoglycemia E16.2, Onset 06/03/2023February,KHUSHBOO Goldberg Chronic orthostatic hypotension R69 06/03/2023February,KHUSHBOO Goldberg Confusion R41.0, Onset 06/03/2023February,KHUSHBOO Goldberg DIABETES MELLITUS 20% SC 2ND DEGREE PRICE 0% SC HYPERTENSIVE VASCULAR DISEASE 0% SC ARTERIOSCLEROTIC HEART DISEASE 100% SC Active Outpatient Medications (including Supplies): DEPEND FITTED BRIEF,MAXIMUM LARGE USE 1 BRIEF DIRECTED ACTIVE THREE TIMES DAILY NEEDED DEPEND UNDERWEAR,MAXIMUM,MEN LARGE USE 1 BRIEF DIRECTED ACTIVE THREE TIMES DAILY NEEDED URINARY INCONTINENCE TRIAD WOUND DRESSING TOP PASTE APPLY SUFFICIENT AMOUNT ACTIVE TOPICALLY TWICE DAILY FOR BED SORES UNDERPAD,BED ULTRASORB [id number] M#[id number] USE 1 UNDERPAD ACTIVE TOPICALLY TWICE DAILY NEEDED URINARY INCONTINENCE Non-VA ALBUTEROL 90MCG (CFC-F) 200D ORAL INHL 1 PUFF BY ACTIVE MOUTH EVERY 6 HOURS NEEDED Non-VA AMMONIUM LACTATE 12% LOTION MODERATE AMOUNT ACTIVE TOPICALLY ONCE DAILY Non-VA ASPIRIN 81MG EC TAB 81MG BY MOUTH ONCE DAILY ACTIVE Non-VA ATORVASTATIN CALCIUM 80MG TAB 80MG BY MOUTH ONCE ACTIVE DAILY Non-VA CETIRIZINE HCL 10MG TAB 10MG BY MOUTH ONCE DAILY ACTIVE Non-VA GUAIFENESIN 600MG SA TAB 1200MG BY MOUTH ONCE DAILY ACTIVE Non-VA METFORMIN HCL 1000MG TAB 1000MG BY MOUTH ONCE DAILY ACTIVE Non-VA METOPROLOL SUCCINATE 50MG SA TAB 50MG BY MOUTH ONCE ACTIVE DAILY Non-VA TRELEGY ELLIPTA 100/62.5/25MCG INH 30D 1 INHALATION ACTIVE BY MOUTH ONCE DAILY Non-VA TRIAMCINOLONE ACETONIDE 0.1% CREAM THIN LAYER ACTIVE TOPICALLY ONCE DAILY Current treatment plan (to include timelines, frequency, and duration): ASSESSMENT/PLAN:======== Pt is 77 y/o M with PMH of HTN, HL, DM2, CAD s/p PCI 2 stents, chronic bronchitis, bronchiectasis, anemia, hearing loss here today to [facility] care at the [facility]#HTN: normotensive today -on toprol 50mg #h/o orthostatic hypotension, fall risk-Fall precautions discussed with patient-Ambulates with a cane-Continue with PT OT-Adequate hydration#CAD s/p PCI 2 stents, HL: asymptomatic on BB, statin, ASA-f/w non VA cardiology#chronic bronchitis, bronchiectasis: Clinically stableOn Trelegy Ellipta and albuterol as neededF/w with non-VA pulmonary#DM2-Per patient well-controlled on metformin 1000 mg daily#Hearing loss-to follow-up with [facility]-number provided#Pressure ulcer -sacral-nicely healing with daily apoplication of triad paste- refilled Healthcare maintenance: --Lipids: --Diabetes: --Colon CA (50-75): never, declined --Lung CA: --PSA --AAA (smoker/65): --Influenza (yrly): declined -mother had Bryan syndrome --COVID: declined booster had rash --PCV20: 05/2023 --PCV23: --RZV (>50yrs, x2): 2019X2 --TDAP: 12/2022 --Hep C screen: declined --HIV screen: --DEXA: --Advanced Directives: Comanagement - prefers to have most aspects of health maintenance, chroniccondition(s) and medication management to non-VA PCP. Based on record review, Loa is able to understand the current treatment plan:* Yes Based on record review, Caregiver is noted as being actively involved in the care of the Loa:* Yes Describe caregiver's involvement: Caregiver is active as point of contact for the Loa, in particular as he has been in and out of inpatient settings in 2022. Based on record review, Caregiver is noted to be able to understand the current treatment plan:* Yes Based on record review, the care needs of the can be safely provided in a home setting:* Yes Based on record review, there is evidence of being recommended for institutional care:* No /es/ BILL BYERS LCSW Clinical Conveyor Feeder Signed: 11/23/2023 15:55 BILL BYERS [place] CNTRL W[facility]
--- OUTSIDE RECORDS SUMMARY | 2024-10-17 15:30 | XMS_ITS | Encounter Summary ---
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 Address [address] [place] [id number] Care Team Providers Care Lens Mold Setter Name Role Phone GURPREET PEREZ Primary Care [...] Name Patient's Relationship to Policy Harding [facility] PLAN [facility] (WNR) MEDICARE ADVANTAGE [facility] (R) Oct 25, 2011 [facility] [id number]OME[address] PATIENT Selected Encounter This section includes the information on record at [place] for the Encounter. Date/Time Encounter Type Encounter Description Reason Provider Source Aug 22, 2024 09:30 AM OFFICE O/P EST LOW 20 MIN PRIMARY CARE/MEDICINE ICD-10-CM A41.9 Sepsis, unspecified organism COURTNEY FAROOQ Encounter Template Text not used by [place] Assessments - Encounter Diagnoses This section includes the primary and secondary diagnoses documented for the Encounter. Date/Time Primary/Secondary Diagnosis Diagnosis Name Provider Source Aug 22, 2024 10:21 AM PRIMARY Sepsis, unspecified organism COURTNEY FAROOQ Plan of Treatment: Future Appointments (+ 6 months) and Future Tests (+/- 45 days) The Plan of Treatment section includes future care activities for the patient [facility] [place] [facility] This section includes future appointments and future orders which are active, pending or scheduled. Future Appointments This section includes appointments that were scheduled to occur 6 months from the date of the Encounter, up to a maximum of 20 appointments. The data comes from all [place] treatment facilities. Appointment Date/Time Appointment Type Appointme nt Facility Name Aug 29, 2024 08:00 AM [place] [place] [facility] Sep 20, 2024 09:00 AM AM[facility]UL[facility]ORY - MEDICINE [facility] Oct 03, 2024 11:30 AM AMBULATORY - MEDICINE [facility] Active, Pending, and Scheduled Orders This section includes a listing of several types of active, pending, and scheduled orders, including clinic medications orders, diagnostic test orders, procedure orders and consult orders; where the start date of the order is 45 days before the date of the Encounter or 45 days after the date of theEncounter. The data comes from all [facility] facilities. Test Date/Time Test Type Test Details Facility Name Aug 28, 2024 04:23 PM Consult Order COMMUNITY CARE-GEC NON-SKILLED HOME HEALTH AIDE [facility] Mathematical Sciences [facility]'s [facility] Sep 20, 2024 10:06 AM Consult Order NUTRITION ASSESSMENT/EDUCATION/SPO PC OUTPT Cons Mathematical Sciences Professor's [facility] Lab Results: +/- 30 days of the encounter This section includes the Chemistry and Hematology Lab Results on record with [place] for the patient. Radiology Reports and Pathology Reports are provided separately, in subsequent sections. Lab Results This section contains the Chemistry/Hematology Results that were resulted 30 days before or 30 daysafter the date of the Encounter. Date/Time Source Result Type Result - Unit Interpretation Reference Range Comment Aug 22, 2024 10:26 AM [place] FOLATE (WROX) Specimen Type: SERUM No comment entered. Ordering Provider: COURTNEY FAROOQ Report Released Date/Time: Aug 22, 2024 10:17 AM Reporting Lab: [facility] [address] [facility] [address] Performing Lab: [facility] [address] [address] FOLATE (WROX) 3.90 ng/mL L >5.2 Aug 22, 2024 10:26 AM [place] RETICULOCYTES Specimen Type: BLOOD Comment: Smear reviewed, auto CBC w/Diff accepted. Ordering Provider: COURTNEY FAROOQ Report Released Date/Time: Aug 22, 2024 10:17 AM Reporting Lab: [address] [address] Performing Lab: [address] [address] RETIC % 2.6 H 0.6-2.0 RETIC, ABS 91.6 10*3/uL H 30.0-90.0 RET-HE % 29.6 27.9-42.0 Aug 22, 2024 10:26 AM [place] IRON & TIBC PANEL Specimen Type: SERUM No comment entered. Ordering Provider: COURTNEY FAROOQ Report Released Date/Time: Aug 22, 2024 10:17 AM Reporting Lab: [address] [address] Performing Lab: [address] [address] TIBC 210 ug/dL 204-475 IRON 43 ug/dL 40-160 Transferrin Saturation 20.5 20.0-50.0 Transferrin (TRF) 159 mg/dL L 200-360 Aug 22, 2024 10:26 AM [place] CBC AND DIFF (AUTO) Specimen Type: BLOOD Comment: Smear reviewed, auto CBC w/Diff accepted. Ordering Provider: COURTNEY FAROOQ Report Released Date/Time: Aug 22, 2024 10:17 AM Reporting Lab: [address] [address] Performing Lab: [address] [address] WBC 7.35 10*3/uL 4.50-11.00 RBC 3.51 10*6/uL [...] H 0.00-0.00 Aug 22, 2024 10:26 AM [place] FERRITIN Specimen Type: SERUM No comment entered. Ordering Provider: COURTNEY FAROOQ Report Released Date/Time: Aug 22, 2024 10:17 AM Reporting Lab: [address] [address] Performing Lab: [address] [address] FERRITIN 1130 ng/mL H 20-300 Aug 22, 2024 10:26 AM [place] VITAMIN B12 Specimen Type: SERUM No comment entered. Ordering Provider: COURTNEY FAROOQ Report Released Date/Time: Aug 22, 2024 10:17 AM Reporting Lab: [address] [address] Performing Lab: [address] [address] VITAMIN B12 378 pg/mL 200-900 Aug 22, 2024 10:26 AM [place] BASIC METABOLIC PANEL (non-fasting) Spe cimen Type: SERUM No comment entered. Ordering Provider: COURTNEY FAROOQ Report Released Date/Time: Aug 22, 2024 10:17 AM Reporting Lab: [facility] [address] [facility] [address] Performing Lab: [address] [address] UREA NITROGEN 12 mg/dL 7-25 GLUCOSE 104 mg/dL H 65-100 SODIUM 136 mmol/L 135-145 POTASSIUM 4.7 mmol/L 3.5-5.0 CHLORIDE 106 mmol/L 100-110 CO2 18 meq/L L 20-30 CREATININE, Serum 1.15 mg/dL 0.50-1.40 eGFR(CKD-EPI 2020) 65 mL/min >60 Aug 22, 2024 10:26 AM [place] LIVER FUNCTION Specimen Type: SERUM No comment entered. Ordering Provider: COURTNEY FAROOQ Report Released Date/Time: Aug 22, 2024 10:17 AM Reporting Lab: [address] [address] Performing Lab: [address] [address] PROTEIN,TOTAL 6.0 g/dL 6.0-8.3 ALBUMIN 3.1 g/dL L 3.5-5.0 ALKALINE PHOSPHATASE 138 U/L 40-150 AST 27 U/L 5-34 ALT 36 U/L BILIRUBIN, TOTAL 1.0 mg/dL 0.2-1.2 Aug 16, 2024 01:58 PM [facility] URINALYSIS Specimen Type: URINE Comment: If Glucose = >500 and Ketones are positive, please alert the Physician. Ordering Provider: COURTNEY FAROOQ Report Released Date/Time: Aug 08, 2024 01:49 PM Reporting Lab: [address] [address] Performing Lab: [address] [address] UA COLOR Light-Yellow Yellow UA APPEARANCE Clear Clear UA GLUCOSE Normal mg/dL Negative UA KETONES NEGATIVE mg/dL Negative UA BLOOD NEGATIVE mg/dL Negative UA PROTEIN 10 mg/dL Negative UA NITRITE NEGATIVE mg/dL Negative UA BILIRUBIN NEGATIVE mg/dL Negative UA SPECIFIC GRAVITY 1.017 1.016-1.02 2 UA pH 6.0 5.0-9.0 UA UROBILINOGEN Normal mg/dL <2.0 UA LEUKOCYTE TRACE Negative Aug 16, 2024 01:58 PM [facility] MICROALBUMIN CREATININE RATIO PANEL Specimen Type: URINE No comment entered. Ordering Provider: COURTNEY FAROOQ Report Released Date/Time: Aug 08, 2024 01:49 PM Reporting Lab: [address] [address] Performing Lab: [address] [address] MICROALBUMIN/CR EATININE RATIO 7.3 mg/g 0-29.9 MICROALBUMIN,QU ANTITATIVE 0.8 mg/dL RR UNAVAIL CREATININE URINE 109.38 mg/dL Aug 16, 2024 01:58 PM [facility] MICROSCOPIC AUTOMATED, URINE Specimen Type: URINE Comment: If Glucose = >500 and Ketones are positive, please alert the Physician. Ordering Provider: COURTNEY FAROOQ Report Released Date/Time: Aug 08, 2024 01:49 PM Reporting Lab: [address] [address] Performing Lab: [address] [address] UA WBC 0-5 /[HPF] 0-5 UA BACTERIA 1+ /[HPF] NoneObs UA MUCUS FEW /[LPF] Trace UA HYALINE CASTS 2-4 /[LPF] 0-2 UA RBC 3-5 /[HPF] 0-3 Aug 15, 2024 10:14 AM [facility] BASIC METABOLIC PANEL (fasting) Specimen Type: SERUM No comment entered. Ordering Provider: COURTNEY FAROOQ Report Released Date/Time: Aug 08, 2024 01:49 PM Reporting Lab: [address] [address] Performing Lab: [address] [address] UREA NITROGEN 28 mg/dL H 7-25 GLUCOSE 98 mg/dL 65-100 SODIUM 133 mmol/L L 135-145 POTASSIUM 5.3 mmol/L H 3.5-5.0 CHLORIDE 106 mmol/L 100-110 CO2 15 meq/L L 20-30 CREATININE, Serum 1.31 mg/dL 0.50-1.40 eGFR(CKD-EPI 2020) 55 mL/min L >60 Aug 15, 2024 10:14 AM [facility] LIPID PANEL FASTING Specimen Type: SERUM No comment entered. Ordering Provider: COURTNEY FAROOQ Report Released Date/Time: Aug 08, 2024 01:49 PM Reporting Lab: [address] [address] Performing Lab: [address] [address] CHOLESTEROL 69 mg/dL TRIGLYCERIDE 88 mg/dL 0-150 LDL calculated 16 mg/dL 0-129 CHOL/HDL 2.0 HDL CHOLESTEROL 35 mg/dL L 40-60 Aug 15, 2024 10:14 AM [facility] LIVER FUNCTION Specimen Type: SERUM No comment entered. Ordering Provider: COURTNEY FAROOQ Report Released Date/Time: Aug 08, 2024 01:49 PM Reporting Lab: [facility] [address] [facility] [address] Performing Lab: [address] [address] PROTEIN,TOTAL 6.2 g/dL 6.0-8.3 ALBUMIN 3.2 g/dL L 3.5-5.0 ALKALINE PHOSPHATASE 103 U/L 40-150 AST 17 U/L 5-34 ALT 25 U/L BILIRUBIN, TOTAL 0.9 mg/dL 0.2-1.2 Aug 15, 2024 10:14 AM [facility] HEMOGLOBIN A1C PANEL Specimen Type: BLOOD [...] Aug 08, 2024 01:49 PM Reporting [facility]: [facility] [address] [address] Performing Lab: [facility] [address] [address] HEMOGLOBIN A1C 6.7 H 4.0-5.6 Aug 15, 2024 10:14 AM [facility] TSH Specimen Type: SERUM No comment entered. Ordering Provider: COURTNEY FAROOQ Report Released Date/Time: Aug 08, 2024 01:49 PM Reporting Lab: [facility] [address] [address] Performing Lab: [facility] [address] [address] TSH 1.84 u[IU]/mL 0.35-5.00 Aug 15, 2024 10:14 AM [facility] CBC AND DIFF (AUTO) Specimen Type: BLOOD No comment entered. Ordering Provider: COURTNEY FAROOQ Report Released Date/Time: Aug 08, 2024 01:49 PM Reporting Lab: [facility] [address] [address] Performing Lab: [facility] [address] [address] WBC 7.54 10*3/uL 4.50-11.00 RBC 3.63 10*6/uL [...] 10*3/uL 0.00-0.00 Aug 15, 2024 10:14 AM [facility] CALCIUM Specimen Type: SERUM No comment entered. Ordering Provider: COURTNEY FAROOQ Report Released Date/Time: Aug 08, 2024 01:49 PM Reporting Lab: [address] [address] Performing Lab: [address] [address] CALCIUM 8.5 mg/dL 8.5-10.2 Aug 15, 2024 10:14 AM [facility] URIC ACID Specimen Type: SERUM No comment entered. Ordering Provider: COURTNEY FAROOQ Report Released Date/Time: Aug 08, 2024 01:49 PM Reporting Lab: [address] [address] Performing [facility]: [facility] [address] URIC ACID 7.9 mg/dL H 3.5-7.2 Aug 15, 2024 10:14 AM [facility] VITAMIN D (25-OH) Specimen Type: SERUM No comment entered. Ordering Provider: COURTNEY FAROOQ Report Released Date/Time: Aug 08, 2024 01:49 PM Reporting Lab: [address] [address] Performing Lab: [address] [place] [address] VITAMIN D (25-OH) <13 ng/mL L 20-50 Vital Signs: All taken on the encounter [...] and tobacco- related health factors from the [place] facility where the Encounter took place. Current Smoking Status This section includes the most current smoking, or tobacco-related health factor, from the [place] facility where the Encounter took place. Date/Time Current Smoking Status Comment Facil ity Aug 22, 2024 09:30 AM [place]-TO[place]AC[place] NEVER USED [place] Tobacco Use History This section includes a history of the smoking, or tobacco-related health factors, that were collected on or before the date of the Encounter. The data comes from the [place] facility where the Encounter took place. Date/Time Smoking Status/Tobacco Use Comment F acility Aug 22, 2024 09:30 AM [place]-TOBACCO NEVER USED [place] Aug 22, 2024 09:30 AM [place]-TO[place]AC[place] QUIT 15 YRS OR MORE [place] Advance Directives: All historical and current Section Date Range: From patient's date of to the date document was created. This section includes ALL of a patient's completed or amended [place] Advance and Rescinded Directives. The entries below indicate that a directive exists for the patient, but an actual copy is not included with this document. The data comes from all [place] facilities. Date Advance Directives Provider Source Jul 15, 2023 ADVANCE DIRECTIVE ROGER PEDRAZA Jun 30, 2019 ADVANCE DIRECTIVE CASSIE POWELL [place] [facility] Encounter Notes: All associated encounter notes [...] take place today. has seen his outside pcp([facility] 2-3 weeks ago). defer all CR until next visit with Pact 5. /inge/ RENETTA JACK LPN LICENSED PRACTICAL NURSE Signed: 08/22/2024 10:25 RENETTA JACK [place] Aug 22, 2024 09:35 AM PHYSICIAN ASSISTCIRO Ramos NOTE: LOCAL TITLE: PA NOTE STANDARD TITLE: PHYSICIAN CAGE MAKER NOTE DATE OF NOTE: AUG 22, 2024@09:35 ENTRY DATE: AUG 22, 2024@09:35:54 AUTHOR: COURTNEY FAROOQ EXP COSIGNER: URGENCY: STATUS: COMPLETED S - hospital discharge seen ED at [place] 04 aug 17 ended up being admitted dx [...] Hospital Course Discharge Summaries LABS done at [facility] AUG 17: CBC ABNL - PLT 39 RBC Slightly Low H/H 11.7 / 33.2 Lytes - Improved from Dates of Admission: K 3.5 and Na 133 Renals - Creat 1.3 and BUN 28 & eGFR 55 UA - Minimalist WBC's, RBC's A/P - 1) s/p Sepsis (UTI/Bacteremia - Resolved) 2) Thrombopenia w/ PLT of 39 in AUG 17 +Easy Bruising Does Not Have Polcythemia Remainder [...] ago. /inge/ COURTNEY FAROOQ PA-C STAFF PHYSICIAN CAGE MAKER Signed: 08/22/2024 10:22 COURTNEY FAROOQ
--- OUTSIDE RECORDS SUMMARY | 2024-10-17 15:30 | XMS_ITS | Encounter Summary ---
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 Organization [place] Address [address] [place] [address] Care Team Providers Care Manager Unix Name Role Phone GURPREET PEREZ Primary Care [...] Patient's Relationship to Policy Harding [facility] PLAN [facility] (WNR) MEDICARE ADVANTAGE [facility] (WNR) Oct 25, 2011 [facility] [id number] PATIENT Selected Encounter This section includes the information on record at [place] for the Encounter. Date/Time Encounter Type Encounter Description Reason Pro vider Source Nov 15, 2023 12:00 AM Outpatient Encounter COMMUNITY CARE [...] 20 appointments. The data comes from all [facility]. Appointment Date/Time Appointment Type Appointme nt Facility Name Dec 08, 2023 08:00 AM AMBULATORY - MEDICINE [place] [facility] [place] [facility] Feb 05, 2024 08:00 AM AMBULATORY - MEDICINE [place] [facility] [facility] [facility] February 25, 2024 02:00 PM AMBULATORY - REHAB MEDICIN E [place] [facility] [place] [facility] Mar 30, 2024 10:00 AM AMBULATORY - REHAB MEDICIN E [place] [facility] [place] [facility] May 12, 2024 11:30 AM AMBULATORY - [facility] MEDICIN E [facility] Active, Pending, and Scheduled Orders This section includes a listing of several types of active, pending, and scheduled orders, including clinic medications orders, diagnostic test orders, procedure orders and consult orders; where the start date of the order is 45 days before the date of the Encounter or 45 days after the date of theEncounter. The data comes from all [facility]. Test Date/Time Test Type Test Details Facility Name Oct 08, 2023 12:00 AM Laboratory - Chemi stry Order BASIC METABOLIC PANEL (fasting) BLOOD (SST-SERUM) [facility] Oct 08, 2023 12:00 AM Laboratory - Chemi stry Order LIPID PANEL FASTING BLOOD (SST-SERUM) [facility] Oct 08, 2023 12:00 AM Laboratory - Chemi stry Order LIVER FUNCTION BLOOD (SST-SERUM) [facility] Oct 08, 2023 12:00 AM Laboratory - Chemi stry Order CBC AND DIFF (AUTO) BLOOD (LAV-BLOOD) [facility] Oct 08, 2023 12:00 AM Laboratory - Chemi stry Order HEMOGLOBIN A1C PANEL BLOOD (LAV-BLOOD) [facility] Oct 08, 2023 12:00 AM Laboratory - Chemi stry Order TSH BLOOD (SST-SERUM) [facility] Social History: Smoking Status (Most current) [...] 2023 08:58 AM [place]-TOBACCO FORMER USER [facility] Tobacco Use History This section includes a history of the smoking, or tobacco-related health factors, that were collected on or before the date of the Encounter. The data comes from the [place] facility where the Encounter took place. Date/Time Smoking Status/Tobacco Use Comment F acility Jun 03, 2023 08:58 AM [place]-TOBACCO QUIT 15 YRS OR MORE [facility] Advance Directives: All historical and current Section Date Range: From patient's date of to the date document was created. This section includes ALL of a patient's completed or amended [place] Advance and Rescinded Directives. The entries below indicate that a directive exists for the patient, but an actual copy is not included with this document. The data comes from all [place] facilities. Date Advance Directives Provider Source Jul 15, 2023 ADVANCE DIRECTIVE ROGER PEDRAZA Jun 30, 2019 ADVANCE DIRECTIVE CASSIE POWELL [facility] Encounter Notes: All associated encounter notes This section contains the clinical notes associated to the Encounter. Date/Time Encounter Note(s) Provider Source Nov 15, 2023 12:00 AM NONVA CONSULT: LOCAL TITLE: COMMUNITY CARE-CONSULT RESULT NOTE STANDARD TITLE: NONVA CONSULT DATE OF NOTE: NOV 15, 2023 ENTRY DATE: DEC 08, 2023@11:26:42 AUTHOR: LIBAN TRIMBLE EXP COSIGNER: URGENCY: STATUS: COMPLETED VistA Imaging - Scanned Document SCANNED DOCUMENT SIGNATURE NOT REQUIRED Electronically Filed: 12/08/2023 by: LIBAN TRIMBLE [employer]ICAL BEAM WARPER LIBAN TRIMBLE [facility]
--- OUTSIDE RECORDS SUMMARY | 2024-10-17 15:30 | XMS_ITS | Encounter Summary ---
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 Address [address] [place] [address] Care Team Providers Care Public Health Dietitian Name Role Phone GURPREET PEREZ Primary Care [...] Harding's Name Patient's Relationship to Policy Harding [facility] (WNR) MEDICARE ADVANTAGE [facility] (R) Oct 25, 2011 [facility] [id number] FATEM[address] GOMEZ PATIENT Selected Encounter This section includes the information on record at [place] for the Encounter. Date/Time Encounter Type Encounter Description Reason Provider Source Oct 28, 2023 11:35 AM HC PRO PHONE CALL 21-30 MIN TELEPHONE/BLANCO OLIVARES ICD-10-CM Z74.1 Need for assistance with personal care BILL BYERS Luisito Encounter Template Text not used by [place] Assessments - Encounter Diagnoses This section includes the primary and secondary diagnoses documented for the Encounter. Date/Time Primary/Secondary Diagnosis Diagnosis Name Provider Source Oct 28, 2023 11:35 AM PRIMARY Need for assistance with personal care BILL BYERS [facility] Plan of Treatment: Future Appointments (+ 6 months) and Future Tests (+/- 45 days) The Plan of Treatment section includes future care activities for the patient from all [place] [facility]. This section includes future appointments and future orders which are active, pending or scheduled. Future Appointments This section includes appointments that were scheduled to occur 6 months from the date of the Encounter, up to a maximum of 20 appointments. The data comes from all [facility]. Appointment Date/Time Appointment Type Appointme nt Facility Name Dec 08, 2023 08:00 AM AMBULATORY - [facility] Feb 05, 2024 08:00 AM AMBULATORY - MEDIC[facility] February 25, 2024 02:00 PM AMBULATORY - [facility] Mar 30, 2024 10:00 AM AMBULATORY - REHAB MEDICIN E [facility] Active, Pending, and Scheduled Orders This section includes a listing of several types of active, pending, and scheduled orders, including clinic medications orders, diagnostic test orders, procedure orders and consult orders; where the start date of the order is 45 days before the date of the Encounter or 45 days after the date of theEncounter. The data comes from all [facility]. Test Date/Time Test Type Test Details Facility Name Oct 08, 2023 12:00 AM Laboratory - Chemi stry Order BASIC METABOLIC PANEL (fasting) BLOOD (SST-SERUM) [facility] Oct 08, 2023 12:00 AM Laboratory - Chemi stry Order LIPID PANEL FASTING BLOOD (SST-SERUM) [facility] Oct 08, 2023 12:00 AM Laboratory - Chemi stry Order LIVER FUNCTION BLOOD (SST-SERUM) [facility] Oct 08, 2023 12:00 AM Laboratory - Chemi stry Order CBC AND DIFF (AUTO) BLOOD (LAV-BLOOD) [facility] Oct 08, 2023 12:00 AM Laboratory - Chemi stry Order HEMOGLOBIN A1C PANEL BLOOD (LAV-BLOOD) [facility] Oct 08, 2023 12:00 AM Laboratory - Chemi stry Order TSH BLOOD (SST-SERUM) [facility] Social History: Smoking Status (Most current) [...] F acility Jun 03, 2023 08:58 AM [place]-TOBAC[place] QUIT 15 YRS OR MORE [facility] [...] Encounter. Date/Time Encounter Note(s) Provider Source Oct 28, 2023 11:35 AM CAREGIVER CERTIFIC ATE: LOCAL TITLE: [facility] INTAKE STANDARD TITLE: CAREGIVER CERTIFICATE DATE OF NOTE: OCT 28, 2023@11:35 ENTRY DATE: OCT 28, 2023@11:35:49 AUTHOR: BILL BYERS COSIGNER: URGENCY: STATUS: COMPLETED Program of General Caregiver Support Services (PGCSS) Intake Program of General Caregiver Support Services (PGCSS) Boody Intake The Program of General Caregiver Support Services (PGCSS) provides services to caregivers of eligible Veterans of any era. Services includes training, education, respite care, a telephone support line, self-care courses and other services. These services are available to support caregivers of Veterans enrolled in [place] for health care, who require a caregiver for assistance. For purposes of the [facility], the eligibility criteria includes a who is enrolled in the [place] health care system and needs personal care services because the is either unable to perform one or more activities of daily living or needs supervision or protection based on symptoms or residuals of neurological or other impairment or injury. No formal application or VA clinical treatment team evaluation is required to obtain benefits as a General Caregiver. DISCLAIMER: A caregiver who applies for or participates in the [facility] is not an indication that the named caregiver is the legal next-of-kin or decision maker. Date of Visit: Oct The Boody was identified using the following mckinnon identifiers: Full name: FATEMEH GOMEZ Full SSN: [id number] Date of : Aug Method of contact: Telephone CAREGIVER INFORMATION Name: Maria C Gomez Address: [address] [place] [id number] Phone number: Email: [email or web address] Relationship to : Spouse Boody currently lives with the identified caregiver. INFORMATION /Caregiver reports Boody is currently enrolled in [place] health care. Boody/Caregiver reports Boody has a VA Primary Care provider. Name of provider: LUDMILA PEREZ Additional details: [facility] Boody/Caregiver reports Boody has a [facility] Primary Care provider. Name of provider: Dr. Ely Gamboa Additional details: [facility] [id number] REPORTED NEEDS/CURRENT SUPPORTS /Caregiver reports Boody needing assistance with the following ADLs: Bathing Details: Needs assitance getting in and out of shower Dressing Details: Needs hands on assitance with dressing, especially for extremities (feet, socks) Toileting Details: Needs assitance getting on/off toilet, CG helps change undergarments Mobility Details: Boody needs assitance with mobility, uses walker, cane, or wheelchair for longer distances. Boody/Caregiver reports the Boody does not need assistance with supervision, protection, and/or instruction. agrees to receive personal care services from the identified caregiver. The Boody is receiving care from another individual or agency. Services provided by another individual/agency and by whom: [facility] 21-36 hours/week, using 15 hours currently. The following needs are reported by /caregiver: CG reports help with coordinating the Boody's care, but reports that she has a schedule and is able to maintain it well. SUMMARY: The Boody needs significant levels of support for his ADLs, primarily mobility, showering and dressing. He is unable to make meals, but is able to feed himself. PLAN: Enroll in [facility], consider application for [facility]. /inge/ BILL BYERS LCSW Clinical Bull Fiddle Player Signed: 10/28/2023 12:07 BILL BYERS [place] [facility]
--- OUTSIDE RECORDS SUMMARY | 2024-10-17 15:30 | XMS_ITS | Encounter Summary ---
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 [place]) Organization Department of [place] Address [address] [place] [address] Care Team Providers Care Fixed Income Director Name Role Phone GURPREET PEREZ Primary [...] Policy Harding [facility] PLAN [facility] (WNR) MEDICARE ADVANTAGE [facility] (WNR) Oct 25, 2011 [facility] [id number]OMEZ PATIENT Selected Encounter This section includes the information on record at [place] for the Encounter. Date/Time Encounter Type Encounter Description Reason Pro vider Source Nov 01, 2023 12:00 AM Outpatient Encounter COMMUNITY CARE [...] 20 appointments. The data comes from all [facility]. Appointment Date/Time Appointment Type Appointme nt Facility Name Dec 08, 2023 08:00 AM AMBULATORY - MEDICINE [facility] Feb 05, 2024 08:00 AM AMBULATORY - MEDIC[facility] February 25, 2024 02:00 PM AMBULATORY - [facility] Mar 30, 2024 10:00 AM AMBULATORY - REHAB MEDICIN E [facility] Active, Pending, and Scheduled Orders This section includes a listing of several types of active, pending, and scheduled orders, including clinic medications orders, diagnostic test orders, procedure orders and consult orders; where the start date of the order is 45 days before the date of the Encounter or 45 days after the date of theEncounter. The data comes from all [facility]. Test Date/Time Test Type Test Details Facility Name Oct 08, 2023 12:00 AM Laboratory - Chemi stry Order BASIC METABOLIC PANEL (fasting) BLOOD (SST-SERUM) [facility] Oct 08, 2023 12:00 AM Laboratory - Chemi stry Order LIPID PANEL FASTING BLOOD (SST-SERUM) [facility] Oct 08, 2023 12:00 AM Laboratory - Chemi stry Order LIVER FUNCTION BLOOD (SST-SERUM) [facility] Oct 08, 2023 12:00 AM Laboratory - Chemi stry Order CBC AND DIFF (AUTO) BLOOD (LAV-BLOOD) [facility] Oct 08, 2023 12:00 AM Laboratory - Chemi stry Order HEMOGLOBIN A1C PANEL BLOOD (LAV-BLOOD) [facility] Oct 08, 2023 12:00 AM Laboratory - Chemi stry Order TSH BLOOD (SST-SERUM) [facility] Social History: Smoking Status (Most current) [...] Encounter. Date/Time Encounter Note(s) Provider Source Nov 01, 2023 12:00 AM NONVA CONSULT: LOCAL TITLE: COMMUNITY CARE-CONSULT RESULT NOTE STANDARD TITLE: NONVA CONSULT DATE OF NOTE: NOV 01, 2023 ENTRY DATE: NOV 17, 2023@15:13:18 AUTHOR: LIBAN TRIMBLE EXP COSIGNER: URGENCY: STATUS: COMPLETED VistA Imaging - Scanned Document SCANNED DOCUMENT SIGNATURE NOT REQUIRED Electronically Filed: 11/17/2023 by: LIBAN TRIMBLE MEDICAL INVESTIGATION SPECIALIST LIBAN TRIMBLE [facility]
--- OUTSIDE RECORDS SUMMARY | 2024-10-17 15:30 | XMS_ITS | Encounter Summary ---
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 Affairs [place]) Organization [place] Address [address] [place] [address] Care Team Providers Care Supervisor Ore Dressing Name Role Phone GURPREET PEREZ Primary Care [...] Name Patient's Relationship to Policy Harding [facility] PLAN [facility] (WNR) MEDICARE ADVANTAGE [facility] (WNR) Oct 25, 2011 [facility] [id number] FATEM[address] GOMEZ PATIENT Selected Encounter This section includes the information on record at [place] for the Encounter. Date/Time Encounter Type Encounter Description Reason Pro vider Source Oct 19, 2023 12:00 AM Outpatient Encounter COMMUNITY CARE [...] 20 appointments. The data comes from all [facility]. Appointment Date/Time Appointment Type Appointme nt Facility Name Oct 27, 2023 12:40 PM AMBULATORY [place]ICINE [place] [facility] [facility] Dec 08, 2023 08:00 AM AMBULATORY - MEDICINE [place] [facility] [facility] Feb 05, 2024 08:00 AM AMBULATORY - MEDICINE [place] [facility] February 25, 2024 02:00 PM AMBULATORY - REHAB MEDICIN [place] [facility] [facility] Mar 30, 2024 10:00 AM AMBULATORY - REHAB MEDICIN E [place] [facility] Active, Pending, and Scheduled Orders This section includes a listing of several types of active, pending, and scheduled orders, including clinic medications orders, diagnostic test orders, procedure orders and consult orders; where the start date of the order is 45 days before the date of the Encounter or 45 days after the date of theEncounter. The data comes from all [facility]. Test Date/Time Test Type Test Details Facility Name Oct 08, 2023 12:00 AM Laboratory - Chemi stry Order BASIC METABOLIC PANEL (fasting) BLOOD (SST-SERUM) [facility] Oct 08, 2023 12:00 AM Laboratory - Chemi stry Order LIPID PANEL FASTING BLOOD (SST-SERUM) [facility] Oct 08, 2023 12:00 AM Laboratory - Chemi stry Order LIVER FUNCTION BLOOD (SST-SERUM) [facility] Oct 08, 2023 12:00 AM Laboratory - Chemi stry Order CBC AND DIFF (AUTO) BLOOD (LAV-BLOOD) [facility] Oct 08, 2023 12:00 AM Laboratory - Chemi stry Order HEMOGLOBIN A1C PANEL BLOOD (LAV-BLOOD) [facility] Oct 08, 2023 12:00 AM Laboratory - Chemi stry Order TSH BLOOD (SST-SERUM) [facility] Social History: Smoking Status (Most [...] 03, 2023 08:58 AM [place]-TOBACCO FORMER USER [facility] Tobacco Use History This section includes a history of the smoking, or tobacco-related health factors, that were collected on or before the date of the Encounter. The data comes from the [place] facility where the Encounter took place. Date/Time Smoking Status/Tobacco Use Comment F acility Jun 03, 2023 08:58 AM [place]-TOBACCO QUIT 15 YRS OR MORE [facility] Advance Directives: All historical and current [...] Jun 30, 2019 ADVANCE DIRECTIVE CASSIE POWELL [facility] Encounter Notes: All associated encounter notes This section contains the clinical notes associated to the Encounter. Date/Time Encounter Note(s) Provider Source Oct 19, 2023 12:00 AM NONVA CONSULT: LOCAL TITLE: COMMUNITY CARE-CONSULT RESULT NOTE STANDARD TITLE: NONVA CONSULT DATE OF NOTE: OCT 19, 2023 ENTRY DATE: NOV 12, 2023@16:08:40 AUTHOR: YUNIEL SANDERS EXP COSIGNER: URGENCY: STATUS: COMPLETED VistA Imaging - Scanned Document SCANNED DOCUMENT SIGNATURE NOT REQUIRED Electronically Filed: 11/12/2023 by: YUNIEL LUIS [facility]
--- OUTSIDE RECORDS SUMMARY | 2024-10-17 15:30 | XMS_ITS | Encounter Summary ---
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 Affairs ([place]) Organization [place] Address [address] [place] [address] Care Team Providers Care Reading Interventionist Name Role Phone GURPREET PEREZ Primary Care [...] Name Patient's Relationship to Policy Harding [facility] PLAN [facility] (WNR) MEDICARE ADVANTAGE [facility] (WNR) Oct 25, 2011 [facility] [id number] FATEMEH GOMEZ PATIENT Selected Encounter This section includes the information on record at [place] for the Encounter. Date/Time Encounter Type Encounter Description Reason Pro vider Source Nov 08, 2023 12:00 AM Outpatient Encounter COMMUNITY CARE [...] 20 appointments. The data comes from all [facility]. Appointment Date/Time Appointment Type Appointme nt Facility Name Dec 08, 2023 08:00 AM [facility]UL[facility] Feb 05, 2024 08:00 AM [facility]UL[facility] February 25, 2024 02:00 PM AMBULATORY - [facility] Mar 30, 2024 10:00 AM AMBULATORY - REHAB MEDICIN E [facility] Active, Pending, and Scheduled Orders This section includes a listing of several types of active, pending, and scheduled orders, including clinic medications orders, diagnostic test orders, procedure orders and consult orders; where the start date of the order is 45 days before the date of the Encounter or 45 days after the date of theEncounter. The data comes from all [facility]. Test Date/Time Test Type Test Details Facility Name Oct 08, 2023 12:00 AM Laboratory - Chemi stry Order BASIC METABOLIC PANEL (fasting) BLOOD (SST-SERUM) [facility] Oct 08, 2023 12:00 AM Laboratory - Chemi stry Order LIPID PANEL FASTING BLOOD (SST-SERUM) [facility] Oct 08, 2023 12:00 AM Laboratory - Chemi stry Order LIVER FUNCTION BLOOD (SST-SERUM) [facility] Oct 08, 2023 12:00 AM Laboratory - Chemi stry Order CBC AND DIFF (AUTO) BLOOD (LAV-BLOOD) [facility] Oct 08, 2023 12:00 AM Laboratory - Chemi stry Order HEMOGLOBIN A1C PANEL BLOOD (LAV-BLOOD) [facility] Oct 08, 2023 12:00 AM Laboratory - Chemi stry Order TSH BLOOD (SST-SERUM) [facility] Social History: Smoking Status (Most [...] 03, 2023 08:58 AM [place]-TOBACCO FORMER USER [facility] Tobacco Use History This section includes a history of the smoking, or tobacco-related health factors, that were collected on or before the date of the Encounter. The data comes from the [place] facility where the Encounter took place. Date/Time Smoking Status/Tobacco Use Comment F acility Jun 03, 2023 08:58 AM [place]-TOBACCO QUIT 15 YRS OR MORE [facility] Advance Directives: All historical and current [...] Jun 30, 2019 ADVANCE DIRECTIVE CASSIE POWELL [facility] Encounter Notes: All associated encounter notes This section contains the clinical notes associated to the Encounter. Date/Time Encounter Note(s) Provider Source Nov 08, 2023 12:00 AM NONVA CONSULT: LOCAL TITLE: COMMUNITY CARE-CONSULT RESULT NOTE STANDARD TITLE: NONVA CONSULT DATE OF NOTE: NOV 08, 2023 ENTRY DATE: NOV 29, 2023@13:20:19 AUTHOR: LIBAN TRIMBLE EXP COSIGNER: URGENCY: STATUS: COMPLETED VistA Imaging - Scanned Document SCANNED DOCUMENT SIGNATURE NOT REQUIRED Electronically Filed: 11/29/2023 by: LIBAN TRIMBLE MEDICAL ELECTRONICS TECHNICIAN APPRENTICE LIBAN TRIMBLE [facility]
--- OUTSIDE RECORDS SUMMARY | 2024-10-17 15:30 | XMS_ITS ---
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 Affairs [place] Organization Department [place] Address [address] [place] [address] Care Team Providers Care Chemical Tester Name Role Phone GURPREET PEREZ Primary Care [...] Harding's Name Patient's Relationship to Policy Harding [facility] (WNR) MEDICARE ADVANTAGE [facility] (WNR) Oct 25, 2011 [facility] [id number] FATEMEH GOMEZ PATIENT Selected Encounter This section includes the information on record at [place] for the Encounter. Date/Time Encounter Type Encounter Description Reason Pro vider Source Oct 26, 2023 12:31 PM Outpatient Encounter PRIMARY CARE/MEDICINE IHE Encounter [...] The data comes from all [place] treatment [facility]. Appointment Date/Time Appointment Type Appointme nt Facility Name Oct 27, 2023 12:40 PM AMBULATORY [place]ICINE [place] [facility] Dec 08, 2023 08:00 AM AM[place]ULATORY [place]ICINE [place] [facility] Feb 05, 2024 08:00 AM AMBULATORY - [place]ICINE [place] [facility] February 25, 2024 02:00 PM AMBULATORY - REHAB MEDICIN [place] [facility] [place] [facility] Mar 30, 2024 10:00 AM AMBULATORY - REHAB MEDICIN [place] [facility] [facility] Active, Pending, and Scheduled Orders This section includes a listing of several types of active, pending, and scheduled orders, including clinic medications orders, diagnostic test orders, procedure orders and consult orders; where the start date of the order is 45 days before the date of the Encounter or 45 days after the date of theEncounter. The data comes from all [facility]. Test Date/Time Test Type Test Details Facility Name Oct 08, 2023 12:00 AM Laboratory - Chemi stry Order BASIC METABOLIC PANEL (fasting) BLOOD (SST-SERUM) [facility] Oct 08, 2023 12:00 AM Laboratory - Chemi stry Order LIPID PANEL FASTING BLOOD (SST-SERUM) [facility] Oct 08, 2023 12:00 AM Laboratory - Chemi stry Order LIVER FUNCTION BLOOD (SST-SERUM) [facility] Oct 08, 2023 12:00 AM Laboratory - Chemi stry Order CBC AND DIFF (AUTO) BLOOD (LAV-BLOOD) [facility] Oct 08, 2023 12:00 AM Laboratory - Chemi stry Order HEMOGLOBIN A1C PANEL BLOOD (LAV-BLOOD) [facility] Oct 08, 2023 12:00 AM Laboratory - Chemi stry Order TSH BLOOD (SST-SERUM) [facility] Social History: Smoking Status (Most current) and [...] 03, 2023 08:58 AM [place]-TOBACCO FORMER USER [facility] Tobacco Use History This section includes a history of the smoking, or tobacco-related health factors, that were collected on or before the date of the Encounter. The data comes from the [place] facility where the Encounter took place. Date/Time Smoking Status/Tobacco Use Comment F acility Jun 03, 2023 08:58 AM [place]-TOBAC[place] QUIT 15 YRS OR MORE [facility] Advance Directives: All historical and current [...] Jun 30, 2019 ADVANCE DIRECTIVE CASSIE POWELL [facility] Encounter Notes: All associated encounter notes This section contains the clinical notes associated to the Encounter. Date/Time Encounter Note(s) Provider Source Oct 26, 2023 12:31 PM PRIMARY CARE [employer] [facility] E MESSAGING: LOCAL TITLE: PRIMARY CARE SECURE MESSAGING STANDARD TITLE: PRIMARY CARE SECURE MESSAGING DATE OF NOTE: OCT 26, 2023@12:31 ENTRY DATE: OCT 26, 2023@12:31:59 AUTHOR: ANASTASIYA MARES EXP COSIGNER: URGENCY: STATUS: COMPLETED PRIMARY CARE SECURE MESSAGING Has ADDENDA ------Original Message ----- Sent: 10/26/2023 12:18 PM ET From: FATEMEH GOMEZ To: RICHA PEREZ CARE_SPOPC Subject: General:Services done in May 2023 at [facility] I was told I needed to go through you to get a situation taken care of, from Alas stay at [facility] in [place]. For some reason the [place] only approved [place] stay from the June 03 to the but he was there from the May 27 to the . Because [facility] hadn't seen you I am not sure the name of the doctor that approved it. My problem is they need to adjust the dates so [facility] doesn't have a copay to [employer] that they billed instead. This was the rehabs fault for not charging the right insurance in the first place. If you have further questions please contact us at [phone]. Please let us know if this can be done. /inge/ ANASTASIYA MARES ADVANCED CATERPILLAR MECHANIC Signed: 10/26/2023 12:31 Receipt Acknowledged By: 10/26/2023 13:08 /inge/ RONN MARTINEZ RN-BC REGISTERED NURSE for SANTY KIRBY 10/26/2023 15:01 /inge/ MAXIMILIANO KUMARI LPN LPN 10/26/2023 ADDENDUM STATUS: COMPLETED Reply sent to via secure message /inge/ RONN MARTINEZ RN-BC REGISTERED NURSE Signed: 10/26/2023 13:08 ANASTASIYA MARES [place] [facility]
--- OUTSIDE RECORDS SUMMARY | 2024-10-17 15:30 | XMS_ITS | Encounter Summary ---
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 (VA) Organization [facility] of [facility] ([place]) Address [address] [place] [id number] Care Team Providers Care Sports Medicine Trainer Name Role Phone GURPREET PEREZ Primary Care [...] Patient's Relationship to Policy Harding [facility] PLAN [facility] (WNR) MEDICARE ADVANTAGE [facility] (WNR) Oct 25, 2011 [facility] [id number] FATEMEH GOMEZ PATIENT Selected Encounter This section includes the information on record at DC for the Encounter. Date/Time Encounter Type Encounter Description Reason Provider Source Oct 29, 2023 01:48 PM CASE MANAGEMENT CAREGIVER SUPPORT PROGRAM ICD-10-CM Z74.1 Need for assistance with personal care WALT CARDOSO Encounter Template Text not used by DC Assessments - Encounter Diagnoses This section includes the primary and secondary diagnoses documented for the Encounter. Date/Time Primary/Secondary Diagnosis Diagnosis Name Provider Source Oct 29, 2023 01:59 PM PRIMARY Need for assistance with personal care WALT CARDOSO [facility] ([id number]) Plan of Treatment: Future Appointments (+ 6 months) and Future Tests (+/- 45 days) The Plan of Treatment section includes [facility] care activities [facility] the [facility] This section includes future appointments and [...] 08, 2023 08:00 AM AMBULATORY - MEDICINE [place] [facility] [place] [facility] Feb 05, 2024 08:00 AM AMBULATORY - MEDICINE DC [place] [facility] [place] [facility] February 25, 2024 02:00 PM AMBULATORY - REHAB MEDICIN E [place] [facility] [place] [facility] Mar 30, 2024 10:00 AM AMBULATORY - REHAB MEDICIN E [place] [facility] [place] [facility] Active, Pending, and Scheduled Orders [...] comes from all [facility]. Test Date/Time Test Type Test Details Facility Name Oct 08, 2023 12:00 AM Laboratory - Chemi stry Order BASIC METABOLIC PANEL (fasting) BLOOD (SST-SERUM) [facility] Oct 08, 2023 12:00 AM Laboratory - Chemi stry Order LIPID PANEL FASTING BLOOD (SST-SERUM) [facility] Oct 08, 2023 12:00 AM Laboratory - Chemi stry Order LIVER FUNCTION BLOOD (SST-SERUM) [facility] Oct 08, 2023 12:00 AM Laboratory - Chemi stry Order CBC AND DIFF (AUTO) BLOOD (LAV-BLOOD) [facility] Oct 08, 2023 12:00 AM Laboratory - Chemi stry Order HEMOGLOBIN A1C PANEL BLOOD (LAV-BLOOD) [facility] Oct 08, 2023 12:00 AM Laboratory - Chemi stry Order TSH BLOOD (SST-SERUM) [facility] Advance Directives: All historical and current [...] ROGER PEDRAZA Jun 30, 2019 ADVANCE DIRECTIVE ACSSIE POWELL [place] [facility] Encounter Notes: All associated encounter notes This section contains the clinical notes associated to the Encounter. Date/Time Encounter Note(s) Provider Source Oct 29, 2023 01:48 PM CAREGIVER CERTIFIC ATE: LOCAL TITLE: [facility] PCAFC APPLICATION INTAKE STANDARD TITLE: CAREGIVER CERTIFICATE DATE OF NOTE: OCT 29, 2023@13:48 ENTRY DATE: OCT 29, 2023@13:48:52 AUTHOR: WALT CARDOSO COSIGNER: URGENCY: STATUS: COMPLETED [facility] PCAFC APPLICATION INTAKE Has ADDENDA Program of Comprehensive Assistance for Family Caregivers (PCAFC) Application Intake The Local Caregiver Support Program (CSP) Staff contact [place] and identified caregiver applicant(s) for the PCAFC to discuss the program application process and complete the application intake. A brief overview of the eligibility requirements, application process and appeal rights are reviewed with the [place] and caregiver applicant(s). Date of visit: Oct Identified the using full name and the following other mckinnon identifier(s): Full name: FATEMEH GOMEZ Full SSN: [id number] The application intake was conducted using the telephone. Application received date: Oct Individuals providing input include: Primary Family Caregiver applicant Application Information Review: Local Caregiver Support Program (CSP) staff have reviewed and verified information contained in the 10-10CG. 10-10CG has been determined to be a valid application. [place] Information: [place] address: [address] [place] [address] [place] phone #: PATIENT PHONE - [place] Facility where [place] receives care: [facility] The [place] does not live in a foster home, assisted living, or other institutional location. The [place] does not have a legal guardian\conservator. The has an Advance Directive. Advance Directive includes designation of a Durable Power of Cattle Examiner for Health Care (DPOA); name of individual listed to act on the [place]'s behalf in the DPOA: Maria C Gomez Copy is provided or on file in the medical record: Yes The does not have a VA fiduciary. Service Information: Dates of service: 04[birth year]15[birth year] - [birth year]14[birth year]68 Branch of service: [employer] VA service connected ratin% VA service connected disabilities: DS - Disabilities Eligibility: SERVICE CONNECTED 50% to 100% VERIFIED Total S/C %: 100 DIABETES MELLITUS 20% S/C 2ND DEGREE PRICE 0% S/C HYPERTENSIVE VASCULAR DISEASE 0% S/C ARTERIOSCLEROTIC HEART DISEASE 100% S/C The individual is not on active duty or in the Reserves. 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 service: Yes (* Serious injury means any service-connected disability that (1) is rated at 70 percent or more by VA, or (2) is combined with any other service-connected disability or disabilities, and a combined rating of 70 percent or more is assigned by VA.) 3) The individual receives care at home or will do so if VA designates a Family Caregiver: Yes 4) The individual receives ongoing care from a primary care team or will do so if DC designates a Family Caregiver: Yes 5) The individual resides in a State, defined as each of the several States, Territories, and possessions of the [place], the [place], and the [facility]: Yes Caregiver Requirements: Primary Family Caregiver Applicant Name: Maria C Gomez VA Form 10-5345 (TYLER) is on file for Caregiver. Date of Release of Information: 07/29/2023 The Primary Family Caregiver applicant is 18 years of age or older. The Primary Family Caregiver applicant is a family member or will live multimedia services manager with the if designated as a Family Caregiver. Relationship to : Spouse Address of applicant's residence: [address] [place] [address] Requirement Status: The and at least one Family Caregiver applicant meet all of the requirements listed above. Local [facility] staff will coordinate the following next steps: Coordinate the necessary [place] assessment(s) Coordinate the Electronic Health Record (EHR) for the Family Caregiver applicant(s) as needed Coordinate the Family Caregiver applicant(s) assessment Additional Information: - Caregiver provided with national EFT script which addresses how setting up direct deposit is optional during PCAFC application process. - [place] is approved for CLINICAL RESOURCE COORDINATOR; Caregiver aware this could be considered a duplication of services. /inge/ SANIYA MANNING Crib Clerk/GEC/Caregiver Speedboat Driver Signed: 10/29/2023 13:59 11/02/2023 ADDENDUM STATUS: COMPLETED 5103 Letter Mailed: Fatemeh Gomez [address] [place] [address] 11/02/2023 Dear Fatemeh Gomez: Thank you for your interest in the Program of Comprehensive Assistance for Family Caregivers (PCAFC). Your VA Form 10-10CG, Application for the Program of Comprehensive Assistance for Family Caregivers was received by the Department of Veterans Affairs (VA) on 10/28/2023. This letter will explain how VA will evaluate your application for PCAFC and your role in the evaluation process. A copy of this letter is also being sent to each Family Caregiver Applicant identified on the VA Form 10-10CG you submitted. We?look forward to working with you as we evaluate your application?and determine if you meet eligibility criteria for PCAFC? The evaluation for PCAFC eligibility requires Veterans and Family Caregiver Applicants to participate in a comprehensive evaluation process, which we explain below. We will work with you to schedule the necessary appointments and evaluations. Please contact a member of your Caregiver Support Program (CSP) Team immediately if you are having difficulty with the application requirements. If you or your Family Caregiver Applicant(s) are having trouble attending appointments, completing required trainings, or have a change in circumstance impacting your evaluation for PCAFC, let us know so we can offer assistance. The CSP Team will maintain contact with you throughout the evaluation process. WHAT HAPPENS NEXT Now that we have received your application for PCAFC, we will initiate the evaluation process. The steps in this process are described below. ? Step One:??Application Intake?-?A member of your CSP Team will contact you and/or your Family Caregiver Applicant(s) to review your PCAFC application and discuss the Program eligibility requirements. You will have the opportunity to ask questions about any information covered in this letter, including how you can submit additional information to us that you believe supports your eligibility for PCAFC. As part of this step, we will review VA Form 10-10CG that you submitted to ensure it is the proper version and that the information on the form is correct. Please note that only the most recent version of VA Form 10-10CG should be submitted, however at this time we will accept versions published on or after June 2020. The version of the form can be located in the bottom left corner of the application. If any necessary updates or corrections are identified, we will inform you of what is needed, and you will have 90 days from the date DC received your application to provide the needed information. If during this step of our review, VA determines that you do not meet specific eligibility criteria, we will conclude the evaluation. You and your Family Caregiver Applicant(s) will receive a decision notice that explains why we were not able to approve the application. We will continue to work with you and your caregiver(s) to determine other ways that DC may assist you. Some examples of reasons the evaluation may conclude at this step in the process, include but are not limited to: * Identification that you and at least one Family Caregiver Applicant do not reside in a state as defined as each of the several States, Territories, and [facility] centerions of the [place], the [place], and the [facility]. * Identification that your Family Caregiver Applicant is not your spouse, son, daughter, parent, step-family member or extended family member and does not live with you multimedia services manager and will not do so if designated as a Family Caregiver. * You do not have a serious injury. o For the purposes of PCAFC a serious injury is defined as any service- connected disability that is rated at 70% or more by VA or is combined with any other service-connected disability or disabilities and a combined rating of 70% or more is assigned by VA. * The submitted VA Form 10-10CG was signed by a electronics parts sales representative but the proper documentation of this authority was not submitted with the form. ? Step Two - Four:??and Caregiver?Assessments? * [place] Assessments - You will be scheduled for a functional assessment and a clinical assessment to assess whether you are in need of personal care services . For the purposes of PCAFC, to be in need of personal care services means that you require in-person personal care services from another person, and without such personal care services, alternative in-person caregiving arrangements (including respite care or assistance of an alternative caregiver) would be required to support your safety. Completion of a Release of Information form will be requested. We will help you complete this form. * Caregiver Assessment - Each Family Caregiver Applicant will be scheduled for a Caregiver Assessment. This assessment evaluates their ability to provide personal care services to you, in your home, based on your needs. If you have additional information or if you know of information which you believe supports your eligibility for PCAFC that you want us to consider, please let us know. Step Five: Initial Application Review - After you have completed the assessments described above, a member of your CSP Team will request a review of available information by a Centralized Eligibility and Appeals Team (CEAT). CEAT will review the [place] and Caregiver Assessments along with VA medical records, other relevant evaluations, and records available to VA. If CEAT determines you do not currently meet eligibility criteria, we will conclude the evaluation. You and your Family Caregiver Applicant(s) will receive a decision notice that explains why we were not able to approve your application. We will continue to work with you and your caregiver(s) to determine other ways that VA may assist you Step Six:?Caregiver?Training - If CEAT determines that you and your Family Caregiver Applicant(s) may meet eligibility requirements, each?Family Caregiver Applicant must complete required Core Curriculum training. We will arrange for this training to be available to each Family Caregiver Applicant, as applicable. Step Seven:?Home-Care Assessment - A VA clinician(s) will?conduct a home-care assessment. You and each Family Caregiver Applicant must be present and fully participate in this assessment.?The purpose of the home-care assessment is to assess your well-being and the well-being of your caregiver(s), as well as your caregiver(s)' competence to provide personal care services to you in your home. Please note, for the duration of the COVID-19 National Emergency, VA may complete visits to the eligible [place]'s home through video conference or other available telehealth modalities. Step Eight:?CEAT?Review - CEAT will review all assessments and information obtained during the evaluation of your PCAFC eligibility, including a review of relevant VA medical records and any additional information obtained during the course of your evaluation. CEAT will then make a determination of your PCAFC eligibility. Step Nine: Decision Notice - You and your Family Caregiver Applicant(s) will receive a decision notice regarding your eligibility determination. WHAT WE NEED FROM YOU We need your participation in the evaluation process for PCAFC and the participation of each Family Caregiver Applicant. Eligibility determinations for PCAFC require participation in a multistep evaluation process. PCAFC Applicants are required to fully participate in the evaluation for VA to make a determination within 90 days of receiving your application. This timeline may be extended if delays are solely due to VA. If you have additional information or if you know of information which you believe supports your eligibility for PCAFC, please let us know right away so that we can consider this information when making our determination. DC IS RESPONSIBLE FOR THE FOLLOWING ACTIONS * Scheduling and performing evaluations necessary to complete steps 1-9 described earlier in this letter. Please note, however, that a determination may be made at any time in the process if it is determined that any required eligibility criteria are not met. If that is the case, the evaluation process will conclude prior to the completion of all steps, and we will issue you and each Family Caregiver Applicant a decision notice which explains why your PCAFC application is being denied. If you know of information which you believe supports your eligibility for PCAFC which is not already available in DC records and you tell us about it, we will discuss ways we can help obtain this information and consider it when making our determination. ADDITONAL INFORMATION WE WANT YOU TO KNOW * You have submitted a joint application for PCAFC, which means you have identified at least one and up to three caregivers for whom you are asking DC to approve and designate as your Family Caregiver(s). When we issue PCAFC decisions or other written correspondence impacting initial and ongoing participation in PCAFC, our correspondence will be issued to you and each Family Caregiver (Applicant) impacted by the decision. * If you are approved for participation in PCAFC, this approval is conditioned upon continuing to meet requirements to be an eligible and your Family Caregiver(s) continuing to meet requirements for approval and designation as a Family Caregiver. This includes participation in reassessments (as applicable) and wellness contacts. Wellness contacts generally occur every 120 days with one wellness contact occurring in the 's home on an annual basis. If you are determined eligible for PCAFC, your CSP Team will review the PCAFC Roles, Responsibilities and Requirements with you and each Family Caregiver approved and designated by DC. Please ask to be provided a copy, so you can refer to them over time. HOW SOON SHOULD YOU SEND ADDITIONAL INFORMATION? If you plan to submit additional information to support your PCAFC eligibility determination, please let us know as soon as possible. Veterans and Family Caregiver Applicants are required to complete the PCAFC evaluation process within 90 days of DC receiving your application. We may proceed with initiating your evaluation for eligibility and render a decision even if we have not received additional information from you. Submission of additional information is not required. When you receive your decision notice, information will be provided about options available if you disagree with our determination, including the opportunity for submitting new evidence you would like us to consider. PROGRAM OF GENERAL CAREGIVER SUPPORT SERVICES You may select to participate in the Program of General Caregiver Support Services (PGCSS) while your application for PCAFC is being evaluated. Services in PGCSS include:?? * Caregiver skills training and education, both online and in-person * Coaching, supportive counseling and support groups * Peer Support Mentoring * Information on and referrals to VA and community resources There is no application?needed for PGCSS.? If you are interested in learning more, please contact a member of your Caregiver Support Program Team. WE ARE HERE FOR YOU We look forward to working with you to determine how DC may be able to support you and your caregiver(s). If you have any questions about this letter, PGCSS or other matters, please contact your CSP Team. Sincerely,? Caregiver Support Program Team? [facility] Enclosures: * Local [facility] Contact Information CC: Maria C Gomez WHAT THE EVIDENCE MUST SHOW TO SUPPORT YOUR ELIGIBILITY FOR PCAFC (for applications submitted on or after July 25, 2022) If you are seeking benefits under the Program of Comprehensive for Family Caregivers, see the evidence table titled? To be eligible for a Family Caregiver Table 1 - Eligible Veterans and Service members To be approved and designated as a Family Caregiver Table 2 - Approval and Designation of Primary and Secondary Family Caregivers To be granted eligibility for the maximum monthly stipend rate Table 3 - Monthly Stipend Amount Evidence Tables Table 1 - Eligible Veterans and Service members (38 CFR 71.20 and 38 U.S.C. 1720G(a)(2)(C)(ii) and (iii)) To justina an application for [facility], the evidence must show: The individual: * Is either a or a member of the Armed Forces undergoing a medical discharge from the Armed Forces, and * Has a serious injury incurred or aggravated in the line of duty in the active , naval, or air service during any service era, and * Is in need of personal care services for a minimum of six continuous months based on any one of the following three criteria: o an inability to perform an activity of daily living each time he or she completes one of the following: * Dressing or undressing oneself; * Bathing * Grooming oneself in order to keep oneself clean and presentable * Adjusting any special prosthetic or orthopedic appliance, that by reason of the particular disability, cannot be done without assistance (this does not include the adjustment of appliances that nondisabled persons would be unable to adjust without aid, such as supports, belts, lacing at the back, etc.) * Toileting or attending to toileting * Feeding oneself due to loss of coordination of upper extremities, extreme weakness, inability to swallow, or the need for a non-oral means of nutrition * Mobility (walking, going up stairs, transferring from bed to chair, etc.) o a need for supervision or protection based on symptoms or residuals of neurological or other impairment or injury o a need for regular or extensive instruction or supervision without which the ability of the [place] to function in daily life would be seriously impaired And, * It is in the best interest of the individual to participate in the program, and * Personal care services that would be provided by the Family Caregiver will not be simultaneously and regularly provided by or through another individual or entity, and * The individual receives care at home or will do so if DC designates a Family Caregiver, and * The individual receives ongoing care from a primary care team or will do so if DC designates a Family Caregiver. Table 2 - Approval and Designation of Primary and Secondary Caregivers (38 CFR 71.25) To be approved and designated as a Family Caregiver, the Family Caregiver Applicant must meet all of the following: * Submit a joint application, along with the [place] or meat team member * Participate in and complete necessary eligibility evaluations (along with the [place] or meat team member), education and training, and the initial home-care assessment * Be at least 18 years of age * Be either the eligible 's spouse, son, daughter, parent, step- family member or extended family member; or someone who lives with the eligible full-time or will do so if designated as a Family Caregiver * Have had no determination by VA of abuse or neglect of the eligible * Be assessed by VA as being able to complete caregiver education and training * Complete caregiver training and demonstrate the ability to carry out the specific personal care services, core competencies, and additional care requirements * Participate in an in-home care assessment which evaluates the 's well-being, the well-being of the caregiver and the caregiver's competence to provide personal care services at the eligible 's home Table 3 - Monthly Stipend Amount (38 CFR 71.40(C)(4)(i)(A)(1-2) and 1720G(a) (2)(C)(ii) and (iii)) Upon approval and designation, Primary Family Caregivers will receive a monthly stipend for each month's participation as a Primary Family Caregiver. If the eligible [place] meets the requirements identified in Table 1, the monthly stipend is calculated by multiplying the monthly stipend rate by 0.625. If the eligible is determined by VA to be unable to self-sustain in the community, the Primary Family Caregiver's monthly stipend is calculated by multiplying the monthly stipend rate by 1.00. * Unable to self-sustain in the community means the eligible [place] was assessed to: o Require personal care services each time he or she completes three or more of the seven ADLs listed in the definition of an inability to perform an ADL in 38 C.F.R. 71.15, and is fully dependent on a caregiver to complete such ADLs; and/or o Has a need for supervision or protection based on symptoms or residuals of neurological or other impairment or injury on a continuous basis (definition from 38 USC 1720G(a)(2)(C)(ii), continuous basis from 38 C.F.R. 71.15 definition of unable to self-sustain ); and/or o Has a need for regular or extensive instruction or supervision without which the ability of the [place] to function in daily life would be seriously impaired on a continuous basis (from 38 [place] 1720G(a)(2)(C)(iii), continuous basis from 38 C.F.R. 71.15 definition of unable to self- sustain ). /inge/ GISELLA MAYA PROFESSOR OF FLORICULTURE Signed: 11/02/2023 09:53 [facility] ([id number])
--- OUTSIDE RECORDS SUMMARY | 2024-10-17 15:30 | XMS_ITS | Encounter Summary ---
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 Organization [place] Address [address] [place] [address] Care Team Providers Care Director Health Name Role Phone GURPREET PEREZ Primary Care [...] Harding's Name Patient's Relationship to Policy Harding [facility] PLAN [facility] (WNR) MEDICARE ADVANTAGE [facility] (WNR) Oct 25, 2011 [facility] [id number] FATEMEH GOMEZ PATIENT Selected Encounter This section includes the information on record at [place] for the Encounter. Date/Time Encounter Type Encounter Description Reason Pro vider Source Aug 17, 2024 02:53 PM Outpatient Encounter OCCUPATIONAL THERAPY IHE Encounter Template [...] 20 appointments. The data comes from all [facility]. Appointment Date/Time Appointment Type Appointme nt Facility Name Aug 22, 2024 09:30 AM AMBULATORY - MEDICINE [facility] Aug 29, 2024 08:00 AM AMBULATORY - MEDICINE [facility] Sep 20, 2024 09:00 AM AMBULATORY - MEDICINE [facility] Oct 03, 2024 11:30 AM AMBULATORY - MEDICINE [facility] Active, Pending, and Scheduled Orders This section includes a listing of several types of active, pending, and scheduled orders, including clinic medications orders, diagnostic test orders, procedure orders and consult orders; where the start date of the order is 45 days before the date of the Encounter or 45 days after the date of theEncounter. The data comes from all [facility]. Test Date/Time Test Type Test Details Facility Name Aug 28, 2024 04:23 PM Consult Order COMMUNITY CARE-[facility] NON-SKILLED HOME HEALTH AIDE Cons [employer] [facility] Sep 20, 2024 10:06 AM Consult Order NUTRITION ASSESSMENT/EDUCATION/SPO PC OUTPT Cons [employer] [facility] Lab Results: +/- 30 days of the [...] Range Comment Aug 22, 2024 10:26 AM [facility] FOLATE (OX) Specimen Type: SERUM No comment entered. Ordering Provider: COURTNEY FAROOQ Report Released Date/Time: Aug 22, 2024 10:17 AM Reporting Lab: [facility] [address] [facility] [address] Performing Lab: [facility] [address] [facility] [address] FOLATE (WROX) 3.90 ng/mL L >5.2 Aug 22, 2024 10:26 AM [facility] RETICULOCYTES Specimen Type: BLOOD Comment: Smear reviewed, auto CBC w/Diff accepted. Ordering Provider: COURTNEY FAROOQ Report Released Date/Time: Aug 22, 2024 10:17 AM Reporting Lab: [address] [address] Performing Lab: [address] [address] RETIC % 2.6 H 0.6-2.0 RETIC, ABS 91.6 10*3/uL H 30.0-90.0 RET-HE % 29.6 27.9-42.0 Aug 22, 2024 10:26 AM [facility] IRON & TIBC PANEL Specimen Type: SERUM No comment entered. Ordering Provider: COURTNEY FAROOQ Report Released Date/Time: Aug 22, 2024 10:17 AM Reporting Lab: [address] [address] Performing Lab: [address] [address] TIBC 210 ug/dL 204-475 IRON 43 ug/dL 40-160 Transferrin Saturation 20.5 20.0-50.0 Transferrin (TRF) 159 mg/dL L 200-360 Aug 22, 2024 10:26 AM [facility] CBC AND DIFF (AUTO) Specimen Type: BLOOD Comment: Smear reviewed, auto CBC w/Diff accepted. Ordering Provider: COURTNEY FAROOQ Report Released Date/Time: Aug 22, 2024 10:17 AM Reporting Lab: [address] [address] Performing Lab: [address] [address] WBC 7.35 10*3/uL 4.50-11.00 RBC 3.51 10*6/uL [...] H 0.00-0.00 Aug 22, 2024 10:26 AM [facility] FERRITIN Specimen Type: SERUM No comment entered. Ordering Provider: COURTNEY FAROOQ Report Released Date/Time: Aug 22, 2024 10:17 AM Reporting Lab: [address] [address] Performing Lab: [address] [address] FERRITIN 1130 ng/mL H 20-300 Aug 22, 2024 10:26 AM [facility] VITAMIN B12 Specimen Type: SERUM No comment entered. Ordering Provider: COURTNEY FAROOQ Report Released Date/Time: Aug 22, 2024 10:17 AM Reporting Lab: [address] [address] Performing Lab: [address] [address] VITAMIN B12 378 pg/mL 200-900 Aug 22, 2024 10:26 AM [facility] BASIC METABOLIC PANEL (non-fasting) Spe cimen Type: SERUM No comment entered. Ordering Provider: COURTNEY FAROOQ Report Released Date/Time: Aug 22, 2024 10:17 AM Reporting Lab: [address] [address] Performing Lab: [address] [place] [address] UREA NITROGEN 12 mg/dL 7-25 GLUCOSE 104 mg/dL H 65-100 SODIUM 136 mmol/L 135-145 POTASSIUM 4.7 mmol/L 3.5-5.0 CHLORIDE 106 mmol/L 100-110 CO2 18 meq/L L 20-30 CREATININE, Serum 1.15 mg/dL 0.50-1.40 eGFR(CKD-EPI 2020) 65 mL/min >60 Aug 22, 2024 10:26 AM [facility] LIVER FUNCTION Specimen Type: SERUM No comment entered. Ordering Provider: COURTNEY FAROOQ Report Released Date/Time: Aug 22, 2024 10:17 AM Reporting Lab: [address] [address] Performing Lab: [address] [address] PROTEIN,TOTAL 6.0 g/dL 6.0-8.3 ALBUMIN 3.1 g/dL L 3.5-5.0 ALKALINE PHOSPHATASE 138 U/L 40-150 AST 27 U/L 5-34 ALT 36 U/L BILIRUBIN, TOTAL 1.0 mg/dL 0.2-1.2 Aug 16, 2024 01:58 PM [facility] URINALYSIS Specimen Type: URINE Comment: If Glucose = >500 and Ketones are positive, please alert the Physician. Ordering Provider: COURTNEY FAROOQ Report Released Date/Time: Aug 08, 2024 01:49 PM Reporting Lab: [address] [address] Performing Lab: [address] [address] UA COLOR Light-Yellow Yellow UA APPEARANCE Clear Clear UA GLUCOSE Normal mg/dL Negative UA KETONES NEGATIVE mg/dL Negative UA BLOOD NEGATIVE mg/dL Negative UA PROTEIN 10 mg/dL Negative UA NITRITE NEGATIVE mg/dL Negative UA BILIRUBIN NEGATIVE mg/dL Negative UA SPECIFIC GRAVITY 1.017 1.016-1.02 2 UA pH 6.0 5.0-9.0 UA UROBILINOGEN Normal mg/dL <2.0 UA LEUKOCYTE TRACE Negative Aug 16, 2024 01:58 PM [facility] MICROALBUMIN CREATININE RATIO PANEL Specimen Type: URINE No comment entered. Ordering Provider: COURTNEY FAROOQ Report Released Date/Time: Aug 08, 2024 01:49 PM Reporting Lab: [facility] [address] [facility] [address] Performing Lab: [address] [address] MICROALBUMIN/CR EATININE RATIO 7.3 mg/g 0-29.9 MICROALBUMIN,QU ANTITATIVE 0.8 mg/dL RR UNAVAIL CREATININE URINE 109.38 mg/dL Aug 16, 2024 01:58 PM [facility] MICROSCOPIC AUTOMATED, URINE Specimen Type: URINE Comment: If Glucose = >500 and Ketones are positive, please alert the Physician. Ordering Provider: COURTNEY FAROOQ Report Released Date/Time: Aug 08, 2024 01:49 PM Reporting Lab: [address] [address] Performing Lab: [facility] [address] [facility] [address] UA WBC 0-5 /[HPF] 0-5 UA BACTERIA 1+ /[HPF] NoneObs UA MUCUS FEW /[LPF] Trace UA HYALINE CASTS 2-4 /[LPF] 0-2 UA RBC 3-5 /[HPF] 0-3 Aug 15, 2024 10:14 AM [facility] BASIC METABOLIC PANEL (fasting) Specimen Type: SERUM No comment entered. Ordering Provider: COURTNEY FAROOQ Report Released Date/Time: Aug 08, 2024 01:49 PM Reporting Lab: [address] [address] Performing Lab: [address] [address] UREA NITROGEN 28 mg/dL H 7-25 GLUCOSE 98 mg/dL 65-100 SODIUM 133 mmol/L L 135-145 POTASSIUM 5.3 mmol/L H 3.5-5.0 CHLORIDE 106 mmol/L 100-110 CO2 15 meq/L L 20-30 CREATININE, Serum 1.31 mg/dL 0.50-1.40 eGFR(CKD-EPI 2020) 55 mL/min L >60 Aug 15, 2024 10:14 AM [facility] LIPID PANEL FASTING Specimen Type: SERUM No comment entered. Ordering Provider: COURTNEY FAROOQ Report Released Date/Time: Aug 08, 2024 01:49 PM Reporting Lab: [address] [address] Performing Lab: [address] [address] CHOLESTEROL 69 mg/dL TRIGLYCERIDE 88 mg/dL 0-150 LDL calculated 16 mg/dL 0-129 CHOL/HDL 2.0 HDL CHOLESTEROL 35 mg/dL L 40-60 Aug 15, 2024 10:14 AM [facility] LIVER FUNCTION Specimen Type: SERUM No comment entered. Ordering Provider: COURTNEY FAROOQ Report Released Date/Time: Aug 08, 2024 01:49 PM Reporting Lab: [address] [address] Performing Lab: [address] [address] PROTEIN,TOTAL 6.2 g/dL 6.0-8.3 ALBUMIN 3.2 g/dL L 3.5-5.0 ALKALINE PHOSPHATASE 103 U/L 40-150 AST 17 U/L 5-34 ALT 25 U/L BILIRUBIN, TOTAL 0.9 mg/dL 0.2-1.2 Aug 15, 2024 10:14 AM [facility] HEMOGLOBIN A1C PANEL Specimen Type: BLOOD [...] Aug 08, 2024 01:49 PM Reporting Lab: [address] [address] Performing Lab: [facility] [address] [facility] [address] HEMOGLOBIN A1C 6.7 H 4.0-5.6 Aug 15, 2024 10:14 AM [facility] TSH Specimen Type: SERUM No comment entered. Ordering Provider: COURTNEY FAROOQ Report Released Date/Time: Aug 08, 2024 01:49 PM Reporting Lab: [facility] [address] [facility] [address] Performing Lab: [facility] [address] [facility] [address] TSH 1.84 u[IU]/mL 0.35-5.00 Aug 15, 2024 10:14 AM [facility] CBC AND DIFF (AUTO) Specimen Type: BLOOD No comment entered. Ordering Provider: COURTNEY FAROOQ Report Released Date/Time: Aug 08, 2024 01:49 PM Reporting Lab: [facility] [address] [facility] [address] Performing Lab: [address] [address] WBC 7.54 10*3/uL 4.50-11.00 RBC 3.63 10*6/uL [...] 10*3/uL 0.00-0.00 Aug 15, 2024 10:14 AM [facility] CALCIUM Specimen Type: SERUM No comment entered. Ordering Provider: COURTNEY FAROOQ Report Released Date/Time: Aug 08, 2024 01:49 PM Reporting Lab: [address] [address] Performing Lab: [address] [address] CALCIUM 8.5 mg/dL 8.5-10.2 Aug 15, 2024 10:14 AM [facility] URIC ACID Specimen Type: SERUM No comment entered. Ordering Provider: COURTNEY FAROOQ Report Released Date/Time: Aug 08, 2024 01:49 PM Reporting Lab: [address] [address] Performing Lab: [address] [address] URIC ACID 7.9 mg/dL H 3.5-7.2 Aug 15, 2024 10:14 AM [facility] VITAMIN D (25-OH) Specimen Type: SERUM No comment entered. Ordering Provider: COURTNEY FAROOQ Report Released Date/Time: Aug 08, 2024 01:49 PM Reporting Lab: [address] [address] Performing Lab: [address] [address] VITAMIN D (25-OH) <13 ng/mL L 20-50 [...] 03, 2023 08:58 AM [place]-TOBACCO FORMER USER [facility] Tobacco Use History This section includes a history of the smoking, or tobacco-related health factors, that were collected on or before the date of the Encounter. The data comes from the [place] facility where the Encounter took place. Date/Time Smoking Status/Tobacco Use Comment F acility Jun 03, 2023 08:58 AM [place]-TOBACCO QUIT 15 YRS OR MORE [facility] Advance Directives: All historical and current [...] Jun 30, 2019 ADVANCE DIRECTIVE CASSIE POWELL [facility] Encounter Notes: All associated encounter notes This section contains the clinical notes associated to the Encounter. Date/Time Encounter Note(s) Provider Source Aug 17, 2024 02:53 PM ADMINISTRATIVE NOTE: LOCAL TITLE: ADMINISTRATIVE NOTE STANDARD TITLE: ADMINISTRATIVE NOTE DATE OF NOTE: AUG 17, 2024@14:53 ENTRY DATE: AUG 17, 2024@14:53:58 AUTHOR: PAMELA JAY EXP COSIGNER: PRITI GONZALES URGENCY: STATUS: COMPLETED ADMINISTRATIVE NOTE Has ADDENDA Date of note:08/17/24 [facility] C called asking to speak with ROMAN Gonzales regarding HISA justina, questions regarding the justina. [phone] /inge/ EDDIE HOWELL OCCUPATION SERVER DEVELOPER Signed: 08/17/2024 14:56 /inge/ PRITI GONZALES OTR/L OCCUPATIONAL THERAPIST Cosigned: 08/18/2024 07:35 08/18/2024 ADDENDUM STATUS: COMPLETED Called back to discuss questions, no one available number provided for Prostheic Rep related to HISA questions. /inge/ ROMAN GREGORY/Glen OCCUPATIONAL THERAPIST Signed: 08/18/2024 07:35 [facility]
--- OUTSIDE RECORDS SUMMARY | 2024-10-17 15:30 | XMS_ITS ---
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 Organization [place] Address [address] [place] [address] Care Team Providers Care Supervisor Assembling Name Role Phone GURPREET PEREZ Primary Care [...] Name Patient's Relationship to Policy Harding [facility] PLAN [facility] (WNR) MEDICARE ADVANTAGE [facility] (WNR) Oct 25, 2011 [facility] [id number] FATEMEH GOMEZ PATIENT Selected Encounter This [...] The data comes from all [facility]. Appointment Date/Time Appointment Type Appointme nt Facility Name Dec 08, 2023 08:00 AM [facility] Feb 05, 2024 08:00 AM [facility] February 25, 2024 02:00 PM [facility] Mar 30, 2024 10:00 AM AMBULATORY - REHAB MEDICIN E [facility] Active, Pending, and Scheduled Orders This section includes a listing of several types of active, pending, and scheduled orders, including clinic medications orders, diagnostic test orders, procedure orders and consult orders; where the start date of the order is 45 days before the date of the Encounter or 45 days after the date of theEncounter. The data comes from all [facility]. Test Date/Time Test Type Test Details Facility Name Oct 08, 2023 12:00 AM Laboratory - Chemi stry Order BASIC METABOLIC PANEL (fasting) BLOOD (SST-SERUM) [facility] Oct 08, 2023 12:00 AM Laboratory - Chemi stry Order LIPID PANEL FASTING BLOOD (SST-SERUM) [facility] Oct 08, 2023 12:00 AM Laboratory - Chemi stry Order LIVER FUNCTION BLOOD (SST-SERUM) [facility] Oct 08, 2023 12:00 AM Laboratory - Chemi stry Order CBC AND DIFF (AUTO) BLOOD (LAV-BLOOD) [facility] Oct 08, 2023 12:00 AM Laboratory - Chemi stry Order HEMOGLOBIN A1C PANEL BLOOD (LAV-BLOOD) [facility] Oct 08, 2023 12:00 AM Laboratory - Chemi stry Order TSH BLOOD (SST-SERUM) [facility] Social History: Smoking Status (Most current) [...] 03, 2023 08:58 AM VA-TOBACCO FORMER USER [facility] Tobacco Use History This section includes a history of the smoking, or tobacco-related health factors, that were collected on or before the date of the Encounter. The data comes from the [place] facility where the Encounter took place. Date/Time Smoking Status/Tobacco Use Comment F acility Jun 03, 2023 08:58 AM VA-TOBACCO QUIT 15 YRS OR MORE [facility] Advance Directives: All historical and [...] Jun 30, 2019 ADVANCE DIRECTIVE CASSIE POWELL [facility] Encounter Notes: All associated encounter notes This section contains the clinical notes associated to the Encounter. Date/Time Encounter Note(s) Provider Source Nov 08, 2023 12:00 AM NONVA CONSULT: LOCAL TITLE: COMMUNITY CARE-CONSULT RESULT NOTE STANDARD TITLE: NONVA CONSULT DATE OF NOTE: NOV 08, 2023 ENTRY DATE: NOV 29, 2023@15:01:35 AUTHOR: LIBAN TRIMBLE EXP COSIGNER: URGENCY: STATUS: COMPLETED VistA Imaging - Scanned Document SCANNED DOCUMENT SIGNATURE NOT REQUIRED Electronically Filed: 11/29/2023 by: LIBAN TRIMBLE MEDICAL UNCRATER LIBAN TRIMBLE [facility]
--- OUTSIDE RECORDS SUMMARY | 2024-10-17 15:30 | XMS_ITS | Encounter Summary ---
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 Organization [place] Address [address] [place] [address] Care Team Providers Care Reducing Machine Operator Name Role Phone GURPREET PEREZ [...] Patient's Relationship to Policy Harding [facility] (WNR) MEDICARE ADVANTAGE [facility] (WNR) Oct 25, 2011 [facility] [id number] FATEMEH OGMEZ PATIENT Selected Encounter This section includes the information on record at [place] for the Encounter. Date/Time Encounter Type Encounter Description Reason Provider Source Oct 26, 2023 01:07 PM Outpatient Encounter PRIMARY CARE/MEDICINE CASSIE OLEARY Encounter Template Text not used by [place] Plan of Treatment: Future Appointments (+ 6 [...] 20 appointments. The data comes from all [facility]. Appointment Date/Time Appointment Type Appointme nt Facility Name Oct 27, 2023 12:40 PM AMBULATORY [place] MEDICINE [place] [facility] [place] [facility] Dec 08, 2023 08:00 AM AMBULATORY - MEDICINE [place] [facility] [facility] [place] [facility] Feb 05, 2024 08:00 AM AMBULATORY - MEDICINE [place] [facility] [place] [facility] February 25, 2024 02:00 PM AMBULATORY - REHAB MEDICIN E [place] [facility] [place] [facility] Mar 30, 2024 10:00 AM AMBULATORY - REHAB MEDICIN E [place] [facility] [place] [facility] Active, Pending, and Scheduled Orders This section includes a listing of several types of active, pending, and scheduled orders, including clinic medications orders, diagnostic test orders, procedure orders and consult orders; where the start date of the order is 45 days before the date of the Encounter or 45 days after the date of theEncounter. The data comes from all [facility]. Test Date/Time Test Type Test Details Facility Name Oct 08, 2023 12:00 AM Laboratory - Chemi stry Order BASIC METABOLIC PANEL (fasting) BLOOD (SST-SERUM) [facility] Oct 08, 2023 12:00 AM Laboratory - Chemi stry Order LIPID PANEL FASTING BLOOD (SST-SERUM) [facility] Oct 08, 2023 12:00 AM Laboratory - Chemi stry Order LIVER FUNCTION BLOOD (SST-SERUM) [facility] Oct 08, 2023 12:00 AM Laboratory - Chemi stry Order CBC AND DIFF (AUTO) BLOOD (LAV-BLOOD) [facility] Oct 08, 2023 12:00 AM Laboratory - Chemi stry Order HEMOGLOBIN A1C PANEL BLOOD (LAV-BLOOD) [facility] Oct 08, 2023 12:00 AM Laboratory - Chemi stry Order TSH BLOOD (SST-SERUM) [facility] Social History: Smoking Status (Most current) and Tobacco Use (All prior to encounter date) This section includes the most current, and the historical, smoking and tobacco- related health factors from the [place] facility where the Encounter took place. Current Smoking Status This section includes the most current smoking, or tobacco-related health factor, from the [place] facility where the Encounter took place. Date/Time Current Smoking Status Comment Facil ity Jun 03, 2023 08:58 AM VA-TOBACCO FORMER USER [facility] Tobacco Use History This section includes a history of the smoking, or tobacco-related health factors, that were collected on or before the date of the Encounter. The data comes from the [place] facility where the Encounter took place. Date/Time Smoking Status/Tobacco Use Comment F acility Jun 03, 2023 08:58 AM VA-TOBACCO QUIT 15 YRS OR MORE [facility] Advance Directives: All historical and current Section Date Range: From patient's date of to the date document was created. This section includes ALL of a patient's completed or amended [place] Advance and Rescinded Directives. The entries below indicate that a directive exists for the patient, but an actual copy is not included with this document. The data comes from all [place] facilities. Date Advance Directives Provider Source Jul 15, 2023 ADVANCE DIRECTIVE ROGER PEDRAZA Jun 30, 2019 ADVANCE DIRECTIVE CASSIE POWELL [facility] Encounter Notes: All associated encounter notes This section contains the clinical notes associated to the Encounter. Date/Time Encounter Note(s) Provider Source Oct 26, 2023 01:07 PM PRIMARY CARE Complexa E MESSAGING: LOCAL TITLE: PRIMARY CARE SECURE MESSAGING STANDARD TITLE: PRIMARY CARE SECURE MESSAGING DATE OF NOTE: OCT 26, 2023@13:07 ENTRY DATE: OCT 26, 2023@13:07:39 AUTHOR: CASSIE OLEARY EXP COSIGNER: URGENCY: STATUS: COMPLETED ------Original Message ------- Sent: 10/26/2023 01:07 PM ET From: CASSIE OLEARY To: FATEMEH GOMEZ Subject: General:General Inquiry Good afternoon, I do see that community care [facility] inpatient rehab consult that with authorization start date of 06/03/23 in Fatemeh's chart. If you are in need of discussing the billing issue with the [place] I would recommend that you contact the billing department at [phone] extension [phone] or [phone]. Best regards, RUSSEL Ocampo /inge/ RONN MARTINEZ RN-BC REGISTERED NURSE Signed: 10/26/2023 13:07 CASSIE OLEARY [facility]
--- OUTSIDE RECORDS SUMMARY | 2024-10-17 15:30 | XMS_ITS ---
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 Organization [place] Address [address] [place] [address] Care Team Providers Care Die Set Up Worker Name Role Phone GURPREET PEREZ Primary Care [...] Name Patient's Relationship to Policy Harding [facility] PLAN [facility] (WNR) MEDICARE ADVANTAGE [facility] (WNR) Oct 25, 2011 [facility] [id number] PATIENT Selected Encounter This [...] - MEDICINE [place] [facility] Feb 05, 2024 08:00 AM AMBULATORY - MEDICINE [place] [facility] February 25, 2024 02:00 PM AMBULATORY - REHAB MEDICIN E [place] [facility] Mar 30, 2024 10:00 AM AMBULATORY - REHAB MEDICIN E [place] [facility] May 12, 2024 11:30 AM AMBULAT[place] - [place] [facility] [facility] Active, Pending, and Scheduled Orders [...] Order BASIC METABOLIC PANEL (fasting) BLOOD (SST-SERUM) [facility] Oct 08, 2023 12:00 AM Laboratory - Chemi stry Order LIPID PANEL FASTING BLOOD (SST-SERUM) [facility] Oct 08, 2023 12:00 AM Laboratory - Chemi stry Order LIVER FUNCTION BLOOD (SST-SERUM) [facility] Oct 08, 2023 12:00 AM Laboratory - Chemi stry Order CBC AND DIFF (AUTO) BLOOD (LAV-BLOOD) [facility] Oct 08, 2023 12:00 AM Laboratory - Chemi stry Order HEMOGLOBIN A1C PANEL BLOOD (LAV-BLOOD) [facility] Oct 08, 2023 12:00 AM Laboratory - Chemi stry Order TSH BLOOD (SST-SERUM) [facility] Social History: Smoking Status (Most [...] 03, 2023 08:58 AM [place]-TOBACCO FORMER USER [facility] Tobacco Use History This section includes a history of the smoking, or tobacco-related health factors, that were collected on or before the date of the Encounter. The data comes from the [place] facility where the Encounter took place. Date/Time Smoking Status/Tobacco Use Comment F acility Jun 03, 2023 08:58 AM [place]-TOBACCO QUIT 15 YRS OR MORE [facility] Advance Directives: All historical and current [...] Jun 30, 2019 ADVANCE DIRECTIVE CASSIE POWELL [facility] Encounter Notes: All associated encounter notes This section contains the clinical notes associated to the Encounter. Date/Time Encounter Note(s) Provider Source Nov 15, 2023 12:00 AM NONVA CONSULT: LOCAL TITLE: COMMUNITY CARE-CONSULT RESULT NOTE STANDARD TITLE: NONVA CONSULT DATE OF NOTE: NOV 15, 2023 ENTRY DATE: DEC 02, 2023@15:01:08 AUTHOR: LIBAN TRIMBLE EXP COSIGNER: URGENCY: STATUS: COMPLETED VistA Imaging - Scanned Document SCANNED DOCUMENT SIGNATURE NOT REQUIRED Electronically Filed: 12/02/2023 by: LIBAN TRIMBLE MEDICAL SUBSTATION DESIGN DRAFTSPERSON LIBAN TRIMBLE [facility]
--- OUTSIDE RECORDS SUMMARY | 2024-10-17 15:30 | XMS_ITS ---
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 Organization [facility] [place] Address [address] [place] [address] Care Team Providers Care Optical Technician Name Role Phone GURPREET PEREZ Primary [...] Harding's Name Patient's Relationship to Policy Harding [facility] (WNR) MEDICARE ADVANTAGE [facility] (WNR) Oct 25, 2011 [facility] [id number] PATIENT Selected Encounter This section includes the information on record at [place] for the Encounter. Date/Time Encounter Type Encounter Description Reason Provider Source Oct 27, 2023 12:40 PM FIT SPECTACLES MULTIFOCAL OPTOMETRY ICD-10-CM Z46.0 Encounter for fit/adjst of spectacles and contact lenses [facility] Encounter Template Text not used by VA Assessments - Encounter Diagnoses This section includes the primary and secondary diagnoses documented for the Encounter. Date/Time Primary/Secondary Diagnosis Diagnosis Name Provider Source Oct 27, 2023 01:28 PM PRIMARY Encounter for fit/adjst of spectacles and contact lenses [facility] Plan of Treatment: Future Appointments (+ 6 months) and Future Tests (+/- 45 days) The Plan of Treatment section includes future care activities for the patient [facility] [place] [facility] This section includes future [...] 08, 2023 08:00 AM AMBULATORY - MEDICINE [facility] Feb 05, 2024 08:00 AM AMBULATORY - MEDICINE [facility] [place] [facility] February 25, 2024 02:00 PM AMBULATORY - [place] [facility] Mar 30, 2024 10:00 AM [facility] Active, Pending, and Scheduled Orders [...] Order BASIC METABOLIC PANEL (fasting) BLOOD (SST-SERUM) [facility] Oct 08, 2023 12:00 AM Laboratory - Chemi stry Order LIPID PANEL FASTING BLOOD (SST-SERUM) [facility] Oct 08, 2023 12:00 AM Laboratory - Chemi stry Order LIVER FUNCTION BLOOD (SST-SERUM) [facility] Oct 08, 2023 12:00 AM Laboratory - Chemi stry Order CBC AND DIFF (AUTO) BLOOD (LAV-BLOOD) [facility] Oct 08, 2023 12:00 AM Laboratory - Chemi stry Order HEMOGLOBIN A1C PANEL BLOOD (LAV-BLOOD) [facility] Oct 08, 2023 12:00 AM Laboratory - Chemi stry Order TSH BLOOD (SST-SERUM) [facility] Social History: Smoking Status (Most current) and [...] Facil ity Jun 03, 2023 08:58 AM [place]-TOBACCO FORMER USER [facility] Tobacco Use History This section includes a history of the smoking, or tobacco-related health factors, that were collected on or before the date of the Encounter. The data comes from the [place] facility where the Encounter took place. Date/Time Smoking Status/Tobacco Use Comment F acility Jun 03, 2023 08:58 AM [place]-TOBACCO QUIT 15 YRS OR MORE [facility] Advance Directives: All historical and current [...] Jun 30, 2019 ADVANCE DIRECTIVE CASSIE POWELL [facility] Encounter Notes: All associated encounter notes This section contains the clinical notes associated to the Encounter. Date/Time Encounter Note(s) Provider Source Oct 27, 2023 01:22 PM OPTOMETRY NOTE: LOCAL TITLE: OPTOMETRY NOTE STANDARD TITLE: OPTOMETRY NOTE DATE OF NOTE: OCT 27, 2023@13:22 ENTRY DATE: OCT 27, 2023@13:22:29 AUTHOR: [facility] HID[place] COSIGNER: URGENCY: STATUS: COMPLETED Patient came in today with outside RX: [facility] [address] [address] PH: [phone] Exam Date: 08/16/2023 OD: +0.50 -1.00 100 OS: +1.50 -1.00 90 ADD:+2.75 PAL, POLY, A/R coating FX3 Gunmetal 50/20/145 PD:62.5-59.5 SEGHT: / [facility] SEGURA GWEN [facility] Signed: 10/27/2023 13:28 [place] [facility]
--- OUTSIDE RECORDS SUMMARY | 2024-10-17 15:30 | XMS_ITS | Encounter Summary ---
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) Organization [facility] [place] Address [address] [place] [address] Care Team Providers Care Carousel Operator Name Role Phone GURPREET PEREZ Primary [...] Harding's Name Patient's Relationship to Policy Harding [facility] PLAN [facility] (WNR) MEDICARE ADVANTAGE [facility] (WNR) Oct 25, 2011 [facility] [id number] PATIENT Selected Encounter This section includes the information on record at [place] for the Encounter. Date/Time Encounter Type Encounter Description Reason Pro vider Source Oct 19, 2023 12:00 PM Outpatient Encounter COMMUNITY CARE [...] 20 appointments. The data comes from all [facility]. Appointment Date/Time Appointment Type Appointme nt Facility Name Oct 27, 2023 12:40 PM AMBULATORY - MEDICINE [place] [facility] Dec 08, 2023 08:00 AM AMBULATORY - MEDICINE [place] [facility] Feb 05, 2024 08:00 AM AMBULATORY - MEDICINE [place] [facility] February 25, 2024 02:00 PM AMBULATORY - REHAB MEDICIN E [place] [facility] Mar 30, 2024 10:00 AM AMBULATORY - [facility] E [place] [facility] Active, Pending, and Scheduled Orders This section includes a listing of several types of active, pending, and scheduled orders, including clinic medications orders, diagnostic test orders, procedure orders and consult orders; where the start date of the order is 45 days before the date of the Encounter or 45 days after the date of theEncounter. The data comes from all [facility]. Test Date/Time Test Type Test Details Facility Name Oct 08, 2023 12:00 AM Laboratory - Chemi stry Order BASIC METABOLIC PANEL (fasting) BLOOD (SST-SERUM) [facility] Oct 08, 2023 12:00 AM Laboratory - Chemi stry Order LIPID PANEL FASTING BLOOD (SST-SERUM) [facility] Oct 08, 2023 12:00 AM Laboratory - Chemi stry Order LIVER FUNCTION BLOOD (SST-SERUM) [facility] Oct 08, 2023 12:00 AM Laboratory - Chemi stry Order CBC AND DIFF (AUTO) BLOOD (LAV-BLOOD) [facility] Oct 08, 2023 12:00 AM Laboratory - Chemi stry Order HEMOGLOBIN A1C PANEL BLOOD (LAV-BLOOD) [facility] Oct 08, 2023 12:00 AM Laboratory - Chemi stry Order TSH BLOOD (SST-SERUM) [facility] Social History: Smoking Status (Most current) and [...] Facil ity Jun 03, 2023 08:58 AM [place]-TOBACCO FORMER USER [facility] Tobacco Use History This section includes a history of the smoking, or tobacco-related health factors, that were collected on or before the date of the Encounter. The data comes from the [place] facility where the Encounter took place. Date/Time Smoking Status/Tobacco Use Comment F acility Jun 03, 2023 08:58 AM [place]-TOBACCO QUIT 15 YRS OR MORE [facility] Advance Directives: All historical and [...] Jun 30, 2019 ADVANCE DIRECTIVE CASSIE POWELL [facility] Encounter Notes: All associated encounter notes This section contains the clinical notes associated to the Encounter. Date/Time Encounter Note(s) Provider Source Oct 19, 2023 12:00 PM NONVA CONSULT: LOCAL TITLE: COMMUNITY CARE-CONSULT RESULT NOTE STANDARD TITLE: NONVA CONSULT DATE OF NOTE: OCT 19, 2023@12:00 ENTRY DATE: NOV 16, 2023@14:22:33 AUTHOR: YUNIEL SANDERS EXP COSIGNER: URGENCY: STATUS: COMPLETED VistA Imaging - Scanned Document SCANNED DOCUMENT SIGNATURE NOT REQUIRED Electronically Filed: 11/16/2023 by: YUNIEL LUIS [facility]
--- OUTSIDE RECORDS SUMMARY | 2024-10-17 15:30 | XMS_ITS ---
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 [place]) Organization [facility] [place] Address [address] [place] [address] Care Team Providers Care Commercial Lines Account Manager Name Role Phone GURPREET PEREZ Primary [...] Name Patient's Relationship to Policy Harding [facility] PLAN [facility] (WNR) MEDICARE ADVANTAGE [facility] (WNR) Oct 25, 2011 [facility] [id number] PATIENT Selected Encounter This section includes the information on record at [place] for the Encounter. Date/Time Encounter Type Encounter Description Reason Pro vider Source Nov 03, 2023 12:00 AM Outpatient Encounter COMMUNITY CARE [...] 20 appointments. The data comes from all [facility]. Appointment Date/Time Appointment Type Appointme nt Facility Name Dec 08, 2023 08:00 AM [facility] Feb 05, 2024 08:00 AM [facility] February 25, 2024 02:00 PM AMBULATORY - [facility] Mar 30, 2024 10:00 AM AMBULATORY - REHAB MEDICIN E [facility] Active, Pending, and Scheduled Orders This section includes a listing of several types of active, pending, and scheduled orders, including clinic medications orders, diagnostic test orders, procedure orders and consult orders; where the start date of the order is 45 days before the date of the Encounter or 45 days after the date of theEncounter. The data comes from all [facility]. Test Date/Time Test Type Test Details Facility Name Oct 08, 2023 12:00 AM Laboratory - Chemi stry Order BASIC METABOLIC PANEL (fasting) BLOOD (SST-SERUM) [facility] Oct 08, 2023 12:00 AM Laboratory - Chemi stry Order LIPID PANEL FASTING BLOOD (SST-SERUM) [facility] Oct 08, 2023 12:00 AM Laboratory - Chemi stry Order LIVER FUNCTION BLOOD (SST-SERUM) [facility] Oct 08, 2023 12:00 AM Laboratory - Chemi stry Order CBC AND DIFF (AUTO) BLOOD (LAV-BLOOD) [facility] Oct 08, 2023 12:00 AM Laboratory - Chemi stry Order HEMOGLOBIN A1C PANEL BLOOD (LAV-BLOOD) [facility] Oct 08, 2023 12:00 AM Laboratory - Chemi stry Order TSH BLOOD (SST-SERUM) [facility] Social History: Smoking Status (Most current) [...] 03, 2023 08:58 AM [place]-TOBACCO FORMER USER [facility] Tobacco Use History This section includes a history of the smoking, or tobacco-related health factors, that were collected on or before the date of the Encounter. The data comes from the [place] facility where the Encounter took place. Date/Time Smoking Status/Tobacco Use Comment F acility Jun 03, 2023 08:58 AM [place]-TOBACCO QUIT 15 YRS OR MORE [facility] Advance Directives: All historical and [...] Jun 30, 2019 ADVANCE DIRECTIVE CASSIE POWELL [facility] Encounter Notes: All associated encounter notes This section contains the clinical notes associated to the Encounter. Date/Time Encounter Note(s) Provider Source Nov 03, 2023 12:00 AM NONVA CONSULT: LOCAL TITLE: COMMUNITY CARE-CONSULT RESULT NOTE STANDARD TITLE: NONVA CONSULT DATE OF NOTE: NOV 03, 2023 ENTRY DATE: NOV 23, 2023@16:05:05 AUTHOR: BHARAT SANTIAGO EXP COSIGNER: URGENCY: STATUS: COMPLETED VistA Imaging - Scanned Document SCANNED DOCUMENT SIGNATURE NOT REQUIRED Electronically Filed: 11/23/2023 by: BHARAT NIXON [facility]
--- OUTSIDE RECORDS SUMMARY | 2024-10-17 15:30 | XMS_ITS | Encounter Summary ---
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 Affairs ([place]) Organization [facility] [place]) Address [address] [place] [address] Care Team Providers Care Mold Carrier Name Role Phone GURPREET PEREZ Primary [...] Harding's Name Patient's Relationship to Policy Harding [facility] (WNR) MEDICARE ADVANTAGE [facility] (WNR) Oct 25, 2011 [facility] [id number] PATIENT Selected Encounter This section includes the information on record at [place] for the Encounter. Date/Time Encounter Type Encounter Description Reason Provider Source Nov 05, 2023 07:01 AM PROGRAM INTAKE ASSESSMENT CAREGIVER SUPPORT PROGRAM ICD-10-CM Z74.1 Need for assistance with personal care DEMARCUS BUI Luisito Encounter Template Text not used by [place] Assessments - Encounter Diagnoses This section includes the primary and secondary diagnoses documented for the Encounter. Date/Time Primary/Secondary Diagnosis Diagnosis Name Provider Source Nov 05, 2023 02:22 PM PRIMARY Need for assistance with personal care DEMARCUS BUI [facility] Plan of Treatment: Future Appointments (+ 6 months) and Future Tests (+/- 45 days) The Plan of Treatment section includes future care activities for the patient from [facility] [place] [facility]. This section includes future appointments and future orders which are active, pending or scheduled. Future Appointments This section includes appointments that were scheduled to occur 6 months from the date of the Encounter, up to a maximum of 20 appointments. The data comes from all [facility]. Appointment Date/Time Appointment Type Appointme nt Facility Name Dec 08, 2023 08:00 AM [facility] Feb 05, 2024 08:00 AM [facility]ULAT[facility] - MEDICINE [facility] [place] [facility] February 25, 2024 02:00 PM [facility] Mar 30, 2024 10:00 AM [facility] Active, Pending, and Scheduled Orders This section includes a listing of several types of active, pending, and scheduled orders, including clinic medications orders, diagnostic test orders, procedure orders and consult orders; where the start date of the order is 45 days before the date of the Encounter or 45 days after the date of theEncounter. The data comes from all [facility]. Test Date/Time Test Type Test [...] 03, 2023 08:58 AM VA-TOBACCO FORMER USER [facility] Tobacco Use History This section includes a history of the smoking, or tobacco-related health factors, that were collected on or before the date of the Encounter. The data comes from the [place] facility where the Encounter took place. Date/Time Smoking Status/Tobacco Use Comment F acility Jun 03, 2023 08:58 AM [place]-TOBACCO QUIT 15 YRS OR MORE [facility] Advance Directives: All historical and current [...] Jun 30, 2019 ADVANCE DIRECTIVE CASSIE POWELL [facility] Encounter Notes: All associated encounter notes This section contains the clinical notes associated to the Encounter. Date/Time Encounter Note(s) Provider Source Nov 05, 2023 07:01 AM CAREGIVER CERTIFICATE: [facility] INSTRUMENT STANDARD TITLE: CAREGIVER CERTIFICATE DATE OF NOTE: NOV 05, 2023@07:01 ENTRY DATE: NOV 05, 2023@07:01:38 AUTHOR: DEMARCUS BUI COSIGNER: URGENCY: STATUS: COMPLETED FUNCTIONAL ASSESSMENT INSTRUMENT The Program of Comprehensive Assistance for Family Caregivers (PCAFC) provides services and additional benefits to approved and designated Family Caregivers of eligible Veterans or service members who are in need of personal care services for a minimum of six continuous months based on any one of the following: - An inability to perform an activity of daily living; or - A need for supervision, protection, or instruction. The assessment of the need for personal care services is just one piece of the overall application process. This [place] Functional Assessment Instrument captures the or rv servicer's functional needs, as it relates to the requirements for the [facility]. This assessment instrument should only be used with Veterans or service members who have applied to the [facility] and a consult has been placed for this assessment by a Caregiver [employer]. The author completing this assessment must be in compliance with all required Caregiver Support Program and VA trainings. VA Video Connect (VV) Standard Documentation VV Clinician Resources Only: E911 (Emergency Call Relay Center): [phone] [facility] Line - (7-273-440-PWJS) press #1. MAYURI Suicide Coordinator ? [phone], Ext. [phone]; Back-up Ext. [phone] Curriculum Developer of the Day(AOD), Salvador MESSINA [phone], Ext. [phone] Introduction: Visit is being conducted by [place] [facility]. identified with 2 identifiers: [ X] Full Name [ X] Date of [ ] Address [ ] VA ID Card Emergency Plan: [place] confirmed and/or provided the following information in case of emergency [place]'s phone number: [place]'s present location and address for appointment: [address] [place] [address] [place]'s emergency contact name and phone number: Maria C [place] reported that location is private and safe: Yes (X) No () Informed Consent: informed of the risks and benefits of Telehealth video care. has the right to refuse video services. If refuses video visit, a [id number] visit will be scheduled. [place] verbalized consent for this video visit: Yes (X) No () [place] provided consent for any other persons present for visit: Yes (X) No ( ) If yes, who and relationship to patient: spouse Maria C Secure visit: Visit was locked for security and privacy:Yes(X) No( ) PART A: ACTIVITIES OF DAILY LIVING (ADLs) EATING Eating: Set-up or clean-up assistance Defined as: The ability to use suitable utensils to bring food and/or liquid to the mouth and swallow food and/or liquid once the meal is placed before the person. Caregiver reports 75% of the time is independent. She cuts up meat for him or watches to ensure he cuts up food properly. has history of coughing episodes and aspiration PNA so she ensures food is cut in small pieces. GROOMING Oral hygiene: Set-up or clean-up assistance Defined as: The ability to use suitable items to clean teeth. If applicable, the ability to insert and remove dentures into and from the mouth, and manage denture soaking and rinsing with use of equipment. has upper and lower dentures. is able to put them in/take them out independently. Caregiver reminds [place] to take them out at night and puts teeth in cup with cleanser. [place] able to shave himself with electric razor Wash upper body: Not applicable - person does not usually do this activity Defined as: The ability to wash, rinse, and dry the face, hands, chest, and arms while sitting in a chair or bed. typically showers BATHING Shower/bathe self: Partial/moderate assistance Defined as: The ability to bathe self, including washing, rinsing, and drying self. Does not include transferring in/out of tub/shower. [place] has walk in shower with grab bars and shower seat. He is able to wash his upper body and Caregiver (or RESIDENTIAL LIFE DIRECTOR) assists with washing lower body including bottom/backside. Approx once/week he doesn't feel like showering and they will give him a sponge bath. They wrap him in a towel to dry. DRESSING AND UNDRESSING Upper body dressing: Supervision or touching assistance Defined as: The ability to dress and undress above the waist, including fasteners (if applicable). Caregiver guides [place]'s hand through sleeve on one side. She reports having to tell the [place] to slow down so she can get the other arm through otherwise he moves too quickly. She assists with getting shirt over [place]'s head otherwise he may get stuck and lose his hearing aids. Lower body dressing: Substantial/maximal assistance Defined as: The ability to dress and undress below the waist, including fasteners; does not include footwear. With seated, Caregiver threads underwear over feet and up to knees. She reports having to lift and position his L leg which is like weight. She then threads sweatpants on same way. 's L foot turns in and w/o assistance he tries putting both feet in one pant leg. With standing, he holds onto CG neck for support and she pulls pants up. She does this with him standing in front of a chair in case he has to sit. CG reports [place] has taken clothes off by himself. Putting on/taking off footwear: Substantial/maximal assistance Defined as: The ability to put on and take off socks and shoes, or other footwear that is appropriate for safe mobility, including fasteners (if applicable). [place] typically wears just socks around the home. CG reports carpeting in every room except kitchen and bathroom. CG assists with donning/doffing socks as [place] loses balance and starts coughing when bending over. TOILETING Toileting hygiene: Partial/moderate assistance Defined as: The ability to maintain perineal/menstrual hygiene and adjust clothes before and after voiding or having a bowel movement. If managing an ostomy, include wiping the opening but not managing equipment. [place] wears incontinence briefs at night and when going out. During the day he is trying to wear underwear with occasional accidents. CG reports he is normally able to make it to the bathroom on time. CG assists with clothing management as [place] is unsteady on his feet. At night, caregiver brings urinal to ; she holds onto it while [place] holds bed side rail for support. CG empties urinal. CG reports does not maintain hygiene well - at night before putting on depends, she washes his backside. PROSTHETICS Prosthetics (Use of Assistive Devices): Not applicable - Person does not usually do this activity Defined as: Able to adjust special prosthetic or orthopedic appliances. The adjustment of appliances that any person with or without a disability would need assistance with should not be scored (for example, supports, belts, lacing at back, etc.). MOBILITY (POSITIONING/TRANSFERS) Roll left and right: Independent Defined as: The ability to roll from lying on back to left and right side, and return to lying on back. has adjustable bed with side rail. He is able to roll/position independently Sit to lying: Independent Defined as: The ability to move from sitting on side of bed to lying flat on the bed. Lying to sitting on side of bed: Independent Defined as: The ability to move from lying on the back to sitting on the side of the bed with feet flat on the floor and with no back support. Sit to stand: Supervision or touching assistance Defined as: The ability to come to a standing position from sitting in a chair, wheelchair, or on the side of the bed. CG reports this depends on type of chair Liana is sitting in. In sturdy kitchen chair he is generally able to stand independently. On softer chair or bedside, she provides instruction hold something firm or when he attempts to use his cane for support she instructs him to use the walker for more stability Chair/[id number]-wx-[id number] transfer: Not applicable - person does not usually do this activity Defined as: The ability to transfer to and from a bed to a chair (or wheelchair). Toilet transfer: Independent Defined as: The ability to get on and off a toilet or commode. Liana is able to get on/off toilet himself. Toilet seat has frame with bars on each side and a sink next to the toilet which he holds onto for support. MOBILITY (WALKING) Walk 10 feet: Supervision or touching assistance Defined as: Once standing, the ability to walk at least 10 feet in a room, corridor, or similar space. CG keeps an eye out - will let Liana know you're a little shaky, by careful. Liana uses cane or walker in the home for ambulation. CG reports [place]iana is unable to stand for very long and he tires easily due to lung and heart disease. She uses w/c to push [place] into bedroom after bathing due to fatigue. When going out, she pulls car up as close to [place] as possible. Walk 50 feet with two turns: Not applicable - Person does not usually do this activity Defined as: Once standing, the ability to walk at least 50 feet and make two turns. uses w/c for longer distances Walk 150 feet: Not applicable - Person does not usually do this activity Defined as: Once standing, the ability to walk at least 150 feet in a corridor or similar space. Walk 10 feet on uneven surfaces: Not applicable - Person does not usually do this activity Defined as: The ability to walk 10 feet on uneven or sloping surfaces (indoor or outdoor) such as turf or gravel. CG reports their condo is on flat land and does not usually do this. 1 step (curb): Supervision or touching assistance Defined as: The ability to go up and down a curb and/or up and down one step. There is one step up into their condo. They put a platform in front of the step which allows to use his walker to go up/down the step. If he has something to hold onto, he's fine 4 steps: Not applicable - Person does not usually do this activity Defined as: The ability to go up and down four steps with or without a rail. CG reports [place] has not done stairs in a long time. 12 steps: Not applicable - Person does not usually do this activity Defined as: The ability to go up and down 12 steps with or without a rail. Picking up object: Not applicable - Person does not usually do this activity Defined as: The ability to bend/stoop from a standing position to knot picker cloth a small object, such as a spoon, from the floor. CG reports [place] loses balance and starts to cough when bending over. He also does not have awareness if something was on the floor. He would just walk over it Walk indoors: Supervision or touching assistance Defined as: The ability to walk from room to room, around furniture and other obstacles. Carry something in both hands: Not applicable - Person does not usually do this activity Defined as: The ability to carry something in both hands while walking indoors (i.e., several dishes, light laundry basket, tray with food). uses cane or walker for ambulation - is unable to perform this activity safely Walk for 15 minutes: Not applicable - Person does not usually do this activity Defined as: The ability to walk without stopping or resting (i.e., through a department store, supermarket). Walk across a street: Not applicable - Person does not usually do this activity Defined as: The ability to cross a street before light turns red. Caregiver reports they don't go out much - and Liana is not in this situation. PART B: SUPERVISION, PROTECTION OR INSTRUCTION MEDICATION MANAGEMENT Does the person take any medication? Yes Does the person need assistance with medication management? Needs visual or verbal reminders CG sets up Liana's medications. She brings water and meds to Liana in am and pm, opens pill box and puts meds in his hand and watches him take SELF-PRESERVATION Does the person have the judgment and physical ability to cope, make appropriate decisions and take action in a changing environment or a potentially harmful situation? Independent CG reports [place] has awareness to get out of the home in event of emergency. She has a medical alert system for him. If she has to go out, she asks neighbor to keep an eye out for Liana is hard of hearing - has a land line which types words out for him which allows him to go back and review. CG reports this has been helpful d/t memory issues Is this person at risk of self-neglect? No Liana has the following risk factors: Not applicable Is this person at risk of neglect, abuse, or exploitation by another person? No What type of support does the person need in the home to remain safe, such as assistance with activities that require remembering, decision-making, or judgment? The person can be left alone for an hour or two. Liana has a diagnosis of dementia and CG reports Liana has mild short term memory issues and confusion. She provided example - he forgets how to operate remote control, has to think hard to remember granchildren's birthdays. She tries to schedule her own appts/run errands when RESIDENTIAL LIFE DIRECTOR is there. What type of support does the person need away from home to remain safe, such as assistance with activities that require remembering, decision-making, or judgment? Someone always needs to be with the person to help with remembering, decision making or judgment when away from home. does not go anywhere alone mainly due to physical impairments. He presented as quiet during this assessment, but when CG couldn't recall a name of his medication he was quickly able to provide it SAFETY Delusions/Hallucinations: Person engages in markedly inappropriate behavior that affects a person's daily functioning and social interactions. Behavior characterized by a radical change in personality and a distorted or diminished sense of reality. No CG reports [place] occasionally sees a bird or dog outside the window which isn't there. Or he might be looking at the wall and think he's talking to CG. She reports these instances are infrequent, happen more often when he's tired. Encouraged CG to d/w PCP at upcoming appt. Agitation: Person has a tendency, or would without an intervention, to suddenly or quickly become upset or violent. No Impulsivity: Person has a propensity, or would without an intervention, for sudden or spontaneous decisions or actions. No SELF-DIRECTION Can this person identify his/her own needs? Yes Can this person provide and/or arrange for his/her health and safety? Yes Summary: [place] functional assessment conducted via [facility] with [place] and Caregiver. [place] with history of COPD, pulmonary HTN, DM, HTN, carotid artery stenosis, dementia. He has had multiple recent hospitalizations: [facility] May 2023 followed by rehab stay; [facility] [place] and PNA May; [facility] August 2023 PNA. He is followed by [place] and community providers. With each hospitalization CG reports it has been harder for [place] to rebound, he has become weaker, more fatigued. He is currently receiving OT/PT/SN 2x/week. RESIDENTIAL LIFE DIRECTOR approved 36 hours, as [place] status has been improving, CG cut back to 15 hours. present for duration, but generally quiet. Caregiver was primary contributor to this assessment. total time for assessment 75 minutes /inge/ DEMARCUS BUI RN Signed: 11/05/2023 14:23 [facility]US BUI [facility]
--- OUTSIDE RECORDS SUMMARY | 2024-10-17 15:30 | XMS_ITS | Encounter Summary ---
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 Organization [place] Address [address] [place] [address] Care Team Providers Care Senior Cyber Intelligence Analyst Name Role Phone GURPREET PEREZ Primary [...] Harding's Name Patient's Relationship to Policy Harding [facility] (WNR) MEDICARE ADVANTAGE [facility] (WNR) Oct 25, 2011 [facility] [id number] PATIENT Selected Encounter This [...] The data comes from all [facility]. Appointment Date/Time Appointment Type Appointme nt Facility Name Oct 27, 2023 12:40 PM AMBULATORY - MEDICINE [place] [facility] Dec 08, 2023 08:00 AM AMBULATORY - MEDICINE [place] [facility] Feb 05, 2024 08:00 AM AMBULATORY - MEDICINE [place] [facility] February 25, 2024 02:00 PM AMBULATORY - REHAB MEDICIN E [place] [facility] [place] [facility] Mar 30, 2024 10:00 AM [facility]BULAT[facility] Active, Pending, and Scheduled Orders This section includes a listing of several types of active, pending, and scheduled orders, including clinic medications orders, diagnostic test orders, procedure orders and consult orders; where the start date of the order is 45 days before the date of the Encounter or 45 days after the date of theEncounter. The data comes from all [facility]. Test Date/Time Test Type Test Details Facility Name Oct 08, 2023 12:00 AM Laboratory - Chemi stry Order BASIC METABOLIC PANEL (fasting) BLOOD (SST-SERUM) [facility] Oct 08, 2023 12:00 AM Laboratory - Chemi stry Order LIPID PANEL FASTING BLOOD (SST-SERUM) [facility] Oct 08, 2023 12:00 AM Laboratory - Chemi stry Order LIVER FUNCTION BLOOD (SST-SERUM) [facility] Oct 08, 2023 12:00 AM Laboratory - Chemi stry Order CBC AND DIFF (AUTO) BLOOD (LAV-BLOOD) [facility] Oct 08, 2023 12:00 AM Laboratory - Chemi stry Order HEMOGLOBIN A1C PANEL BLOOD (LAV-BLOOD) [facility] Oct 08, 2023 12:00 AM Laboratory - Chemi stry Order TSH BLOOD (SST-SERUM) [facility] Social History: Smoking Status (Most current) and Tobacco Use (All prior to encounter date) This section includes the most current, and the historical, smoking and tobacco- related health factors from the [place] facility where the Encounter took place. Current Smoking Status This section includes the most current smoking, or tobacco-related health factor, from the [place] facility where the Encounter took place. Date/Time Current Smoking Status Comment Facil ity Jun 03, 2023 08:58 AM VA-TOBACCO FORMER USER [facility] Tobacco Use History This section includes a history of the smoking, or tobacco-related health factors, that were collected on or before the date of the Encounter. The data comes from the [place] facility where the Encounter took place. Date/Time Smoking Status/Tobacco Use Comment F acility Jun 03, 2023 08:58 AM [place]-TOBACCO QUIT 15 YRS OR MORE [facility] Advance Directives: All historical and [...] Jun 30, 2019 ADVANCE DIRECTIVE CASSIE POWELL [facility] Encounter Notes: All associated encounter notes This section contains the clinical notes associated to the Encounter. Date/Time Encounter Note(s) Provider Source Oct 19, 2023 12:00 AM NONVA CONSULT: LOCAL TITLE: COMMUNITY CARE-CONSULT RESULT NOTE STANDARD TITLE: NONVA CONSULT DATE OF NOTE: OCT 19, 2023 ENTRY DATE: NOV 11, 2023@15:45:33 AUTHOR: YUNIEL SANDERS EXP COSIGNER: URGENCY: STATUS: COMPLETED VistA Imaging - Scanned Document SCANNED DOCUMENT SIGNATURE NOT REQUIRED Electronically Filed: 11/11/2023 by: YUNIEL LUIS [facility]
--- OUTSIDE RECORDS SUMMARY | 2024-10-17 15:30 | XMS_ITS | Encounter Summary ---
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 [place] [facility] [place] [facility] [place] Address [address] [place] [address] Care Team Providers Care Remediation Bioanalytics Consultant Name Role Phone GURPREET PEREZ Primary [...] Harding's Name Patient's Relationship to Policy Harding [facility] PLAN [facility] (WNR) MEDICARE ADVANTAGE [facility] (WNR) Oct 25, 2011 [facility] [id number] FATEMEH GOMEZ PATIENT Selected Encounter This section includes the information on record at [place] for the Encounter. Date/Time Encounter Type Encounter Description Reason Pro vider Source Jul 28, 2024 12:00 AM Outpatient Encounter EVENT (HISTORICAL) [...] 20 appointments. The data comes from all [facility]. Appointment Date/Time Appointment Type Appointme nt Facility Name Aug 05, 2024 08:00 AM AMBULATORY [facility] Aug 22, 2024 09:30 AM AMBULATORY - MEDICINE [facility] Aug 29, 2024 08:00 AM AMBULATORY - [facility] Sep 20, 2024 09:00 AM AMBULATORY - MEDICINE [facility] Oct 03, 2024 11:30 AM AMBULATORY MEDICINE [facility] Active, Pending, and Scheduled Orders This section includes a listing of several types of active, pending, and scheduled orders, including clinic medications orders, diagnostic test orders, procedure orders and consult orders; where the start date of the order is 45 days before the date of the Encounter or 45 days after the date of theEncounter. The data comes from all [facility]. Test Date/Time Test Type Test Details Facility Name Aug 28, 2024 04:23 PM Consult Order [facility] NON-SKILLED HOME HEALTH AIDE Cons Environmental Services Assistant's Choice [facility] Lab Results: +/- 30 days of [...] Range Comment Aug 22, 2024 10:26 AM [place] FOLATE (OX) Specimen Type: SERUM No comment entered. Ordering Provider: COURTNEY FAROOQ Report Released Date/Time: Aug 22, 2024 10:17 AM Reporting Lab: [facility] [address] [facility] [address] Performing Lab: [facility] [address] [facility] [address] FOLATE (WROX) 3.90 ng/mL L >5.2 Aug 22, 2024 10:26 AM [place] RETICULOCYTES Specimen Type: BLOOD Comment: Smear reviewed, auto CBC w/Diff accepted. Ordering Provider: COURTNEY FAROOQ Report Released Date/Time: Aug 22, 2024 10:17 AM Reporting Lab: [address] [address] Performing Lab: [address] [address] RETIC % 2.6 H 0.6-2.0 RETIC, ABS 91.6 10*3/uL H 30.0-90.0 RET-HE % 29.6 27.9-42.0 Aug 22, 2024 10:26 AM [place] IRON & TIBC PANEL Specimen Type: SERUM No comment entered. Ordering Provider: COURTNEY FAROOQ Report Released Date/Time: Aug 22, 2024 10:17 AM Reporting Lab: [address] [address] Performing Lab: [address] [address] TIBC 210 ug/dL 204-475 IRON 43 ug/dL 40-160 Transferrin Saturation 20.5 20.0-50.0 Transferrin (TRF) 159 mg/dL L 200-360 Aug 22, 2024 10:26 AM [place] CBC AND DIFF (AUTO) Specimen Type: BLOOD Comment: Smear reviewed, auto CBC w/Diff accepted. Ordering Provider: COURTNEY FAROOQ Report Released Date/Time: Aug 22, 2024 10:17 AM Reporting Lab: [address] [address] Performing Lab: [address] [address] WBC 7.35 10*3/uL 4.50-11.00 RBC 3.51 10*6/uL [...] H 0.00-0.00 Aug 22, 2024 10:26 AM [place] FERRITIN Specimen Type: SERUM No comment entered. Ordering Provider: COURTNEY FAROOQ Report Released Date/Time: Aug 22, 2024 10:17 AM Reporting Lab: [address] [address] Performing Lab: [address] [address] FERRITIN 1130 ng/mL H 20-300 Aug 22, 2024 10:26 AM [place] VITAMIN B12 Specimen Type: SERUM No comment entered. Ordering Provider: COURTNEY FAROOQ Report Released Date/Time: Aug 22, 2024 10:17 AM Reporting Lab: [address] [address] Performing Lab: [address] [address] VITAMIN B12 378 pg/mL 200-900 Aug 22, 2024 10:26 AM [place] BASIC METABOLIC PANEL (non-fasting) Spe cimen Type: SERUM No comment entered. Ordering Provider: COURTNEY FAROOQ Report Released Date/Time: Aug 22, 2024 10:17 AM Reporting Lab: [address] [address] Performing Lab: [address] [place] [address] UREA NITROGEN 12 mg/dL 7-25 GLUCOSE 104 mg/dL H 65-100 SODIUM 136 mmol/L 135-145 POTASSIUM 4.7 mmol/L 3.5-5.0 CHLORIDE 106 mmol/L 100-110 CO2 18 meq/L L 20-30 CREATININE, Serum 1.15 mg/dL 0.50-1.40 eGFR(CKD-EPI 2020) 65 mL/min >60 Aug 22, 2024 10:26 AM [place] LIVER FUNCTION Specimen Type: SERUM No comment entered. Ordering Provider: COURTNEY FAROOQ Report Released Date/Time: Aug 22, 2024 10:17 AM Reporting Lab: [address] [address] Performing Lab: [address] [address] PROTEIN,TOTAL 6.0 g/dL 6.0-8.3 ALBUMIN 3.1 g/dL L 3.5-5.0 ALKALINE PHOSPHATASE 138 U/L 40-150 AST 27 U/L 5-34 ALT 36 U/L BILIRUBIN, TOTAL 1.0 mg/dL 0.2-1.2 Aug 16, 2024 01:58 PM [facility] URINALYSIS Specimen Type: URINE Comment: If Glucose = >500 and Ketones are positive, please alert the Physician. Ordering Provider: COURTNEY FAROOQ Report Released Date/Time: Aug 08, 2024 01:49 PM Reporting Lab: [address] [address] Performing Lab: [address] [address] UA COLOR Light-Yellow Yellow UA APPEARANCE Clear Clear UA GLUCOSE Normal mg/dL Negative UA KETONES NEGATIVE mg/dL Negative UA BLOOD NEGATIVE mg/dL Negative UA PROTEIN 10 mg/dL Negative UA NITRITE NEGATIVE mg/dL Negative UA BILIRUBIN NEGATIVE mg/dL Negative UA SPECIFIC GRAVITY 1.017 1.016-1.02 2 UA pH 6.0 5.0-9.0 UA UROBILINOGEN Normal mg/dL <2.0 UA LEUKOCYTE TRACE Negative Aug 16, 2024 01:58 PM [facility] MICROALBUMIN CREATININE RATIO PANEL Specimen Type: URINE No comment entered. Ordering Provider: COURTNEY FAROOQ Report Released Date/Time: Aug 08, 2024 01:49 PM Reporting Lab: [facility] [address] [facility] [address] Performing Lab: [address] [address] MICROALBUMIN/CR EATININE RATIO 7.3 mg/g 0-29.9 MICROALBUMIN,QU ANTITATIVE 0.8 mg/dL RR UNAVAIL CREATININE URINE 109.38 mg/dL Aug 16, 2024 01:58 PM [facility] MICROSCOPIC AUTOMATED, URINE Specimen Type: URINE Comment: If Glucose = >500 and Ketones are positive, please alert the Physician. Ordering Provider: COURTNEY FAROOQ Report Released Date/Time: Aug 08, 2024 01:49 PM Reporting Lab: [address] [address] Performing Lab: [facility] [address] [facility] [address] UA WBC 0-5 /[HPF] 0-5 UA BACTERIA 1+ /[HPF] NoneObs UA MUCUS FEW /[LPF] Trace UA HYALINE CASTS 2-4 /[LPF] 0-2 UA RBC 3-5 /[HPF] 0-3 Aug 15, 2024 10:14 AM [facility] BASIC METABOLIC PANEL (fasting) Specimen Type: SERUM No comment entered. Ordering Provider: COURTNEY FAROOQ Report Released Date/Time: Aug 08, 2024 01:49 PM Reporting Lab: [address] [address] Performing Lab: [address] [address] UREA NITROGEN 28 mg/dL H 7-25 GLUCOSE 98 mg/dL 65-100 SODIUM 133 mmol/L L 135-145 POTASSIUM 5.3 mmol/L H 3.5-5.0 CHLORIDE 106 mmol/L 100-110 CO2 15 meq/L L 20-30 CREATININE, Serum 1.31 mg/dL 0.50-1.40 eGFR(CKD-EPI 2020) 55 mL/min L >60 Aug 15, 2024 10:14 AM [facility] LIPID PANEL FASTING Specimen Type: SERUM No comment entered. Ordering Provider: COURTNEY FAROOQ Report Released Date/Time: Aug 08, 2024 01:49 PM Reporting Lab: [address] [address] Performing Lab: [address] [address] CHOLESTEROL 69 mg/dL TRIGLYCERIDE 88 mg/dL 0-150 LDL calculated 16 mg/dL 0-129 CHOL/HDL 2.0 HDL CHOLESTEROL 35 mg/dL L 40-60 Aug 15, 2024 10:14 AM [facility] LIVER FUNCTION Specimen Type: SERUM No comment entered. Ordering Provider: COURTNEY FAROOQ Report Released Date/Time: Aug 08, 2024 01:49 PM Reporting Lab: [address] [address] Performing Lab: [address] [address] PROTEIN,TOTAL 6.2 g/dL 6.0-8.3 ALBUMIN 3.2 g/dL L 3.5-5.0 ALKALINE PHOSPHATASE 103 U/L 40-150 AST 17 U/L 5-34 ALT 25 U/L BILIRUBIN, TOTAL 0.9 mg/dL 0.2-1.2 Aug 15, 2024 10:14 AM [facility] HEMOGLOBIN A1C PANEL Specimen Type: BLOOD [...] 08, 2024 01:49 PM Reporting Lab: [address] [address] Performing Lab: [facility] [address] [facility] [address] HEMOGLOBIN A1C 6.7 H 4.0-5.6 Aug 15, 2024 10:14 AM [facility] CBC AND DIFF (AUTO) Specimen Type: BLOOD No comment entered. Ordering Provider: COURTNEY FAROOQ Report Released Date/Time: Aug 08, 2024 01:49 PM Reporting Lab: [facility] [address] [facility] [address] Performing Lab: [facility] [address] [facility] [address] WBC 7.54 10*3/uL 4.50-11.00 RBC 3.63 10*6/uL [...] 10*3/uL 0.00-0.00 Aug 15, 2024 10:14 AM [facility] TSH Specimen Type: SERUM No comment entered. Ordering Provider: COURTNEY FAROOQ Report Released Date/Time: Aug 08, 2024 01:49 PM Reporting Lab: [facility] [address] [facility] [address] Performing Lab: [facility] [address] [facility] [address] TSH 1.84 u[IU]/mL 0.35-5.00 Aug 15, 2024 10:14 AM [facility] URIC ACID Specimen Type: SERUM No comment entered. Ordering Provider: COURTNEY FAROOQ Report Released Date/Time: Aug 08, 2024 01:49 PM Reporting Lab: [facility] [address] [facility] [address] Performing Lab: [address] [address] URIC ACID 7.9 mg/dL H 3.5-7.2 Aug 15, 2024 10:14 AM [facility] CALCIUM Specimen Type: SERUM No comment entered. Ordering Provider: COURTNEY FAROOQ Report Released Date/Time: Aug 08, 2024 01:49 PM Reporting Lab: [facility] [address] [facility] [address] Performing Lab: [address] [address] CALCIUM 8.5 mg/dL 8.5-10.2 Aug 15, 2024 10:14 AM [facility] VITAMIN D (25-OH) Specimen Type: SERUM No comment entered. Ordering Provider: COURTNEY FAROOQ Report Released Date/Time: Aug 08, 2024 01:49 PM Reporting Lab: [facility] [address] [facility] [address] Performing Lab: [address] [address] VITAMIN D (25-OH) <13 ng/mL L 20-50 [...] 03, 2023 08:58 AM [place]-TOBAC[place] FORMER USER [facility] Tobacco Use History This section includes a history of the smoking, or tobacco-related health factors, that were collected on or before the date of the Encounter. The data comes from the [place] facility where the Encounter took place. Date/Time Smoking Status/Tobacco Use Comment F acility Jun 03, 2023 08:58 AM [place]-TO[place]AC[place] QUIT 15 YRS OR MORE [facility] Advance Directives: All historical and current [...] Jun 30, 2019 ADVANCE DIRECTIVE CASSIE POWELL [facility] Encounter Notes: All associated encounter notes This section contains the clinical notes associated to the Encounter. Date/Time Encounter Note(s) Provider Source Jul 28, 2024 12:00 AM NONVA NOTE: LOCAL TITLE: NON-VA HOSPITALIZATIONS/ER STANDARD TITLE: NONVA NOTE DATE OF NOTE: JUL 28, 2024 ENTRY DATE: AUG 22, 2024@13:12:42 AUTHOR: DAFNE CROSS COSIGNER: URGENCY: STATUS: COMPLETED VistA Imaging - Scanned Document SCANNED DOCUMENT SIGNATURE NOT REQUIRED Electronically Filed: 08/22/2024 by: LOGAN CROSS Antenna Machine Operator LOGAN CROSS [facility]
--- OUTSIDE RECORDS SUMMARY | 2024-10-17 15:30 | XMS_ITS ---
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 [place] [facility] [place] Organization [place] Address [address] [place] [address] Care Team Providers Care Terry Cloth Cutter Hand Name Role Phone GURPREET PEREZ Primary Care [...] Patient's Relationship to Policy Harding [facility] PL[facility] (WNR) MEDICARE ADVANTAGE [facility] (WNR) Oct 25, 2011 [facility] [id number] FATEM[address] GOMEZ PATIENT Selected Encounter This section includes the information on record at [place] for the Encounter. Date/Time Encounter Type Encounter Description Reason Pro vider Source Nov 02, 2023 08:30 AM Outpatient Encounter PRIMARY CARE/MEDICINE IHE Encounter [...] 20 appointments. The data comes from all [facility]. Appointment Date/Time Appointment Type Appointme nt Facility Name Dec 08, 2023 08:00 AM [facility] Feb 05, 2024 08:00 AM AMBULATORY - MEDICINE [facility] NTRL TRN [facility] February 25, 2024 02:00 PM [facility] Mar 30, 2024 10:00 AM AMBULATORY - REHAB MEDICIN E [facility] Active, Pending, and Scheduled [...] Order BASIC METABOLIC PANEL (fasting) BLOOD (SST-SERUM) [facility] Oct 08, 2023 12:00 AM Laboratory - Chemi stry Order LIPID PANEL FASTING BLOOD (SST-SERUM) [facility] Oct 08, 2023 12:00 AM Laboratory - Chemi stry Order LIVER FUNCTION BLOOD (SST-SERUM) [facility] Oct 08, 2023 12:00 AM Laboratory - Chemi stry Order HEMOGLOBIN A1C PANEL BLOOD (LAV-BLOOD) [facility] Oct 08, 2023 12:00 AM Laboratory - Chemi stry Order CBC AND DIFF (AUTO) BLOOD (LAV-BLOOD) [facility] Oct 08, 2023 12:00 AM Laboratory - Chemi stry Order TSH BLOOD (SST-SERUM) [facility] Social History: Smoking Status [...] 03, 2023 08:58 AM [place]-TOBACCO FORMER USER [facility] Tobacco Use History This section includes a history of the smoking, or tobacco-related health factors, that were collected on or before the date of the Encounter. The data comes from the [place] facility where the Encounter took place. Date/Time Smoking Status/Tobacco Use Comment Gracy acbrice Jun 03, 2023 08:58 AM [place]-TOBACCO QUIT 15 YRS OR MORE [facility] Advance Directives: All historical and current [...] Jun 30, 2019 ADVANCE DIRECTIVE CASSIE POWELL [facility] Encounter Notes: All associated encounter notes This section contains the clinical notes associated to the Encounter. Date/Time Encounter Note(s) Provider Source Nov 02, 2023 08:30 AM PRIMARY CARE WinAd E MESSAGING: LOCAL TITLE: PRIMARY CARE SECURE MESSAGING STANDARD TITLE: PRIMARY CARE SECURE MESSAGING DATE OF NOTE: NOV 02, 2023@08:30 ENTRY DATE: NOV 02, 2023@08:30:44 AUTHOR: ROGER PEDRAZA EXP COSIGNER: URGENCY: STATUS: COMPLETED PRIMARY CARE SECURE MESSAGING Has ADDENDA ------Original Message ----- Sent: 11/02/2023 08:12 AM ET From: FATEMEH GOMEZ To: [facility] Subject: General:Blood Pressure Cuff I was told to request a Blood Pressure cuff because the one I own isn't working correctly. Is this possible? /inge/ ROGER MORRIS Signed: 11/02/2023 08:30 Receipt Acknowledged By: 11/02/2023 09:13 /es/ SANTY KIRBY RN REGISTERED NURSE 11/02/2023 10:34 /es/ MAXIMILIANO KUMARI LPN LPN 11/02/2023 ADDENDUM STATUS: COMPLETED Consult placed and held for provider signature. /inge/ SANTY KIRBY RN REGISTERED NURSE Signed: 11/02/2023 09:14 11/02/2023 ADDENDUM STATUS: COMPLETED Consult placed /inge/ MAXIMILIANO KUMARI LPN LPN Signed: 11/02/2023 10:41 ROGER PEDRAZA CNTRL [facility]
--- OUTSIDE RECORDS SUMMARY | 2024-10-17 15:30 | XMS_ITS | Encounter Summary ---
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 [place] [facility] [place] [facility] [place] Address [address] [place] [address] Care Team Providers Care Cnc Mechanic Name Role Phone GURPREET PEREZ Primary Care [...] Patient's Relationship to Policy Harding [facility] PLAN [facility] (WNR) MEDICARE ADVANTAGE [facility] (WNR) Oct 25, 2011 [facility] [id number] FAT[address] GOMEZ PATIENT Selected Encounter This section includes the information on record at [place] for the Encounter. Date/Time Encounter Type Encounter Description Reason Pro vider Source Jul 17, 2024 12:00 PM Outpatient Encounter [facility]ARE [...] 20 appointments. The [facility] comes [facility]. Appointment Date/Time Appointment Type Appointme nt Facility Name Aug 05, 2024 08:00 AM AMBULATORY - MEDICINE [facility] Aug 22, 2024 09:30 AM AMBULATORY - MEDICINE [facility] Aug 29, 2024 08:00 AM [facility] Sep 20, 2024 09:00 AM AMBULATORY - MEDICINE [facility] Oct 03, 2024 11:30 AM AMBULATORY - MEDICINE [facility] Active, Pending, and Scheduled Orders This section includes a listing of several types of active, pending, and scheduled orders, including clinic medications orders, diagnostic test orders, procedure orders and consult orders; where the start date of the order is 45 days before the date of the Encounter or 45 days after the date of theEncounter. The [facility] comes from [facility] Test Date/Time Test Type Test Details Facility Name Aug 28, 2024 04:[address] [facility] [place] [facility] Cons Security Intern's Choice [facility] Lab Results: +/- 30 days of the encounter This section includes the Chemistry and Hematology Lab Results on record with [place] for the patient. Radiology Reports and Pathology Reports are provided separately, in subsequent sections. Lab Results This section contains the Chemistry/Hematology Results that were resulted 30 days before or 30 daysafter the date of the Encounter. Date/Time Source Result Type Result - Unit Interpretation Reference Range Comment Aug 16, 2024 01:58 PM [facility] URINALYSIS Specimen Type: URINE Comment: If Glucose = >500 and Ketones are positive, please alert the Physician. Ordering Provider: COURTNEY FAROOQ Report Released Date/Time: Aug 08, 2024 01:49 PM Reporting Lab: [address] [address] Performing Lab: [address] [address] UA COLOR Light-Yellow Yellow UA APPEARANCE Clear Clear UA GLUCOSE Normal mg/dL Negative UA KETONES NEGATIVE mg/dL Negative UA BLOOD NEGATIVE mg/dL Negative UA PROTEIN 10 mg/dL Negative UA NITRITE NEGATIVE mg/dL Negative UA BILIRUBIN NEGATIVE mg/dL Negative UA SPECIFIC GRAVITY 1.017 1.016-1.02 2 UA pH 6.0 5.0-9.0 UA UROBILINOGEN Normal mg/dL <2.0 UA LEUKOCYTE TRACE Negative Aug 16, 2024 01:58 PM [facility] MICROALBUMIN CREATININE RATIO PANEL Specimen Type: URINE No comment entered. Ordering Provider: COURTNEY FAROOQ Report Released Date/Time: Aug 08, 2024 01:49 PM Reporting Lab: [address] [address] Performing Lab: [address] [address] MICROALBUMIN/C REATININE RATIO 7.3 mg/g 0-29.9 MICROALBUMIN,Q UANTITATIVE 0.8 mg/dL RR UNAVAIL CREATININE URINE 109.38 mg/dL Aug 16, 2024 01:58 PM [facility] MICROSCOPIC AUTOMATED, URINE Specimen Type: URINE Comment: If Glucose = >500 and Ketones are positive, please alert the Physician. Ordering Provider: COURTNEY FAROOQ Report Released Date/Time: Aug 08, 2024 01:49 PM Reporting Lab: [address] [address] Performing Lab: [address] [address] UA WBC 0-5 /[HPF] 0-5 UA BACTERIA 1+ /[HPF] NoneObs UA MUCUS FEW /[LPF] Trace UA HYALINE CASTS 2-4 /[LPF] 0-2 UA RBC 3-5 /[HPF] 0-3 Aug 15, 2024 10:14 AM [facility] BASIC METABOLIC PANEL (fasting) Specimen Type: SERUM No comment entered. Ordering Provider: COURTNEY FAROOQ Report Released Date/Time: Aug 08, 2024 01:49 PM Reporting Lab: [address] [address] Performing Lab: [address] [address] UREA NITROGEN 28 mg/dL H 7-25 GLUCOSE 98 mg/dL 65-100 SODIUM 133 mmol/L L 135-145 POTASSIUM 5.3 mmol/L H 3.5-5.0 CHLORIDE 106 mmol/L 100-110 CO2 15 meq/L L 20-30 CREATININE, Serum 1.31 mg/dL 0.50-1.40 eGFR(CKD-EPI 2020) 55 mL/min L >60 Aug 15, 2024 10:14 AM [facility] LIPID PANEL FASTING Specimen Type: SERUM No comment entered. Ordering Provider: COURTNEY FAROOQ Report Released Date/Time: Aug 08, 2024 01:49 PM Reporting Lab: [address] [address] Performing Lab: [address] [address] CHOLESTEROL 69 mg/dL TRIGLYCERIDE 88 mg/dL 0-150 LDL calculated 16 mg/dL 0-129 CHOL/HDL 2.0 HDL CHOLESTEROL 35 mg/dL L 40-60 Aug 15, 2024 10:14 AM [facility] LIVER FUNCTION Specimen Type: SERUM No comment entered. Ordering Provider: COURTNEY FAROOQ Report Released Date/Time: Aug 08, 2024 01:49 PM Reporting Lab: [address] [address] Performing Lab: [address] [address] PROTEIN,TOTAL 6.2 g/dL 6.0-8.3 ALBUMIN 3.2 g/dL L 3.5-5.0 ALKALINE PHOSPHATASE 103 U/L 40-150 AST 17 U/L 5-34 ALT 25 U/L BILIRUBIN, TOTAL 0.9 mg/dL 0.2-1.2 Aug 15, 2024 10:14 AM [facility] HEMOGLOBIN A1C PANEL Specimen Type: BLOOD Comment: Values obtained from A1C measurements can vary. For atypical A1C assays, a reported value of 7.0 could actually be between 6.72 and 7.28 if measured by a reference method. A reported value of 9.0 could actually be between 8.73 and 9.27. Ref: http://www.ngs p.org/CAPdata. asp Ordering Provider: COURTNEY FAROOQ Report Released Date/Time: Aug 08, 2024 01:49 PM Reporting Lab: [facility] [address] [facility] [address] Performing Lab: [address] [address] HEMOGLOBIN A1C 6.7 H 4.0-5.6 Aug 15, 2024 10:14 AM [facility] TSH Specimen Type: SERUM No comment entered. Ordering Provider: COURTNEY FAROOQ Report Released Date/Time: Aug 08, 2024 01:49 PM Reporting Lab: [address] [address] Performing Lab: [address] [address] TSH 1.84 u[IU]/mL 0.35-5.00 Aug 15, 2024 10:14 AM [facility] CBC AND DIFF (AUTO) Specimen Type: BLOOD No comment entered. Ordering Provider: COURTNEY FAROOQ Report Released Date/Time: Aug 08, 2024 01:49 PM Reporting Lab: [facility] [address] [facility] [address] Performing Lab: [address] [address] WBC 7.54 10*3/uL 4.50-11.00 RBC 3.63 10*6/uL [...] 10*3/uL 0.00-0.00 Aug 15, 2024 10:14 AM [facility] CALCIUM Specimen Type: SERUM No comment entered. Ordering Provider: COURTNEY FAROOQ Report Released Date/Time: Aug 08, 2024 01:49 PM Reporting [facility] [address] Performing [facility]: [facility] [address] CALCIUM 8.5 mg/dL 8.5-10.2 Aug 15, 2024 10:14 AM [facility] URIC ACID Specimen Type: SERUM No comment entered. Ordering Provider: COURTNEY FAROOQ Report Released Date/Time: Aug 08, 2024 01:49 PM Reporting Lab: [facility] [address] [address] Performing Lab: [facility] [address] [address] URIC ACID 7.9 mg/dL H 3.5-7.2 Aug 15, 2024 10:14 AM [facility] VITAMIN D (25-OH) Specimen Type: SERUM No comment entered. Ordering Provider: COURTNEY FAROOQ Report Released Date/Time: Aug 08, 2024 01:49 PM Reporting [facility]: [facility] [address] Performing Lab: [facility] [address] [facility] [address] VITAMIN D (25-OH) <13 ng/mL L 20-50 Social History: Smoking Status (Most current) and Tobacco Use (All prior to encounter date) This section includes the most current, and the historical, smoking and tobacco- related health factors from the [place] facility where the Encounter took place. Current Smoking Status This section includes the most current smoking, or tobacco-related health factor, from the [place] facility where the Encounter took place. Date/Time Current Smoking Status Comment Facil ity Jun 03, 2023 08:58 AM [place]-TO[place]ACCO FORMER USER [facility] Tobacco Use History This section includes a history of the smoking, or tobacco-related health factors, that were collected on or before the date of the Encounter. The data comes from the [place] facility where the Encounter took place. Date/Time Smoking Status/Tobacco Use Comment F acility Jun 03, 2023 08:58 AM VA-TOBACCO QUIT 15 YRS OR MORE [facility] Advance Directives: All historical and current Section Date Range: From patient's date of to the date document was created. This section includes ALL of a patient's completed or amended [place] Advance and Rescinded Directives. The entries below indicate that a directive exists for the patient, but an actual copy is not included with this document. The data comes from all [place] facilities. Date Advance Directives Provider Source Jul 15, 2023 ADVANCE DIRECTIVE ROGER PEDRAZA Jun 30, 2019 ADVANCE DIRECTIVE CASSIE POWELL [facility] Encounter Notes: All associated encounter notes This section contains the clinical notes associated to the Encounter. Date/Time Encounter Note(s) Provider Source Jul 17, 2024 12:00 PM NONVA CONSULT: LOCAL TITLE: COMMUNITY CARE-CONSULT RESULT NOTE STANDARD TITLE: NONVA CONSULT DATE OF NOTE: JUL 17, 2024@12:00 ENTRY DATE: AUG 22, 2024@11:26:24 AUTHOR: TRE OLIVEIRA EXP COSIGNER: URGENCY: STATUS: COMPLETED VistA Imaging - Scanned Document SCANNED DOCUMENT SIGNATURE NOT REQUIRED Electronically Filed: 08/22/2024 by: TRE MORGANRGlen [facility]ILITYRohini [facility]
--- OUTSIDE RECORDS SUMMARY | 2024-10-17 15:30 | XMS_ITS | Encounter Summary ---
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 [place] [facility] [facility] [place] Address [address] [place] [address] Care Team Providers Care Field Hauler Name Role Phone GURPREET PEREZ Primary Care [...] Name Patient's Relationship to Policy Harding [facility] (WNR) MEDICARE ADVANTAGE [facility] (WNR) Oct 25, 2011 [facility] [id number] FATEMEH GOMEZ PATIENT Selected Encounter This section includes the information on record at CT for the Encounter. Date/Time Encounter Type Encounter Description Reason Provider Source Nov 01, 2023 01:30 PM PROGRAM INTAKE ASSESSMENT HOME TREATMENT SERVICES ICD-10-CM Z74.1 Need for assistance with personal care BILL BYERS Luisito Encounter Template Text not used by CT Assessments - Encounter Diagnoses This section includes the primary and secondary diagnoses documented for the Encounter. Date/Time Primary/Secondary Diagnosis Diagnosis Name Provider Source Nov 01, 2023 04:16 PM PRIMARY Need for assistance with personal care BILL BYERS [facility] Plan of Treatment: Future Appointments (+ 6 months) and Future Tests (+/- 45 days) The Plan of Treatment section includes future care activities for the patient from [facility] This section includes future appointments and future orders which are active, pending or scheduled. Future Appointments This section includes appointments that were scheduled to occur 6 months from the date of the Encounter, up to a maximum of 20 appointments. The data comes from all [facility]. Appointment Date/Time Appointment Type Appointme nt Facility Name Dec 08, 2023 08:00 AM [facility] Feb 05, 2024 08:00 AM [facility] February 25, 2024 02:00 PM [facility] Mar 30, 2024 10:00 AM AMBULATORY - REHAB MEDICIN E [facility] Active, Pending, and Scheduled Orders This section includes a listing of several types of active, pending, and scheduled orders, including clinic medications orders, diagnostic test orders, procedure orders and consult orders; where the start date of the order is 45 days before the date of the Encounter or 45 days after the date of theEncounter. The data comes from all [facility]. Test Date/Time Test Type Test Details Facility Name Oct 08, 2023 12:00 AM Laboratory - Chemi stry Order BASIC METABOLIC PANEL (fasting) BLOOD (SST-SERUM) [facility] Oct 08, 2023 12:00 AM Laboratory - Chemi stry Order LIPID PANEL FASTING BLOOD (SST-SERUM) [facility] Oct 08, 2023 12:00 AM Laboratory - Chemi stry Order LIVER FUNCTION BLOOD (SST-SERUM) [facility] Oct 08, 2023 12:00 AM Laboratory - Chemi stry Order CBC AND DIFF (AUTO) BLOOD (LAV-BLOOD) [facility] Oct 08, 2023 12:00 AM Laboratory - Chemi stry Order HEMOGLOBIN A1C PANEL BLOOD (LAV-BLOOD) [facility] Oct 08, 2023 12:00 AM Laboratory - Chemi stry Order TSH BLOOD (SST-SERUM) [facility] Social History: Smoking Status (Most current) and Tobacco Use (All prior to encounter date) This section includes the most current, and the historical, smoking and tobacco- related health factors from the [place] facility where the Encounter took place. Current Smoking Status This section includes the most current smoking, or tobacco-related health factor, from the [place] facility where the Encounter took place. Date/Time Current Smoking Status Comment Deana ity Jun 03, 2023 08:[address]-TOBACCO FORMER USER [facility] Tobacco Use History This section includes a history of the smoking, or tobacco-related health factors, that were collected on or before the date of the Encounter. The data comes from the CT facility where the Encounter took place. Date/Time Smoking Status/Tobacco Use Comment F acility Jun 03, 2023 08:[address]-TOBACCO QUIT 15 YRS OR MORE [facility] Advance Directives: All historical and current Section Date Range: From patient's date of to the date document was created. This section includes ALL of a patient's completed or amended CT Advance and Rescinded Directives. The entries below indicate that a directive exists for the patient, but an actual copy is not included with this document. The data comes from all CT facilities. Date Advance Directives Provider Source Jul 15, 2023 ADVANCE DIRECTIVE ROGER PEDRAZA Jun 30, 2019 ADVANCE DIRECTIVE CASSIE POWELL [facility] Encounter Notes: All associated encounter notes This section contains the clinical notes associated to the Encounter. Date/Time Encounter Note(s) Provider Source Nov 01, 2023 01:36 PM CAREGIVER CERTIFICATE: LOCAL TITLE: [facility] PCAFC ASSESSMENT STANDARD TITLE: CAREGIVER CERTIFICATE DATE OF NOTE: NOV 01, 2023@13:36 ENTRY DATE: NOV 01, 2023@13:37:01 AUTHOR: BILL BYERS COSIGNER: URGENCY: STATUS: COMPLETED Program of Comprehensive Assistance for Family Caregivers Assessment The Program of Comprehensive Assistance for Family Caregivers (PCAFC) provides services and additional benefits to designated and approved Family Caregivers of eligible Veterans who incurred or aggravated a serious injury in the line of duty and is for individuals in need of personal care services for a minimum of six continuous months based on any one of the following: (i) An inability to perform an activity of daily living; or (ii) A need for supervision, protection, or instruction. In addition to other eligibility requirements, the PCAFC must also be found to be in the best interest of the individual in order to participate in the program. Date of assessment: 11/01/2023 Time spent in session: 120 minutes Identified the using full name and the following other mckinnon identifier(s): Full name: FATEMEH GOMEZ Full SSN: [id number] Date of : Aug Method of Contact: Video Telehealth confirms location is safe and private for visit. Name of historian conducting visit: Maria C Gomez (spouse) Ames Contact Details: Best contact number for backup/emergency communication: Ames Location/Surroundings During Visit: location during visit: [place] [address] Visit conducted by clinical video telehealth. verbal consent obtained. Location/emergency number confirmed. Reviewed limits of confidentiality with the and caregiver/applicant(s). Brief description of why the and caregiver/applicant(s) are applying to or participating in the program: and spouse are applying for the PCAFC program, as she finds that she is currently caring for the Vteeran 17/05. She notes that she, in conjunction with OT/PT, have been able to increase the Ames's mobility from bed ridden to being able to walk with a walker. CURRENT LIVING SITUATION The following live in the 's household: Name: Maria C Gomez Age: 70 Relationship: Spouse Special needs: none The does not provide care for anyone in the household. The Ames does not participate in care of the home or property. The does not drive independently. When did last drive: over 1 year ago. Additional information: lacks the strength to safely operate a vehicle, his functional goal is to be able to return to doing so. EMPLOYMENT HISTORY The Ames is not currently employed. When was last employed? 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 EDUCATION HISTORY The does not have any barriers to education. The Ames is not attending school. The Ames is or wishes to pursue enrollment: No SOCIAL HISTORY What does the 's typical day look like? wakes up between 6:00-7:00, gets up with assistance from the , goes into the bathroom, then goes into the LR and settles into his chair. CG changes his undergarments, then gives him his teeth, hearing aids and medication, he might then shower with assistance, then returns to his chair for breakfast. He will watch TV, trys to exercise in the chair, walks with assistance. CG will prepare lunch and dinner. may like to go out for a ride, or go out for an appointment when needed. When he is ready for bed, he changes with assistance, gets into bed with assistance (have mechanical bed with rails). wakes up 2-3 times each night to urinate, and the CG assists with urinal or getting to the bathroom as indicated. What does the do for leisure/relaxation? Going for car rides, watches TV. They both enjoy football, notably Steelers and Bills fans. The enjoys visiting with friends and neighbors when the opportunity presents itself. CURRENT PROVIDERS The is currently receiving [place] Primary Care or [facility] in the [facility] Primary [facility]. Provider's name: GURPREET PEREZ The is not currently participating in other [place] programs/services. The Ames is not currently receiving CT Mental Health or Substance Use treatment. The Ames is not currently receiving care outside of [place]. MEDICAL HISTORY Significant past medical history/treatment: Had kidney and colon surgery in 1994, cataract surgery around 2018. Pulmonary and coronary arterial disease, type 2 diabetes, and rashes consistent with agent orange exposure. The Ames has had stents placed on 3 different occasions. has also been diagnosed with COPD and emphysema as well. Liana has had 3 falls since 05/2023, which had resulted in a rehab stay to regain strength and functioning. had a severe reaction to one antibiotic while in rehab, and took additional contact with [facility] to sort out. One day after returning home from rehab, both the Ames and CG contracted COVID, and the subsequently ended up at [facility] x2 with pneumonia. Any unaddressed medical concerns: None currently The does not have chronic pain. The Ames has a typical exercise/activity routine. Details: CG encourages movement and exercise at home, limited mobility with cane or walker, chair exercises, etc... Daily as tolerated. The reports concerns regarding memory and/or cognition. How does this impact 's daily activities? Has minimal short term memory encoding and minimal confusion, but generally good cognition. Noted that he had recent testing that revealed possible delirium related to medical issues, but ruled out dementia. The Ames has had formal testing related to memory/cognition. Details: was seen by neuro jostin specialist at [facility], Fatemeh TATE. MENTAL HEALTH/SUBSTANCE USE HISTORY Significant mental health/substance use history/treatment: none PHQ-2 A PHQ-2 screen was performed. The score was 0 which is a negative screen for depression. Over the past two weeks, how often have you been bothered by the following problems? 1. Little interest or pleasure in doing things Not at all 2. Feeling down, depressed, or hopeless Not at all [place] Suicide Severity Rating Scale (C-SSRS) screener 1. Over the past month, have you wished you were or wished you could go to sleep and not wake up? No 2. Over the past month, have you had any actual thoughts of killing yourself? No 3. Over the past month, have you been thinking about how you might do this? Response not required due to responses to other questions. 4. Over the past month, have you had these thoughts and had some intention of acting on them? Response not required due to responses to other questions. 5. Over the past month, have you started to work out or worked out the details of how to kill yourself? Response not required due to responses to other questions. 6. If yes, at any time in the past month did you intend to carry out this plan? Response not required due to responses to other questions. 7. In your lifetime, have you ever done anything, started to do anything, or prepared to do anything to end your life (for example, collected pills, obtained a gun, gave away valuables, went to the roof but didn't jump)? No 8. If YES, was this within the past 3 months? Response not required due to responses to other questions. The reports that there are no current or past concerns regarding IPV domestic violence or safety. The reports currently feeling safe in their home. Current alcohol use: Not at all Current substance use: Not At All Current tobacco use: Not at all Ames has access to opioids: No Other addictive behaviors (i.e. gambling, sex, alayna, etc.): Not at all The Ames is not currently receiving [facility] Alcohol/Substance Abuse treatment. The is not interested in a referral for VA Alcohol/Substance Abuse treatment at this time. Ames has access to firearms: No The was offered information on the 's Crisis Line, including contact number: Dial 291 then Press 1 for Veterans and/or Text Service [id number] LEGAL/FINANCIAL HISTORY The Ames does not report any current legal concerns. The does not report any current personal financial concerns. CURRENT GOALS 's stated overall functional goals: Ames hopes to get strong enough to drive again. How does the report that the caregiver supports the 's overall goals? Yes, absolutely. She does everything for me, helps me get through my day. SUPPORT SERVICES The Ames is currently receiving home care services. Agency name, hours, and services provided: Currently eligible for 21-33 hours, using only 15 or less, and hopes to cut down again. [facility], through [place]. OT, PT, RN and REHABILITATION CONSULTANT hours. Support services currently used:* Homemaker/Home Health Aide Number of hours per week: 15 Enrolled: less than 6 months ago Personal Care Services provided (please be specific): REHABILITATION CONSULTANT comes in to assist with bathing, or to supervise the Ames if the CG has an appointment or errands. Home Improvements and Structural Alterations (Complete) Comment: Have a medical bed, had grab bars and safety rails installed in bathroom/. Discussion about [facility] Personal Care Services and [facility] enrollment/participation: Caregiver Support Program staff discussed with and/or caregiver/applicant(s) possible impacts to [place] Personal Care Services due to enrollment in [facility]. == CAREGIVER INPUT SECTION == Caregiver's understanding of the Program of Comprehensive Assistance for caregiver/applicant(s) and why they decided to apply: CG is currently enrolled in [facility], understands the difference in the PCA. Decided to apply to ensure that all available resources for the Ames are explored. Caregiver's description of Ames's self-care: The Ames is able to participate minimally in dressing- primarily his upper body, but needs full assist for his lower body. He needs help getting on/off toilet, also in/out of shower. Needs assistance to clean self, as he is still regaining strength and energy following his recent illnesses. He is able to feed himself but all meals are prepared and served to him. His meds are provided to him, and the CG tracks and dispenses them. Caregiver's description of how the has responded to their self-care challenges and what is/is not working: CG reports that the is very grateful to have her help, and tries to do what he is able to. He is occasionally frustrated by his diminished independence, especially being unable to drive, cook, clean. Type of assistance that the caregiver provides to address 's needs in completing activities of daily living: The CG provides hands-on assistance for bathing, dressing, toileting and assistance with mobility as needed. She prepares meals and serves them, tracks his medications, and manages all IADL and housekeeping tasks. Type of assistance caregiver provides due to neurological, cognitive or mental health needs: CG assists the Ames in tracking his daily schedule, manages his appointments and in-home care, and also manages their finances. Ames has experienced some minimal cognitive diminishment, but is generally alert and Ox3 with better long-term memory and recall. Caregiver's description of how pathologist assistant and meal planning are performed, who performs the duties, and any established routines: Prior to the recent medical issues in May, the managed most of the pathologist assistant and cooking while the CG was still working. Now, he is unable to manage any of those things, and all pathologist assistant are managed by the CG currently. Ames needs assistance with the pathologist assistant and/or family activities that he/she completes. Details: Ames needs mobility assistance if he leaves the home for appointments or to enjoy a car ride. The Ames does not drive independently. The caregiver attends the 's medical and/or mental health appointments with him/her. Details: CG is active in all aspects of the Ames's care. Caregiver's knowledge and understanding of the treatment recommendations for the : CG is well versed in the Ames's care and treatment plans, and very active in his VA and non-VA care. The caregiver reports concerns for the Ames's safety. Caregiver's description of strategies used to address problems has in maintaining safety as well as the type of assistance the caregiver provides: Concerned about the Ames's mobility and the risk of him falling. Type of preparations the caregiver needs to complete for the Ames in their absence: At this time, the [facility] states that she does not leave the unless he has scheduled REHABILITATION CONSULTANT with him during that time. She also just obtained a life-alert style system from the VA, and has recently placed cameras in the home to be able to see the Ames's movements if she should need to in the future. The Caregiver does not assist the with any additional concerns and/or additional care needs. SUMMARY OF VISIT: Ames and CG had recently been accepted to the [facility], and also decided to apply for the [facility], so the same clinician has completed the assessments. Ames and CG were interviewed via [facility], and were able to provide detailed answers to all of the items. They demonstrated a warmth and shared sense of humor throughout the interview, with the CG prompting the for some answers, noting his diminished hearing. The couple detailed the Ames's recent change in health status, which have included critical cardiac issues and struggles with COVID related illnesses that have all required hospitalization and rehab stays. The was most recently determined to be bed-ridden while inpatient, but since returning home and with CG providing daily assistance and encouragement has been able to stand and walk short distances, and to remain active and engaged as is able. CG noted often that she was focused cutting back on as much supportive in-home care as was prudent, noting that she preferred t provide as much care to the Ames as she was able to. She also noted that he was benefitting greatly from in-home OT/PT services, and making measured, consistent gains. [facility] staff will coordinate the following: /inge/ BILL BYERS LCSW Clinical Corporate Officer Signed: 11/01/2023 16:[address] [facility]
--- OUTSIDE RECORDS SUMMARY | 2024-10-17 15:31 | XMS_ITS ---
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 Organization [place] Address [address] [place] [address] Care Team Providers Care Sand Operator Name Role Phone GURPREET PEREZ Primary [...] Harding's Name Patient's Relationship to Policy Harding [facility] PLAN [facility] (WNR) MEDICARE ADVANTAGE [facility] (WNR) Oct 25, 2011 [facility] [id number] PATIENT Selected Encounter This section includes the information on record at [place] for the Encounter. Date/Time Encounter Type Encounter Description Reason Pro vider Source Aug 20, 2024 12:00 PM Outpatient Encounter COMMUNITY [...] 22, 2024 09:30 AM AMBULATORY - MEDICINE [facility] Aug 29, 2024 08:00 AM [facility] Sep 20, 2024 09:00 AM AM[facility]ULATORY - MEDICINE [facility] Oct 03, 2024 11:30 AM [facility] Active, Pending, and Scheduled Orders This section includes a listing of several types of active, pending, and scheduled orders, including clinic medications orders, diagnostic test orders, procedure orders and consult orders; where the start date of the order is 45 days before the date of the Encounter or 45 days after the date of theEncounter. The data comes from all [facility]. Test Date/Time Test Type Test Details Facility Name Aug 28, 2024 04:23 PM Consult Order [facility] NON-SKILLED HOME HEALTH AIDE Cons Apartment Community Manager's Choice [facility] Sep 20, 2024 10:06 AM Consult Order NUTRITION ASSESSMENT/EDUCATION/SPO PC OUTPT Cons Apartment Community Manager's [facility] Lab Results: +/- 30 days of the encounter This section includes the Chemistry and Hematology Lab Results on record with [place] for the patient. Radiology Reports and Pathology Reports are provided separately, in subsequent sections. Lab Results This section contains the Chemistry/Hematology Results that were resulted 30 days before or 30 daysafter the date of the Encounter. Date/Time Source Result Type Result - Unit Interpretation Reference Range Comment Aug 22, 2024 10:26 AM [place] FOLATE (OX) Specimen Type: SERUM No comment entered. Ordering Provider: COURTNEY FAROOQ Report Released Date/Time: Aug 22, 2024 10:17 AM Reporting Lab: [facility] [address] [facility] [address] Performing Lab: [facility] [address] [facility] [facility] [address] FOLATE (WROX) 3.90 ng/mL L >5.2 Aug 22, 2024 10:26 AM [place] RETICULOCYTES Specimen Type: BLOOD Comment: Smear reviewed, auto CBC w/Diff accepted. Ordering Provider: COURTNEY FAROOQ Report Released Date/Time: Aug 22, 2024 10:17 AM Reporting Lab: [address] [address] Performing Lab: [address] [address] RETIC % 2.6 H 0.6-2.0 RETIC, ABS 91.6 10*3/uL H 30.0-90.0 RET-HE % 29.6 27.9-42.0 Aug 22, 2024 10:26 AM [place] IRON & TIBC PANEL Specimen Type: SERUM No comment entered. Ordering Provider: COURTNEY FAROOQ Report Released Date/Time: Aug 22, 2024 10:17 AM Reporting Lab: [address] [address] Performing Lab: [address] [address] TIBC 210 ug/dL 204-475 IRON 43 ug/dL 40-160 Transferrin Saturation 20.5 20.0-50.0 Transferrin (TRF) 159 mg/dL L 200-360 Aug 22, 2024 10:26 AM [place] CBC AND DIFF (AUTO) Specimen Type: BLOOD Comment: Smear reviewed, auto CBC w/Diff accepted. Ordering Provider: COURTNEY FAROOQ Report Released Date/Time: Aug 22, 2024 10:17 AM Reporting Lab: [address] [address] Performing Lab: [address] [address] WBC 7.35 10*3/uL 4.50-11.00 RBC 3.51 10*6/uL [...] H 0.00-0.00 Aug 22, 2024 10:26 AM [place] FERRITIN Specimen Type: SERUM No comment entered. Ordering Provider: COURTNEY FAROOQ Report Released Date/Time: Aug 22, 2024 10:17 AM Reporting Lab: [address] [address] Performing Lab: [address] [address] FERRITIN 1130 ng/mL H 20-300 Aug 22, 2024 10:26 AM [place] VITAMIN B12 Specimen Type: SERUM No comment entered. Ordering Provider: COURTNEY FAROOQ Report Released Date/Time: Aug 22, 2024 10:17 AM Reporting Lab: [address] [address] Performing Lab: [address] [address] VITAMIN B12 378 pg/mL 200-900 Aug 22, 2024 10:26 AM [place] BASIC METABOLIC PANEL (non-fasting) Spe cimen Type: SERUM No comment entered. Ordering Provider: COURTNEY FAROOQ Report Released Date/Time: Aug 22, 2024 10:17 AM Reporting Lab: [address] [address] Performing Lab: [facility] [address] [address] [place]A NITROGEN 12 mg/dL 7-25 GLUCOSE 104 mg/dL H 65-100 SODIUM 136 mmol/L 135-145 POTASSIUM 4.7 mmol/L 3.5-5.0 CHLORIDE 106 mmol/L 100-110 CO2 18 meq/L L 20-30 CREATININE, Serum 1.15 mg/dL 0.50-1.40 eGFR(CKD-EPI 2020) 65 mL/min >60 Aug 22, 2024 10:26 AM [place] LIVER FUNCTION Specimen Type: SERUM No comment entered. Ordering Provider: COURTNEY FAROOQ Report Released Date/Time: Aug 22, 2024 10:17 AM Reporting Lab: [address] [address] Performing Lab: [address] [address] PROTEIN,TOTAL 6.0 g/dL 6.0-8.3 ALBUMIN 3.1 g/dL L 3.5-5.0 ALKALINE PHOSPHATASE 138 U/L 40-150 AST 27 U/L 5-34 ALT 36 U/L BILIRUBIN, TOTAL 1.0 mg/dL 0.2-1.2 Aug 16, 2024 01:58 PM [facility] URINALYSIS Specimen Type: URINE Comment: If Glucose = >500 and Ketones are positive, please alert the Physician. Ordering Provider: COURTNEY FAROOQ Report Released Date/Time: Aug 08, 2024 01:49 PM Reporting Lab: [address] [address] Performing Lab: [address] [address] UA COLOR Light-Yellow Yellow UA APPEARANCE Clear Clear UA GLUCOSE Normal mg/dL Negative UA KETONES NEGATIVE mg/dL Negative UA BLOOD NEGATIVE mg/dL Negative UA PROTEIN 10 mg/dL Negative UA NITRITE NEGATIVE mg/dL Negative UA BILIRUBIN NEGATIVE mg/dL Negative UA SPECIFIC GRAVITY 1.017 1.016-1.02 2 UA pH 6.0 5.0-9.0 UA UROBILINOGEN Normal mg/dL <2.0 UA LEUKOCYTE TRACE Negative Aug 16, 2024 01:58 PM [facility] MICROALBUMIN CREATININE RATIO PANEL Specimen Type: URINE No comment entered. Ordering Provider: COURTNEY FAROOQ Report Released Date/Time: Aug 08, 2024 01:49 PM Reporting Lab: [address] [address] Performing Lab: [address] [address] MICROALBUMIN/CR EATININE RATIO 7.3 mg/g 0-29.9 MICROALBUMIN,QU ANTITATIVE 0.8 mg/dL RR UNAVAIL CREATININE URINE 109.38 mg/dL Aug 16, 2024 01:58 PM [facility] MICROSCOPIC AUTOMATED, URINE Specimen Type: URINE Comment: If Glucose = >500 and Ketones are positive, please alert the Physician. Ordering Provider: COURTNEY FAROOQ Report Released Date/Time: Aug 08, 2024 01:49 PM Reporting Lab: [address] [address] Performing Lab: [address] [address] UA WBC 0-5 /[HPF] 0-5 UA BACTERIA 1+ /[HPF] NoneObs UA MUCUS FEW /[LPF] Trace UA HYALINE CASTS 2-4 /[LPF] 0-2 UA RBC 3-5 /[HPF] 0-3 Aug 15, 2024 10:14 AM [facility] BASIC METABOLIC PANEL (fasting) Specimen Type: SERUM No comment entered. Ordering Provider: COURTNEY FAROOQ Report Released Date/Time: Aug 08, 2024 01:49 PM Reporting Lab: [address] [address] Performing Lab: [address] [address] UREA NITROGEN 28 mg/dL H 7-25 GLUCOSE 98 mg/dL 65-100 SODIUM 133 mmol/L L 135-145 POTASSIUM 5.3 mmol/L H 3.5-5.0 CHLORIDE 106 mmol/L 100-110 CO2 15 meq/L L 20-30 CREATININE, Serum 1.31 mg/dL 0.50-1.40 eGFR(CKD-EPI 2020) 55 mL/min L >60 Aug 15, 2024 10:14 AM [facility] LIPID PANEL FASTING Specimen Type: SERUM No comment entered. Ordering Provider: COURTNEY FAROOQ Report Released Date/Time: Aug 08, 2024 01:49 PM Reporting Lab: [address] [address] Performing Lab: [address] [address] CHOLESTEROL 69 mg/dL TRIGLYCERIDE 88 mg/dL 0-150 LDL calculated 16 mg/dL 0-129 CHOL/HDL 2.0 HDL CHOLESTEROL 35 mg/dL L 40-60 Aug 15, 2024 10:14 AM [facility] LIVER FUNCTION Specimen Type: SERUM No comment entered. Ordering Provider: COURTNEY FAROOQ Report Released Date/Time: Aug 08, 2024 01:49 PM Reporting Lab: [address] [address] Performing Lab: [address] [address] PROTEIN,TOTAL 6.2 g/dL 6.0-8.3 ALBUMIN 3.2 g/dL L 3.5-5.0 ALKALINE PHOSPHATASE 103 U/L 40-150 AST 17 U/L 5-34 ALT 25 U/L BILIRUBIN, TOTAL 0.9 mg/dL 0.2-1.2 Aug 15, 2024 10:14 AM [facility] HEMOGLOBIN A1C PANEL Specimen Type: BLOOD Comment: [...] Aug 08, 2024 01:49 PM Reporting Lab: [address] [address] Performing Lab: [facility] [address] [facility] [address] HEMOGLOBIN A1C 6.7 H 4.0-5.6 Aug 15, 2024 10:14 AM [facility] TSH Specimen Type: SERUM No comment entered. Ordering Provider: COURTNEY FAROOQ Report Released Date/Time: Aug 08, 2024 01:49 PM Reporting Lab: [facility] [address] [facility] [address] Performing Lab: [facility] [address] [facility] [address] TSH 1.84 u[IU]/mL 0.35-5.00 Aug 15, 2024 10:14 AM [facility] CBC AND DIFF (AUTO) Specimen Type: BLOOD No comment entered. Ordering Provider: COURTNEY FAROOQ Report Released Date/Time: Aug 08, 2024 01:49 PM Reporting Lab: [facility] [address] [facility] [address] Performing Lab: [facility] [address] [facility] [address] WBC 7.54 10*3/uL 4.50-11.00 RBC 3.63 10*6/uL [...] 10*3/uL 0.00-0.00 Aug 15, 2024 10:14 AM [facility] CALCIUM Specimen Type: SERUM No comment entered. Ordering Provider: COURTNEY FAROOQ Report Released Date/Time: Aug 08, 2024 01:49 PM Reporting Lab: [address] [address] Performing Lab: [address] [address] CALCIUM 8.5 mg/dL 8.5-10.2 Aug 15, 2024 10:14 AM [facility] URIC ACID Specimen Type: SERUM No comment entered. Ordering Provider: COURTNEY FAROOQ Report Released Date/Time: Aug 08, 2024 01:49 PM Reporting Lab: [facility] [address] [facility] [address] Performing Lab: [address] [address] URIC ACID 7.9 mg/dL H 3.5-7.2 Aug 15, 2024 10:14 AM [facility] VITAMIN D (25-OH) Specimen Type: SERUM No comment entered. Ordering Provider: COURTNEY FAROOQ Report Released Date/Time: Aug 08, 2024 01:49 PM Reporting Lab: [address] [address] Performing Lab: [address] [address] VITAMIN D (25-OH) <13 ng/mL L 20-50 [...] AM [place]-TOBACCO QUIT 15 YRS OR MORE [facility] [...] Encounter. Date/Time Encounter Note(s) Provider Source Aug 20, 2024 12:00 PM NONVA CONSULT: LOCAL TITLE: COMMUNITY CARE-CONSULT RESULT NOTE STANDARD TITLE: NONVA CONSULT DATE OF NOTE: AUG 20, 2024@12:00 ENTRY DATE: SEP 15, 2024@14:21:38 AUTHOR: LIBAN TRIMBLE EXP COSIGNER: URGENCY: STATUS: COMPLETED VistA Imaging - Scanned Document SCANNED DOCUMENT SIGNATURE NOT REQUIRED Electronically Filed: 09/15/2024 by: LIBAN TRIMBLE MEDICAL MEDICAL STAFF PHYSICIAN LIBAN TRIMBLE [facility]
--- OUTSIDE RECORDS SUMMARY | 2024-10-17 15:31 | XMS_ITS | Encounter Summary ---
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 Organization [place] Address [address] [place] [address] Care Team Providers Care Elementary Esl Teacher Name Role Phone GURPREET PEREZ Primary [...] Name Patient's Relationship to Policy Harding [facility] PLAN [facility] (WNR) MEDICARE ADVANTAGE [facility] (WNR) Oct 25, 2011 [facility] [id number] PATIENT Selected Encounter This section includes the information on record at [place] for the Encounter. Date/Time Encounter Type Encounter Description Reason Pro vider Source Aug 27, 2024 12:00 PM Outpatient Encounter COMM[facility]ITY CARE [...] 29, 2024 08:00 AM [facility] Sep 20, 2024 09:00 AM [facility] Oct 03, 2024 11:30 AM [facility] Active, Pending, and Scheduled Orders This section includes a listing of several types of active, pending, and scheduled orders, including clinic medications orders, diagnostic test orders, procedure orders and consult orders; where the start date of the order is 45 days before the date of the Encounter or 45 days after the date of theEncounter. The data comes from all [place] treatment facilities. Test Date/Time Test Type Test Details Facility Name Aug 28, 2024 04:23 PM Consult Order [facility] NON-SKILLED HOME HEALTH AIDE Cons Land Lease Information [facility] Sep 20, 2024 10:06 AM Consult Order NUTRITION ASSESSMENT/EDUCATION/SPO PC OUTPT Cons Land Lease Information Clerk's Choice [facility] Lab Results: +/- 30 days of the encounter This section includes the Chemistry and Hematology Lab Results on record with [place] for the patient. Radiology Reports and Pathology Reports are provided separately, in subsequent sections. Lab Results This section contains the Chemistry/Hematology Results that were resulted 30 days before or 30 daysafter the date of the Encounter. Date/Time Source Result Type Result - Unit Interpretation Reference Range Comment Aug 22, 2024 10:26 AM [facility] FOLATE (WROX) Specimen Type: SERUM No comment entered. Ordering Provider: COURTNEY FAROOQ Report Released Date/Time: Aug 22, 2024 10:17 AM Reporting Lab: [facility] [address] [facility] [address] Performing Lab: [facility] [address] [facility] [address] FOLATE (WROX) 3.90 ng/mL L >5.2 Aug 22, 2024 10:26 AM [facility] CBC AND DIFF (AUTO) Specimen Type: BLOOD Comment: Smear reviewed, auto CBC w/Diff accepted. Ordering Provider: COURTNEY FAROOQ Report Released Date/Time: Aug 22, 2024 10:17 AM Reporting Lab: [facility] [address] [facility] [address] Performing Lab: [address] [address] WBC 7.35 10*3/uL 4.50-11.00 RBC 3.51 10*6/uL [...] H 0.00-0.00 Aug 22, 2024 10:26 AM [facility] RETICULOCYTES Specimen Type: BLOOD Comment: Smear reviewed, auto CBC w/Diff accepted. Ordering Provider: COURTNEY FAROOQ Report Released Date/Time: Aug 22, 2024 10:17 AM Reporting Lab: [address] [address] Performing Lab: [address] [address] RETIC % 2.6 H 0.6-2.0 RETIC, ABS 91.6 10*3/uL H 30.0-90.0 RET-HE % 29.6 27.9-42.0 Aug 22, 2024 10:26 AM [facility] FERRITIN Specimen Type: SERUM No comment entered. Ordering Provider: COURTNEY FAROOQ Report Released Date/Time: Aug 22, 2024 10:17 AM Reporting [facility]: [facility] [address] [facility] [address] Performing Lab: [facility] [address] FERRITIN 1130 ng/mL H 20-300 Aug 22, 2024 10:26 AM [facility] VITAMIN B12 Specimen Type: SERUM No comment entered. Ordering Provider: COURTNEY FAROOQ Report Released Date/Time: Aug 22, 2024 10:17 AM Reporting [facility]: [facility] [address] [address] Performing [facility]: [facility] [address] [address] VITAMIN B12 378 pg/mL 200-900 Aug 22, 2024 10:26 AM [facility] IRON & TIBC PANEL Specimen Type: SERUM No comment entered. Ordering Provider: COURTNEY FAROOQ Report Released Date/Time: Aug 22, 2024 10:17 AM Reporting [facility]: [facility] [address] [address] Performing [facility]: [facility] [address] [address] TIBC 210 ug/dL 204-475 IRON 43 ug/dL 40-160 Transferrin Saturation 20.5 20.0-50.0 Transferrin (TRF) 159 mg/dL L 200-360 Aug 22, 2024 10:26 AM [facility] BASIC METABOLIC PANEL (non-fasting) Spe cimen Type: SERUM No comment entered. Ordering Provider: COURTNEY FAROOQ Report Released Date/Time: Aug 22, 2024 10:17 AM Reporting Lab: [facility] [address] Per[facility]: [facility] [address] UREA NITROGEN 12 mg/dL 7-25 GLUCOSE 104 mg/dL H 65-100 SODIUM 136 mmol/L 135-145 POTASSIUM 4.7 mmol/L 3.5-5.0 CHLORIDE 106 mmol/L 100-110 CO2 18 meq/L L 20-30 CREATININE, Serum 1.15 mg/dL 0.50-1.40 eGFR(CKD-EPI 2020) 65 mL/min >60 Aug 22, 2024 10:26 AM [facility] LIVER FUNCTION Specimen Type: SERUM No comment entered. Ordering Provider: COURTNEY FAROOQ Report Released Date/Time: Aug 22, 2024 10:17 AM Reporting Lab: [address] [address] Performing Lab: [address] [address] PROTEIN,TOTAL 6.0 g/dL 6.0-8.3 ALBUMIN 3.1 g/dL L 3.5-5.0 ALKALINE PHOSPHATASE 138 U/L 40-150 AST 27 U/L 5-34 ALT 36 U/L BILIRUBIN, TOTAL 1.0 mg/dL 0.2-1.2 Aug 16, 2024 01:58 PM [facility] MICROALBUMIN CREATININE RATIO PANEL Specimen Type: URINE No comment entered. Ordering Provider: COURTNEY FAROOQ Report Released Date/Time: Aug 08, 2024 01:49 PM Reporting Lab: [address] [address] Performing Lab: [address] [address] MICROALBUMIN/CR EATININE RATIO 7.3 mg/g 0-29.9 MICROALBUMIN,QU ANTITATIVE 0.8 mg/dL RR UNAVAIL CREATININE URINE 109.38 mg/dL Aug 16, 2024 01:58 PM [facility] URINALYSIS Specimen Type: URINE Comment: If Glucose = >500 and Ketones are positive, please alert the Physician. Ordering Provider: COURTNEY FAROOQ Report Released Date/Time: Aug 08, 2024 01:49 PM Reporting Lab: [address] [address] Performing Lab: [facility] [address] [facility] [address] UA COLOR Light-Yellow Yellow UA APPEARANCE Clear Clear UA GLUCOSE Normal mg/dL Negative UA KETONES NEGATIVE mg/dL Negative UA BLOOD NEGATIVE mg/dL Negative UA PROTEIN 10 mg/dL Negative UA NITRITE NEGATIVE mg/dL Negative UA BILIRUBIN NEGATIVE mg/dL Negative UA SPECIFIC GRAVITY 1.017 1.016-1.02 2 UA pH 6.0 5.0-9.0 UA UROBILINOGEN Normal mg/dL <2.0 UA LEUKOCYTE TRACE Negative Aug 16, 2024 01:58 PM [facility] MICROSCOPIC AUTOMATED, URINE Specimen Type: URINE Comment: If Glucose = >500 and Ketones are positive, please alert the Physician. Ordering Provider: COURTNEY FAROOQ Report Released Date/Time: Aug 08, 2024 01:49 PM Reporting Lab: [facility] [address] [facility] [address] Performing Lab: [facility] [address] [facility] [address] UA WBC 0-5 /[HPF] 0-5 UA BACTERIA 1+ /[HPF] NoneObs UA MUCUS FEW /[LPF] Trace UA HYALINE CASTS 2-4 /[LPF] 0-2 UA RBC 3-5 /[HPF] 0-3 Aug 15, 2024 10:14 AM [facility] BASIC METABOLIC PANEL (fasting) Specimen Type: SERUM No comment entered. Ordering Provider: COURTNEY FAROOQ Report Released Date/Time: Aug 08, 2024 01:49 PM Reporting Lab: [facility] [address] [facility] [address] Performing Lab: [address] [address] UREA NITROGEN 28 mg/dL H 7-25 GLUCOSE 98 mg/dL 65-100 SODIUM 133 mmol/L L 135-145 POTASSIUM 5.3 mmol/L H 3.5-5.0 CHLORIDE 106 mmol/L 100-110 CO2 15 meq/L L 20-30 CREATININE, Serum 1.31 mg/dL 0.50-1.40 eGFR(CKD-EPI 2020) 55 mL/min L >60 Aug 15, 2024 10:14 AM [facility] LIPID PANEL FASTING Specimen Type: SERUM No comment entered. Ordering Provider: COURTNEY FAROOQ Report Released Date/Time: Aug 08, 2024 01:49 PM Reporting Lab: [facility] [address] [facility] [address] Performing Lab: [address] [address] CHOLESTEROL 69 mg/dL TRIGLYCERIDE 88 mg/dL 0-150 LDL calculated 16 mg/dL 0-129 CHOL/HDL 2.0 HDL CHOLESTEROL 35 mg/dL L 40-60 Aug 15, 2024 10:14 AM [facility] LIVER FUNCTION Specimen Type: SERUM No comment entered. Ordering Provider: COURTNEY FAROOQ Report Released Date/Time: Aug 08, 2024 01:49 PM Reporting Lab: [address] [address] Performing Lab: [facility] [address] [facility] [address] PROTEIN,TOTAL 6.2 g/dL 6.0-8.3 ALBUMIN 3.2 g/dL L 3.5-5.0 ALKALINE PHOSPHATASE 103 U/L 40-150 AST 17 U/L 5-34 ALT 25 U/L BILIRUBIN, TOTAL 0.9 mg/dL 0.2-1.2 Aug 15, 2024 10:14 AM [facility] HEMOGLOBIN A1C PANEL Specimen Type: BLOOD [...] Aug 08, 2024 01:49 PM Reporting Lab: [address] [address] Performing Lab: [address] [address] HEMOGLOBIN A1C 6.7 H 4.0-5.6 Aug 15, 2024 10:14 AM [facility] TSH Specimen Type: SERUM No comment entered. Ordering Provider: COURTNEY FAROOQ Report Released Date/Time: Aug 08, 2024 01:49 PM Reporting Lab: [facility] [address] [facility] [address] Performing Lab: [address] [address] TSH 1.84 u[IU]/mL 0.35-5.00 Aug 15, 2024 10:14 AM [facility] CAL[facility] Specimen Type: SERUM No comment entered. Ordering Provider: COURTNEY FAROOQ Report Released Date/Time: Aug 08, 2024 01:49 PM Reporting Lab: [address] [address] Performing Lab: [address] [address] CALCIUM 8.5 mg/dL 8.5-10.2 Aug 15, 2024 10:14 AM [facility] CBC AND DIFF (AUTO) Specimen Type: BLOOD No comment entered. Ordering Provider: COURTNEY FAROOQ Report Released Date/Time: Aug 08, 2024 01:49 PM Reporting Lab: [address] [address] Performing Lab: [address] [address] WBC 7.54 10*3/uL 4.50-11.00 RBC 3.63 10*6/uL [...] 10*3/uL 0.00-0.00 Aug 15, 2024 10:14 AM [facility] URIC ACID Specimen Type: SERUM No comment entered. Ordering Provider: COURTNEY FAROOQ Report Released Date/Time: Aug 08, 2024 01:49 PM Reporting Lab: [facility] [address] [facility] [address] Performing Lab: [facility] [address] [facility] [address] URIC ACID 7.9 mg/dL H 3.5-7.2 Aug 15, 2024 10:14 AM [facility] VITAMIN D (25-OH) Specimen Type: SERUM No comment entered. Ordering Provider: COURTNEY FAROOQ Report Released Date/Time: Aug 08, 2024 01:49 PM Reporting Lab: [facility] [address] [facility] [address] Performing Lab: [address] [address] VITAMIN D (25-OH) <13 ng/mL L 20-50 [...] 03, 2023 08:58 AM [place]-TOBACCO FORMER USER [facility] Tobacco Use History This section includes a history of the smoking, or tobacco-related health factors, that were collected on or before the date of the Encounter. The data comes from the [place] facility where the Encounter took place. Date/Time Smoking Status/Tobacco Use Comment F acility Jun 03, 2023 08:58 AM [place]-TOBACCO QUIT 15 YRS OR MORE [facility] Advance Directives: All historical and current [...] Jun 30, 2019 ADVANCE DIRECTIVE CASSIE POWELL [facility] Encounter Notes: All associated encounter notes This section contains the clinical notes associated to the Encounter. Date/Time Encounter Note(s) Provider Source Aug 27, 2024 12:00 PM NONVA CONSULT: LOCAL TITLE: COMMUNITY CARE-CONSULT RESULT NOTE STANDARD TITLE: NONVA CONSULT DATE OF NOTE: AUG 27, 2024@12:00 ENTRY DATE: SEP 28, 2024@13:40:18 AUTHOR: LIBAN TRIMBLE EXP COSIGNER: URGENCY: STATUS: COMPLETED VistA Imaging - Scanned Document SCANNED DOCUMENT SIGNATURE NOT REQUIRED Electronically Filed: 09/28/2024 by: LIBAN TRIMBLE MEDICAL BPM DEVELOPER LIBAN TRIMBLE [facility]
--- OUTSIDE RECORDS SUMMARY | 2024-10-17 15:31 | XMS_ITS ---
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 Date/Time Encounter Type Encounter Description Reason Pro vider Source Oct 02, 2024 08:19 AM Outpatient Encounter PRIMARY CARE/MEDICINE IHE Encounter Template Text not used by [place] Plan of Treatment: Future Appointments (+ 6 [...] 03, 2024 11:30 AM AMBULATORY - MEDICINE [facility] Active, Pending, and Scheduled Orders This section includes a listing of several types of active, pending, and scheduled orders, including clinic medications orders, diagnostic test orders, procedure orders and consult orders; where the start date of the order is 45 days before the date of the Encounter or 45 days after the date of theEncounter. The data comes from all [place] treatment facilities. Test Date/Time Test Type Test Details Facility Name Aug 28, 2024 04:23 PM Consult Order COMMUNITY CARE-GEC NON-SKILLED HOME HEALTH AIDE Cons Career Services Director's Choice [facility] Sep 20, 2024 10:06 AM Consult Order NUTRITION ASSESSMENT/EDUCATION/SPO PC OUTPT Cons Career Services Director's [facility] Social History: Smoking Status (Most current) and Tobacco Use (All prior to encounter date) This section includes the most current, and the historical, smoking and tobacco- related health factors from the [place] facility where the Encounter took place. Current Smoking Status This section includes the most current smoking, or tobacco-related health factor, from the [place] facility where the Encounter took place. Date/Time Current Smoking Status Comment Facil ity Jun 03, 2023 08:58 AM VA-TOBACCO FORMER USER [facility] Tobacco Use History This section includes a history of the smoking, or tobacco-related health factors, that were collected on or before the date of the Encounter. The data comes from the [place] facility where the Encounter took place. Date/Time Smoking Status/Tobacco Use Comment F acility Jun 03, 2023 08:58 AM NE-TOBACCO QUIT 15 YRS OR MORE [facility] Advance Directives: All historical and current Section [...] ROGER PEDRAZA Jun 30, 2019 ADVANCE DIRECTIVE DEOCASSIE KEENE [facility] Encounter Notes: All associated encounter notes This section contains the clinical notes associated to the Encounter. Date/Time Encounter Note(s) Provider Source Oct 04, 2024 08:36 AM ADDENDUM: LOCAL TITLE: Addendum STANDARD TITLE: ADDENDUM DATE OF NOTE: OCT 04, 2024@08:36:34 ENTRY DATE: OCT 04, 2024@08:36:36 AUTHOR: MAXIMILIANO KUMARI COSIGNER: URGENCY: STATUS: COMPLETED Attaching AMSA to schedule annual visit. /inge/ MAXIMILIANO KUMARI LPN LPN Signed: 10/04/2024 08:36 Receipt Acknowledged By: 10/05/2024 09:32 /inge/ JUAN MORRIS ========= --- Original Document --- 10/02/24 PRIMARY CARE SECURE MESSAGING: ------Original Message -------- Sent: 09/30/2024 09:19 AM ET From: FATEMEH GOMEZ To: CHRIS,O_P [facility] Subject: Appointment:Looking for Alas appointment for next year. During the video appointment you mentioned making an appointment for him for his annual for 2024 in Aug or Sep. Please let me know. They can also call me at [phone]. Maria C Martinezdrewmariann () /inge/ JUAN MORRIS Signed: 10/02/2024 08:19 Receipt Acknowledged By: 10/04/2024 08:37 /mini KUMARI LPN LPN * AWAITING SIGNATURE * [facility] ROWE [facility] Oct 02, 2024 08:19 AM PRIMARY CARE SECUR E MESSAGING: LOCAL TITLE: PRIMARY CARE SECURE MESSAGING STANDARD TITLE: PRIMARY CARE SECURE MESSAGING DATE OF NOTE: OCT 02, 2024@08:19 ENTRY DATE: OCT 02, 2024@08:19:07 AUTHOR: JUAN JESUS COSIGNER: URGENCY: STATUS: COMPLETED PRIMARY CARE SECURE MESSAGING Has ADDENDA ------Original Message -------- Sent: 09/30/2024 09:19 AM ET From: FATEMEH GOMEZ To: CHRIS,O[facility]P [facility] Subject: Appointment:Looking for Bishop appointment for next year. During the video appointment you mentioned making an appointment for him for his annual for 2024 in Aug or Sep. Please let me know. They can also call me at [phone]. Maria C Gomez () /inge/ JUAN MORRIS Signed: 10/02/2024 08:19 Receipt Acknowledged By: 10/04/2024 08:37 /inge/ MAXIMILIANO KUMARI LPN LPN 10/07/2024 21:29 /es/ JANINA ROWE RN REGISTERED NURSE 10/04/2024 ADDENDUM STATUS: COMPLETED Attaching ARTURO to schedule annual visit. /inge/ MAXIMILIANO KUMARI LPN LPN Signed: 10/04/2024 08:36 Receipt Acknowledged By: 10/05/2024 09:32 /inge/ JUAN BARTON [facility]
--- OUTSIDE RECORDS SUMMARY | 2024-10-17 15:31 | XMS_ITS ---
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 [place] Organization Department of [place] Address [address] [place] [address] Care Team Providers Care Dye Operator Name Role Phone GURPREET PEREZ Primary [...] Relationship to Policy Harding [facility] PLAN [facility] (WNR) MEDICARE ADVANTAGE [facility] (WNR) Oct 25, 2011 [facility] [id number] FATEMEH GOMEZ PATIENT Selected Encounter This section includes the information on record at [place] for the Encounter. Date/Time Encounter Type Encounter Description Reason Pro vider Source Aug 28, 2024 11:22 AM Outpatient Encounter TELEPHONE/GERIATRICS IHE Encounter Template [...] 29, 2024 08:00 AM [facility] Sep 20, 2024 09:00 AM [facility] Oct 03, 2024 11:30 AM [facility]UL[facility] - MEDIC[facility] Active, Pending, and Scheduled Orders This section includes a listing of several types of active, pending, and scheduled orders, including clinic medications orders, diagnostic test orders, procedure orders and consult orders; where the start date of the order is 45 days before the date of the Encounter or 45 days after the date of theEncounter. The data comes from all [place] treatment facilities. Test Date/Time Test Type Test Details Facility Name Aug 28, 2024 04:23 PM Consult Order COMMUNITY CARE-[facility]EC NON-SKILLED HOME HEALTH AIDE Cons Head Teacher's Choice [facility] Sep 20, 2024 10:06 AM Consult Order NUTRITION ASSESSMENT/EDUCATION/SPO PC OUTPT Cons Head Teacher's Choice [facility] Lab Results: +/- 30 days of the encounter This section includes the Chemistry and Hematology Lab Results on record with [place] for the patient. Radiology Reports and Pathology Reports are provided separately, in subsequent sections. Lab Results This section contains the Chemistry/Hematology Results that were resulted 30 days before or 30 daysafter the date of the Encounter. Date/Time Source Result Type Result - Unit Interpretation Reference Range Comment Aug 22, 2024 10:26 AM [facility] FOLATE (OX) Specimen Type: SERUM No comment entered. Ordering Provider: COURTNEY FAROOQ Report Released Date/Time: Aug 22, 2024 10:17 AM Reporting Lab: [facility] [address] [address] Performing Lab: [facility] [address] [address] FOLATE (WROX) 3.90 ng/mL L >5.2 Aug 22, 2024 10:26 AM [facility] RETICULOCYTES Specimen Type: BLOOD Comment: Smear reviewed, auto CBC w/Diff accepted. Ordering Provider: COURTNEY FAROOQ Report Released Date/Time: Aug 22, 2024 10:17 AM Reporting Lab: [address] [address] Performing Lab: [address] [address] RETIC % 2.6 H 0.6-2.0 RETIC, ABS 91.6 10*3/uL H 30.0-90.0 RET-HE % 29.6 27.9-42.0 Aug 22, 2024 10:26 AM [facility] IRON & TIBC PANEL Specimen Type: SERUM No comment entered. Ordering Provider: COURTNEY FAROOQ Report Released Date/Time: Aug 22, 2024 10:17 AM Reporting Lab: [address] [address] Performing Lab: [address] [address] TIBC 210 ug/dL 204-475 IRON 43 ug/dL 40-160 Transferrin Saturation 20.5 20.0-50.0 Transferrin (TRF) 159 mg/dL L 200-360 Aug 22, 2024 10:26 AM [facility] CBC AND DIFF (AUTO) Specimen Type: BLOOD Comment: Smear reviewed, auto CBC w/Diff accepted. Ordering Provider: COURTNEY FAROOQ Report Released Date/Time: Aug 22, 2024 10:17 AM Reporting Lab: [address] [address] Performing Lab: [address] [address] WBC 7.35 10*3/uL 4.50-11.00 RBC 3.51 10*6/uL [...] H 0.00-0.00 Aug 22, 2024 10:26 AM [facility] FERRITIN Specimen Type: SERUM No comment entered. Ordering Provider: COURTNEY FAROOQ Report Released Date/Time: Aug 22, 2024 10:17 AM Reporting Lab: [facility] [address] [address] Performing Lab: [address] [address] FERRITIN 1130 ng/mL H 20-300 Aug 22, 2024 10:26 AM [facility] VITAMIN B12 Specimen Type: SERUM No comment entered. Ordering Provider: COURTNEY FAROOQ Report Released Date/Time: Aug 22, 2024 10:17 AM Reporting Lab: [facility] [address] [address] Performing Lab: [facility] [address] [address] VITAMIN B12 378 pg/mL 200-900 Aug 22, 2024 10:26 AM [facility] BASIC METABOLIC PANEL (non-fasting) Spe cimen Type: SERUM No comment entered. Ordering Provider: COURTNEY FAROOQ Report Released Date/Time: Aug 22, 2024 10:17 AM Reporting Lab: [facility] [address] [address] Performing Lab: [address] [address] UREA NITROGEN 12 mg/dL 7-25 GLUCOSE 104 mg/dL H 65-100 SODIUM 136 mmol/L 135-145 POTASSIUM 4.7 mmol/L 3.5-5.0 CHLORIDE 106 mmol/L 100-110 CO2 18 meq/L L 20-30 CREATININE, Serum 1.15 mg/dL 0.50-1.40 eGFR(CKD-EPI 2020) 65 mL/min >60 Aug 22, 2024 10:26 AM [facility] LIVER FUNCTION Specimen Type: SERUM No comment entered. Ordering Provider: COURTNEY FAROOQ Report Released Date/Time: Aug 22, 2024 10:17 AM Reporting Lab: [address] [address] Performing Lab: [address] [address] PROTEIN,TOTAL 6.0 g/dL 6.0-8.3 ALBUMIN 3.1 g/dL L 3.5-5.0 ALKALINE PHOSPHATASE 138 U/L 40-150 AST 27 U/L 5-34 ALT 36 U/L BILIRUBIN, TOTAL 1.0 mg/dL 0.2-1.2 Aug 16, 2024 01:58 PM [facility] URINALYSIS Specimen Type: URINE Comment: If Glucose = >500 and Ketones are positive, please alert the Physician. Ordering Provider: COURTNEY FAROOQ Report Released Date/Time: Aug 08, 2024 01:49 PM Reporting Lab: [address] [address] Performing Lab: [address] [address] UA COLOR Light-Yellow Yellow UA APPEARANCE Clear Clear UA GLUCOSE Normal mg/dL Negative UA KETONES NEGATIVE mg/dL Negative UA BLOOD NEGATIVE mg/dL Negative UA PROTEIN 10 mg/dL Negative UA NITRITE NEGATIVE mg/dL Negative UA BILIRUBIN NEGATIVE mg/dL Negative UA SPECIFIC GRAVITY 1.017 1.016-1.02 2 UA pH 6.0 5.0-9.0 UA UROBILINOGEN Normal mg/dL <2.0 UA LEUKOCYTE TRACE Negative Aug 16, 2024 01:58 PM [facility] MICROALBUMIN CREATININE RATIO PANEL Specimen Type: URINE No comment entered. Ordering Provider: COURTNEY FAROOQ Report Released Date/Time: Aug 08, 2024 01:49 PM Reporting Lab: [facility] [address] [address] Performing Lab: [address] [address] MICROALBUMIN/CR EATININE RATIO 7.3 mg/g 0-29.9 MICROALBUMIN,QU ANTITATIVE 0.8 mg/dL RR UNAVAIL CREATININE URINE 109.38 mg/dL Aug 16, 2024 01:58 PM [facility] MICROSCOPIC AUTOMATED, URINE Specimen Type: URINE Comment: If Glucose = >500 and Ketones are positive, please alert the Physician. Ordering Provider: COURTNEY FAROOQ Report Released Date/Time: Aug 08, 2024 01:49 PM Reporting Lab: [address] [address] Performing Lab: [address] [address] UA WBC 0-5 /[HPF] 0-5 UA BACTERIA 1+ /[HPF] NoneObs UA MUCUS FEW /[LPF] Trace UA HYALINE CASTS 2-4 /[LPF] 0-2 UA RBC 3-5 /[HPF] 0-3 Aug 15, 2024 10:14 AM [facility] BASIC METABOLIC PANEL (fasting) Specimen Type: SERUM No comment entered. Ordering Provider: COURTNEY FAROOQ Report Released Date/Time: Aug 08, 2024 01:49 PM Reporting Lab: [address] [address] Performing Lab: [address] [address] UREA NITROGEN 28 mg/dL H 7-25 GLUCOSE 98 mg/dL 65-100 SODIUM 133 mmol/L L 135-145 POTASSIUM 5.3 mmol/L H 3.5-5.0 CHLORIDE 106 mmol/L 100-110 CO2 15 meq/L L 20-30 CREATININE, Serum 1.31 mg/dL 0.50-1.40 eGFR(CKD-EPI 2021) 55 mL/min L >60 Aug 15, 2024 10:14 AM [facility] LIPID PANEL FASTING Specimen Type: SERUM No comment entered. Ordering Provider: COURTNEY FAROOQ Report Released Date/Time: Aug 08, 2024 01:49 PM Reporting Lab: [facility] [address] [address] Performing Lab: [address] [address] CHOLESTEROL 69 mg/dL TRIGLYCERIDE 88 mg/dL 0-150 LDL calculated 16 mg/dL 0-129 CHOL/HDL 2.0 HDL CHOLESTEROL 35 mg/dL L 40-60 Aug 15, 2024 10:14 AM [facility] LIVER FUNCTION Specimen Type: SERUM No comment entered. Ordering Provider: COURTNEY FAROOQ Report Released Date/Time: Aug 08, 2024 01:49 PM Reporting Lab: [address] [address] Performing Lab: [facility] [address] [address] PROTEIN,TOTAL 6.2 g/dL 6.0-8.3 ALBUMIN 3.2 g/dL L 3.5-5.0 ALKALINE PHOSPHATASE 103 U/L 40-150 AST 17 U/L 5-34 ALT 25 U/L BILIRUBIN, TOTAL 0.9 mg/dL 0.2-1.2 Aug 15, 2024 10:14 AM [facility] HEMOGLOBIN A1C PANEL Specimen Type: BLOOD Comment: [...] Aug 08, 2024 01:49 PM Reporting Lab: [address] [address] Performing Lab: [address] [address] HEMOGLOBIN A1C 6.7 H 4.0-5.6 Aug 15, 2024 10:14 AM [facility] CBC AND DIFF (AUTO) Specimen Type: BLOOD No comment entered. Ordering Provider: COURTNEY FAROOQ Report Released Date/Time: Aug 08, 2024 01:49 PM Reporting Lab: [address] [address] Performing Lab: [address] [address] WBC 7.54 10*3/uL 4.50-11.00 RBC 3.63 10*6/uL [...] 10*3/uL 0.00-0.00 Aug 15, 2024 10:14 AM [facility] TSH Specimen Type: SERUM No comment entered. Ordering Provider: COURTNEY FAROOQ Report Released Date/Time: Aug 08, 2024 01:49 PM Reporting Lab: [facility] [address] [address] [facility]: [facility] [address] TSH 1.84 u[IU]/mL 0.35-5.00 Aug 15, 2024 10:14 AM [facility] URIC ACID Specimen Type: SERUM No comment entered. Ordering Provider: COURTNEY FAROOQ Report Released Date/Time: Aug 08, 2024 01:49 PM Reporting Lab: [address] [address] Performing Lab: [address] [address] URIC ACID 7.9 mg/dL H 3.5-7.2 Aug 15, 2024 10:14 AM [facility] CALCIUM Specimen Type: SERUM No comment entered. Ordering Provider: COURTNEY FAROOQ Report Released Date/Time: Aug 08, 2024 01:49 PM Reporting Lab: [address] [address] [facility]forming Lab: [facility] [address] CALCIUM 8.5 mg/dL 8.5-10.2 Aug 15, 2024 10:14 AM [facility] VITAMIN D (25-OH) Specimen Type: SERUM No comment entered. Ordering Provider: COURTNEY FAROOQ Report Released Date/Time: Aug 08, 2024 01:49 PM Reporting Lab: [address] [address] Performing Lab: [facility] [address] VITAMIN D (25-OH) <13 ng/mL L 20-50 [...] 03, 2023 08:58 AM VA-TOBACCO FORMER USER [facility] Tobacco Use History This section includes a history of the smoking, or tobacco-related health factors, that were collected on or before the date of the Encounter. The data comes from the [place] facility where the Encounter took place. Date/Time Smoking Status/Tobacco Use Comment F acility Jun 03, 2023 08:58 AM [place]-TOBACCO QUIT 15 YRS OR MORE [facility] Advance Directives: All historical and current Section [...] PEDRAZA Jun 30, 2019 ADVANCE DIRECTIVE DEOYECENIACASSIE [facility] Encounter Notes: All associated encounter notes This section contains the clinical notes associated to the Encounter. Date/Time Encounter Note(s) Provider Source Aug 28, 2024 11:29 AM SOCIAL WORK NOTE: LOCAL TITLE: PERSONAL CARE SERVICES REVIEW STANDARD TITLE: SOCIAL WORK NOTE DATE OF NOTE: AUG 28, 2024@11:29 ENTRY DATE: AUG 28, 2024@11:29:30 AUTHOR: KEESHA DEAN EXP COSIGNER: URGENCY: STATUS: COMPLETED Personal Care Services Review Type of review: Reauthorization Information to complete oversight obtained from: Review of medical record Review of community vendor submitted documentation Holder's surrogate/caregiver Specify Contact: CAROL Community vendor Name: NYDIA Community vendor point of contact Name: PATRICIA The care plan has been reviewed. Care rendered as authorized. meets administrative eligibility criteria. meets clinical eligibility criteria. Case Mix Tool: Date Completed: Aug Case Mix Score: K Second range of hours to be used. Plan: Authorization(s) updated Homemaker/Home Health Aide Standardized Episode of Care (SEOC) SEOC duration: 365 days Hours per SEOC duration: 40 HRS/WEEK Date of next review: 02/22/25 /inge/ Keesha Dean RN, RN Signed: 08/28/2024 11:30 KEESHA DEAN [facility]
--- OUTSIDE RECORDS SUMMARY | 2024-10-17 15:31 | XMS_ITS | Encounter Summary ---
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 ([place]) Organization [facility] [place] Address [address] [place] [address] Care Team Providers Care Traffic Police Officer Name Role Phone GURPREET PEREZ Primary Care [...] to Policy Harding [facility] PLAN [facility] (WNR) MEDICARE ADVANTAGE [facility] (WNR) Oct 25, 2011 [facility] [id number] FATEMEH GOMEZ PATIENT Selected Encounter This section includes the information on record at [place] for the Encounter. Date/Time Encounter Type Encounter Description Reason Pro vider Source Aug 28, 2024 12:00 PM Outpatient Encounter COMMUNITY [...] 29, 2024 08:00 AM AMBULATORY - MEDICINE [facility] Sep 20, 2024 09:00 AM [facility] Oct 03, 2024 11:30 AM AMBULATORY - [facility] Active, Pending, and Scheduled Orders This [...] [facility] NON-SKILLED HOME HEALTH AIDE Cons Accredited [facility] Sep 20, 2024 10:06 AM Consult Order NUTRITION ASSESSMENT/EDUCATION/SPO PC OUTPT Cons Accredited Pharmacy Technician's Choice [place] Lab Results: +/- 30 days of the encounter This section includes the Chemistry and Hematology Lab Results on record with PA for the patient. Radiology Reports and Pathology Reports are provided separately, in subsequent sections. Lab Results This section contains the Chemistry/Hematology Results that were resulted 30 days before or 30 daysafter the date of the Encounter. Date/Time Source Result Type Result - Unit Interpretation Reference Range Comment Aug 22, 2024 10:26 AM [place] FOLATE (OX) Specimen Type: SERUM No comment entered. Ordering Provider: COURTNEY FAROOQ Report Released Date/Time: Aug 22, 2024 10:17 AM Reporting Lab: [facility] [address] [facility] [address] Performing Lab: [facility] [address] [facility] [address] FOLATE (WROX) 3.90 ng/mL L >5.2 Aug 22, 2024 10:26 AM [place] RETICULOCYTES Specimen Type: BLOOD Comment: Smear reviewed, auto CBC w/Diff accepted. Ordering Provider: COURTNEY FAROOQ Report Released Date/Time: Aug 22, 2024 10:17 AM Reporting Lab: [facility] [address] [address] Performing Lab: [address] [address] RETIC % 2.6 H 0.6-2.0 RETIC, ABS 91.6 10*3/uL H 30.0-90.0 RET-HE % 29.6 27.9-42.0 Aug 22, 2024 10:26 AM [place] IRON & TIBC PANEL Specimen Type: SERUM No comment entered. Ordering Provider: COURTNEY FAROOQ Report Released Date/Time: Aug 22, 2024 10:17 AM Reporting Lab: [address] [address] Performing Lab: [address] [address] TIBC 210 ug/dL 204-475 IRON 43 ug/dL 40-160 Transferrin Saturation 20.5 20.0-50.0 Transferrin (TRF) 159 mg/dL L 200-360 Aug 22, 2024 10:26 AM [place] CBC AND DIFF (AUTO) Specimen Type: BLOOD Comment: Smear reviewed, auto CBC w/Diff accepted. Ordering Provider: COURTNEY FAROOQ Report Released Date/Time: Aug 22, 2024 10:17 AM Reporting Lab: [address] [address] Performing Lab: [address] [address] WBC 7.35 10*3/uL 4.50-11.00 RBC 3.51 10*6/uL [...] H 0.00-0.00 Aug 22, 2024 10:26 AM [place] FERRITIN Specimen Type: SERUM No comment entered. Ordering Provider: COURTNEY FAROOQ Report Released Date/Time: Aug 22, 2024 10:17 AM Reporting [facility]: [facility] [address] [address] Performing Lab: [address] [address] FERRITIN 1130 ng/mL H 20-300 Aug 22, 2024 10:26 AM [place] VITAMIN B12 Specimen Type: SERUM No comment entered. Ordering Provider: COURTNEY FAROOQ Report Released Date/Time: Aug 22, 2024 10:17 AM Reporting Lab: [facility] [address] [address] Performing Lab: [facility] [address] [address] VITAMIN B12 378 pg/mL 200-900 Aug 22, 2024 10:26 AM [place] BASIC METABOLIC PANEL (non-fasting) Spe cimen Type: SERUM No comment entered. Ordering Provider: COURTNEY FAROOQ Report Released Date/Time: Aug 22, 2024 10:17 AM Reporting Lab: [facility] [address] [address] Performing Lab: [address] [address] UREA NITROGEN 12 mg/dL 7-25 GLUCOSE 104 mg/dL H 65-100 SODIUM 136 mmol/L 135-145 POTASSIUM 4.7 mmol/L 3.5-5.0 CHLORIDE 106 mmol/L 100-110 CO2 18 meq/L L 20-30 CREATININE, Serum 1.15 mg/dL 0.50-1.40 eGFR(CKD-EPI 2020) 65 mL/min >60 Aug 22, 2024 10:26 AM [place] LIVER FUNCTION Specimen Type: SERUM No comment entered. Ordering Provider: COURTNEY FAROOQ Report Released Date/Time: Aug 22, 2024 10:17 AM Reporting Lab: [address] [address] Performing Lab: [address] [address] PROTEIN,TOTAL 6.0 g/dL 6.0-8.3 ALBUMIN 3.1 g/dL L 3.5-5.0 ALKALINE PHOSPHATASE 138 U/L 40-150 AST 27 U/L 5-34 ALT 36 U/L BILIRUBIN, TOTAL 1.0 mg/dL 0.2-1.2 Aug 16, 2024 01:58 PM [facility] URINALYSIS Specimen Type: URINE Comment: If Glucose = >500 and Ketones are positive, please alert the Physician. Ordering Provider: COURTNEY FAROOQ Report Released Date/Time: Aug 08, 2024 01:49 PM Reporting Lab: [address] [address] Performing Lab: [address] [address] UA COLOR Light-Yellow Yellow UA APPEARANCE Clear Clear UA GLUCOSE Normal mg/dL Negative UA KETONES NEGATIVE mg/dL Negative UA BLOOD NEGATIVE mg/dL Negative UA PROTEIN 10 mg/dL Negative UA NITRITE NEGATIVE mg/dL Negative UA BILIRUBIN NEGATIVE mg/dL Negative UA SPECIFIC GRAVITY 1.017 1.016-1.02 2 UA pH 6.0 5.0-9.0 UA UROBILINOGEN Normal mg/dL <2.0 UA LEUKOCYTE TRACE Negative Aug 16, 2024 01:58 PM [facility] MICROALBUMIN CREATININE RATIO PANEL Specimen Type: URINE No comment entered. Ordering Provider: COURTNEY FAROOQ Report Released Date/Time: Aug 08, 2024 01:49 PM Reporting Lab: [address] [address] Performing Lab: [address] [address] MICROALBUMIN/CR EATININE RATIO 7.3 mg/g 0-29.9 MICROALBUMIN,QU ANTITATIVE 0.8 mg/dL RR UNAVAIL CREATININE URINE 109.38 mg/dL Aug 16, 2024 01:58 PM [facility] MICROSCOPIC AUTOMATED, URINE Specimen Type: URINE Comment: If Glucose = >500 and Ketones are positive, please alert the Physician. Ordering Provider: COURTNEY FAROOQ Report Released Date/Time: Aug 08, 2024 01:49 PM Reporting Lab: [address] [address] Performing Lab: [address] [address] UA WBC 0-5 /[HPF] 0-5 UA BACTERIA 1+ /[HPF] NoneObs UA MUCUS FEW /[LPF] Trace UA HYALINE CASTS 2-4 /[LPF] 0-2 UA RBC 3-5 /[HPF] 0-3 Aug 15, 2024 10:14 AM [facility] BASIC METABOLIC PANEL (fasting) Specimen Type: SERUM No comment entered. Ordering Provider: COURTNEY FAROOQ Report Released Date/Time: Aug 08, 2024 01:49 PM Reporting Lab: [address] [address] Performing Lab: [address] [address] UREA NITROGEN 28 mg/dL H 7-25 GLUCOSE 98 mg/dL 65-100 SODIUM 133 mmol/L L 135-145 POTASSIUM 5.3 mmol/L H 3.5-5.0 CHLORIDE 106 mmol/L 100-110 CO2 15 meq/L L 20-30 CREATININE, Serum 1.31 mg/dL 0.50-1.40 eGFR(CKD-EPI 2020) 55 mL/min L >60 Aug 15, 2024 10:14 AM [facility] LIPID PANEL FASTING Specimen Type: SERUM No comment entered. Ordering Provider: COURTNEY FAROOQ Report Released Date/Time: Aug 08, 2024 01:49 PM Reporting Lab: [facility] [address] [facility] [address] Performing Lab: [address] [address] CHOLESTEROL 69 mg/dL TRIGLYCERIDE 88 mg/dL 0-150 LDL calculated 16 mg/dL 0-129 CHOL/HDL 2.0 HDL CHOLESTEROL 35 mg/dL L 40-60 Aug 15, 2024 10:14 AM [facility] LIVER FUNCTION Specimen Type: SERUM No comment entered. Ordering Provider: COURTNEY FAROOQ Report Released Date/Time: Aug 08, 2024 01:49 PM Reporting Lab: [address] [address] Performing Lab: [facility] [address] [facility] [address] PROTEIN,TOTAL 6.2 g/dL 6.0-8.3 ALBUMIN 3.2 g/dL L 3.5-5.0 ALKALINE PHOSPHATASE 103 U/L 40-150 AST 17 U/L 5-34 ALT 25 U/L BILIRUBIN, TOTAL 0.9 mg/dL 0.2-1.2 Aug 15, 2024 10:14 AM [facility] HEMOGLOBIN A1C PANEL Specimen Type: BLOOD [...] 08, 2024 01:49 PM Reporting Lab: [address] [address] Performing Lab: [address] [address] HEMOGLOBIN A1C 6.7 H 4.0-5.6 Aug 15, 2024 10:14 AM [facility] TSH Specimen Type: SERUM No comment entered. Ordering Provider: COURTNEY FAROOQ Report Released Date/Time: Aug 08, 2024 01:49 PM Reporting Lab: [facility] [address] [facility] [address] Performing Lab: [facility] [address] [address] TSH 1.84 u[IU]/mL 0.35-5.00 Aug 15, 2024 10:14 AM [facility] CBC AND DIFF (AUTO) Specimen Type: BLOOD No comment entered. Ordering Provider: COURTNEY FAROOQ Report Released Date/Time: Aug 08, 2024 01:49 PM Reporting Lab: [address] [address] Performing Lab: [address] [address] WBC 7.54 10*3/uL 4.50-11.00 RBC 3.63 10*6/uL [...] 10*3/uL 0.00-0.00 Aug 15, 2024 10:14 AM [facility] CALCIUM Specimen Type: SERUM No comment entered. Ordering Provider: COURTNEY FAROOQ Report Released Date/Time: Aug 08, 2024 01:49 PM Reporting Lab: [facility] [address] [facility] [address] Performing Lab: [address] [address] CALCIUM 8.5 mg/dL 8.5-10.2 Aug 15, 2024 10:14 AM [facility] URIC ACID Specimen Type: SERUM No comment entered. Ordering Provider: COURTNEY FAROOQ Report Released Date/Time: Aug 08, 2024 01:49 PM Reporting Lab: [facility] [address] [facility] [address] Performing Lab: [facility] [address] [facility] [address] URIC ACID 7.9 mg/dL H 3.5-7.2 Aug 15, 2024 10:14 AM [facility] VITAMIN D (25-OH) Specimen Type: SERUM No comment entered. Ordering Provider: COURTNEY FAROOQ Report Released Date/Time: Aug 08, 2024 01:49 PM Reporting Lab: [facility] [address] [facility] [address] Performing Lab: [address] [address] VITAMIN D (25-OH) <13 ng/mL L 20-50 [...] 03, 2023 08:58 AM VA-TOBACCO FORMER USER [facility] Tobacco Use History This section includes a history of the smoking, or tobacco-related health factors, that were collected on or before the date of the Encounter. The data comes from the [place] facility where the Encounter took place. Date/Time Smoking Status/Tobacco Use Comment F acility Jun 03, 2023 08:58 AM PA-TOBACCO QUIT 15 YRS OR MORE [facility] Advance Directives: All historical and [...] Jun 30, 2019 ADVANCE DIRECTIVE CASSIE POWELL [facility] Encounter Notes: All associated encounter notes This section contains the clinical notes associated to the Encounter. Date/Time Encounter Note(s) Provider Source Aug 28, 2024 12:00 PM NONVA CONSULT: LOCAL TITLE: COMMUNITY CARE-CONSULT RESULT NOTE STANDARD TITLE: NONVA CONSULT DATE OF NOTE: AUG 28, 2024@12:00 ENTRY DATE: SEP 28, 2024@13:36:01 AUTHOR: LIBAN TRIMBLE EXP COSIGNER: URGENCY: STATUS: COMPLETED VistA Imaging - Scanned Document SCANNED DOCUMENT SIGNATURE NOT REQUIRED Electronically Filed: 09/28/2024 by: LIBAN TRIMBLE MEDICAL SPEEDOMETER INSPECTORLIBAN CARROLL [facility]
--- OUTSIDE RECORDS SUMMARY | 2024-10-17 15:31 | XMS_ITS | Encounter Summary ---
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 [place] Affairs ([place]) Organization Department of [place]) Address [address] [place] [id number] Care Team Providers Care Director Of Assisted Living Name Role Phone GURPREET PEREZ Primary Care [...] Harding's Name Patient's Relationship to Policy Harding [facility] (WNR) MEDICARE ADVANTAGE [facility] (R) Oct 25, 2011 [facility] [id number] FATEM[address] GOMEZ PATIENT Selected Encounter This section includes the information on record at [place] for the Encounter. Date/Time Encounter Type Encounter Description Reason Provider Source Oct 03, 2024 11:30 AM COMPRE OPH EXAM NEW PT 1/> OPTOMETRY ICD-10-CM E11.9 Type 2 diabetes mellitus without complications JONATHAN MATAMOROS Luisito Encounter Template Text not used by [place] Assessments - Encounter Diagnoses This section includes the primary and secondary diagnoses documented for the Encounter. Date/Time Primary/Secondary Diagnosis Diagnosis Name Provider Source Oct 03, 2024 01:04 PM PRIMARY Type 2 diabetes mellitus without complications JONATHAN MATAMOROS [facility] [place] [facility] Oct 03, 2024 01:04 PM SECONDARY Hypermetropia, bilateral JONATHAN MATAMOROS [facility] [place] [facility] Oct 03, 2024 01:04 PM SECONDARY Nexdtve age-related mclr degn, bilateral, early dry stage JONATHAN MATAMOROS [facility] [place] [facility] Oct 03, 2024 01:04 PM SECONDARY Presence of intraocular lens JONATHAN MATAMOROS [facility] Plan of Treatment: Future Appointments (+ 6 months) and Future Tests (+/- 45 days) The Plan of Treatment section includes future care activities for the patient from all [place] treatmentfacilities. This section includes future appointments and future orders which are active, pending or scheduled. Active, Pending, and Scheduled Orders This section includes a listing of several types of active, pending, and scheduled orders, including clinic medications orders, diagnostic test orders, procedure orders and consult orders; where the start date of the order is 45 days before the date of the Encounter or 45 days after the date of theEncounter. The data comes from all [place] treatment facilities. Test Date/Time Test Type Test Details Facility Name Aug 28, 2024 04:23 PM Consult Order COMMUNITY CARE-[facility] NON-SKILLED HOME HEALTH AIDE Cons Block Out Machine Operator's Choice [facility] Sep 20, 2024 10:06 AM Consult Order NUTRITION ASSESSMENT/EDUCATION/SPO PC OUTPT Cons Block Out Machine Operator's Choice [facility] Social History: Smoking Status (Most current) and [...] 03, 2023 08:58 AM VA-TOBACCO FORMER USER [facility] Tobacco Use History This section includes a history of the smoking, or tobacco-related health factors, that were collected on or before the date of the Encounter. The data comes from the [place] facility where the Encounter took place. Date/Time Smoking Status/Tobacco Use Comment F acility Jun 03, 2023 08:58 AM OR-TOBACCO QUIT 15 YRS OR MORE [facility] [...] MALE NOT OR Last eye exam: 07/2023 [facility] Reason for Visit/CC: new patient here for [...] FOHx: MHx: Code Description R54. Frail elderly ([facility] 749300559) Z77.29 Exposure to potentially hazardous substance ([facility] [id number]) L28.2 Pruritic rash ([facility] [id number]) J42. Chronic bronchitis ([facility] [id number]) J47.9 Bronchiectasis ([facility] [id number]) R63.4 Weight loss ([facility] 66870267) R05.3 Chronic cough ([facility] 29441790) H91.90 Chronic deafness ([facility] 298297769) E11.9 Diabetes mellitus type 2 ([facility] 95034131) E78.5 Hyperlipidemia ([facility] 49826634) I10. Benign essential hypertension ([facility] 8798390) D64.9 Anemia ([facility] [id number]) I25.10 Atherosclerosis of mohegan coronary artery ([facility] 358332177) Z86.69 H/O: vertigo ([facility] [id number]) E16.2 Hypoglycemia ([facility] [id number]) R69. Chronic orthostatic hypotension ([facility] 19089428) R41.0 Confusion ([facility] [id number]) Other: SYSTEMIC MEDICATIONS/OCULAR MEDICATIONS: Active and Recently [...] refraction and tonometry all performed now by retail maintenance technician and reviewed by attending provider. Dilation drops instilled by retail maintenance technician after angle assessment and dilation warning [...] list may not be complete. Please check JLV. Allergies/ADRs (Tool #5) FACILITY ALLERGY/ADR -------- No Remote Allergy/ADR Data available for this patient [facility] [place] [facility] INFLUENZA VACCINE [facility] [place] [facility] MINOCYCLINE [facility] [place] [facility] SULFA DRUGS [facility] SULFAMETHOXAZOLE/TRIMETHOP RIM Med Recon [facility] (Tool #1) INCLUDED IN THIS LIST: Alphabetical list of active outpatient prescriptions dispensed from this OR (local) and dispensed from another OR or [facility] facility (remote) as well as inpatient orders (local pending and active), local clinic medications, locally documented non-VA medications, and local prescriptions that have or been discontinued in the past 90 days. Non-VA Meds Last Documented On: Jul 29, 2023 NOTE The display of VA prescriptions dispensed from another OR or [facility]D facility (remote) is limited to active outpatient prescription entries matched to National Drug File at the originating site and may not include some items such as investigational drugs, compounds, etc. NOT INCLUDED IN THIS LIST: Medications self-entered by the patient into personal health records (i.e. SCM-GL) are NOT included in this list. Non-VA medications documented outside this OR, remote inpatient orders (regardless of status) and [...] prescribed by Non-VA provider. Indication: FOR HIGH BLOOD PRESSURE OUTPT MULTIVITAMIN/MINERALS SENIOR FORMULA TAB (Status = Active) TAKE 1 TABLET BY MOUTH ONCE DAILY FOR VITAMIN SUPPLEMENTATION Rx# [id number] Last Released: 09/28/24 Qty/Days Supply: 60 Rx Expiration Date: 09/21/25 Refills Remainin Indication: FOR VITAMIN SUPPLEMENTATION Non-VA TRELEGY ELLIPTA 100/62.5/25MCG INH 30D 100/62.5/25MCG INH 30D INHALE 1 INHALATION BY MOUTH ONCE DAILY Patient wants to buy from Non-VA pharmacy. Medication prescribed by Non-VA provider. Indication: FOR COPD Non-VA TRIAMCINOLONE ACETONIDE 0.1% CREAM APPLY A THIN LAYER TOPICALLY ONCE DAILY Patient wants to buy from Non-VA pharmacy. Medication prescribed by Non-VA provider. Indication: FOR ITCHING SUPPLIES OUTPT DEPEND FITTED BRIEF,MAXIMUM LARGE (Status = ) USE 1 BRIEF DIRECTED THREE TIMES DAILY NEEDED Rx# [id number] Last Released: 09/06/24 Qty/Days Supply: 288/90 Rx Expiration Date: 09/29/24 Refills Remainin OUTPT DEPEND UNDERWEAR,MAXIMUM,MEN LARGE (Status = ) USE 1 BRIEF DIRECTED THREE TIMES DAILY NEEDED URINARY INCONTINENCE Rx# [id number] Last Released: 11/19/23 Qty/Days Supply: 272/90 Rx Expiration Date: 07/12/24 Refills Remainin Indication: URINARY INCONTINENCE OUTPT GLOVE VINYL MEDIUM PWDR-FREE NONSTERILE (Status = Active) USE GLOVE(S) THREE TIMES DAILY NEEDED INCONTINENCE CARE Rx# [id number] Last Released: 09/06/24 Qty/Days Supply: 100/30 Rx Expiration Date: 06/07/25 Refills Remainin Indication: INCONTINENCE CARE OUTPT TRIAD WOUND DRESSING TOP PASTE (Status = ) APPLY SUFFICIENT AMOUNT TOPICALLY TWICE DAILY FOR BED SORES Rx# [id number] Last Released: 11/17/23 Qty/Days Supply: 71/30 Rx Expiration Date: 07/29/24 Refills Remainin Indication: FOR BED SORES OUTPT UNDERPAD,BED ULTRASORB [id number] M#3136 (Status = Discontinued) USE 1 UNDERPAD TOPICALLY TWICE DAILY NEEDED URINARY INCONTINENCE Rx# [id number] Last Released: 07/13/24 Qty/Days Supply: 80/30 Rx Expiration Date: 10/08/24 Refills Remainin Indication: URINARY INCONTINENCE OUTPT UNDERPAD,BED ULTRASORB [id number] M#3136 (Status = Active) USE 1 UNDERPAD TOPICALLY TWICE DAILY NEEDED URINARY INCONTINENCE Rx# [id number] Last Released: 08/13/24 Qty/Days Supply: 80/30 Rx Expiration Date: 08/12/25 Refills Remainin Indication: URINARY INCONTINENCE EYE: Visual Function Reminder: Normal Vision: 20/25 or better: Unspecified disorder of refraction or accommodation (367.9). /inge/ JONATHAN MATAMOROS OD [employer] Barista Signed: 10/03/2024 13:05 JONATHAN MATAMOROS [facility] Oct 03, 2024 09:09 AM OPTOMETRY MANAGER DATA CENTER NOTE: LOCAL TITLE: OPTOMETRY MANAGER DATA CENTER NOTE STANDARD TITLE: OPTOMETRY MANAGER DATA CENTER NOTE DATE OF NOTE: OCT 03, 2024@09:09 ENTRY DATE: OCT 03, 2024@09:09:17 AUTHOR: KINGSTON HIDALGO COSIGNER: URGENCY: STATUS: COMPLETED Active problems - Computerized Problem List is the source for the followin. Frail elderly 2. Exposure to potentially hazardous substance 3. Pruritic rash 4. Chronic bronchitis 5. Bronchiectasis 6. Weight loss 7. Chronic cough 8. Chronic deafness 9. Diabetes mellitus type 2 10. Hyperlipidemia 11. Benign essential hypertension 12. Anemia 13. Atherosclerosis of mohegan coronary artery 14. H/O: vertigo 15. Hypoglycemia 16. Chronic orthostatic hypotension 17. Confusion Active Outpatient Medications (including Supplies): Active Outpatient Medications Status 1) GLOVE VINYL MEDIUM PWDR-FREE NONSTERILE USE GLOVE(S) THREE ACTIVE TIMES DAILY NEEDED Indication: INCONTINENCE CARE 2) MULTIVITAMIN/MINERALS SENIOR FORMULA TAB TAKE 1 TABLET BY ACTIVE MOUTH ONCE DAILY Indication: FOR VITAMIN SUPPLEMENTATION 3) UNDERPAD,BED ULTRASORB [id number] M#3136 USE 1 UNDERPAD ACTIVE TOPICALLY TWICE [...] today's visit. Date of last eye exam:08/16/2023 [facility] Location: [facility] Chief Complaint:Patient here today for New patient [...] Last A1C: HEMOGLOBIN A1C PANEL BLOOD (LAV-BLOOD) SP #[id number] Collection time: Aug 15, 2024@10:14 HEMOGLOBIN A1C [...] clear duplicate frames. /inge/ KINGSTON SEGURA [facility] TECHINICIAN Signed: 10/03/2024 11:57 KINGSTON HIDALGO [facility]
--- OUTSIDE RECORDS SUMMARY | 2024-10-17 15:31 | XMS_ITS ---
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 Organization [facility] [place] Address [address] [place] [address] Care Team Providers Care Field Marketing Representative Name Role Phone GURPREET PEREZ Primary [...] Name Patient's Relationship to Policy Harding [facility] PLAN [facility] (WNR) MEDICARE ADVANTAGE [facility] (WNR) Oct 25, 2011 [facility] [id number] FATEM[address] GOMEZ PATIENT Selected Encounter This section includes the information on record at [place] for the Encounter. Date/Time Encounter Type Encounter Description Reason Pro vider Source Aug 04, 2024 12:00 PM Outpatient Encounter COMMUNITY CARE [...] 20 appointments. The data comes from all [facility]. Appointment Date/Time Appointment Type Appointme nt Facility Name Aug 05, 2024 08:00 AM AMBULATORY - MEDICINE [facility] Aug 22, 2024 09:30 AM AMBULATORY - MEDICINE [facility] Aug 29, 2024 08:00 AM [facility] Sep 20, 2024 09:00 AM AMBULATORY - MEDICINE [facility] Oct 03, 2024 11:30 AM AMBULATORY MEDICINE [facility] Active, Pending, and Scheduled Orders This section includes a listing of several types of active, pending, and scheduled orders, including clinic medications orders, diagnostic test orders, procedure orders and consult orders; where the start date of the order is 45 days before the date of the Encounter or 45 days after the date of theEncounter. The data comes from all [facility]. Test Date/Time Test Type Test Details Facility Name Aug 28, 2024 04:23 PM Consult Order [facility] NON-SKILLED HOME HEALTH AIDE Cons Veterinary Medical Officer's Choice [facility] Lab Results: +/- 30 days of [...] Range Comment Aug 22, 2024 10:26 AM [place] FOLATE (OX) Specimen Type: SERUM No comment entered. Ordering Provider: COURTNEY FAROOQ Report Released Date/Time: Aug 22, 2024 10:17 AM Reporting Lab: [facility] [address] [facility] [address] Performing Lab: [facility] [address] [facility] [address] FOLATE (WROX) 3.90 ng/mL L >5.2 Aug 22, 2024 10:26 AM [place] RETICULOCYTES Specimen Type: BLOOD Comment: Smear reviewed, auto CBC w/Diff accepted. Ordering Provider: COURTNEY FAROOQ Report Released Date/Time: Aug 22, 2024 10:17 AM Reporting Lab: [address] [address] Performing Lab: [address] [address] RETIC % 2.6 H 0.6-2.0 RETIC, ABS 91.6 10*3/uL H 30.0-90.0 RET-HE % 29.6 27.9-42.0 Aug 22, 2024 10:26 AM [place] IRON & TIBC PANEL Specimen Type: SERUM No comment entered. Ordering Provider: COURTNEY FAROOQ Report Released Date/Time: Aug 22, 2024 10:17 AM Reporting Lab: [address] [address] Performing Lab: [address] [address] TIBC 210 ug/dL 204-475 IRON 43 ug/dL 40-160 Transferrin Saturation 20.5 20.0-50.0 Transferrin (TRF) 159 mg/dL L 200-360 Aug 22, 2024 10:26 AM [place] CBC AND DIFF (AUTO) Specimen Type: BLOOD Comment: Smear reviewed, auto CBC w/Diff accepted. Ordering Provider: COURTNEY FAROOQ Report Released Date/Time: Aug 22, 2024 10:17 AM Reporting Lab: [address] [address] Performing Lab: [address] [address] WBC 7.35 10*3/uL 4.50-11.00 RBC 3.51 10*6/uL [...] H 0.00-0.00 Aug 22, 2024 10:26 AM [place] FERRITIN Specimen Type: SERUM No comment entered. Ordering Provider: COURTNEY FAROOQ Report Released Date/Time: Aug 22, 2024 10:17 AM Reporting Lab: [address] [address] Performing Lab: [address] [address] FERRITIN 1130 ng/mL H 20-300 Aug 22, 2024 10:26 AM [place] VITAMIN B12 Specimen Type: SERUM No comment entered. Ordering Provider: COURTNEY FAROOQ Report Released Date/Time: Aug 22, 2024 10:17 AM Reporting Lab: [address] [address] Performing Lab: [address] [address] VITAMIN B12 378 pg/mL 200-900 Aug 22, 2024 10:26 AM [place] BASIC METABOLIC PANEL (non-fasting) Spe cimen Type: SERUM No comment entered. Ordering Provider: COURTNEY FAROOQ Report Released Date/Time: Aug 22, 2024 10:17 AM Reporting Lab: [address] [address] Performing Lab: [address] [place] [address] UREA NITROGEN 12 mg/dL 7-25 GLUCOSE 104 mg/dL H 65-100 SODIUM 136 mmol/L 135-145 POTASSIUM 4.7 mmol/L 3.5-5.0 CHLORIDE 106 mmol/L 100-110 CO2 18 meq/L L 20-30 CREATININE, Serum 1.15 mg/dL 0.50-1.40 eGFR(CKD-EPI 2020) 65 mL/min >60 Aug 22, 2024 10:26 AM [place] LIVER FUNCTION Specimen Type: SERUM No comment entered. Ordering Provider: COURTNEY FAROOQ Report Released Date/Time: Aug 22, 2024 10:17 AM Reporting Lab: [address] [address] Performing Lab: [address] [address] PROTEIN,TOTAL 6.0 g/dL 6.0-8.3 ALBUMIN 3.1 g/dL L 3.5-5.0 ALKALINE PHOSPHATASE 138 U/L 40-150 AST 27 U/L 5-34 ALT 36 U/L BILIRUBIN, TOTAL 1.0 mg/dL 0.2-1.2 Aug 16, 2024 01:58 PM [facility] URINALYSIS Specimen Type: URINE Comment: If Glucose = >500 and Ketones are positive, please alert the Physician. Ordering Provider: COURTNEY FAROOQ Report Released Date/Time: Aug 08, 2024 01:49 PM Reporting Lab: [address] [address] Performing Lab: [address] [address] UA COLOR Light-Yellow Yellow UA APPEARANCE Clear Clear UA GLUCOSE Normal mg/dL Negative UA KETONES NEGATIVE mg/dL Negative UA BLOOD NEGATIVE mg/dL Negative UA PROTEIN 10 mg/dL Negative UA NITRITE NEGATIVE mg/dL Negative UA BILIRUBIN NEGATIVE mg/dL Negative UA SPECIFIC GRAVITY 1.017 1.016-1.02 2 UA pH 6.0 5.0-9.0 UA UROBILINOGEN Normal mg/dL <2.0 UA LEUKOCYTE TRACE Negative Aug 16, 2024 01:58 PM [facility] MICROALBUMIN CREATININE RATIO PANEL Specimen Type: URINE No comment entered. Ordering Provider: COURTNEY FAROOQ Report Released Date/Time: Aug 08, 2024 01:49 PM Reporting Lab: [facility] [address] [facility] [address] Performing Lab: [address] [address] MICROALBUMIN/CR EATININE RATIO 7.3 mg/g 0-29.9 MICROALBUMIN,QU ANTITATIVE 0.8 mg/dL RR UNAVAIL CREATININE URINE 109.38 mg/dL Aug 16, 2024 01:58 PM [facility] MICROSCOPIC AUTOMATED, URINE Specimen Type: URINE Comment: If Glucose = >500 and Ketones are positive, please alert the Physician. Ordering Provider: COURTNEY FAROOQ Report Released Date/Time: Aug 08, 2024 01:49 PM Reporting Lab: [address] [address] Performing Lab: [address] [address] UA WBC 0-5 /[HPF] 0-5 UA BACTERIA 1+ /[HPF] NoneObs UA MUCUS FEW /[LPF] Trace UA HYALINE CASTS 2-4 /[LPF] 0-2 UA RBC 3-5 /[HPF] 0-3 Aug 15, 2024 10:14 AM [facility] BASIC METABOLIC PANEL (fasting) Specimen Type: SERUM No comment entered. Ordering Provider: COURTNEY FAROOQ Report Released Date/Time: Aug 08, 2024 01:49 PM Reporting Lab: [address] [address] Performing Lab: [address] [address] UREA NITROGEN 28 mg/dL H 7-25 GLUCOSE 98 mg/dL 65-100 SODIUM 133 mmol/L L 135-145 POTASSIUM 5.3 mmol/L H 3.5-5.0 CHLORIDE 106 mmol/L 100-110 CO2 15 meq/L L 20-30 CREATININE, Serum 1.31 mg/dL 0.50-1.40 eGFR(CKD-EPI 2020) 55 mL/min L >60 Aug 15, 2024 10:14 AM [facility] LIPID PANEL FASTING Specimen Type: SERUM No comment entered. Ordering Provider: COURTNEY FAROOQ Report Released Date/Time: Aug 08, 2024 01:49 PM Reporting Lab: [address] [address] Performing Lab: [address] [address] CHOLESTEROL 69 mg/dL TRIGLYCERIDE 88 mg/dL 0-150 LDL calculated 16 mg/dL 0-129 CHOL/HDL 2.0 HDL CHOLESTEROL 35 mg/dL L 40-60 Aug 15, 2024 10:14 AM [facility] LIVER FUNCTION Specimen Type: SERUM No comment entered. Ordering Provider: COURTNEY FAROOQ Report Released Date/Time: Aug 08, 2024 01:49 PM Reporting Lab: [address] [address] Performing Lab: [address] [address] PROTEIN,TOTAL 6.2 g/dL 6.0-8.3 ALBUMIN 3.2 g/dL L 3.5-5.0 ALKALINE PHOSPHATASE 103 U/L 40-150 AST 17 U/L 5-34 ALT 25 U/L BILIRUBIN, TOTAL 0.9 mg/dL 0.2-1.2 Aug 15, 2024 10:14 AM [facility] HEMOGLOBIN A1C PANEL Specimen Type: BLOOD [...] 08, 2024 01:49 PM Reporting Lab: [address] [address] Performing Lab: [facility] [address] [facility] [address] HEMOGLOBIN A1C 6.7 H 4.0-5.6 Aug 15, 2024 10:14 AM [facility] TSH Specimen Type: SERUM No comment entered. Ordering Provider: COURTNEY FAROOQ Report Released Date/Time: Aug 08, 2024 01:49 PM Reporting Lab: [facility] [address] [facility] [address] Per[facility] [address] [facility] [address] TSH 1.84 u[IU]/mL 0.35-5.00 Aug 15, 2024 10:14 AM [facility] CBC AND DIFF (AUTO) Specimen Type: BLOOD No comment entered. Ordering Provider: COURTNEY FAROOQ Report Released Date/Time: Aug 08, 2024 01:49 PM Reporting Lab: [facility] [address] [facility] [address] Performing Lab: [address] [address] WBC 7.54 10*3/uL 4.50-11.00 RBC 3.63 10*6/uL [...] 10*3/uL 0.00-0.00 Aug 15, 2024 10:14 AM [facility] CALCIUM Specimen Type: SERUM No comment entered. Ordering Provider: COURTNEY FAROOQ Report Released Date/Time: Aug 08, 2024 01:49 PM Reporting Lab: [address] [address] Performing Lab: [address] [address] CALCIUM 8.5 mg/dL 8.5-10.2 Aug 15, 2024 10:14 AM [facility] URIC ACID Specimen Type: SERUM No comment entered. Ordering Provider: COURTNEY FAROOQ Report Released Date/Time: Aug 08, 2024 01:49 PM Reporting Lab: [address] [address] Performing Lab: [address] [address] URIC ACID 7.9 mg/dL H 3.5-7.2 Aug 15, 2024 10:14 AM [facility] VITAMIN D (25-OH) Specimen Type: SERUM No comment entered. Ordering Provider: COURTNEY FAROOQ Report Released Date/Time: Aug 08, 2024 01:49 PM Reporting Lab: [address] [address] Performing Lab: [address] [address] VITAMIN D (25-OH) <13 ng/mL L 20-50 Social History: Smoking Status (Most current) and Tobacco Use (All prior to encounter date) This section includes the most current, and the historical, smoking and tobacco- related health factors from the [place] facility where the Encounter took place. Current Smoking Status This section includes the most current smoking, or tobacco-related health factor, from the [place] facility where the Encounter took place. Date/Time Current Smoking Status Comment Deana ity Jun 03, 2023 08:58 AM [place]-TOBACCO FORMER USER [facility] Tobacco Use History This section includes a history of the smoking, or tobacco-related health factors, that were collected on or before the date of the Encounter. The data comes from the [place] facility where the Encounter took place. Date/Time Smoking Status/Tobacco Use Comment F acility Jun 03, 2023 08:58 AM [place]-TOBACCO QUIT 15 YRS OR MORE [facility] Advance Directives: All historical and current [...] Jun 30, 2019 ADVANCE DIRECTIVE CASSIE POWELL [facility] Encounter Notes: All associated encounter notes This section contains the clinical notes associated to the Encounter. Date/Time Encounter Note(s) Provider Source Aug 04, 2024 12:00 PM NONVA CONSULT: LOCAL TITLE: COMMUNITY CARE-CONSULT RESULT NOTE STANDARD TITLE: NONVA CONSULT DATE OF NOTE: AUG 04, 2024@12:00 ENTRY DATE: SEP 29, 2024@13:51:01 AUTHOR: LIBAN TRIMBLE EXP COSIGNER: URGENCY: STATUS: COMPLETED VistA Imaging - Scanned Document SCANNED DOCUMENT SIGNATURE NOT REQUIRED Electronically Filed: 09/29/2024 by: LIBAN TRIMBLE MEDICAL PSYCH NP LIBAN TRIMBLE [facility]
--- OUTSIDE RECORDS SUMMARY | 2024-10-17 15:31 | XMS_ITS ---
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 Organization [place] Address [address] [place] [address] Care Team Providers Care Nail Specialist Name Role Phone GURPREET PEREZ Primary [...] Harding's Name Patient's Relationship to Policy Harding [facility] PLAN [facility] (WNR) MEDICARE ADVANTAGE [facility] (WNR) Oct 25, 2011 [facility] [id number] FAT[address] GOMEZ PATIENT Selected Encounter This section includes the information on record at [place] for the Encounter. Date/Time Encounter Type Encounter Description Reason Pro vider Source Sep 20, 2024 09:00 AM Outpatient Encounter PRIMARY CARE/MEDICINE [facility] Encounter [...] 03, 2024 11:30 AM AMBULATORY - [place]ICINE [place] [facility] Active, Pending, and Scheduled Orders This section includes a listing of several types of active, pending, and scheduled orders, including clinic medications orders, diagnostic test orders, procedure orders and consult orders; where the start date of the order is 45 days before the date of the Encounter or 45 days after the date of theEncounter. The data comes from all [place] treatment facilities. Test Date/Time Test Type Test Details Facility Name Aug 28, 2024 04:23 PM Consult Order [facility] NON-SKILLED HOME HEALTH AIDE Cons [place] Member's Choice [place] [facility] Sep 20, 2024 10:06 AM Consult Order NUTRITION ASSESSMENT/EDUCATION/SPO PC OUTPT Cons [place] Member's Choice [facility] Lab Results: +/- 30 days of the [...] Range Comment Aug 22, 2024 10:26 AM [facility] FOLATE (WROX) Specimen Type: SERUM No comment entered. Ordering Provider: COURTNEY FAROOQ Report Released Date/Time: Aug 22, 2024 10:17 AM Reporting Lab: [facility] [address] [facility] [address] Performing [facility]: [facility] [address] [facility] [address] FOLATE (WROX) 3.90 ng/mL L >5.2 Aug 22, 2024 10:26 AM [facility] RETICULOCYTES Specimen Type: BLOOD Comment: Smear reviewed, auto CBC w/Diff accepted. Ordering Provider: COURTNEY FAROOQ Report Released Date/Time: Aug 22, 2024 10:17 AM Reporting Lab: [facility] [address] [facility] [address] Performing Lab: [facility] [address] [facility] [address] RETIC % 2.6 H 0.6-2.0 RETIC, ABS 91.6 10*3/uL H 30.0-90.0 RET-HE % 29.6 27.9-42.0 Aug 22, 2024 10:26 AM [place] CBC AND DIFF (AUTO) Specimen Type: BLOOD Comment: Smear reviewed, auto CBC w/Diff accepted. Ordering Provider: COURTNEY FAROOQ Report Released Date/Time: Aug 22, 2024 10:17 AM Reporting Lab: [facility] [address] [facility] [address] Performing Lab: [facility] [address] [facility] [address] WBC 7.35 10*3/uL 4.50-11.00 RBC 3.51 10*6/uL [...] H 0.00-0.00 Aug 22, 2024 10:26 AM [facility] IRON & TIBC PANEL Specimen Type: SERUM No comment entered. Ordering Provider: COURTNEY FAROOQ Report Released Date/Time: Aug 22, 2024 10:17 AM Reporting Lab: [facility] [address] [facility] [address] Performing Lab: [facility] [address] [facility] [address] TIBC 210 ug/dL 204-475 IRON 43 ug/dL 40-160 Transferrin Saturation 20.5 20.0-50.0 Transferrin (TRF) 159 mg/dL L 200-360 Aug 22, 2024 10:26 AM [facility] FERRITIN Specimen Type: SERUM No comment entered. Ordering Provider: COURTNEY FAROOQ Report Released Date/Time: Aug 22, 2024 10:17 AM Reporting Lab: [address] [address] Performing Lab: [address] [address] FERRITIN 1130 ng/mL H 20-300 Aug 22, 2024 10:26 AM [facility] VITAMIN B12 Specimen Type: SERUM No comment entered. Ordering Provider: COURTNEY FAROOQ Report Released Date/Time: Aug 22, 2024 10:17 AM Reporting Lab: [address] [address] Performing Lab: [address] [address] VITAMIN B12 378 pg/mL 200-900 Aug 22, 2024 10:26 AM [facility] BASIC METABOLIC PANEL (non-fasting) Spe cimen Type: SERUM No comment entered. Ordering Provider: COURTNEY FAROOQ Report Released Date/Time: Aug 22, 2024 10:17 AM Reporting Lab: [address] [address] Performing Lab: [address] [address] UREA NITROGEN 12 mg/dL 7-25 GLUCOSE 104 mg/dL H 65-100 SODIUM 136 mmol/L 135-145 POTASSIUM 4.7 mmol/L 3.5-5.0 CHLORIDE 106 mmol/L 100-110 CO2 18 meq/L L 20-30 CREATININE, Serum 1.15 mg/dL 0.50-1.40 eGFR(CKD-EPI 2020) 65 mL/min >60 Aug 22, 2024 10:26 AM [facility] LIVER FUNCTION Specimen Type: SERUM No comment entered. Ordering Provider: COURTNEY FAROOQ Report Released Date/Time: Aug 22, 2024 10:17 AM Reporting Lab: [facility] [address] [facility] [address] Performing Lab: [facility] [address] [facility] [address] PROTEIN,TOTAL 6.0 g/dL 6.0-8.3 ALBUMIN 3.1 g/dL [...] 03, 2023 08:58 AM [place]-TOBACCO FORMER USER [facility] Tobacco Use History This section includes a history of the smoking, or tobacco-related health factors, that were collected on or before the date of the Encounter. The data comes from the [place] facility where the Encounter took place. Date/Time Smoking Status/Tobacco Use Comment F acility Jun 03, 2023 08:58 AM [place]-TOBACCO QUIT 15 YRS OR MORE [facility] Advance Directives: All historical and current [...] Jun 30, 2019 ADVANCE DIRECTIVE CASSIE POWELL [place] [facility] [place] [facility] Encounter Notes: All associated encounter notes This section contains the clinical notes associated to the Encounter. Date/Time Encounter Note(s) Provider Source Sep 20, 2024 09:03 AM PREVENTIVE MEDICIN E NURSING NOTE: LOCAL TITLE: CLINICAL REMINDERS/NURSING STANDARD TITLE: PREVENTIVE MEDICINE NURSING NOTE DATE OF NOTE: SEP 20, 2024@09:03 ENTRY DATE: SEP 20, 2024@09:03:07 AUTHOR: MAXIMILIANO KUMARI EXP MINHIGNER: URGENCY: STATUS: COMPLETED Pneumococcal Conjugate Vaccine (PCV15/PCV20): Virtual/Telehealth Visit - Patient educated on the need for receiving Pneumococcal conjugate vaccine either at [place] or outside facility. Influenza Immunization: Virtual/Telehealth Visit - Patient educated on the need for receiving influenza immunization either at [facility] or outside facility. COVID-19 Immunization: Virtual/Telehealth Visit - Patient educated on the need for receiving COVID-19 (SARS-CoV-2) immunization either at [facility] or outside facility. Tdap Immunization: Virtual/Telehealth Visit - Patient educated on the need for receiving Tdap immunization either at VA or outside facility. Herpes Zoster (Shingles) Vaccine: Virtual/Telehealth Visit - Patient educated on the need for receiving Herpes Zoster (Shingles) immunization either at [facility] or outside facility. Sexual Orientation: The patient thinks of their sexual orientation as: Straight or Heterosexual RHS Screen: RHS Screen Environmental Check Screening was not completed at this time due to: Another adult present /es/ MAXIMILIANO KUMARI LPN LPN Signed: 09/20/2024 09:03 MAXIMILIANO KUMARI Sep 20, 2024 08:58 AM TELEHEALTH NOTE: LOCAL TITLE: [facility] VIDEO CONNECT NOTE STANDARD TITLE: TELEHEALTH NOTE DATE OF NOTE: SEP 20, 2024@08:58 ENTRY DATE: SEP 20, 2024@08:58:42 AUTHOR: MAXIMILIANO KUMARI EXP MINHIGNER: URGENCY: STATUS: COMPLETED [facility] Connect (VVC) Standard Documentation VVC Clinician Resources Only: E911 (Emergency Call Relay Center): [phone] [facility] Crisis Line - 988 then press #1. CWM Suicide Coordinator [phone], Ext. [phone]; Back-up Ext. [phone] [facility] MAYURI Chavez [place] [phone] Introduction: Visit is being conducted by [place] [facility]. identified with 2 identifiers: [X] Full Name [X] Date of [ ] VA ID Card Emergency Plan: [place] confirmed and/or provided the following information in case of emergency or technology failure. PATIENT PHONE - PHONE NUMBER [CELLULAR] - Is patient phone number correct, if not, enter below: 's phone number: FATEMEH GOMEZ [address], [place], [address] 's present location and address for appointment: [address] [place] [address] 's emergency contact name and phone number: CAROL - SPOUSE reported that location is private and safe: Yes Informed Consent: informed of the risks and benefits of Telehealth video care. [place] has the right to refuse video services. If refuses video visit, a [id number] visit will be scheduled. [place] verbalized consent for this video visit: Yes [place] provided consent for any other persons present for visit: Yes If yes, who and relationship to patient:CAROL - SPOUSE Secure visit: Visit was locked for security and privacy:Yes /inge/ MAXIMILIANO KUMARI LPN LPN Signed: 09/20/2024 08:59 MAXIMILIANO KUMARI
--- OUTSIDE RECORDS SUMMARY | 2024-10-17 15:31 | XMS_ITS ---
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 [place]) Organization [facility] [place] Address [address] [place] [address] Care Team Providers Care Staff Climate Scientist Name Role Phone GURPREET PEREZ Primary Care [...] to Policy Harding [facility] PLAN [facility] (WNR) MEDICARE ADVANTAGE [facility] (WNR) Oct 25, 2011 [facility] [id number] FAT[address] GOMEZ PATIENT Selected Encounter This section includes the information on record at [place] for the Encounter. Date/Time Encounter Type Encounter Description Reason Pro vider Source Aug 21, 2024 12:00 PM Outpatient Encounter COMMUNITY [...] The data comes from all [place] treatment [facility]. Appointment Date/Time Appointment Type Appointme nt Facility Name Aug 22, 2024 09:30 AM AMBULATORY - MEDICINE [facility] Aug 29, 2024 08:00 AM AMBULATORY - MEDICINE [facility] Sep 20, 2024 09:00 AM AM[facility]ULATORY - MEDICINE [facility] Oct 03, 2024 11:30 AM AMBULATORY - MEDICINE [facility] Active, Pending, and Scheduled Orders This section includes a listing of several types of active, pending, and scheduled orders, including clinic medications orders, diagnostic test orders, procedure orders and consult orders; where the start date of the order is 45 days before the date of the Encounter or 45 days after the date of theEncounter. The data comes from all [facility]. Test Date/Time Test Type Test Details Facility Name Aug 28, 2024 04:23 PM Consult Order COMMUNITY CARE-[facility] NON-SKILLED HOME HEALTH AIDE Cons [facility] Sep 20, 2024 10:06 AM Consult Order NUTRITION ASSESSMENT/EDUCATION/SPO PC OUTPT Cons [facility] Lab Results: +/- 30 days of the encounter This section includes the Chemistry and Hematology Lab Results on record with [place] for the patient. Radiology Reports and Pathology Reports are provided separately, in subsequent sections. Lab Results This section contains the Chemistry/Hematology Results that were resulted 30 days before or 30 daysafter the date of the Encounter. Date/Time Source Result Type Result - Unit Interpretation Reference Range Comment Aug 22, 2024 10:26 AM [facility] FOLATE (WROX) Specimen Type: SERUM No comment entered. Ordering Provider: COURTNEY FAROOQ Report Released Date/Time: Aug 22, 2024 10:17 AM Reporting Lab: [facility] [address] [address] Performing Lab: [facility] [address] [facility] [address] FOLATE (WROX) 3.90 ng/mL L >5.2 Aug 22, 2024 10:26 AM [facility] CBC AND DIFF (AUTO) Specimen Type: BLOOD Comment: Smear reviewed, auto CBC w/Diff accepted. Ordering Provider: COURTNEY FAROOQ Report Released Date/Time: Aug 22, 2024 10:17 AM Reporting Lab: [facility] [address] [address] Performing Lab: [facility] [address] [address] WBC 7.35 10*3/uL 4.50-11.00 RBC 3.51 10*6/uL [...] H 0.00-0.00 Aug 22, 2024 10:26 AM [facility] RETICULOCYTES Specimen Type: BLOOD Comment: Smear reviewed, auto CBC w/Diff accepted. Ordering Provider: COURTNEY FRAOOQ Report Released Date/Time: Aug 22, 2024 10:17 AM Reporting Lab: [address] [address] Performing Lab: [address] [address] RETIC % 2.6 H 0.6-2.0 RETIC, ABS 91.6 10*3/uL H 30.0-90.0 RET-HE % 29.6 27.9-42.0 Aug 22, 2024 10:26 AM [facility] FERRITIN Specimen Type: SERUM No comment entered. Ordering Provider: COURTNEY FAROOQ Report Released Date/Time: Aug 22, 2024 10:17 AM Reporting Lab: [facility]USE[address] [address] Performing Lab: [facility] [address] FERRITIN 1130 ng/mL H 20-300 Aug 22, 2024 10:26 AM [facility] VITAMIN B12 Specimen Type: SERUM No comment entered. Ordering Provider: COURTNEY FAROOQ Report Released Date/Time: Aug 22, 2024 10:17 AM Reporting Lab: [address] [address] Performing Lab: [facility] [address] [address] VITAMIN B12 378 pg/mL 200-900 Aug 22, 2024 10:26 AM [facility] IRON & TIBC PANEL Specimen Type: SERUM No comment entered. Ordering Provider: COURTNEY FAROOQ Report Released Date/Time: Aug 22, 2024 10:17 AM Reporting Lab: [facility] [address] [address] Performing Lab: [facility] [address] [address] TIBC 210 ug/dL 204-475 IRON 43 ug/dL 40-160 Transferrin Saturation 20.5 20.0-50.0 Transferrin (TRF) 159 mg/dL L 200-360 Aug 22, 2024 10:26 AM [facility] BASIC METABOLIC PANEL (non-fasting) Spe cimen Type: SERUM No comment entered. Ordering Provider: COURTNEY FAROOQ Report Released Date/Time: Aug 22, 2024 10:17 AM Reporting Lab: [facility] [address] [address] Performing Lab: [facility] [address] [address] UREA NITROGEN 12 mg/dL 7-25 GLUCOSE 104 mg/dL H 65-100 SODIUM 136 mmol/L 135-145 POTASSIUM 4.7 mmol/L 3.5-5.0 CHLORIDE 106 mmol/L 100-110 CO2 18 meq/L L 20-30 CREATININE, Serum 1.15 mg/dL 0.50-1.40 eGFR(CKD-EPI 2020) 65 mL/min >60 Aug 22, 2024 10:26 AM [facility] LIVER FUNCTION Specimen Type: SERUM No comment entered. Ordering Provider: COURTNEY FAROOQ Report Released Date/Time: Aug 22, 2024 10:17 AM Reporting Lab: [address] [address] Performing Lab: [address] [address] PROTEIN,TOTAL 6.0 g/dL 6.0-8.3 ALBUMIN 3.1 g/dL L 3.5-5.0 ALKALINE PHOSPHATASE 138 U/L 40-150 AST 27 U/L 5-34 ALT 36 U/L BILIRUBIN, TOTAL 1.0 mg/dL 0.2-1.2 Aug 16, 2024 01:58 PM [facility] MICROALBUMIN CREATININE RATIO PANEL Specimen Type: URINE No comment entered. Ordering Provider: COURTNEY FAROOQ Report Released Date/Time: Aug 08, 2024 01:49 PM Reporting Lab: [address] [address] Performing Lab: [address] [address] MICROALBUMIN/CR EATININE RATIO 7.3 mg/g 0-29.9 MICROALBUMIN,QU ANTITATIVE 0.8 mg/dL RR UNAVAIL CREATININE URINE 109.38 mg/dL Aug 16, 2024 01:58 PM [facility] URINALYSIS Specimen Type: URINE Comment: If Glucose = >500 and Ketones are positive, please alert the Physician. Ordering Provider: COURTNEY FAROOQ Report Released Date/Time: Aug 08, 2024 01:49 PM Reporting Lab: [address] [place] [address] Performing Lab: [facility] [address] [address] UA COLOR Light-Yellow Yellow UA APPEARANCE Clear Clear UA GLUCOSE Normal mg/dL Negative UA KETONES NEGATIVE mg/dL Negative UA BLOOD NEGATIVE mg/dL Negative UA PROTEIN 10 mg/dL Negative UA NITRITE NEGATIVE mg/dL Negative UA BILIRUBIN NEGATIVE mg/dL Negative UA SPECIFIC GRAVITY 1.017 1.016-1.02 2 UA pH 6.0 5.0-9.0 UA UROBILINOGEN Normal mg/dL <2.0 UA LEUKOCYTE TRACE Negative Aug 16, 2024 01:58 PM [facility] MICROSCOPIC AUTOMATED, URINE Specimen Type: URINE Comment: If Glucose = >500 and Ketones are positive, please alert the Physician. Ordering Provider: COURTNEY FAROOQ Report Released Date/Time: Aug 08, 2024 01:49 PM Reporting Lab: [address] [address] Performing Lab: [address] [address] UA WBC 0-5 /[HPF] 0-5 UA BACTERIA 1+ /[HPF] NoneObs UA MUCUS FEW /[LPF] Trace UA HYALINE CASTS 2-4 /[LPF] 0-2 UA RBC 3-5 /[HPF] 0-3 Aug 15, 2024 10:14 AM [facility] BASIC METABOLIC PANEL (fasting) Specimen Type: SERUM No comment entered. Ordering Provider: COURTNEY FAROOQ Report Released Date/Time: Aug 08, 2024 01:49 PM Reporting Lab: [facility] [address] [address] Performing Lab: [address] [address] UREA NITROGEN 28 mg/dL H 7-25 GLUCOSE 98 mg/dL 65-100 SODIUM 133 mmol/L L 135-145 POTASSIUM 5.3 mmol/L H 3.5-5.0 CHLORIDE 106 mmol/L 100-110 CO2 15 meq/L L 20-30 CREATININE, Serum 1.31 mg/dL 0.50-1.40 eGFR(CKD-EPI 2020) 55 mL/min L >60 Aug 15, 2024 10:14 AM [facility] LIPID PANEL FASTING Specimen Type: SERUM No comment entered. Ordering Provider: COURNTEY FAROOQ Report Released Date/Time: Aug 08, 2024 01:49 PM Reporting Lab: [address] [address] Performing Lab: [address] [address] CHOLESTEROL 69 mg/dL TRIGLYCERIDE 88 mg/dL 0-150 LDL calculated 16 mg/dL 0-129 CHOL/HDL 2.0 HDL CHOLESTEROL 35 mg/dL L 40-60 Aug 15, 2024 10:14 AM [facility] LIVER FUNCTION Specimen Type: SERUM No comment entered. Ordering Provider: COURTNEY FAROOQ Report Released Date/Time: Aug 08, 2024 01:49 PM Reporting Lab: [address] [address] Performing Lab: [address] [address] PROTEIN,TOTAL 6.2 g/dL 6.0-8.3 ALBUMIN 3.2 g/dL L 3.5-5.0 ALKALINE PHOSPHATASE 103 U/L 40-150 AST 17 U/L 5-34 ALT 25 U/L BILIRUBIN, TOTAL 0.9 mg/dL 0.2-1.2 Aug 15, 2024 10:14 AM [facility] HEMOGLOBIN A1C PANEL Specimen Type: BLOOD [...] Aug 08, 2024 01:49 PM Reporting Lab: [address] [address] Performing Lab: [facility] [address] [address] HEMOGLOBIN A1C 6.7 H 4.0-5.6 Aug 15, 2024 10:14 AM [facility] TSH Specimen Type: SERUM No comment entered. Ordering Provider: COURTNEY FAROOQ Report Released Date/Time: Aug 08, 2024 01:49 PM Reporting Lab: [facility] [address] [address] Performing Lab: [facility] [address] [address] TSH 1.84 u[IU]/mL 0.35-5.00 Aug 15, 2024 10:14 AM [facility] CALCIUM Specimen Type: SERUM No comment entered. Ordering Provider: COURTNEY FAROOQ Report Released Date/Time: Aug 08, 2024 01:49 PM Reporting Lab: [facility] [address] [address] Performing Lab: [facility]ITALUSETS [facility] [address] [address] CALCIUM 8.5 mg/dL 8.5-10.2 Aug 15, 2024 10:14 AM [facility] CBC AND DIFF (AUTO) Specimen Type: BLOOD No comment entered. Ordering Provider: COURTNEY FAROOQ Report Released Date/Time: Aug 08, 2024 01:49 PM Reporting Lab: [facility] [address] [address] Performing Lab: [facility] [address] [address] WBC 7.54 10*3/uL 4.50-11.00 RBC 3.63 10*6/uL [...] 10*3/uL 0.00-0.00 Aug 15, 2024 10:14 AM [facility] URIC ACID Specimen Type: SERUM No comment entered. Ordering Provider: COURTNEY FAROOQ Report Released Date/Time: Aug 08, 2024 01:49 PM Reporting Lab: [facility] [address] [address] Performing Lab: [address] [address] URIC ACID 7.9 mg/dL H 3.5-7.2 Aug 15, 2024 10:14 AM [facility] VITAMIN D (25-OH) Specimen Type: SERUM No comment entered. Ordering Provider: COURTNEY FAROOQ Report Released Date/Time: Aug 08, 2024 01:49 PM Reporting Lab: [facility] [address] [address] Performing Lab: [address] [address] VITAMIN D (25-OH) <13 ng/mL L 20-50 [...] AM [place]-TOBACCO QUIT 15 YRS OR MORE [facility] [...] Encounter. Date/Time Encounter Note(s) Provider Source Aug 21, 2024 12:00 PM NONVA CONSULT: LOCAL TITLE: COMMUNITY CARE-CONSULT RESULT NOTE STANDARD TITLE: NONVA CONSULT DATE OF NOTE: AUG 21, 2024@12:00 ENTRY DATE: SEP 15, 2024@14:25:55 AUTHOR: LIBAN TRIMBLE EXP COSIGNER: URGENCY: STATUS: COMPLETED VistA Imaging - Scanned Document SCANNED DOCUMENT SIGNATURE NOT REQUIRED Electronically Filed: 09/15/2024 by: LIBAN TRIMBLE [employer] QUALITY MANAGER LIBAN TRIMBLE [facility]
--- OUTSIDE RECORDS SUMMARY | 2024-10-17 15:31 | XMS_ITS | Encounter Summary ---
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 Affairs [place] Organization [place] Address [address] [place] [address] Care Team Providers Care Truck Manager Name Role Phone GURPREET PEREZ Primary [...] Harding's Name Patient's Relationship to Policy Harding [facility] PLAN [facility] (WNR) MEDICARE ADVANTAGE [facility] (WNR) Oct 25, 2011 [facility] [id number] FATEMEH GOMEZ PATIENT Selected Encounter This section includes the information on record at [place] for the Encounter. Date/Time Encounter Type Encounter Description Reason Pro vider Source Jul 24, 2024 12:00 PM Outpatient Encounter COMMUNITY [...] 05, 2024 08:00 AM AMBULATORY - MEDICINE [facility] Aug 22, 2024 09:30 AM AMBULATORY - MEDICINE [facility] Aug 29, 2024 08:00 AM [facility] Sep 20, 2024 09:00 AM AMBULATORY - MEDICINE [facility] Oct 03, 2024 11:30 AM AMBULATORY MEDICINE [facility] Active, Pending, and Scheduled Orders This section includes a listing of several types of active, pending, and scheduled orders, including clinic medications orders, diagnostic test orders, procedure orders and consult orders; where the start date of the order is 45 days before the date of the Encounter or 45 days after the date of theEncounter. The data comes from all [facility]. Test Date/Time Test Type Test Details Facility Name Aug 28, 2024 04:23 PM Consult Order [facility] NON-SKILLED HOME HEALTH AIDE Cons [facility] Lab Results: +/- 30 days of the encounter This section includes the Chemistry and Hematology Lab Results on record with [place] for the patient. Radiology Reports and Pathology Reports are provided separately, in subsequent sections. Lab Results This section contains the Chemistry/Hematology Results that were resulted 30 days before or 30 daysafter the date of the Encounter. Date/Time Source Result Type Result - Unit Interpretation Reference Range Comment Aug 22, 2024 10:26 AM [facility] FOLATE (OX) Specimen Type: SERUM No comment entered. Ordering Provider: COURTNEY FAROOQ Report Released Date/Time: Aug 22, 2024 10:17 AM Reporting Lab: [facility] [address] [facility] [address] Performing Lab: [facility] [address] [facility] [address] FOLATE (WROX) 3.90 ng/mL L >5.2 Aug 22, 2024 10:26 AM [facility] RETICULOCYTES Specimen Type: BLOOD Comment: Smear reviewed, auto CBC w/Diff accepted. Ordering Provider: COURTNEY FAROOQ Report Released Date/Time: Aug 22, 2024 10:17 AM Reporting Lab: [address] [address] Performing Lab: [address] [address] RETIC % 2.6 H 0.6-2.0 RETIC, ABS 91.6 10*3/uL H 30.0-90.0 RET-HE % 29.6 27.9-42.0 Aug 22, 2024 10:26 AM [facility] IRON & TIBC PANEL Specimen Type: SERUM No comment entered. Ordering Provider: COURTNEY FAROOQ Report Released Date/Time: Aug 22, 2024 10:17 AM Reporting Lab: [address] [address] Performing Lab: [address] [address] TIBC 210 ug/dL 204-475 IRON 43 ug/dL 40-160 Transferrin Saturation 20.5 20.0-50.0 Transferrin (TRF) 159 mg/dL L 200-360 Aug 22, 2024 10:26 AM [facility] CBC AND DIFF (AUTO) Specimen Type: BLOOD Comment: Smear reviewed, auto CBC w/Diff accepted. Ordering Provider: COURTNEY FAROOQ Report Released Date/Time: Aug 22, 2024 10:17 AM Reporting Lab: [address] [address] Performing Lab: [address] [address] WBC 7.35 10*3/uL 4.50-11.00 RBC 3.51 10*6/uL [...] H 0.00-0.00 Aug 22, 2024 10:26 AM [facility] FERRITIN Specimen Type: SERUM No comment entered. Ordering Provider: COURTNEY FAROOQ Report Released Date/Time: Aug 22, 2024 10:17 AM Reporting Lab: [address] [address] Performing Lab: [address] [address] FERRITIN 1130 ng/mL H 20-300 Aug 22, 2024 10:26 AM [facility] VITAMIN B12 Specimen Type: SERUM No comment entered. Ordering Provider: COURTNEY FAROOQ Report Released Date/Time: Aug 22, 2024 10:17 AM Reporting Lab: [address] [address] Performing Lab: [address] [address] VITAMIN B12 378 pg/mL 200-900 Aug 22, 2024 10:26 AM [facility] BASIC METABOLIC PANEL (non-fasting) Spe cimen Type: SERUM No comment entered. Ordering Provider: COURTNEY FAROOQ Report Released Date/Time: Aug 22, 2024 10:17 AM Reporting Lab: [address] [address] Performing Lab: [address] [place] [address] UREA NITROGEN 12 mg/dL 7-25 GLUCOSE 104 mg/dL H 65-100 SODIUM 136 mmol/L 135-145 POTASSIUM 4.7 mmol/L 3.5-5.0 CHLORIDE 106 mmol/L 100-110 CO2 18 meq/L L 20-30 CREATININE, Serum 1.15 mg/dL 0.50-1.40 eGFR(CKD-EPI 2020) 65 mL/min >60 Aug 22, 2024 10:26 AM [facility] LIVER FUNCTION Specimen Type: SERUM No comment entered. Ordering Provider: COURTNEY FAROOQ Report Released Date/Time: Aug 22, 2024 10:17 AM Reporting Lab: [address] [address] Performing Lab: [address] [address] PROTEIN,TOTAL 6.0 g/dL 6.0-8.3 ALBUMIN 3.1 g/dL [...] 08, 2024 01:49 PM Reporting Lab: [address] [address] Performing Lab: [address] [address] UA COLOR Light-Yellow Yellow UA APPEARANCE Clear [...] 01:49 PM Reporting Lab: [facility] [address] [facility] [address] Performing Lab: [address] [address] MICROALBUMIN/CR EATININE RATIO 7.3 mg/g 0-29.9 MICROALBUMIN,QU ANTITATIVE 0.8 mg/dL RR UNAVAIL CREATININE URINE 109.38 mg/dL Aug 16, 2024 01:58 PM [facility] MICROSCOPIC AUTOMATED, URINE Specimen Type: URINE Comment: If Glucose = >500 and Ketones are positive, please alert the Physician. Ordering Provider: COURTNEY FAROOQ Report Released Date/Time: Aug 08, 2024 01:49 PM Reporting Lab: [address] [address] Performing Lab: [address] [address] UA WBC 0-5 /[HPF] 0-5 UA BACTERIA 1+ /[HPF] NoneObs UA MUCUS FEW /[LPF] Trace UA HYALINE CASTS 2-4 /[LPF] 0-2 UA RBC 3-5 /[HPF] 0-3 Aug 15, 2024 10:14 AM [facility] BASIC METABOLIC PANEL (fasting) Specimen Type: SERUM No comment entered. Ordering Provider: COURTNEY FAROOQ Report Released Date/Time: Aug 08, 2024 01:49 PM Reporting Lab: [address] [address] Performing Lab: [address] [address] UREA NITROGEN 28 mg/dL H 7-25 GLUCOSE [...] 08, 2024 01:49 PM Reporting Lab: [address] [address] Performing Lab: [address] [address] CHOLESTEROL 69 mg/dL TRIGLYCERIDE 88 mg/dL 0-150 LDL calculated 16 mg/dL 0-129 CHOL/HDL 2.0 HDL CHOLESTEROL 35 mg/dL L 40-60 Aug 15, 2024 10:14 AM [facility] LIVER FUNCTION Specimen Type: SERUM No comment entered. Ordering Provider: COURTNEY FAROOQ Report Released Date/Time: Aug 08, 2024 01:49 PM Reporting Lab: [address] [address] Performing Lab: [address] [address] PROTEIN,TOTAL 6.2 g/dL 6.0-8.3 ALBUMIN 3.2 g/dL [...] 08, 2024 01:49 PM Reporting Lab: [address] [address] Performing Lab: [facility] [address] [facility] [address] HEMOGLOBIN A1C 6.7 H 4.0-5.6 Aug 15, 2024 10:14 AM [facility] CBC AND DIFF (AUTO) Specimen Type: BLOOD No comment entered. Ordering Provider: COURTNEY FAROOQ Report Released Date/Time: Aug 08, 2024 01:49 PM Reporting Lab: [facility] [address] [facility] [address] Performing Lab: [facility] [address] [facility] [address] WBC 7.54 10*3/uL 4.50-11.00 RBC 3.63 10*6/uL [...] Aug 15, 2024 10:14 AM [facility] TSH Specimen Type: SERUM No comment entered. Ordering Provider: COURTNEY FAROOQ Report Released Date/Time: Aug 08, 2024 01:49 PM Reporting Lab: [facility] [address] [facility] [address] Performing Lab: [facility] [address] [facility] [address] TSH 1.84 u[IU]/mL 0.35-5.00 Aug 15, 2024 10:14 AM [facility] CALCIUM Specimen Type: SERUM No comment entered. Ordering Provider: COURTNEY FAROOQ Report Released Date/Time: Aug 08, 2024 01:49 PM Reporting Lab: [facility] [address] [facility] [address] Performing Lab: [address] [address] CALCIUM 8.5 mg/dL 8.5-10.2 Aug 15, 2024 10:14 AM [facility] URIC ACID Specimen Type: SERUM No comment entered. Ordering Provider: COURTNEY FAROOQ Report Released Date/Time: Aug 08, 2024 01:49 PM Reporting Lab: [facility] [address] [facility] [address] Performing Lab: [address] [address] URIC ACID 7.9 mg/dL H 3.5-7.2 Aug 15, 2024 10:14 AM [facility] VITAMIN D (25-OH) Specimen Type: SERUM No comment entered. Ordering Provider: COURTNEY FAROOQ Report Released Date/Time: Aug 08, 2024 01:49 PM Reporting Lab: [facility] [address] [facility] [address] Performing Lab: [address] [address] VITAMIN D (25-OH) <13 ng/mL L 20-50 [...] AM [place]-TOBACCO QUIT 15 YRS OR MORE [facility] [...] Encounter. Date/Time Encounter Note(s) Provider Source Jul 24, 2024 12:00 PM NONVA CONSULT: LOCAL TITLE: COMMUNITY CARE-CONSULT RESULT NOTE STANDARD TITLE: NONVA CONSULT DATE OF NOTE: JUL 24, 2024@12:00 ENTRY DATE: SEP 06, 2024@12:52:45 AUTHOR: LIBAN TRIMBLE EXP COSIGNER: URGENCY: STATUS: COMPLETED VistA Imaging - Scanned Document SCANNED DOCUMENT SIGNATURE NOT REQUIRED Electronically Filed: 09/06/2024 by: LIBAN TRIMBLE MEDICAL INSURANCE CLAIMS ASSISTANT LIBAN TRIMBLE [facility] Jul 24, 2024 12:00 PM NONVA CONSULT: LOCAL TITLE: COMMUNITY CARE-CONSULT RESULT NOTE STANDARD TITLE: NONVA CONSULT DATE OF NOTE: JUL 24, 2024@12:00 ENTRY DATE: SEP 06, 2024@13:01:50 AUTHOR: LIBAN TRIMBLE EXP COSIGNER: URGENCY: STATUS: COMPLETED VistA Imaging - Scanned Document SCANNED DOCUMENT SIGNATURE NOT REQUIRED Electronically Filed: 09/06/2024 by: LIBAN TRIMBLE MEDICAL INSURANCE CLAIMS ASSISTANT LIBAN TRIMBLE [facility]
--- OUTSIDE RECORDS SUMMARY | 2024-10-17 15:31 | XMS_ITS ---
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 [place] [facility] [facility] [place] Address [address] [place] [address] Care Team Providers Care Package Wrapper Name Role Phone GURPREET PEREZ Primary Care [...] [facility] (WNR) MEDICARE ADVANTAGE [facility] (WNR) Oct 25, 2011 [facility] [id number] PATIENT Selected Encounter This section includes the information on record at [place] for the Encounter. Date/Time Encounter Type Encounter Description Reason Pro vider Source Aug 24, 2024 07:32 AM Outpatient Encounter TELEPHONE/REHAB AND SUPPORT IHE Encounter Template Text not used by [place] Plan of Treatment: Future Appointments (+ 6 [...] 29, 2024 08:00 AM AMBULATORY - MEDICINE [facility] Sep 20, 2024 09:00 AM [facility] Oct 03, 2024 11:30 AM AMBULATORY - MEDICINE [facility] Active, Pending, [...] of theEncounter. The data comes from all [facility] facilities. Test Date/Time Test Type Test Details Facility Name Aug 28, 2024 04:23 PM Consult Order [facility] NON-SKILLED HOME HEALTH AIDE [facility] Sep 20, 2024 10:06 AM Consult Order NUTRITION ASSESSMENT/EDUCATION/SPO PC OUTPT [facility] [employer] [facility] Lab Results: +/- 30 days of the encounter This section includes the Chemistry and Hematology Lab Results on record with [place] for the patient. Radiology Reports and Pathology Reports are provided separately, in subsequent sections. Lab Results This section contains the Chemistry/Hematology Results that were resulted 30 days before or 30 daysafter the date of the Encounter. Date/Time Source Result Type Result - Unit Interpretation Reference Range Comment Aug 22, 2024 10:26 AM [facility] FOLATE (WROX) Specimen Type: SERUM No comment entered. Ordering Provider: COURTNEY FAROOQ Report Released Date/Time: Aug 22, 2024 10:17 AM Reporting Lab: [facility] [address] [address] Performing Lab: [facility] [address] [address] FOLATE (WROX) 3.90 ng/mL L >5.2 Aug 22, 2024 10:26 AM [facility] CBC AND DIFF (AUTO) Specimen Type: BLOOD Comment: Smear reviewed, auto CBC w/Diff accepted. Ordering Provider: COURTNEY FAROOQ Report Released Date/Time: Aug 22, 2024 10:17 AM Reporting Lab: [facility] [address] [address] Performing Lab: [address] [address] WBC 7.35 10*3/uL 4.50-11.00 RBC 3.51 10*6/uL [...] H 0.00-0.00 Aug 22, 2024 10:26 AM [facility] RETICULOCYTES Specimen Type: BLOOD Comment: Smear reviewed, auto CBC w/Diff accepted. Ordering Provider: COURTNEY FAROOQ Report Released Date/Time: Aug 22, 2024 10:17 AM Reporting Lab: [address] [address] Performing Lab: [address] [address] RETIC % 2.6 H 0.6-2.0 RETIC, ABS 91.6 10*3/uL H 30.0-90.0 RET-HE % 29.6 27.9-42.0 Aug 22, 2024 10:26 AM [facility] FERRITIN Specimen Type: SERUM No comment entered. Ordering Provider: COURTNEY FAROOQ Report Released Date/Time: Aug 22, 2024 10:17 AM Reporting Lab: [facility] [address] [address] Performing Lab: [facility] [address] FERRITIN 1130 ng/mL H 20-300 Aug 22, 2024 10:26 AM [facility] VITAMIN B12 Specimen Type: SERUM No comment entered. Ordering Provider: COURTNEY FAROOQ Report Released Date/Time: Aug 22, 2024 10:17 AM Reporting Lab: [facility] [address] [address] Performing Lab: [facility] [address] [address] VITAMIN B12 378 pg/mL 200-900 Aug 22, 2024 10:26 AM [facility] IRON & TIBC PANEL Specimen Type: SERUM No comment entered. Ordering Provider: COURTNEY FAROOQ Report Released Date/Time: Aug 22, 2024 10:17 AM Reporting Lab: [facility] [address] [address] Performing Lab: [facility] [address] [address] TIBC 210 ug/dL 204-475 IRON 43 ug/dL 40-160 Transferrin Saturation 20.5 20.0-50.0 Transferrin (TRF) 159 mg/dL L 200-360 Aug 22, 2024 10:26 AM [facility] BASIC METABOLIC PANEL (non-fasting) Spe cimen Type: SERUM No comment entered. Ordering Provider: COURTNEY FAROOQ Report Released Date/Time: Aug 22, 2024 10:17 AM Reporting Lab: [facility] [address] [address] Performing Lab: [facility] [address] [address] UREA NITROGEN 12 mg/dL 7-25 GLUCOSE 104 mg/dL H 65-100 SODIUM 136 mmol/L 135-145 POTASSIUM 4.7 mmol/L 3.5-5.0 CHLORIDE 106 mmol/L 100-110 CO2 18 meq/L L 20-30 CREATININE, Serum 1.15 mg/dL 0.50-1.40 eGFR(CKD-EPI 2020) 65 mL/min >60 Aug 22, 2024 10:26 AM [facility] LIVER FUNCTION Specimen Type: SERUM No comment entered. Ordering Provider: COURTNEY FAROOQ Report Released Date/Time: Aug 22, 2024 10:17 AM Reporting Lab: [address] [address] Performing Lab: [address] [address] PROTEIN,TOTAL 6.0 g/dL 6.0-8.3 ALBUMIN 3.1 g/dL L 3.5-5.0 ALKALINE PHOSPHATASE 138 U/L 40-150 AST 27 U/L 5-34 ALT 36 U/L BILIRUBIN, TOTAL 1.0 mg/dL 0.2-1.2 Aug 16, 2024 01:58 PM [facility] MICROALBUMIN CREATININE RATIO PANEL Specimen Type: URINE No comment entered. Ordering Provider: COURTNEY FAROOQ Report Released Date/Time: Aug 08, 2024 01:49 PM Reporting Lab: [address] [address] Performing Lab: [address] [address] MICROALBUMIN/CR EATININE RATIO 7.3 mg/g 0-29.9 MICROALBUMIN,QU ANTITATIVE 0.8 mg/dL RR UNAVAIL CREATININE URINE 109.38 mg/dL Aug 16, 2024 01:58 PM [facility] URINALYSIS Specimen Type: URINE Comment: If Glucose = >500 and Ketones are positive, please alert the Physician. Ordering Provider: COURTNEY FAROOQ Report Released Date/Time: Aug 08, 2024 01:49 PM Reporting Lab: [address] [address] Performing Lab: [facility] [address] [address] UA COLOR Light-Yellow Yellow UA APPEARANCE Clear Clear UA GLUCOSE Normal mg/dL Negative UA KETONES NEGATIVE mg/dL Negative UA BLOOD NEGATIVE mg/dL Negative UA PROTEIN 10 mg/dL Negative UA NITRITE NEGATIVE mg/dL Negative UA BILIRUBIN NEGATIVE mg/dL Negative UA SPECIFIC GRAVITY 1.017 1.016-1.02 2 UA pH 6.0 5.0-9.0 UA UROBILINOGEN Normal mg/dL <2.0 UA LEUKOCYTE TRACE Negative Aug 16, 2024 01:58 PM [facility] MICROSCOPIC AUTOMATED, URINE Specimen Type: URINE Comment: If Glucose = >500 and Ketones are positive, please alert the Physician. Ordering Provider: COURTNEY FAROOQ Report Released Date/Time: Aug 08, 2024 01:49 PM Reporting Lab: [address] [address] Performing Lab: [facility] [address] [address] UA WBC 0-5 /[HPF] 0-5 UA BACTERIA 1+ /[HPF] NoneObs UA MUCUS FEW /[LPF] Trace UA HYALINE CASTS 2-4 /[LPF] 0-2 UA RBC 3-5 /[HPF] 0-3 Aug 15, 2024 10:14 AM [facility] BASIC METABOLIC PANEL (fasting) Specimen Type: SERUM No comment entered. Ordering Provider: COURTNEY FAROOQ Report Released Date/Time: Aug 08, 2024 01:49 PM Reporting Lab: [facility] [address] [address] Performing Lab: [address] [address] UREA NITROGEN 28 mg/dL H 7-25 GLUCOSE 98 mg/dL 65-100 SODIUM 133 mmol/L L 135-145 POTASSIUM 5.3 mmol/L H 3.5-5.0 CHLORIDE 106 mmol/L 100-110 CO2 15 meq/L L 20-30 CREATININE, Serum 1.31 mg/dL 0.50-1.40 eGFR(CKD-EPI 2020) 55 mL/min L >60 Aug 15, 2024 10:14 AM [facility] LIPID PANEL FASTING Specimen Type: SERUM No comment entered. Ordering Provider: COURTNEY FAROOQ Report Released Date/Time: Aug 08, 2024 01:49 PM Reporting Lab: [facility] [address] [address] Performing Lab: [address] [address] CHOLESTEROL 69 mg/dL TRIGLYCERIDE 88 mg/dL 0-150 LDL calculated 16 mg/dL 0-129 CHOL/HDL 2.0 HDL CHOLESTEROL 35 mg/dL L 40-60 Aug 15, 2024 10:14 AM [facility] LIVER FUNCTION Specimen Type: SERUM No comment entered. Ordering Provider: COURTNEY FAROOQ Report Released Date/Time: Aug 08, 2024 01:49 PM Reporting Lab: [facility] [address] [address] Performing Lab: [facility] [address] [address] PROTEIN,TOTAL 6.2 g/dL 6.0-8.3 ALBUMIN 3.2 g/dL L 3.5-5.0 ALKALINE PHOSPHATASE 103 U/L 40-150 AST 17 U/L 5-34 ALT 25 U/L BILIRUBIN, TOTAL 0.9 mg/dL 0.2-1.2 Aug 15, 2024 10:14 AM [facility] HEMOGLOBIN A1C PANEL Specimen Type: [...] Aug 08, 2024 01:49 PM Reporting Lab: [facility] [address] [address] Performing Lab: [address] [place] [address] HEMOGLOBIN A1C 6.7 H 4.0-5.6 Aug 15, 2024 10:14 AM [facility] TSH Specimen Type: SERUM No comment entered. Ordering Provider: COURTNEY FAROOQ Report Released Date/Time: Aug 08, 2024 01:49 PM Reporting Lab: [address] [address] Performing Lab: [facility] [address] [address] TSH 1.84 u[IU]/mL 0.35-5.00 Aug 15, 2024 10:14 AM [facility] CALCIUM Specimen Type: SERUM No comment entered. Ordering Provider: COURTNEY FAROOQ Report Released Date/Time: Aug 08, 2024 01:49 PM Reporting Lab: [address] [address] Performing Lab: [address] [address] CALCIUM 8.5 mg/dL 8.5-10.2 Aug 15, 2024 10:14 AM [facility] CBC AND DIFF (AUTO) Specimen Type: BLOOD No comment entered. Ordering Provider: COURTNEY FAROOQ Report Released Date/Time: Aug 08, 2024 01:49 PM Reporting Lab: [address] [address] Performing Lab: [address] [address] WBC 7.54 10*3/uL 4.50-11.00 RBC 3.63 10*6/uL [...] 10*3/uL 0.00-0.00 Aug 15, 2024 10:14 AM [facility] URIC ACID Specimen Type: SERUM No comment entered. Ordering Provider: COURTNEY FAROOQ Report Released Date/Time: Aug 08, 2024 01:49 PM Reporting Lab: [address] [address] Performing Lab: [address] [address] URIC ACID 7.9 mg/dL H 3.5-7.2 Aug 15, 2024 10:14 AM [facility] VITAMIN D (25-OH) Specimen Type: SERUM No comment entered. Ordering Provider: COURTNEY FAROOQ Report Released Date/Time: Aug 08, 2024 01:49 PM Reporting Lab: [address] [address] Performing Lab: [address] [address] VITAMIN D (25-OH) <13 ng/mL L 20-50 [...] AM [place]-TOBACCO QUIT 15 YRS OR MORE [facility] [...] Encounter. Date/Time Encounter Note(s) Provider Source Aug 24, 2024 07:32 AM ADMINISTRATIVE NOT E: LOCAL TITLE: ADMINISTRATIVE NOTE STANDARD TITLE: ADMINISTRATIVE NOTE DATE OF NOTE: AUG 24, 2024@07:32 ENTRY DATE: AUG 24, 2024@07:32:18 AUTHOR: PRITI GONZALES EXP COSIGNER: URGENCY: STATUS: COMPLETED call placed to discuss HISA justina, no one available. contact number provided for return call /es/ PRITI GONZALES OTR/L OCCUPATIONAL THERAPIST Signed: 08/24/2024 07:34 PRITI GONZALES [facility]
--- OUTSIDE RECORDS SUMMARY | 2024-10-17 15:31 | XMS_ITS ---
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 [place] [facility] [place] Organization [facility] [place] Address [address] [place] [address] Care Team Providers Care Therapeutic Strategy Lead Name Role Phone GURPREET PEREZ Primary Care [...] Relationship to Policy Harding [facility] (WNR) MEDICARE ADVANTAGE [facility] (WNR) Oct 25, 2011 [facility] [id number]EMZ PATIENT Selected Encounter This section includes the information on record at [place] for the Encounter. Date/Time Encounter Type Encounter Description Reason Provider Source Aug 28, 2024 11:00 AM Outpatient Encounter TELEPHONE/GERIATRIC S SOHAM DEAN Encounter Template Text not used by [place] Plan of Treatment: Future Appointments (+ 6 [...] 29, 2024 08:00 AM AMBULATORY - MEDICINE [facility] Sep 20, 2024 09:00 AM [facility] Oct 03, 2024 11:30 AM [facility] - MEDICINE [facility] Active, Pending, and Scheduled Orders This section includes a listing of several types of active, pending, and scheduled orders, including clinic medications orders, diagnostic test orders, procedure orders and consult orders; where the start date of the order is 45 days before the date of the Encounter or 45 days after the date of theEncounter. The data comes from all [facility] facilities. Test Date/Time Test Type Test Details Facility Name Aug 28, 2024 04:23 PM Consult Order [facility] NON-SKILLED HOME HEALTH AIDE [facility] Receiving Dock Checker's Choice [facility] Sep 20, 2024 10:06 AM Consult Order NUTRITION ASSESSMENT/EDUCATION/SPO PC OUTPT [facility] Receiving Dock Checker's [facility] Lab Results: +/- 30 days of the encounter This section includes the Chemistry and Hematology Lab Results on record with [place] for the patient. Radiology Reports and Pathology Reports are provided separately, in subsequent sections. Lab Results This section contains the Chemistry/Hematology Results that were resulted 30 days before or 30 daysafter the date of the Encounter. Date/Time Source Result Type Result - Unit Interpretation Reference Range Comment Aug 22, 2024 10:26 AM [facility] FOLATE (OX) Specimen Type: SERUM No comment entered. Ordering Provider: COURTNEY FAROOQ Report Released Date/Time: Aug 22, 2024 10:17 AM Reporting Lab: [facility] [address] [facility] [address] Performing Lab: [facility] [address] [facility] [address] FOLATE (WROX) 3.90 ng/mL L >5.2 Aug 22, 2024 10:26 AM [facility] RETICULOCYTES Specimen Type: BLOOD Comment: Smear reviewed, auto CBC w/Diff accepted. Ordering Provider: COURTNEY FAROOQ Report Released Date/Time: Aug 22, 2024 10:17 AM Reporting Lab: [address] [address] Performing Lab: [address] [address] RETIC % 2.6 H 0.6-2.0 RETIC, ABS 91.6 10*3/uL H 30.0-90.0 RET-HE % 29.6 27.9-42.0 Aug 22, 2024 10:26 AM [facility] CBC AND DIFF (AUTO) Specimen Type: BLOOD Comment: Smear reviewed, auto CBC w/Diff accepted. Ordering Provider: COURTNEY FAROOQ Report Released Date/Time: Aug 22, 2024 10:17 AM Reporting Lab: [address] [address] Performing Lab: [address] [address] WBC 7.35 10*3/uL 4.50-11.00 RBC 3.51 10*6/uL [...] H 0.00-0.00 Aug 22, 2024 10:26 AM [facility] IRON & TIBC PANEL Specimen Type: SERUM No comment entered. Ordering Provider: COURTNEY FAROOQ Report Released Date/Time: Aug 22, 2024 10:17 AM Reporting Lab: [facility] [place] [facility] [address] [facility] [address] Performing Lab: [facility] [address] [facility] [address] TIBC 210 ug/dL 204-475 IRON 43 ug/dL 40-160 Transferrin Saturation 20.5 20.0-50.0 Transferrin (TRF) 159 mg/dL L 200-360 Aug 22, 2024 10:26 AM [facility] FERRITIN Specimen Type: SERUM No comment entered. Ordering Provider: COURTNEY FAROOQ Report Released Date/Time: Aug 22, 2024 10:17 AM Reporting Lab: [facility] [address] [facility] [address] Performing Lab: [facility] [address] [facility] [address] FERRITIN 1130 ng/mL H 20-300 Aug 22, 2024 10:26 AM [facility] VITAMIN B12 Specimen Type: SERUM No comment entered. Ordering Provider: COURTNEY FAROOQ Report Released Date/Time: Aug 22, 2024 10:17 AM Reporting Lab: [facility] [address] [facility] [address] Performing Lab: [facility] [address] [facility] [address] VITAMIN B12 378 pg/mL 200-900 Aug 22, 2024 10:26 AM [facility] BASIC METABOLIC PANEL (non-fasting) Spe cimen Type: SERUM No comment entered. Ordering Provider: COURTNEY FAROOQ Report Released Date/Time: Aug 22, 2024 10:17 AM Reporting Lab: [facility] [address] [facility] [address] Performing Lab: [facility] [address] UREA NITROGEN 12 mg/dL 7-25 GLUCOSE 104 mg/dL H 65-100 SODIUM 136 mmol/L 135-145 POTASSIUM 4.7 mmol/L 3.5-5.0 CHLORIDE 106 mmol/L 100-110 CO2 18 meq/L L 20-30 CREATININE, Serum 1.15 mg/dL 0.50-1.40 eGFR(CKD-EPI 2020) 65 mL/min >60 Aug 22, 2024 10:26 AM [facility] LIVER FUNCTION Specimen Type: SERUM No comment entered. Ordering Provider: COURTNEY FAROOQ Report Released Date/Time: Aug 22, 2024 10:17 AM Reporting Lab: [address] [address] Performing Lab: [place] [address] PROTEIN,TOTAL 6.0 g/dL 6.0-8.3 ALBUMIN 3.1 g/dL L 3.5-5.0 ALKALINE PHOSPHATASE 138 U/L 40-150 AST 27 U/L 5-34 ALT 36 U/L BILIRUBIN, TOTAL 1.0 mg/dL 0.2-1.2 Aug 16, 2024 01:58 PM [facility] MICROALBUMIN CREATININE RATIO PANEL Specimen Type: URINE No comment entered. Ordering Provider: COURTNEY FAROOQ Report Released Date/Time: Aug 08, 2024 01:49 PM Reporting Lab: [address] [address] Performing Lab: [address] [address] MICROALBUMIN/CR EATININE RATIO 7.3 mg/g 0-29.9 MICROALBUMIN,QU ANTITATIVE 0.8 mg/dL RR UNAVAIL CREATININE URINE 109.38 mg/dL Aug 16, 2024 01:58 PM [facility] URINALYSIS Specimen Type: URINE Comment: If Glucose = >500 and Ketones are positive, please alert the Physician. Ordering Provider: COURTNEY FAROOQ Report Released Date/Time: Aug 08, 2024 01:49 PM Reporting Lab: [place] [phone] Performing Lab: [facility] [address] [facility] [address] UA COLOR Light-Yellow Yellow UA APPEARANCE Clear [...] Aug 08, 2024 01:49 PM Reporting Lab: [address] [address] Performing Lab: [address] [address] UA WBC 0-5 /[HPF] 0-5 UA BACTERIA 1+ /[HPF] NoneObs UA MUCUS FEW /[LPF] Trace UA HYALINE CASTS 2-4 /[LPF] 0-2 UA RBC 3-5 /[HPF] 0-3 Aug 15, 2024 10:14 AM [facility] BASIC METABOLIC PANEL (fasting) Specimen Type: SERUM No comment entered. Ordering Provider: COURTNEY FAROOQ Report Released Date/Time: Aug 08, 2024 01:49 PM Reporting Lab: [address] [address] Performing Lab: [address] [address] UREA NITROGEN 28 mg/dL H 7-25 GLUCOSE 98 mg/dL 65-100 SODIUM 133 mmol/L L 135-145 POTASSIUM 5.3 mmol/L H 3.5-5.0 CHLORIDE 106 mmol/L 100-110 CO2 15 meq/L L 20-30 CREATININE, Serum 1.31 mg/dL 0.50-1.40 eGFR(CKD-EPI 2020) 55 mL/min L >60 Aug 15, 2024 10:14 AM [facility] LIPID PANEL FASTING Specimen Type: SERUM No comment entered. Ordering Provider: CORUTNEY FAROOQ Report Released Date/Time: Aug 08, 2024 01:49 PM Reporting Lab: [facility] [address] [facility] [address] Performing Lab: [address] [address] CHOLESTEROL 69 mg/dL TRIGLYCERIDE 88 mg/dL 0-150 LDL calculated 16 mg/dL 0-129 CHOL/HDL 2.0 HDL CHOLESTEROL 35 mg/dL L 40-60 Aug 15, 2024 10:14 AM [facility] LIVER FUNCTION Specimen Type: SERUM No comment entered. Ordering Provider: COURTNEY FAROOQ Report Released Date/Time: Aug 08, 2024 01:49 PM Reporting Lab: [facility] [address] [facility] [address] Performing Lab: [address] [address] PROTEIN,TOTAL 6.2 g/dL 6.0-8.3 ALBUMIN 3.2 g/dL [...] Aug 08, 2024 01:49 PM Reporting Lab: [address] [address] Performing Lab: [facility] [address] [facility] [address] HEMOGLOBIN A1C 6.7 H 4.0-5.6 Aug 15, 2024 10:14 AM [facility] TSH Specimen Type: SERUM No comment entered. Ordering Provider: COURTNEY FAROOQ Report Released Date/Time: Aug 08, 2024 01:49 PM Reporting Lab: [facility] [address] [facility] [address] Performing Lab: [facility] [address] TSH 1.84 u[IU]/mL 0.35-5.00 Aug 15, 2024 10:14 AM [facility] CALCIUM Specimen Type: SERUM No comment entered. Ordering Provider: COURTNEY FAROOQ Report Released Date/Time: Aug 08, 2024 01:49 PM Reporting Lab: [address] [address] Performing Lab: [facility] [address] CALCIUM 8.5 mg/dL 8.5-10.2 Aug 15, 2024 10:14 AM [facility] CBC AND DIFF (AUTO) Specimen Type: BLOOD No comment entered. Ordering Provider: COURTNEY FAROOQ Report Released Date/Time: Aug 08, 2024 01:49 PM Reporting Lab: [address] [address] Performing Lab: [facility] [address] [address] WBC 7.54 10*3/uL 4.50-11.00 RBC 3.63 10*6/uL [...] Aug 08, 2024 01:49 PM Reporting Lab: [address] [address] Performing Lab: [address] [address] URIC ACID 7.9 mg/dL H 3.5-7.2 Aug 15, 2024 10:14 AM [facility] VITAMIN D (25-[place]) Specimen Type: SERUM No comment entered. Ordering Provider: COURTNEY FAROOQ Report Released Date/Time: Aug 08, 2024 01:49 PM Reporting Lab: [address] [address] Performing Lab: [address] [address] VITAMIN D (25-[place]) <13 ng/mL L 20-50 [...] AM [place]-TOBACCO QUIT 15 YRS OR MORE [facility] [...] Encounter Note(s) Provider Source Aug 28, 2024 11:00 AM GERIATRIC MEDICINE NOTE: LOCAL TITLE: PERSONAL CARE SERVICES CASE MIX TOOL STANDARD TITLE: GERIATRIC MEDICINE NOTE DATE OF NOTE: AUG 28, 2024@11:00:31 ENTRY DATE: AUG 28, 2024@11:00:31 AUTHOR: KEESHA DEAN EXP COSIGNER: URGENCY: STATUS: COMPLETED HCBS Case Mix & Budget Tool (CASE MIX) Date Given: 08/28/2024 Clinician: Keesha Dean Location: [facility]/telephone Rn : TomekamariannFatemeh SSN: [id number] : [birth year] ([birth year]) Gender: Man Type of Evaluation: Annual Anticipated Start Date: 08/28/2024 Anticipated Length of Service: 12 months Case Mix Level: K ADL Category: High Questions and Answers: Q1. DRESSING *2 Need some help from another person to put your clothes on. Q2. GROOMING *2 Needs and get daily help from another person. Q3. BATHING *4 Need and get help washing and drying your body. Q4. EATING *3 Need and get some personal help with feeding or someone needs to be sure that you don't choke. Q5. BED MOBILITY 0 Can move in bed without any help. Q6. TRANSFERRING *3 Need two other people or a mechanical aid to help you. Q7. WALKING *4 Cannot walk at all. Q8. BEHAVIOR 1 Occasional staff intervention / anxious, irritable, lethargic, demanding / responds to cues. Q9. COMMUNICATION 1 Usually Understood. Q10. TOILETING *6 Wet your pants and have bowel movements in your clothes very often. Q11. MDS HC 2.0/CPS Cognitive Skill for Daily Decision Making 2 Moderately Impaired - decisions poor; cues/supervision required. Q12. MDS 2.0/CPS: Short Term Memory (recall of what was learned or known) 1 Memory problem Q13. SPECIAL TREATMENTS 2 One or more [place] such as: 10. Skin Care, 11. Other, 7. Oxygen & Respiratory Therapy Q14. CLINICAL MONITORING 2 All shifts Q15. SPECIAL NURSING No Q16. NEUROMUSCULAR DIAGNOSIS Yes COMMENTS [place] has been hospitalized 3x in past year. Authorize increase in PLASTIC SURGERY COORDINATOR up to 40 hrs/week for assistance with pc/adl's/iadl's includes respite for 100% sc using second range of hours. SOURCES 2. Informant, 3. Medical Record // Keesha Dean RN RN Signed: 08/28/2024 11:29 KEESHA DEAN [place] [facility]
--- OUTSIDE RECORDS SUMMARY | 2024-10-17 15:31 | XMS_ITS | Encounter Summary ---
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 Organization [place] Address [address] [place] [address] Care Team Providers Care Rcp Name Role Phone GURPREET PEREZ Primary Care [...] Name Patient's Relationship to Policy Harding [facility] PLAN [facility] (WNR) MEDICARE ADVANTAGE [facility] (WNR) Oct 25, 2011 [facility] [id number] FATEM[address] GOMEZ PATIENT Selected Encounter This section includes the information on record at [place] for the Encounter. Date/Time Encounter Type Encounter Description Reason Pro vider Source Aug 07, 2024 12:00 PM Outpatient Encounter COMMUNITY [...] The data comes from all [place] treatment facilities. Appointment Date/Time Appointment Type Appointme nt Facility Name Aug 22, 2024 09:30 AM AMBULATORY - MEDICINE [facility] Aug 29, 2024 08:00 AM AMBULATORY - MEDICINE [facility] Sep 20, 2024 09:00 AM AMBULATORY - MEDICINE [facility] Oct 03, 2024 11:30 AM AMBULATORY - MEDICINE [facility] Active, Pending, and Scheduled Orders This section includes a listing of several types of active, pending, and scheduled orders, including clinic medications orders, diagnostic test orders, procedure orders and consult orders; where the start date of the order is 45 days before the date of the Encounter or 45 days after the date of theEncounter. The data comes from all [facility]. Test Date/Time Test Type Test Details Facility Name Aug 28, 2024 04:23 PM Consult Order COMMUNITY CARE-GEC NON-SKILLED HOME HEALTH AIDE Cons Bulk Loader's Choice [facility] Sep 20, 2024 10:06 AM Consult Order NUTRITION ASSESSMENT/EDUCATION/SPO PC OUTPT Cons Bulk Loader's [facility] Lab Results: +/- 30 days of the [...] Range Comment Aug 22, 2024 10:26 AM [facility] FOLATE (OX) Specimen Type: SERUM No comment entered. Ordering Provider: COURTNEY FAROOQ Report Released Date/Time: Aug 22, 2024 10:17 AM Reporting Lab: [facility] [address] [facility] [address] Performing Lab: [facility] [address] [facility] [address] FOLATE (WROX) 3.90 ng/mL L >5.2 Aug 22, 2024 10:26 AM RACINE RETICULOCYTES Specimen Type: BLOOD Comment: Smear reviewed, auto CBC w/Diff accepted. Ordering Provider: COURTNEY FAROOQ Report Released Date/Time: Aug 22, 2024 10:17 AM Reporting Lab: [address] [address] Performing Lab: [address] [address] RETIC % 2.6 H 0.6-2.0 RETIC, ABS 91.6 10*3/uL H 30.0-90.0 RET-HE % 29.6 27.9-42.0 Aug 22, 2024 10:26 AM R[facility] IRON & TIBC PANEL Specimen Type: SERUM No comment entered. Ordering Provider: COURTNEY FAROOQ Report Released Date/Time: Aug 22, 2024 10:17 AM Reporting Lab: [address] [address] Performing Lab: [address] [address] TIBC 210 ug/dL 204-475 IRON 43 ug/dL 40-160 Transferrin Saturation 20.5 20.0-50.0 Transferrin (TRF) 159 mg/dL L 200-360 Aug 22, 2024 10:26 AM RACINE CBC AND DIFF (AUTO) Specimen Type: BLOOD Comment: Smear reviewed, auto CBC w/Diff accepted. Ordering Provider: COURTNEY FAROOQ Report Released Date/Time: Aug 22, 2024 10:17 AM Reporting Lab: [address] [address] Performing Lab: [address] [address] WBC 7.35 10*3/uL 4.50-11.00 RBC 3.51 10*6/uL [...] H 0.00-0.00 Aug 22, 2024 10:26 AM RACINE FERRITIN Specimen Type: SERUM No comment entered. Ordering Provider: COURTNEY FAROOQ Report Released Date/Time: Aug 22, 2024 10:17 AM Reporting Lab: [address] [address] Performing Lab: [address] [address] FERRITIN 1130 ng/mL H 20-300 Aug 22, 2024 10:26 AM R[facility] VITAMIN B12 Specimen Type: SERUM No comment entered. Ordering Provider: COURTNEY FAROOQ Report Released Date/Time: Aug 22, 2024 10:17 AM Reporting Lab: [address] [address] Performing Lab: [address] [address] VITAMIN B12 378 pg/mL 200-900 Aug 22, 2024 10:26 AM [facility] BASIC METABOLIC PANEL (non-fasting) Spe cimen Type: SERUM No comment entered. Ordering Provider: COURTNEY FAROOQ Report Released Date/Time: Aug 22, 2024 10:17 AM Reporting Lab: [address] [address] Performing Lab: [facility] [address] [address] UREA NITROGEN 12 mg/dL 7-25 GLUCOSE 104 mg/dL H 65-100 SODIUM 136 mmol/L 135-145 POTASSIUM 4.7 mmol/L 3.5-5.0 CHLORIDE 106 mmol/L 100-110 CO2 18 meq/L L 20-30 CREATININE, Serum 1.15 mg/dL 0.50-1.40 eGFR(CKD-EPI 2020) 65 mL/min >60 Aug 22, 2024 10:26 AM [facility] LIVER FUNCTION Specimen Type: SERUM No comment entered. Ordering Provider: COURTNEY FAROOQ Report Released Date/Time: Aug 22, 2024 10:17 AM Reporting Lab: [address] [address] Performing Lab: [address] [address] PROTEIN,TOTAL 6.0 g/dL 6.0-8.3 ALBUMIN 3.1 g/dL L 3.5-5.0 ALKALINE PHOSPHATASE 138 U/L 40-150 AST 27 U/L 5-34 ALT 36 U/L BILIRUBIN, TOTAL 1.0 mg/dL 0.2-1.2 Aug 16, 2024 01:58 PM [facility] MICROALBUMIN CREATININE RATIO PANEL Specimen Type: URINE No comment entered. Ordering Provider: COURTNEY FAROOQ Report Released Date/Time: Aug 08, 2024 01:49 PM Reporting Lab: [address] [address] Performing Lab: [address] [address] MICROALBUMIN/CR EATININE RATIO 7.3 mg/g 0-29.9 MICROALBUMIN,QU ANTITATIVE 0.8 mg/dL RR UNAVAIL CREATININE URINE 109.38 mg/dL Aug 16, 2024 01:58 PM [facility] URINALYSIS Specimen Type: URINE Comment: If Glucose = >500 and Ketones are positive, please alert the Physician. Ordering Provider: COURTNEY FAROOQ Report Released Date/Time: Aug 08, 2024 01:49 PM Reporting Lab: [address] [place] [address] Performing Lab: [facility] [address] [facility] [address] UA COLOR Light-Yellow Yellow UA APPEARANCE Clear Clear UA GLUCOSE Normal mg/dL Negative UA KETONES NEGATIVE mg/dL Negative UA BLOOD NEGATIVE mg/dL Negative UA PROTEIN 10 mg/dL Negative UA NITRITE NEGATIVE mg/dL Negative UA BILIRUBIN NEGATIVE mg/dL Negative UA SPECIFIC GRAVITY 1.017 1.016-1.02 2 UA pH 6.0 5.0-9.0 UA UROBILINOGEN Normal mg/dL <2.0 UA LEUKOCYTE TRACE Negative Aug 16, 2024 01:58 PM [facility] MICROSCOPIC AUTOMATED, URINE Specimen Type: URINE Comment: If Glucose = >500 and Ketones are positive, please alert the Physician. Ordering Provider: COURTNEY FAROOQ Report Released Date/Time: Aug 08, 2024 01:49 PM Reporting Lab: [address] [address] Performing Lab: [address] [address] UA WBC 0-5 /[HPF] 0-5 UA BACTERIA 1+ /[HPF] NoneObs UA MUCUS FEW /[LPF] Trace UA HYALINE CASTS 2-4 /[LPF] 0-2 UA RBC 3-5 /[HPF] 0-3 Aug 15, 2024 10:14 AM [facility] BASIC METABOLIC PANEL (fasting) Specimen Type: SERUM No comment entered. Ordering Provider: COURTNEY FAROOQ Report Released Date/Time: Aug 08, 2024 01:49 PM Reporting Lab: [facility] [address] [facility] [address] Performing Lab: [address] [address] UREA NITROGEN 28 mg/dL H 7-25 GLUCOSE 98 mg/dL 65-100 SODIUM 133 mmol/L L 135-145 POTASSIUM 5.3 mmol/L H 3.5-5.0 CHLORIDE 106 mmol/L 100-110 CO2 15 meq/L L 20-30 CREATININE, Serum 1.31 mg/dL 0.50-1.40 eGFR(CKD-EPI 2020) 55 mL/min L >60 Aug 15, 2024 10:14 AM [facility] LIPID PANEL FASTING Specimen Type: SERUM No comment entered. Ordering Provider: COURTNEY FAROOQ Report Released Date/Time: Aug 08, 2024 01:49 PM Reporting Lab: [address] [address] Performing Lab: [address] [address] CHOLESTEROL 69 mg/dL TRIGLYCERIDE 88 mg/dL 0-150 LDL calculated 16 mg/dL 0-129 CHOL/HDL 2.0 HDL CHOLESTEROL 35 mg/dL L 40-60 Aug 15, 2024 10:14 AM [facility] LIVER FUNCTION Specimen Type: SERUM No comment entered. Ordering Provider: COURTNEY FAROOQ Report Released Date/Time: Aug 08, 2024 01:49 PM Reporting Lab: [address] [address] Performing Lab: [address] [address] PROTEIN,TOTAL 6.2 g/dL 6.0-8.3 ALBUMIN 3.2 g/dL L 3.5-5.0 ALKALINE PHOSPHATASE 103 U/L 40-150 AST 17 U/L 5-34 ALT 25 U/L BILIRUBIN, TOTAL 0.9 mg/dL 0.2-1.2 Aug 15, 2024 10:14 AM [facility] HEMOGLOBIN A1C PANEL Specimen [...] Aug 08, 2024 01:49 PM Reporting Lab: [address] [address] Performing Lab: [facility] [address] [facility] [address] HEMOGLOBIN A1C 6.7 H 4.0-5.6 Aug 15, 2024 10:14 AM [facility] TSH Specimen Type: SERUM No comment entered. Ordering Provider: COURTNEY FAROOQ Report Released Date/Time: Aug 08, 2024 01:49 PM Reporting Lab: [facility] [address] [facility] [address] Performing Lab: [facility] [address] [facility] [address] TSH 1.84 u[IU]/mL 0.35-5.00 Aug 15, 2024 10:14 AM [facility] CALCIUM Specimen Type: SERUM No comment entered. Ordering Provider: COURTNEY FAROOQ Report Released Date/Time: Aug 08, 2024 01:49 PM Reporting Lab: [facility] [address] [facility] [address] Performing Lab: [facility] [address] [facility] [address] CALCIUM 8.5 mg/dL 8.5-10.2 Aug 15, 2024 10:14 AM [facility] CBC AND DIFF (AUTO) Specimen Type: BLOOD No comment entered. Ordering Provider: COURTNEY FAROOQ Report Released Date/Time: Aug 08, 2024 01:49 PM Reporting Lab: [facility] [address] [facility] [address] Performing Lab: [facility] [address] [facility] [address] WBC 7.54 10*3/uL 4.50-11.00 RBC 3.63 10*6/uL [...] 10*3/uL 0.00-0.00 Aug 15, 2024 10:14 AM [facility] URIC ACID Specimen Type: SERUM No comment entered. Ordering Provider: COURTNEY FAROOQ Report Released Date/Time: Aug 08, 2024 01:49 PM Reporting Lab: [facility] [address] [facility] [address] Performing Lab: [address] [address] URIC ACID 7.9 mg/dL H 3.5-7.2 Aug 15, 2024 10:14 AM [facility] VITAMIN D (25-OH) Specimen Type: SERUM No comment entered. Ordering Provider: COURTNEY FAROOQ Report Released Date/Time: Aug 08, 2024 01:49 PM Reporting Lab: [facility] [address] [facility] [address] Performing Lab: [address] [address] VITAMIN D (25-OH) <13 ng/mL L 20-50 [...] AM [place]-TOBACCO QUIT 15 YRS OR MORE [facility] [...] Encounter. Date/Time Encounter Note(s) Provider Source Aug 07, 2024 12:00 PM NONVA CONSULT: LOCAL TITLE: COMMUNITY CARE-CONSULT RESULT NOTE STANDARD TITLE: NONVA CONSULT DATE OF NOTE: AUG 07, 2024@12:00 ENTRY DATE: SEP 14, 2024@13:03:24 AUTHOR: LIBAN TRIMBLE EXP COSIGNER: URGENCY: STATUS: COMPLETED VistA Imaging - Scanned Document SCANNED DOCUMENT SIGNATURE NOT REQUIRED Electronically Filed: 09/14/2024 by: LIBAN TRIMBLE [employer] SUPERVISOR LIBAN TRIMBLE [facility]
--- OUTSIDE RECORDS SUMMARY | 2024-10-17 15:31 | XMS_ITS | Encounter Summary ---
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 Affairs ([place]) Organization [place] Address [address] [place] [id number] Care Team Providers Care Director Furniture Name Role Phone GURPREET PEREZ Primary Care [...] Patient's Relationship to Policy Harding [facility] PLAN [facility] (WNR) MEDICARE ADVANTAGE [facility] (R) Oct 25, 2011 [facility] [id number] FAT[address] GOMEZ PATIENT Selected Encounter This [...] 2024 10:05 AM SECONDARY Age-related physical debility GURPREET MAYORGA [place] Sep 20, 2024 10:05 AM SECONDARY Athscl heart disease [place] coronary artery w/o ang pctrs GURPREET MAYORGA [place] Sep 20, 2024 10:05 AM SECONDARY Bronchiectasis, uncomplicated GURPREET MAYORGA [place] Sep 20, 2024 10:05 AM SECONDARY Disorientation, unspecified GURPREET MAYOR[place] Sep 20, 2024 10:05 AM SECONDARY Essential (primary) hypertension VARGAS DAHLCATHIE [facility] Sep 20, 2024 10:05 AM SECONDARY Hyperlipidemia, unspecified VARGAS DAHL,GURPREET [facility] Sep 20, 2024 10:05 AM SECONDARY Type 2 diabetes mellitus without complications GURPREET MAYORGA [facility] Sep 20, 2024 10:05 AM SECONDARY Unspecified chronic bronchitis GURPREET MAYORGA [facility] Sep 20, 2024 10:05 AM SECONDARY Unspecified hearing loss, unspecified ear VARGAS DAHLCATHIE [facility] Plan of Treatment: Future Appointments (+ 6 months) and Future Tests (+/- 45 days) The Plan of Treatment section includes future care activities for the patient [facility] [place] [facility] This section includes future appointments and future orders which are active, pending or scheduled. Future Appointments This section includes appointments that were scheduled to occur 6 months from the date of the Encounter, up to a maximum of 20 appointments. The data comes from all [place] treatment [facility]. Appointment Date/Time Appointment Type Appointme nt Facility Name Oct 03, 2024 11:30 AM AMBULATORY - MEDICINE [facility] Active, Pending, and Scheduled Orders This section includes a listing of several types of active, pending, and scheduled orders, including clinic medications orders, diagnostic test orders, procedure orders and consult orders; where the start date of the order is 45 days before the date of the Encounter or 45 days after the date of theEncounter. The data comes from all [place] treatment facilities. Test Date/Time Test Type Test Details Facility Name Aug 28, 2024 04:23 PM Consult Order COMMUNITY CARE-GEC NON-SKILLED HOME HEALTH AIDE Cons Medart Operator's Choice [place] [facility] Sep 20, 2024 10:06 AM Consult Order NUTRITION ASSESSMENT/EDUCATION/SPO PC OUTPT Cons Medart Operator's Choice [place] Lab Results: +/- 30 days of the encounter This section includes the Chemistry and Hematology Lab Results on record with [place] for the patient. Radiology Reports and Pathology Reports are provided separately, in subsequent sections. Lab Results This section contains the Chemistry/Hematology Results that were resulted 30 days before or 30 daysafter the date of the Encounter. Date/Time Source Result Type Result - Unit Interpretation Reference Range Comment Aug 22, 2024 10:26 AM [place] FOLATE (WROX) Specimen Type: SERUM No comment entered. Ordering Provider: COURTNEY FAROOQ Report Released Date/Time: Aug 22, 2024 10:17 AM Reporting Lab: [address] [address] Performing Lab: [facility] [address] [facility] [address] FOLATE (WROX) 3.90 ng/mL L >5.2 Aug 22, 2024 10:26 AM [place] RETICULOCYTES Specimen Type: BLOOD Comment: Smear reviewed, auto CBC w/Diff accepted. Ordering Provider: COUTRNEY FAROOQ Report Released Date/Time: Aug 22, 2024 10:17 AM Reporting Lab: [address] [address] Performing Lab: [address] [address] RETIC % 2.6 H 0.6-2.0 RETIC, ABS 91.6 10*3/uL H 30.0-90.0 RET-HE % 29.6 27.9-42.0 Aug 22, 2024 10:26 AM [place] IRON & TIBC PANEL Specimen Type: SERUM No comment entered. Ordering Provider: COURTNEY FAROOQ Report Released Date/Time: Aug 22, 2024 10:17 AM Reporting Lab: [address] [address] Performing Lab: [facility] [address] [facility] [address] TIBC 210 ug/dL 204-475 IRON 43 ug/dL 40-160 Transferrin Saturation 20.5 20.0-50.0 Transferrin (TRF) 159 mg/dL L 200-360 Aug 22, 2024 10:26 AM [place] CBC AND DIFF (AUTO) Specimen Type: BLOOD Comment: Smear reviewed, auto CBC w/Diff accepted. Ordering Provider: COURTNEY FAROOQ Report Released Date/Time: Aug 22, 2024 10:17 AM Reporting Lab: [facility] [address] [facility] [address] Performing Lab: [facility] [address] [facility] [address] WBC 7.35 10*3/uL 4.50-11.00 RBC 3.51 10*6/uL [...] H 0.00-0.00 Aug 22, 2024 10:26 AM [place] FERRITIN Specimen Type: SERUM No comment entered. Ordering Provider: COURTNEY FAROOQ Report Released Date/Time: Aug 22, 2024 10:17 AM Reporting Lab: [facility] [address] [facility] [address] Performing Lab: [facility] [address] FERRITIN 1130 ng/mL H 20-300 Aug 22, 2024 10:26 AM [place] VITAMIN B12 Specimen Type: SERUM No comment entered. Ordering Provider: COURTNEY FAROOQ Report Released Date/Time: Aug 22, 2024 10:17 AM Reporting Lab: [facility] [address] Performing Lab: [facility] [address] [address] VITAMIN B12 378 pg/mL 200-900 Aug 22, 2024 10:26 AM [place] BASIC METABOLIC PANEL (non-fasting) Spe cimen Type: SERUM No comment entered. Ordering Provider: COURTNEY FAROOQ Report Released Date/Time: Aug 22, 2024 10:17 AM Reporting Lab: [facility] [address] Performing Lab: [facility]ITAL[facility]ITALUSETS [address] [address] UREA NITROGEN 12 mg/dL 7-25 GLUCOSE 104 mg/dL H 65-100 SODIUM 136 mmol/L 135-145 POTASSIUM 4.7 mmol/L 3.5-5.0 CHLORIDE 106 mmol/L 100-110 CO2 18 meq/L L 20-30 CREATININE, Serum 1.15 mg/dL 0.50-1.40 eGFR(CKD-EPI 2020) 65 mL/min >60 Aug 22, 2024 10:26 AM [place] LIVER FUNCTION Specimen Type: SERUM No comment entered. Ordering Provider: COURTNEY FAROOQ Report Released Date/Time: Aug 22, 2024 10:17 AM Reporting Lab: [facility]ITAL[facility]ITALTRN [facility] [address] Performing Lab: [address] [address] PROTEIN,TOTAL 6.0 g/dL 6.0-8.3 ALBUMIN 3.1 g/dL [...] Facil ity Aug 22, 2024 09:30 AM [place]-TOBACCO NEVER USED [place] Tobacco Use History This section includes a history of the smoking, or tobacco-related health factors, that were collected on or before the date of the Encounter. The data comes from the [place] facility where the Encounter took place. Date/Time Smoking Status/Tobacco Use Comment F acility Aug 22, 2024 09:30 AM [place]-TOBACCO NEVER USED [place] Aug 22, 2024 09:30 AM [place]-TOBACCO QUIT 15 YRS OR MORE [place] Advance Directives: All historical and current Section [...] PEDRAZA Jun 30, 2019 ADVANCE DIRECTIVE SHERRYCASSIE [facility] Encounter Notes: All associated encounter notes This section contains the clinical notes associated to the Encounter. Date/Time Encounter Note(s) Provider Source Sep 20, 2024 09:00 AM PHYSICIAN NOTE: LOCAL TITLE: NOTE STANDARD TITLE: PHYSICIAN NOTE DATE OF NOTE: SEP 20, 2024@09:00 ENTRY DATE: SEP 18, 2024@23:35:50 AUTHOR: Adriel PEREZ COSIGNER: URGENCY: STATUS: COMPLETED NOTE Has ADDENDA Pt is 79 y/o M with PMH of HTN, HL, DM2, CAD s/p PCI 2 stents, COPD (chronic bronchitis, bronchiectasis), anemia, hearing loss called today for annual [facility] f/u last/inital visit 07/2023 PCP is non-VA Dr Jhon Christianson - q3-4m (next 11/2023) Other providers: --neurology Dr Bernadette Landry [facility] --pulmonary Dr Ruiz - [phone] [place] cardiovascular [facility] q3-4m --cardiology Dr Moreira [phone] [facility] not seen recently --non [place] podiatry q4-5m --non [place] eye [facility] July 2024 admitted at [facility] Admitting diagnosis -bacteriemia and urinary sepsis [...] weakness and knee pain moslty wheelchair bound RN POSTPARTUM Lena 40h/week, and help him walk with a walker pt was supposed to have PT at home but still has not started, per [employer] never received referral prior to hospitalziation pt was ambulating with a cane non va pcp referred pt to neurology for cognitive issues, episodes of confussion, easily aggitated, delusions. last few months getting worse. Dx with REM sleep dissorder - to f/w neurology no bed soars #CAD/HL and RN POSTPARTUM managing meds compliant with medications denies CP/SOB/RODAS/palpitations/dizzi [...] SURGICAL HISTORY: --vasectomy --PCI s/p stent x2 [facility] ALLERGIES: SULFA DRUGS, SULFAMETHOXAZOLE/TRIMETHOPRIM , INFLUENZA VACCINE [...] TWICE DAILY NEEDED URINARY INCONTINENCE SOCIAL HISTORY: [employer] --Occupation:retired --Cohabitation: --Children: one sone (1977), 2 stepchildren --Diet: regular , 2 meals daily --Exercise: None wheelchair-bound --Caffeine: 2c/daily --EtOH:rarely --Tob: quit 29 y/ago, h/o 30xPPDY --MJ: denies --Illicits:denies --Eye: UTD --Dental: dentures --Hospitalizations: 05/2023 rahab at [facility] 06/2023 COVID PNA 07/2024 urosepsis, PNA, PILY [...] Signs: Blood Pressure: 124/78 (07/29/2023 11:27) Gen: jack, NAD LABORATORY:07/2024 WBC: 7.35 HGB: 11.1 L [...] NEGATIVE Bilirubin, Urine (AX 4280): NEGATIVE Specific [place], (AX 4280): 1.017 pH, Urine ([id number]): 6.0 Urobilinogen, Urine (AX 4280): Normal Leukocyte [...] as needed only F/w with non-VA pulmonary #CF2-tsal-tiluowmqsm -c/w metformin 1000 mg daily #Hearing loss-has hearing aids f/w [place] [facility] #eye = scheduled with [facility] eye [...] this [facility] (local) and dispensed from another [place] or [facility] facility (remote) as well as inpatient orders [...] as requested and held for PCP signature. /mini ROWE RN REGISTERED NURSE Signed: 09/24/2024 23:21 EDY PEREZFIELD
--- OUTSIDE RECORDS SUMMARY | 2024-10-17 15:31 | XMS_ITS | Encounter Summary ---
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 Affairs ([place]) Organization Department of Veter[place] Affairs ([place]) Address [address] [place] [address] Care Team Providers Care Keno Attendant Name Role Phone GURPREET PEREZ Primary [...] Policy Harding [facility] PLAN [facility] (WNR) MEDICARE ADVANTAGE [facility] (WNR) Oct 25, 2011 [facility] [id number] PATIENT Selected Encounter This section includes the information on record at [place] for the Encounter. Date/Time Encounter Type Encounter Description Reason Pro vider Source Sep 04, 2024 12:00 PM Outpatient Encounter COMMUNITY [...] Date/Time Appointment Type Appointme nt Facility Name Sep 20, 2024 09:00 AM AMBULATORY - MEDICINE [facility] Oct 03, 2024 11:30 AM AMBULATORY - MEDICINE [facility] Active, Pending, and Scheduled Orders This section includes a listing of several types of active, pending, and scheduled orders, including clinic medications orders, diagnostic test orders, procedure orders and consult orders; where the start date of the order is 45 days before the date of the Encounter or 45 days after the date of theEncounter. The data comes from all [place] treatment facilities. Test Date/Time Test Type Test Details Facility Name Aug 28, 2024 04:23 PM Consult Order COMMUNITY CARE-GEC NON-SKILLED HOME HEALTH AIDE Cons Group Home Manager's Choice [place] [facility] Sep 20, 2024 10:06 AM Consult Order NUTRITION ASSESSMENT/EDUCATION/SPO PC OUTPT Cons Group Home Manager's Choice [facility] Lab Results: +/- 30 days of the encounter This section includes the Chemistry and Hematology Lab Results on record with [place] for the patient. Radiology Reports and Pathology Reports are provided separately, in subsequent sections. Lab Results This section contains the Chemistry/Hematology Results that were resulted 30 days before or 30 daysafter the date of the Encounter. Date/Time Source Result Type Result - Unit Interpretation Reference Range Comment Aug 22, 2024 10:26 AM [facility] FOLATE (WROX) Specimen Type: SERUM No comment entered. Ordering Provider: COURTNEY FAROOQ Report Released Date/Time: Aug 22, 2024 10:17 AM Reporting Lab: [facility] [place] [facility] [address] [facility] [address] Performing Lab: [facility] [address] [facility] [address] FOLATE (WROX) 3.90 ng/mL L >5.2 Aug 22, 2024 10:26 AM [facility] RETICULOCYTES Specimen Type: BLOOD Comment: Smear reviewed, auto CBC w/Diff accepted. Ordering Provider: COURTNEY FAROOQ Report Released Date/Time: Aug 22, 2024 10:17 AM Reporting Lab: [facility] [address] [facility] [address] Performing Lab: [address] [address] RETIC % 2.6 H 0.6-2.0 RETIC, ABS 91.6 10*3/uL H 30.0-90.0 RET-HE % 29.6 27.9-42.0 Aug 22, 2024 10:26 AM [facility] IRON & TIBC PANEL Specimen Type: SERUM No comment entered. Ordering Provider: COURTNEY FAROOQ Report Released Date/Time: Aug 22, 2024 10:17 AM Reporting Lab: [address] [address] Performing Lab: [address] [address] TIBC 210 ug/dL 204-475 IRON 43 ug/dL 40-160 Transferrin Saturation 20.5 20.0-50.0 Transferrin (TRF) 159 mg/dL L 200-360 Aug 22, 2024 10:26 AM [facility] CBC AND DIFF (AUTO) Specimen Type: BLOOD Comment: Smear reviewed, auto CBC w/Diff accepted. Ordering Provider: COURTNEY FAROOQ Report Released Date/Time: Aug 22, 2024 10:17 AM Reporting Lab: [address] [address] Performing Lab: [address] [address] WBC 7.35 10*3/uL 4.50-11.00 RBC 3.51 10*6/uL [...] H 0.00-0.00 Aug 22, 2024 10:26 AM [facility] FERRITIN Specimen Type: SERUM No comment entered. Ordering Provider: COURTNEY FAROOQ Report Released Date/Time: Aug 22, 2024 10:17 AM Reporting Lab: [address] [address] Performing Lab: [address] [address] FERRITIN 1130 ng/mL H 20-300 Aug 22, 2024 10:26 AM [facility] VITAMIN B12 Specimen Type: SERUM No comment entered. Ordering Provider: COURTNEY FAROOQ Report Released Date/Time: Aug 22, 2024 10:17 AM Reporting Lab: [address] [address] Performing Lab: [address] [address] VITAMIN B12 378 pg/mL 200-900 Aug 22, 2024 10:26 AM [facility] BASIC METABOLIC PANEL (non-fasting) Spe cimen Type: SERUM No comment entered. Ordering Provider: COURTNEY FAROOQ Report Released Date/Time: Aug 22, 2024 10:17 AM Reporting Lab: [address] [address] Performing Lab: [address] [address] UREA NITROGEN 12 mg/dL 7-25 GLUCOSE 104 mg/dL H 65-100 SODIUM 136 mmol/L 135-145 POTASSIUM 4.7 mmol/L 3.5-5.0 CHLORIDE 106 mmol/L 100-110 CO2 18 meq/L L 20-30 CREATININE, Serum 1.15 mg/dL 0.50-1.40 eGFR(CKD-EPI 2020) 65 mL/min >60 Aug 22, 2024 10:26 AM [facility] LIVER FUNCTION Specimen Type: SERUM No comment entered. Ordering Provider: COURTNEY FAROOQ Report Released Date/Time: Aug 22, 2024 10:17 AM Reporting Lab: [facility] [address] [facility] [address] Performing Lab: [address] [address] PROTEIN,TOTAL 6.0 g/dL 6.0-8.3 ALBUMIN 3.1 g/dL L 3.5-5.0 ALKALINE PHOSPHATASE 138 U/L 40-150 AST 27 U/L 5-34 ALT 36 U/L BILIRUBIN, TOTAL 1.0 mg/dL 0.2-1.2 Aug 16, 2024 01:58 PM [facility] MICROALBUMIN CREATININE RATIO PANEL Specimen Type: URINE No comment entered. Ordering Provider: COURTNEY FAROOQ Report Released Date/Time: Aug 08, 2024 01:49 PM Reporting Lab: [facility] [address] [facility] [address] Performing Lab: [address] [address] MICROALBUMIN/CR EATININE RATIO 7.3 mg/g 0-29.9 MICROALBUMIN,QU ANTITATIVE 0.8 mg/dL RR UNAVAIL CREATININE URINE 109.38 mg/dL Aug 16, 2024 01:58 PM [facility] URINALYSIS Specimen Type: URINE Comment: If Glucose = >500 and Ketones are positive, please alert the Physician. Ordering Provider: COURTNEY FAROOQ Report Released Date/Time: Aug 08, 2024 01:49 PM Reporting Lab: [facility] [address] [facility] [address] Performing Lab: [address] [address] UA COLOR Light-Yellow Yellow UA APPEARANCE Clear Clear UA GLUCOSE Normal mg/dL Negative UA KETONES NEGATIVE mg/dL Negative UA BLOOD NEGATIVE mg/dL Negative UA PROTEIN 10 mg/dL Negative UA NITRITE NEGATIVE mg/dL Negative UA BILIRUBIN NEGATIVE mg/dL Negative UA SPECIFIC GRAVITY 1.017 1.016-1.02 2 UA pH 6.0 5.0-9.0 UA UROBILINOGEN Normal mg/dL <2.0 UA LEUKOCYTE TRACE Negative Aug 16, 2024 01:58 PM [facility] MICROSCOPIC AUTOMATED, URINE Specimen Type: URINE Comment: If Glucose = >500 and Ketones are positive, please alert the Physician. Ordering Provider: COURTNEY FAROOQ Report Released Date/Time: Aug 08, 2024 01:49 PM Reporting Lab: [address] [address] Performing Lab: [address] [address] UA WBC 0-5 /[HPF] 0-5 UA BACTERIA 1+ /[HPF] NoneObs UA MUCUS FEW /[LPF] Trace UA HYALINE CASTS 2-4 /[LPF] 0-2 UA RBC 3-5 /[HPF] 0-3 Aug 15, 2024 10:14 AM [facility] BASIC METABOLIC PANEL (fasting) Specimen Type: SERUM No comment entered. Ordering Provider: COURTNEY FAROOQ Report Released Date/Time: Aug 08, 2024 01:49 PM Reporting Lab: [address] [address] Performing Lab: [address] [address] UREA NITROGEN 28 mg/dL H 7-25 GLUCOSE 98 mg/dL 65-100 SODIUM 133 mmol/L L 135-145 POTASSIUM 5.3 mmol/L H 3.5-5.0 CHLORIDE 106 mmol/L 100-110 CO2 15 meq/L L 20-30 CREATININE, Serum 1.31 mg/dL 0.50-1.40 eGFR(CKD-EPI 2020) 55 mL/min L >60 Aug 15, 2024 10:14 AM [facility] LIPID PANEL FASTING Specimen Type: SERUM No comment entered. Ordering Provider: COURTNEY FAROOQ Report Released Date/Time: Aug 08, 2024 01:49 PM Reporting Lab: [facility] [address] [facility] [address] Performing Lab: [address] [address] CHOLESTEROL 69 mg/dL TRIGLYCERIDE 88 mg/dL 0-150 LDL calculated 16 mg/dL 0-129 CHOL/HDL 2.0 HDL CHOLESTEROL 35 mg/dL L 40-60 Aug 15, 2024 10:14 AM [facility] LIVER FUNCTION Specimen Type: SERUM No comment entered. Ordering Provider: COURTNEY FAROOQ Report Released Date/Time: Aug 08, 2024 01:49 PM Reporting Lab: [facility] [address] [facility] [address] Performing Lab: [address] [address] PROTEIN,TOTAL 6.2 g/dL 6.0-8.3 ALBUMIN 3.2 g/dL L 3.5-5.0 ALKALINE PHOSPHATASE 103 U/L 40-150 AST 17 U/L 5-34 ALT 25 U/L BILIRUBIN, TOTAL 0.9 mg/dL 0.2-1.2 Aug 15, 2024 10:14 AM [facility] HEMOGLOBIN A1C PANEL Specimen Type: [...] 08, 2024 01:49 PM Reporting Lab: [address] [address] Performing Lab: [address] [address] HEMOGLOBIN A1C 6.7 H 4.0-5.6 Aug 15, 2024 10:14 AM [facility] TSH Specimen Type: SERUM No comment entered. Ordering Provider: COURTNEY FAROOQ Report Released Date/Time: Aug 08, 2024 01:49 PM Reporting Lab: [facility] [address] [facility] [address] Performing Lab: [address] [address] TSH 1.84 u[IU]/mL 0.35-5.00 Aug 15, 2024 10:14 AM [facility] CALCIUM Specimen Type: SERUM No comment entered. Ordering Provider: COURTNEY FAROOQ Report Released Date/Time: Aug 08, 2024 01:49 PM Reporting Lab: [facility] [address] [facility] [address] Performing Lab: [address] [address] CALCIUM 8.5 mg/dL 8.5-10.2 Aug 15, 2024 10:14 AM [facility] CBC AND DIFF (AUTO) Specimen Type: BLOOD No comment entered. Ordering Provider: COURTNEY FAROOQ Report Released Date/Time: Aug 08, 2024 01:49 PM Reporting Lab: [facility] [address] [facility] [address] Performing Lab: [address] [address] WBC 7.54 10*3/uL 4.50-11.00 RBC 3.63 10*6/uL [...] 10*3/uL 0.00-0.00 Aug 15, 2024 10:14 AM [facility] URIC ACID Specimen Type: SERUM No comment entered. Ordering Provider: COURTNEY FAROOQ Report Released Date/Time: Aug 08, 2024 01:49 PM Reporting Lab: [facility] [address] [facility] [address] Performing Lab: [facility] [address] [facility] [address] URIC ACID 7.9 mg/dL H 3.5-7.2 Aug 15, 2024 10:14 AM [facility] VITAMIN D (25-OH) Specimen Type: SERUM No comment entered. Ordering Provider: COURTNEY FAROOQ Report Released Date/Time: Aug 08, 2024 01:49 PM Reporting Lab: [facility] [address] [facility] [address] Performing Lab: [address] [address] VITAMIN D (25-OH) <13 ng/mL L 20-50 [...] 03, 2023 08:58 AM [place]-TOBACCO FORMER USER [facility] Tobacco Use History This section includes a history of the smoking, or tobacco-related health factors, that were collected on or before the date of the Encounter. The data comes from the [place] facility where the Encounter took place. Date/Time Smoking Status/Tobacco Use Comment F acility Jun 03, 2023 08:58 AM [place]-TOBACCO QUIT 15 YRS OR MORE [facility] Advance Directives: All historical and [...] Jun 30, 2019 ADVANCE DIRECTIVE CASSIE POWELL [facility] Encounter Notes: All associated encounter notes This section contains the clinical notes associated to the Encounter. Date/Time Encounter Note(s) Provider Source Sep 04, 2024 12:00 PM NONVA CONSULT: LOCAL TITLE: COMMUNITY CARE-CONSULT RESULT NOTE STANDARD TITLE: NONVA CONSULT DATE OF NOTE: SEP 04, 2024@12:00 ENTRY DATE: SEP 29, 2024@14:16 AUTHOR: LIBAN TRIMBLE EXP COSIGNER: URGENCY: STATUS: COMPLETED VistA Imaging - Scanned Document SCANNED DOCUMENT SIGNATURE NOT REQUIRED Electronically Filed: 09/29/2024 by: LIBAN TRIMBLE MEDICAL HUMAN RESOURCE ANALYST LIBAN TRIMBLE [facility]
--- OUTSIDE RECORDS SUMMARY | 2024-10-17 15:31 | XMS_ITS | Encounter Summary ---
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 Affairs [place]) Organization [place] Address [address] [place] [address] Care Team Providers Care Linotypist Name Role Phone GURPREET PEREZ Primary Care [...] Patient's Relationship to Policy Harding [facility] PLAN [facility] (WNR) MEDICARE ADVANTAGE [facility] (WNR) Oct 25, 2011 [facility] [id number]OMEZ PATIENT Selected Encounter This section includes the information on record at [place] for the Encounter. Date/Time Encounter Type Encounter Description Reason Pro vider Source Aug 14, 2024 12:00 PM Outpatient Encounter COMMUNITY CARE [...] 22, 2024 09:30 AM AMBULATORY - MEDICINE [facility] Aug 29, 2024 08:00 AM [facility] - [facility] Sep 20, 2024 09:00 AM AMBULATORY - MEDICINE [facility] Oct 03, 2024 11:30 AM AMBULATORY - MEDICINE [facility] Active, Pending, and Scheduled Orders This section includes a listing of several types of active, pending, and scheduled orders, including clinic medications orders, diagnostic test orders, procedure orders and consult orders; where the start date of the order is 45 days before the date of the Encounter or 45 days after the date of theEncounter. The data comes from all [facility]. Test Date/Time Test Type Test Details Facility Name Aug 28, 2024 04:23 PM Consult Order COMMUNITY CARE-GEC NON-SKILLED HOME HEALTH AIDE Cons Senior Business Development Analyst's Choice [facility] Sep 20, 2024 10:06 AM Consult Order NUTRITION ASSESSMENT/EDUCATION/SPO PC OUTPT Cons Senior Business Development Analyst's [facility] Lab Results: +/- 30 days of the encounter This section includes the Chemistry and Hematology Lab Results on record with [place] for the patient. Radiology Reports and Pathology Reports are provided separately, in subsequent sections. Lab Results This section contains the Chemistry/Hematology Results that were resulted 30 days before or 30 daysafter the date of the Encounter. Date/Time Source Result Type Result - Unit Interpretation Reference Range Comment Aug 22, 2024 10:26 AM [facility] FOLATE (OX) Specimen Type: SERUM No comment entered. Ordering Provider: COURTNEY FAROOQ Report Released Date/Time: Aug 22, 2024 10:17 AM Reporting Lab: [facility] [address] [facility] [address] Performing Lab: [facility] [address] [facility] [address] FOLATE (WROX) 3.90 ng/mL L >5.2 Aug 22, 2024 10:26 AM [facility] RETICULOCYTES Specimen Type: BLOOD Comment: Smear reviewed, auto CBC w/Diff accepted. Ordering Provider: COURTNEY FAROOQ Report Released Date/Time: Aug 22, 2024 10:17 AM Reporting Lab: [address] [address] Performing Lab: [address] [address] RETIC % 2.6 H 0.6-2.0 RETIC, ABS 91.6 10*3/uL H 30.0-90.0 RET-HE % 29.6 27.9-42.0 Aug 22, 2024 10:26 AM [facility] IRON & TIBC PANEL Specimen Type: SERUM No comment entered. Ordering Provider: COURTNEY FAROOQ Report Released Date/Time: Aug 22, 2024 10:17 AM Reporting Lab: [address] [address] Performing Lab: [address] [address] TIBC 210 ug/dL 204-475 IRON 43 ug/dL 40-160 Transferrin Saturation 20.5 20.0-50.0 Transferrin (TRF) 159 mg/dL L 200-360 Aug 22, 2024 10:26 AM [facility] CBC AND DIFF (AUTO) Specimen Type: BLOOD Comment: Smear reviewed, auto CBC w/Diff accepted. Ordering Provider: COURTNEY FAROOQ Report Released Date/Time: Aug 22, 2024 10:17 AM Reporting Lab: [address] [address] Performing Lab: [address] [address] WBC 7.35 10*3/uL 4.50-11.00 RBC 3.51 10*6/uL [...] H 0.00-0.00 Aug 22, 2024 10:26 AM [facility] FERRITIN Specimen Type: SERUM No comment entered. Ordering Provider: COURTNEY FAROOQ Report Released Date/Time: Aug 22, 2024 10:17 AM Reporting Lab: [address] [address] Performing Lab: [address] [address] FERRITIN 1130 ng/mL H 20-300 Aug 22, 2024 10:26 AM [facility] VITAMIN B12 Specimen Type: SERUM No comment entered. Ordering Provider: COURTNEY FAROOQ Report Released Date/Time: Aug 22, 2024 10:17 AM Reporting Lab: [address] [address] Performing Lab: [address] [address] VITAMIN B12 378 pg/mL 200-900 Aug 22, 2024 10:26 AM [facility] BASIC METABOLIC PANEL (non-fasting) Spe cimen Type: SERUM No comment entered. Ordering Provider: COURTNEY FAROOQ Report Released Date/Time: Aug 22, 2024 10:17 AM Reporting Lab: [address] [address] Performing Lab: [facility] [address] [address] UREA NITROGEN 12 mg/dL 7-25 GLUCOSE 104 mg/dL H 65-100 SODIUM 136 mmol/L 135-145 POTASSIUM 4.7 mmol/L 3.5-5.0 CHLORIDE 106 mmol/L 100-110 CO2 18 meq/L L 20-30 CREATININE, Serum 1.15 mg/dL 0.50-1.40 eGFR(CKD-EPI 2020) 65 mL/min >60 Aug 22, 2024 10:26 AM [facility] LIVER FUNCTION Specimen Type: SERUM No comment entered. Ordering Provider: COURTNEY FAROOQ Report Released Date/Time: Aug 22, 2024 10:17 AM Reporting Lab: [address] [address] Performing Lab: [address] [address] PROTEIN,TOTAL 6.0 g/dL 6.0-8.3 ALBUMIN 3.1 g/dL L 3.5-5.0 ALKALINE PHOSPHATASE 138 U/L 40-150 AST 27 U/L 5-34 ALT 36 U/L BILIRUBIN, TOTAL 1.0 mg/dL 0.2-1.2 Aug 16, 2024 01:58 PM [facility] MICROALBUMIN CREATININE RATIO PANEL Specimen Type: URINE No comment entered. Ordering Provider: COURTNEY FAROOQ Report Released Date/Time: Aug 08, 2024 01:49 PM Reporting Lab: [address] [address] Performing Lab: [address] [address] MICROALBUMIN/CR EATININE RATIO 7.3 mg/g 0-29.9 MICROALBUMIN,QU ANTITATIVE 0.8 mg/dL RR UNAVAIL CREATININE URINE 109.38 mg/dL Aug 16, 2024 01:58 PM [facility] URINALYSIS Specimen Type: URINE Comment: If Glucose = >500 and Ketones are positive, please alert the Physician. Ordering Provider: COURTNEY FAROOQ Report Released Date/Time: Aug 08, 2024 01:49 PM Reporting Lab: [address] [place] [address] Performing Lab: [facility] [address] [facility] [address] UA COLOR Light-Yellow Yellow UA APPEARANCE Clear Clear UA GLUCOSE Normal mg/dL Negative UA KETONES NEGATIVE mg/dL Negative UA BLOOD NEGATIVE mg/dL Negative UA PROTEIN 10 mg/dL Negative UA NITRITE NEGATIVE mg/dL Negative UA BILIRUBIN NEGATIVE mg/dL Negative UA SPECIFIC GRAVITY 1.017 1.016-1.02 2 UA pH 6.0 5.0-9.0 UA UROBILINOGEN Normal mg/dL <2.0 UA LEUKOCYTE TRACE Negative Aug 16, 2024 01:58 PM [facility] MICROSCOPIC AUTOMATED, URINE Specimen Type: URINE Comment: If Glucose = >500 and Ketones are positive, please alert the Physician. Ordering Provider: COURTNEY FAROOQ Report Released Date/Time: Aug 08, 2024 01:49 PM Reporting Lab: [address] [address] Performing Lab: [address] [address] UA WBC 0-5 /[HPF] 0-5 UA BACTERIA 1+ /[HPF] NoneObs UA MUCUS FEW /[LPF] Trace UA HYALINE CASTS 2-4 /[LPF] 0-2 UA RBC 3-5 /[HPF] 0-3 Aug 15, 2024 10:14 AM [facility] BASIC METABOLIC PANEL (fasting) Specimen Type: SERUM No comment entered. Ordering Provider: COURTNEY FAROOQ Report Released Date/Time: Aug 08, 2024 01:49 PM Reporting Lab: [facility] [address] [facility] [address] Performing Lab: [address] [address] UREA NITROGEN 28 mg/dL H 7-25 GLUCOSE 98 mg/dL 65-100 SODIUM 133 mmol/L L 135-145 POTASSIUM 5.3 mmol/L H 3.5-5.0 CHLORIDE 106 mmol/L 100-110 CO2 15 meq/L L 20-30 CREATININE, Serum 1.31 mg/dL 0.50-1.40 eGFR(CKD-EPI 2020) 55 mL/min L >60 Aug 15, 2024 10:14 AM [facility] LIPID PANEL FASTING Specimen Type: SERUM No comment entered. Ordering Provider: COURTNEY FAROOQ Report Released Date/Time: Aug 08, 2024 01:49 PM Reporting Lab: [address] [address] Performing Lab: [address] [address] CHOLESTEROL 69 mg/dL TRIGLYCERIDE 88 mg/dL 0-150 LDL calculated 16 mg/dL 0-129 CHOL/HDL 2.0 HDL CHOLESTEROL 35 mg/dL L 40-60 Aug 15, 2024 10:14 AM [facility] LIVER FUNCTION Specimen Type: SERUM No comment entered. Ordering Provider: COURTNEY FAROOQ Report Released Date/Time: Aug 08, 2024 01:49 PM Reporting Lab: [address] [address] Performing Lab: [address] [address] PROTEIN,TOTAL 6.2 g/dL 6.0-8.3 ALBUMIN 3.2 g/dL L 3.5-5.0 ALKALINE PHOSPHATASE 103 U/L 40-150 AST 17 U/L 5-34 ALT 25 U/L BILIRUBIN, TOTAL 0.9 mg/dL 0.2-1.2 Aug 15, 2024 10:14 AM [facility] HEMOGLOBIN A1C PANEL Specimen Type: BLOOD [...] 08, 2024 01:49 PM Reporting Lab: [address] [address] Performing Lab: [facility] [address] [facility] [address] HEMOGLOBIN A1C 6.7 H 4.0-5.6 Aug 15, 2024 10:14 AM [facility] TSH Specimen Type: SERUM No comment entered. Ordering Provider: COURTNEY FAROOQ Report Released Date/Time: Aug 08, 2024 01:49 PM Reporting Lab: [facility] [address] [facility] [address] Performing Lab: [facility] [address] [facility] [address] TSH 1.84 u[IU]/mL 0.35-5.00 Aug 15, 2024 10:14 AM [facility] CALCIUM Specimen Type: SERUM No comment entered. Ordering Provider: COURTNEY FAROOQ Report Released Date/Time: Aug 08, 2024 01:49 PM Reporting Lab: [facility] [address] [facility] [address] Performing Lab: [facility] [address] [facility] [address] CALCIUM 8.5 mg/dL 8.5-10.2 Aug 15, 2024 10:14 AM [facility] CBC AND DIFF (AUTO) Specimen Type: BLOOD No comment entered. Ordering Provider: COURTNEY FAROOQ Report Released Date/Time: Aug 08, 2024 01:49 PM Reporting Lab: [facility] [address] [facility] [address] Performing Lab: [facility] [address] [facility] [address] WBC 7.54 10*3/uL 4.50-11.00 RBC 3.63 10*6/uL [...] 10*3/uL 0.00-0.00 Aug 15, 2024 10:14 AM [facility] URIC ACID Specimen Type: SERUM No comment entered. Ordering Provider: COURTNEY FAROOQ Report Released Date/Time: Aug 08, 2024 01:49 PM Reporting Lab: [facility] [address] [facility] [address] Performing Lab: [address] [address] URIC ACID 7.9 mg/dL H 3.5-7.2 Aug 15, 2024 10:14 AM [facility] VITAMIN D (25-OH) Specimen Type: SERUM No comment entered. Ordering Provider: COURTNEY FAROOQ Report Released Date/Time: Aug 08, 2024 01:49 PM Reporting Lab: [facility] [address] [facility] [address] Performing Lab: [address] [address] VITAMIN D (25-OH) <13 ng/mL L 20-50 [...] F acility Jun 03, 2023 08:58 AM [place]-TOBACCO QUIT 15 YRS OR MORE [facility] [...] Provider Source Jul 15, 2023 ADVANCE DIRECTIVE ROGRE PEDRAZA Jun 30, 2019 ADVANCE DIRECTIVE CASSIE POWELL [facility] Encounter Notes: All associated encounter notes This section contains the clinical notes associated to the Encounter. Date/Time Encounter Note(s) Provider Source Aug 14, 2024 12:00 PM NONVA CONSULT: LOCAL TITLE: COMMUNITY CARE-CONSULT RESULT NOTE STANDARD TITLE: NONVA CONSULT DATE OF NOTE: AUG 14, 2024@12:00 ENTRY DATE: SEP 14, 2024@13:09:14 AUTHOR: LIBAN TRIMBLE EXP COSIGNER: URGENCY: STATUS: COMPLETED VistA Imaging - Scanned Document SCANNED DOCUMENT SIGNATURE NOT REQUIRED Electronically Filed: 09/14/2024 by: LIBAN TRIMBLE MEDICAL PRICE ECONOMIST LIBAN TRIMBLE [facility]
--- OUTSIDE RECORDS SUMMARY | 2024-10-17 15:31 | XMS_ITS ---
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 Organization [facility] [place] Address [address] [place] [address] Care Team Providers Care Trigonometry Teacher Name Role Phone GURPREET PEREZ Primary [...] Harding's Name Patient's Relationship to Policy Harding [facility] (WNR) MEDICARE ADVANTAGE [facility] (WNR) Oct 25, 2011 [facility] [id number] FATEMEH GOMEZ PATIENT Selected Encounter This section includes the information on record at ID for the Encounter. Date/Time Encounter Type Encounter Description Reason Provider Source Oct 04, 2024 08:37 AM FIT SPECTACLES MULTIFOCAL OPTOMETRY ICD-10-CM Z46.0 Encounter for fit/adjst of spectacles and contact lenses JONATHAN MATAMOROS Encounter Template Text not used by ID Assessments - Encounter Diagnoses This section includes the primary and secondary diagnoses documented for the Encounter. Date/Time Primary/Secondary Diagnosis Diagnosis Name Provider Source Oct 04, 2024 08:37 AM PRIMARY Encounter for fit/adjst of spectacles and contact lenses MARHTA CISNEROS [facility] Plan of Treatment: Future Appointments (+ 6 months) and Future Tests (+/- 45 days) The Plan of Treatment section includes future care activities for the patient from all ID treatmentfacilities. This section includes future appointments and [...] of theEncounter. The data comes from all ID treatment facilities. Test Date/Time Test Type Test Details Facility Name Aug 28, 2024 04:23 PM Consult Order [facility] NON-SKILLED HOME HEALTH AIDE Cons Senior Human Resources Representative's [facility] Sep 20, 2024 10:06 AM Consult Order NUTRITION ASSESSMENT/EDUCATION/SPO PC OUTPT Cons Senior Human Resources Representative's [facility] Social History: Smoking Status (Most current) and Tobacco Use (All prior to encounter date) This section includes the most current, and the historical, smoking and tobacco- related health factors from the ID facility where the Encounter took place. Current Smoking Status This section includes the most current smoking, or tobacco-related health factor, from the ID facility where the Encounter took place. Date/Time Current Smoking Status Comment Facil ity Jun 03, 2023 08:58 AM VA-TOBACCO FORMER USER [facility] Tobacco Use History This section includes a history of the smoking, or tobacco-related health factors, that were collected on or before the date of the Encounter. The data comes from the ID facility where the Encounter took place. Date/Time Smoking Status/Tobacco Use Comment F acility Jun 03, 2023 08:58 AM ID-TOBACCO QUIT 15 YRS OR MORE [facility] Advance Directives: All historical and current Section Date Range: From patient's date of to the date document was created. This section includes ALL of a patient's completed or amended VA Advance and Rescinded Directives. The entries below indicate that a directive exists for the patient, but an actual copy is not included with this document. The data comes from all ID facilities. Date Advance Directives Provider Source Jul 15, 2023 ADVANCE DIRECTIVE DERRICK PEDRAZAAlo Louis Jun 30, 2019 ADVANCE DIRECTIVE CASSIE POWELL [facility] Encounter Notes: All associated encounter notes This section contains the clinical notes associated to the Encounter. Date/Time Encounter Note(s) Provider Source Oct 04, 2024 08:37 AM OPTOMETRY NOTE: LOCAL TITLE: OPTOMETRY NOTE STANDARD TITLE: OPTOMETRY NOTE DATE OF NOTE: OCT 04, 2024@08:37 ENTRY DATE: OCT 04, 2024@08:37:51 AUTHOR: PATRICIA KRAUSE EXP COSIGNER: URGENCY: STATUS: COMPLETED OPTOMETRY NOTE Has ADDENDA The quote provided below is for informational purposes only. Please verify prior to the creation of a purchase order. FATEMEH GOMEZ [id number] RX INFORMATION OD +1.00 -1.25 X100 Add:+2.75 Pzm:0.00 Dir: Prz2:0.00 Dir2: OS +1.00 -1.00 X90 Add:+2.75 Pzm:0.00 Dir: Prz2:0.00 Dir2: FITTING INFORMATION FPD:62.5 NPD:59.5 Glades:R: L: SEG HT:R:22 L:22 Tint:None Shade:None VA Billable Items FRAME: FX3 GUNMETAL 50-20-145 Right Lens: POLY VA PROGRESSIVE 1.586 POLY Left Lens: POLY VA PROGRESSIVE 1.586 POLY KLEAR ANTI-REFLECTIVE COATING CLIN items [employer] - AR Coating 0004 - Progressive - Glass Plastic Poly /mini KRAUSE FILLER SIFTER HELPER Signed: 10/04/2024 08:37 Receipt Acknowledged By: 10/04/2024 08:39 /mini Cisneros LPN Licensed Practical Nurse 10/04/2024 ADDENDUM STATUS: COMPLETED PDS glass curvature gauger fit 1 PAL eyeglasses on 10/03/2024. OPT HT entered consult(s) as requested for provider signature. /inge/ Martha Cisneros LPN Licensed Practical Nurse Signed: 10/04/2024 08:40 [facility]
--- OUTSIDE RECORDS SUMMARY | 2024-10-17 15:31 | XMS_ITS | Encounter Summary ---
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 ([place]) Organization [facility] ([place]) Address [address] [place] [address] Care Team Providers Care Instrument Mechanic Weapons System Name Role Phone GURPREET PEREZ Primary Care [...] Harding's Name Patient's Relationship to Policy Harding [facility] PL[facility] (WNR) MEDICARE ADVANTAGE [facility] (WNR) Oct 25, 2011 [facility] [id number] FATEMEH GOMEZ PATIENT Selected Encounter This section includes the information on record at ID for the Encounter. Date/Time Encounter Type Encounter Description Reason Pro vider Source Jul 31, 2024 12:00 PM Outpatient Encounter COMMUNITY [...] 20 appointments. The data comes from all [facility]. Appointment Date/Time Appointment Type Appointme nt Facility Name Aug 05, 2024 08:00 AM AMBULATORY - MEDICINE [facility] Aug 22, 2024 09:30 AM [facility]ATORY [facility] MEDICINE [facility] Aug 29, 2024 08:00 AM [facility] Sep 20, 2024 09:00 AM AMBULATORY - MEDICINE [facility] Oct 03, 2024 11:30 AM AMBULATORY MEDICINE [facility] Active, Pending, and Scheduled Orders This section includes a listing of several types of active, pending, and scheduled orders, including clinic medications orders, diagnostic test orders, procedure orders and consult orders; where the start date of the order is 45 days before the date of the Encounter or 45 days after the date of theEncounter. The data comes from all [facility]. Test Date/Time Test Type Test Details Facility Name Aug 28, 2024 04:23 PM Consult Order [facility] NON-SKILLED HOME HEALTH AIDE Cons Registered Vascular Technologist (Rvt)'s Choice [facility] Lab Results: +/- 30 days of the encounter This section includes the Chemistry and Hematology Lab Results on record with ID for the patient. Radiology Reports and Pathology Reports are provided separately, in subsequent sections. Lab Results This section contains the Chemistry/Hematology Results that were resulted 30 days before or 30 daysafter the date of the Encounter. Date/Time Source Result Type Result - Unit Interpretation Reference Range Comment Aug 22, 2024 10:26 AM [facility] FOLATE (OX) Specimen Type: SERUM No comment entered. Ordering Provider: COURTNEY FAROOQ Report Released Date/Time: Aug 22, 2024 10:17 AM Reporting Lab: [facility] [address] [facility] [address] Performing Lab: [facility] [address] [facility] [address] FOLATE (WROX) 3.90 ng/mL L >5.2 Aug 22, 2024 10:26 AM [facility] RETICULOCYTES Specimen Type: BLOOD Comment: Smear reviewed, auto CBC w/Diff accepted. Ordering Provider: COURTNEY FAROOQ Report Released Date/Time: Aug 22, 2024 10:17 AM Reporting Lab: [address] [address] Performing Lab: [address] [address] RETIC % 2.6 H 0.6-2.0 RETIC, ABS 91.6 10*3/uL H 30.0-90.0 RET-HE % 29.6 27.9-42.0 Aug 22, 2024 10:26 AM [facility] IRON & TIBC PANEL Specimen Type: SERUM No comment entered. Ordering Provider: COURTNEY FAROOQ Report Released Date/Time: Aug 22, 2024 10:17 AM Reporting Lab: [address] [address] Performing Lab: [address] [address] TIBC 210 ug/dL 204-475 IRON 43 ug/dL 40-160 Transferrin Saturation 20.5 20.0-50.0 Transferrin (TRF) 159 mg/dL L 200-360 Aug 22, 2024 10:26 AM [facility] CBC AND DIFF (AUTO) Specimen Type: BLOOD Comment: Smear reviewed, auto CBC w/Diff accepted. Ordering Provider: COURTNEY FAROOQ Report Released Date/Time: Aug 22, 2024 10:17 AM Reporting Lab: [address] [address] Performing Lab: [address] [address] WBC 7.35 10*3/uL 4.50-11.00 RBC 3.51 10*6/uL [...] H 0.00-0.00 Aug 22, 2024 10:26 AM [facility] FERRITIN Specimen Type: SERUM No comment entered. Ordering Provider: COURTNEY FAROOQ Report Released Date/Time: Aug 22, 2024 10:17 AM Reporting Lab: [address] [address] Performing Lab: [address] [address] FERRITIN 1130 ng/mL H 20-300 Aug 22, 2024 10:26 AM [facility] VITAMIN B12 Specimen Type: SERUM No comment entered. Ordering Provider: COURTNEY FAROOQ Report Released Date/Time: Aug 22, 2024 10:17 AM Reporting Lab: [address] [address] Performing Lab: [address] [address] VITAMIN B12 378 pg/mL 200-900 Aug 22, 2024 10:26 AM [facility] BASIC METABOLIC PANEL (non-fasting) Spe cimen Type: SERUM No comment entered. Ordering Provider: COURTNEY FAROOQ Report Released Date/Time: Aug 22, 2024 10:17 AM Reporting Lab: [address] [address] Performing Lab: [address] [place] [address] UREA NITROGEN 12 mg/dL 7-25 GLUCOSE 104 mg/dL H 65-100 SODIUM 136 mmol/L 135-145 POTASSIUM 4.7 mmol/L 3.5-5.0 CHLORIDE 106 mmol/L 100-110 CO2 18 meq/L L 20-30 CREATININE, Serum 1.15 mg/dL 0.50-1.40 eGFR(CKD-EPI 2020) 65 mL/min >60 Aug 22, 2024 10:26 AM [facility] LIVER FUNCTION Specimen Type: SERUM No comment entered. Ordering Provider: COURTNEY FAROOQ Report Released Date/Time: Aug 22, 2024 10:17 AM Reporting Lab: [address] [address] Performing Lab: [address] [address] PROTEIN,TOTAL 6.0 g/dL 6.0-8.3 ALBUMIN 3.1 g/dL L 3.5-5.0 ALKALINE PHOSPHATASE 138 U/L 40-150 AST 27 U/L 5-34 ALT 36 U/L BILIRUBIN, TOTAL 1.0 mg/dL 0.2-1.2 Aug 16, 2024 01:58 PM [facility] URINALYSIS Specimen Type: URINE Comment: If Glucose = >500 and Ketones are positive, please alert the Physician. Ordering Provider: COURTNEY FAROOQ Report Released Date/Time: Aug 08, 2024 01:49 PM Reporting Lab: [address] [address] Performing Lab: [address] [address] UA COLOR Light-Yellow Yellow UA APPEARANCE Clear Clear UA GLUCOSE Normal mg/dL Negative UA KETONES NEGATIVE mg/dL Negative UA BLOOD NEGATIVE mg/dL Negative UA PROTEIN 10 mg/dL Negative UA NITRITE NEGATIVE mg/dL Negative UA BILIRUBIN NEGATIVE mg/dL Negative UA SPECIFIC GRAVITY 1.017 1.016-1.02 2 UA pH 6.0 5.0-9.0 UA UROBILINOGEN Normal mg/dL <2.0 UA LEUKOCYTE TRACE Negative Aug 16, 2024 01:58 PM [facility] MICROALBUMIN CREATININE RATIO PANEL Specimen Type: URINE No comment entered. Ordering Provider: COURTNEY FAROOQ Report Released Date/Time: Aug 08, 2024 01:49 PM Reporting Lab: [facility] [address] [facility] [address] Performing Lab: [address] [address] MICROALBUMIN/CR EATININE RATIO 7.3 mg/g 0-29.9 MICROALBUMIN,QU ANTITATIVE 0.8 mg/dL RR UNAVAIL CREATININE URINE 109.38 mg/dL Aug 16, 2024 01:58 PM [facility] MICROSCOPIC AUTOMATED, URINE Specimen Type: URINE Comment: If Glucose = >500 and Ketones are positive, please alert the Physician. Ordering Provider: COURTNEY FAROOQ Report Released Date/Time: Aug 08, 2024 01:49 PM Reporting Lab: [address] [address] Performing Lab: [address] [address] UA WBC 0-5 /[HPF] 0-5 UA BACTERIA 1+ /[HPF] NoneObs UA MUCUS FEW /[LPF] Trace UA HYALINE CASTS 2-4 /[LPF] 0-2 UA RBC 3-5 /[HPF] 0-3 Aug 15, 2024 10:14 AM [facility] BASIC METABOLIC PANEL (fasting) Specimen Type: SERUM No comment entered. Ordering Provider: COURTNEY FAROOQ Report Released Date/Time: Aug 08, 2024 01:49 PM Reporting Lab: [address] [address] Performing Lab: [address] [address] UREA NITROGEN 28 mg/dL H 7-25 GLUCOSE 98 mg/dL 65-100 SODIUM 133 mmol/L L 135-145 POTASSIUM 5.3 mmol/L H 3.5-5.0 CHLORIDE 106 mmol/L 100-110 CO2 15 meq/L L 20-30 CREATININE, Serum 1.31 mg/dL 0.50-1.40 eGFR(CKD-EPI 2020) 55 mL/min L >60 Aug 15, 2024 10:14 AM [facility] LIPID PANEL FASTING Specimen Type: SERUM No comment entered. Ordering Provider: COURTNEY FAROOQ Report Released Date/Time: Aug 08, 2024 01:49 PM Reporting Lab: [address] [address] Performing Lab: [address] [address] CHOLESTEROL 69 mg/dL TRIGLYCERIDE 88 mg/dL 0-150 LDL calculated 16 mg/dL 0-129 CHOL/HDL 2.0 HDL CHOLESTEROL 35 mg/dL L 40-60 Aug 15, 2024 10:14 AM [facility] LIVER FUNCTION Specimen Type: SERUM No comment entered. Ordering Provider: COURTNEY FAROOQ Report Released Date/Time: Aug 08, 2024 01:49 PM Reporting Lab: [address] [address] Performing Lab: [address] [address] PROTEIN,TOTAL 6.2 g/dL 6.0-8.3 ALBUMIN 3.2 g/dL L 3.5-5.0 ALKALINE PHOSPHATASE 103 U/L 40-150 AST 17 U/L 5-34 ALT 25 U/L BILIRUBIN, TOTAL 0.9 mg/dL 0.2-1.2 Aug 15, 2024 10:14 AM [facility] HEMOGLOBIN A1C PANEL Specimen Type: BLOOD [...] Aug 08, 2024 01:49 PM Reporting Lab: [address] [address] Performing Lab: [facility] [address] [facility] [address] HEMOGLOBIN A1C 6.7 H 4.0-5.6 Aug 15, 2024 10:14 AM [facility] TSH Specimen Type: SERUM No comment entered. Ordering Provider: COURTNEY FAROOQ Report Released Date/Time: Aug 08, 2024 01:49 PM Reporting Lab: [facility] [address] [facility] [address] Performing Lab: [facility] [address] [facility] [address] TSH 1.84 u[IU]/mL 0.35-5.00 Aug 15, 2024 10:14 AM [facility] CBC AND DIFF (AUTO) Specimen Type: BLOOD No comment entered. Ordering Provider: COURTNEY FAROOQ Report Released Date/Time: Aug 08, 2024 01:49 PM Reporting Lab: [facility] [address] [facility] [address] Performing Lab: [address] [address] WBC 7.54 10*3/uL 4.50-11.00 RBC 3.63 10*6/uL [...] 10*3/uL 0.00-0.00 Aug 15, 2024 10:14 AM [facility] CALCIUM Specimen Type: SERUM No comment entered. Ordering Provider: COURTNEY FAROOQ Report Released Date/Time: Aug 08, 2024 01:49 PM Reporting Lab: [address] [address] Performing Lab: [address] [address] CALCIUM 8.5 mg/dL 8.5-10.2 Aug 15, 2024 10:14 AM [facility] URIC ACID Specimen Type: SERUM No comment entered. Ordering Provider: COURTNEY FAROOQ Report Released Date/Time: Aug 08, 2024 01:49 PM Reporting Lab: [address] [address] Performing Lab: [address] [address] URIC ACID 7.9 mg/dL H 3.5-7.2 Aug 15, 2024 10:14 AM [facility] VITAMIN D (25-OH) Specimen Type: SERUM No comment entered. Ordering Provider: COURTNEY FAROOQ Report Released Date/Time: Aug 08, 2024 01:49 PM Reporting Lab: [address] [address] Performing Lab: [address] [address] VITAMIN D (25-OH) <13 ng/mL L 20-50 [...] 03, 2023 08:58 AM VA-TOBACCO FORMER USER [facility] Tobacco Use History This section includes a history of the smoking, or tobacco-related health factors, that were collected on or before the date of the Encounter. The data comes from the ID facility where the Encounter took place. Date/Time Smoking Status/Tobacco Use Comment F acility Jun 03, 2023 08:58 AM ID-TOBACCO QUIT 15 YRS OR MORE [facility] Advance Directives: All historical and current Section Date Range: From patient's date of to the date document was created. This section includes ALL of a patient's completed or amended ID Advance and Rescinded Directives. The entries below indicate that a directive exists for the patient, but an actual copy is not included with this document. The data comes from all ID facilities. Date Advance Directives Provider Source Jul 15, 2023 ADVANCE DIRECTIVE ROGER PEDRAZA Jun 30, 2019 ADVANCE DIRECTIVE CASSIE POWELL [facility] Encounter Notes: All associated encounter notes This section contains the clinical notes associated to the Encounter. Date/Time Encounter Note(s) Provider Source Jul 31, 2024 12:00 PM NONVA CONSULT: LOCAL TITLE: COMMUNITY CARE-CONSULT RESULT NOTE STANDARD TITLE: NONVA CONSULT DATE OF NOTE: JUL 31, 2024@12:00 ENTRY DATE: SEP 06, 2024@12:56:43 AUTHOR: LIBAN TRIMBLE EXP COSIGNER: URGENCY: STATUS: COMPLETED VistA Imaging - Scanned Document SCANNED DOCUMENT SIGNATURE NOT REQUIRED Electronically Filed: 09/06/2024 by: LIBAN TRIMBLE MEDICAL COMPOSITION MIXER LIBAN TRIMBLE [facility]
[2024-10-17 16:00] VITALS: BP 145/60; PULSE 77; RESP 18; TEMP 36.3; O2SAT 91
--- NOTE | 2024-10-17 17:28 | PC.NURSE ---
pt brought in via EMS s/p fall on thinners- pt refuses CT imaging, and bloodwork. LIAS Mejias notifed- pt to samantha DE LA CRU[facility]
[2024-10-17 17:32] VITALS: BP 145/60; PULSE 77; RESP 18; TEMP 36.3; O2SAT 91
[2024-10-17 17:43] LABS: Influenza A PCR NEGATIVE (Negative); Influenza B PCR NEGATIVE (Negative); Resp Syncy Virus RNA Qual PCR NEGATIVE (Negative); SARS COV2 PCR INHOUSE NEGATIVE (Negative)
== END 2024-10-17 17:34 | disposition left against medical advice (07) ==
PROVIDERS: Nurse Practitioner Family; Emergency Provider Student in an Organized Health Care Education/Training Program; PCP Internal Medicine
DX: S09.90XA Unspecified injury of head, initial encounter (principal); R09.02 Hypoxemia; W01.0XXA Fall on same level from slipping, tripping and stumbling without subsequent striking against object, initial encounter; Y93.89 Activity, other specified; Y92.89 Other specified places as the place of occurrence of the external cause; Y99.8 Other external cause status; Z03.818 Encounter for observation for suspected exposure to other biological agents ruled out
CPT/HCPCS: 0241U; 71046; 99283; 99284

== ENCOUNTER 2025-06-20 12:44 | Outpatient (AMB) | payer MEDICARE, SELFPAY ==
--- OUTSIDE RECORDS SUMMARY | 2024-08-03 06:30 | XMS_ITS | Encounter Summary ---
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 [place] [facility] [place] [facility] [place] Address [address] [place] [id number] Care Team Providers Care Movement Therapist Name Role Phone GURPREET PEREZ Primary Care Provide r Unavailable Insurance Providers: All historical and current Section Date Range: From patient's date of to the date document was created. This section includes the names of all active insurance providers for the patient. Insurance Provider Type of Coverage Plan Name Start of Policy Coverage End of Policy Coverage Group Number Member ID Insurance Provider's Telephone Number Policy Harding's Name Patient's Relationship to Policy Harding [facility] (WNR) MEDICARE ADVANTAGE [facility] (WNR) Oct 25, 2011 [facility] [id number] PATIENT Selected Encounter This section includes the information on record at [place] for the Encounter. Date/Time Encounter Type Encounter Description Reason Pro vider Source Aug 03, 2024 10:30 AM Outpatient Encounter PRIMARY CARE/MEDICINE IHE Encounter Template Text not used by VA Plan of Treatment: Future Appointments (+ 6 months) and Future Tests (+/- 45 days) The Plan of Treatment section includes future care activities for the patient from all VA treatmentfacilities. This section includes future appointments and future orders which are active, pending or scheduled. Future Appointments This section includes appointments that were scheduled to occur 6 months from the date of the Encounter, up to a maximum of 20 appointments. The data comes from all [place] treatment facilities. Appointment Date/Time Appointment Type Appointme nt Facility Name Aug 05, 2024 08:00 AM AMBULATORY - MEDICINE [facility] [place] [facility] Aug 22, 2024 09:30 AM [facility]ICINE [facility] Aug 29, 2024 08:00 AM AMBULATORY - MEDICINE [facility] [place] [facility] Sep 20, 2024 09:00 AM AM[facility]ULATORY - MEDICINE [facility] Oct 03, 2024 11:30 AM AMBULATORY - MEDICINE [facility] [place] [facility] Oct 31, 2024 08:00 AM AMBULATORY - MEDICINE [facility] [place] [facility] Nov 15, 2024 09:00 AM [facility]ATORY - MEDICINE [facility] Nov 22, 2024 09:00 AM AMBULATORY - MEDICINE [place] [facility] [place] [facility] Dec 29, 2024 08:30 AM AMBULATORY - REHAB MEDICIN E [facility] [place] [facility] Jan 09, 2025 02:00 PM AMBULATORY - REHAB MEDICIN E [facility] [place] [facility] Jan 10, 2025 10:00 AM AMBULATORY - MEDICINE [place] [facility] [place] [facility] Jan 24, 2025 08:00 AM AMBULATORY - MEDICINE [place] [facility] [place] [facility] Lab Results: +/- 30 days of the encounter This section includes the Chemistry and Hematology Lab Results on record with [place] for the patient. Radiology Reports and Pathology Reports are provided separately, in subsequent sections. Lab Results This section contains the Chemistry/Hematology Results that were resulted 30 days before or 30 daysafter the date of the Encounter. Date/Time Source Result Type Result - Unit Interpretation Reference Range Specimen Type Comment Aug 22, 2024 10:26 AM [place] FOLATE (OX) SERUM Specimen Type: SERUM No comment entered. Ordering Provider: COURTNEY FAROOQ Report Released Date/Time: Aug 22, 2024 10:17 AM Reporting Lab: [place] [facility] [place] [facility] [address] [facility] [address] Performing Lab: [place] [facility] [place] [facility] [address] [facility] [address] FOLATE (WROX) 3.90 ng/mL L >5.2 Aug 22, 2024 10:26 AM [place] RETICULOCYTES BLOOD Specimen Type: BLOOD Comment: Smear reviewed, auto CBC w/Diff accepted. Ordering Provider: COURTNEY FAROOQ Report Released Date/Time: Aug 22, 2024 10:17 AM Reporting Lab[facility] [address] [facility] [address] Performing Lab: [facility] [address] [address] RETIC % 2.6 H 0.6-2.0 RETIC, ABS 91.6 10*3/uL H 30.0-90.0 RET-HE % 29.6 27.9-42.0 Aug 22, 2024 10:26 AM [place] IRON & TIBC PANEL SERUM Specimen Type: SERUM No comment entered. Ordering Provider: COURTNEY FAROOQ Report Released Date/Time: Aug 22, 2024 10:17 AM Reporting Lab: [facility] [address] [address] Per[facility]: [facility] [address] [address] TIBC 210 ug/dL 204-475 IRON 43 ug/dL 40-160 Transferrin Saturation 20.5 20.0-50.0 Transferrin (TRF) 159 mg/dL L 200-360 Aug 22, 2024 10:26 AM [place] FERRITIN SERUM Sp ecimen Type: SERUM No comment entered. Ordering Provider: COURTNEY FAROOQ Report Released Date/Time: Aug 22, 2024 10:17 AM Reporting Lab: [facility] [address] [address] Performing Lab: [facility] [address] FERRITIN 1130 ng/mL H 20-300 Aug 22, 2024 10:26 AM [place] VITAMIN B12 SERUM Specimen Type: SERUM No comment entered. Ordering Provider: COURTNEY FAROOQ Report Released Date/Time: Aug 22, 2024 10:17 AM Reporting Lab: [facility] [address] [address] Per[facility]: [facility] [address] [address] VITAMIN B12 378 pg/mL 200-900 Aug 22, 2024 10:26 AM [place] CBC AND DIFF (AUTO) BLOOD Specimen Ty pe: BLOOD Comment: Smear reviewed, auto CBC w/Diff accepted. Ordering Provider: COURTNEY FAROOQ Report Released Date/Time: Aug 22, 2024 10:17 AM Reporting Lab: [facility] [address] [facility] [address] Performing Lab: [facility] [address] [facility] [address] WBC 7.35 10*3/uL 4.50-11.00 RBC 3.51 10*6/uL L 4.23-5.66 HGB 11.1 g/dL L 12.8-17 HCT 32.1 L 39.2-50.4 MCV 91.5 fL 82-99 MCHC 34.6 g/dL 30.8-35.1 PLT 117 10*3/uL L 140-360 RDW-CV 13.0 12.0-16.0 MONO, ABS 0.71 10*3/uL 0.30-1.10 MCH 31.6 pg 26.2-32.6 NEUT % 63.2 43.7-75.8 LYMPH % 16.9 14.0-42.3 MONO % 9.7 5.1-13.7 EOS % 2.9 0.4-6.8 BASO % 0.5 0.1-2.0 NEUT, ABS 4.65 10*3/uL 2.20-7.60 LYMPH, ABS 1.24 10*3/uL 1.00-3.20 EOS, ABS 0.21 10*3/uL 0.03-0.44 BASO, ABS 0.04 10*3/uL 0.01-0.13 IMMATURE GRAN % 6.8 H 0.0-0.7 IMMATURE GRAN, ABS 0.50 10*3/uL H 0.00-0.0 6 NRBC % 0.4 H 0.0-0.0 NRBC, ABS 0.03 10*3/uL H 0.00-0.00 Aug 22, 2024 10:26 AM [place] BASIC METABOLIC PANEL (non-fasting) SERUM Specimen Type: SERUM No comment entered. Ordering Provider: COURTNEY FAROOQ Report Released Date/Time: Aug 22, 2024 10:17 AM Reporting Lab: [facility] [address] [facility] [address] Performing Lab: [address] [address] UREA NITROGEN 12 mg/dL 7-25 GLUCOSE 104 mg/dL H 65-100 SODIUM 136 mmol/L 135-145 POTASSIUM 4.7 mmol/L 3.5-5.0 CHLORIDE 106 mmol/L 100-110 CO2 18 meq/L L 20-30 CREATININE, Serum 1.15 mg/dL 0.50-1.40 eGFR(CKD-EPI 2020) 65 mL/min >60 Aug 22, 2024 10:26 AM [place] LIVER FUNCTION SERUM Specimen Type: SERUM No comment entered. Ordering Provider: COURTNEY FAROOQ Report Released Date/Time: Aug 22, 2024 10:17 AM Reporting Lab: [address] [address] Performing Lab: [address] [address] PROTEIN,TOTAL 6.0 g/dL 6.0-8.3 ALBUMIN 3.1 g/dL L 3.5-5.0 ALKALINE PHOSPHATASE 138 U/L 40-150 AST 27 U/L 5-34 ALT 36 U/L BILIRUBIN, TOTAL 1.0 mg/dL 0.2-1.2 Aug 16, 2024 01:58 PM [facility] MICROALBUMIN CREATININE RATIO PANEL URINE Spe cimen Type: URINE No comment entered. Ordering Provider: COURTNEY FAROOQ Report Released Date/Time: Aug 08, 2024 01:49 PM Reporting Lab: [address] [address] Performing Lab: [address] [address] MICROALBUMIN/CREATININE RATIO 7.3 mg/g 0 -29.9 MICROALBUMIN,QUANTITATIVE 0.8 mg/dL RR U NAVAIL CREATININE URINE 109.38 mg/dL Aug 16, 2024 01:58 PM [facility] MICROSCOPIC AUTOMATED, URINE URINE Specimen T ype: URINE Comment: If Glucose = >500 and Ketones are positive, please alert the Physician. Ordering Provider: COURTNEY FAROOQ Report Released Date/Time: Aug 08, 2024 01:49 PM Reporting Lab: [facility] [address] [facility] [address] Performing Lab: [address] [address] UA WBC 0-5 /[HPF] 0-5 UA BACTERIA 1+ /[HPF] NoneObs UA MUCUS FEW /[LPF] Trace UA HYALINE CASTS 2-4 /[LPF] 0-2 UA RBC 3-5 /[HPF] 0-3 Aug 16, 2024 01:58 PM [facility] URINALYSIS URINE Specimen Type: URINE Comment: If Glucose = >500 and Ketones are positive, please alert the Physician. Ordering Provider: COURTNEY FAROOQ Report Released Date/Time: Aug 08, 2024 01:49 PM Reporting Lab: [address] [address] Performing Lab: [address] [address] UA COLOR Light-Yellow Yellow UA APPEARANCE Clear Clear UA GLUCOSE Normal mg/dL Negative UA KETONES NEGATIVE mg/dL Negative UA BLOOD NEGATIVE mg/dL Negative UA PROTEIN 10 mg/dL Negative UA NITRITE NEGATIVE mg/dL Negative UA BILIRUBIN NEGATIVE mg/dL Negative UA SPECIFIC GRAVITY 1.017 1.016-1.022 UA pH 6.0 5.0-9.0 UA UROBILINOGEN Normal mg/dL <2.0 UA LEUKOCYTE TRACE Negative Aug 15, 2024 10:14 AM [facility] BASIC METABOLIC PANEL (fasting) SERUM Specime n Type: SERUM No comment entered. Ordering Provider: COURTNEY FAROOQ Report Released Date/Time: Aug 08, 2024 01:49 PM Reporting Lab: [address] [address] Performing Lab: [address] [address] UREA NITROGEN 28 mg/dL H 7-25 GLUCOSE 98 mg/dL 65-100 SODIUM 133 mmol/L L 135-145 POTASSIUM 5.3 mmol/L H 3.5-5.0 CHLORIDE 106 mmol/L 100-110 CO2 15 meq/L L 20-30 CREATININE, Serum 1.31 mg/dL 0.50-1.40 eGFR(CKD-EPI 2020) 55 mL/min L >60 Aug 15, 2024 10:14 AM [facility] LIPID PANEL FASTING SERUM Specimen Type: SERU M No comment entered. Ordering Provider: COURTNEY FAROOQ Report Released Date/Time: Aug 08, 2024 01:49 PM Reporting Lab: [facility] [address] [facility] [address] Performing Lab: [address] [address] CHOLESTEROL 69 mg/dL TRIGLYCERIDE 88 mg/dL 0-150 LDL calculated 16 mg/dL 0-129 CHOL/HDL 2.0 HDL CHOLESTEROL 35 mg/dL L 40-60 Aug 15, 2024 10:14 AM [facility] LIVER FUNCTION SERUM Specimen Type: SERUM No comment entered. Ordering Provider: COURTNEY FAROOQ Report Released Date/Time: Aug 08, 2024 01:49 PM Reporting Lab: [facility] [address] [facility] [address] Performing Lab: [facility] [address] [facility] [address] PROTEIN,TOTAL 6.2 g/dL 6.0-8.3 ALBUMIN 3.2 g/dL L 3.5-5.0 ALKALINE PHOSPHATASE 103 U/L 40-150 AST 17 U/L 5-34 ALT 25 U/L BILIRUBIN, TOTAL 0.9 mg/dL 0.2-1.2 Aug 15, 2024 10:14 AM [facility] HEMOGLOBIN A1C PANEL BLOOD Specimen Type: BLO OD Comment: Values obtained from A1C measurements can vary. For atypical A1C assays, a reported value of 7.0 could actually be between 6.72 and 7.28 if measured by a reference method. A reported value of 9.0 could actually be between 8.73 and 9.27. Ref: http://www.ngsp.org/CAPdata.asp Ordering Provider: COURTNEY FAROOQ Report Released Date/Time: Aug 08, 2024 01:49 PM Reporting Lab: [place] [facility] [place] [facility] [address] [facility] [address] Performing Lab: [place] [facility] [place] [facility] [address] [facility] [address] HEMOGLOBIN A1C 6.7 H 4.0-5.6 Aug 15, 2024 10:14 AM [facility] TSH SERUM Specimen Type: SERUM No comment entered. Ordering Provider: COURTNEY FAROOQ Report Released Date/Time: Aug 08, 2024 01:49 PM Reporting Lab: [facility] [place] [facility] [address] [facility] [address] Performing Lab: [place] [facility] [place] [address] [address] TSH 1.84 u[IU]/mL 0.35-5.00 Aug 15, 2024 10:14 AM [facility] CALCIUM SERUM Specimen Type: SERUM No comment entered. Ordering Provider: COURTNEY FAROOQ Report Released Date/Time: Aug 08, 2024 01:49 PM Reporting Lab: [place] [facility] [place] [address] [address] Performing Lab: [place] [facility] [place] [address] [address] CALCIUM 8.5 mg/dL 8.5-10.2 Aug 15, 2024 10:[address] [facility] [address] [facility] URIC ACID SERUM Specimen Type: SERUM No comment entered. Ordering Provider: COURTNEY FAROOQ Report Released Date/Time: Aug 08, 2024 01:49 PM Reporting Lab: [facility] [place] [facility] [address] [facility] [address] Performing Lab: [place] [facility] [place] [address] [address] URIC ACID 7.9 mg/dL H 3.5-7.2 Aug 15, 2024 10:14 AM [facility] VITAMIN D (25-OH) SERUM Specimen Type: SERUM No comment entered. Ordering Provider: COURTNEY FAROOQ Report Released Date/Time: Aug 08, 2024 01:49 PM Reporting Lab: [facility] [address] [facility] [address] Performing Lab: [facility] [address] [facility] [address] VITAMIN D (25-OH) <13 ng/mL L 20-50 Aug 15, 2024 10:14 AM [facility] CBC AND DIFF (AUTO) BLOOD Specimen Type: BLOO D No comment entered. Ordering Provider: COURTNEY FAROOQ Report Released Date/Time: Aug 08, 2024 01:49 PM Reporting Lab: [facility] [address] [facility] [address] Performing Lab: [address] [address] WBC 7.54 10*3/uL 4.50-11.00 RBC 3.63 10*6/uL L 4.23-5.66 HGB 11.7 g/dL L 12.8-17 HCT 33.2 L 39.2-50.4 MCV 91.5 fL 82-99 MCHC 35.2 g/dL H 30.8-35.1 PLT 39 10*3/uL L 140-360 RDW-CV 12.3 12.0-16.0 MONO, ABS 0.37 10*3/uL 0.30-1.10 MCH 32.2 pg 26.2-32.6 NEUT % 75.5 43.7-75.8 LYMPH % 16.3 14.0-42.3 MONO % 4.9 L 5.1-13.7 EOS % 2.3 0.4-6.8 BASO % 0.5 0.1-2.0 NEUT, ABS 5.69 10*3/uL 2.20-7.60 LYMPH, ABS 1.23 10*3/uL 1.00-3.20 EOS, ABS 0.17 10*3/uL 0.03-0.44 BASO, ABS 0.04 10*3/uL 0.01-0.13 IMMATURE GRAN % 0.5 0.0-0.7 IMMATURE GRAN, ABS 0.04 10*3/uL 0.00-0.0 6 NRBC % 0.0 0.0-0.0 NRBC, ABS 0.00 10*3/uL 0.00-0.00 Advance Directives: All historical and current Section Date Range: From patient's date of to the date document was created. This section includes ALL of a patient's completed or amended [place] Advance and Rescinded Directives. The entries below indicate that a directive exists for the patient, but an actual copy is not included with this document. The data comes from all [place] facilities. Date Advance Directives Provider Source Jul 15, 2023 ADVANCE DIRECTIVE ROGER PEDRAZA Jun 30, 2019 ADVANCE DIRECTIVE CASSIE POWELL [place] [facility] Encounter Notes: All associated encounter notes This section contains the clinical notes associated to the Encounter. Date/Time Encounter Note(s) Provider Source Aug 01, 2024 08:08 AM ADDENDUM: LOCAL TITLE: Addendum STANDARD TITLE: ADDENDUM DATE OF NOTE: AUG 01, 2024@08:08:42 ENTRY DATE: AUG 01, 2024@08:08:42 AUTHOR: MARY MOTA COSIGNER: URGENCY: STATUS: COMPLETED Hospitalization records available in covering PACT 10 rightfax folder for review. /inge/ Mary Mota RN Registered Nurse Signed: 08/01/2024 08:09 Receipt Acknowledged By: 08/01/2024 08:52 /es/ SANTY KIRBY RN REGISTERED NURSE 08/01/2024 08:14 /es/ RAMON GREEN LPN PACT 10 --- Original Document --- 07/31/24 ADMINISTRATIVE NOTE: ARTURO spoke with household member. Cancelled Appt for 08/03/24 is for hospital f/u and needs to be seen very soon. Please advise /es/ JUAN MORRIS Signed: 07/31/2024 10:39 Receipt Acknowledged By: 07/31/2024 13:10 /inge/ MAXIMILIANO KUMARI LPN LPN * AWAITING SIGNATURE * JANINA ROEW 07/31/2024 ADDENDUM STATUS: COMPLETED RAFITACELESTINOTREASURE THE PATIENT /inge/ MAXIMILIANO KUMARI LPN LPN Signed: 07/31/2024 13:10 07/31/2024 ADDENDUM STATUS: COMPLETED [place] scheduled with Pact Team 10 for Wednesday08/04/24 @ 1030. Records requested from [facility] /inge/ JUAN MORRIS Signed: 07/31/2024 14:29 MARY MOTA Jul 31, 2024 10:37 AM ADMINISTRATIVE NOT E: LOCAL TITLE: ADMINISTRATIVE NOTE STANDARD TITLE: ADMINISTRATIVE NOTE DATE OF NOTE: JUL 31, 2024@10:37 ENTRY DATE: JUL 31, 2024@10:37:51 AUTHOR: JUAN JESUS EXP COSIGNER: URGENCY: STATUS: COMPLETED ADMINISTRATIVE NOTE Has ADDENDA ARTURO spoke with household member. Cancelled Appt for 08/03/24 is for hospital f/u and needs to be seen very soon. Please advise /mini MORRIS Signed: 07/31/2024 10:39 Receipt Acknowledged By: 07/31/2024 13:10 /inge/ MAXIMILIANO KUMARI LPN LPN 08/01/2024 10:42 /inge/ JANINA ROWE RN REGISTERED NURSE 07/31/2024 ADDENDUM STATUS: COMPLETED [place]HE[place] THE PATIENT /inge/ MAXIMILIANO KUMARI LPN LPN Signed: 07/31/2024 13:10 07/31/2024 ADDENDUM STATUS: COMPLETED scheduled with Pact Team 10 for Wednesday08/04/24 @ 1030. Records requested from [facility] /mini MORRIS Signed: 07/31/2024 14:29 08/01/2024 ADDENDUM STATUS: COMPLETED Hospitalization records available in covering PACT 10 rightfax folder for review. /mini Mota RN Registered Nurse Signed: 08/01/2024 08:09 Receipt Acknowledged By: 08/01/2024 08:52 /es/ SANTY KIRBY RN REGISTERED NURSE 08/01/2024 08:14 /es/ RAMON GREEN LPN PACT 10 JUAN [place]
--- OUTSIDE RECORDS SUMMARY | 2024-08-22 05:30 | XMS_ITS | Encounter Summary ---
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 [place] [facility] [place] [place] Address [address] [place] [address] Care Team Providers Care Circus Supervisor Name Role Phone GURPREET PEREZ Primary Care [...] Harding's Name Patient's Relationship to Policy Harding [facility] (WNR) MEDICARE ADVANTAGE [facility] (R) Oct 25, 2011 [facility] [id number] PATIENT Selected Encounter This section includes the information on record at [place] for the Encounter. Date/Time Encounter Type Encounter Description Reason Provider Source Aug 22, 2024 09:30 AM OFFICE O/P EST LOW 20 MIN PRIMARY CARE/MEDICINE ICD-10-CM A41.9 Sepsis, unspecified organism COURTNEY FAROOQ Encounter Template Text not used by [place] Assessments - Encounter Diagnoses This section includes the primary and secondary diagnoses documented for the Encounter. Date/Time Primary/Secondary Diagnosis Diagnosis Name Provider Source Aug 22, 2024 10:21 AM PRIMARY Sepsis, unspecified organism COURTNEY FAROOQ Plan of Treatment: Future Appointments (+ 6 months) and Future Tests (+/- 45 days) The Plan of Treatment section includes future care activities for the patient from all [place] treatment[facility] hospitalities. This section includes future appointments and future orders which are active, pending or scheduled. Future Appointments This section includes appointments that were scheduled to occur 6 months from the date of the Encounter, up to a maximum of 20 appointments. The data comes from all [place] treatment facilities. Appointment Date/Time Appointment Type Appointme nt Facility Name Aug 29, 2024 08:00 AM [place]ORY [place] [facility] [place] [facility] Sep 20, 2024 09:00 AM AMBULATORY - MEDICINE [facility] Oct 03, 2024 11:30 AM [place] [facility] [place] [facility] Oct 31, 2024 08:00 AM [place] [facility] [place] [facility] Nov 15, 2024 09:00 AM AMBULATORY - MEDICINE [facility] Nov 22, 2024 09:00 AM [place] [facility] [place] [facility] Dec 29, 2024 08:30 AM AMBULATORY - [place]ICIN [place] [facility] [place] [facility] Jan 09, 2025 02:00 PM AMBULATORY - [place] MEDICIN [place] [facility] [place] [facility] Jan 10, 2025 10:00 AM [place] [facility] [place] [facility] Jan 24, 2025 08:00 AM [place] [facility] [place] [facility] Lab Results: +/- 30 days of the encounter This section includes the Chemistry and Hematology Lab Results on record with [place] for the patient. Radiology Reports and Pathology Reports are provided separately, in subsequent sections. Lab Results This section contains the Chemistry/Hematology Results that were resulted 30 days before or 30 daysafter the date of the Encounter. Date/Time Source Result Type Result - Unit Interpretation Reference Range Specimen Type Comment Aug 22, 2024 10:26 AM [facility] FOLATE (WROX) SERUM Specimen Type: SERUM No comment entered. Ordering Provider: COURTNEY FAROOQ Report Released Date/Time: Aug 22, 2024 10:17 AM Reporting Lab: [facility] [address] [facility] [address] Performing Lab: [facility] [address] [facility] [address] FOLATE (WROX) 3.90 ng/mL L >5.2 Aug 22, 2024 10:26 AM [facility] RETICULOCYTES BLOOD Specimen Type: BLOOD Comment: Smear reviewed, auto CBC w/Diff accepted. Ordering Provider: COURTNEY FAROOQ Report Released Date/Time: Aug 22, 2024 10:17 AM Reporting Lab: [facility] [address] [facility] [address] Performing Lab: [facility] [address] RETIC % 2.6 H 0.6-2.0 RETIC, ABS 91.6 10*3/uL H 30.0-90.0 RET-HE % 29.6 27.9-42.0 Aug 22, 2024 10:26 AM [facility] IRON & TIBC PANEL SERUM Specimen Type: SERUM No comment entered. Ordering Provider: COURTNEY FAROOQ Report Released Date/Time: Aug 22, 2024 10:17 AM Reporting Lab: [facility] [address] [facility] [address] Performing Lab: [facility] [address] TIBC 210 ug/dL 204-475 IRON 43 ug/dL 40-160 Transferrin Saturation 20.5 20.0-50.0 Transferrin (TRF) 159 mg/dL L 200-360 Aug 22, 2024 10:26 AM [facility] FERRITIN SERUM Sp ecimen Type: SERUM No comment entered. Ordering Provider: COURTNEY FAROOQ Report Released Date/Time: Aug 22, 2024 10:17 AM Reporting Lab: [facility] [address] Performing Lab: [facility] [address] FERRITIN 1130 ng/mL H 20-300 Aug 22, 2024 10:26 AM [facility] VITAMIN B12 SERUM Specimen Type: SERUM No comment entered. Ordering Provider: COURTNEY FAROOQ Report Released Date/Time: Aug 22, 2024 10:17 AM Reporting Lab: [facility] [address] [address] Performing Lab: [facility] [address] [facility] [address] VITAMIN B12 378 pg/mL 200-900 Aug 22, 2024 10:26 AM [facility] CBC AND DIFF (AUTO) BLOOD Specimen Ty pe: BLOOD Comment: Smear reviewed, auto CBC w/Diff accepted. Ordering Provider: COURTNEY FAROOQ Report Released Date/Time: Aug 22, 2024 10:17 AM Reporting Lab: [facility] [address] [facility] [address] Performing Lab: [facility] [address] [facility] [address] WBC 7.35 10*3/uL 4.50-11.00 RBC 3.51 10*6/uL [...] H 0.00-0.00 Aug 22, 2024 10:26 AM [facility] LIVER FUNCTION SERUM Specimen Type: SERUM No comment entered. Ordering Provider: COURTNEY FAROOQ Report Released Date/Time: Aug 22, 2024 10:17 AM Reporting Lab: [address] [address] Performing Lab: [address] [address] PROTEIN,TOTAL 6.0 g/dL 6.0-8.3 ALBUMIN 3.1 g/dL L 3.5-5.0 ALKALINE PHOSPHATASE 138 U/L 40-150 AST 27 U/L 5-34 ALT 36 U/L BILIRUBIN, TOTAL 1.0 mg/dL 0.2-1.2 Aug 22, 2024 10:26 AM [facility] BASIC METABOLIC PANEL (non-fasting) SERUM Specimen Type: SERUM No comment entered. Ordering Provider: COURTNEY FAROOQ Report Released Date/Time: Aug 22, 2024 10:17 AM Reporting Lab: [address] [address] Performing Lab: [address] [address] UREA NITROGEN 12 mg/dL 7-25 GLUCOSE 104 mg/dL H 65-100 SODIUM 136 mmol/L 135-145 POTASSIUM 4.7 mmol/L 3.5-5.0 CHLORIDE 106 mmol/L 100-110 CO2 18 meq/L L 20-30 CREATININE, Serum 1.15 mg/dL 0.50-1.40 eGFR(CKD-EPI 2020) 65 mL/min >60 Aug 16, 2024 01:58 PM [facility] MICROALBUMIN CREATININE RATIO PANEL URINE Spe cimen Type: URINE No comment entered. Ordering Provider: COURTNEY FAROOQ Report Released Date/Time: Aug 08, 2024 01:49 PM Reporting Lab: [address] [address] Performing Lab: [address] [address] MICROALBUMIN/CREATININE RATIO 7.3 mg/g 0 -29.9 MICROALBUMIN,QUANTITATIVE 0.8 mg/dL RR U NAVAIL CREATININE URINE 109.38 mg/dL Aug 16, 2024 01:58 PM [facility] URINALYSIS URINE Specimen Type: URINE Comment: If Glucose = >500 and Ketones are positive, please alert the Physician. Ordering Provider: COURTNEY FAROOQ Report Released Date/Time: Aug 08, 2024 01:49 PM Reporting Lab: [facility] [address] [facility] [address] Performing Lab: [address] [address] UA COLOR Light-Yellow Yellow UA APPEARANCE Clear Clear UA GLUCOSE Normal mg/dL Negative UA KETONES NEGATIVE mg/dL Negative UA BLOOD NEGATIVE mg/dL Negative UA PROTEIN 10 mg/dL Negative UA NITRITE NEGATIVE mg/dL Negative UA BILIRUBIN NEGATIVE mg/dL Negative UA SPECIFIC GRAVITY 1.017 1.016-1.022 UA pH 6.0 5.0-9.0 UA UROBILINOGEN Normal mg/dL <2.0 UA LEUKOCYTE TRACE Negative Aug 16, 2024 01:58 PM [facility] MICROSCOPIC AUTOMATED, URINE URINE Specimen T ype: URINE Comment: If Glucose = >500 and Ketones are positive, please alert the Physician. Ordering Provider: COURTNEY FAROOQ Report Released Date/Time: Aug 08, 2024 01:49 PM Reporting Lab: [address] [address] Performing Lab: [address] [address] UA WBC 0-5 /[HPF] 0-5 UA BACTERIA 1+ /[HPF] NoneObs UA MUCUS FEW /[LPF] Trace UA HYALINE CASTS 2-4 /[LPF] 0-2 UA RBC 3-5 /[HPF] 0-3 Aug 15, 2024 10:14 AM [facility] BASIC METABOLIC PANEL (fasting) SERUM Specime n Type: SERUM No comment entered. Ordering Provider: COURTNEY FAROOQ Report Released Date/Time: Aug 08, 2024 01:49 PM Reporting Lab: [address] [address] Performing Lab: [address] [place] [address] UREA NITROGEN 28 mg/dL H 7-25 GLUCOSE 98 mg/dL 65-100 SODIUM 133 mmol/L L 135-145 POTASSIUM 5.3 mmol/L H 3.5-5.0 CHLORIDE 106 mmol/L 100-110 CO2 15 meq/L L 20-30 CREATININE, Serum 1.31 mg/dL 0.50-1.40 eGFR(CKD-EPI 2020) 55 mL/min L >60 Aug 15, 2024 10:14 AM [facility] LIPID PANEL FASTING SERUM Specimen Type: SERU M No comment entered. Ordering Provider: COURTNEY FAROOQ Report Released Date/Time: Aug 08, 2024 01:49 PM Reporting Lab: [address] [address] Performing Lab: [address] [address] CHOLESTEROL 69 mg/dL TRIGLYCERIDE 88 mg/dL 0-150 LDL calculated 16 mg/dL 0-129 CHOL/HDL 2.0 HDL CHOLESTEROL 35 mg/dL L 40-60 Aug 15, 2024 10:14 AM [facility] LIVER FUNCTION SERUM Specimen Type: SERUM No comment entered. Ordering Provider: COURTNEY FAROOQ Report Released Date/Time: Aug 08, 2024 01:49 PM Reporting Lab: [address] [address] Performing Lab: [address] [address] PROTEIN,TOTAL 6.2 g/dL 6.0-8.3 ALBUMIN 3.2 g/dL L 3.5-5.0 ALKALINE PHOSPHATASE 103 U/L 40-150 AST 17 U/L 5-34 ALT 25 U/L BILIRUBIN, TOTAL 0.9 mg/dL 0.2-1.2 Aug 15, 2024 10:14 AM [facility] HEMOGLOBIN A1C PANEL BLOOD Specimen Type: BLO [...] Aug 08, 2024 01:49 PM Reporting Lab: [place] [facility] [place] [facility] [address] [facility] [address] Performing Lab: [place] [facility] [place] [facility] [address] [facility] [address] HEMOGLOBIN A1C 6.7 H 4.0-5.6 Aug 15, 2024 10:14 AM [place] [facility] TSH SERUM Specimen Type: SERUM No comment entered. Ordering Provider: COURTNEY FAROOQ Report Released Date/Time: Aug 08, 2024 01:49 PM Reporting Lab: [place] [facility] [place] [facility] [address] [facility] [address] Performing Lab: [place] [facility] [place] [facility] [address] [facility] [address] TSH 1.84 u[IU]/mL 0.35-5.00 Aug 15, 2024 10:14 AM [facility] CALCIUM SERUM Specimen Type: SERUM No comment entered. Ordering Provider: COURTNEY FAROOQ Report Released Date/Time: Aug 08, 2024 01:49 PM Reporting Lab: [place] [facility] [place] [facility] [address] [facility] [address] Performing Lab: [place] [address] [address] CALCIUM 8.5 mg/dL 8.5-10.2 Aug 15, 2024 10:14 AM [facility] URIC ACID SERUM Specimen Type: SERUM No comment entered. Ordering Provider: COURTNEY FAROOQ Report Released Date/Time: Aug 08, 2024 01:49 PM Reporting Lab: [place] [facility] [place] [facility] [address] [facility] [address] Performing Lab: [place] [facility] [place] [facility] [address] [facility] [address] URIC ACID 7.9 mg/dL H 3.5-7.2 Aug 15, 2024 10:14 AM [facility] VITAMIN D (25-OH) SERUM Specimen Type: SERUM No comment entered. Ordering Provider: COURTNEY FAROOQ Report Released Date/Time: Aug 08, 2024 01:49 PM Reporting Lab: [facility] [address] [facility] [address] Performing Lab: [address] [address] VITAMIN D (25-OH) <13 ng/mL L 20-50 Aug 15, 2024 10:14 AM [facility] CBC AND DIFF (AUTO) BLOOD Specimen Type: BLOO D No comment entered. Ordering Provider: COURTNEY FAROOQ Report Released Date/Time: Aug 08, 2024 01:49 PM Reporting Lab: [facility] [address] [facility] [address] Performing Lab: [address] [address] WBC 7.54 10*3/uL 4.50-11.00 RBC 3.63 10*6/uL [...] 0.0 0.0-0.0 NRBC, ABS 0.00 10*3/uL 0.00-0.00 Vital Signs: All taken on the encounter date This section contains inpatient and outpatient Vital Signs collected on the date of the Encounter. Date/Time Temperature Pulse Blood Pressure Respiratory Rate SP02 Pain Height Weight Body Mass Index Source Aug 22, 2024 09:46 AM 91 89/59 20 93 [place] Social History: Smoking Status (Most current) and Tobacco Use (All prior to encounter date) This section includes the most current, and the historical, smoking and tobacco- related health factors from the [place] facility where the Encounter took place. Current Smoking Status This section includes the most current smoking, or tobacco-related health factor, from the [place] facility where the Encounter took place. Date/Time Current Smoking Status Comment Facil ity Aug 22, 2024 09:30 AM [place]-TO[facility]AC[place] NEVER USED [facility] Tobacco Use History This section includes a history of the smoking, or tobacco-related health factors, that were collected on or before the date of the Encounter. The data comes from the [place] facility where the Encounter took place. Date/Time Smoking Status/Tobacco Use Comment F acility Aug 22, 2024 09:30 AM [place]-TO[place]AC[place] NEVER USED [facility] Aug 22, 2024 09:30 AM [place]-TO[place]ACCO QUIT 15 YRS OR MORE [facility] Advance Directives: All historical and current Section Date Range: From patient's date of to the date document was created. This section includes ALL of a patient's completed or amended [place] Advance and Rescinded Directives. The entries below indicate that a directive exists for the patient, but an actual copy is not included with this document. The data comes from all [place] facilities. Date Advance Directives Provider Source Jul 15, 2023 ADVANCE DIRECTIVE ROGER PEDRAZA Jun 30, 2019 ADVANCE DIRECTIVE CASSIE POWELL [place] [facility] Encounter Notes: All associated encounter notes This section contains the clinical notes associated to the Encounter. Date/Time Encounter Note(s) Provider Source Aug 22, 2024 09:47 AM PREVENTIVE MEDICIN E NURSING NOTE: LOCAL TITLE: CLINICAL REMINDERS/NURSING STANDARD TITLE: PREVENTIVE MEDICINE NURSING NOTE DATE OF NOTE: AUG 22, 2024@09:47 ENTRY DATE: AUG 22, 2024@09:47:43 AUTHOR: RENETTA JACK EXP COSIGNER: URGENCY: STATUS: COMPLETED Influenza Immunization: Deferral / Refusal The patient declines to receive the recommended dose of seasonal influenza vaccine. Immunization: INFLUENZA, UNSPECIFIED FORMULATION Refusal Reason: PATIENT DECISION Patient refuses all immunization(s) in the FLU group Comment: Was told not to get them, states allergies Date Documented: 08/22/24 09:57 unable to complete CR today, 's is adamant only wanted to see Dr. Brooks today, States that she was told this was supposed to take place today. has seen his outside pcp([facility] 2-3 weeks ago). defer all CR until next visit with Pact 5. /inge/ RENETTA JACK LPN LICENSED PRACTICAL NURSE Signed: 08/22/2024 10:25 RENETTA JACK [facility] Aug 22, 2024 09:35 AM PHYSICIAN ASSISTAN T NOTE: LOCAL TITLE: PA NOTE STANDARD TITLE: PHYSICIAN FARMER DIVERSIFIED CROPS NOTE DATE OF NOTE: AUG 22, 2024@09:35 ENTRY DATE: AUG 22, 2024@09:35:54 AUTHOR: COURTNEY FAROOQ EXP COSIGNER: URGENCY: STATUS: COMPLETED S - hospital discharge seen ED at [place] [address] aug 17 ended up being admitted dx of bacteriemia and urinary sepsis also acute hypoxic respiratory failure; and resultant exacerbation copd and pneumonia also, yi and lactic acidosis that resolved yi attributed to hypovelemia and hypotension and hyponatremia hypomagnesium noted; resolved w/ IV replacement discharge meds included: prednisone 40 mg daily x 4 days linezolid 600 mg bid x 14 days cefuroxime 250 mg bid x 14 days has completed courses of these three O - coop A&Ox3 NAD W-N/H/D confined to wheel chair CHART: reviewed ED and Hospital Course Discharge Summaries LABS done at [facility] AUG 17: CBC ABNL - PLT 39 RBC Slightly Low H/H 11.7 / 33.2 Lytes - Improved from Dates of Admission: K 3.5 and Na 133 Renals - Creat 1.3 and BUN 28 & eGFR 55 UA - Minimalist WBC's, RBC's A/P - 1) s/p Sepsis (UTI/Bacteremia - Resolved) 2) Thrombopenia w/ PLT of 39 in JUL 24 +Easy Bruising Does Not Have Polcythemia Remainder of CBC Unremarkable 3) Increased Generalized Weakness Post-Discharge - CON: Home PT - CON: OT for Home Adaptive Equip Already Submitted - CON: HBPC May Be Viable Option Since So Hard to Get Him Out of Home RTC prn and see PCP Next Available Medication Reconciliation: Outpatient: Has the patient been taking medications as documented in the EMLR? YES: The patient has been taking medications as documented in the EMLR. Essential Medication List for Review used to complete this medication reconciliation. INCLUDED IN THIS LIST: Alphabetical list of active outpatient prescriptions dispensed from this [place] (local) and dispensed from another VA or DoD facility (remote) as well as inpatient orders (local, pending and active), local clinic medications, locally documented non-VA medications, and local prescriptions that have or been discontinued in the past 90 days. - All changes in medications, including all non-VA/Herbal/OTC medications were entered into CPRS. Changes: nt - If there were any medications the patient should no longer take, they were discontinued. - The patient/caregiver was instructed to update this list, discard old lists, and take this list to the next appointment, whether with a VA or non-VA provider. Alcohol Use Screen (AUDIT-C): Alcohol Screen: SCREEN FOR ALCOHOL (AUDIT-C) An alcohol screening test (AUDIT-C) was negative (score=0). 1. How often did you have a drink containing alcohol in the past year? Consider a drink to be a 12 ounce can or bottle of regular beer, 8 ounces of malt liquor, a 5 ounce glass of table wine, or a 1.5 ounce shot of liquor (like scotch, gin, or vodka). Never 2. How many drinks containing alcohol did you have on a typical day when you were drinking in the past year? Response not required due to responses to other questions. 3. How often did you have six or more drinks on one occasion in the past year? Response not required due to responses to other questions. Homelessness/Food Insecurity Screen: In the past 2 months, have you been living in stable housing that you own, rent, or stay in as part of a household? Yes - Living in stable housing. Are you worried or concerned that in the next 2 months you may NOT have stable housing that you own, rent, or stay in as part of a household? No - Not worried about housing near future The reports the following: Within the past 12 months, you worried whether your food would run out before you got money to buy more. Never true Within the past 12 months, the food you bought just didn't last and you didn't have money to get more. Never true Falls & Incontinence Screen: Falls Screen: During the past 12 months, did the patient report any falls? 3. At least one fall with injury requiring treatment (in ED or clinic visit). Falls evaluation: (Must be completed by PROVIDER after Positive Falls Screen!) Circumstances of Fall: (I.e. how fall(s) occurred; patient injury sustained; treatment required for injury.) no injuries Medications patient is taking: (Review of medications which MAY have contributed to patient fall or mobility disorder.) No medications were identified which contributed to patient fall or mobility disorder. Relevant Chronic Conditions (diseases disorders likely to contribute to fall risk, e.g. 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 Please specify: Which conditions? leg pain Diagnostic Plans/Therapeutic Recommendations (Check all that apply): Other: Specify: none Actions Taken (to implement above diagnostic plans): Other: Specific actions: ot for house Incontinence Screen: During the past 12 months, has the patient has any characteristics of incontinence (ability, voiding, leakage, etc.)? No incontinence. Tobacco Use Screening: The patient is a former tobacco user. The patient quit fifteen or more years ago. /inge/ COURTNEY FAROOQ PA-C STAFF PHYSICIAN FARMER DIVERSIFIED CROPS Signed: 08/22/2024 10:22 COURTNEY FAROOQ
--- OUTSIDE RECORDS SUMMARY | 2024-09-20 05:00 | XMS_ITS | Encounter Summary ---
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 Date/Time Encounter Type Encounter Description Reason Provider Source Sep 20, 2024 09:00 AM OFFICE O/P EST MOD 30 MIN PRIMARY CARE/MEDICINE ICD-10-CM D64.9 Anemia, unspecified GURPREET MAYORGA Encounter Template Text not used by VA Assessments - Encounter Diagnoses This section includes the primary and secondary diagnoses documented for the Encounter. Date/Time Primary/Secondary Diagnosis Diagnosis Name Provider Source Sep 20, 2024 10:05 AM PRIMARY Anemia, unspecified GURPREET MAYORGA Sep 20, 2024 10:05 AM SECONDARY Age-related physical debility GUPRREET MAYORGA [place] Sep 20, 2024 10:05 AM SECONDARY Athscl heart disease of [place] coronary artery w/o ang pctrs GURPREET MAYORGA [place] Sep 20, 2024 10:05 AM SECONDARY Bronchiectasis, uncomplicated VARGAS DAHL,GURPREET [place] Sep 20, 2024 10:05 AM SECONDARY Disorientation, unspecified KRIS-PRATIBHA DAHL,GURPREET [place] Sep 20, 2024 10:05 AM SECONDARY Essential (primary) hypertension VARGAS NABILAGURPREET [facility] Sep 20, 2024 10:05 AM SECONDARY Hyperlipidemia, unspecified KRIS-PRATIBHA DAHL,GURPREET [facility] Sep 20, 2024 10:05 AM SECONDARY Type 2 diabetes mellitus without complications VARGAS NABILAGURPREET [facility] Sep 20, 2024 10:05 AM SECONDARY Unspecified chronic bronchitis VARGAS DAHLGURPREET [facility] Sep 20, 2024 10:05 AM SECONDARY Unspecified hearing loss, unspecified ear VARGAS NABILAGURPREET [facility] Plan of Treatment: Future Appointments (+ 6 months) and Future Tests (+/- 45 days) The Plan of Treatment section includes future care activities for the patient from all [facility]. This section includes future appointments and future orders which are active, pending or scheduled. Future Appointments This section includes appointments that were scheduled to occur 6 months from the date of the Encounter, up to a maximum of 20 appointments. The data comes from all [facility]. Appointment Date/Time Appointment Type Appointme nt Facility Name Oct 03, 2024 11:30 AM [place] [facility] Oct 31, 2024 08:00 AM AM[facility]UL[facility] - [facility] Nov 15, 2024 09:00 AM [facility]INE [facility] Nov 22, 2024 09:00 AM AMBULATORY - MEDICINE [facility] Dec 29, 2024 08:30 AM AM[place]ULAT[facility] [place] [facility] [place] [facility] Jan 09, 2025 02:00 PM AMBULATORY [place] [facility] Jan 10, 2025 10:00 AM [place] [facility] Jan 24, 2025 08:00 AM [place] [facility] Lab Results: +/- 30 days of the encounter This section includes the Chemistry and Hematology Lab Results on record with [place] for the patient. Radiology Reports and Pathology Reports are provided separately, in subsequent sections. Lab Results This section contains the Chemistry/Hematology Results that were resulted 30 days before or 30 daysafter the date of the Encounter. Date/Time Source Result Type Result - Unit Interpretation Reference Range Specimen Type Comment Aug 22, 2024 10:26 AM [place] FOLATE (WROX) SERUM Specimen Type: SERUM No comment entered. Ordering Provider: COURTNEY FAROOQ Report Released Date/Time: Aug 22, 2024 10:17 AM Reporting [facility] [address] [address] Performing Lab: [facility] [address] [facility] [address] FOLATE (WROX) 3.90 ng/mL L >5.2 Aug 22, 2024 10:26 AM [place] RETICULOCYTES BLOOD Specimen Type: BLOOD Comment: Smear reviewed, auto CBC w/Diff accepted. Ordering Provider: COURTNEY FAROOQ Report Released Date/Time: Aug 22, 2024 10:17 AM Reporting Lab: [facility] [address] [address] Performing Lab: [facility] [address] [address] RETIC % 2.6 H 0.6-2.0 RETIC, ABS 91.6 10*3/uL H 30.0-90.0 RET-HE % 29.6 27.9-42.0 Aug 22, 2024 10:26 AM [place] IRON & TIBC PANEL SERUM Specimen Type: SERUM No comment entered. Ordering Provider: COURTNEY FAROOQ Report Released Date/Time: Aug 22, 2024 10:17 AM Reporting Lab: [facility] [address] [address] Performing Lab: [facility] [address] [address] TIBC 210 ug/dL 204-475 IRON 43 ug/dL 40-160 Transferrin Saturation 20.5 20.0-50.0 Transferrin (TRF) 159 mg/dL L 200-360 Aug 22, 2024 10:26 AM [place] FERRITIN SERUM Sp ecimen Type: SERUM No comment entered. Ordering Provider: COURTNEY FAROOQ Report Released Date/Time: Aug 22, 2024 10:17 AM Reporting [facility] [address] [address] Performing Lab: [address] [address] FERRITIN 1130 ng/mL H 20-300 Aug 22, 2024 10:26 AM [place] VITAMIN B12 SERUM Specimen Type: SERUM No comment entered. Ordering Provider: COURTNEY FAROOQ Report Released Date/Time: Aug 22, 2024 10:17 AM Reporting [facility] [address] [address] [facility] [address] [address] VITAMIN B12 378 pg/mL 200-900 Aug 22, 2024 10:26 AM [place] CBC AND DIFF (AUTO) BLOOD Specimen Ty pe: BLOOD Comment: Smear reviewed, auto CBC w/Diff accepted. Ordering Provider: COURTNEY FAROOQ Report Released Date/Time: Aug 22, 2024 10:17 AM Reporting Lab: [facility] [address] [address] Performing [facility]: [facility] [address] [address] WBC 7.35 10*3/uL 4.50-11.00 RBC 3.51 10*6/uL [...] H 0.00-0.00 Aug 22, 2024 10:26 AM [place] BASIC METABOLIC PANEL (non-fasting) SERUM Specimen Type: SERUM No comment entered. Ordering Provider: COURTNEY FAROOQ Report Released Date/Time: Aug 22, 2024 10:17 AM Reporting Lab: [facility] [address] [address] Performing Lab: [address] [address] UREA NITROGEN 12 mg/dL 7-25 GLUCOSE 104 mg/dL H 65-100 SODIUM 136 mmol/L 135-145 POTASSIUM 4.7 mmol/L 3.5-5.0 CHLORIDE 106 mmol/L 100-110 CO2 18 meq/L L 20-30 CREATININE, Serum 1.15 mg/dL 0.50-1.40 eGFR(CKD-EPI 2020) 65 mL/min >60 Aug 22, 2024 10:26 AM [place] LIVER FUNCTION SERUM Specimen Type: SERUM No comment entered. Ordering Provider: COURTNEY FAROOQ Report Released Date/Time: Aug 22, 2024 10:17 AM Reporting Lab: [facility] [address] [address] Performing Lab: [facility] [address] [address] PROTEIN,TOTAL 6.0 g/dL 6.0-8.3 ALBUMIN 3.1 g/dL L 3.5-5.0 ALKALINE PHOSPHATASE 138 U/L 40-150 AST 27 U/L 5-34 ALT 36 U/L BILIRUBIN, TOTAL 1.0 mg/dL 0.2-1.2 Social History: Smoking Status (Most current) and Tobacco Use (All prior to encounter date) This section includes the most current, and the historical, smoking and tobacco- related health factors from the [place] facility where the Encounter took place. Current Smoking Status This section includes the most current smoking, or tobacco-related health factor, from the [place] facility where the Encounter took place. Date/Time Current Smoking Status Comment Facil ity Aug 22, 2024 09:30 AM [place]-TOBACCO NEVER USED [place] Tobacco Use History This section includes a history of the smoking, or tobacco-related health factors, that were collected on or before the date of the Encounter. The data comes from the [place] facility where the Encounter took place. Date/Time Smoking Status/Tobacco Use Comment F acility Aug 22, 2024 09:30 AM [place]-TOBACCO NEVER USED [place] Aug 22, 2024 09:30 AM [place]-TOBACCO QUIT 15 YRS OR MORE [place] Advance Directives: All historical and current Section Date Range: From patient's date of to the date document was created. This section includes ALL of a patient's completed or amended [place] Advance and Rescinded Directives. The entries below indicate that a directive exists for the patient, but an actual copy is not included with this document. The data comes from all [place] facilities. Date Advance Directives Provider Source Jul 15, 2023 ADVANCE DIRECTIVE ROGER PEDRAZA Jun 30, 2019 ADVANCE DIRECTIVE CASSIE POWELL [facility] Encounter Notes: All associated encounter notes This section contains the clinical notes associated to the Encounter. Date/Time Encounter Note(s) Provider Source Sep 20, 2024 09:00 AM PHYSICIAN NOTE: LOCAL TITLE: MD NOTE STANDARD TITLE: PHYSICIAN NOTE DATE OF NOTE: SEP 20, 2024@09:00 ENTRY DATE: SEP 18, 2024@23:35:50 AUTHOR: Adriel PEREZ EXP COSIGNER: URGENCY: STATUS: COMPLETED NOTE Has ADDENDA Pt is 79 y/o M with PMH of HTN, HL, DM2, CAD s/p PCI 2 stents, COPD (chronic bronchitis, bronchiectasis), anemia, hearing loss called today for annual [facility] f/u last/inital visit 07/2023 PCP is non-VA Dr Jhon Christianson - q3-4m (next 11/2023) Other providers: --neurology Dr Bernadette Landry [place] --pulmonary Dr Ruiz - [phone] [place] cardiovascular [facility] q3-4m --cardiology Dr Moreira [phone] [facility] not seen recently --non [place] podiatry q4-5m --non [place] eye [facility] July 2024 admitted at [facility] Admitting diagnosis -bacteriemia and urinary sepsis -acute hypoxic respiratory failure -resultant exacerbation copd and pneumonia -pily and lactic acidosis that resolved pily attributed to hypovelemia and hypotension and hyponatremia -hypomagnesium noted; resolved w/ IV replacement -discharge meds included: prednisone 40 mg daily x 4 days linezolid 600 mg bid x 14 days cefuroxime 250 mg bid x 14 days has completed courses of these three pt discharged home with VNS weekly since last admission due to leg weakness and knee pain 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 last few months getting worse. 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 compliant with medications denies CP/SOB/RODAS/palpitations/dizzi ness /claudication normotensive at home 130/70 oxygen 91-94% on RA supplemental oxygen prn eating 2 meals per day PAST MEDICAL HISTORY: --HTN --Chronic orthostatic hypotension --Confusion --H/O: vertigo --HL --Diabetes mellitus type 2 --Hypoglycemia --CAD with stable angina pectoris --Anemia --COPD --Chronic bronchitis --Bronchiectasis Without complication --Pruritic rash --Weight loss --Rt hip OA and impingment --hearing loss Bilateral PAST SURGICAL HISTORY: --vasectomy --PCI s/p stent x2 [facility] ALLERGIES: SULFA DRUGS, SULFAMETHOXAZOLE/TRIMETHOPRIM , INFLUENZA VACCINE MEDICATIONS: Non-VA ASPIRIN 81MG Non-VA ATORVASTATIN 80MG Non-VA METOPROLOL SUCCINATE 50MG Non-VA METFORMIN HCL 1000MG TAB DAILY Non-VA ALBUTEROL Non-VA TRELEGY ELLIPTA 100/62.5/25MCG INH 30D 1 INHALATION ONCE DAILY Non-VA ALBUTEROL 90MCG (CFC-F) 200D Non-VA GUAIFENESIN 600MG SA TAB 1200MGDAILY Non-VA CETIRIZINE HCL 10MG nebs DEPEND UNDERWEAR,MAXIMUM,MEN LARGE USE 1 BRIEF DIRECTED ACTIVE THREE TIMES DAILY NEEDED URINARY INCONTINENCE UNDERPAD,BED 23IN X 36IN PLASTIC BACK USE 1 PAD TOPICALLY ACTIVE TWICE DAILY NEEDED URINARY INCONTINENCE SOCIAL HISTORY: [employer] --Occupation:retired --Cohabitation: --Children: one sone (1977), 2 stepchildren --Diet: regular , 2 meals daily --Exercise: None wheelchair-bound --Caffeine: 2c/daily --EtOH:rarely --Tob: quit 29 y/ago, h/o 30xPPDY --MJ: denies --Illicits:denies --Eye: UTD --Dental: dentures --Hospitalizations: 05/2023 rahab at [facility] 06/2023 COVID PNA 07/2024 urosepsis, PNA, PILY ROS: Constitutional: no fever/no chills, no ns Eyes: no decreased vision/blurry vision Ears/Nose/Throat: hearing aids Respiratory: chronic cough +/denies wheezing/no SOB Cardiovascular: no CP/palpitations Gastrointestinal: no abdominal pain/bloody/black stools :no dysuria/hematuria/trouble voiding, hesitancy + MSK: chronic knee pain - f/w ortho, has knee sleeves that help Neuro: no H/A Skin: no pruritus/rash wheelchair bound PHYSICAL EXAM: Vital Signs: Blood Pressure: 124/78 (07/29/2023 11:27) Gen: pleasant, NAD LABORATORY:07/2024 WBC: 7.35 HGB: 11.1 L HCT: 32.1 L MCV: 91.5 RDW: 13.0 PLT: 117 L RETICULOCYTES: 2.6 H VIT. B12 (WROX): 378 FOLATE (WR): 3.90 L FERRITIN (WR): 1130 H TIBC (WROX): 210 IRON (WROX): 43 TRANSFERRIN SATURATION: 20.5 Transferrin: 159 L TSH (Access): 1.84 VITAMIN D TOTAL: <13 L ---> CALCIUM: 8.5 HGB A1C (WR): 6.7 H GLUCOSE: 104 H UREA NITROGEN: 12 CREATININE-EGFR: 1.15 eGFR CKD-EPI 2020: 65 SODIUM: 136 POTASSIUM: 4.7 CHLORIDE: 106 CO2: 18 L MICROALB/CR RATIO: 7.3 MICROALBUMIN URINE: 0.8 CREATININE URINE: 109.38 PROTEIN,TOTAL: 6.0 ALBUMIN: 3.1 L ALKALINE PHOSPHATASE: 138 BILIRUBIN,TOT.: 1.0 SGOT: 27 SGPT: 36 URIC ACID: 7.9 H CHOLESTEROL: 69 TRIGLYCERIDE: 88 LDL CHOL: 16 CHOL/HDL RATIO: 2.0 HDL: 35 L U/A WBC/HPF: 0-5 RBC/HPF: 3-5 BACTERIA: 1+ MUCUS: FEW HYALINE/CASTS/LPF: 2-4 Color, Urine (AX 4280): Light-Yellow Appearance, Urine (AX 4280): Clear Glucose, Urine (AX 4280): Normal Ketones, Urine (AX 4280): NEGATIVE Blood, Urine (AX 4280): NEGATIVE Protein, Urine (AX 4280): 10 Nitrite, Urine (AX 4280): NEGATIVE Bilirubin, Urine (AX 4280): NEGATIVE Specific [place], (AX 4280): 1.017 pH, Urine (BP6830): 6.0 Urobilinogen, Urine (AX 4280): Normal Leukocyte Esterase, (AX 4280): TRACE ASSESSMENT/PLAN: Pt is 79 y/o M with PMH of HTN, HL, DM2, CAD s/p PCI 2 stents, chronic bronchitis, bronchiectasis, anemia, hearing loss here today to establish care at the VA # Mild normocytic anemia and thrombocytopenia: Baseline unknown TSH normal, no evidence of iron deficiency, may be side effect of linezolid and cefuroxime- -Patient will follow-up with non VA PCP, has follow-up appointment scheduled for October with blood work prior -Start daily multivitamin #loss of appetite, low vitamin D, folate, alb -referral to nutrition for nutritional supplements -s/w MV daily #HTN: normotensive at home, moniutoring weekly by VNS -on toprol 50mg #h/o orthostatic hypotension, fall risk, deconditioning after recent hospitalization -Fall precautions discussed with patient, home health aide and -Ambulates with a walker , 2 persons assist after recent admission -referral to home PT, at this time pt and not interested in HBPC services, they prefer to continue to see non VA PCP -Adequate hydration encouraged #CAD s/p PCI 2 stents, HL: asymptomatic on BB, statin, ASA -f/w non VA PCP,cardio #COPD, chronic bronchitis, bronchiectasis: Clinically stable On Trelegy Ellipta and albuterol as needed GUAIFENESIN, nebs Encouraged use of incentive spirometer Supplemental oxygen as needed only F/w with non-VA pulmonary #[id number] -c/w metformin 1000 mg daily #Hearing loss-has hearing aids f/w [facility] #eye = [facility] with [facility]24 Healthcare maintenance: --Lipids: LDL 16 (07/2024) --Diabetes: A1c 6.7 (07/2024) --Colon CA (45-75): never, declined --Lung CA: --PSA --AAA (smoker/65): --Influenza (yrly): declined -mother had Bryan syndrome --COVID: declined booster had rash --PCV20: 05/2023 --PCV23: --RZV (>50yrs, x2): 2019X2 --TDAP: 12/2022 --Hep C screen: declined --HIV screen: --DEXA: --Advanced Directives: Comanagement - prefers to have most aspects of health maintenance, chronic condition(s) and medication management to non-VA PCP. Address at next visit: Return to clinic to see me in _12_ months, sooner PRN. Virtual ( ), F2F ( x ) ( )non fasting labs ordered prior to f/u ( )fasting labs ordered prior to f/u ( )no labs needed (x )request labs from outside provider (x )request records from outside providers --last PCP note please place referral to home PT for gait difficulties due to deconditioning after recent hospitalization thank you Medication Reconciliation: Outpatient: Has the patient been taking medications as documented in the EMLR? YES: The patient has been taking medications as documented in the EMLR. Essential Medication List for Review used to complete this medication reconciliation. INCLUDED IN THIS LIST: Alphabetical list of active outpatient prescriptions dispensed from this VA (local) and dispensed from another VA or DoD facility (remote) as well as inpatient orders (local, pending and active), local clinic medications, locally documented non-VA medications, and local prescriptions that have or been discontinued in the past 90 days. - All changes in medications, including all non-VA/Herbal/OTC medications were entered into CPRS. - If there were any medications the patient should no longer take, they were discontinued. - The patient/caregiver was instructed to update this list, discard old lists, and take this list to the next appointment, whether with a VA or non-VA provider. /inge/ GURPREET PEREZ MD PHYSICIAN Signed: 09/20/2024 10:05 Receipt Acknowledged By: 09/24/2024 23:22 /inge/ JANINA ROWE RN REGISTERED NURSE 09/20/2024 10:58 /inge/ JUAN MORRIS 09/24/2024 ADDENDUM STATUS: COMPLETED Consult placed as requested and held for PCP signature. /inge/ JANINA ROSA-MIREKU,RN REGISTERED NURSE Signed: 09/24/2024 23:21 EDY PEREZFIELD
--- OUTSIDE RECORDS SUMMARY | 2024-10-03 07:30 | XMS_ITS | Encounter Summary ---
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 Address [address] [place] [id number] Care Team Providers Care Communication Center Coordinator Name Role Phone GURPREET PEREZ Primary Care [...] Harding's Name Patient's Relationship to Policy Harding [facility] (WNR) MEDICARE ADVANTAGE [facility] (R) Oct 25, 2011 [facility] [id number] GOMEZ PATIENT Selected Encounter This section includes the information on record at [place] for the Encounter. Date/Time Encounter Type Encounter Description Reason Provider Source Oct 03, 2024 11:30 AM COMPRE OPH EXAM NEW PT 1/> OPTOMETRY ICD-10-CM E11.9 Type 2 diabetes mellitus without complications JONATHAN MATAMOROS Luisito Encounter Template Text not used by PA Assessments - Encounter Diagnoses This section includes the primary and secondary diagnoses documented for the Encounter. Date/Time Primary/Secondary Diagnosis Diagnosis Name Provider Source Oct 03, 2024 01:04 PM PRIMARY Type 2 diabetes mellitus without complications JONATHAN MATAMOROS [facility] [place] [facility] Oct 03, 2024 01:04 PM SECONDARY Hypermetropia, bilateral JONATHAN MATAMOROS [facility] [place] [facility] Oct 03, 2024 01:04 PM SECONDARY Nexdtve age-related mclr degn, bilateral, early dry stage JONATHAN MATAMOROS B [facility] [place] [facility] Oct 03, 2024 01:04 PM SECONDARY Presence of intraocular lens JONATHAN MATAMOROS [facility] [place] [facility] Plan of Treatment: Future Appointments (+ 6 months) and Future Tests (+/- 45 days) The Plan of Treatment section includes future care activities for the patient from all [facility] treatments[facility]. This section includes future appointments and future orders which are active, pending or scheduled. Future Appointments This section includes appointments that were scheduled to occur 6 months from the date of the Encounter, up to a maximum of 20 appointments. The data comes from all [place] treatment facilities. Appointment Date/Time Appointment Type Appointme nt Facility Name Oct 31, 2024 08:00 AM AMBULATORY - MEDICINE [facility] [place] [facility] Nov 15, 2024 09:00 AM AMBULATORY - MEDICINE [facility] Nov 22, 2024 09:00 AM AMBULATORY - MEDICINE [facility] [place] [facility] Dec 29, 2024 08:30 AM AMBULATORY - REHAB MEDICIN E [facility] [place] [facility] Jan 09, 2025 02:00 PM AMBULATORY - REHAB MEDICIN E [facility] [place] [facility] Jan 10, 2025 10:00 AM AMBULATORY - MEDICINE [facility] [place] [facility] Jan 24, 2025 08:00 AM AMBULATORY - MEDICINE PA [facility] [place] [facility] Mar 26, 2025 08:00 AM AMBULATORY - MEDICINE [facility] [place] [facility] Mar 30, 2025 11:00 AM AMBULATORY - REHAB MEDICIN E [facility] [place] [facility] Active, Pending, and Scheduled Orders This section includes a listing of several types of active, pending, and scheduled orders, including clinic medications orders, diagnostic test orders, procedure orders and consult orders; where the start date of the order is 45 days before the date of the Encounter or 45 days after the date of theEncounter. The data comes from all [place] treatment facilities. Test Date/Time Test Type Test Details Facility Name Nov 15, 2024 12:00 AM Laboratory - Chemi stry Order URINALYSIS URINE [facility] Nov 15, 2024 12:00 AM Laboratory - Chemi stry Order URINALYSIS CLEAN CATCH URINE [facility] Social History: Smoking Status (Most current) and Tobacco Use (All prior to encounter date) This section includes the most current, and the historical, smoking and tobacco- related health factors from the PA facility where the Encounter took place. Current Smoking Status This section includes the most current smoking, or tobacco-related health factor, from the PA facility where the Encounter took place. Date/Time Current Smoking Status Comment Facil ity Jun 03, 2023 08:58 AM PA-TOBACCO FORMER USER [facility] Tobacco Use History This section includes a history of the smoking, or tobacco-related health factors, that were collected on or before the date of the Encounter. The data comes from the PA facility where the Encounter took place. Date/Time Smoking Status/Tobacco Use Comment F acility Jun 03, 2023 08:58 AM PA-TOBACCO QUIT 15 YRS OR MORE [facility] Advance Directives: All historical and current Section Date Range: From patient's date of to the date document was created. This section includes ALL of a patient's completed or amended [place] Advance and Rescinded Directives. The entries below indicate that a directive exists for the patient, but an actual copy is not included with this document. The data comes from all [place] facilities. Date Advance Directives Provider Source Jul 15, 2023 ADVANCE DIRECTIVE ROGER PEDRAZA Jun 30, 2019 ADVANCE DIRECTIVE CASSIE POWELL [facility] Encounter Notes: All associated encounter notes This section contains the clinical notes associated to the Encounter. Date/Time Encounter Note(s) Provider Source Oct 03, 2024 11:29 AM OPTOMETRY NOTE: LOCAL TITLE: OPTOMETRY NOTE STANDARD TITLE: OPTOMETRY NOTE DATE OF NOTE: OCT 03, 2024@11:29 ENTRY DATE: OCT 03, 2024@11:29:34 AUTHOR: JONATHAN MATAMOROS EXP COSIGNER: URGENCY: STATUS: COMPLETED 79 WHITE MALE NOT OR Last eye exam: 07/2023 [facility] adams Rogelio Reason for Visit/CC: new patient here for a comprehensive eye exam. He reports no problems with vision currently OHx: mild dry AMD OU pseudophakia OU (-) Pain: (-) ELKINS: (-) Diplopia: (-) Flashes: (-) Floaters: (-) Amaurosis Fugax/Tia's: (-) Eye Injury: (+) Eye Surgery: CE OU 2015, YAG OS 2020, entropion repair OU 2012 (-) TBI (-) FOHx: MHx: Code Description R54. Frail elderly ([facility] [id number]) Z77.29 Exposure to potentially hazardous substance ([facility] [id number]) L28.2 Pruritic rash ([facility] [id number]) J42. Chronic bronchitis ([facility] [id number]) J47.9 Bronchiectasis ([facility] [id number]) R63.4 Weight loss ([facility] [id number]) R05.3 Chronic cough ([facility] [id number]) H91.90 Chronic deafness ([facility] [id number]) E11.9 Diabetes mellitus type 2 ([facility] [id number]) E78.5 Hyperlipidemia ([facility] [id number]) I10. Benign essential hypertension ([facility] [id number]) D64.9 Anemia ([facility] [id number]) I25.10 Atherosclerosis of [place] coronary artery ([facility] [id number]) Z86.69 H/O: vertigo ([facility] [id number]) E16.2 Hypoglycemia ([facility] [id number]) R69. Chronic orthostatic hypotension ([facility] [id number]) R41.0 Confusion ([facility] [id number]) Other: SYSTEMIC MEDICATIONS/OCULAR MEDICATIONS: Active and Recently Outpatient Medications (excluding Supplies): Active Outpatient Medications Status 1) MULTIVITAMIN/MINERALS SENIOR FORMULA TAB TAKE 1 TABLET BY ACTIVE MOUTH ONCE DAILY Indication: FOR VITAMIN SUPPLEMENTATION Active Non-VA Medications Status 1) Non-VA ALBUTEROL 90MCG (CFC-F) 200D ORAL INHL 1 PUFF BY ACTIVE MOUTH EVERY 6 HOURS NEEDED Indication: FOR BRONCHOSPASM 2) Non-VA AMMONIUM LACTATE 12% LOTION MODERATE AMOUNT TOPICALLY ACTIVE ONCE DAILY Indication: FOR DRY SKIN 3) Non-VA ASPIRIN 81MG EC TAB 81MG BY MOUTH ONCE DAILY ACTIVE Indication: FOR BLOOD CLOT PREVENTION FOLLOWING PCI 4) Non-VA ATORVASTATIN CALCIUM 80MG TAB 80MG BY MOUTH ONCE ACTIVE DAILY Indication: FOR HIGH CHOLESTEROL 5) Non-VA CETIRIZINE HCL 10MG TAB 10MG BY MOUTH ONCE DAILY ACTIVE Indication: FOR ALLERGIES 6) Non-VA GUAIFENESIN 600MG SA TAB 1200MG BY MOUTH ONCE DAILY ACTIVE Indication: FOR COUGH 7) Non-VA METFORMIN HCL 1000MG TAB 1000MG BY MOUTH ONCE DAILY ACTIVE Indication: FOR TYPE 2 DIABETES MELLITUS 8) Non-VA METOPROLOL SUCCINATE 50MG SA TAB 50MG BY MOUTH ONCE ACTIVE DAILY Indication: FOR HIGH BLOOD PRESSURE 9) Non-VA TRELEGY ELLIPTA 100/62.5/25MCG INH 30D 1 INHALATION ACTIVE BY MOUTH ONCE DAILY Indication: FOR COPD 10) Non-VA TRIAMCINOLONE ACETONIDE 0.1% CREAM THIN LAYER ACTIVE TOPICALLY ONCE DAILY Indication: FOR ITCHING 11 Total Medications ALLERGIES: SULFA DRUGS, SULFAMETHOXAZOLE/TRIMETHOP RIM, INFLUENZA VACCINE, MINOCYCLINE LAST BP: 89/59 (08/22/2024 09:46) PERTINENT LABS: HEMOGLOBIN A1C; BLOOD Julia. Date: 08/15/24 10:14 Test Name Result Units Range HEMOGLOBIN A1C 6.7 H % 4.0 - 5.6 ++++++++++++++++++++++++++ ++++++++++++++++++++++++++ ++++++++++++++++++++++++++ + Patient history, visual acuity, entrance testing, refraction and tonometry all performed now by hazardous waste technician and reviewed by attending provider. Dilation drops instilled by hazardous waste technician after angle assessment and dilation warning given with verbal consent obtained. ++++++++++++++++++++++++++ ++++++++++++++++++++++++++ ++++++++++++++++++++++++++ + Final Rx: OD +1.00 -1.25 x 100 OS +1.00 -1.00 x 090 Add: +2.75 SLE: Lids/Lashes: clear OU Conjunctiva: white and quiet OU Corneas: clear OU Iris: flat and clear OU (-)NVI OU Anterior Chamber: deep and quiet OU Angles: open OU Lens: PCIOL OU DFE: Vitreous: Syneresis OU C/D (Size and Rim Description) OD 0.50 pink & healthy OS 0.45 pink & healthy PPA OU, (-)NVD OU Macula OD flat, small drusen OS flat, small drusen (-)CSME/fluid/hemorrhage OU A/V: normal caliber OU Posterior Pole: clear OU Periphery: Flat and intact (-)NVE, holes, tears, detachments 360 OU Assessment/Plan: 1. Type II diabetes without retinopathy or macular edema OU. Pt ed on findings and importance of good blood glucose control. Monitor annually 2. 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 Pt ed on findings. AREDS2 not indicated currently. Monitor 3. Pseudophakia OU - stable 2. hyperopia OU - order new PALs RTC 1 year or earlier PRN Patient Education: Diabetes: Patient was educated regarding diabetes and related ocular complications including retinopathy and cataract formation as well as other related systemic complications. The importance of good blood sugar control, blood sugar testing as recommended by their PCP and the importance of timely follow up were all emphasized. Macular Degeneration: Patient was educated regarding macular degeneration including both wet and dry varieties as well as the natural history and prognosis of this condition. Education included the role of amsler grid testing , ocular nutraceutical therapy as well as diet and healthy lifestyle choices when applicable. Exclusion criteria includes extremely reduced acuity or cognitive decline for amsler grid testing and other coexisting systemic contraindication for supplements, diet and exercise. patient offered and declined printed medication list Medication Reconciliation: Outpatient: Has the patient been taking medications as documented in the EMLR? YES: The patient has been taking medications as documented in the EMLR. Essential Medication List for Review used to complete this medication reconciliation. INCLUDED IN THIS LIST: Alphabetical list of active outpatient prescriptions dispensed from this [place] (local) and dispensed from another [place] or [facility] facility (remote) as well as inpatient orders [...] whether with a VA or non-VA provider. JLV Link Data on this list may not be complete. Please check [employer] (e-Business) Services. Allergies/ADRs (Tool #5) FACILITY ALLERGY/ADR -------- No Remote Allergy/ADR Data available for this patient [facility] INFLUENZA VACCINE [facility] [place] MINOCYCLINE [facility] SULFA DRUGS [facility] [place] [facility] SULFAMETHOXAZOLE/TRIMETHOP RIM Med Recon NoGlossary (Tool #1) INCLUDED IN THIS LIST: Alphabetical list of active outpatient prescriptions dispensed from this PA (local) and dispensed from another [place] or [facility] facility (remote) as well as inpatient orders (local pending and active), local clinic medications, locally documented non-VA medications, and local prescriptions that have or been discontinued in the past 90 days. Non-VA Meds Last Documented On: Jul 29, 2023 NOTE The display of VA prescriptions dispensed from another PA or [facility] facility (remote) is limited to active outpatient prescription entries matched to National Drug File at the originating site and may not include some items such as investigational drugs, compounds, etc. NOT INCLUDED IN THIS LIST: Medications self-entered by the patient into personal health records (i.e. [employer]) are NOT included in this list. Non-VA medications documented outside this VA, remote inpatient orders (regardless of status) and remote clinic medications are NOT included in this list. The patient and provider must always discuss medications the patient is taking, regardless of where the medication was dispensed or obtained. Non-VA ALBUTEROL 90MCG (CFC-F) 200D ORAL INHL INHALE 1 PUFF BY MOUTH EVERY 6 HOURS NEEDED Patient wants to buy from Non-VA pharmacy. Medication prescribed by Non-VA provider. Indication: FOR BRONCHOSPASM Non-VA AMMONIUM LACTATE 12% LOTION APPLY MODERATE AMOUNT TOPICALLY ONCE DAILY Patient wants to buy from Non-VA pharmacy. Medication prescribed by Non-VA provider. Indication: FOR DRY SKIN Non-VA ASPIRIN 81MG EC TAB TAKE ONE TABLET BY MOUTH ONCE DAILY Patient wants to buy from Non-VA pharmacy. Medication prescribed by Non-VA provider. Indication: FOR BLOOD CLOT PREVENTION FOLLOWING PCI Non-VA ATORVASTATIN CALCIUM 80MG TAB TAKE ONE TABLET BY MOUTH ONCE DAILY Patient wants to buy from Non-VA pharmacy. Medication prescribed by Non-VA provider. Indication: FOR HIGH CHOLESTEROL Non-VA CETIRIZINE HCL 10MG TAB TAKE ONE TABLET BY MOUTH ONCE DAILY Patient wants to buy from Non-VA pharmacy. Medication prescribed by Non-VA provider. Indication: FOR ALLERGIES Non-VA GUAIFENESIN 600MG SA TAB TAKE TWO TABLETS BY MOUTH ONCE DAILY Patient wants to buy from Non-VA pharmacy. Medication prescribed by Non-VA provider. Indication: FOR COUGH Non-VA METFORMIN HCL 1000MG TAB TAKE ONE TABLET BY MOUTH ONCE DAILY Patient wants to buy from Non-VA pharmacy. Medication prescribed by Non-VA provider. Indication: FOR TYPE 2 DIABETES MELLITUS Non-VA METOPROLOL SUCCINATE 50MG SA TAB TAKE ONE TABLET BY MOUTH ONCE DAILY Patient wants to buy from [facility] pharmacy. Medication prescribed by Non-PA provider. Indication: FOR HIGH BLOOD PRESSURE OUTPT MULTIVITAMIN/MINERALS SENIOR FORMULA TAB (Status = Active) TAKE 1 TABLET BY MOUTH ONCE DAILY FOR VITAMIN SUPPLEMENTATION Rx# [id number] Last Released: 09/28/24 Qty/Days Supply: 60/60 Rx Expiration Date: 09/21/25 Refills Remainin Indication: FOR VITAMIN SUPPLEMENTATION Non-PA TRELEGY ELLIPTA 100/62.5/25MCG INH 30D 100/62.5/25MCG INH 30D INHALE 1 INHALATION BY MOUTH ONCE DAILY [facility] Medication prescribed by Non-PA provider. Indication: FOR COPD Non-PA TRIAMCINOLONE ACETONIDE 0.1% CREAM APPLY A THIN LAYER TOPICALLY ONCE DAILY Patient [facility]. Medication prescribed by Non-PA provider. Indication: FOR ITCHING SUPPLIES OUTPT DEPEND FITTED BRIEF,MAXIMUM LARGE (Status = ) USE 1 BRIEF DIRECTED THREE TIMES DAILY NEEDED Rx# [id number] Last Released: 09/06/24 Qty/Days Supply: 288/90 Rx Expiration Date: 09/29/24 Refills Remainin OUTPT DEPEND UNDERWEAR,MAXIMUM,MEN LARGE (Status = ) USE 1 BRIEF DIRECTED THREE TIMES DAILY NEEDED URINARY INCONTINENCE Rx# [id number] Last Released: 11/19/23 Qty/Days Supply: 272/90 Rx Expiration Date: 07/12/24 Refills Remainin Indication: URINARY INCONTINENCE OUTPT GLOVE VINYL MEDIUM PWDR-FREE NONSTERILE (Status = Active) USE GLOVE(S) THREE TIMES DAILY NEEDED INCONTINENCE CARE Rx# [id number] Last Released: 09/06/24 Qty/Days Supply: 100/30 Rx Expiration Date: 06/07/25 Refills Remainin Indication: INCONTINENCE CARE OUTPT TRIAD WOUND DRESSING TOP PASTE (Status = ) APPLY SUFFICIENT AMOUNT TOPICALLY TWICE DAILY FOR BED SORES Rx# [id number] Last Released: 11/17/23 Qty/Days Supply: 71/30 Rx Expiration Date: 07/29/24 Refills Remainin Indication: FOR BED SORES OUTPT UNDERPAD,BED ULTRASORB [id number] M#3136 (Status = Discontinued) USE 1 UNDERPAD TOPICALLY TWICE DAILY NEEDED URINARY INCONTINENCE Rx# [id number] Last Released: 07/13/24 Qty/Days Supply: 80/30 Rx Expiration Date: 10/08/24 Refills Remainin Indication: URINARY INCONTINENCE OUTPT UNDERPAD,BED ULTRASORB [id number] M#3136 (Status = Active) USE 1 UNDERPAD TOPICALLY TWICE DAILY NEEDED URINARY INCONTINENCE Rx# [id number] Last Released: 08/13/24 Qty/Days Supply: 80/30 Rx Expiration Date: 08/12/25 Refills Remainin Indication: URINARY INCONTINENCE EYE: Visual Function Reminder: Normal Vision: 20/25 or better: Unspecified disorder of refraction or accommodation (367.9). /inge/ JONATHAN MATAMOROS OD Director Of Early Childhood Education Signed: 10/03/2024 13:05 JONATHAN MATAMOROS [facility] [place] [facility] Oct 03, 2024 09:09 AM OPTOMETRY TEXTILE DYER NOTE: LOCAL TITLE: OPTOMETRY TEXTILE DYER NOTE STANDARD TITLE: OPTOMETRY TEXTILE DYER NOTE DATE OF NOTE: OCT 03, 2024@09:09 ENTRY DATE: OCT 03, 2024@09:09:17 AUTHOR: KINGSTON HIDALGO EXP COSIGNER: URGENCY: STATUS: COMPLETED Active problems - Computerized Problem List is the source for the followin. Frail elderly 2. Exposure to potentially hazardous substance 3. Pruritic rash 4. Chronic bronchitis 5. Bronchiectasis 6. Weight loss 7. Chronic cough 8. Chronic deafness 9. Diabetes mellitus type 2 10. Hyperlipidemia 11. Benign essential hypertension 12. Anemia 13. Atherosclerosis of [place] coronary artery 14. H/O: vertigo 15. Hypoglycemia 16. Chronic orthostatic hypotension 17. Confusion Active Outpatient Medications (including Supplies): Active Outpatient Medications Status 1) GLOVE VINYL MEDIUM PWDR-FREE NONSTERILE USE GLOVE(S) THREE ACTIVE TIMES DAILY NEEDED Indication: INCONTINENCE CARE 2) MULTIVITAMIN/MINERALS SENIOR FORMULA TAB TAKE 1 TABLET BY ACTIVE MOUTH ONCE DAILY Indication: FOR VITAMIN SUPPLEMENTATION 3) UNDERPAD,BED ULTRASORB [id number] M#3136 USE 1 UNDERPAD ACTIVE TOPICALLY TWICE DAILY NEEDED Indication: URINARY INCONTINENCE Active Non-VA Medications Status 1) Non-VA ALBUTEROL 90MCG (CFC-F) 200D ORAL INHL 1 PUFF BY ACTIVE MOUTH EVERY 6 HOURS NEEDED Indication: FOR BRONCHOSPASM 2) Non-VA AMMONIUM LACTATE 12% LOTION MODERATE AMOUNT TOPICALLY ACTIVE ONCE DAILY Indication: FOR DRY SKIN 3) Non-VA ASPIRIN 81MG EC TAB 81MG BY MOUTH ONCE DAILY ACTIVE Indication: FOR BLOOD CLOT PREVENTION FOLLOWING PCI 4) Non-VA ATORVASTATIN CALCIUM 80MG TAB 80MG BY MOUTH ONCE ACTIVE DAILY Indication: FOR HIGH CHOLESTEROL 5) Non-VA CETIRIZINE HCL 10MG TAB 10MG BY MOUTH ONCE DAILY ACTIVE Indication: FOR ALLERGIES 6) Non-VA GUAIFENESIN 600MG SA TAB 1200MG BY MOUTH ONCE DAILY ACTIVE Indication: FOR COUGH 7) Non-VA METFORMIN HCL 1000MG TAB 1000MG BY MOUTH ONCE DAILY ACTIVE Indication: FOR TYPE 2 DIABETES MELLITUS 8) Non-VA METOPROLOL SUCCINATE 50MG SA TAB 50MG BY MOUTH ONCE ACTIVE DAILY Indication: FOR HIGH BLOOD PRESSURE 9) Non-VA TRELEGY ELLIPTA 100/62.5/25MCG INH 30D 1 INHALATION ACTIVE BY MOUTH ONCE DAILY Indication: FOR COPD 10) Non-VA TRIAMCINOLONE ACETONIDE 0.1% CREAM THIN LAYER ACTIVE TOPICALLY ONCE DAILY Indication: FOR ITCHING 13 Total Medications Allergies: SULFA DRUGS, SULFAMETHOXAZOLE/TRIMETHOP RIM, INFLUENZA VACCINE, MINOCYCLINE All medications including those prescribed by outside VA's, community providers, and all OTC meds were reviewed and reconciled with patient to the best of their abilities. This 79 year old MALE is seen today for New patient complete eye exam Medical, eye, personal, and social history are all reviewed and is contributory or is not contributory to today's visit. Date of last eye exam:08/16/2023 [facility] Location: [facility] Chief Complaint:Patient here today for New patient complete eye exam. suicide screen h/o ARMD&IOL OU(PCO OS) NO vision complaints. History: Pseudophakia OU HISTORY AND REVIEW OF SYSTEMS: (-) Pain: (-) ELKINS: (-) Diplopia: (-) Flashes: (-) Floaters: (-) Amaurosis Fugax/Tia's: (-) Eye Injury: (-) Eye Surgery:IOL OU OS:02/05/2016 OD:03/18/2016, ENTROPION repair OU 2012 (-) TBI (-) FOHx: (-) Smoker/Length of Time/PPD:NONE DIABETIC: YES Last A1C: HEMOGLOBIN A1C PANEL BLOOD (LAV-BLOOD) MARCOS #[id number] Collection time: Aug 15, 2024@10:14 HEMOGLOBIN A1C 6.7 H % 4.0 - 5.6 EYE MEDICATION(S): None VISION AND REFRACTION: Current Rx with last BCVA: OD: +0.50 -1.00 100 OS: +1.50 -1.00 90 ADD:+2.75 PD:62.5 DVA ( )sc ( XX )cc OD:20/60 OS:20/30-- NV OU:20/25-- Manifest Refraction (MRx): OD:+1.00 -1.25 100 20/30+2 OS:+0.50 -1.00 90 20/25+2 ADD: 20/20--OU INT ADD: OU Intraocular Pressure (IOP) Method: Icare Time:11:38am OD:15 OS:10 Pupils: PERRL (-)APD 2.5mm-2.0mm OU EOMs: SAFE OU,(-)Pain/Diplopia CVF(facial, peripheral): FTFC OU ANTERIOR CHAMBER (AC) Penlight or slit lamp (if available) exam appears unremarkable. Pupils are dilated. Dilation and driving precautions reviewed with patient and patient expresses understanding. Medication: 1% Tropicamide, 2.5% Phenylephrine OU Time:11:56am Visual Imaging Performed Today:None Additional Comments:Pal clear duplicate frames. /inge/ KINGSTON SEGURA GWEN [facility] TECHINICIAN Signed: 10/03/2024 11:57 KINGSTON HIDALGO PA [facility]
--- OUTSIDE RECORDS SUMMARY | 2024-10-17 05:30 | XMS_ITS ---
Author Organization [facility] Address [address] [place] [address] Care Team Providers Care Institute Scientist Name Role Phone Ondina Ferreira Primary Care Provider Unavailabl Jerome Loya Unavailable [phone] Encounters Encounter Location Date Provider Diagnosis [address] [address] 10/17/2024 Jerome Nava Plan Of Treatment Next Appt Details Provider Name:Jerome Nava , 09/14/2025 10:30:00 AM, [address] [place], [address], Progress Notes * Gamal GOMEZ MDOB:[birth year] (79 yo M)Acc No.[id number]:10/17/2024 Progress Note Patient: Marie Gamal BOSE Provider: Luisito Nava DPM :1945 A ge:79 Y S ex:Male Date:10/17/2024 Address:[address] [place], [place] [id number] Pcp:Ondina Ferreira Subjective: * Chief Complaints: * [...] Date: 12/18/2023 Generated for Segun johansen/Jamil/Andreaitting on: 0 06/20/2025 01:08 PM EDT
--- OUTSIDE RECORDS SUMMARY | 2024-11-15 05:00 | XMS_ITS | Encounter Summary ---
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 Organization [facility] [place] Address [address] [place] [id number] Care Team Providers Care Paper Ruler Name Role Phone GURPREET PEREZ Primary Care [...] Harding's Name Patient's Relationship to Policy Harding [facility] PLAN [facility] (WNR) MEDICARE ADVANTAGE [facility] ([facility]) Oct 25, 2011 [facility] [id number] GOME[address] PATIENT Selected Encounter This section includes the information on record at [place] for the Encounter. Date/Time Encounter Type Encounter Description Reason Provider Source Nov 15, 2024 09:00 AM OFFICE O/P EST HI 40 MIN PRIMARY CARE/MEDICINE ICD-10-CM R54 Age-related physical debility GURPREET MAYORGA Encounter Template Text not used by [place] Assessments - Encounter Diagnoses This section includes the primary and secondary diagnoses documented for the Encounter. Date/Time Primary/Secondary Diagnosis Diagnosis Name Provider Source Nov 15, 2024 02:17 PM PRIMARY Age-related physical debility GURPREET MAYORGA [place] Nov 15, 2024 02:17 PM SECONDARY Anemia, unspecified VARGAS DAHLGURPREET Skaggs [place] Nov 15, 2024 02:17 PM SECONDARY Athscl heart disease of [place] coronary artery w/o ang pctrs VARGAS DAHLGURPREET Sk[place]gs [place] Nov 15, 2024 02:17 PM SECONDARY Bronchiectasis, uncomplicated VARGAS DAHLGURPREET Sk[place]gs [place] Nov 15, 2024 02:17 PM SECONDARY Essential (primary) hypertension VARGAS NABILAGURPREET Skaggs [place] Nov 15, 2024 02:17 PM SECONDARY Hyperlipidemia, unspecified VARGAS DAHL,GURPREET [place]gs [place] Nov 15, 2024 02:17 PM SECONDARY Type 2 diabetes mellitus without complications VARGAS NABILAGURPREET Skaggs [place] Nov 15, 2024 02:17 PM SECONDARY Unsp dementia, unsp severity, without beh/psych/mood/anx CASEYSAE NABILAGURPREET Skaggs [place] Plan of Treatment: Future Appointments (+ 6 months) and Future Tests (+/- 45 days) The Plan of Treatment section includes future care activities for the patient from all [facility]. This section includes future appointments and future orders which are active, pending or scheduled. Future Appointments This section includes appointments that were scheduled to occur 6 months from the date of the Encounter, up to a maximum of 20 appointments. The data comes from all [facility]. Appointment Date/Time Appointment Type Appointme nt Facility Name Nov 22, 2024 09:00 AM AMBULATORY - MEDICINE [facility] [place] [facility] Dec 29, 2024 08:30 AM AMBULATORY - [facility]ICIN [facility] [place] [facility] Jan 09, 2025 02:00 PM AMBULATORY - [facility]ICIN [facility] [place] [facility] Jan 10, 2025 10:00 AM AMBULATORY - MEDICINE [facility] [place] [facility] Jan 24, 2025 08:00 AM AMBULATORY - MEDICINE [facility] [place] [facility] Mar 26, 2025 08:00 AM AMBULATORY - MEDICINE [facility] [place] [facility] Mar 30, 2025 11:00 AM AMBULATORY - REHAB MEDICIN E [facility] Active, Pending, and Scheduled Orders [...] Laboratory - Chemi stry Order URINALYSIS URINE SP [place] Nov 15, 2024 12:00 AM Laboratory - Chemi stry Order URINALYSIS CLEAN CATCH URINE [facility] Social History: Smoking Status (Most current) [...] Facil ity Aug 22, 2024 09:30 AM AL-TOBACCO NEVER USED [place] Tobacco Use History This section includes a history of the smoking, or tobacco-related health factors, that were collected on or before the date of the Encounter. The data comes from the [place] facility where the Encounter took place. Date/Time Smoking Status/Tobacco Use Comment F acility Aug 22, 2024 09:30 AM AL-TOBACCO NEVER USED [place] Aug 22, 2024 09:30 AM AL-TOBACCO QUIT 15 YRS OR MORE [place] Advance Directives: All historical and current Section [...] Jun 30, 2019 [facility] Encounter Notes: All associated encounter notes This section contains the clinical notes associated to the Encounter. Date/Time Encounter Note(s) Provider Source Nov 15, 2024 09:00 AM PHYSICIAN NOTE: LOCAL TITLE: MD NOTE STANDARD TITLE: PHYSICIAN NOTE DATE OF NOTE: NOV 15, 2024@09:00 ENTRY DATE: NOV 14, 2024@21:01:09 AUTHOR: Adriel PEREZ COSIGNER: URGENCY: STATUS: COMPLETED Pt is 79 y/o M with PMH of HTN, HL, DM2, CAD s/p PCI 2 stents, COPD (chronic bronchitis, bronchiectasis), anemia, hearing loss, dementia f/u called for follow-up after recent hospitalization last [facility] 08/2024 PCP is non-VA Dr Jhon Christianson - q3-4m (next 12/2023) Other providers: --[place]urology Dr Bernadette Landry [facility] [place], f/u next week --pulmonary Dr Ruiz - [phone] [place] [facility] q3-4m, next week f/u [facility] --cardiology Dr Moreira [phone] [facility] not seen recently --non VA podiatry q4-5m --non VA eye [facility] eye [place] all history today provided by and home health aide pt is verbal, NAD Patient discharged from [facility] 10/2024 Now bedridden Would like to get home-based primary care Per patient's 3 hospital visits since 2023 First hospital visit 10/17/2024 evaluated at [facility] ED after fall He hit back of his head Left emergency room without any evaluation Second hospital visit at [facility] 10/20-10/26/2024 COPD exacerbation per Patient's CT head, cervical and thoracic spine showed no acute findings Third hospital visit at [facility] 10/29/2024 Discharge diagnosis Acute metabolic encephalopathy Dementia COVID Hypertension PIYL= baseline creatinine around 1, likely prerenal COPD Since last hospitalization patient mostly bedridden Able to stand up with 100% assistance Using urinal and commode He is discharged home with home health services VNS weekly [employer] daily 8 hours daily PT/OT twice a week Discharge medications reviewed see below and [employer]CH[employer] managing meds compliant with medications #CAD/HL denies CP/SOB/RODAS/palpitations/ortho static hypotension+ /claudication eating 2 meals per day, very good appetite #dementia - restless nights, flying hands , absence spells, behavioral disturbance has f/u with neurology scheduled for next week #deconditioning- 100% assist, 1-2 persons, somedays more cooperative than others PAST MEDICAL HISTORY: --HTN --Chronic orthostatic hypotension --Confusion --H/O: vertigo --HL --Diabetes mellitus type 2 --Hypoglycemia --CAD with stable angina pectoris --Anemia --COPD --Chronic bronchitis --Bronchiectasis Without complication --Pruritic rash --Weight loss --Rt hip OA and impingment --hearing loss Bilateral PAST SURGICAL HISTORY: --vasectomy --PCI s/p stent x2 [facility] ALLERGIES: SULFA DRUGS, SULFAMETHOXAZOLE/TRIMETHOPRIM , INFLUENZA VACCINE MEDICATIONS: Reconciled today --Non-VA ASPIRIN 81MG --Non-VA ATORVASTATIN 80MG Non-VA METOPROLOL SUCCINATE 50MG holding since last admission --Non-VA METFORMIN HCL 1000MG TAB DAILY --Non-VA TRELEGY ELLIPTA 100/62.5/25MCG INH 30D 1 INHALATION ONCE DAILY --Non-VA ALBUTEROL 90MCG (CFC-F) 200D --Non-VA GUAIFENESIN 600MG SA TAB 1200MGDAILY --Non-VA CETIRIZINE HCL 10MG --nebs --MV -non VA trazadone 25mg hs discontinues by due to confussion DEPEND UNDERWEAR,MAXIMUM,MEN LARGE USE 1 BRIEF DIRECTED ACTIVE THREE TIMES DAILY NEEDED URINARY INCONTINENCE UNDERPAD,BED 23IN X 36IN PLASTIC BACK USE 1 PAD TOPICALLY ACTIVE TWICE DAILY NEEDED URINARY INCONTINENCE SOCIAL HISTORY: era [employer] --Occupation:retired --Cohabitation: , lives with his , [place] on one floor, in process of remodeling bathroom, justina approved by the [facility] --Children: one sone (1977), 2 stepchildren --Diet: regular, good appetite --Exercise: None wheelchair-bound --Caffeine: 2c/daily --EtOH:rarely --Tob: quit 29 y/ago, h/o 30xPPDY --MJ: denies --Illicits:denies --Eye: UTD --Dental: dentures --Hospitalizations: 05/2023 rahab at [facility] 06/2023 COVID PNA 07/2024 urosepsis, PNA, PILY 09/2024 COVID, metabolic encephalopathy,PILY, COPD, hypertension ROS: Constitutional: no chills, no ns Eyes: no decreased vision/blurry vision Ears/Nose/Throat: hearing aids Respiratory: chronic cough +/denies wheezing/no SOB Cardiovascular: no CP/palpitations Gastrointestinal: no abdominal pain/bloody/black stools, C+ :no dysuria/hematuria/trouble voiding, hesitancy + MSK: chronic knee pain - not bothersome since bed ridden Neuro: no H/A Skin: no pruritus/rash wheelchair/bedridden bound PHYSICAL EXAM: Vital Signs: today vitals: Reported by [facility] BP 99/57 since last hospitalization metoprolol 50 mg daily held for hypotension FL 78 pO2 95 on RA -supplemental oxygen prn afebrile Gen: pleasant, NAD, verbal LABORATORY: From October 2024 last hospitalization reviewed WBC 3.1 Hemoglobin 10 MCV 96.9 Platelets 52 NT-proBNP 404 Sodium 138 Potassium 4.3 Chloride 112 Bicarb 13 Glucose 141 BUN 30 Creatinine 0.7 GFR 92 UA negative COVID-positive October 29, 2024 --2023-- VIT. B12 (WROX): 378 FOLATE (WR): 3.90 L FERRITIN (WR): 1130 H TIBC (WROX): 210 IRON (WROX): 43 TRANSFERRIN SATURATION: 20.5 Transferrin: 159 L TSH (Access): 1.84 VITAMIN D TOTAL: <13 L ---> CALCIUM: 8.5 HGB A1C (WR): 6.7 H MICROALB/CR RATIO: 7.3 MICROALBUMIN URINE: 0.8 CREATININE URINE: 109.38 PROTEIN,TOTAL: 6.0 ALBUMIN: 3.1 L ALKALINE PHOSPHATASE: 138 BILIRUBIN,TOT.: 1.0 SGOT: 27 SGPT: 36 URIC ACID: 7.9 H CHOLESTEROL: 69 TRIGLYCERIDE: 88 LDL CHOL: 16 CHOL/HDL RATIO: 2.0 HDL: 35 L ASSESSMENT/PLAN: Pt is 79 y/o M with PMH of HTN, HL, DM2, CAD s/p PCI 2 stents, chronic bronchitis, bronchiectasis, anemia, hearing loss, dementia # Dementia #Frail elderly patient. Mostly bedridden since last hospitalization #h/o orthostatic hypotension, fall risk, deconditioning -Fall precautions discussed with patient, home health aide and -Ambulates with a walker, 2 persons assist after recent admission -Continue with home PT -Adequate hydration encouraged -Referral to home-based primary care #HTN: Currently hypotensive-holding Toprol 50 mg #CAD s/p PCI 2 stents, HL: asymptomatic on statin, ASA #[id number] -c/w metformin 1000 mg daily # Mild normocytic anemia and thrombocytopenia: TSH normal, no evidence of iron deficiency, may be side effect of linezolid and cefuroxime, recent COVID Continue with daily multivitamin Repeat CBC in few months #s/p COVID 10/2024 #COPD, chronic bronchitis, bronchiectasis: Clinically stable On Trelegy Ellipta and albuterol as needed GUAIFENESIN, nebs Encouraged use of incentive spirometer Supplemental oxygen prn F/w with non-VA pulmonary #h/o UTI , urosepsis 07/2024 Urine analysis urine culture order placed, in case of worsening mental status, any signs of UTI- will bring urine for urine analysis Healthcare maintenance: --Lipids: LDL 16 (07/2024) --Diabetes: A1c 6.7 (07/2024) --Colon CA (45-75): never, declined --Lung CA: --PSA --AAA (smoker/65): --Influenza (yrly): declined -mother had Bryan syndrome --COVID: declined booster had rash COVID + 10/2024 --PCV20: 05/2023 --PCV23: --RZV (>50yrs, x2): 2019X2 --TDAP: 12/2022 --Hep C screen: declined --HIV screen: --DEXA: --Advanced Directives: DNI/DNR Comanagement - prefers to have most aspects of health maintenance, chronic condition(s) and medication management to non-VA PCP. NO RTC patient referred to home-based primary care , sooner PRN. Virtual ( ), F2F ( x ) ( )non fasting labs ordered prior to f/u ( )fasting labs ordered prior to f/u ( )no labs needed (x )request labs from outside provider (x )request records from outside providers --last PCP note On the date of the encounter, I spent 60 minutes on some or all of the following: Chart reviewed, history, physical examination, treatment planning, education and counseling of the patient/family/caregiver, placing orders, communicating with other healthcare providers, and documentation in the electronic health record. Depression Screening: The patient could not be screened due to moderate or severe cognitive impairment. Please note, although clinical reminders regarding PTSD, depression, alcohol and suicide risk are resolved for one year (due to cognitive impairment), signs or symptoms of any current or future mental health concerns should be attended to as is clinically appropriate. Suicide Screen: C-SSRS Screening The patient could not be screened due to moderate or severe cognitive impairment. Please note, although clinical reminders regarding PTSD, depression, alcohol and suicide risk are resolved for one year (due to cognitive impairment), signs or symptoms of any current or future mental health concerns should be attended to as is clinically appropriate. Medication Reconciliation: Outpatient: Has the patient been taking medications as documented in the EMLR? No: Discrepencies were identified. See below. Essential Medication List for Review used to [...] discontinued in the past 90 days. - Discrepancies were identified, addressed, and discussed with the patient/caregiver at this encounter. Discrepancies: Chart update - All changes in medications, including all non-VA/Herbal/OTC medications were entered into CPRS. - If there were any medications the patient should no longer take, they were discontinued. - The patient/caregiver was instructed to update this list, discard old lists, and take this list to the next appointment, whether with a VA or non-VA provider. /inge/ GURPREET PEREZ MD PHYSICIAN Signed: 11/15/2024 14:17 EDY PEREZ G[place] Nov 15, 2024 08:00 AM TELEHEALTH NOTE: LOCAL TITLE: VA VIDEO CONNECT PRIMARY CARE STANDARD TITLE: TELEHEALTH NOTE DATE OF NOTE: NOV 15, 2024@08:00 ENTRY DATE: NOV 15, 2024@08:00:42 AUTHOR: STEPHANIE DHILLON EXP COSIGNER: URGENCY: STATUS: COMPLETED VA Video Connect (VVC) Standard Documentation VVC Clinician Resources Only: E911 (Emergency Call Relay Center): [phone] [place] [facility] Line - 988 then press #1. CWGiles Suicide Coordinator - [phone], Ext. [phone]; Back-up Ext. [phone] [place] Police, [place], [place] - [phone] Introduction: Visit is being conducted by [place] [employer]. Hulbert identified with 2 identifiers: [X] Full Name [X] Date of [ ] VA ID Card Emergency Plan: Hulbert confirmed and/or provided the following information in case of emergency or technology failure. PATIENT PHONE - PHONE NUMBER [CELLULAR] - Is patient phone number correct, if not, enter below: 's phone number: [address] [phone] 's present location and address for appointment: Same address as above Hulbert's emergency contact name and phone number: Same address as above Hulbert reported that location is private and safe: Yes Informed Consent: informed of the risks and benefits of Telehealth video care. has the right to refuse video services. If refuses video visit, a [id number] visit will be scheduled. Hulbert verbalized consent for this video visit: Yes provided consent for any other persons present for visit: yes, who and relationship to patient: CAROL walker) Secure visit: Visit was locked for security and privacy:Yes Vital Signs Visualized during video visit: /mini DHILLON LPN Licensed Practical Nurse Signed: 11/15/2024 09:25 STEPHANIE DHILLON [place] Nov 09, 2024 10:50 AM ADMINISTRATIVE NOT E: LOCAL TITLE: ADMINISTRATIVE NOTE STANDARD TITLE: ADMINISTRATIVE NOTE DATE OF NOTE: NOV 09, 2024@10:50 ENTRY DATE: NOV 09, 2024@10:50:48 AUTHOR: JUAN JESUS COSIGNER: URGENCY: STATUS: COMPLETED [facility] [address] [place] [phone] * FATEMEH GOMEZ [address] [place] [id number] Date: NOV 09, 2024 re: This is a reminder of your upcoming PCP appt with GURPREET PEREZ. Appointment Date: Oct@09:00 Appointment Type: VA video connect Fasting blood work NON fasting blood work CONFIRMED VVC APPT WITH THE Sincerely, Office Staff for: GURPREET PEREZ Primary Care Provider [facility] [address] [address] T [phone] Upcoming Appointments: 11/15/2024 09:00 CWM/SO/VVC/PACT 5 11/22/2024 09:00 COM CARE-DENTAL GENERAL 09/17/2025 11:00 CWM/SO/PACT 5 10/08/2025 11:30 CWM/NO/OPTOMETRY 1 AM APPOINTMENT ABBREVIATION ORTIZ (SPOPC OR SO = [address]) (GOPC OR GO = [place], [facility]) (NHM or NO = [facility]) (VVC - Video Call) (Tel-X Telephone Visit) (TH - Telehealth) /inge/ JUAN MORRIS Signed: 11/09/2024 10:51 JUAN JESUS
--- OUTSIDE RECORDS SUMMARY | 2024-12-20 06:00 | XMS_ITS ---
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 [place] [facility] [place] [facility] [place] Address [address] [place] [id number] Care Team Providers Care Encephalographer Name Role Phone GURPREET PEREZ Primary Care [...] Name Patient's Relationship to Policy [facility] (WNR) MEDICARE ADVANTAGE [facility] (R) Oct 25, 2011 [facility] [id number] PATIENT Selected Encounter This section includes the information on record at [place] for the Encounter. Date/Time Encounter Type Encounter Description Reason Provider Source Dec 20, 2024 10:00 AM RN CARE EA 15 MIN HH/HOSPICE [facility] Nursing (RN / LP) ICD-10-CM F03.90 Unsp dementia, unsp severity, without beh/psych/mood /anx MARY OVERTON Encounter Template Text not used by [facility] Assessments - Encounter Diagnoses This section includes the primary and secondary diagnoses documented for the Encounter. Date/Time Primary/Secondary Diagnosis Diagnosis Name Provider Source Dec 20, 2024 02:16 PM PRIMARY Unsp dementia, unsp severity, without beh/psych/mood/anx [facility] Dec 20, 2024 02:16 PM SECONDARY Bronchiectasis, uncomplicated [facility] OVERTON [facility] Plan of Treatment: Future Appointments (+ 6 months) and Future Tests (+/- 45 days) The Plan of Treatment section includes future care activities for the patient from [facility] [place] [facility] This section includes future appointments and future orders which are active, pending or scheduled. Future Appointments This section includes appointments that were scheduled to occur 6 months from the date of the Encounter, up to a maximum of 20 appointments. The data comes from all [facility]. Appointment Date/Time Appointment Type Appointme nt Facility Name Dec 29, 2024 08:30 AM [facility] Jan 09, 2025 02:00 PM [facility] Jan 10, 2025 10:00 AM AMBULATORY - MEDICINE [facility] Jan 24, 2025 08:00 AM [facility]IC[facility] Mar 26, 2025 08:00 AM [facility] - [facility] Mar 30, 2025 11:00 AM [facility]UL[facility] Active, Pending, and Scheduled [...] theEncounter. The data comes from all [facility]. Test Date/Time Test Type Test Details Facility Name Nov 15, 2024 12:00 AM Laboratory - Chemi stry Order URINALYSIS URINE [facility] Nov 15, 2024 12:00 AM Laboratory - Chemi stry Order URINALYSIS CLEAN CATCH URINE [facility] Social History: Smoking Status (Most current) and Tobacco Use (All prior to encounter date) This section includes the most current, and the historical, smoking and tobacco- related health factors from the [place] facility where the Encounter took place. Current Smoking Status This section includes the most current smoking, or tobacco-related health factor, from the [place] facility where the Encounter took place. Date/Time Current Smoking Status Comment Facil ity Jun 03, 2023 08:58 AM VA-TOBACCO FORMER USER [facility] Tobacco Use History This section includes a history of the smoking, or tobacco-related health factors, that were collected on or before the date of the Encounter. The data comes from the [place] facility where the Encounter took place. Date/Time Smoking Status/Tobacco Use Comment F acility Jun 03, 2023 08:58 AM [place]-TOBACCO QUIT 15 YRS OR MORE [facility] Advance Directives: All historical and current Section Date Range: From patient's date of to the date document was created. This section includes ALL of a patient's completed or amended [place] Advance and Rescinded Directives. The entries below indicate that a directive exists for the patient, but an actual copy is not included with this document. The data comes from all [place] facilities. Date Advance Directives Provider Source Jul 15, 2023 ADVANCE DIRECTIVE ROGER PEDRAZA Jun 30, 2019 ADVANCE DIRECTIVE CASSIE POWELL [facility] Encounter Notes: All associated encounter notes This section contains the clinical notes associated to the Encounter. Date/Time Encounter Note(s) Provider Source Dec 20, 2024 02:17 PM ADDENDUM: LOCAL TITLE: Addendum STANDARD TITLE: ADDENDUM DATE OF NOTE: DEC 20, 2024@14:17:31 ENTRY DATE: DEC 20, 2024@14:17:31 AUTHOR: MARY OVERTON EXP COSIGNER: URGENCY: STATUS: COMPLETED Berne is alert, oriented, forgetful KASHIA. [employer] SUPERVISOR and present. Reviewed with all program goals. Currently has been able to get out to appt (Dentist yesterday) wtih the assistance from CO[employer] AND ASH SUPERVISOR and his using the transport WC. Berne's home is safely adapted for him. Bathroom is currently being renovated. Berne is in need for a WC ramp out side of door and a grab bar. also could use a WC adapted for his size. Berne and his decide to hold off on services at this time. If 's condition declines they will let [facility] PCP know and will re refer to [facility] program. ALERTING DR Nova PLEASE ORDER IN HOME OT EVAL FOR WC RAMP AND GRAB BARS WELL /es/ Mary BRODY [facility] 3rd grade teacher Signed: 12/20/2024 14:18 Receipt Acknowledged By: 12/27/2024 08:10 /es/ PABLITO PARKER NP NURSE PRACTITIONER for GURPREET PEREZ 12/22/2024 12:15 /inge/ JANINA ROWE RN REGISTERED NURSE --- Original Document --- 12/20/24 [facility] IN-HOME SCREENING: [facility] In Home Screening for admission: 30min Patient identified by verified name/address with picture ID:Yes AND either/or: Address/contact telephone numbers on CPRS chart verified with Patient/Family/Caregiver: Yes Any special directions getting to or into patients residence: No IN HOME SCREENING: Please check [facility] staff in home for screening: [facility] RN Please check who was present during visit: Patient, Spouse Other medical providers: (please list specialists) Community Senior [employer] Consultant. [place] PCP Dr Frereira. Nuerologist [facility] [place]ANNING: Does patient have a Durable Power of Administrative Law Judge? Yes Does patient have an Health Care proxy/MOLST? Yes Would patient/family be willing to provide any copies to [facility]? Yes Home Evaluation: Neat: Yes Cluttered: No Hoarding: No Egress to two exits: Yes Evidence of infestations: No Animals: No(agrees to move animals to a secured area if requested): Weapons:No Weapons locked away and/or patient agrees to secure away from area where care is being provided: Evidence of substance abuse:No Geographical area appear safe:Yes (may ask Patient/Family/Caregiver if there are any issues in the neighborhood that would affect [facility] staff safety) Patient Evaluation: Homebound: No Memory issues: Yes(optional for SW/SECURITIES ATTORNEY to perform cognitive screening) Frequent falls: Yes Frequent hospitalizations: Yes Frequent ER visits: Yes Discussion re: [facility] PCP being main primary care provider, willing to have medications prescribed by [facility] PCP patient agrees Yes Does patient manage his medications: No, Who is assisting with medication management? Maria C CLAY: Yes Vision Difficulties: Yes Self Care deficits(dressing/bathing/i ncontinence):Yes Food in home: Yes Able to prepare meals: No Karnofsky performance Scale: Normal; no complaints; no evidence of disease 100 Able to carry on normal activity; minor signs or symptoms of disease 90 Normal activity with effort; some signs or symptoms of disease 80 Cares for self; unable to carry on normal activity or do work 70 Requires occasional assistance, but is able to care for most personal needs 60 Requires considerable assistance and frequent medical care 50 Disabled; requires special care and assistance 40 Severely disabled; hospitalization indicated although not imminent 30 Very sick; hospitalization necessary; requires active support treatment 20 Moribund; fatal processes progressing rapidly 10 Score50 Equipment in home Select all that apply: Commodes/elevated toilet seat, Hospital bed, Rails, Shower/tub chair, Walkers Caregiver Need Evaluation: Does patient live alone: NO If no caregiver identified and patient lives alone,please indicate if patient is capable of: Getting out of home in an emergency: No Able to call 911 for medical emergency: No Able to take medications safely: No Able to adjust medication doses if instructed to do so: No Able to drive/arrange transportation to specialist appts/procedures/picking up medications etc: No Does patient have a caregiver? Yes Is caregiver willing to provide support (i.e. Prefill/adjust meds/take patient to specialty appointments, etc)Yes Caregiver Name:Maria C Gomez Relationship to patient: Caregiver address:same as Caregiver telephone #same as Other support in home: Community VNAs:Yes(if yes describe what for/estimated length of service) [facility] nursing weekly PT OT 2x a week Community services(Elder care or PACE type programs): No(if yes,describe why Elder Services are in home, and if PACE type program would not be candidate for [facility]) Home Health Aides: Yes If Yes: VA or non VA and hours/days at home At home VA Private paid help: No If Yes hours/days at home 56hrs weekly Mental Health Evaluation: Patient sees [facility] MH providers No Last appt: Next appt: Check boxes for below: Depression symptoms PTSD Patient Input to Care Planning Process: What does the patient/caregiver see as major health problem(s) COPD What does patient/caregiver perceive as major need(s)? Needs a small WC ramp out side front door and grab rails outside. New WC How does patient/caregiver think that [facility] can assist the patient? Does not need services at this time SERVICES NEEDED 1. Candidate accepting of [facility] Special Population PACT program No Currently is able to get out to appts with the assistance of his Cg and use of a transport WC. is working with PT and OT REVIEW OF [facility] PROGRAM Discussed the following with /caregiver: - Program description and criteria Yes - Composition of team Yes - Frequency of produce team member visits Yes - Copays, if applicable $15 per visit Yes - Exempt/Non Exempt medications Yes Additional Notes: is alert, oriented, forgetful KASHIA. CO[employer] AND [employer]SH SUPERVISOR and present. Reviewed with all program goals. Currently has been able to get out to appt (Dentist yesterday) wtih the assistance from [employer] SUPERVISOR and his using the transport WC. 's home is safely adapted for him. Bathroom is currently being renovated. Berne is in need for a WC ramp out side of door and a grab bar. also could use a WC adapted for his size. Berne and his decide to hold off on services at this time. If 's condition declines they will let [facility] PCP know and will re refer to [facility] program. /inge/ Mary BRODY [facility] 3rd grade teacher Signed: 12/20/2024 14:16 Receipt Acknowledged By: 12/20/2024 15:19 /inge/ BETZAIDA FIERRO [facility] BOX BRANDER 12/21/2024 10:24 /inge/ Karina Ward RN [facility] 3rd grade teacher 12/22/2024 ADDENDUM STATUS: COMPLETED OT consult placed and held for PCP signature. /inge/ JANINA ROWE RN REGISTERED NURSE Signed: 12/22/2024 12:15 MARY OVERTON [place] [facility] [place] [facility] Dec 20, 2024 02:03 PM [facility] NOTE: LOCAL TITLE: [facility] IN-HOME SCREENING STANDARD TITLE: [facility] NOTE DATE OF NOTE: DEC 20, 2024@14:03 ENTRY DATE: DEC 20, 2024@14:03:30 AUTHOR: MARY OVERTON EXP COSIGNER: URGENCY: STATUS: COMPLETED [facility] IN-HOME SCREENING Has [facility] In Home Screening for admission: 30min Patient identified by verified name/address with picture ID:Yes AND either/or: Address/contact telephone numbers on CPRS chart verified with Patient/Family/Caregiver: Yes Any special directions getting to or into patients residence: No IN HOME SCREENING: Please check [facility] staff in home for screening: [facility] RN Please check who was present during visit: Patient, Spouse Other medical providers: (please list specialists) Community Senior [employer] Consultant. [place] PCP Dr Ferreira. Nuerologist [facility] PLANNING: Does patient have a Durable Power of Administrative Law Judge? Yes Does patient have an Health Care proxy/MOLST? Yes Would patient/family be willing to provide any copies to [facility]? Yes Home Evaluation: Neat: Yes Cluttered: No Hoarding: No Egress to two exits: Yes Evidence of infestations: No Animals: No(agrees to move animals to a secured area if requested): Weapons:No Weapons locked away and/or patient agrees to secure away from area where care is being provided: Evidence of substance abuse:No Geographical area appear safe:Yes (may ask Patient/Family/Caregiver if there are any issues in the neighborhood that would affect [facility] staff safety) Patient Evaluation: Homebound: No Memory issues: Yes(optional for SW/SECURITIES ATTORNEY to perform cognitive screening) Frequent falls: Yes Frequent hospitalizations: Yes Frequent ER visits: Yes Discussion re: [facility] PCP being main primary care provider, willing to have medications prescribed by [facility] PCP patient agrees Yes Does patient manage his medications: No, Who is assisting with medication management? Maria C CLAY: Yes Vision Difficulties: Yes Self Care deficits(dressing/bathing/i ncontinence):Yes Food in home: Yes Able to prepare meals: No Karnofsky performance Scale: Normal; no complaints; no evidence of disease 100 Able to carry on normal activity; minor signs or symptoms of disease 90 Normal activity with effort; some signs or symptoms of disease 80 Cares for self; unable to carry on normal activity or do work 70 Requires occasional assistance, but is able to care for most personal needs 60 Requires considerable assistance and frequent medical care 50 Disabled; requires special care and assistance 40 Severely disabled; hospitalization indicated although not imminent 30 Very sick; hospitalization necessary; requires active support treatment 20 Moribund; fatal processes progressing rapidly 10 Score50 Equipment in home Select all that apply: Commodes/elevated toilet seat, Hospital bed, Rails, Shower/tub chair, Walkers Caregiver Need Evaluation: Does patient live alone: NO If no caregiver identified and patient lives alone,please indicate if patient is capable of: Getting out of home in an emergency: No Able to call 911 for medical emergency: No Able to take medications safely: No Able to adjust medication doses if instructed to do so: No Able to drive/arrange transportation to specialist appts/procedures/picking up medications etc: No Does patient have a caregiver? Yes Is caregiver willing to provide support (i.e. Prefill/adjust meds/take patient to specialty appointments, etc)Yes Caregiver Name:Maria C Gomez Relationship to patient: Caregiver address:same as Caregiver telephone #same as Other support in home: Community VNAs:Yes(if yes describe what for/estimated length of service) [facility] nursing weekly PT OT 2x a week Community services(Elder care or PACE type programs): No(if yes,describe why Elder Services are in home, and if PACE type program would not be candidate for [facility]) Home Health Aides: Yes If Yes: VA or non VA and hours/days at home At home VA Private paid help: No If Yes hours/days at home 56hrs weekly Mental Health Evaluation: Patient sees [facility] MH providers No Last appt: Next appt: Check boxes for below: Depression symptoms PTSD Patient Input to Care Planning Process: What does the patient/caregiver see as major health problem(s) COPD What does patient/caregiver perceive as major need(s)? Needs a small WC ramp out side front door and grab rails outside. New WC How does patient/caregiver think that [facility] can assist the patient? Does not need services at this time SERVICES NEEDED 1. Candidate accepting of [facility] Special Population PACT program No Currently is able to get out to appts with the assistance of his Cg and use of a transport WC. Berne is working with PT and OT REVIEW OF [facility] PROGRAM Discussed the following with /caregiver: - Program description and criteria Yes - Composition of team Yes - Frequency of produce team member visits Yes - Copays, if applicable $15 per visit Yes - Exempt/Non Exempt medications Yes Additional Notes: is alert, oriented, forgetful KASHIA. [employer] AND [employer]SH SUPERVISOR and present. Reviewed with all program goals. Currently Berne has been able to get out to appt (Dentist yesterday) wtih the assistance from [employer] AND [employer]SH SUPERVISOR and his using the transport WC. 's home is safely adapted for him. Bathroom is currently being renovated. is in need for a WC ramp out side of door and a grab bar. Berne also could use a WC adapted for his size. Berne and his decide to hold off on services at this time. If Berne's condition declines they will let [facility] PCP know and will re refer to [facility] program. /inge/ Mary BRODY [facility] 3rd grade teacher Signed: 12/20/2024 14:16 Receipt Acknowledged By: 12/20/2024 15:19 /es/ BETZAIDA FIERRO [facility] BOX BRANDER 12/21/2024 10:24 /es/ Karina Ward RN [facility] 3rd grade teacher 12/20/2024 ADDENDUM STATUS: COMPLETED is alert, oriented, forgetful KASHIA. CO[employer] AND ASH SUPERVISOR and present. Reviewed with all program goals. Currently has been able to get out to appt (Dentist yesterday) wtih the assistance from CO[employer] AND ASH SUPERVISOR and his using the transport WC. Berne's home is safely adapted for him. Bathroom is currently being renovated. is in need for a WC ramp out side of door and a grab bar. also could use a WC adapted for his size. and his decide to hold off on services at this time. If 's condition declines they will let [facility] PCP know and will re refer to [facility] program. ALERTING DR Nova PLEASE ORDER IN HOME OT EVAL FOR WC RAMP AND GRAB BARS WELL /inge/ Mary BRODY [facility] 3rd grade teacher Signed: 12/20/2024 14:18 Receipt Acknowledged By: * AWAITING SIGNATURE * GURPREET PEREZ 12/22/2024 12:15 /inge/ JANINA ROWE RN REGISTERED NURSE 12/22/2024 ADDENDUM STATUS: COMPLETED OT consult placed and held for PCP signature. /inge/ JANINA ROWE RN REGISTERED NURSE Signed: 12/22/2024 12:15 MARY OVERTON [facility]
--- OUTSIDE RECORDS SUMMARY | 2024-12-29 04:30 | XMS_ITS | Encounter Summary ---
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 Organization [place] Address [address] [place] [address] Care Team Providers Care Pocket Cutter Name Role Phone GURPREET PEREZ Primary [...] Policy Harding [facility] (WNR) MEDICARE ADVANTAGE [facility] (R) Oct 25, 2011 [facility] [id number] PATIENT Selected Encounter This section includes the information on record at [place] for the Encounter. Date/Time Encounter Type Encounter Description Reason Provider Source Dec 29, 2024 08:30 AM OT EVAL LOW COMPLEX 30 MIN OCCUPATIONAL THERAPY ICD-10-CM F03.90 Unsp dementia, unsp severity, without beh/psych/moo d/anx PRITI GONZALES Encounter Template Text not used by VA Assessments - Encounter Diagnoses This section includes the primary and secondary diagnoses documented for the Encounter. Date/Time Primary/Secondary Diagnosis Diagnosis Name Provider Source Dec 29, 2024 09:03 AM PRIMARY Unsp dementia, unsp severity, without beh/psych/mood/ anx [facility] Plan of Treatment: Future Appointments (+ 6 months) and Future Tests (+/- 45 days) The Plan of Treatment section includes future care activities for the patient from all [place] [facility]. This section includes future appointments and future orders which are active, pending or scheduled. Future Appointments This section includes appointments that were scheduled to occur 6 months from the date of the Encounter, up to a maximum of 20 appointments. The data comes from all [facility]. Appointment Date/Time Appointment Type Appointme nt Facility Name Jan 09, 2025 02:00 PM [facility]UL[facility] Jan 10, 2025 10:00 AM AM[facility]UL[facility] Jan 24, 2025 08:00 AM AM[facility]ULATORY - [facility]IC[facility] [place] [facility] Mar 26, 2025 08:00 AM AM[facility]UL[facility]ORY [facility] [place] [facility] Mar 30, 2025 11:00 AM [facility]UL[facility] Active, Pending, and Scheduled Orders This section includes a listing of several types of active, pending, and scheduled orders, including clinic medications orders, diagnostic test orders, procedure orders and consult orders; where the start date of the order is 45 days before the date of the Encounter or 45 days after the date of theEncounter. The data comes from all [facility]. Test Date/Time Test Type Test Details Facility Name Nov 15, 2024 12:00 AM Laboratory - Chemi stry Order URINALYSIS URINE [facility] Nov 15, 2024 12:00 AM Laboratory - Chemi stry Order URINALYSIS CLEAN CATCH URINE [facility] Social History: Smoking Status [...] place. Date/Time Current Smoking Status Comment Deana mejias Jun 03, 2023 08:58 AM VA-TOBACCO FORMER [...] AM VA-TOBACCO QUIT 15 YRS OR MORE [facility] [...] Date/Time Encounter Note(s) Provider Source Dec 29, 2024 08:30 AM OCCUPATIONAL MEDIC INE CONSULT: [facility] TITLE: CONSULT REPORT/OCCUPATIONAL THERAPY STANDARD TITLE: OCCUPATIONAL MEDICINE CONSULT DATE OF NOTE: DEC 29, 2024@08:30 ENTRY DATE: DEC 29, 2024@08:36:31 AUTHOR: PRITI GONZALES COSIGNER: GURPREET PEREZ URGENCY: STATUS: COMPLETED Initial Evaluation date: Dec Treatment time: Diagnosis: Provider: OT Treatment Precautions: Patient identified by full name and date of [place] [employer] ([facility]) Standard Documentation [facility] Clinician Resources Only: E911 (Emergency Call Relay Center): [phone] National Veterans Crisis Line - 988 then press #1. MAYURI Suicide Coordinator [phone], Ext. [phone]; Back-up Ext. [phone] MAYURI Bagley [place] [phone] Introduction: Visit is being conducted by [employer]. [place] identified with 2 identifiers: [X] Full Name [X] Date of [ ] VA ID Card Emergency Plan: confirmed and/or provided the following information in case of emergency or technology failure. PATIENT PHONE - PHONE NUMBER [CELLULAR] - Is patient phone number correct, if not, enter below: [place]'s phone number: FAT[address] GOMEZ [address], [place], [address] 's present location and address for appointment: as above 's emergency contact name and phone number: [phone] [place] reported that location is private and safe: YesCHICA Joyner Informed Consent: [place] informed of the risks and benefits of Telehealth video care. [place] has the right to refuse video services. If refuses video visit, a drek-bv-frjy visit will be scheduled. verbalized consent for this video visit: Yes provided consent for any other persons present for visit: Yes If yes, who and relationship to patient: Secure visit: Visit was locked for security and privacy:Yes Subjective: I love my new bathroom Pain: offered no complaints Objective: Other:Per [facility] note dated 12/20/24, in need of HOME OT EVAL FOR WC RAMP AND GRAB BARS. Asking OT to please assist if appropriate. Thank you. Focus 1 chart reviewed 2 [facility] indicate need for ramp, referral generated [facility], with front and rear access, is dependent on /support of caregiver to exit home. Doorway currently has self purchased threshold step/small aluminum ramp, although does not adequately fit space. The exit door, leads to a shared walkway and, unable to accomodate a standard set up. SETTER UP assisted with viewing property during this visit. Space to address exit, walking ~ 6-8' Assessment: seated at table in wc with , and SETTER UP in background provides verbal permission for their support with this video call. Home is well set up to accomodate his needs at wc level, has hospita bed, to aid positioning, respiratory enhancement, bathroom remodel complete with wider doorways, grab bars, walk in shower with minimal lip, handicap sink, ADA height toilet with 2 off set rails on either side of toilet. Uses a 360 swivel seat to acces shower. [employer] is with assist. Plan: LTG Improve access as able, space is complex with limitation due to space and adjacent to a shared walkway with other condo members STG Ramp: vendor to evaluate property for any feasable improvements give space limitations/set up adjacent to shared space. STG is scheduled for in person visit with OT on 01/02/25 @ 2pm to evaluate seating needs Discharge once all goals met /inge/ PRITI GONZALES OTR/L OCCUPATIONAL THERAPIST Signed: 12/29/2024 09:03 /inge/ PABLITO PARKER NP NURSE PRACTITIONER Cosigned: 01/01/2025 12:51 for MD PHYSICIAN [facility]STELLON [facility]
--- OUTSIDE RECORDS SUMMARY | 2025-01-09 10:00 | XMS_ITS | Encounter Summary ---
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 Organization [place] Address [address] [place] [id number] Care Team Providers Care Creative Services Manager Name Role Phone GURPREET PEREZ Primary [...] Patient's Relationship to Policy Harding [facility] PLAN [facility] (WNR) MEDICARE ADVANTAGE [facility] (R) Oct 25, 2011 [facility] [id number] PATIENT Selected Encounter This section includes the information on record at [place] for the Encounter. Date/Time Encounter Type Encounter Description Reason Provider Source Jan 09, 2025 02:00 PM OT EVAL LOW COMPLEX 30 MIN OCCUPATIONAL THERAPY ICD-10-CM F03.90 Unsp dementia, unsp severity, without beh/psych/moo d/anx PRITI GONZALES Encounter Template Text not used by VA Assessments - Encounter Diagnoses This section includes the primary and secondary diagnoses documented for the Encounter. Date/Time Primary/Secondary Diagnosis Diagnosis Name Provider Source Jan 09, 2025 02:50 PM PRIMARY Unsp dementia, unsp severity, without beh/psych/mood/ anx PRITI GONZALES [facility] Jan 09, 2025 02:50 PM SECONDARY Age-related physical debility PRITI GONZALES [facility] Plan of Treatment: Future Appointments (+ 6 months) and Future Tests (+/- 45 days) The Plan of Treatment section includes future care activities for the patient from all [place] [facility]. This section includes future appointments and future orders which are active, pending or scheduled. Future Appointments This section includes appointments that were scheduled to occur 6 months from the date of the Encounter, up to a maximum of 20 appointments. The data comes from all [place] treatment facilities. Appointment Date/Time Appointment Type Appointme nt Facility Name Jan 10, 2025 10:00 AM AMBULATORY - MEDICINE [facility] Jan 24, 2025 08:00 AM AMBULATORY - MEDICINE [facility] Mar 26, 2025 08:00 AM AMBULATORY - MEDICINE [facility] Mar 30, 2025 11:00 AM AMBULATORY - REHAB MEDICIN E [facility] Social History: Smoking Status [...] AM ME-TOBACCO QUIT 15 YRS OR MORE [facility] [...] Jun 30, 2019 ADVANCE DIRECTIVE CASSIE POWELL [place] CNTRL W[facility] Encounter Notes: All associated encounter notes This section contains the clinical notes associated to the Encounter. Date/Time Encounter Note(s) Provider Source Jan 09, 2025 02:00 PM OCCUPATIONAL MEDIC INE CONSULT: LOCAL TITLE: CONSULT REPORT/OCCUPATIONAL THERAPY STANDARD TITLE: OCCUPATIONAL MEDICINE CONSULT DATE OF NOTE: JAN 09, 2025@14:00 ENTRY DATE: JAN 09, 2025@14:34:43 AUTHOR: PRITI GONZALES COSIGNER: GURPREET PEREZ URGENCY: STATUS: COMPLETED Initial Evaluation date: Dec Progress Note Date: 01/09/25 Treatment #: Eval/seating Treatment time: Diagnosis: Dementia in other diseases classified elsewhere, severe, with other behavioral disturbance(ICD-10-CM F02.C18) Provider: PCP Janice OT Treatment Precautions: Fall risk L knee, unstable/gives out spontaneously Patient identified by full name and date of Subjective: We are here today to look at upgrade in seating options so he can propel himself. [place] presents today with and RN HEMODIALYSIS CHARGE Pain: Knee pain/instability Objective: [place] was referred by PCP for Transport/basic manual chair was evaluated on 12/29/24 for ramp, entry is complex and vendor to evaluate property for suggestions, due to space constraints. Focus 1 chart reviewed 2 Discussed seating options, trial light weight Catalyst, demonstrated ability to navigate chair although with minimal attention to his surroundings cuing needed for when turning, backing up and for obstacles within the environment. Reviewed options for chair, better served by upgrade in light-weight chair, with greater positioning for comfort for using in the community, transport chair to be used at home, manual chair will promote max safety for use on uneven surfaces propelled by caregiver, minimal self-propelling recommended for functional mobility. Primarily to increase access to community with greater comfort and safety propelled by caregiver Education provided on [place] [employer]: currently have and actively using transport chair propelled by caregiver. Transport chair is currently used in the home to get to and from the bathroom, around home. Note L knee unstable when completing sit to stand transfer, contributes to a risk for falls. Assessment: Trialed in [facility] Mob[facility] chair, recommend upgrade to tension adjustable back, seat cushion/pressure management, anti-tippers, single post height adjustable arm rests with full length pads. [place] selected color tameka blue and [employer] patch. 17 x 17. Chair to max comfort, increased access within the community. Plan: LTG Improve access to community, with greater comfort, pressure manamgement to be propelled by caregiver. STG Order for Catalyst 17 x 17 with custom add ons. STG is scheduled for in person visit with OT on 01/02/25 @ 2pm to evaluate seating needs MET Discharge once all goals met /inge/ ROMAN GREGORY/L OCCUPATIONAL THERAPIST Signed: 01/09/2025 14:50 /inge/ GURPREET PEREZ MD PHYSICIAN Cosigned: 01/10/2025 00:29 PRITI GONZALES CN[facility]
--- OUTSIDE RECORDS SUMMARY | 2025-03-30 07:00 | XMS_ITS ---
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 Organization [place] Address [address] [place] [address] Care Team Providers Care Armament Aircraft Mechanic Name Role Phone GURPREET PEREZ Primary [...] to Policy Harding [facility] (WNR) MEDICARE ADVANTAGE [facility] Oct 25, 2011 [facility] [id number] PATIENT Selected Encounter This section includes the information on record at [place] for the Encounter. Date/Time Encounter Type Encounter Description Reason Provider Source Mar 30, 2025 11:00 AM WHEELCHAIR MNGMENT TRAINING OCCUPATIONAL THERAPY ICD-10-CM F02.C18 Dem in other dis classd elswhr, sev, with other beh distrb LESLYE JAY IHLuisito Encounter Template Text not used by VA Assessments - Encounter Diagnoses This section includes the primary and secondary diagnoses documented for the Encounter. Date/Time Primary/Secondary Diagnosis Diagnosis Name Provider Source Mar 30, 2025 11:59 AM PRIMARY Dem in other dis classd elswhr, sev, with other beh distrb LESLYE JAY [facility] Plan of Treatment: Future Appointments (+ 6 months) and Future Tests (+/- 45 days) The Plan of Treatment section includes future care activities for the patient from all [place] [facility]. This section includes future appointments and future orders which are active, pending or scheduled. Future Appointments This section includes appointments that were scheduled to occur 6 months from the date of the Encounter, up to a maximum of 20 appointments. The data comes from all [place] treatment facilities. Appointment Date/Time Appointment Type Appointme nt Facility Name Sep 17, 2025 11:00 AM AMBULATORY - MEDICINE [facility] Social History: Smoking Status (Most [...] Facil ity Jun 03, 2023 08:58 AM [place]-TOBAC[place] FORMER USER [facility] Tobacco Use History This section includes a history of the smoking, or tobacco-related health factors, that were collected on or before the date of the Encounter. The data comes from the [place] facility where the Encounter took place. Date/Time Smoking Status/Tobacco Use Comment F acility Jun 03, 2023 08:58 AM [place]-TO[place] QUIT 15 YRS OR MORE [facility] Advance Directives: All historical and [...] Jun 30, 2019 ADVANCE DIRECTIVE CASSIE POWELL [facility] Encounter Notes: All associated encounter notes This section contains the clinical notes associated to the Encounter. Date/Time Encounter Note(s) Provider Source Mar 30, 2025 11:44 AM OCCUPATIONAL THERAPY NOTE: LOCAL TITLE: OCCUPATIONAL THERAPY STANDARD TITLE: OCCUPATIONAL THERAPY NOTE DATE OF NOTE: MAR 30, 2025@11:44 ENTRY DATE: MAR 30, 2025@11:44:21 AUTHOR: PAMELA JAY COSIGNER: PRITI GONZALES URGENCY: STATUS: COMPLETED OCCUPATIONAL THERAPY Has ADDENDA Initial Evaluation date: Dec Progress Note Date: 03/29/2025 Treatment time: 30 Diagnosis: Dementia in other diseases classified elsewhere, severe, with other behavioral disturbance(ICD-10-CM F02.C18) S: Premier was seen in OT gym for education regarding his new Ki-mobility manual chair his and caregiver were present. O: was transferred into his ki mobility chair by therapist. Premier s managed care provider and were educated on all aspects of the chair. pushed the chair around in the gym and did fairly well however needed guidance when he couldn't straighten the chair out. Veterans inquiring about the [employer] emblem not being on the chair. Ki-mobility to be contacted to request one be mailed to veterans home. A: has supervision at all times, he was using just a transport chair before however this chair will allow much greater accessibility in the community and with Supervision the can assist in pushing his chair as well. Veterans was given contact information if the chair should need repairs. P: Plan is to have call OT dept. if repairs are needed for chair. 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 /ROMAN Brito/Glen OCCUPATIONAL THERAPIST Signed: 03/30/2025 12:17 PAMELA JAY [place] [facility]
--- OUTSIDE RECORDS SUMMARY | 2025-06-20 08:00 | XMS_ITS | Continuity of Care Document ---
Author Name [facility] Organization [facility] Care Team Providers Care Cardiology Physician Assistant Name Role Phone [facility] Unavailable Unavailable Problems Combined list of problems [...] [facility] [place] Atherosclerosis of kake coronary artery Active 10/25/19 18 Condition Jun 05, 2023 Entered By: KHUSHBOO SCHRADER Comment: of kake heart with stable angina pectorisOct 2022 Entered By: GURPREET MAYORGA Comment: s/p PCI 2 stents [facility] Benign essential hypertension Active 10/25/19 18 Condition [facility] Diabetes mellitus type 2 Active 10/25/19 18 Condition [facility] Hyperlipidemia Active 10/25/19 18 Condition [facility] Dementia Active Condition [place] Exposure to potentially hazardous substance Active Condition Jan 04, 2024 Entered By: RENY MILTON Comment: Connect Snomed Code to ICD 10 Code refer to note dated 07/29/23 [facility] Frail elderly Active Condition [facility] Diagnosis: ICD-10-CM F02.C18 Dem in other dis classd elswhr, sev, with other beh distrb Active Diagnosis [facility] Diagnosis: ICD-10-CM F03.90 Unsp dementia, unsp severity, without beh/psych/mood/anx Active Diagnosis [facility] [place] Diagnosis: ICD-10-CM R54 Age-related physical debility Active Diagnosis [facility] Diagnosis: ICD-10-CM J44.9 Chronic obstructive pulmonary disease, unspecified Active Diagnosis [facility] Diagnosis: ICD-10-CM Z46.0 Encounter for fit/adjst of spectacles and contact lenses Active Diagnosis [facility] Diagnosis: ICD-10-CM E11.9 Type 2 diabetes mellitus without complications Active Diagnosis [facility] Diagnosis: ICD-10-CM D64.9 Anemia, unspecified Active Diagnosis [place] Diagnosis: ICD-10-CM A41.9 Sepsis, unspecified organism Active Diagnosis [place] Diagnosis: ICD-10-CM Z46.1 Encounter for fitting and [...] FOR VITAMIN SUPPLEME NTATION ORAL ACTIVE 09/21/2025 [id number] GURPREET MERCADO 2023 [address] [place] TRIAMCINOLO [...] adverse reactions to drug (finding) active 3 [facility] [place] [facility] MINOCYCLINE Propensity to adverse reactions to drug (finding) Delirium, Tremor SEVERE active 3 [facility] [place] [facility] SULFA DRUGS Propensity to adverse reactions to drug (finding) Eruption active 3 [facility] [place] [facility] SULFAMETHOXA ZOLE/TRIMETH OPRIM Propensity to adverse reactions to drug (finding) active 3 [facility] [place] [facility] Results Combined list of recent [...] Aug 22, 2024 10:17 AM Reporting Lab: [facility] [address] [facility] [address] Performing Lab: [facility] [address] [facility] [address] [facility] LD RETICULOC YTES RETICULOCYT ES [#/VOLUME] IN BLOOD 2.6 0.6 - 2.0 08/22 H Specimen Type: BLOOD Comment: Smear reviewed, auto CBC w/Diff accepted. Ordering Provider: COURTNEY FAROOQ Report Released Date/Time: Aug 22, 2024 10:17 AM Reporting Lab: [facility] [address] [facility] [address] Performing Lab: [facility] [place] [facility] [address] [facility] [address] [place] RETICULOC YTES RETICULOCYT ES/100 ERYTHROCYTE S IN BLOOD BY AUTOMATED COUNT 91.6 10*3/u L 30.0 - 90.0 08/22 H Specimen Type: BLOOD Comment: Smear reviewed, auto CBC w/Diff accepted. Ordering Provider: COURTNEY FAROOQ Report Released Date/Time: Aug 22, 2024 10:17 AM Reporting Lab: [facility] [place] [facility] [address] [facility] [address] Performing Lab: [facility] [place] [facility] [address] [facility] [address] [place] RETICULOC YTES HEMOGLOBIN [ENTITIC MASS] IN RETICULOCYT ES BY AUTOMATED COUNT 29.6 27.9 - 42.0 08/22 Specimen Type: BLOOD Comment: Smear reviewed, auto CBC w/Diff accepted. Ordering Provider: COURTNEY FAROOQ Report Released Date/Time: Aug 22, 2024 10:17 AM Reporting Lab: [facility] [address] [facility] [address] Performing Lab: [facility]RN [facility] [address] [facility] [address] [place] IRON & TIBC PANEL IRON BINDING CAPACITY [MASS/VOLUM E] IN SERUM OR PLASMA 210 ug/dL 204 - 475 08/22 Specimen Type: SERUM No comment entered. Ordering Provider: COURTNEY FAROOQ Report Released Date/Time: Aug 22, 2024 10:17 AM Reporting Lab: [facility] [place] [facility] [address] [facility] [address] Performing Lab: [facility]RN [facility] [address] [facility] [address] [place] IRON & TIBC PANEL IRON [MASS/VOLUM E] IN SERUM OR PLASMA 43 ug/dL 40 - 160 08/22 Specimen Type: SERUM No comment entered. Ordering Provider: COURTNEY FAROOQ Report Released Date/Time: Aug 22, 2024 10:17 AM Reporting Lab: [facility] [address] [facility] [address] Performing Lab: [facility] [place] [facility] [address] [facility] [address] [place] IRON & TIBC PANEL IRON/IRON BINDING CAPACITY.TO CECY [MASS RATIO] IN SERUM OR PLASMA 20.5 20.0 - 50.0 08/22 Specimen Type: SERUM No comment entered. Ordering Provider: COURTNEY FAROOQ Report Released Date/Time: Aug 22, 2024 10:17 AM Reporting Lab: [facility] [place] [facility] [address] [facility] [address] Performing Lab: [facility] [place] [address] [address] [place] IRON & TIBC PANEL TRANSFERRIN [MASS/VOLUM E] IN SERUM OR PLASMA 159 mg/dL 200 - 360 08/22 L Specimen Type: SERUM No comment entered. Ordering Provider: COURTNEY FAROOQ Report Released Date/Time: Aug 22, 2024 10:17 AM Reporting Lab: [facility] [place] [facility] [address] [facility] [address] Performing Lab: [facility] [place] [address] [address] [place] FERRITIN FERRITIN [MASS/VOLUM E] IN SERUM OR PLASMA 1130 ng/mL 20 - 300 08/22 H Specimen Type: SERUM No comment entered. Ordering Provider: COURTNEY FAROOQ Report Released Date/Time: Aug 22, 2024 10:17 AM Reporting Lab: [facility] [place] [facility] [address] [facility] [address] Performing Lab: [facility]YN [facility] [address] [facility] [address] [place] VITAMIN B12 COBALAMIN (VITAMIN B12) [MASS/VOLUM E] IN SERUM OR PLASMA 378 pg/mL 200 - 900 08/22 Specimen Type: SERUM No comment entered. Ordering Provider: COURTNEY FAROOQ Report Released Date/Time: Aug 22, 2024 10:17 AM Reporting Lab: [facility] [place] [address] [address] Performing Lab: [facility] [address] [facility] [address] [place] CBC AND DIFF (AUTO) LEUKOCYTES [#/VOLUME] IN BLOOD BY AUTOMATED COUNT 7.35 10*3/u L 4.50 - 11.00 08/22 Specimen Type: BLOOD Comment: Smear reviewed, auto CBC w/Diff accepted. Ordering Provider: COURTNEY FAROOQ Report Released Date/Time: Aug 22, 2024 10:17 AM Reporting Lab: [address] [address] Performing Lab: [address] [address] [place] CBC AND DIFF (AUTO) ERYTHROCYTE S [#/VOLUME] IN BLOOD BY AUTOMATED COUNT 3.51 10*6/u L 4.23 - 5.66 08/22 L Specimen Type: BLOOD Comment: Smear reviewed, auto CBC w/Diff accepted. Ordering Provider: COURTNEY FAROOQ Report Released Date/Time: Aug 22, 2024 10:17 AM Reporting Lab: [address] [address] Performing Lab: [address] [address] [place] CBC AND DIFF (AUTO) HEMOGLOBIN [MASS/VOLUM E] IN BLOOD 11.1 g/dL 12.8 - 17 08/22 L Specimen Type: BLOOD Comment: Smear reviewed, auto CBC w/Diff accepted. Ordering Provider: COURTNEY FAROOQ Report Released Date/Time: Aug 22, 2024 10:17 AM Reporting Lab: [address] [address] Performing Lab: [address] [address] [place] CBC AND DIFF (AUTO) HEMATOCRIT [VOLUME FRACTION] OF BLOOD BY AUTOMATED COUNT 32.1 39.2 - 50.4 08/22 L Specimen Type: BLOOD Comment: Smear reviewed, auto CBC w/Diff accepted. Ordering Provider: COURTNEY FAROOQ Report Released Date/Time: Aug 22, 2024 10:17 AM Reporting Lab: [facility] [address] [facility] [address] Performing Lab: [facility] [address] [facility] [address] [place] CBC AND DIFF (AUTO) MCV [ENTITIC VOLUME] BY AUTOMATED COUNT 91.5 fL 82 - 99 08/22 Specimen Type: BLOOD Comment: Smear reviewed, auto CBC w/Diff accepted. Ordering Provider: COURTNEY FAROOQ Report Released Date/Time: Aug 22, 2024 10:17 AM Reporting Lab: [facility] [address] [facility] [address] Performing Lab: [address] [address] [place] CBC AND DIFF (AUTO) MCHC [MASS/VOLUM E] BY AUTOMATED COUNT 34.6 g/dL 30.8 - 35.1 08/22 Specimen Type: BLOOD Comment: Smear reviewed, auto CBC w/Diff accepted. Ordering Provider: COURTNEY FAROOQ Report Released Date/Time: Aug 22, 2024 10:17 AM Reporting Lab: [facility] [address] [facility] [address] Performing Lab: [facility] [address] [facility] [address] [place] CBC AND DIFF (AUTO) PLATELETS [#/VOLUME] IN BLOOD BY AUTOMATED COUNT 117 10*3/u L 140 - 360 08/22 L Specimen Type: BLOOD Comment: Smear reviewed, auto CBC w/Diff accepted. Ordering Provider: COURTNEY FAROOQ Report Released Date/Time: Aug 22, 2024 10:17 AM Reporting Lab: [facility] [address] [facility] [address] Performing Lab: [address] [address] [place] CBC AND DIFF (AUTO) ERYTHROCYTE DISTRIBUTIO N WIDTH [RATIO] BY AUTOMATED COUNT 13.0 12.0 - 16.0 08/22 Specimen Type: BLOOD Comment: Smear reviewed, auto CBC w/Diff accepted. Ordering Provider: COURTNEY FAROOQ Report Released Date/Time: Aug 22, 2024 10:17 AM Reporting Lab: [facility] [address] [address] Performing Lab: [facility] [place] [address] [address] [place] CBC AND DIFF (AUTO) MONOCYTES [#/VOLUME] IN BLOOD BY AUTOMATED COUNT 0.71 10*3/u L 0.30 - 1.10 08/22 Specimen Type: BLOOD Comment: Smear reviewed, auto CBC w/Diff accepted. Ordering Provider: COURTNEY FAROOQ Report Released Date/Time: Aug 22, 2024 10:17 AM Reporting Lab: [facility]RN [facility] [address] [address] Performing Lab: [facility]AMATRN [address] [address] [place] CBC AND DIFF (AUTO) MCH [ENTITIC MASS] BY AUTOMATED COUNT 31.6 pg 26.2 - 32.6 08/22 Specimen Type: BLOOD Comment: Smear reviewed, auto CBC w/Diff accepted. Ordering Provider: COURTNEY FAROOQ Report Released Date/Time: Aug 22, 2024 10:17 AM Reporting Lab: [facility]RN [facility] [address] [address] Performing Lab: [facility]RN [facility] [address] [address] [place] CBC AND DIFF (AUTO) NEUTROPHILS /100 LEUKOCYTES IN BLOOD BY AUTOMATED COUNT 63.2 43.7 - 75.8 08/22 Specimen Type: BLOOD Comment: Smear reviewed, auto CBC w/Diff accepted. Ordering Provider: COURTNEY FAROOQ Report Released Date/Time: Aug 22, 2024 10:17 AM Reporting Lab: [facility]RN [facility] [address] [address] Performing Lab: [facility] W[facility]N [facility] [address] [address] [place] CBC AND DIFF (AUTO) LYMPHOCYTES /100 LEUKOCYTES IN BLOOD BY AUTOMATED COUNT 16.9 14.0 - 42.3 08/22 Specimen Type: BLOOD Comment: Smear reviewed, auto CBC w/Diff accepted. Ordering Provider: COURTNEY FAROOQ Report Released Date/Time: Aug 22, 2024 10:17 AM Reporting Lab: [facility] AL[facility]AMATRN [address] [address] Performing Lab: [facility]RL TRN [facility]AREUSE[address] [address] [place] CBC AND DIFF (AUTO) MONOCYTES/1 00 LEUKOCYTES IN BLOOD BY AUTOMATED COUNT 9.7 5.1 - 13.7 08/22 Specimen Type: BLOOD Comment: Smear reviewed, auto CBC w/Diff accepted. Ordering Provider: COURTNEY FAROOQ Report Released Date/Time: Aug 22, 2024 10:17 AM Reporting Lab: [facility] AL[facility]AMATRN [address] [address] Performing Lab: [facility] [address] [address] [place] CBC AND DIFF (AUTO) EOSINOPHILS /100 LEUKOCYTES IN BLOOD BY AUTOMATED COUNT 2.9 0.4 - 6.8 08/22 Specimen Type: BLOOD Comment: Smear reviewed, auto CBC w/Diff accepted. Ordering Provider: COURTNEY FAROOQ Report Released Date/Time: Aug 22, 2024 10:17 AM Reporting Lab: [facility]RN [address] [address] Performing Lab: [facility]ATRN [address] [address] [place] CBC AND DIFF (AUTO) BASOPHILS/1 00 LEUKOCYTES IN BLOOD BY AUTOMATED COUNT 0.5 0.1 - 2.0 08/22 Specimen Type: BLOOD Comment: Smear reviewed, auto CBC w/Diff accepted. Ordering Provider: COURTNEY FAROOQ Report Released Date/Time: Aug 22, 2024 10:17 AM Reporting Lab: [facility]RN [facility] [address] Performing Lab: [facility]ATRN [facility] [address] [place] CBC AND DIFF (AUTO) NEUTROPHILS [#/VOLUME] IN BLOOD BY AUTOMATED COUNT 4.65 10*3/u L 2.20 - 7.60 10/29 /2024 Specimen Type: BLOOD Comment: Smear reviewed, auto CBC w/Diff accepted. Ordering Provider: COURTNEY FAROOQ Report Released Date/Time: Aug 22, 2024 10:17 AM Reporting Lab: [facility]ATRN [address] [address] Performing Lab: [facility] [address] [address] [place] CBC AND DIFF (AUTO) LYMPHOCYTES [#/VOLUME] IN BLOOD BY AUTOMATED COUNT 1.24 10*3/u L 1.00 - 3.20 08/22 Specimen Type: BLOOD Comment: Smear reviewed, auto CBC w/Diff accepted. Ordering Provider: COURTNEY FAROOQ Report Released Date/Time: Aug 22, 2024 10:17 AM Reporting Lab: [facility]YN [address] [address] Performing Lab: [facility] [address] [address] [place] CBC AND DIFF (AUTO) EOSINOPHILS [#/VOLUME] IN BLOOD BY AUTOMATED COUNT 0.21 10*3/u L 0.03 - 0.44 08/22 Specimen Type: BLOOD Comment: Smear reviewed, auto CBC w/Diff accepted. Ordering Provider: COURTNEY FAROOQ Report Released Date/Time: Aug 22, 2024 10:17 AM Reporting Lab: [facility] [address] [address] Performing Lab: [facility] [address] [address] [place] CBC AND DIFF (AUTO) BASOPHILS [#/VOLUME] IN BLOOD BY AUTOMATED COUNT 0.04 10*3/u L 0.01 - 0.13 08/22 Specimen Type: BLOOD Comment: Smear reviewed, auto CBC w/Diff accepted. Ordering Provider: COURTNEY FAROOQ Report Released Date/Time: Aug 22, 2024 10:17 AM Reporting Lab: [facility] [address] [address] Performing Lab: [facility] [address] [address] [place] CBC AND DIFF (AUTO) IMMATURE GRANULOCYTE S/100 LEUKOCYTES IN BLOOD BY AUTOMATED COUNT 6.8 0.0 - 0.7 08/22 H Specimen Type: BLOOD Comment: Smear reviewed, auto CBC w/Diff accepted. Ordering Provider: COURTNEY FAROOQ Report Released Date/Time: Aug 22, 2024 10:17 AM Reporting Lab: [address] [address] Performing Lab: [facility] [address] [address] [place] CBC AND DIFF (AUTO) IMMATURE GRANULOCYTE S [#/VOLUME] IN BLOOD 0.50 10*3/u L 0.00 - 0.06 08/22 H Specimen Type: BLOOD Comment: Smear reviewed, auto CBC w/Diff accepted. Ordering Provider: COURTNEY FAROOQ Report Released Date/Time: Aug 22, 2024 10:17 AM Reporting Lab: [address] [address] Performing Lab: [address] [address] [place] CBC AND DIFF (AUTO) NRBC % 0.4 0.0 - 0.0 08/22 H Specimen Type: BLOOD Comment: Smear reviewed, auto CBC w/Diff accepted. Ordering Provider: COURTNEY FAROOQ Report Released Date/Time: Aug 22, 2024 10:17 AM Reporting Lab: [address] [address] Performing Lab: [address] [address] [place] CBC AND DIFF (AUTO) NRBC, ABS 0.03 10*3/u L 0.00 - 0.00 08/22 H Specimen Type: BLOOD Comment: Smear reviewed, auto CBC w/Diff accepted. Ordering Provider: COURTNEY FAROOQ Report Released Date/Time: Aug 22, 2024 10:17 AM Reporting Lab: [address] [address] Performing Lab: [facility] [address] [facility] [address] [place] BASIC METABOLIC PANEL (non-fast ing) UREA NITROGEN [MASS/VOLUM E] IN SERUM OR PLASMA 12 mg/dL 7 - 25 08/22 Specimen Type: SERUM No comment entered. Ordering Provider: COURTNEY FAROOQ Report Released Date/Time: Aug 22, 2024 10:17 AM Reporting Lab: [facility] [address] [facility] [address] Performing Lab: [facility] [address] [facility] [address] [place] BASIC METABOLIC PANEL (non-fast ing) GLUCOSE [MASS/VOLUM E] IN SERUM OR PLASMA 104 mg/dL 65 - 100 08/22 H Specimen Type: SERUM No comment entered. Ordering Provider: COURTNEY FAROOQ Report Released Date/Time: Aug 22, 2024 10:17 AM Reporting Lab: [facility] [address] [facility] [address] Performing Lab: [facility] [address] [facility] [address] [place] BASIC METABOLIC PANEL (non-fast ing) SODIUM [MOLES/VOLU ME] IN SERUM OR PLASMA 136 mmol/L 135 - 145 08/22 Specimen Type: SERUM No comment entered. Ordering Provider: COURTNEY FAROOQ Report Released Date/Time: Aug 22, 2024 10:17 AM Reporting Lab: [facility] [address] [facility] [address] Performing Lab: [facility] [address] [facility] [address] [place] BASIC METABOLIC PANEL (non-fast ing) POTASSIUM [MOLES/VOLU ME] IN SERUM OR PLASMA 4.7 mmol/L 3.5 - 5.0 08/22 Specimen Type: SERUM No comment entered. Ordering Provider: COURTNEY FAROOQ Report Released Date/Time: Aug 22, 2024 10:17 AM Reporting Lab: [facility] [address] [facility] [address] Performing Lab: [facility] [address] [facility] [address] [employer] BASIC METABOLIC PANEL (non-fast ing) CHLORIDE [MOLES/VOLU ME] IN SERUM OR PLASMA 106 mmol/L 100 - 110 08/22 Specimen Type: SERUM No comment entered. Ordering Provider: COURTNEY FAROOQ Report Released Date/Time: Aug 22, 2024 10:17 AM Reporting Lab: [facility] [address] [facility] [address] Performing Lab: [facility] [address] [facility] [address] [employer] BASIC METABOLIC PANEL (non-fast ing) CARBON DIOXIDE, TOTAL [MOLES/VOLU ME] IN SERUM OR PLASMA 18 meq/L 20 - 30 08/22 L Specimen Type: SERUM No comment entered. Ordering Provider: COURTNEY FAROOQ Report Released Date/Time: Aug 22, 2024 10:17 AM Reporting Lab: [facility] [address] [facility] [address] Performing Lab: [address] [address] [employer] BASIC METABOLIC PANEL (non-fast ing) CREATININE [MASS/VOLUM E] IN SERUM OR PLASMA 1.15 mg/dL 0.50 - 1.40 08/22 Specimen Type: SERUM No comment entered. Ordering Provider: COURTNEY FAROOQ Report Released Date/Time: Aug 22, 2024 10:17 AM Reporting Lab: [address] [address] Performing Lab: [address] [address] [employer] BASIC METABOLIC PANEL (non-fast ing) GLOMERULAR FILTRATION RATE/1.73 SQ M.PREDICTED [VOLUME RATE/AREA] IN SERUM, PLASMA OR BLOOD BY CREATININE- BASED FORMULA (CKD-EPI 2020) 65 mL/min 60 08/22 Specimen Type: SERUM No comment entered. Ordering Provider: COURTNEY FAROOQ Report Released Date/Time: Aug 22, 2024 10:17 AM Reporting Lab: [address] [place] [address] Performing Lab: [facility] [place] [facility] [address] [facility] [address] [place] LIVER FUNCTION PROTEIN [MASS/VOLUM E] IN SERUM OR PLASMA 6.0 g/dL 6.0 - 8.3 08/22 Specimen Type: SERUM No comment entered. Ordering Provider: COURTNEY FAROOQ Report Released Date/Time: Aug 22, 2024 10:17 AM Reporting Lab: [facility] [place] [facility] [address] [facility] [address] Performing Lab: [facility] [place] [facility] [address] [facility] [address] [place] LIVER FUNCTION ALBUMIN [MASS/VOLUM E] IN SERUM OR PLASMA 3.1 g/dL 3.5 - 5.0 08/22 L Specimen Type: SERUM No comment entered. Ordering Provider: COURTNEY FAROOQ Report Released Date/Time: Aug 22, 2024 10:17 AM Reporting Lab: [facility] [place] [facility] [address] [facility] [address] Performing Lab: [facility] [place] [facility] [address] [facility] [address] [place] LIVER FUNCTION ALKALINE PHOSPHATASE [ENZYMATIC ACTIVITY/VO LUME] IN SERUM OR PLASMA 138 U/L 40 - 150 08/22 Specimen Type: SERUM No comment entered. Ordering Provider: COURTNEY FAROOQ Report Released Date/Time: Aug 22, 2024 10:17 AM Reporting Lab: [facility] [place] [facility] [address] [facility] [address] Performing Lab: [facility] [place] [facility] [address] [facility] [address] [place] LIVER FUNCTION ASPARTATE AMINOTRANSF ERASE [ENZYMATIC ACTIVITY/VO LUME] IN SERUM OR PLASMA 27 U/L 5 - 34 08/22 Specimen Type: SERUM No comment entered. Ordering Provider: COURTNEY FAROOQ Report Released Date/Time: Aug 22, 2024 10:17 AM Reporting Lab: [facility] [place] [address] [address] Performing Lab: [facility] [place] [facility] [address] [facility] [address] [place] LIVER FUNCTION ALANINE AMINOTRANSF ERASE [ENZYMATIC ACTIVITY/VO LUME] IN SERUM OR PLASMA 36 U/L 08/22 Specimen Type: SERUM No comment entered. Ordering Provider: COURTNEY FAROOQ Report Released Date/Time: Aug 22, 2024 10:17 AM Reporting Lab: [facility] [place] [facility] [address] [facility] [address] Performing Lab: [facility] [place] [facility] [address] [facility] [address] [place] LIVER FUNCTION BILIRUBIN.T OTAL [MASS/VOLUM E] IN SERUM OR PLASMA 1.0 mg/dL 0.2 - 1.2 08/22 Specimen Type: SERUM No comment entered. Ordering Provider: COURTNEY FAROOQ Report Released Date/Time: Aug 22, 2024 10:17 AM Reporting Lab: [facility] [place] [address] [address] Performing Lab: [facility] [place] [address] [address] [place] MICROALBU MIN CREATININ E RATIO PANEL MICROALBUMI N/CREATININ E [MASS RATIO] IN URINE 7.3 mg/g 0 - 29.9 08/16 Specimen Type: URINE No comment entered. Ordering Provider: COURTNEY FAROOQ Report Released Date/Time: Aug 08, 2024 01:49 PM Reporting Lab: [facility] [place] [address] [address] Performing Lab: [facility] [place] [address] [address] [facility] [place] [facility] MICROALBU MIN CREATININ E RATIO PANEL MICROALBUMI N [MASS/VOLUM E] IN URINE 0.8 mg/dL 08/16 Specimen Type: URINE No comment entered. Ordering Provider: COURTNEY FAROOQ Report Released Date/Time: Aug 08, 2024 01:49 PM Reporting Lab: [facility] [place] [address] [address] Performing Lab: [facility] [place] [facility] [address] [facility] [address] [facility] [place] [facility] MICROALBU MIN CREATININ E RATIO PANEL CREATININE [MASS/VOLUM E] IN URINE 109.38 mg/dL 08/16 Specimen Type: URINE No comment entered. Ordering Provider: COURTNEY FAROOQ Report Released Date/Time: Aug 08, 2024 01:49 PM Reporting Lab: [facility] [place] [facility] [address] [facility] [address] Performing Lab: [facility] [place] [facility] [address] [facility] [address] [facility] [place] [facility] MICROSCOP IC AUTOMATED , URINE LEUKOCYTES [#/AREA] IN URINE SEDIMENT BY MICROSCOPY HIGH POWER FIELD 0-5/[H PF] 0 - 5 08/16 Specimen Type: URINE Comment: If Glucose = >500 and Ketones are positive, please alert the Physician. Ordering Provider: COURTNEY FAROOQ Report Released Date/Time: Aug 08, 2024 01:49 PM Reporting Lab: [facility] [place] [facility] [address] [facility] [address] Performing Lab: [facility] [address] [facility] MICROSCOP IC AUTOMATED , URINE BACTERIA [#/AREA] IN URINE SEDIMENT BY MICROSCOPY HIGH POWER FIELD 1+/[HP F] 08/16 Specimen Type: URINE Comment: If Glucose = >500 and Ketones are positive, please alert the Physician. Ordering Provider: COURTNEY FAROOQ Report Released Date/Time: Aug 08, 2024 01:49 PM Reporting Lab: [facility] [place] [facility] [address] [facility] [address] Performing Lab: [facility] [address] [facility] [address] [facility] [place] [facility] MICROSCOP IC AUTOMATED , URINE MUCUS [#/AREA] IN URINE SEDIMENT BY MICROSCOPY LOW POWER FIELD FEW/[L PF] 08/16 Specimen Type: URINE Comment: If Glucose = >500 and Ketones are positive, please alert the Physician. Ordering Provider: COURTNEY FAROOQ Report Released Date/Time: Aug 08, 2024 01:49 PM Reporting Lab: [facility] [address] [facility] [address] Performing Lab: [facility] [address] [facility] [address] [facility] MICROSCOP IC AUTOMATED , URINE HYALINE CASTS [#/AREA] IN URINE SEDIMENT BY MICROSCOPY LOW POWER FIELD 2-4/[L PF] 0 - 2 08/16 Specimen Type: URINE Comment: If Glucose = >500 and Ketones are positive, please alert the Physician. Ordering Provider: COURTNEY FAROOQ Report Released Date/Time: Aug 08, 2024 01:49 PM Reporting Lab: [facility] [address] [facility] [address] Performing Lab: [facility] [address] [address] [employer] MICROSCOP IC AUTOMATED , URINE ERYTHROCYTE S [#/AREA] IN URINE SEDIMENT BY MICROSCOPY HIGH POWER FIELD 3-5/[H PF] 0 - 3 08/16 Specimen Type: URINE Comment: If Glucose = >500 and Ketones are positive, please alert the Physician. Ordering Provider: COURTNEY FAROOQ Report Released Date/Time: Aug 08, 2024 01:49 PM Reporting Lab: [address] [address] Performing Lab: [address] [address] [employer] Vital Signs Combined list of inpatient and outpatient Vital Signs from Department of Defense and Veterans Affairs, ranging from 12 months to all on record, depending upon the facility. Vital Sign Value Date Comments Source SYSTOLIC BLOOD PRESSURE 89 08/22/2024 09:46:52 [place] DIASTOLIC BLOOD PRESSURE 59 08/22/2024 09:46:52 [place] PULSE OXIMETRY 93 08/22/2024 09:46:52 [place] WEIGHT 08/22/2024 09:46:52 ESVIN ARMANDO PULSE 91 08/22/2024 09:46:52 [place] RESPIRATION 20 08/22/2024 09:46:52 [place] Encounters Combined list of: 1) Encounters from Department of Veterans Affairs facilities going backup to the last 18 months, not all VA inpatient encounters are included; 2) Encounters from the Department of Defense facilities going backup to 280 months. Location Location Details Encounter Type Encounter Number Reason For Visit Attending Provider ADM Date DC Date Status Disposition Source [facility] [id number] 12/26 [facility] [id number] 12/26 [facility] En[facility] [id number] 12/27 [facility] [id number] 12/28 [facility] [place] En[facility] [id number] 01/02 [facility] [place] En[facility] [id number] 01/02 [facility] [place] En[facility] [id number] 01/04 [facility] [place] En[facility] [id number] 01/09 [facility] [place] [id number] 01/16 [facility] [id number] 01/16 [facility] [place] [id number] 01/17 [facility] HC PRO PHONE CALL 11-20 MIN [id number] Diagnos is: ICD-10- CM Z74.1 Need for assista nce with BILL Chandler 01/18 [facility] En[facility] [id number] 01/23 [facility] [place] En[facility] [id number] 01/23 [facility] [place] En[facility] [id number] 01/30 [facility] [place] En[facility] [id number] 01/31 [facility] [place] [id number] 02/06 [facility] [place] En[facility] [id number] 02/06 [facility] [place] En[facility] [id number] 02/13 [facility] [place] En[facility] [id number] 02/13 [facility] [place] ([facility] Outpatient Encounter [id number] 49 02/13 [facility]GE[facility] En[facility] [id number] 02/15 [facility] [place] Encounter [id number] 02/15 [facility] Encounter [id number] 02/20 [facility] En[facility] [id number] 02/22 [facility] HEARING AID EXAM BOTH EARS [id number] Diagnos is: ICD-10- CM H90.3 Sensori neural hearing loss, bilater Alexus Jalloh 02/24 [facility] En[facility] [id number] 02/27 [facility] [place] [id number] 02/27 [facility] [place]counter [id number] 03/06 [facility] [place]counter [id number] 03/06 [facility] [place] En[facility] [id number] 03/14 [facility] En[facility] [id number] 03/20 [facility] [place] Encounter [id number] 03/20 [facility] [place] En[facility] [id number] 03/21 [facility]counter [id number] 03/27 [facility] Encounter [id number] 03/27 [facility] [place] Encounter [id number] 03/27 [facility] CONFORMITY EVALUATION [id number] Diagnos is: ICD-10- CM Z46.1 Encount er for fitting and adjustm ent of hearing aid Alexus SANDY 03/30 [facility] En[facility] [id number] 04/03 [facility] En[facility] [id number] 04/03 [facility] [place] Encounter [id number] 04/14 [facility] [place] Encounter [id number] 04/14 [facility] [place] Encounter [id number] 04/16 [facility] [place] Encounter [id number] 04/17 [facility] [place] En[facility] [id number] 04/21 [facility] [place] En[facility] [id number] 04/24 [facility] [place] En[facility] [id number] 04/24 [facility] [place] En[facility] [id number] 04/30 [facility] [place] Encounter [id number] 05/01 [facility] En[facility] [id number] 05/01 [facility] [place] En[facility] [id number] 05/08 [facility] [place] En[facility] [id number] 05/08 [facility] [place] HEARING AID EXAM BOTH EARS [id number] Diagnos is: ICD-10- CM Z46.1 Encount er for fitting and adjustm ent of hearing aid JOSE GRAY 05/12 [facility] En[facility] [id number] 05/15 [facility] En[facility] [id number]/15 [facility] En[facility] [id number] 05/22 [facility] En[facility] [id number] 05/29 [facility] Encounter [id number] 06/05 [facility] Encounter [id number] 06/05 [facility] En[facility] [id number] 06/12 [facility] En[facility] [id number] 06/13 [facility] [place] HEARING SERVICE [id number] Diagnos is: ICD-10- CM Z46.1 Encount er for fitting and adjustm ent of hearing aid Alexus SANDY 06/13 [facility] En[facility] [id number] 06/15 [facility] En[facility] [id number] 1.06/19 [facility] En[facility] [id number] 1.06/26 [facility] [place] En[facility] [id number] 1.06/27 [facility] [place] En[facility] [id number] 1.07/03 [facility] En[facility] [id number] 1.07/10 [facility] Encounter [id number] 1.07/17 [facility] [id number] 07/24 [facility] En[facility] [id number] 07/28 [facility] [id number] 1.07/31 [facility] [id number] [facility] [place] Encounter [id number] 07/31 [facility] En[facility] [id number] 08/01 [facility] En[facility] [id number] MAXIMILIANO KUMARI 08/01 [facility] En[facility] [id number] 08/01 [facility] [place] Outpatient [facility]counter [id number] 08/03 [place] [facility] Encounter [id number] 08/04 [facility] Encounter [id number] 08/07 [facility] En[facility] [id number] 08/08 [facility] En[facility] [id number] 08/08 [facility] [id number] 08/14 [facility] En[facility] [id number] 08/14 [facility] En[facility] [id number] 08/16 [facility] En[facility] [id number] 08/17 [facility] En[facility] [id number] 1.08/20 [facility] En[facility] [id number] 1.08/21 [facility] [place] OFFICE O/P EST LOW 20 MIN [id number] Diagnos is: ICD-10- CM A41.9 Sepsis, unspeci fied ANJU Pritchard 08/22 [facility] [place] [facility] En[facility] [id number] 08/24 [facility] En[facility] [id number] 08/27 [facility] Encounter [id number] ANASTASIYA FRAUSTO 08/28 [facility] Encounter [id number] 08/28 [facility] Encounter [id number] 08/28 [facility] En[facility] [id number] 09/03 [facility] Encounter [id number] 09/04 [facility] En[facility] [id number] 09/17 [facility] Encounter [id number] 09/18 [facility] Encounter [id number] 09/20 [facility] [place] OFFICE O/P EST MOD 30 MIN [id number] 1BY. Diagnos is: ICD-10- CM D64.9 Anemia, unspeci fied GISELA BANGURA 09/20 [place] [facility] En[facility] [id number]/24 [facility] En[facility] [id number] 09/25 [facility] Encounter [id number] 10/01 [facility] Encounter [id number] 10/02 [facility] Encounter [id number] 10/02 [facility] COMPRE OPH EXAM NEW PT 1/> [id number] Diagnos is: ICD-10- CM E11.9 Type 2 diabete s mellitu s without complic ations ELI MATAMOROS 10/03 [facility] FIT SPECTACLES MULTIFOCAL [id number] Diagnos is: ICD-10- CM Z46.0 Encount er for fit/adj st of spectac les and contact lenses ELI MATAMOROS H B 10/04 [facility] Encounter [id number] 1.10/15 [facility] En[facility] [id number] 1.10/16 [facility] [id number] 10/19 [facility] Encounter [id number] 10/20 [facility] Encounter [id number] 10/23 [facility] Encounter [id number] 10/24 [facility] Encounter [id number] 10/26 [facility] En[facility] [id number] 10/26 [facility] [id number] 10/26 [facility] Encounter [id number]/26 [facility] Encounter [id number] 10/28 [facility] En[facility] [id number]/30 [facility] Encounter [id number]/31 [facility] PH1 ASSMT&MGMT NQHP 11-20 [id number] Diagnos is: ICD-10- CM R54 Age-rel ated physica l debilit y GONZALES,DI ANE 10/31 [facility] Out[facility]counter [id number]/31 [facility]counter [id number] [facility]counter [id number] [facility]counter [id number] 11/02 [facility]counter [id number] 11/05 [facility]counter [id number] 11/06 [facility] Encounter [id number] 1.11/06 [facility]counter [id number] 11/07 [facility] [id number] [facility] En[facility] [id number] 1.11/09 [facility] Encounter [id number] 1.11/09 [facility]counter [id number] 11/12 [facility]counter [id number] [facility] Out[facility] Encounter [id number] [facility] OFFICE O/P EST HI 40 MIN [id number] Diagnos is: ICD-10- CM R54 Age-rel ated physica l debilit y NADAZDIN-B CANDACE,OG CATHIE M 11/15 [place] [facility] Out[facility] Encounter [id number] [facility] PH1 ASSMT&MGMT NQHP 11-20 [id number] Diagnos is: ICD-10- CM F03.90 Unsp dementi a, unsp severit y, without beh/psy ch/mood /anx ROXANA OVERTON 11/22 [facility] Out[facility] Encounter [id number] 11/23 [facility] Encounter [id number] 11/27 [facility]counter [id number] 12/01 [facility] Out[facility]counter [id number] 12/03 [facility] Out[facility]counter [id number] 12/04 [facility]counter [id number] 12/10 [facility]counter [id number] 12/11 [facility] Out[facility] Encounter [id number] 12/12 [facility] SPECIAL SUPPLIES PHYS/QHP [id number] Diagnos is: ICD-10- CM J44.9 Chronic obstruc tive pulmona ry disease , unspeci fied JARMOLOWIC Z,MINH 12/15 [facility] RN CARE EA 15 MIN HH/HOSPICE [id number] Diagnos is: ICD-10- CM R54 Age-rel ated physica l debilit y MATTEJESSICA PALACIOS 12/20 [facility] C[facility] EA 15 MIN HH/HOSPICE [id number] Diagnos is: ICD-10- CM F03.90 Unsp dementi a, unsp severit y, without beh/psy ch/mood /anx ROXANA [place] 12/20 [facility] Encounter [id number] 12/24 [facility] Out[facility] Encounter [id number] 12/25 [facility] OT EVAL LOW COMPLEX 30 MIN [id number] Diagnos is: ICD-10- CM F03.90 Unsp dementi a, unsp severit y, without beh/psy ch/mood /anx PETE GONZALES 12/29 [facility] Out[facility] Encounter [id number] 12/31 [facility] Out[facility] Encounter [id number] 01/01 [facility] Out[facility] Encounter [id number] 01/03 [facility] Encounter [id number] 01/03 [facility] Encounter [id number] 01/08 [facility] Out[facility] Encounter [id number] [facility] OT EVAL LOW COMPLEX 30 MIN [id number] Diagnos is: ICD-10- CM F03.90 Unsp dementi a, unsp severit y, without beh/psy ch/mood /anx GONZALES,DI ANE 01/09 [facility] Encounter [id number] 01/10 [facility] Out[facility] Encounter [id number] [facility] Encounter [id number] 01/15 [facility] Out[facility] Encounter [id number] 01/22 [facility] Out[facility] Encounter [id number] 01/29 [facility] Out[facility] Encounter [id number] 01/29 [facility] Out[facility] Encounter [id number] [facility] Out[facility] Encounter [id number] [facility] Out[facility] Encounter [id number] [facility] Encounter [id number] 02/12 [facility] Out[facility] Encounter [id number] [facility] Out[facility] Encounter [id number] [facility] Out[facility] Encounter [id number] [facility] Out[facility] Encounter [id number] 03/05 [facility] Out[facility] Encounter [id number] 03/06 [facility] Out[facility] Encounter [id number] [facility] Out[facility] Encounter [id number] [facility] Out[facility] Encounter [id number] 03/22 [facility] Out[facility] Encounter [id number] 03/26 [facility] Out[facility] Encounter [id number] 03/28 [facility] WHEELCHAIR MNGMENT TRAINING [id number] Diagnos is: ICD-10- CM F02.C18 Dem in other dis classd elswhr, sev, with other beh distrb JAY,E VELYN ISABEL 03/30 [facility] Out[facility] Encounter [id number] 04/02 [facility] Out[facility] Encounter [id number] 04/16 [facility] Out[facility] Encounter [id number] 04/16 [facility] Out[facility] Encounter [id number] 04/30 [facility] Out[facility] Encounter [id number] 05/07 [facility] Out[facility]counter [id number] 05/07 [facility] Outpatient Encounter [id number] 05/14 [facility] Outpatient Encounter [id number] 05/14 [facility] Outpatient Encounter [id number] 05/21 [facility] Outpatient Encounter [id number] 05/21 [facility] Outpatient Encounter [id number] 05/29 [facility] Social History Combined list of available smoking, tobacco, and other social history from Department of Defense and [facility] facilities. Social History Type Response Date Comment Sourc e Tobacco smoking status [facility]-TOBACCO NEVER USED 08/22/2024 L[place] History of tobacco use CA-TOBACCO QUIT 15 YRS OR MORE 08/22/2024 [place] History of tobacco use CA-TOBACCO FORMER USER 06/03/2023 [facility] Plan of Care List of future care activities from Department of [facility] Affairs facilities. Additional future care activities may be listed in the Assessment and Plan section. Date/Time Care Activity Care Activity Detail Facili ty 06/28/2025 AMBULATORY - REHAB MEDICINE AMBULATORY - REHAB MEDICINE [facility] Advance Directives List of completed, amended, or rescinded Advance Directives on record at Department of [facility] facilities. An actual copy of the Directive is not included. Date Advance Directive Provider Source 07/15/2023 ADVANCE DIRECTIVE ROGER PEDRAZA 06/30/2019 ADVANCE DIRECTIVE CASSIE POWELL [facility]
--- NOTE | 2025-06-20 12:59 | MHC.OFFVIS ---
Intake Visit Reasons: 4 month Allergies egg Allergy (Verified 10/17/24 15:06) Unknown minocycline Allergy (Verified 10/17/24 15:06) Unknown Sulfa (Sulfonamide Antibiotics) Allergy (Verified 10/17/24 15:06) Unknown HPI Comments Details: More forgetful, and at times not understanding. More visual hallucinations. Generally worse in all functioning. Gets sun-downing with agitation and confusion. Uses a w/c in the house and occasionally using a walker with 1 assist. Lot of sleep behavior problems. In January 2025 , he had an episode of slurring , confusion and right facial droop. It lasted < 2 minutes. He had another minor spell again with some twitching. Gets arma nd leg twitches. There was transient elevation of BP.? Memory is worsening. More confusion since the fall on 10/17/24 and was in hospital X 2 . Seeing animals , children etc. He is doing well on melatonin. Not?getting?angry and restless,?He is living at home and lives with his and a caregiver who is with him all day. About 5/7 days he gets visual hallucinations when he sees animals in the house, bad kids who bother him. Calling his by his mother's name and also has some animated sleep with abnormal behaviors has gone on for many years. He also sleeps excessively. He takes naps during the day. Generally eats well. No tremors are noted. [facility] Medical History (Updated 06/20/25 @ 13:23 by Luisa Garcia MD) TIA (transient ischemic attack) Hallucination RBD (REM behavioral disorder) MCI (mild cognitive impairment) Social History Household Members: Spouse Housing: House Do you presently have visiting nurse or other home services: Yes ([employer]) Alcohol intake: never Patient Tobacco Use Status: Former Tobacco user Advance Directives Date on File: 05/26/23 Review of Systems Const Details: Sleep:? Difficulty getting to sleepdenies.? Difficulty maintaining sleepadmits.? Urge to move legsadmits.? Teeth grindingdenies.? Shouting or Kicking during sleepadmits.? Abnormal behavior during sleepadmits.? Excessive sleepadmits.? Snoringdenies.? Daytime sleepinessdenies. ???General/Constitutional:? Change in appetitedenies.? Chillsdenies.? Fatigueadmits.? Feverdenies.? Weight gaindenies.? Weight lossdenies. ???Ophthalmologic:? Blurred visiondenies.? Diminished visual acuitydenies. ???ENT:? Stuffinessdenies.? Decreased hearingadmits.? Dry mouthdenies.? Ear paindenies.? Nosebleeddenies.? Ringing in the earsdenies.? Sinus paindenies.? Sore throatdenies.? Swollen glandsdenies. ???Endocrine:? Cold intolerancedenies.? Excessive thirstdenies.? Frequent urinationdenies.? Heat intoleranceadmits. ???Respiratory:? Shortness of breathadmits.? Chest paindenies.? Coughadmits. ???Breast:? Breast lumpdenies.? Nipple dischargedenies. ???Cardiovascular:? Chest pain at restdenies.? Chest pain with exertiondenies.? Claudicationdenies.? Dizzinessdenies.? Fluid accumulation in the legsdenies.? Irregular heartbeatdenies.? Palpitationsdenies. ???Gastrointestinal:? Abdominal paindenies.? Constipationdenies.? Diarrheadenies.? Difficulty swallowingdenies.? Heartburndenies.? Nauseadenies.? Rectal bleedingdenies. ???Hematology:? Easy bruisingdenies.? Prolonged bleedingdenies. ???Genitourinary:? Frequent urinationadmits.? Urgencydenies.? Incontinencedenies.? Erectile Dysfunctiondenies. ???Musculoskeletal:? Neck paindenies.? Back paindenies.? Muscle achesadmits.? Painful jointsadmits.? Sciaticadenies.? Weaknessdenies. ???Podiatric:? Difficulty walkingdenies.? Foot numbnessdenies. ???Neurologic:? Difficulty swallowingadmits.? Balance difficultyadmits.? Coordinationnormal.? Difficulty speakingdenies.? Dizzinessadmits.? Faintingdenies.? Gait abnormalitydenies.? Headachedenies.? Loss of strengthdenies.? Loss of use of extremitydenies.? Low back paindenies.? Memory lossadmits.? Seizuresdenies.? Ticsdenies.? Tingling/Numbnessadmits.? Transient loss of visiondenies.? Tremordenies. ???Psychiatric:? Anxietydenies.? Auditory/visual hallucinationsadmits.? Delusionsadmits.? Depressed mooddenies.? Stressorsdenies.? Substance abusedenies.? Suicidal thoughtsdenies. Physical Exam Neuro Other: Neurological: Abnormal neurological findings:??He is? in a wheelchair.?Mental Status:??alert and oriented X 2,?.?Cranial Nerves:??Pupils are equal, round and reactive to light. Fundoscopy shows normal disc bilaterally. External occular muscles are intact. Visual jacobo are full, no ptosis. Face is symmetrical, no facial weakness or droop. Facial sensations are normal. Tongue protrudes in midline. Palate elevates symmetrically. Shoulder shrugging is normal..?Motor Examination:??Normal muscle tone, bulk and strength,?No atrophy or fasciculations,?No drift of the extended upper extremities,?Deep tendon reflexes are 2+?,?Plantars are flexor?.?Motor Strength:?Proximal Muscles (out of 5):5Distal Muscles (out of 5):5Neck Flexors (out of 5):5Neck Extensors (out of 5):5Deltoid (out of 5):5Biceps (out of 5):5Triceps (out of 5):5Serratus Anterior (out of 5):5Wrist Extensors (out of 5):5APB (out of 5):5Finger Spread (out of 5):5Ileopsoas (out of 5):5Quadriceps (out of 5):5Hamstrings (out of 5):5Tibialis Anterior (out of 5):5Peronei (out of 5):5EDB (out of 5):5Gastrocnemius (out of 5):5Straight Leg Raising:??90 degrees.?Sensory Exam:??Normal light touch, temperature, pinprick, vibration and joint-position sensations?,?Rhomberg sign is absent.?Coordination:??no ataxia,?no titubation,?ouijqd-vn-pepu, vxom-dgge-kser test and rapid alternating movements were normal.?Gait Exam:??Wheelchair.?Cerebellar Signs:??Htxidz-zt-jouk and ubge-an-sjio is normal,?no dysdiadochokinesia?.?Extrapyramidal System:??Minimal left thumb tremor . No rigidity with normal facial expressions,?No bradykinesia, no bradyphrenia. Normal arm swing and posture. No propulsion or retropulsion.?Speech:??Normal,?no dysphasia or dysarthria..? Mini Mental Status Exam: Level of Consciousness:??Alert.?Orientation:??Knows correct year, month, and season,?Knows correct city, and state. Knows correct location and floor.?Registration:??Able to register 3 objects.?Attention:??Serial 7's performed accurately.?Recall:??Able to recall 3 out of 3 objects.?Language:??Normal spontaneous speech, fluency, repetition,naming, comprehension, reading and writing.?Total Score:??26/30.? General Examination: GENERAL APPEARANCE:??normal,?in no acute distress.?HEAD:??normocephalic,?atraumatic.?EYES:??sclera non-icteric,?conjunctiva clear.?EARS:??auditory canal clear,?tympanic membrane intact, clear.?NOSE:??no lesions.?ORAL CAVITY:??gums normal,?mucosa moist,?no lesions.?THROAT:??clear.?NECK/THYROID:??no cervical lymphadenopathy,?thyroid normal,?neck supple, full range of motion,?no carotid bruit.?SKIN:??no rashes,?no significant birthmarks.?HEART:??S1, S2 normal,?no murmurs.?LUNGS:??clear anteriorly and posteriorly.?CHEST:??no gross rib deformity,?clear to auscultation.?BACK:??normal exam of spine.?EXTREMITIES:??no edema.?PERIPHERAL PULSES:??normal.?PSYCH:??alert, oriented,?cognitive function intact,?cooperative with exam.? Results Reviewed Results Reviewed: 02/26/2025 carotid ultrasound: Plaque at carotid bifurcation bilaterally without hemodynamically significant stenosis. Assessment & Plan Assessment & Plan (1) MCI (mild cognitive impairment): Code(s): G31.84 - Mild cognitive impairment of uncertain or unknown etiology Category: Medical (2) TIA (transient ischemic attack): Code(s): G45.9 - Transient cerebral ischemic attack, unspecified Category: Medical (3) Hallucination: Code(s): R44.3 - Hallucinations, unspecified Category: Medical (4) Lewy body dementia: Code(s): G31.83 - Neurocognitive disorder with Lewy bodies; F02.80 - Dementia in other diseases classified elsewhere, unspecified severity, without behavioral disturbance, psychotic disturbance, mood disturbance, and anxiety Category: Medical Plan Symptomatic treatment for agitation and hallucinations. May need treatment if hallucinations start to agitate him. Coding Level of Care Code Est Pt Level 5 (82311) Diagnoses MCI (mild cognitive impairment) G31.84 TIA (transient ischemic attack) G45.9 Hallucination R44.3 Lewy body dementia G31.83; F02.80
--- OUTSIDE RECORDS SUMMARY | 2025-06-20 13:08 | XMS_ITS | Encounter Summary ---
Author Organization [facility] Address [address] [place] [address] [place] [phone] Phone Care Team Providers Care Hot Mill Operator Name Role Phone Sal Everett MD Primary Care Provider [phone] Jair Poe MD Unavailable [phone] Prakash Bower MD Primary Care Provider [phone] Kamari Carter MD Unavailable [phone] Ondina Ferreira MD Primary Care Provider [phone] Encounter Details Date Type Department Care Team (Latest Contact Info) Description 03/08/2019 Transcribe Orders [address] [place] [address] Slava Ruiz MD [address] [facility], [address] [place] [address] [email or web address] Bronchiectasis without complication (Primary Dx) Social History Tobacco Use Types Packs/Day Years Used Date Smoking Tobacco: Former Cigarettes 1.5 15 1 11/29/1970 - 09/28/1986 Smokeless Tobacco: Never Alcohol Use Standard Drinks/Week Comments Yes 0 (1 standard drink = 0.6 oz pure alcohol) rare 2-3 high balls every few months Sex and Gender Information Value Date Recorded Sex Assigned at Male 01/05/2022 10:10 AM EDT Legal Sex Male 3:29 PM EDT Gender Identity Male 01/05/2022 10:10 AM EDT Sexual Orientation Not on file documented as of this encounter Plan of Treatment Upcoming Encounters Date Type Department Care Team (Late st Contact Info) Description 08/22/2025 11:15 AM EDT Office Visit [facility] [address] [facility] [address] Floor, [address] [place] [address] Slava Ruiz MD [address] [facility], [address] [place] [address] [email or web address] documented as of this encounter Results * Fungal culture (03/08/2019 8:30 AM EDT) Special Requests None 03/08/2019 12:37 PM EDT [facility] GRAM STAIN No Yeast or Fungal elements seen 03/10/2019 8:18 AM EDT [facility] Fungal Culture Only NO FUNGUS OR YEAST ISOLATED AFTER 26 DAYS 04/04/2019 8:00 AM EDT [facility] Other (Sputum) 03/08/2019 8: 30 AM EDT 03/08/2019 12:40 PM EDT Comment:SPUTUM us Slava Ruiz MD MICROBIOLOGY - GENERAL ORDERAB LES Final Result [facility] [address] [place] [address] * (ABNORMAL) Respiratory culture/smear (03/08/2019 8:30 AM EDT) Specimen Source/ Description SPUTUM SPUTUM SPUTUM [facility] Special Requests None [facility] GRAM STAIN Rare WBC'S , Moderate GRAM POSITIVE COCCI , Gram stain evaluation indicated >10 squamous epithelial cells per lower power field. Specimen is contaminated with saliva. Please submit a new specimen if clinically indicated. [facility] Culture/Test MIXED ORGANISMS RESEMBLING OROPHARYNGEAL JOVITA(A) [facility] Report Status 03/10/2019 FINAL [facility] Other (Sputum) 03/08/2019 8: 30 AM EDT 03/08/2019 12:40 PM EDT us Slava Ruiz MD MICROBIOLOGY - GENERAL ORDERAB LES Final Result Performing Organization Address City/[facility]/ZIP Co de Phone Number [address] [address] * Mycobacterial culture/smear (03/08/2019 8:30 AM EDT) Special Requests None 03/08/20 19 12:37 PM EDT [facility] SMEAR NO ACID FAST BACILLI OBSERVED 03/11/2019 2:16 PM EDT [facility] Mycobacterial Culture NO AFB ISOLATED AFTER 8 WEEKS 05/04/2019 1:58 PM EDT [facility] Other (Sputum) 03/08/2019 8: 30 AM EDT 03/08/2019 12:40 PM EDT Comment:SPUTUM us Slava Ruiz MD MICROBIOLOGY - GENERAL ORDERAB LES Final Result Performing Organization Address [facility] Co de Phone Number [address] [address] documented in this encounter Visit Diagnoses Diagnosis Bronchiectasis without complication- Primary documented in this encounter Additional Health Concerns Assessment Noted Time PHQ-2 Depression Total Score: 0 01/05/20 19 8:46 AM EDT documented as of this encounter Care Teams Hot Mill Operator Relationship Specialty Start Date End Date Sal Everett MD [email or web address] PCP - General Internal Medicine 08/02/1811/25 Prakash Bower MD [address] [place] [id number] [email or web address] PCP - General Internal Medicine 11/26/20 08/31/23 Ondina Ferreira MD [address] [place] [address] PCP - General 10/06/23 Jair Poe MD [address] [place] [address] Drive [address] [place] [address] Dimpling Machine Operator Cardiology 09/28/18 Kamari Carter MD [address] [place] [phone] Ophthalmology 01/13/22 documented as of this encounter Additional Source Comments The information contained in this document represents components of the legal health record. It is not the complete legal health record.[facility]
--- OUTSIDE RECORDS SUMMARY | 2025-06-20 13:08 | XMS_ITS | Encounter Summary ---
Author Organization [facility] Address [address] [place] [address] Phone Care Team Providers Care Director Surgical Name Role Phone Sal Everett MD Primary Care Provider [phone] Jair Poe MD Unavailable [phone] Prakash Bower MD Primary Care Provider [phone] Kamari Carter MD Unavailable [phone] Ondina Ferreira MD Primary Care Provider [phone] Reason for Referral * MRI/CAT Scan - Closed Specialty Diagnoses / Procedures Referred By Mary Jo mercedes Referred To Contact Radiology Diagnoses Bronchiectasis without complication Procedures CT Chest Slava Ruiz MD Phone: tel: fax: [email or web address] Referral ID Status Reason Start Date Expiration Date Visits Re quested Visits Authorized [id number] Closed 03/07/2019 03/06/2020 1 1 Encounter Details Date Type Department Care Team (Latest Contact Info) Description 03/07/2019 Transcribe Orders Virtual Department [address] [place] [address] Slava Ruiz MD [address] [facility], [address] [place] [address] [email or web address] Bronchiectasis without complication (Primary Dx) Social [...] Description 08/22/2025 11:15 AM EDT Office Visit [facility] [address] [place] [address] [address] Floor, [address] [place] [address] Slava Ruiz MD [address] [facility], [address] [place] [address] documented as of this encounter Results * CT CHEST WITHOUT CONTRAST (04/03/2019 9:34 AM EDT) Anatomical Region Laterality Modality Chest Computed Tomogra phy 04/03/2019 10:0 5 AM EDT Impressions 04/03/2019 12:12 PM EDT 1. Moderate diffuse centrilobular and paraseptal emphysema. Diffuse cylindrical bronchiectasis, which is most advanced in the lower lobes. Areas of bronchial wall thickening and a few tiny areas of mucus plugging. 2. Consider following up with low dose screening CT in one year. 3. Mild aneurysmal dilatation of the ascending thoracic aorta measuring 3.8 cm, thoracic aortic atherosclerotic calcification and coronary artery calcifications. 4. A few borderline enlarged mediastinal lymph nodes. 5. Upper abdomen: Enlarged spleen measuring up to 14.4 cm and nodularity of the imaged portion of the liver, suggesting chronic liver disease. TOTAL CTDIvol: 9.70 mGy POS - [id number] Edited by: Miracle Ordoñez on 04/03/2019 10:40 AM Narrative 04/03/2019 12:12 PM EDT HISTORY: * BRONCHIECTASIS Bronchiectasis without complication COMPARISON: 02/01/2019 chest x-ray. No chest CT for comparison. PROCEDURE: CT imaging of the chest without IV contrast. Helical axial images obtained with coronal and sagittal images reconstructed. Radiation dose control: Exam performed with automated exposure control or iterative reconstruction to minimize radiation exposure. FINDINGS: Lungs: There is moderate diffuse paraseptal and centrilobular emphysema. There is diffuse cylindrical bronchiectasis, most advanced in the bilateral lower lobes. There are scattered areas of bronchial wall thickening and a few areas of mucus plugging. A few small linear bands of atelectasis in the paramediastinal lingula, right middle lobe and in the lower lobes. In the peripheral lung bases, mixed groundglass attenuation and subpleural reticulation. There is breathing motion artifact adjacent to the diaphragms at the lung bases. No evidence for interstitial fibrosis. There is a 3 mm calcified granuloma left lung base. There is focal nodular thickening along the inferior right minor fissure. No suspicious dominant pulmonary mass or nodule. Pleura: No significant abnormalities. No pleural effusions. Cardiovascular: There is mild aneurysmal dilatation of the ascending thoracic aorta which measures a maximum diameter of 3.8 cm. There is diffuse thoracic aortic atherosclerotic calcification. Extensive left main, LAD, left circumflex and right coronary artery calcifications. Mildly enlarged left atrium and left ventricle. There is no pericardial effusion. Mediastinum/benny: There is an 11 mm precarinal node, 11 mm right hilar node, 9 mm and 10 mm aortopulmonary nodes and a few additional mediastinal lymph nodes measuring up to 8 mm. Lower neck/chest wall: No axillary or supraclavicular adenopathy. Bones: No suspicious lytic or blastic bone lesions or acute fractures. Multilevel degenerative spondylosis in the imaged spine. Straightening of the normal thoracic curvature and mild right convex scoliotic curvature. Upper abdomen: The spleen is noted to be enlarged, 14.4 cm in maximal length, the inferior aspect of the spleen which was not included. Undulating nodular contour of the liver imaged. There is no upper abdominal ascites. A few mildly prominent upper abdominal nodes identified in the peripancreatic/oneyda hepatis region measuring up to 9 mm. Procedure Note Delmy Vanegas MD - 04/03/2019 HISTORY: * BRONCHIECTASIS Bronchiectasis without complication COMPARISON: 02/01/2019 chest x-ray. No chest CT for comparison. PROCEDURE: CT imaging of the chest without IV contrast. Helical axialimages obtained with coronal and sagittal images reconstructed. Radiation dose control: Exam performed with automated exposure control oriterative reconstruction to minimize radiation exposure. FINDINGS: Lungs: There is moderate diffuse paraseptal and centrilobular emphysema.There is diffuse cylindrical bronchiectasis, most advanced in thebilateral lower lobes. There are scattered areas of bronchial wallthickening and a few areas of mucus plugging. A few small linear bands ofatelectasis in the paramediastinal lingula, right middle lobe and in thelower lobes. In the peripheral lung bases, mixed groundglass attenuationand subpleural reticulation. There is breathing motion artifact adjacentto the diaphragms at the lung bases. No evidence for interstitialfibrosis. There is a 3 mm calcified granuloma left lung base. There isfocal nodular thickening along the inferior right minor fissure. Nosuspicious dominant pulmonary mass or nodule. Pleura: No significant abnormalities. No pleural effusions. Cardiovascular: There is mild aneurysmal dilatation of the ascendingthoracic aorta which measures a maximum diameter of 3.8 cm. There isdiffuse thoracic aortic atherosclerotic calcification. Extensive leftmain, LAD, left circumflex and right coronary artery calcifications.Mildly enlarged left atrium and left ventricle. There is no pericardialeffusion. Mediastinum/benny: There is an 11 mm precarinal node, 11 mm right hilarnode, 9 mm and 10 mm aortopulmonary nodes and a few additional mediastinallymph nodes measuring up to 8 mm. Lower neck/chest wall: No axillary or supraclavicular adenopathy. Bones: No suspicious lytic or blastic bone lesions or acute fractures.Multilevel degenerative spondylosis in the imaged spine. Straightening ofthe normal thoracic curvature and mild right convex scoliotic curvature. Upper abdomen: The spleen is noted to be enlarged, 14.4 cm in maximallength, the inferior aspect of the spleen which was not included.Undulating nodular contour of the liver imaged. There is no upperabdominal ascites. A few mildly prominent upper abdominal nodes identifiedin the peripancreatic/oneyda hepatis region measuring up to 9 mm. IMPRESSION: 1. Moderate diffuse centrilobular and paraseptal emphysema. Diffusecylindrical bronchiectasis, which is most advanced in the lower lobes.Areas of bronchial wall thickening and a few tiny areas of mucusplugging. 2. Consider following up with low dose screening CT in one year. 3. Mild aneurysmal dilatation of the ascending thoracic aorta measuring3.8 cm, thoracic aortic atherosclerotic calcification and coronary arterycalcifications. 4. A few borderline enlarged mediastinal lymph nodes. 5. Upper abdomen: Enlarged spleen measuring up to 14.4 cm and nodularityof the imaged portion of the liver, suggesting chronic liver disease. TOTAL CTDIvol: 9.70 mGy POS - [id number] Edited by: Miracle Ordoñez on 04/03/2019 10:40 AM Slava Ruiz MD IMG CT CHEST Final Result documented in this encounter Visit Diagnoses Diagnosis Bronchiectasis without complication- Primary Bronchiectasis without complication documented in this encounter Additional Health Concerns Assessment Noted Time PHQ-2 Depression Total Score: 0 01/05/20 19 8:46 AM EDT documented as of this encounter Care Teams Director Surgical Relationship Specialty Start Date End Date Sal Everett MD [email or web address] PCP - General Internal Medicine 08/02/1811/25 Prakash Bower MD [address] [place] [address] [email or web address] PCP - General Internal Medicine 11/26/20 08/31/23 Ondina Ferreira MD [address] [place] [id number] PCP - General 10/06/23 Jair Poe MD [address] [place] [address] [address] [place] [address] Archeologist Cardiology 09/28/18 Kamari Carter MD [address] [place] [id number] Ophthalmology 01/13/22 documented as of this encounter Additional Source Comments The information contained in this document represents components of the legal health record. It is not the complete legal health record.[facility]
--- OUTSIDE RECORDS SUMMARY | 2025-06-20 13:08 | XMS_ITS | Patient Health Record ---
Author Organization [facility] Address [address] [facility] [place] [address] Care Team Providers Care Paper Cleaner Name Role Phone Ondina Ferreira Primary Care Provider Jerome Morfin Unavailable [phone] Allergies Allergen (clinical drug ingredient) Drug/Non Drug Allergy documented on EMR Reaction Allergy Type Onset Date Status sulfamethoxazole / trimethoprim Bactrim Unknown Drug Allergy Active Results Component Value Reference Range Notes HEMOGLOBIN A1C (GLYCOHEMOGLO BIN) Reviewed date:05/15/2025 08:20:10 AM Interpretation: Performing Lab: Notes/Report: HEMOGLOBIN A1C % (HH) 6.5 Reason For Referral No Information Medications Medication SIG (Take, Route, Frequency, Duration) Notes Start Date End Date Status Atorvastatin Calcium 25 1 tablet Orally Once a day Active Aspirin 325 MG Orally Activ e Lovastatin 40 MG Orally Not -Taking ZyrTEC Active metFORMIN HCl 1000 MG Orally Twice a day Active Anoro Ellipta Active Lisinopril Not-Takin g Clopidogrel Bisulfate Not-Taking Nitroglycerin Not-Ta mira Extra Depth Orthopedic Shoes (1 Pair) with Customized Heat Molded Multidensity Innersoles (3 Pair) as directed Dx: NIDDM/Polyneuropathy (E11.42), Hammertoe Foot Deformity (M20.41,M20.42), Preulcerative Skin Lesion(s) (L85.1 Active Azithromycin 500 MG TAKE 1 TABLET BY MOUTH 3 TIMES A WEEK ON WEDNESDAY,WEDNESDAY AND WEDNESDAY Oral; Duration: 84 Days 3 times a day Active Omeprazole Not-Takin g Metoprolol Tartrate 50 MG Orally Not-Taking Immunizations Vaccine Route Administration Date Status Comme nts Influenza Unknown 07/23/2017 Refused Influenza Unknown 10/29/2017 Refused Influenza Unknown 07/29/2018 Refused Influenza Unknown 05/15/2025 Refused Social History Tobacco Use: Social History Observation Description Date Details (start date - stop date) Never Smoker NA - NA Tobacco use other than smoking: Question Answer Notes Are you an other tobacco user? No Tobacco Control (Standard) Question Answer Notes Tobacco use: Nonsmoker Additional Findings: Tobacco non-user Current no nsmoker AUDIT-C (Standard) Question Answer Notes Did you have a drink containing alcohol in the p ast year? No Points 0 Interpretation Negative Problems Problem Type SNOMED Code ICD Code Onset Dates Problem Status W/U Status Risk Notes Problem Acquired hammer toe of right foot (0962818922012168 ) Other hammer toe(s) (acquired), right foot (M20.41) Active confirmed Problem Acquired hammer toe of left foot (9878316982406202 ) Other hammer toe(s) (acquired), left foot (M20.42) Active confirmed Problem Polyneuropathy due to type 2 diabetes mellitus (627691043) Type 2 diabetes mellitus with diabetic polyneuropathy (E11.42) Active confirmed Vital Signs Blood pressure diastolic 65 mm Hg 05/15/2025 Height 5 ft 7 in in 05/15/2025 Blood pressure systolic 128 mm Hg 05/15/2025 Weight 165 lbs 05/15/2025 BMI 25.84 kg/m2 05/15/2025 Procedures Procedure Date Ordered Date Performed Result Body Sit e 58629-ZTYKPQX NAIL, 6 OR MORE 06/20/2024 N/A 16559-JVAB SKIN LESIONS, OVER 4 06/20/2024 N/A 61080-KRKVJFQ NAIL, 6 OR MORE 01/16/2025 N/A 27299-UEEV SKIN LESIONS, OVER 4 01/16/2025 N/A 33496-DBULBHS NAIL, 6 OR MORE 05/15/2025 N/A 44441-XAOL SKIN LESIONS, OVER 4 05/15/2025 N/A Encounters Encounter Location Date Provider Diagnosis [facility] [address] 06/20/2024 Jerome Nava Type 2 diabetes mellitus with diabetic polyneuropathy E11.42 and Tinea unguium B35.[address] [facility] [address] [address] 01/16/2025 Jerome Nava Type 2 diabetes mellitus with diabetic polyneuropathy E11.42 ; Tinea unguium B35.1 ; Other hammer toe(s) (acquired), right foot M20.41 and Other hammer toe(s) (acquired), left foot M20.[address] [address] 05/15/2025 Jerome Nava Type 2 diabetes mellitus with diabetic polyneuropathy E11.42 and Tinea unguium B35.[address] [address] 10/10/2024 Jerome Nava Assessments Encounter Date Diagnosis (ICD Code) Assessment Notes Treatment Notes Treatment Clinical Notes Section Notes 06/20/2024 Type 2 diabetes mellitus with diabetic polyneuropathy (ICD-10 - E11.42) 06/20/2024 Tinea unguium (ICD-10 - B35.1) 01/16/2025 Type 2 diabetes mellitus with diabetic polyneuropathy (ICD-10 - E11.42) 01/16/2025 Tinea unguium (ICD-10 - B35.1) 05/15/2025 Type 2 diabetes mellitus with diabetic polyneuropathy (ICD-10 - E11.42) 05/15/2025 Tinea unguium (ICD-10 - B35.1) 01/16/2025 Other hammer toe(s) (acquired), right foot (ICD-10 - M20.41) Patient Educated with: DIABETIC FOOT CARE INSTRUCTIONS. pdf (DIABETIC FOOT CARE INSTRUCTIONS. pdf) 01/16/2025 Other hammer toe(s) (acquired), left foot (ICD-10 - M20.42) Plan Of Treatment Pending Test Test Name Order Date 26674-JXWKOQO NAIL, 6 OR MORE 04/30/2015 52782-VOWCOCY NAIL, 6 OR MORE 07/30/2015 10609-GILAXWU NAIL, 6 OR MORE 11/08/2015 09840-CSHPHLH NAIL, 6 OR MORE 02/25/2016 34961-MMOCLRV NAIL, 6 OR MORE 06/19/2016 48718-SMJXFSS NAIL, 6 OR MORE 09/22/2016 84237-KJIQWRA NAIL, 6 OR MORE 12/22/2016 08327-THULFPK NAIL, 6 OR MORE 04/06/2017 01974-JGFQXOJ NAIL, 6 OR MORE 07/23/2017 98749-WTVASLC NAIL, 6 OR MORE 10/29/2017 35708-PLZTWWU NAIL, 6 OR MORE 04/22/2018 53809-KSTBGCZ NAIL, 6 OR MORE 07/29/2018 87059-OXNQCJI NAIL, 6 OR MORE 11/11/2018 21209-QOQDQES NAIL, 6 OR MORE 03/17/2019 79748-VMQXCGZ NAIL, 6 OR MORE 07/18/2019 25067-FDPMJXX NAIL, 6 OR MORE 11/21/2019 53491-DGCUJLB NAIL, 6 OR MORE 04/23/2020 47950-QPJHRGW NAIL, 6 OR MORE 10/29/2020 14832-QENNZDF NAIL, 6 OR MORE 02/25/2021 36609-PNLGZZX NAIL, 6 OR MORE 08/29/2021 38161-LJIBGXB NAIL, 6 OR MORE 01/30/2022 60317-RPEVQJW NAIL, 6 OR MORE 07/07/2022 00418-TDPFMTX NAIL, 6 OR MORE 12/08/2022 96089-BIEFAQV NAIL, 6 OR MORE 05/07/2023 99631-HPDQLEE NAIL, 6 OR MORE 12/21/2023 63068-BCLATAJ NAIL, 6 OR MORE 06/20/2024 66850-LXBIVPS NAIL, 6 OR MORE 01/16/2025 31402-GJWAMZI NAIL, 6 OR MORE 05/15/2025 93993-Slis Destruction, -07/07/2022 44501-Brba Destruction, -05/07/2023 39542-Bbuj Destruction, -12/08/2022 85701-Irxj Destruction, -14 01/30/2022 08343-Wyla Destruction, -14 08/29/2021 02663-Vsia Destruction, -11/08/2015 75863-Fjib Destruction, -14 07/30/2015 21281-Dxwa Destruction, 1-14 04/30/2015 55163 I&D ABSCESS- SIMPLE,SINGLE 016 35908 I&D ABSCESS- SIMPLE,SINGLE 020 32266-AHVJ SKIN LESIONS, OVER 4 11/21/19 20 39758-NSHA SKIN LESIONS, OVER 4 07/18/20 19 09231-FCUB SKIN LESIONS, OVER 4 03/17/20 19 53363-MOXX SKIN LESIONS, OVER 4 11/11/19 19 06172-TYAQ SKIN LESIONS, OVER 4 07/29/20 18 71022-MXJA SKIN LESIONS, OVER 4 04/22/20 18 53789-XBAK SKIN LESIONS, OVER 4 10/29/19 18 32632-YWQO SKIN LESIONS, OVER 4 07/23/20 17 77305-VRPP SKIN LESIONS, OVER 4 11/08/19 16 05916-JHIQ SKIN LESIONS, OVER 4 04/30/20 15 52900-OCCO SKIN LESIONS, OVER 4 07/30/20 15 49264-QVNU SKIN LESIONS, OVER 4 12/22/19 17 27269-MBHP SKIN LESIONS, OVER 4 04/06/20 17 15198-XFFW SKIN LESIONS, OVER 4 09/22/20 16 96950-XKBB SKIN LESIONS, OVER 4 06/19/20 16 15811-XGJZ SKIN LESIONS, OVER 4 02/25/20 16 79710-SCAF SKIN LESIONS, OVER 4 08/29/20 21 83128-NBXL SKIN LESIONS, OVER 4 02/26/20 21 02776-OGAW SKIN LESIONS, OVER 4 10/29/19 21 00882-YVFU SKIN LESIONS, OVER 4 04/23/20 20 24196-MBPO SKIN LESIONS, OVER 4 01/31/20 22 24798-MSFN SKIN LESIONS, OVER 4 07/07/20 22 27932-QPMK SKIN LESIONS, OVER 4 12/08/19 23 33380-ODAA SKIN LESIONS, OVER 4 05/07/20 23 48289-BYZA SKIN LESIONS, OVER 4 05/15/20 25 91746-DVPB SKIN LESIONS, OVER 4 01/17/20 25 07529-LKFV SKIN LESIONS, OVER 4 06/20/20 24 94301-VZTI SKIN LESIONS, OVER 4 12/21/19 24 Next Appt Details Provider Name:Jerome Nava , 09/14/2025 10:30:00 AM, [address] [facility], [place], [address], Insurance Providers Payer Name Payer Address Payer Phone Subscriber Number Group Number Insured Name Patient Relationship to Insured Coverage Start Date Coverage End Date [employer] Preferred [address] [place] [address] [id number] Gamal Dominguez Self - patient is the insured Medical (General) History Medical History History ICD Code Chicken pox Mumps Measles Cholesterol Reflux type II diabetes Surgical History Surgery Date(Month/Year) angioplasty 10/1994 stent 10/1999 cataract-lens implants, left eye 016 Heart stent 06/2017
--- OUTSIDE RECORDS SUMMARY | 2025-06-20 13:08 | XMS_ITS | Clinical Summary ---
Author Organization [facility] Address [address] [place] [address] Phone Care Team Providers Care Section Crews Activities Clerk Name Role Phone Ondina Ferreira MD Primary Care Provider [phone] Allergies Active Allergy Reactions Criticality Noted Date Comments Amoxicillin-Pot Clavulanate Cough 03/28/20 24 Influenza Virus Vaccine, Marjorie e Attenuated Other High 06/17/2023 Minocycline Other High 11/23/2023 Delerium tremors Sulfa (Sulfonamide Antibiotics) Other Low 06/25 Sulfamethoxazole-Trimethoprim Other 2023 Medications albuterol HFA (PROAIR HFA ; PROVENTIL HFA ; VENTOLIN HFA) 90 mcg/actuation inhaler Inhale 2 Puffs into the lungs every 6 hours as needed. Active aspirin 81 mg EC tablet Take 1 Tablet by mouth daily. Active cetirizine (ZyrTEC) 10 mg tablet Take 1 Tab by mouth daily. 0 Active clotrimazole-b etamethasone (LOTRISONE) 1-0.05 % cream Apply once daily to feet 4 Active umeclidinium-v ilanteroL (Anoro Ellipta) 62.5-25 mcg/actuation inhaler Anoro Ellipta Active azithromycin (ZITHROMAX) 500 mg tablet M-W-F 5 Active ipratropium-al buteroL (DUONEB) 0.5-2.5 mg/3 mL nebulizer solution Take 3 mL by nebulization 3 (three) times a day. 5 Active risperiDONE (RisperDAL) 2 mg tablet Take 1 mg by mouth 1 (one) time each day. NEEDED 5 Active atorvastatin (LIPITOR) 80 mg tablet Take 1 tablet (80 mg total) by mouth 1 (one) time each day. 90 tablet 1 5 Active metFORMIN (GLUCOPHAGE) 500 mg tablet Take 1 tablet (500 mg total) by mouth 2 (two) times a day with meals. 180 tablet 1 5 Active melatonin 5 mg tablet,chewabl e Chew 5 mg at bedtime. Active blood-glucose meter (Accu-Chek Guide Glucose Meter) miscIndication s:Type 2 diabetes mellitus without complication, without long-term current use of insulin ([facility] V24, [facility] V28) USE DIRECTED TO TEST BLOOD SUGAR TWO (2) TIMES A DAY. E11.9 - REPLACES ONETOUCH 1 kit 5 Active blood sugar diagnostic (Accu-Chek Guide test strips) test stripIndicatio ns:Type 2 diabetes mellitus without complication, without long-term current use of insulin ([facility] V24, [facility] V28) USE DIRECTED TO TEST BLOOD SUGAR TWO (2) TIMES A DAY. E11.9 - REPLACES ONETOUCH 100 each 12 5 Active Accu-Chek Softclix LancetsIndicat ions:Type 2 diabetes mellitus without complication, without long-term current use of insulin ([facility] V24, [facility] V28) USE DIRECTED TO TEST BLOOD SUGAR TWO (2) TIMES A DAY. E11.9 - REPLACES ONETOUCH 100 each 12 5 Active OneTouch Ultra Test test strip USE TO TEST BLOOD SUGAR TWO TIMES A DAY 100 strip 3 5 025 Discontin ued(Formu chuck change) Active Problems Problem Noted Date Diagnosed Date Chronic hypoxemic respirator y failure ([facility] V24, [facility] V28) 11/23/2023 Chronic obstructive pulmonar y disease ([facility] V24, [facility] V28) 11/23/2023 Type 2 diabetes mellitus wit hout complication, without long-term current use of insulin ([facility] V24, [facility] V28) 11/23/2023 CAD (coronary artery disease) 07/11/2010 Overview (09/25/2024): stented Hand arthritis 07/11/2010 Moderate mixed hyperlipidemia not requiring stat in therapy 07/11/2010 Tympanic membrane perforation 09/29/2008 Umbilical hernia 04/26/2007 Esophageal reflux 05/31/2006 Essential hypertension, benign 05/31/2006 Encounters Date Type Department Care Team Description 06/13/2025 Telephone Adult Medicine [address] [phone] Lena Gamez RN 05/18/2025 11:30 AM EDT Office Visit [facility] Hematology Oncology [address] [place] [phone] Carlene Deras MD Thrombocytopenia ([facility] V24) (Primary Dx) 05/16/2025 12:45 PM EDT Office Visit Adult [address] [phone] Radha Mike PA Type 2 diabetes mellitus without complication, without long-term current use of insulin ([facility] V24, [facility] V28) (Primary Dx); Hypomagnesemia; Internal rotation of left foot; 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 ([facility] V24, [facility] V28) 04/25/2025 1:30 PM EDT Office Visit Adult [address] [phone] Elie Noland PA Impacted cerumen of left ear (Primary Dx); Hx of perforation of tympanic membrane; Coronary artery disease without angina pectoris, unspecified vessel or lesion type, unspecified whether [place] or transplanted heart; Type 2 diabetes mellitus without complication, without long-term current use of insulin ([facility] V24, [facility] V28) 04/23/2025 11:30 AM EDT Office Visit [facility] Hematology Oncology [address] [place] [phone] Carlene Deras MD Thrombocytopenia (CMS/HCC V24); 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 from Last 3 Months Immunizations Name Administration Dates Next Due Influenza trivalent, 0.5mL, preservative free (Fluarix; FluLaval; Fluzone) ages 6mo and older (Afluria) 3 years and older 07/11/2012 Pfizer SARS-CoV-2 COVID-19, mRNA, LNP-S, preservative free 12/25/2020,12/04/2020 Pneumococcal conjugate 20 va lent (Prevnar 20, PCV 20) 2mo and older 06/08/2023 Pneumococcal polysaccharide 23 valent (Pneumovax 23) 2yo and older 02/20/2011 Td, Unspecified 05/02/2003 Tdap Tetanus diptheria acell ular pertussis (Boostrix; Adacel) 7yo and older 01/05/2022 Surgical History Surgery Date Site/Laterality Comments COLONOSCOPY PROCEDURE: [place] COLONOSCOPY STOMA DX INCLUDING COLLJ SPEC SPX; COMMENT: , recommended but he declines 05/31/06 COLONOSCOPY PROCEDURE: [place] COLONOSCOPY STOMA DX INCLUDING COLLJ SPEC SPX; COMMENT: Recommended but he declines 04/25/07,he has had cardiac stenting ,he has had part of his sigmoid removed. Medical History Medical History Date Comments Esophageal reflux 05/31/2006 DX:Esophageal reflux Essential hypertension, benign 05/31/2006 D X:Essential hypertension, benign Unspecified disorder of lipo id metabolism 05/31/2006 DX:Unspecified disorder of l ipoid metabolism Tympanic membrane perforation 09/29/2008 DX :Tympanic membrane perforation CAD (coronary artery disease) 07/11/2010 DX :CAD (coronary artery disease) Family History Medical History Relation Name Comments Other: Other Father at 60, was a type copy examiner Other: Lucas Chaudhari Mother at 84 Stroke Mother in her 30s Relation Name Status Comments Father Mother Social History Tobacco Use Types Packs/Day Years Used Date Smoking Tobacco: Former Passive Smoke Exposure: Never Smokeless Tobacco: Former Tobacco Cessation:Counseling Given: Not Answered Alcohol Use Standard Drinks/Week Comments No 0 (1 standard drink = 0.6 oz pur e alcohol) Housing Instability Answer Date Recorde d Are you worried that in the next 2 months you may not have stable housing? No 01/25/2025 Food Access & Nutrition Answer Date Rec orded Do you have access to a vari ety of food including fruits and vegetables? Yes 01/25/2025 Access to Healthcare Answer Date Record ed Within the last 3 months, ho w many times did you visit the emergency department for your medical care? 0 01/25/2025 Health Literacy Answer Date Recorded How often do you need to hav e someone help you when you read instructions, pamphlets, or other written material from your doctor or pharmacy? Rarely 01/25/2025 Caregiver: How often do you need to have someone help you when you read instructions, pamphlets, or other written material from your doctor or pharmacy? Not on file 01/25/2025 Financial Risk Answer Date Recorded How hard is it for you to pa y for the very basics like food, housing, medical care, and air conditioning / heating? Patient declined 01/25/2025 Transportation Answer Date Recorded Has the lack of transportati on kept you from meetings, work, or from getting things needed for daily living? Patient declined 01/25/2025 Has the lack of transportati on kept you from medical appointments or from getting medications? Yes 01/25/2025 Social Isolation Answer Date Recorded How often do you feel lonely or isolated from those around you? Patient declined 01/25/2025 Food Risk Answer Date Recorded Within the past 12 months we worried whether our food would run out before we got money to buy more. Never true 01/25/2025 Within the past 12 months th e food we bought just didn't last and we didn't have money to get more. Never true 01/25/2025 Dependent Care Answer Date Recorded Do you need help finding or paying for care for your loved ones. For example, child care lead teacher or elderly care for an older adult? No 01/25/2025 Education Answer Date Recorded Do you think completing more education or training, like finishing a GED, going to college, or learning a trade, would be helpful for you? No 01/25/2025 Employment and Income Answer Date Recor ded During the last four weeks, have you been actively looking for work? No 01/25/2025 Living Situation Answer Date Recorded What is your living situation? 0 01/25/2025 Sex and Gender Information Value Date Recorded Sex Assigned at Not on file Legal Sex Male 6:44 AM EST Gender Identity Not on file Sexual Orientation Not on file Obstetrics History Last Filed Vital Signs Vital Sign Reading Time Taken Comments Blood Pressure 115/58 05/18/2025 11:38 AM EDT Pulse 85 05/18/2025 11:38 AM EDT Temperature 37.3 C (99.1 F) 05/18/2025 11:38 AM EDT Respiratory Rate 14 05/16/2025 12:45 PM EDT Oxygen Saturation 93% 05/18/2025 11:38 AM EDT Inhaled Oxygen Concentration - - Weight 71.7 kg (158 lb) 05/18/2025 11:38 AM EDT Height 165.1 cm (5' 5 ) 04/25/2025 1:01 PM EDT Body Mass Index 26.29 04/25/2025 1:01 PM EDT Plan of Treatment Upcoming Encounters Date Type Department Care Team (Late st Contact Info) Description 07/10/2025 11:00 AM EDT Consult Gastroenterology - [place] [address] [place] [phone] Giorgi Rivas MD [address] [place] [phone] 08/30/2025 10:00 AM EST Office Visit Adult Medicine [address] [phone] Ondina Ferreira MD [address] [place] [phone] Health Maintenance Due Date Last Done Comments Diabetes: Annual Retina Eye Exam 1955 Zoster Vaccines (1 of 2) 1995 RSV Immunization Adult Patients (1 - 1-dose 75+ series) 2020 Hepatitis C Screening 09/27/2022 Medicare Annual Wellness Visit 09/27/2022 COVID-19 Vaccine ( - season) 2024 12/25/2020, 12/04/2020 Diabetes: Annual Foot Exam 12/21/2024 12/21/2023 Influenza Vaccine (#1) 2025 07/11/2012 Diabetes: Blood Sugar Control Test (HGBA1C) 11/25/2025 05/25/2025, 02/08/2025, 07/25/2024, Additional history exists Social Influencers of Health Screening 01/25/2026 01/25/2025 Diabetes: Annual Urine Albumin-Creatinine Ratio (uACR) 02/09/2026 02/09/2025, 03/22/2024, 07/20/2022, Additional history exists Diabetes: Annual GFR (Glomerular Filtration Rate) 04/30/2026 04/30/2025, 02/21/2025, 02/08/2025, Additional history exists Hypertension/CHF/CAD Annual BMP Blood Test 04/30/2026 04/30/2025, 02/21/2025, 02/08/2025, Additional history exists Falls Risk Assessment 05/16/2026 05/16/2025, 025 Cholesterol Screening (Lipid Panel) 02/08/2030 02/08/2025, 03/15/2024, 03/15/2024 DTaP,Tdap,and Td Vaccines (3 - Td or Tdap) 01/06/2032 01/05/2022, 05/02/2003 Pneumococcal Vaccine: 50+ Years Completed 06/08/2023, 02/20/2011 Depression Screening Completed 05/12/2025 HIB Vaccines Aged Out No longer eligi ble based on patient's age to complete this topic HPV Vaccines Aged Out No longer eligi ble based on patient's age to complete this topic Hepatitis A Vaccines Aged Out No long er eligible based on patient's age to complete this topic Hepatitis B Vaccines Aged Out No long er eligible based on patient's age to complete this topic IPV Vaccines Aged Out No longer eligi ble based on patient's age to complete this topic MMR Vaccines Aged Out No longer eligi ble based on patient's age to complete this topic Meningococcal ACWY Vaccine Aged Out N o longer eligible based on patient's age to complete this topic Meningococcal B Vaccine Aged Out No l onger eligible based on patient's age to complete this topic RSV Immunization Patients Under 20 months Aged Out No longer eligible based on patient's age to complete this topic Varicella Vaccines Aged Out No longer eligible based on patient's age to complete this topic Procedures Procedure Name Priority Date/Time Associated Diagnosis Comments HEMOGLOBIN A1C Routine 05/25/2025 11:40 AM EDT Type 2 diabetes mellitus without complication, without long-term current use of insulin ([facility] V24, [facility] V28) MAGNESIUM Routine 05/25/2025 11:40 AM EDT Hypomagnesemia POC GLUCOSE Routine 05/16/2025 12:57 PM EDT Type 2 diabetes mellitus without complication, without long-term current use of insulin ([facility] V24, [facility] V28) CBC WITH AUTO DIFFERENTIAL Routine 04/30/2025 12:12 PM EDT Thrombocytopenia ([facility] V24) 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 COMPREHENSIVE METABOLIC PANEL Routine 04/30/2025 12:12 PM EDT Thrombocytopenia ([facility] V24) 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 CBC AND DIFFERENTIAL Routine 04/30/2025 12:12 PM EDT Thrombocytopenia ([facility] V24) 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 PLATELET ANTIBODIES, INDIRECT Routine 04/30/2025 12:12 PM EDT Thrombocytopenia ([facility] V24) 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 PLATELET ANTIBODIES, DIRECT Routine 04/30/2025 12:12 PM EDT Thrombocytopenia ([facility] V24) 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 PROSTATE SPECIFIC ANTIGEN DIAGNOSTIC Routine 04/30/2025 12:12 PM EDT Thrombocytopenia ([facility] V24) 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 MICROALBUMIN CREATININE URINE RATIO Routine 02/09/2025 8:48 AM EDT Type 2 diabetes mellitus without complication, without long-term current use of insulin ([facility] V24, [facility] V28) LIPID PANEL WITH REFLEX TO DIRECT LDL Routine 02/08/2025 9:06 AM EDT Type 2 diabetes mellitus without complication, without long-term current use of insulin ([facility] V24, [facility] V28) DIABETES FOOT EXAM Routine 12/21/2023 from Last 3 Months or Most Recently Relevant to Health Maintenance Results * Magnesium (05/25/2025 11:40 AM EDT) [facility] Magnesium 2.0 1.9 - 2.6 mg/dL LAB CHEMISTRY METHOD 05/25/2025 3:03 PM EDT [facility] Blood Venous blood specimen / Unknown Venipuncture / Unknown 05/25/2025 11:40 AM EDT 05/25/2025 11:40 AM EDT Radha TATE LAB BLOOD ORDERABLES Final Res ult Performing Organization Address City/[facility] [address]/ZIP Co de Phone Number [facility] [address] [place] [address], [place] [phone] * (ABNORMAL) Hemoglobin A1c (05/25/2025 11:40 AM EDT) [facility] Hemoglobin A1C 6.7(H) <6.5 % LAB CHEMISTRY METHOD 05/25/2025 11:04 PM EDT [facility] Mean Bld Glu Estim. 146 mg/dL LAB CHEMISTRY METHOD 05/25/2025 11:04 PM EDT [facility] Blood Venous blood specimen / Unknown Venipuncture / Unknown 05/25/2025 11:40 AM EDT 05/25/2025 11:40 AM EDT Radha TATE LAB BLOOD ORDERABLES Final Res ult [facility] [address] [place] [address], [place] [phone] * (ABNORMAL) POC glucose manually resulted (05/16/2025 12:57 PM EDT) Pathologist [facility] Glucose POC 199 mg/dL Blood Capillary blood specimen / Unknown 05/16/2025 12:57 PM EDT Radha TATE POINT OF CARE TEST ENTER/EDIT ORDERABLES Final Result * Prostate specific antigen diagnostic (04/30/2025 12:12 PM EDT) [facility] PSA 0.71 0.00 - 4.00 ng/mL LAB CHEMISTRY METHOD 04/30/2025 2:29 PM EDT [facility] Blood Venous blood specimen / Unknown Venipuncture / Unknown 04/30/2025 12:12 PM EDT 04/30/2025 12:24 PM EDT Narrative [facility] - 04/30/2025 2:29 PM EDT The Siemens Advia Centaur Chemiluminescent Immunoassay is used. Results obtained with different assay methods or kits cannot be used interchangeably. Results cannot be interpreted as absolute evidence of the presence or absence of malignant disease. Carlene Deras MD LAB BLOOD ORDERABLES Final R esult [facility] [address] [place] [address], * (ABNORMAL) CBC auto differential (04/30/2025 12:12 PM EDT) Pathologist [facility] WBC 7.0 4.8 - 10.8 K/mcL LAB HEMETOLOGY METHOD 04/30/2025 2:06 PM EDT [facility] RBC 4.30(L) 4.50 - 5.50 M/mcL LAB HEMETOLOGY METHOD 04/30/2025 2:06 PM EDT [facility] Hemoglobin 13.4(L) 13.5 - 17.5 g/dL LAB HEMETOLOGY METHOD 04/30/2025 2:06 PM [facility] Hematocrit 40.2(L) 42.0 - 54.0 % LAB HEMETOLOGY METHOD 04/30/2025 2:06 PM [facility] MCV 93.5 79.0 - 98.0 FL LAB HEMETOLOGY METHOD 04/30/2025 2:06 PM [facility] MCH 31.2 27.0 - 32.0 pcg LAB HEMETOLOGY METHOD 04/30/2025 2:06 PM [facility] MCHC 33.3 32.0 - 37.0 g/dL LAB HEMETOLOGY METHOD 04/30/2025 2:06 PM [facility] RDW 13.2 11.0 - 15.0 % LAB HEMETOLOGY METHOD 04/30/2025 2:06 PM [facility] Platelets 118(L) 130 - 400 K/mcL LAB HEMETOLOGY METHOD 04/30/2025 2:06 PM [facility] MPV 10.5 7.0 - 11.0 FL LAB HEMETOLOGY METHOD 04/30/2025 2:06 PM [facility] NRBC 0.0 <1.0 % LAB HEMETOLOGY METHOD 04/30/2025 2:06 PM [facility] NRBC Absolute 0.00 <0.10 K/mcL LAB HEMETOLOGY METHOD 04/30/2025 2:06 PM [facility] Neutrophils Relative 67.6 % LAB HEMETOLOGY METHOD 04/30/2025 2:06 PM [facility] Lymphocytes Relative 17.6 % LAB HEMETOLOGY METHOD 04/30/2025 2:06 PM [facility] Monocytes Relative 9.4 % LAB HEMETOLOGY METHOD 04/30/2025 2:06 PM EDT [facility] Eosinophils Relative 4.3 % LAB HEMETOLOGY METHOD 04/30/2025 2:06 PM EDT [facility] Basophils Relative 0.7 % LAB HEMETOLOGY METHOD 04/30/2025 2:06 PM [facility] Immature Granulocytes Relative 0.4 % LAB HEMETOLOGY METHOD 04/30/2025 2:06 PM EDT [facility] Neutrophils Absolute 4.72 1.50 - 7.00 K/mcL LAB HEMETOLOGY METHOD 04/30/2025 2:06 PM EDT [facility] Lymphocytes Absolute 1.23 1.00 - 5.00 K/mcL LAB [facility] Monocytes Absolute 0.66 0.20 - 1.00 K/mcL LAB HEMETOLOGY METHOD 04/30/2025 2:06 PM EDT [facility] Eosinophils Absolute 0.30 0.00 - 0.50 K/mcL LAB HEMETOLOGY METHOD 04/30/2025 2:06 PM T [facility] Basophils Absolute 0.05 0.00 - 0.20 K/mcL LAB HEMETOLOGY METHOD 04/30/2025 2:06 PM [facility] Immature Granulocytes Absolute 0.03 0.00 - 0.03 K/mcL LAB HEMETOLOGY METHOD 04/30/2025 2:06 PM T [facility] Blood Venous blood specimen / Unknown Venipuncture / Unknown 04/30/2025 12:12 PM EDT 04/30/2025 12:23 PM EDT Carlene Deras MD LAB BLOOD ORDERABLES Final R esult [facility] [address] [place] [address], * Platelet antibodies, indirect (04/30/2025 12:12 PM EDT) Pathologist [facility] Overall Result Negative Not Applicable 05/04/2025 8:20 AM EDT [facility] Interpretation SEE BELOW 05/04/2025 8:20 AM EDT [facility] Comment:RESULT: No platelet antibodies were detected. GPIIb/IIIa (Cell-1) Negative Not Applicable 05/04/2025 8:20 AM EDT [facility] Comment: Antigens: HPA-1a/1a,3a/3a,4a/ Observed OD Value: 0.237/Cutoff: 0.275 GPIIb/IIIa (Cell-2) Negative Not Applicable 05/04/2025 8:20 AM EDT [facility] Comment: Antigens: HPA-1b/1b,3b/3b,4a/ Observed OD Value: 0.215/Cutoff: 0.258 GPIa/IIa (Cell-1) Negative Not Applicable 05/04/2025 8:20 AM EDT [facility] Comment: Antigens: HPA-5b/5b Observed OD Value: 0.214/Cutoff: 0.232 GPIa/IIa (Cell-2) Negative Not Applicable 05/04/2025 8:20 AM EDT [facility] Comment: Antigens: HPA-5a/5a Observed OD Value: 0.222/Cutoff: 0.232 GPIb/IX Negative Not Applicable 05/04/2025 8:20 AM EDT [facility] Comment:Observed OD Value: 0 .029/Cutoff: 0.069 GPIV Negative Not Applicable 05/04/2025 8:20 AM EDT [facility] Comment:Observed OD Value: 0 .083/Cutoff: 0.287 HLA Class I Negative Not Applicable 05/04/2025 8:20 AM EDT [facility] Comment: Observed OD Value: 0.086/Cutoff: 0.243 ADDITIONAL INFORMATION The presence of other HPA polymorphic variants located on GPIIb/IIIa (HPA-6,7,8,9,10,11,14,16,17,19,20,21), GPIa/IIa (HPA-13,18), and GPIb/IX (HPA-12) have not been determined for this assay. Therefore, antibodies to these may be reactive in this assay. Method: Marija Based Assay CLIA: [id number] CLIA Irrigator Head: LATISHA SPENCER,Ph.D. Test Performed by: [address] [address] Irrigator Head: Latisha Spencer Ph.D.; CLIA# [id number] Reason for Request? NA 05/04/2025 8:20 AM EDT [facility] IVIg in last month? NA 05/04/2025 8:20 AM EDT [facility] Plt Transfusion in last 72 hours? NA 05/04/2025 8:20 AM EDT [facility] Platelet Count x 10(9)/L ? NA 05/04/2025 8:20 AM EDT [facility] Blood Venous blood specimen / Unknown Venipuncture / Unknown 04/30/2025 12:12 PM EDT 04/30/2025 12:21 PM EDT Carlene Deras MD LAB BLOOD ORDERABLES Final R esult [facility] [address] [place] [address] * Platelet antibodies, direct (04/30/2025 12:12 PM EDT) Platelet Ab, Direct, Flow Cyto NEGATIVE NEGATIVE 05/04/2025 2:54 AM EDT [facility] Comment: This test was developed and its analytical performance characteristics have been determined by [facility]. It has not been cleared or approved by the FDA. This assay has been validated pursuant to the CLIA regulations and is used for clinical purposes. Test Performed at: [facility] [address] [address] Maddie Snowden MD, PhD, [facility] Blood Venous blood specimen / Unknown Venipuncture / Unknown 04/30/2025 12:12 PM EDT 04/30/2025 12:23 PM EDT Carlene Deras MD LAB BLOOD ORDERABLES Final R esult [facility] [address] [place] [address] * (ABNORMAL) Comprehensive metabolic panel (04/30/2025 12:12 PM EDT) Sodium 138 133 - 145 mmol/L LAB CHEMISTRY METHOD 04/30/2025 1:52 PM EDT [facility] Potassium 4.4 3.5 - 5.5 mmol/L LAB CHEMISTRY METHOD 04/30/2025 1:52 PM [facility] Chloride 108 96 - 110 mmol/L LAB CHEMISTRY METHOD 04/30/2025 1:52 PM [facility] CO2 24 21 - 32 mmol/L LAB CHEMISTRY METHOD 04/30/2025 1:52 PM [facility] Anion Gap 6 3 - 11 LAB CHEMISTRY METHOD 04/30/2025 1:52 PM [facility] Glucose 116(H) 70 - 100 mg/dL LAB CHEMISTRY METHOD 04/30/2025 1:52 PM [facility] BUN 22 5 - 25 mg/dL LAB CHEMISTRY METHOD 04/30/2025 1:52 PM [facility] Creatinine 1.39(H) 0.70 - 1.30 mg/dL LAB CHE[facility]STR[facility] METHOD [facility]25 [facility] e[facility] 52(L) >=60 mL/min/1. 73m2 LAB CHEMISTRY METHOD 04/30/2025 1:52 PM [facility] Comment:Calculation based on the Chronic Kidney Disease Epidemiology Collaboration (CKD-EPI) equation refit without adjustment for race. BUN/Creatinine Ratio 15.8 LAB CHEMISTRY METHOD 04/30/2025 1:52 PM [facility] Calcium 9.7 8.5 - 10.5 mg/dL LAB CHEMISTRY METHOD 04/30/2025 1:52 PM EDT [facility] AST (SGOT) 39 10 - 42 unit/L LAB CHEMISTRY METHOD 04/30/2025 1:52 PM EDT [facility] ALT (SGPT) 65(H) 10 - 60 unit/L LAB CHEMISTRY METHOD 04/30/2025 1:52 PM EDT [facility] Alkaline Phosphatase 147(H) 42 - 121 unit/L LAB CHEMISTRY METHOD 04/30/2025 1:52 PM EDT [facility] Total Protein 7.7 6.0 - 8.0 g/dL LAB CHEMISTRY METHOD 04/30/2025 1:52 PM EDT [facility] Albumin 4.0 3.2 - 5.0 g/dL LAB CHEMISTRY METHOD 04/30/2025 1:52 PM EDT [facility] Total Bilirubin 0.9 0.0 - 1.4 mg/dL LAB CHEMISTRY METHOD 04/30/2025 1:52 PM EDT [facility] Blood Venous blood specimen / Unknown Venipuncture / Unknown 04/30/2025 12:12 PM EDT 04/30/2025 12:24 PM EDT Carlene Deras MD LAB BLOOD ORDERABLES Final R esult [facility] [address] [place] [address], * Microalbumin creatinine urine ratio (02/09/2025 8:48 AM EDT) Creatinine, Urine 111.0 mg/dL LAB CHEMISTRY METHOD 02/09/2025 5:12 PM EDT [facility] Microalb, Ur 20.3 0.0 - 29.0 mg/L LAB CHEMISTRY METHOD 02/09/2025 5:12 PM EDT [facility] Microalb/Creat Ratio 18 <30 mg/g creat LAB CHEMISTRY METHOD 02/09/2025 5:12 PM EDT [facility] Urine Urine specimen obtained by clean catch procedure / Unknown Non-blood Collection / Unknown 02/09/2025 8:48 AM EDT 02/09/2025 8:48 AM EDT us Ondina Ferreira MD LAB URINE ORDERABLES Final Resul t [facility] [address] [place] [address], [place] [phone] * (ABNORMAL) Lipid panel with reflex to direct LDL (02/08/2025 9:06 AM EDT) Cholesterol 111 0 - 200 mg/dL LAB CHEMISTRY METHOD 02/08/2025 1:00 PM EDT [facility] Triglycerides 151(H) 0 - 150 mg/dL LAB CHEMISTRY METHOD 02/08/2025 1:00 PM EDT [facility] HDL 41 >=40 mg/dL LAB CHEMISTRY METHOD 02/08/2025 1:00 PM EDT [facility] LDL Calculated 40 0 - 100 mg/dL LAB CHEMISTRY METHOD 02/08/2025 1:00 PM [facility] VLDL Cholesterol [place] 30.2 mg/dL LAB CHEMISTRY METHOD 02/08/2025 1:00 PM EDT [facility] Non HDL Chol. (LDL+VLDL) 70 <145 mg/dL LAB CHEMISTRY METHOD 02/08/2025 1:00 PM EDT [facility] Chol/HDL Ratio 2.7 0.0 - 4.4 LAB CHEMISTRY METHOD 02/08/2025 1:00 PM [facility] Blood Venous blood specimen / Unknown Venipuncture / Unknown 02/08/2025 9:06 AM EDT 02/08/2025 9:06 AM EDT us Ondina Ferreira MD LAB BLOOD ORDERABLES Final Resul t [facility]ICA[facility]A SARGENT [place] ([facility]) [facility] [address] [place] [address], * Diabetes Foot Exam (12/21/2023) Diabetes: Annual Foot Exam Abstracted us Historical Provider MD HEALTH MAINTENANCE Final Result from Last 3 Months or Most Recently Relevant to Health Maintenance Insurance [employer] [facility] Care Teams Section Crews Activities Clerk Relationship Specialty Start Date End Date Ondina Ferreira MD [address] [place] [id number] PCP - General Internal Medicine 11/29/24
--- OUTSIDE RECORDS SUMMARY | 2025-06-20 13:08 | XMS_ITS | Encounter Summary ---
Author Organization [facility] Address [address] [place] [address] [place] [phone] Phone Care Team Providers Care Skein Dyer Name Role Phone Jair Poe MD Unavailable [phone] Prakash Bower MD Primary Care Provider [phone] Kamari Carter MD Unavailable [phone] Ondina Ferreira MD Primary Care Provider [phone] Encounter Details Date Type Department Care Team (Late st Contact Info) Description 05/01/2021 Procedure Pass [facility], [address] [id number] Social History Tobacco Use Types Packs/Day Years Used Date Smoking Tobacco: Former Cigarettes 1.5 28.5 0 04/10/1958 - 09/28/1986 Smokeless Tobacco: Never Alcohol Use [...] Description 08/22/2025 11:15 AM EDT Office Visit [facility] [address] [facility] 3rd Floor, [address] [place], [place] [phone] Slava Ruiz MD [address] [facility], [address] [place] [address] [email or web address] documented as of this encounter Visit Diagnoses Not on filedocumented in this encounter Additional Health Concerns Assessment Noted Time PHQ-2 Depression Total Score: 0 12/25/19 21 10:32 AM EST documented as of this encounter Care Teams Skein Dyer Relationship Specialty Start Date End Date Prakash Bower MD [address] [place] [phone] [email or web address] PCP - General Internal Medicine 11/26/20 08/31/23 Ondina Ferreira MD [address] [place] [phone] PCP - General 10/06/23 Jair Poe MD [address] [place] [address] [address] [place] [address] Harmonica Maker Cardiology 09/28/18 Kamari Carter MD [address] [place] [address] Ophthalmology 01/13/22 documented as of this encounter Additional Source Comments The information contained in this document represents components of the legal health record. It is not the complete legal health record.[facility]
--- OUTSIDE RECORDS SUMMARY | 2025-06-20 13:08 | XMS_ITS ---
Author Name [facility] Organization Unknown Care Team Organization Name Specialty Phone Email Start Date End [facility] 06/13/2025
--- OUTSIDE RECORDS SUMMARY | 2025-06-20 13:08 | XMS_ITS | Encounter Summary ---
Author Organization [facility] Address [address] [place] [address] [address] [place] [address] Phone Care Team Providers Care Eight Arm Operator Name Role Phone Jair Poe MD Unavailable [phone] Prakash Bower MD Primary Care Provider [phone] Kamari Carter MD Unavailable [phone] Ondina Ferreira MD Primary Care Provider [phone] Encounter Details Date Type Department Care Team (Late st Contact Info) Description 10/08/2022 Procedure Pass [facility] [place] - [address] [id number] Social History Tobacco Use Types Packs/Day Years Used Date Smoking Tobacco: Former Cigarettes 1.5 28.5 0 04/10/1958 - 09/28/1986 Smokeless Tobacco: Never Alcohol Use Standard Drinks/Week Comments Not Currently 0 (1 standard drink = 0.6 oz pur e alcohol) Sex and Gender Information Value Date Recorded Sex Assigned at Male 01/05/2022 10:10 AM EDT Legal Sex Male 3:29 PM EDT Gender Identity Male 01/05/2022 10:10 AM EDT Sexual Orientation Not on file documented as of this encounter Plan of Treatment Upcoming Encounters Date Type Department Care Team (Late st Contact Info) Description 08/22/2025 11:15 AM EDT Office Visit [facility] [address] [place] [address] [address]rd Floor, [address] [place] [address] Slava Ruiz MD [address] [facility], [address] [place] [address] [email or web address] documented as of this encounter Visit Diagnoses Not on filedocumented in this encounter Additional Health Concerns Assessment Noted Time PHQ-2 Depression Total Score: 1 02/09/20 23 1:32 PM EDT documented as of this encounter Care Teams Eight Arm Operator Relationship Specialty Start Date End Date Prakash Bower MD [address] [place] [phone] [email or web address] PCP - General Internal Medicine 11/26/20 08/31/23 Ondina Ferreira MD [address] [place] [address] PCP - General 10/06/23 Jair Poe MD [address] [place] [address] [address] [place] [address] Casket Liner Cardiology 09/28/18 Kamari Carter MD [address] [place] [phone] Ophthalmology 01/13/22 documented as of this encounter Additional Source Comments The information contained in this document represents components of the legal health record. It is not the complete legal health record.[facility]
--- OUTSIDE RECORDS SUMMARY | 2025-06-20 13:08 | XMS_ITS | Encounter Summary ---
Author Organization [facility] Address [address] [place] [address] [place] [phone] Phone Care Team Providers Care Paint Tinter Name Role Phone Jair Poe MD Unavailable [phone] Prakash Bower MD Primary Care Provider [phone] Kamari Carter MD Unavailable [phone] Ondina Ferreira MD Primary Care Provider [phone] Encounter Details Date Type Department Care Team (Late st Contact Info) Description 08/27/2022 Procedure Pass [facility] [address] [place] [address] Social History Tobacco Use Types Packs/Day Years [...] Description 08/22/2025 11:15 AM EDT Office Visit [facility] [address] [place] [address] [address]rd Floor, [address] [place] [address] Slava Ruiz MD [address], [address] [place] [address] [email or web address] documented as of this encounter Visit Diagnoses Not on filedocumented in this encounter Additional Health Concerns Assessment Noted Time PHQ-2 Depression Total Score: 0 01/13/20 22 8:13 AM EDT documented as of this encounter Care Teams Paint Tinter Relationship Specialty Start Date End Date Prakash Bower MD [address] [place] [address] [email or web address] PCP - General Internal Medicine 11/26/20 08/31/23 Ondina Ferreira MD [address] [place] [phone] PCP - General 10/06/23 Jair Poe MD [address] [place] [address] Drive [address] [place] [address] Global Marketing Specialist Cardiology 09/28/18 Kamari Carter MD [address] [place] [address] Ophthalmology 01/13/22 documented as of this encounter Additional Source Comments The information contained in this document represents components of the legal health record. It is not the complete legal health record.[facility]
--- OUTSIDE RECORDS SUMMARY | 2025-06-20 13:09 | XMS_ITS | Clinical Summary ---
Author Organization [facility] Address [address] [place] [id number] Phone Care Team Providers Care Church Organist Name Role Phone Jair Poe MD Unavailable [phone] Kamari Carter MD Unavailable [phone] Ondnia Ferreira MD Primary Care Provider [phone] Allergies Active Allergy Reactions Criticality Noted Date Comments Amoxicillin-Pot Clavulanate Cough 03/28/2024 Covid-19 (Sars-Cov-2) Vaccine, Rosa Cell Rash High 01/15/2021 Full body skin rash from Moderna/Pfizer Covid-19 Vacc. 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 2 019 Active triamcinolone acetonide 0.1 % creamIndication s:Pruritic rash Apply topically every morning for 14 days. Apply to rashes daily 14 days. 45 g 021 Active Additional Information Patient not taking.Reported on 05/24/2024 cetirizine (ZYRTEC) 10 mg capsule Active nitroglycerin (NITRODUR) 0.1 mg/hr once as needed. Acti ve aspirin 81 MG EC tablet Take 81 mg by mouth daily. Active ONETOUCH DELICA LANCETS 33 gauge Misc Inject 1 Test into the skin 2 (two) times a day. In vitro 100 each 11 Active mucus clearing device Usha 1 Act by Miscellaneous route 2 (two) times a day. 1 each 1 022 Active Additional Information Patient not taking.Reported on 04/26/2025 metFORMIN (GLUCOPHAGE) 500 MG tabletIndicatio ns:Diabetes mellitus TAKE 2 TABLETS BY MOUTH EVERY DAY WITH BREAKFAST 180 tablet 3 023 Active Additional Information Patient taking differently: 500 mg Oral 2 times daily with meals, Reported on 04/26/2025 atorvastatin (LIPITOR) 80 MG tabletIndicatio ns:Medication refill,Atherosc lerosis of coronary artery TAKE 1 TABLET BY MOUTH EVERYDAY AT BEDTIME 90 tablet 3 023 Active ONETOUCH ULTRA TEST Strp stripsIndicatio ns:Diabetes mellitus INJECT 1 EACH UNDER THE SKIN 2 (TWO) TIMES A DAY. 100 strip 3 023 Active wound dressings (TRIAD) Pste paste Apply 1 Application topically as needed. Desitin Active metoprolol succinate (TOPROL-XL) 50 MG 24 hr tabletIndicatio ns:Medication refill,Benign essential hypertension take 1 tablet by mouth every day 90 tablet 3 024 Active Additional Information Patient not taking.Reported on 04/26/2025 clotrimazole-be tamethasone (LOTRISONE) cream APPLY ONCE DAILY TO FEET Active amoxicillin-cla vulanate (AUGMENTIN) 875-125 mg per tablet Take 1 tablet by mouth 2 (two) times a day. Active azithromycin (ZITHROMAX) 250 MG tablet TAKE 2 TABLETS BY MOUTH TODAY, THEN TAKE 1 TABLET DAILY FOR 4 DAYS DIRECTED Active fluticasone-ume clidin-vilanter (TRELEGY ELLIPTA) 100-62.5-25 mcg inhalation powder Inhale into the lungs. Active guaiFENesin (MUCINEX) 600 mg ER biphasic tablet Take 1,200 mg by mouth. Active azithromycin (ZITHROMAX) 500 MG tablet Take 1 tablet (500 mg total) by mouth 3 (three) times a week on Wednesday, Wednesday, Wednesday. 15 tablet 11 025 Active ipratropium-alb uteroL (DUONEB) 0.5-3 mg (2.5 mg base)/3 mL nebulizer solution Take 3 mL by nebulization every 6 (six) hours as needed for wheezing. 300 mL 11 025 Active Additional Information Patient taking differently:3 mL Nebulization Every 6 hours PRN, wheezing,3 times daily, Reported on 04/26/2025 umeclidinium-vi lanteroL (ANORO ELLIPTA) 62.5-25 mcg/actuation diskus inhaler USE 1 INHALATION BY MOUTH ONCE DAILY AT THE SAME TIME EACH DAY 3 each 3 Active risperiDONE (RISPERDAL) 2 MG tablet as needed. 025 Active albuterol 90 mcg/actuation inhalerIndicati ons:Medication refill USE 2 INHALATIONS BY MOUTH EVERY 4 HOURS NEEDED 51 g 3 025 Active albuterol 90 mcg/actuation inhalerIndicati ons:Medication refill Inhale 2 puffs into the lungs every 4 (four) hours as needed. 54 g 3 024 2024 Discontinued Active Problems Problem Noted Date Diagnosed Date Pneumonia due to COVID-19 virus 07/07/2023 Assessment & Plan (07/07/2023 3:19 PM EDT): Patient has completed antibiotic treatment and is breathing well current regimen. Continue Trelegy as before. Visit for suture removal 04/07/2023 Assessment & Plan (04/07/2023 9:23 AM EDT): From the right elbow 4 sutures removed. No bleeding, the sutured wound appears without any signs of infection, purulence, scar tissue is not overgrown. Elbow laceration, right, sequela 04/07/2023 Assessment & Plan (04/07/2023 9:23 AM EDT): This is approximately 14 days after the incident. Will be on the look out for falls if this patient's balance is off may need to send to physical therapy but right now the accident was more related to the on even surface. Routine general medical exam ination at a health care facility 02/15/2023 Assessment & Plan (02/15/2023 11:00 AM EDT): He is doing well overall. He was able to jump up onto the examining bench swiftly with good balance. That was quite remarkable and then come off of it with just as much ease. He has no issue with falls, he is living with his together, he is able to take care of all of his ADLs no issues. As such we can see him in 6 months. His A1c at 6.4% was very good so we only need to see him twice yearly. Continue the metformin as is. Chronic orthostatic hypotension 11/17/2022 Assessment & Plan (11/17/2022 3:47 PM EST): His symptoms are typical of chronic orthostatic hypotension particularly when he stands up he gets dizzy and then he walks he drops his blood pressure a bit more and he gets very dizzy. His symptoms get worse in the summer when his volume depletion is much more. Will recommend that we start him on a low-dose of midodrine 2.5 mg 3 times a day and give him some compression stockings I also asked him to increase his fluid but his is with him and about that he really drinks all day anyway so he should change that to maybe drink some electrolytes We will see him after about a month of using electrolytes compression stockings and midodrine Laceration of scalp 01/12/2022 Assessment & Plan (01/12/2022 11:54 PM EDT): Laceration of the scalp completely healed now, with the patient's consent 6 sutures removed with a suture removal kit, there was slight bleeding so Band-Aid was applied at the end of the procedure. Patient can take the Band-Aid off in about 3 to 4 hours. No signs of infection, no antibiotics indicated. Vertigo 12/12/2021 Assessment & Plan (12/12/2021 11:34 AM EST): The patient's vertigo may be associated with a very mild form of benign positional vertigo. Literature given to the patient and his about the benign positional vertigo. We could refer the patient to physical therapy if patient continues to have issues. He was counseled on patient safety at home specifically how to get out of bed in a stepwise process so as not to fall over and possibly break hip. Hypoglycemia 05/13/2021 Assessment & Plan (05/13/2021 11:17 AM EDT): Episodes of hypoglycemia thought to be brought on by too strong a dose of the Metformin. We agree with Dr. Whaley to reduce the Metformin to 1000 mg in the morning and 500 in the evening. Apparently they reopened the extended release version which would be much better for him. I counseled the on time-released foods such as apples pears carrots that hold onto sugar in the stomach and release it out slowly. These low glycemic index foods that are somewhat high in sugar can be a good way to prevent hypoglycemia from occurring. I agree though that we can decrease the evening Metformin down to 500 mg. Patient will check 2 hours postprandial blood sugar. Confusion 05/13/2021 Assessment & Plan (05/13/2021 11:16 AM EDT): MRI of the brain is scheduled for , patient is at large risk for stroke so it would be good to document whether stroke is occurred and to what extent though the etiology of the confusion seems to be most likely the hypoglycemia episodes that he had. High serum ferritin 05/13/2021 Assessment & Plan (05/13/2021 11:18 AM EDT): The ferritin was very elevated previously but there is no signs of a focal point of inflammation. I advised the patient that we should check the ferritin again in 3 months and if it is still elevated then I would do a work-up to rule out hemochromatosis. For now he has been told by Dr. Whaley to stop the iron and we endorsed that recommendation as well. Allergic reaction to severe acute respiratory syndrome coronavirus 2 (SARS-CoV-2) vaccine 01/15/2021 Assessment & Plan (01/15/2021 1:20 PM EDT): This is clearly an allergic reaction to the COVID-19 vaccine mRNA type either [employer] or [employer]. As these vaccines are similar it should be noted that both types would probably make the same reaction. I told the patient that there might be a booster that is offered at some point in the latter half of the year or could be next year and that really depends on the new variants and how they respond to the vaccine and whether we can stage a great success against the virus. In any case I do not think necessarily that he would be barred from getting a new vaccine if he needed it but we should definitely document to hear that the reaction was most likely from the vaccine. The patient still has a lot of pruritus so we will call in some prednisone 20 mg p.o. twice daily x7 days. Should work in about 2 to 3 days. He can continue with Claritin or Benadryl whenever works better for the itchiness. He should stay away from the shower for about 4 days. Showers will cause itchiness through drying of the skin. He should moisturize the skin with Eucerin for example. That will help with itchiness. Pruritic rash 12/24/2020 Assessment & Plan (12/24/2020 11:15 AM EST): Unclear etiology of the rash, treat empirically with triamcinolone daily 0.1% applied to forearms and lower back. Scale back washing and showering to every other day since that will dry out the skin. Apply only Dove soap, no other detergents. Follow-up in 3 weeks along with the lab work. Chronic bronchitis 12/24/2020 Assessment & Plan (08/17/2022 11:24 AM EDT): Trelegy for chronic bronchitis, chronic cough so that patient can get more sleep at night will prescribe some Robitussin-AC take 10 mL nightly preventatively. Follow-up with ears nose throat regarding postnasal drip. Assessment & Plan (12/24/2020 11:16 AM EST): Patient has an albuterol inhaler and Anoro Ellipta for COPD. Patient had quit smoking already remotely but COPD persists and there could be some involvement of the agent orange that he was discussing previously from [place] that may have contributed to his chronic lung disease. Today he sounded a little bit rhonchorous but not worrisome enough to order chest x-ray or require further treatments. When I see him in 3 weeks I will approach him again on his COPD. We will make sure that he is not on any redundant products. Abnormal CT scan 04/10/2019 Assessment & Plan (04/15/2020 11:57 AM EDT): This patient has significant emphysema by his CT scan Bronchiectasis without complication 04/10/2019 Assessment & Plan (04/20/2022 2:36 PM EDT): Patient appears to have stable lung exam, no signs of COPD exacerbation, will continue to follow in 4 months. Weight loss 02/01/2019 Chronic cough 01/20/2019 Assessment & Plan (09/03/2020 8:50 AM EST): He is being followed by Dr. 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 A1c at 6.4% within target range. Assessment & Plan (08/17/2022 11:25 AM EDT): Diabetes is in very good condition, continue metformin, repeat A1c in 6 months prior to wellness visit. Assessment & Plan (04/20/2022 2:39 PM EDT): Spoke with the patient about checking out his feet every night to look for any injuries. Infections. He did not have any infections no calluses but he did have a flareup of the. We would invite him to see a vascular technologist if he wishes we can see him back in 4 months for wellness visit with prior labs. So diabetic marker went from 6.8 down to 6.4% regimen metformin. Assessment & Plan (12/12/2021 11:33 AM EST): Diabetes reassessed today and we should follow-up with hemoglobin A1c before the visit in 4 months. Goal is A1c at 6.5% but we can tolerate up to 7.5 given his age. Went over diabetic diet regarding fruits vegetables and avoidance or at least minimalization of grains like pasta and bread. Assessment & Plan (08/12/2021 5:15 PM EDT): I prx-mohgslg-jwcuqneau type 2 diabetes treated with Metformin changed to extended release form but this caused him constipation. Now A1c coming in at 6.1%, patient can continue Metformin but we will switch him back to immediate release which he tolerates much better and will be 500 mg p.o. twice daily. If he is getting diarrhea we can dial it back to 500 mg with biggest meal of the day. Otherwise no change to antidiabetic treatment. Encouraged to continue diet as before. We will follow-up in November for diabetes. Assessment & Plan (01/15/2021 1:20 PM EDT): Diabetes appears to be well controlled. I can see him back in 4 months for follow-up regarding his diabetes. Assessment & Plan (12/24/2020 11:17 AM EST): We will check A1c today and then I will discussed the results with him in 3 weeks on follow-up visit. He will continue with the Metformin as he has been taking for many years. Assessment & Plan (04/15/2020 11:57 AM EDT): Hemoglobin A1c should be less than 7 Hyperlipidemia 09/28/2018 Assessment & Plan (08/17/2022 11:25 AM EDT): Lipid profile last assessment in target range, will repeat in 6 months. Continue statin therapy, check liver enzymes. Assessment & Plan (04/20/2022 2:37 PM EDT): Excellent lipid coverage with atorvastatin at 80 mg and no elevation or myalgias. Continue as is. Continue aspirin 81 mg. Assessment & Plan (12/12/2021 11:32 AM EST): Dyslipidemia will be reassessed today continue statin therapy with Lipitor 80 mg for coronary artery disease. Goal is to get the LDL at or below 75 mg/dL. A low-fat diet reinforced. Assessment & Plan (08/12/2021 5:16 PM EDT): Review of lipids from previous months shows very good control with atorvastatin 80 mg. We can maintain on the atorvastatin and recheck lipid profile in November. Continue low-fat diet. Assessment & Plan (12/24/2020 11:17 AM EST): With history of coronary artery disease we like to keep the LDL below 75 and I will follow up with the patient on this condition obtaining the lab today and discussing with him in 3 weeks. Assessment & Plan (09/03/2020 8:50 AM EST): He is on high intensity statin therapy with good control of his LDL Assessment & Plan (04/15/2020 11:57 AM EDT): I am going to order him a baseline lipid profile LDL should be less than 70 mg/dL I will adjust the statin dose according to the number that we received Benign essential hypertension 09/28/2018 Assessment & Plan (11/17/2022 3:48 PM EST): He does have hypertension particularly when he lies down his blood pressure is high and that worries me because the treatment would be difficult for orthostatic hypotension but he should continue his lisinopril and in future we will increase his lisinopril once his orthostatic hypotension is corrected Assessment & Plan (08/17/2022 11:24 AM EDT): My blood pressure well controlled continue antihypertensives as such, the most recent Chem-7 showing good electrolytes kidney function. Assessment & Plan (04/20/2022 2:35 PM EDT): Hypertension well controlled with current listed antihypertensives. Denies side effects No change to dosing. Low Sodium diet reinforced. Continue to monitor condition. Assessment & Plan (12/12/2021 11:31 AM EST): Blood pressure appears to be within normal range, we can continue the Toprol as it is prescribed. No signs of orthostatic symptoms on exam. Ideally he would be on a small dose of lisinopril. We will check microalbumin urine the next time we see him and consider starting it if positive. Assessment & Plan (08/12/2021 5:15 PM EDT): Hypertension well controlled with current listed antihypertensives. Denies side effects No change to dosing. Low Sodium diet reinforced. Continue to monitor condition. Assessment & Plan (01/15/2021 1:21 PM EDT): Electrolytes kidney function were good and blood pressure well controlled here, I would not make any changes to the antihypertensives, low-sodium diet reinforced, follow-up in 4 months. Assessment & Plan (12/24/2020 11:18 AM EST): JulyContinue losartan and assess kidney function today along with microalbumin. Continue metoprolol as well 50 mg. 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 But at this point he has no symptoms of chest pain at all we will wait to see the effects of treatment of orthostatic hypotension before we do a stress test echocardiogram is scheduled and we will see if there is any LV wall motion through the Assessment & Plan (08/17/2022 11:23 AM EDT): Denied any chest pain, angina stable with the nitroglycerin as prescribed. Continue current management, continue statin therapy. Continue aspirin 81 mg. Assessment & Plan (01/15/2021 1:22 PM EDT): Dyslipidemia in the setting of type 2 diabetes and CAD with the goal of getting the LDL less than 75 mg/dL. This goal is certainly achieved with an LDL below 40 mg/dL and the cardiac index driven below the lower reference range. We can maintain the Lipitor at full-strength 80 mg which she is tolerating quite well. Liver enzymes were within normal limits, we can follow-up later on in the year with a repeat lipid profile. Assessment & Plan (09/03/2020 8:50 AM EST): Asymptomatic at the present time with a normal EF Assessment & Plan (04/15/2020 11:56 AM EDT): This patient's last PCI was 5 years ago rendering him symptom-free I am going to order him an ECG and an echocardiogram I will see him thereafter in follow-up. Resolved Problems Problem Noted Date Diagnosed Date Resolved Date Cerumen impaction 11/18/2018 04/10/2019 Encounters Date Type Department Care Team Description 06/17/2025 Refill [facility] [address], [address] [place] [address] Slava Ruiz MD Medication Refill 04/26/2025 11:30 AM EDT Office Visit [facility] [address], [address] [place] [address] Slava Ruiz MD Chronic obstructive pulmonary disease, unspecified COPD type (Primary Dx); Bronchiectasis without complication from Last 3 Months Immunizations Immunization Administration Dates Next Due COVID-19 (Pre-08/16) Pfizer Vaccine, mRNA, PF ,12/04/2020 INFLUENZA, SPLIT VIRUS, TRIVALENT W/ PRESERVATIV E IM 07/11/2012 Pneumococcal conjugate PCV20 06/08/2023 Pneumococcal polysaccharide PPSV23 02/20/2011 Td, unspecified formulation 05/02/2003 Tdap 01/05/2022 Family History Medical History Relation Comments No Known Problems Father No Known Problems Mother Relation Status Comments Father Mother Social History Tobacco Use Types Packs/Day Years Used Date Smoking Tobacco: Former Cigarettes 1.5 28.5 0 04/10/1958 - 09/28/1986 Smokeless Tobacco: Never Tobacco Cessation:Counseling Given: Not Answered Alcohol Use Standard Drinks/Week Comments Not Currently 0 (1 standard drink = 0.6 oz pur e alcohol) Education Answer Date Recorded Are you interested in more education? Not on betito e 02/19/2023 Are you concerned about learning? Not on file 02/19/2023 No 02/19/2023 No 02/19/2023 Digital Access Answer Date Recorded No 03/19/2023 No 03/19/2023 Reliable internet access at home? Not on file 03/19/2023 Device with a working camera? Not on file Intimate Partner Violence Answer Date R ecorded Denied Basic Needs Not on file 02/08/2023 In the past 12 months have y ou been in a relationship with a person who hurts, threatens, or tries to control you? No 02/08/2023 Worried food would run out Not on file 02/08 In the past 12 months have y ou been in a relationship with a person who hurts, threatens, or tries to control you? No 02/08/2023 Sex and Gender Information Value Date Recorded Sex Assigned at Male 01/05/2022 10:10 AM EDT Legal Sex Male 3:29 PM EDT Gender Identity Male 01/05/2022 10:10 AM EDT Sexual Orientation Not on file Last Filed Vital Signs Vital Sign Reading Time Taken Comments Blood Pressure 128/62 04/26/2025 12:08 PM EDT Pulse 82 04/26/2025 12:08 PM EDT Temperature 37 C (98.6 F) 07/07/2023 2:37 PM EDT Respiratory Rate 22 08/17/2022 10:25 AM EDT Oxygen Saturation 94% 04/26/2025 12:08 PM EDT Inhaled Oxygen Concentration - - Weight 64.4 kg (142 lb) 02/02/2024 11:06 AM EDT Height 166.4 cm (5' 5.51 ) 04/26/2025 12:08 PM E DT Body Mass Index 23.26 02/02/2024 11:06 AM EDT Plan of Treatment Upcoming Encounters Date Type Department Care Team (Late st Contact Info) Description 08/22/2025 11:15 AM EDT Office Visit [facility] [address] [place] [address] [address], [address] [place] [address] Slava Ruiz MD [address] [facility], [address] [place] [address] [email or web address] Health Maintenance Due Date Last Done Comments HEPATITIS C SCREENING 1963 ZOSTER VACCINES (1 of 2) 1995 RSV VACCINE (1 - 1-dose 75+ series) 2020 URINE MICROALBUMIN/CREATININE RATIO 07/20/2023 07/20/2022, 04/11/2021 DEPRESSION SCREENING 02/09/2024 02/08/2023 COVID-19 VACCINE ( season) 2024 12/25/2020, 12/04/2020 CREATININE LEVEL 06/29/2024 06/29/2023, , 02/08/2023, Additional history exists HEMOGLOBIN A1C 01/23/2025 07/25/2024, 09/0 11/2022, 02/08/2023, Additional history exists DIABETIC EYE EXAM 10/03/2025 10/03/2024, , 10/03/2019 BLOOD PRESSURE 10/27/2025 04/26/2025 Adult Td,Tdap Booster 01/06/2032 01/05/2022, 003 PNEUMOCOCCAL VACCINES (50+ years) Completed 06/08/2023, 02/20/2011 SMOKING STATUS SCREENING (Once After 26 Yrs) Completed 01/18/2025 HEPATITIS A VACCINES Aged Out No long er eligible based on patient's age to complete this topic HIB VACCINES Aged Out No longer eligi ble based on patient's age to complete this topic MENINGOCOCCAL VACCINES (ACWY) Aged Out No longer eligible based on patient's age to complete this topic MENINGOCOCCAL VACCINES (B) Aged Out N o longer eligible based on patient's age to complete this topic Medical Devices Not on file Procedures Procedure Name Priority Date/Time Associated Diagnosis Comments OUTSIDE SERUM CREATININE LEVEL Routine 06/29/2023 OUTSIDE HEMOGLOBIN A1C Routine 06/26/2023 MICROALBUMIN/CREATIN INE RATIO, RANDOM URINE Routine 07/20/2022 9:09 AM EDT Type 2 diabetes mellitus without complication, without long-term current use of insulin DIABETES EYE EXAM FOR RESULT ENTRY ONLY Routine 10/08/2020 from Last 3 Months or Most Recently Relevant to Health Maintenance Results * Outside Serum Creatinine Level (06/29/2023) Creatinine, serum - External 0.9 0.8 - 1.3 mg/dL Result [facility] Historical Provider LAB BLOOD ORDERABLES Kaur l Result * Outside HbA1c (06/26/2023) Hemoglobin A1c - External 6.4 % [facility] Provider LAB BLOOD ORDERABLES Kaur l Result * (ABNORMAL) Microalbumin/creatinine ratio, random urine (07/20/2022 9:09 AM EDT) URINE MICROALBUMIN 4.7(H) 0 - 2.3 mg/dL [facility] URINE CREATININE 147 mg/dL [facility] MICROALB/CRE RATIO 32.0(H) 0 - 20 mg/g Cre [facility] Urine (Urine) 07/20/2022 9:0 9 AM EDT 07/20/2022 9:16 AM EDT Prakash Bower MD URINE ORDERABLES Final Result [facility] [address] [place] [address] * DIABETES EYE EXAM FOR RESULT ENTRY ONLY (10/08/2020) EYE EXAM no retinopathy Result [facility] Historical Provider HEALTH MAINTENANCE Final Result from Last 3 Months or Most Recently Relevant to Health Maintenance Insurance [employer] [place] [employer] [place] [employer] [place] [employer] [place] [employer] [place] [employer] [place] [employer] [place] Care Teams Church Organist Relationship Specialty Start Date End Date Ondina Ferreira MD [address] [place] [address] PCP - General 10/06/23 Jair Poe MD [address] [place] [address] Drive [address] [place] [address] Breaker Engineer Cardiology 09/28/18 Kamari Carter MD [address] [place] [address] [place] [address] Ophthalmology 01/13/22 Additional Source Comments The information contained in this document represents components of the legal health record. It is not the complete legal health record.[facility]
--- OUTSIDE RECORDS SUMMARY | 2025-06-20 13:09 | XMS_ITS | Encounter Summary ---
Author Organization [facility] Address [address] [place] [address] [place] [address] Phone Care Team Providers Care Manager Concrete Name Role Phone Jair Poe MD Unavailable [phone] Kamari Carter MD Unavailable [phone] Ondina Ferreira MD Primary Care Provider [phone] Reason for Visit * Reason Comments Medication Refill Encounter Details Date Type Department Care Team (Late st Contact Info) Description 06/17/2025 Refill [facility] [address] [place] [address] 3rd Floor, [address] [place] [address] Slava Ruiz MD [address] [facility], [address] [place] [address] [email or web address] Medication Refill Social History Tobacco Use Types Packs/Day Years [...] on file documented as of this encounter Progress Notes * Libra Quinn MA - 06/18/2025 8:45 AM EDT Rx reviewed documented in this encounter Plan of Treatment Upcoming Encounters Date Type Department Care Team (Late st Contact Info) Description 08/22/2025 11:15 AM EDT Office Visit [facility] [address] [place] [address], [address] [place] [address] Slava Ruiz MD [address] [place] [address] [email or web address] documented as of this encounter Visit Diagnoses Diagnosis Medication refill Issue of repeat prescriptions documented in this encounter Additional Health Concerns Assessment Noted Time PHQ-2 Depression Total Score: 1 02/09/20 23 1:32 PM EDT documented as of this encounter Care Teams Manager Concrete Relationship Specialty Start Date End Date Ondina Ferreira MD [address] [place] [address] PCP - General 10/06/23 Jair Poe MD [address] [place] [address] [place] [address] Wrapper And Preserver Cardiology 09/28/18 Kamari Carter MD [address] [place] [address] Ophthalmology 01/13/22 documented as of this encounter Additional Source Comments The information contained in this document represents components of the legal health record. It is not the complete legal health record.[facility]
--- OUTSIDE RECORDS SUMMARY | 2025-06-20 13:09 | XMS_ITS | Encounter Summary ---
Author Organization [facility] Address [address] [facility] [address] [place] [address] Phone Care Team Providers Care It Consulting Manager Name Role Phone Sal Everett MD Primary Care Provider [phone] Jair Poe MD Unavailable [phone] Prakash Bower MD Primary Care Provider [phone] Kamari Carter MD Unavailable [phone] Ondina Ferreira MD Primary Care Provider [phone] Encounter Details Date Type Department Care Team (Latest Contact Info) Description 04/10/2019 Transcribe Orders [facility] [address] [place] [address] Slava Ruiz MD [address] [facility], [address] [place], [place] [id number] [email or web address] Bronchiectasis, uncomplicated (Primary Dx) Social History Tobacco Use Types [...] Description 08/22/2025 11:15 AM EDT Office Visit [facility] [address] [place] [address] 3rd Floor, [address] [place] [address] Slava Ruiz MD [address] [facility], [address] [place] [address] [email or web address] documented as of this encounter Results * Anti-Neutrophil Cytoplasmic Antibody (ANCA) (04/10/2019 8:49 AM EDT) C-ANCA Negative Negative [facility] [address] P-ANCA Negative Negative [facility] Comment: (NOTE) Negative for cANCA and pANCA patterns by immunofluorescence. ADDITIONAL INFORMATION This test was developed and its performance characteristics determined by [facility] in a manner consistent with CLIA requirements. This test has not been cleared or approved by the U.S. Food and Drug Administration. Blood 04/10/2019 8:49 AM EDT 04/10/2019 8:58 AM EDT us Slava Ruiz MD LAB BLOOD ORDERABLES Final Res ult [facility] [address] [place] [address] * Immunoglobulin M (04/10/2019 8:49 AM EDT) IMMUNOGLOBULIN M 57 40 - 230 mg/dL [facility] Blood 04/10/2019 8:49 AM EDT 04/10/2019 8:57 AM EDT us Slava Ruiz MD LAB BLOOD ORDERABLES Final Res ult [address] [address] * Immunoglobulin E, total (04/10/2019 8:49 AM EDT) IGE 47.2 <=214 kU/L [facility] Blood 04/10/2019 8:49 AM EDT 04/10/2019 8:58 AM EDT Slava Ruiz MD LAB BLOOD ORDERABLES Final Res ult Performing Organization Address [facility]/ZIP Co de Phone Number [facility] [address] [place] [address] * Immunoglobulin A (04/10/2019 8:49 AM EDT) IgA 292 70 - 400 mg/dL [facility] Blood 04/10/2019 8:49 AM EDT 04/10/2019 8:57 AM EDT Slava Ruiz MD LAB BLOOD ORDERABLES Final Res ult Performing Organization Address [facility] Co de Phone Number [address] [address] * (ABNORMAL) IgG subclasses (04/10/2019 8:49 AM EDT) IGG 1 805 341 - 894 mg/dL [facility]PATH [address] IGG 2 244 171 - 632 mg/dl [facility]PATH [address] IGG 3 172.0(H) 18.4 - 106.0 mg/dl [facility]PATH [address] IGG 4 20.0 2.4 - 121.0 mg/dl [facility]PATH [address] TOTAL IGG 1,290 767 - 1,590 mg/dl [facility]PATH [address] Blood 04/10/2019 8:49 AM EDT 04/10/2019 8:58 AM EDT us Slava Ruiz MD LAB BLOOD ORDERABLES Final Res ult [facility] [address] [place] [address] * Rheumatoid factor (04/10/2019 8:49 AM EDT) RHEUMATOID FACTOR <10.0 0.0 - 14.0 IU/ml [facility] Blood 04/10/2019 8:49 AM EDT 04/10/2019 8:57 AM EDT us Slava Ruiz MD LAB BLOOD ORDERABLES Final Res ult Performing Organization Address [facility] Co de Phone Number [address] [address] * (ABNORMAL) Antinuclear antibody (STEFFI) (04/10/2019 8:49 AM EDT) STEFFI SCREEN ON HEP 2 Positive(A ) Negative [facility] Comment:An STEFFI Titer has bee n reflexed. The results will follow. Blood 04/10/2019 8:49 AM EDT 04/10/2019 8:57 AM EDT us Slava Ruiz MD LAB BLOOD ORDERABLES Final Res ult Performing Organization Address [facility] Co de Phone Number [address] [address] documented in this encounter Visit Diagnoses Diagnosis Bronchiectasis, uncomplicated- Primary documented in this encounter Additional Health Concerns Assessment Noted Time PHQ-2 Depression Total Score: 0 01/05/20 19 8:46 AM EDT documented as of this encounter Care Teams It Consulting Manager Relationship Specialty Start Date End Date Sal Everett MD [email or web address] PCP - General Internal Medicine 08/02/1811/25 Prakash Bower MD [address] [place] [address] [email or web address] PCP - General Internal Medicine 11/26/20 08/31/23 Ondina Ferreira MD [address] [place] [address] PCP - General 10/06/23 Jair Poe MD [address] [place] [address] [place] [address] Slicing Machine Feeder Cardiology 09/28/18 Kamari Carter MD [address] [place] [address] Ophthalmology 01/13/22 documented as of this encounter Additional Source Comments The information contained in this document represents components of the legal health record. It is not the complete legal health record.[facility]
--- OUTSIDE RECORDS SUMMARY | 2025-06-20 13:09 | XMS_ITS | Encounter Summary ---
Author Organization [facility] Address [address] [place] [address] [address] [place] [address] Phone Care Team Providers Care Supervisor Fertilizer Name Role Phone Jair Poe MD Unavailable [phone] Prakash Bower MD Primary Care Provider [phone] Kamari Carter MD Unavailable [phone] Ondina Ferreira MD Primary Care Provider [phone] Encounter Details Date Type Department Care Team (Late st Contact Info) Description 08/27/2022 Procedure Pass [facility], Ct Scan - [address] [id number] Social History Tobacco Use Types Packs/Day Years [...] Description 08/22/2025 11:15 AM EDT Office Visit [facility] [address] [place] [address] [address]rd Floor, [address] [place] [address] Slava Ruiz MD [address] [facility], [address] [place] [address] [email or web address] documented as of this encounter Visit Diagnoses Not on filedocumented in this encounter Additional Health Concerns Assessment Noted Time PHQ-2 Depression Total Score: 0 01/13/20 22 8:13 AM EDT documented as of this encounter Care Teams Supervisor Fertilizer Relationship Specialty Start Date End Date Prakash Bower MD [address] [place] [address] [email or web address] PCP - General Internal Medicine 11/26/20 08/31/23 Ondina Ferreira MD [address] [place] [address] PCP - General 10/06/23 Jair Poe MD [address] [place] [address] [address] [place] [address] Crop Or Livestock Tenant Farmer Cardiology 09/28/18 Kamari Carter MD [address] [place] [address] Ophthalmology 01/13/22 documented as of this encounter Additional Source Comments The information contained in this document represents components of the legal health record. It is not the complete legal health record.[facility]
== END 2025-06-20 13:27 | disposition home or self-care (01) ==
LOC: HO.HSM 12:44
PROVIDERS: PCP Internal Medicine; Referring Provider Internal Medicine; Visit Provider Psychiatry & Neurology Neurology
DX: G31.83 Neurocognitive disorder with Lewy bodies (principal); F02.82 Dementia in other diseases classified elsewhere, unspecified severity, with psychotic disturbance; G45.9 Transient cerebral ischemic attack, unspecified; R44.3 Hallucinations, unspecified
CPT/HCPCS: 99215

== ENCOUNTER → 2025-06-20 12:44 | Outpatient (BNVA) | payer MEDICARE, SELFPAY | PROVIDERS: PCP Internal Medicine; Referring Provider Internal Medicine; Visit Provider Psychiatry & Neurology Neurology | DX: R44.3 Hallucinations, unspecified (principal); G31.83 Neurocognitive disorder with Lewy bodies; G45.9 Transient cerebral ischemic attack, unspecified; G31.84 Mild cognitive impairment of uncertain or unknown etiology | CPT/HCPCS: 99212 ==

== ENCOUNTER 2025-09-12 11:27 | Outpatient (AMB) | payer MEDICARE, SELFPAY ==
--- OUTSIDE RECORDS SUMMARY | 2024-04-18 08:30 | XMS_ITS ---
Author Organization [facility] Address [address] [place] [id number] Care Team Providers Care Asset Protection Detective Name Role Phone Ondina Ferreira Primary Care Provider Unavailabl Jerome Loya Unavailable [phone] Encounters Encounter Location Date Provider Diagnosis [address] [address] 04/18/2024 Jerome Nava Plan Of Treatment Next Appt Details Provider Name:Jerome Nava , 09/14/2025 10:30:00 AM, [address] [place] [address], [id number], Progress Notes * Gamal GOMEZ MDOB:[birth year] (80 yo M)Acc No.[id number]:04/18/2024 Progress Note Patient: Marie Gamal BOSE Provider: Luisito Nava DPM :1945 A ge:78 Y S ex:Male Date:04/18/2024 Address:[address] [place], [place] [id number] Pcp:Ondina Ferreira Subjective: * Chief Complaints: * * Medical History: Objective: * Vitals: Assessment: Plan: * Treatment: * Images: * The named appointment provid er may or may not be the originator of this progress note, and it is not deemed complete until electronically signed by the appointment provider. Sign off status: Pending * Provider: Luisito Nava DPM Date: 0 04/18/2024 Generated for Segun johansen/Jamil/Yu on: 1 11/12/2024 10:35 PM EST
--- OUTSIDE RECORDS SUMMARY | 2024-06-19 04:45 | XMS_ITS ---
Author Organization [facility] Address [address] [place] [id number] Care Team Providers Care Food Processor Name Role Phone Ondina Ferreira Primary Care Provider Unavailabl Jerome Loya Unavailable [phone] Encounters Encounter Location Date Provider Diagnosis [address] [address] 06/19/2024 Jerome Nava Plan Of Treatment Next Appt Details Provider Name:Jerome Nava , 09/14/2025 10:30:00 AM, [address] [place], [address], Progress Notes * Gamal GOMEZ MDOB:[birth year] (80 yo M)Acc No.[id number]:06/19/2024 Progress Note Patient: Marie AUREABRICEGamal PACHECO Provider: Luisito Nava DPM :1945 A ge:78 Y S ex:Male Date:06/19/2024 Address:[address] [place] [address], [id number] Pcp:Ondina Ferreira Subjective: * Chief Complaints: * * Medical History: Objective: * Vitals: Assessment: Plan: * Treatment: * Images: * The named appointment provid er may or may not be the originator of this progress note, and it is not deemed complete until electronically signed by the appointment provider. Sign off status: Pending * Provider: Luisito Nava DPM Date: 0 06/19/2024 Generated for Segun johansen/Jamil/Andreaitting on: 1 11/12/2024 10:35 PM EST
--- OUTSIDE RECORDS SUMMARY | 2024-10-17 04:30 | XMS_ITS ---
Author Organization [facility] Address [address] [place] [address] Care Team Providers Care Wharf Builder Name Role Phone Ondina Ferreira Primary Care Provider Unavailabl Jerome Loya Unavailable [phone] Encounters Encounter Location Date Provider Diagnosis [address] [address] 10/17/2024 Jerome Nava Plan Of Treatment Next Appt Details Provider Name:Jerome Nava , 09/14/2025 10:30:00 AM, [address] [place], [address], Progress Notes * Gamal GOMEZ MDOB:[birth year] (80 yo M)Acc No.[id number]:10/17/2024 Progress Note Patient: Marie Gamal BOSE Provider: Luisito Nava DPM :1945 A ge:79 Y S ex:Male Date:10/17/2024 Address:[address] [place], [place] [id number] Pcp:Ondina Ferreira Subjective: * Chief Complaints: * * Medical History: Objective: * Vitals: Assessment: Plan: * Treatment: * Images: * The named appointment provid er may or may not be the originator of this progress note, and it is not deemed complete until electronically signed by the appointment provider. Sign off status: Pending * Provider: Luisito Nava DPM Date: 12/18/2023 Generated for Segun johansen/Jamil/Andreaitting on: 11/12/2024 10:34 PM EST
--- NOTE | 2025-09-12 11:24 | MHC.OFFVIS ---
Intake Visit Reasons: new concern Allergies egg Allergy (Verified 10/17/24 15:06) Unknown minocycline Allergy (Verified 10/17/24 15:06) Unknown Sulfa (Sulfonamide Antibiotics) Allergy (Verified 10/17/24 15:06) Unknown Medication List - Last Reconciled 09/12/25 by Luisa Garcia MD albuterol sulfate 90 mcg/actuation 2 puffs inhalation Q4-6H PRN ammonium lactate 12% 1 appl topical BID PRN aspirin 81 mg PO DAILY atorvastatin 80 mg PO BEDTIME cetirizine (Zyrtec) 10 mg PO DAILY erythromycin 250 mg PO .every other day ferrous sulfate 325 mg PO DAILY metformin 500 mg PO BID HPI Comments Details: More forgetful, and at times not understanding. More visual hallucinations constantly. Generally worse in all functioning. Gets sun-downing with agitation and confusion. Uses a w/c in the house and occasionally using a walker with 1 assist. Lot of sleep behavior problems. Gets agitated easily especially for Doctor visits. He sleeps all day and gets 2-3 hrs sleep at night. In January 2025 , he had an episode of slurring , confusion and right facial droop. It lasted < 2 minutes. He had another minor spell again with some twitching. Gets arms nd leg twitches. BP has been low and he is off BP meds for 6 months. Now getting these brief spells of not being there and twitching for 10-15 secs an done longer spell for 35 secs last week. ? Memory is worsening. More confusion since the fall on 10/17/24 and was in hospital X 2 . Seeing animals , children etc. He is doing well on melatonin. ?He is living at home and lives with his and a caregiver who is with him all day. He gets visual hallucinations where he sees animals in the house, bad kids who bother him. Calling his by his mother's name and also has some animated sleep with abnormal behaviors has gone on for many years. He also sleeps excessively. He takes naps during the day. Generally eats well. No tremors are noted. [facility] Medical History (Updated 09/12/25 @ 11:53 by Luisa Garcia MD) TIA (transient ischemic attack) Hallucination RBD (REM behavioral disorder) MCI (mild cognitive impairment) Social History Household Members: Spouse Housing: House Do you presently have visiting nurse or other home services: Yes (NET APPLICATION ARCHITECT) Alcohol intake: never Patient Tobacco Use Status: Former Tobacco user Advance Directives Date on File: 05/26/23 Review of Systems Const Details: Sleep:? Difficulty getting to sleepdenies.? Difficulty maintaining sleepadmits.? Urge to move legsadmits.? Teeth grindingdenies.? Shouting or Kicking during sleepadmits.? Abnormal behavior during sleepadmits.? Excessive sleepadmits.? Snoringdenies.? Daytime sleepinessdenies. ???General/Constitutional:? Change in appetitedenies.? Chillsdenies.? Fatigueadmits.? Feverdenies.? Weight gaindenies.? Weight lossdenies. ???Ophthalmologic:? Blurred visiondenies.? Diminished visual acuitydenies. ???ENT:? Stuffinessdenies.? Decreased hearingadmits.? Dry mouthdenies.? Ear paindenies.? Nosebleeddenies.? Ringing in the earsdenies.? Sinus paindenies.? Sore throatdenies.? Swollen glandsdenies. ???Endocrine:? Cold intolerancedenies.? Excessive thirstdenies.? Frequent urinationdenies.? Heat intoleranceadmits. ???Respiratory:? Shortness of breathadmits.? Chest paindenies.? Coughadmits. ???Breast:? Breast lumpdenies.? Nipple dischargedenies. ???Cardiovascular:? Chest pain at restdenies.? Chest pain with exertiondenies.? Claudicationdenies.? Dizzinessdenies.? Fluid accumulation in the legsdenies.? Irregular heartbeatdenies.? Palpitationsdenies. ???Gastrointestinal:? Abdominal paindenies.? Constipationdenies.? Diarrheadenies.? Difficulty swallowingdenies.? Heartburndenies.? Nauseadenies.? Rectal bleedingdenies. ???Hematology:? Easy bruisingdenies.? Prolonged bleedingdenies. ???Genitourinary:? Frequent urinationadmits.? Urgencydenies.? Incontinencedenies.? Erectile Dysfunctiondenies. ???Musculoskeletal:? Neck paindenies.? Back paindenies.? Muscle achesadmits.? Painful jointsadmits.? Sciaticadenies.? Weaknessdenies. ???Podiatric:? Difficulty walkingdenies.? Foot numbnessdenies. ???Neurologic:? Difficulty swallowingadmits.? Balance difficultyadmits.? Coordinationnormal.? Difficulty speakingdenies.? Dizzinessadmits.? Faintingdenies.? Gait abnormalitydenies.? Headachedenies.? Loss of strengthdenies.? Loss of use of extremitydenies.? Low back paindenies.? Memory lossadmits.? Seizuresdenies.? Ticsdenies.? Tingling/Numbnessadmits.? Transient loss of visiondenies.? Tremordenies. ???Psychiatric:? Anxietydenies.? Auditory/visual hallucinationsadmits.? Delusionsadmits.? Depressed mooddenies.? Stressorsdenies.? Substance abusedenies.? Suicidal thoughtsdenies. Physical Exam Neuro Other: Neurological: Abnormal neurological findings:??He is? in a wheelchair.?Mental Status:??alert and oriented X 2,?.?Cranial Nerves:??Pupils are equal, round and reactive to light. Fundoscopy shows normal disc bilaterally. External occular muscles are intact. Visual jacobo are full, no ptosis. Face is symmetrical, no facial weakness or droop. Facial sensations are normal. Tongue protrudes in midline. Palate elevates symmetrically. Shoulder shrugging is normal..?Motor Examination:??Normal muscle tone, bulk and strength,?No atrophy or fasciculations,?No drift of the extended upper extremities,?Deep tendon reflexes are 2+?,?Plantars are flexor?.?Motor Strength:?Proximal Muscles (out of 5):5Distal Muscles (out of 5):5Neck Flexors (out of 5):5Neck Extensors (out of 5):5Deltoid (out of 5):5Biceps (out of 5):5Triceps (out of 5):5Serratus Anterior (out of 5):5Wrist Extensors (out of 5):5APB (out of 5):5Finger Spread (out of 5):5Ileopsoas (out of 5):5Quadriceps (out of 5):5Hamstrings (out of 5):5Tibialis Anterior (out of 5):5Peronei (out of 5):5EDB (out of 5):5Gastrocnemius (out of 5):5Straight Leg Raising:??90 degrees.?Sensory Exam:??Normal light touch, temperature, pinprick, vibration and joint-position sensations?,?Rhomberg sign is absent.?Coordination:??no ataxia,?no titubation,?bmhqju-bo-kesl, gfqs-zlro-hlqr test and rapid alternating movements were normal.?Gait Exam:??Wheelchair.?Cerebellar Signs:??Raxnpf-nr-ofwf and dopb-kg-hini is normal,?no dysdiadochokinesia?.?Extrapyramidal System:??Minimal left thumb tremor . No rigidity with normal facial expressions,?No bradykinesia, no bradyphrenia. Normal arm swing and posture. No propulsion or retropulsion.?Speech:??Normal,?no dysphasia or dysarthria..? Mini Mental Status Exam: Level of Consciousness:??Alert.?Orientation:??Knows correct year, month, and season,?Knows correct city, and state. Knows correct location and floor.?Registration:??Able to register 3 objects.?Attention:??Serial 7's performed accurately.?Recall:??Able to recall 3 out of 3 objects.?Language:??Normal spontaneous speech, fluency, repetition,naming, comprehension, reading and writing.?Total Score:??26/30.? General Examination: GENERAL APPEARANCE:??normal,?in no acute distress.?HEAD:??normocephalic,?atraumatic.?EYES:??sclera non-icteric,?conjunctiva clear.?EARS:??auditory canal clear,?tympanic membrane intact, clear.?NOSE:??no lesions.?ORAL CAVITY:??gums normal,?mucosa moist,?no lesions.?THROAT:??clear.?NECK/THYROID:??no cervical lymphadenopathy,?thyroid normal,?neck supple, full range of motion,?no carotid bruit.?SKIN:??no rashes,?no significant birthmarks.?HEART:??S1, S2 normal,?no murmurs.?LUNGS:??clear anteriorly and posteriorly.?CHEST:??no gross rib deformity,?clear to auscultation.?BACK:??normal exam of spine.?EXTREMITIES:??no edema.?PERIPHERAL PULSES:??normal.?PSYCH:??alert, oriented,?cognitive function intact,?cooperative with exam.? 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: Code(s): G20.C - Parkinsonism, unspecified; I95.1 - Orthostatic hypotension Category: Medical (2) Lewy body dementia: Code(s): G31.83 - Neurocognitive disorder with Lewy bodies; F02.80 - Dementia in other diseases classified elsewhere, unspecified severity, without behavioral disturbance, psychotic disturbance, mood disturbance, and anxiety Category: Medical (3) TIA (transient ischemic attack): Code(s): G45.9 - Transient cerebral ischemic attack, unspecified Category: Medical (4) Hallucination: Code(s): R44.3 - Hallucinations, unspecified Category: Medical Plan Trial of Quetiapine 25mg hs for Medications: New quetiapine 25 mg PO BEDTIME 30 tabs 2RF 30 days Coding Level of Care Code Est Pt Level 4 (98226) Diagnoses 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
--- OUTSIDE RECORDS SUMMARY | 2025-09-12 22:36 | XMS_ITS | Encounter Summary ---
Author Organization [facility] Address [address] [place] [address] [address] [place] [address] Phone Care Team Providers Care Undercutter Name Role Phone Jair Poe MD Unavailable [phone] Prakash Bower MD Primary Care Provider [phone] Kamari Carter MD Unavailable [phone] Ondina Ferreira MD Primary Care Provider [phone] Encounter Details Date Type Department Care Team (Late st Contact Info) Description 10/08/2022 Procedure Pass [facility], Ct Scan - [address] [id number] Social History Tobacco Use Types Packs/Day Years [...] Upcoming Encounters Date Type Department Care Team (Latest Contact Info) Description 11/22/2025 1:15 PM EST Telemedicine - audio only [facility] [address] [place] [address] 3rd Floor, [address] [place] [address] Slava Ruiz MD [address] [facility], [address] [place] [address] [email or web address] documented as of this encounter Visit Diagnoses Not on filedocumented in this encounter Additional Health Concerns Assessment Noted Time PHQ-2 Depression Total Score: 1 02/09/20 23 1:32 PM EDT documented as of this encounter Care Teams Undercutter Relationship Specialty Start Date End Date Prakash Bower MD [address] [place] [address] PCP - General Internal Medicine 11/26/20 08/31/23 Ondina Ferreira MD [address] [place] [address] PCP - General 10/06/23 Jair Poe MD [address] [place] [address] [address] [place] [address] Hand Worker Cardiology 09/28/18 Kamari Carter MD [address] [place] [address] Ophthalmology 01/13/22 documented as of this encounter Additional Source Comments The information contained in this document represents components of the legal health record. It is not the complete legal health record.[facility]
--- OUTSIDE RECORDS SUMMARY | 2025-09-12 22:36 | XMS_ITS | Encounter Summary ---
Author Organization [facility] Address [address] [place] [address] [address] [place] [address] Phone Care Team Providers Care Custom Tailor Apprentice Name Role Phone Jair Poe MD Unavailable [phone] Prakash Bower MD Primary Care Provider [phone] Kamari Carter MD Unavailable Ondina Ferreira MD Primary Care Provider [phone] Encounter Details Date Type Department Care Team (Late st Contact Info) Description 05/01/2021 Procedure Pass [facility], [address] [id number] Social History Tobacco Use Types Packs/Day Years [...] 11/22/2025 1:15 PM EST Telemedicine - audio [facility] [address] [facility] [address], [address] [place], [place] [phone] Slava Ruiz MD [address] [facility], [address] [place] [address] [email or web address] documented as of this encounter Visit Diagnoses Not on filedocumented in this encounter Additional Health Concerns Assessment Noted Time PHQ-2 Depression Total Score: 0 12/25/19 21 10:32 AM EST documented as of this encounter Care Teams Custom Tailor Apprentice Relationship Specialty Start Date End Date Prakash Bower MD [address] [place] [address] [email or web address] PCP - General Internal Medicine 11/26/20 08/31/23 Ondina Ferreira MD [address] [place] [address] PCP - General 10/06/23 Jair Poe MD [address] [place] [address] [address] [place] [address] Radio Communications Mechanician Cardiology 09/28/18 Kamari Carter MD [address] [place] [address] Ophthalmology 01/13/22 documented as of this encounter Additional Source Comments The information contained in this document represents components of the legal health record. It is not the complete legal health record.[facility]
--- OUTSIDE RECORDS SUMMARY | 2025-09-12 22:36 | XMS_ITS | Data Portability ---
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 Cerumen impactions removed bilaterally, which patient tolerated well. TMs with stable 20% central perforations bilaterally. Audiometric testing was offered today, but patient declines [facility]. [facility], and he will return to his parole hearing officer for adjustments as needed. Recommend 6-month follow-up for repeat debridement, sooner with concerns. [email or web address] Not available 07/25/2025 13:55:55 Plan of Treatment Reminders Order Date Submit Date Provider Last Modified By Organization Details Last Modified Time Details Appointments Establish ed 15 2025 01:15P M VALENTINO REEVES PA-C Not available Not available Not available Lab None recorded. Referral None recorded. Procedures None recorded. Surgeries None recorded. Imaging None recorded. Medication Orders None recorded. Patient TargetsNo targets recorded. Patient InstructionsNo instructions recorded. Reason for Referral None Reported. Problems Name Problem SNOMED Code Status Onset Date Resolution Date Notes Provider Name and Address Organization Details Recorded Time Impacted cerumen of bilateral ears [id number] 02287 Active 2018 Impacted cerumen, bilateral ; Note: Date Diagnosed : 01/19/2019 9:16 AM (H61.23) VALENTINO REEVES PA-C [address] [address], [address] , [facility] - [facility] 5 13:56:10 Mixed conductiv e and sensorine ural hearing loss, bilateral 584008432 Active 2018 Mixed conductiv e and sensorine ural hearing loss, bilateral ; Note: Date Diagnosed : 01/19/2019 9:09 AM (H90.6) VALENTINO REEVES PA-C [address] [place] [address] [place], [address] , [facility] - [facility] 5 13:56:05 Bilateral recurrent acute serous otitis media of middle ears 71486697403 99592 Active 2018 Acute serous otitis media, recurrent , bilateral ; Note: Date Diagnosed : 01/19/2019 9:16 AM (H65.06) Not Available [facility] 4 03:18:44 Bilateral tympanic membrane central perforati on 22247436159 53089 Active 2021 Central perforati on of tympanic membrane, bilateral ; Note: Date Diagnosed : 12/02/2021 1:08 PM (H72.03) VALENTINO REEVES PA-C [address] [place] [address], [place], [address] , [facility] 5 13:46:14 Problem Notes None recorded. Procedures Surgical History Date Name Laterality Status Provider Name and Address Organization Details Recorded Time 5 Cerumen removal without microscope bilat completed VALENTINO REEVES PA-C [address] [place] [address], [place], [address], [facility] 07/25/2025 13:52:46 Imaging Results None recorded. Procedure Notes None recorded. Medical Equipment None Reported. Allergies Allergen ID Allergen Name Allergen Category Reaction Reaction Severity Criticality Documentation Date Start Date Code Code System Note Provider Name and Address Organization Details Recorded Time 468429 Substance with sulfonami de structure and antibacte rial mechanism of action (substanc e) medicatio n other Not available Not available 03/07/2024 53507 1895 SNOMED React ion: unkno wn, unspe cifie d;; Not Available [facility] 4 01:15:15 Medications Name Sig Start Date Stop Date Status Note LastModified by Organization Details LastModified Time metformin 500 mg tablet TAKE 1 TABLET BY MOUTH TWICE A DAY WITH MEALS active Not Available Not Available No t Available atorvasta tin 80 mg tablet TAKE 1 TABLET BY MOUTH 1 TIME EACH DAY. active Not Available Not Available No t Available nystatin 100,000 unit/mL oral suspensio n SWISH AND SWALLOW 5 ML BY MOUTH FOUR TIMES A DAY. active Not Available Not Available No t Available cefuroxim e axetil 250 mg tablet TAKE 1 TABLET BY MOUTH 2 TIMES A DAY 05/08 completed Not Available Not Available Not Available ipratropi um 0.5 mg-albute rol 3 mg (2.5 mg base)/3 mL nebulizat ion soln USE 3 MILLILIT ERS WITH NEBULIZE R EVERY 6 HOURS NEEDED FOR WHEEZE active Not Available Not Available No t Available trazodone 50 mg tablet TAKE 1/2 (HALF) TABLET BY MOUTH EVERY DAY AT BEDTIME. active Not Available Not Available No t Available ofloxacin 0.3 % eye drops 2018 active Medicati on ID: [id number] P rescribe d By Name: Darin mcmillan MD Brand Name: ofloxaci n Send Method: E-Prescr ibed Sub s Allowed: subs OK Speci al Instruct ion: apply 5 drops to affected ear BID x 7 days Med icationG enericNa me: ofloxaci n Not Available Not Available Not Available metoprolo l succinate ER 50 mg tablet,ex tended release 24 hr TAKE 1 TABLET BY MOUTH EVERY DAY active Not Available Not Available No t Available prednison e 20 mg tablet TAKE 2 TABLETS BY MOUTH DAILY FOR 4 DAYS active Not Available Not Available No t Available Accu-Chek Softclix Lancets USE DIRECTED TO TEST BLOOD SUGAR TWO (2) TIMES A DAY. E11.9 - REPLACES ONETOUCH active Not Available Not Available No t Available risperido ne 2 mg tablet TAKE 1/2 TABLET BY MOUTH IN THE EVENING FOR 1 WEEK THEN INCREASE TO 1 TABLET DAILY active Not Available Not Available No t Available magnesium oxide 400 mg (241.3 mg magnesium ) tablet TAKE 1 TABLET (400 MG TOTAL) BY MOUTH ONCE DAILY FOR 10 DAYS active Not Available Not Available No t Available linezolid 600 mg tablet TAKE 1 TABLET BY MOUTH EVERY 12 HOURS FOR 14 DAYS 05/08 completed Not Available Not Available Not Available OneTouch Ultra Test strips USE TO TEST BLOOD SUGAR TWO TIMES A DAY active Not Available Not Available No t Available metformin 1,000 mg tablet 2018 active Medicati on ID: [id number] D uration Value: 90 Brand Name: metformi n Send Method: E-Prescr ibed Sub s Allowed: subs OK Speci al Instruct ion: TAKE 1 TABLET BY MOUTH TWICE A DAY WITH MEALS Me dication GenericN hudson: metformi n Not Available Not Available Not Available clotrimaz ole-betam ethasone 1 %-0.05 % topical cream APPLY ONCE DAILY TO FEET active Not Available Not Available No t Available lisinopri l 5 mg tablet 2018 active Medicati on ID: [id number] D uration Value: 90 Brand Name: lisinopr il Send Method: E-Prescr ibed Sub s Allowed: subs OK Speci al Instruct ion: TAKE 1 TABLET BY MOUTH EVERY DAY Medi cationGe nericNam e: lisinopr il Not Available Not Available Not Available mupirocin 2 % topical ointment APPLY LOCALLY TWICE DAILY 05/08 completed Not Available Not Available Not Available azithromy maddy 500 mg tablet TAKE 1 TABLET BY MOUTH 3 TIMES A WEEK ON WEDNESDAY, AND WEDNESDAY active Not Available Not Available No t Available Zyrtec 10 mg capsule 2018 active Medicati on ID: [id number] B rand Name: Zyrtec S end Method: E-Prescr ibed Sub s Allowed: subs OK Medic ationGen ericName : Zyrtec Not Available Not Available Not Available Accu-Chek Guide Glucose Meter USE DIRECTED TO TEST BLOOD SUGAR TWO TIMES A DAY. E11.9 - REPLACES ONETOUCH active Not Available Not Available No t Available Vitals None Recorded Social History None recorded. Functional Status None recorded. Mental Status None recorded. Family History Nothing Reported. Medical History No medical history recorded. Past Encounters Encounter ID Performer Location Encounter Start Date Encounter Closed Date Diagnosis/Indication Diagnosis SNOMED-CT Code Diagnosis ICD10 Code Diagnosis IMO Codes Diagnosis Note [id number] VALENTINO REEVES PA-C [facility] [address] [address] 07/25/2025 12:48:19 07/25/2025 13:49:48 Bilateral tympanic membrane central perforation [id number] 782384 H72.03 Mixed cond uctive and sensorineural hearing loss, bilateral 463432388 H90.6 Impacted c erumen of bilateral ears 6305256729 731809 H61.23 Health Concerns Section Related Observation LastModified by Organization Detai ls LastModified Time None Recorded Concern Status LastModified by Organization Details LastModified Time None Recorded Advance Directives Directive None Recorded Payers Insurance Date Sequence Insurance Name Policy Number Policy Harding Covered Member ID Harding Member ID Guarantor Name 07/25/2025 1 [facility] - MEDICARE PREFERRED (MEDICARE REPLACEMENT PPO) [employer] Gamal Dominguez [id number] 1 Gamal Dominguez Notes Date Note Type Note Provider Name and Address Organization Details Recorded Time 07/25/2025 text/html ROS as noted in the HPI 79-year-old male with 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 No acute concerns today. [facility] and are working well. [facility]. No prior ear surgery. VALENTINO REEVES PA-C [address] [place] [address], [place], [address], [facility] - [facility] 07/25/2025 13:56:39
--- OUTSIDE RECORDS SUMMARY | 2025-09-12 22:36 | XMS_ITS | Encounter Summary ---
Author Organization [facility] Address [address] [place] [address] Phone Care Team Providers Care Jerker Name Role Phone Sal Everett MD Primary Care Provider [phone] Jair Poe MD Unavailable [phone] Prakash Bower MD Primary Care Provider [phone] Kamari Carter MD Unavailable [phone] Ondina Ferreira MD Primary Care Provider [phone] Encounter Details Date Type Department Care Team (Latest Contact Info) Description 03/08/2019 Transcribe Orders [address] [place] [address] Slava Ruiz MD [address] [facility], [address] [place], [place] [id number] [email or web address] Bronchiectasis without complication (Primary Dx) [...] 1:15 PM EST Telemedicine - audio only [facility] [address], [address] [place] [address] Slava Ruiz MD [address] [facility], [address] [place] [address] [email or web address] documented as of this encounter Results * Fungal culture (03/08/2019 8:30 AM EDT) Special Requests None 03/08/2019 12:37 PM EDT [facility] GRAM STAIN No Yeast or Fungal elements seen 03/10/2019 8:18 AM EDT [facility] Fungal Culture Only NO FUNGUS OR YEAST ISOLATED AFTER 26 DAYS 04/04/2019 8:00 AM EDT [facility] Other (Sputum) 03/08/2019 8: 30 AM EDT 03/08/2019 12:40 PM EDT Comment:SPUTUM us Slava Ruiz MD LAB MICROBIOLOGY CULTURE ORDER ANITRA Final Result [facility] [address] [place] [address] * (ABNORMAL) Respiratory culture/smear (03/08/2019 8:30 AM EDT) Specimen Source/ Description SPUTUM SPUTUM SPUTUM [facility] Special Requests None [facility] GRAM STAIN Rare WBC'S , Moderate GRAM POSITIVE COCCI , Gram stain evaluation indicated >10 squamous epithelial cells per lower power field. Specimen is contaminated with saliva. Please submit a new specimen if clinically indicated. [facility] Culture/Test MIXED ORGANISMS RESEMBLING OROPHARYNGEAL JOVITA(A) [facility] Report Status 03/10/2019 FINAL [facility] Other (Sputum) 03/08/2019 8: 30 AM EDT 03/08/2019 12:40 PM EDT us Slava Ruiz MD LAB MICROBIOLOGY CULTURE ORDER ANITRA Final Result Performing Organization Address City/[facility]/ZIP Co de Phone Number [address] [address] * Mycobacterial culture/smear (03/08/2019 8:30 AM EDT) Special Requests None 03/08/20 12:37 PM EDT [facility] SMEAR NO ACID FAST BACILLI OBSERVED 03/11/2019 2:16 PM EDT [facility] Mycobacterial Culture NO AFB ISOLATED AFTER 8 WEEKS 05/04/2019 1:58 PM EDT [facility] Other (Sputum) 03/08/2019 8: 30 AM EDT 03/08/2019 12:40 PM EDT Comment:SPUTUM Slava Ruiz MD LAB MICROBIOLOGY CULTURE ORDER ANITRA Final Result Performing Organization Address [facility] Co de Phone Number [address] [address] documented in this encounter Visit Diagnoses Diagnosis Bronchiectasis without complication- Primary documented in this encounter Additional Health Concerns Assessment Noted Time PHQ-2 Depression Total Score: 0 01/05/20 19 8:46 AM EDT documented as of this encounter Care Teams Jerker Relationship Specialty Start Date End Date Sal Everett MD [email or web address] PCP - General Internal Medicine 08/02/1811/25 Prakash Bower MD [address] [place] [address] [email or web address] PCP - General Internal Medicine 11/26/20 08/31/23 Ondina Ferreira MD [address] [place] [address] PCP - General 10/06/23 Jair Poe MD [address] [place] [address] Drive [address] [place] [address] Employee Service Officer Cardiology 09/28/18 Kamari Carter MD [address] [place] [address] Ophthalmology 01/13/22 documented as of this encounter Additional Source Comments The information contained in this document represents components of the legal health record. It is not the complete legal health record.[facility]
--- OUTSIDE RECORDS SUMMARY | 2025-09-12 22:36 | XMS_ITS | Continuity of Care Document ---
Author Organization [place] - [facility], [facility] Address [address] [place] [address] Care Team Providers Care Rn Employee Health Name Role Phone NIGEL SHAW Referring Provider [phone] Assessment Encounter Date Assessment Date Assessment LastModified by Organization Details LastModified Time 07/25/2025 07/25/2025 79-year-old male with history of bilateral TM perforations status post tube extrusion presents with BILLING MANAGER for cerumen removal. Cerumen impactions removed bilaterally, which patient tolerated well. TMs with stable 20% central perforations bilaterally. Audiometric testing was offered today, but patient declines as [facility]. [facility], and he will return to his piccoloist for adjustments as needed. Recommend 6-month follow-up for repeat debridement, sooner with concerns. [email or web address] Not available 07/25/2025 13:55:55 Plan of Treatment Reminders Order Date Submit Date Provider Last Modified By Organization Details Last Modified Time Details Appointments Establish ed 15 2025 01:15P Giles REEVES PA-C Not available Not available Not [...] Recorded Time Impacted cerumen of bilateral ears [id number] 74479 Active 2018 Impacted cerumen, bilateral ; Note: Date Diagnosed : 01/19/2019 9:16 AM (H61.23) VALENTINO REEVES PA-C [address] [facility] [address], [place], [address] , [facility] - [facility] 5 13:56:10 Mixed conductiv e and sensorine ural hearing loss, bilateral 502964415 Active 2018 Mixed conductiv e and sensorine ural hearing loss, bilateral ; Note: Date Diagnosed : 01/19/2019 9:09 AM (H90.6) VALENTNIO REEVES PA-C [address] [place] [address],[address], [address] , [facility] - [facility] 5 13:56:05 Bilateral recurrent acute serous otitis media of middle ears 56163477163 28251 Active 2018 Acute serous otitis media, recurrent , bilateral ; Note: Date Diagnosed : 01/19/2019 9:16 AM (H65.06) Not Available [facility] 4 03:18:44 Bilateral tympanic membrane central perforati on 17153073496 67556 Active 2021 Central perforati on of tympanic membrane, bilateral ; Note: Date Diagnosed : 12/02/2021 1:08 PM (H72.03) VALENTINO REEVES PA-C [address] [place] [address],[address] [place] [address], [place], [address] , [facility] 5 13:46:14 Problem Notes None recorded. Procedures Surgical History Date Name Laterality Status Provider Name and Address Organization Details Recorded Time Cerumen removal without microscope bilat completed VALENTINO REEVES PA-C [address] [place] [address],[place] [address], [place], [address], [facility] - [facility] 07/25/2025 13:52:46 Imaging Results None recorded. Procedure Notes None recorded. Medical Equipment None Reported. Allergies Allergen ID Allergen Name Allergen Category Reaction Reaction Severity Criticality Documentation Date Start Date Code Code System Note Provider Name and Address Organization Details Recorded Time 858691 Substance with sulfonami de structure and antibacte rial mechanism of action (substanc e) medicatio n other Not available Not available 03/07/2024 89276 5277 SNOMED React ion: unkno wn, unspe cifie d;; Not Available [facility] 4 01:15:15 Medications Name Sig Start [...] eye drops 2018 active Medicati on ID: [id number] P rescribe d By Name: Darin mcmillan [...] mg tablet 2018 active Medicati on ID: 776533 D uration Value: 90 Brand Name: metformi [...] mg tablet 2018 active Medicati on ID: [id number] D uration Value: 90 Brand Name: lisinopr [...] mg capsule 2018 active Medicati on ID: [id number] B rand Name: Zyrtec S end Method: [...] ICD10 Code Diagnosis IMO Codes Diagnosis Note [id number] VALENTINO REEVES PA-C [facility] [address] [place] [address] 07/25/2025 12:48:19 07/25/2025 13:49:48 Bilateral tympanic membrane central perforation 9658131458 065271 H72.03 Mixed cond uctive and sensorineural hearing loss, bilateral 445155102 H90.6 Impacted c erumen of bilateral ears 6726467393 729953 H61.23 Health Concerns Section Related Observation LastModified by Organization Detai ls LastModified Time None Recorded Concern Status LastModified by Organization Details LastModified Time None Recorded Payers Encounter Date Sequence Insurance Name Policy Number Policy Harding Covered Member ID Harding Member ID Guarantor Name 07/25/2025 1 [facility] - MEDICARE PREFERRED (MEDICARE REPLACEMENT PPO) [employer] Gamal Dominguez [id number] Gamal Dominguez Notes Date Note Type Note Provider Name and Address Organization Details Recorded Time 07/25/2025 text/html ROS as noted in the HPI 79-year-old male with history of bilateral TM perforations status post tube extrusion presentswith BILLING MANAGER for cerumen removal. No acute concerns today. [facility] and are working well. [facility]. No prior ear surgery. VALENTINO REEVES PA-C [address] [place] [address],[address] [address], [place], [address], [facility] - [facility] 07/25/2025 13:56:39
--- OUTSIDE RECORDS SUMMARY | 2025-09-12 22:36 | XMS_ITS | Encounter Summary ---
Author Organization [facility] Address [address] [place] [address] [place] [address] Phone Care Team Providers Care Suction Worker Name Role Phone Sal Everett MD Primary Care Provider [phone] Jair Poe MD Unavailable [phone] Prakash Bower MD Primary Care Provider [phone] Kamari Carter MD Unavailable [phone] Ondina Ferreira MD Primary Care Provider [phone] Encounter Details Date Type Department Care Team (Latest Contact Info) Description 04/10/2019 Transcribe Orders [facility] [place] [address] [place] [facility] [place] [address] Slava Ruiz MD [address] [facility], [address] [place], [place] [id number] [email or web address] Bronchiectasis, uncomplicated (Primary Dx) Social History [...] 1:15 PM EST Telemedicine - audio only [facility] [address] [facility] 3rd Floor, [address] [place] [address] Slava Ruiz MD [address] [facility], [address] [place] [address] [email or web address] documented as of this encounter Results * Anti-Neutrophil Cytoplasmic Antibody (ANCA) (04/10/2019 8:49 AM EDT) C-ANCA Negative Negative [facility] P-ANCA Negative Negative [facility] Comment: (NOTE) Negative for cANCA and pANCA patterns by immunofluorescence. ADDITIONAL INFORMATION This test was developed and its performance characteristics determined by [facility] in a manner consistent with CLIA requirements. This test has not been cleared or approved by the U.S. Food and Drug Administration. Blood 04/10/2019 8:49 AM EDT 04/10/2019 8:58 AM EDT us Slava Ruiz MD LAB BLOOD BKR ORDERABLES Final Result [facility] [address] [place] [address] * Immunoglobulin M (04/10/2019 8:49 AM EDT) IMMUNOGLOBULIN M 57 40 - 230 mg/dL [facility] Blood 04/10/2019 8:49 AM EDT 04/10/2019 8:57 AM EDT us Slava Ruiz MD LAB BLOOD BKR ORDERABLES Final Result [address] [address] * Immunoglobulin E, total (04/10/2019 8:49 AM EDT) IGE 47.2 <=214 kU/L [facility] Blood 04/10/2019 8:49 AM EDT 04/10/2019 8:58 AM EDT Slava Ruiz MD LAB BLOOD BKR ORDERABLES Final Result Performing Organization Address [facility] Co de Phone Number [facility] [place] [address] [place] [address] * Immunoglobulin A (04/10/2019 8:49 AM EDT) IgA 292 70 - 400 mg/dL [facility] Blood 04/10/2019 8:49 AM EDT 04/10/2019 8:57 AM EDT Slava Ruiz MD LAB BLOOD BKR ORDERABLES Final Result Performing Organization Address [facility] de Phone Number [address] [address] * (ABNORMAL) IgG subclasses (04/10/2019 8:49 AM EDT) IGG 1 805 341 - 894 mg/dL [facility] [address] IGG 2 244 171 - 632 mg/dl [facility] [address] IGG 3 172.0(H) 18.4 - 106.0 mg/dl [facility] [address] IGG 4 20.0 2.4 - 121.0 mg/dl [facility] [place] [address] TOTAL IGG 1,290 767 - 1,590 mg/dl [facility] Blood 04/10/2019 8:49 AM EDT 04/10/2019 8:58 AM EDT us Slava Ruiz MD LAB BLOOD ORDERABLES Final Res ult [facility] [address] [place] [address] * Rheumatoid factor (04/10/2019 8:49 AM EDT) RHEUMATOID FACTOR <10.0 0.0 - 14.0 IU/ml [facility] Blood 04/10/2019 8:49 AM EDT 04/10/2019 8:57 AM EDT Slava Ruiz MD LAB BLOOD BKR ORDERABLES Final Result Performing Organization Address [facility] Co de Phone Number [address] [address] * (ABNORMAL) Antinuclear antibody (STEFFI) (04/10/2019 8:49 AM EDT) STEFFI SCREEN ON HEP 2 Positive(A ) Negative [facility] Comment:An STEFFI Titer has bee n reflexed. The results will follow. Blood 04/10/2019 8:49 AM EDT 04/10/2019 8:57 AM EDT Slava Ruiz MD LAB BLOOD BKR ORDERABLES Final Result Performing Organization Address [facility] Co de Phone Number [address] [address] documented in this encounter Visit Diagnoses Diagnosis Bronchiectasis, uncomplicated- Primary documented in this encounter Additional Health Concerns Assessment Noted Time PHQ-2 Depression Total Score: 0 01/05/20 19 8:46 AM EDT documented as of this encounter Care Teams Suction Worker Relationship Specialty Start Date End Date Sal Everett MD [email or web address] PCP - General Internal Medicine 08/02/1811/25 Prakash Bower MD [address] [place] [address] [email or web address] PCP - General Internal Medicine 11/26/20 08/31/23 Ondina Ferreira MD [address] [place] [address] PCP - General 10/06/23 Jair Poe MD [address] [place] [address] [address] [place] [address] [facility] 09/28/18 Kamari Carter MD [address] [place] [address] Ophthalmology 01/13/22 documented as of this encounter Additional Source Comments The information contained in this document represents components of the legal health record. It is not the complete legal health record.[facility]
--- OUTSIDE RECORDS SUMMARY | 2025-09-12 22:36 | XMS_ITS | Patient Health Record ---
Author Organization [facility] Address [address] [facility] [place] [address] Care Team Providers Care Kennel Keeper Name Role Phone Ondina Ferreira Primary Care Provider Jerome Morfin Unavailable [phone] Allergies Allergen (clinical drug ingredient) Drug/Non Drug [...] Problem Acquired hammer toe of right foot (9891532605716999 ) Other hammer toe(s) (acquired), right foot (M20.41) Active confirmed Problem Acquired hammer toe of left foot (8903733942578918 ) Other hammer toe(s) (acquired), left foot (M20.42) Active confirmed Problem Polyneuropathy due to type 2 diabetes mellitus (054266598) Type 2 diabetes mellitus with diabetic polyneuropathy (E11.42) Active confirmed Vital Signs Blood pressure diastolic 65 mm Hg 05/15/2025 Height 5 ft 7 in in 05/15/2025 Blood pressure systolic 128 mm Hg 05/15/2025 Weight 165 lbs 05/15/2025 BMI 25.84 kg/m2 05/15/2025 Procedures Procedure Date Ordered Date Performed Result Body Sit e 50552-IOTHPRK NAIL, 6 OR MORE 01/16/2025 N/A 52040-MMQH SKIN LESIONS, OVER 4 01/16/2025 N/A 41439-XIEGRTU NAIL, 6 OR MORE 05/15/2025 N/A 67514-SRLT SKIN LESIONS, OVER 4 05/15/2025 N/A Encounters Encounter Location Date Provider Diagnosis [facility] [address] [address] 01/16/2025 Jerome Nava Type 2 diabetes mellitus with diabetic polyneuropathy E11.42 ; Tinea unguium B35.1 ; Other hammer toe(s) (acquired), right foot M20.41 and Other hammer toe(s) (acquired), left foot M20.42 [facility] [address] [address] 05/15/2025 Jerome Nava Type 2 diabetes mellitus with diabetic polyneuropathy E11.42 and Tinea unguium B35.1 [facility] [place] [address] [place] [address] 10/10/2024 Jerome Nava Assessments Encounter Date Diagnosis (ICD Code) Assessment Notes Treatment Notes Treatment Clinical Notes Section Notes 01/16/2025 Type 2 diabetes mellitus with diabetic [...] Treatment Pending Test Test Name Order Date 63895-LRNTDYZ NAIL, 6 OR MORE 04/30/2015 83117-SBGJMGL NAIL, 6 OR MORE 07/30/2015 48828-IKYXPCR NAIL, 6 OR MORE 11/08/2015 61339-GTNWXPS NAIL, 6 OR MORE 02/25/2016 93494-JRDAHEI NAIL, 6 OR MORE 06/19/2016 63480-SPCGVQU NAIL, 6 OR MORE 09/22/2016 94364-OGSLEDC NAIL, 6 OR MORE 12/22/2016 07180-UWAQMGB NAIL, 6 OR MORE 04/06/2017 43093-UHEEKDR NAIL, 6 OR MORE 07/23/2017 63291-MNUJOZN NAIL, 6 OR MORE 10/29/2017 56757-BMCDKHR NAIL, 6 OR MORE 04/22/2018 34534-VQCHBPL NAIL, 6 OR MORE 07/29/2018 30315-IYHTRFO NAIL, 6 OR MORE 11/11/2018 96912-NVKREMG NAIL, 6 OR MORE 03/17/2019 70552-EXLQSON NAIL, 6 OR MORE 07/18/2019 03867-ZNRQUKU NAIL, 6 OR MORE 11/21/2019 82251-MZEIAWX NAIL, 6 OR MORE 04/23/2020 25544-EWTQYLR NAIL, 6 OR MORE 10/29/2020 96718-AOLORWH NAIL, 6 OR MORE 02/25/2021 65986-UJWHAVG NAIL, 6 OR MORE 08/29/2021 67004-BURVGQZ NAIL, 6 OR MORE 01/30/2022 93823-LOAGRZD NAIL, 6 OR MORE 07/07/2022 62441-HUSRLXS NAIL, 6 OR MORE 12/08/2022 17082-OASDAQS NAIL, 6 OR MORE 05/07/2023 83735-NHYPZOV NAIL, 6 OR MORE 12/21/2023 42369-TYIFIZQ NAIL, 6 OR MORE 06/20/2024 08829-YYEQHFV NAIL, 6 OR MORE 01/16/2025 35132-GGWKEWN NAIL, 6 OR MORE 05/15/2025 63115-Uhpr Destruction, 1-14 07/07/2022 56496-Mqdn Destruction, 1-14 05/07/2023 68421-Kbmi Destruction, 1-14 12/08/2022 42064-Fzen Destruction, 1-14 01/30/2022 95630-Gikc Destruction, 1-14 08/29/2021 74997-Divg Destruction, 1-14 11/08/2015 39133-Dvuo Destruction, 1-14 07/30/2015 20341-Iqec Destruction, 1-14 04/30/2015 47183 I&D ABSCESS- SIMPLE,SINGLE 016 36626 I&D ABSCESS- SIMPLE,SINGLE 020 04600-JKRS SKIN LESIONS, OVER 4 11/21/19 20 24365-XHYI SKIN LESIONS, OVER 4 07/18/20 19 19453-LTGC SKIN LESIONS, OVER 4 03/17/20 19 49399-OJKO SKIN LESIONS, OVER 4 11/11/19 19 28224-FJZD SKIN LESIONS, OVER 4 07/29/20 18 10082-VFFH SKIN LESIONS, OVER 4 04/22/20 18 72742-UZJP SKIN LESIONS, OVER 4 10/29/19 18 31024-RUTI SKIN LESIONS, OVER 4 07/23/20 17 79852-HRFC SKIN LESIONS, OVER 4 11/08/19 16 55843-WJOI SKIN LESIONS, OVER 4 04/30/20 15 81886-KHKE SKIN LESIONS, OVER 4 07/30/20 15 73123-IXHV SKIN LESIONS, OVER 4 12/22/19 17 85432-GSRC SKIN LESIONS, OVER 4 04/06/20 17 68914-KNQQ SKIN LESIONS, OVER 4 09/22/20 16 22205-SVOK SKIN LESIONS, OVER 4 06/19/20 16 92125-NJUJ SKIN LESIONS, OVER 4 02/25/20 16 19712-OIJC SKIN LESIONS, OVER 4 08/29/20 21 49762-FUHT SKIN LESIONS, OVER 4 02/26/20 21 00723-FSTV SKIN LESIONS, OVER 4 10/29/19 33091-VKWJ SKIN LESIONS, OVER 4 04/23/20 20 57217-VQMY SKIN LESIONS, OVER 4 01/31/20 22 02159-CXFO SKIN LESIONS, OVER 4 07/07/20 22 31425-NRUB SKIN LESIONS, OVER 4 12/08/19 23 98361-RUCM SKIN LESIONS, OVER 4 05/07/20 23 37690-RFDE SKIN LESIONS, OVER 4 05/15/20 25 83861-KIDL SKIN LESIONS, OVER 4 01/17/20 25 65791-HNDB SKIN LESIONS, OVER 4 06/20/20 24 24517-VPSB SKIN LESIONS, OVER 4 12/21/19 24 Next Appt Details Provider Name:Jerome Nava , 09/14/2025 10:30:00 AM, [address] [place], [address], Insurance Providers Payer Name Payer Address Payer Phone Subscriber Number Group Number Insured Name Patient Relationship to Insured Coverage Start Date Coverage End Date [employer] Medicare Preferred [address] [place] [address] [phone] [id number] Gamal Dominguez Self - patient is the insured Medical (General) History Medical History History ICD Code Chicken pox Mumps Measles Cholesterol Reflux type II diabetes Surgical History Surgery Date(Month/Year) angioplasty 10/1994 stent 10/1999 cataract-lens implants, left eye 016 Heart stent 06/2017
--- OUTSIDE RECORDS SUMMARY | 2025-09-12 22:36 | XMS_ITS ---
Author Organization [facility] Care Team Providers Care Junior Graphic Designer Name Role Phone Marie Orellana Unavailable Unavailable Byron Stephenson Unavailable Unavailable Yonny Waller Unavailable Unavailable Lobito Ledezma Unavailable Unavailable Carly Phillips Unavailable Unavailable Pablo Montanez Unavailable Unavailable Allergies and adverse reactions Code CodeSystem Substance Reaction Severity StartDate Concern Status Augmentin Severe 05/30/2023 active Egg Unknown 05/27/[address] Sulfa Antibiotics Unknown 05/27/2023 active Care Team Name Role Address Phone Organization Dates Pablo Montanez PCP [address] [facility] [address], [place], [address], [place] (Office[facility] : [facility] 05/27/2023 - 06/08/2023 Marie Orellana [facility] [place] [facility] [address] [place] [address], [place], [address], [place] (Office): [facility] 05/27/2023 - 06/08/2023 Byron Stephenson [address] [place], [address], [place] (Office[facility] : [facility] 05/27/2023 - 06/08/2023 Yonny Waller [address] [facility] [facility] [address], [place], [address], [place] (Office): : : [facility] 05/27/2023 - 06/08/2023 Lobito Ledezma [address] [place], [address], [place] (Office): [facility] 05/27/2023 - 06/08/2023 Carly Phillips [address] [facility] [address], [place], [address], [facility] (Office): : [facility] 05/27/2023 - 06/08/2023 Immunizations Immunization Status Vaccine Details Vaccine Code CodeSystem Date Notes Pneumovax Dose 1 completed pneumococcal polysaccharide vaccine, 23 valent 33 CVX created date: 3 administe red date: 1 TB 2 Step Mantoux Skin Test completed tuberculin skin test; unspecified formulation Given 0.1 ml Right Forearm subcutaneously Step 2 of Multi-step with next step required 98 CVX created date: 3 consent date: 3 administe red date: 4 TB 2 Step Mantoux Skin Test completed tuberculin skin test; unspecified formulation lotNumber: [id number] expiry: 03/24/2024 Mfg: Alpisiol Given 0.1 ml Right Forearm intradermally Step 1 of Multi-step 98 CVX created date: 3 consent date: 3 administe red date: 3 Influenza (high dose) cancelled Influenza, high-dose, split virus, trivalent, injectable, preservative free 135 CVX created date: 3 consent date: 3 mother had reaction he was told by PCP not to accept flu vaccination COVID-19 Vaccine Dose 1 completed unknown vaccine or immune globulin 999 CVX created date: 3 administe red date: 1 COVID-19 Vaccine Dose 2 completed unknown vaccine or immune globulin 999 CVX created date: 3 administe red date: 1 PCV20 completed Pneumococcal conjugate vaccine 20-valent (PCV20), polysaccharide [id number] conjugate, adjuvant, preservative free lotNumber: [id number] expiry: 08/24/2023 Mfg: Gini.net Given 0.5 ml Left Deltoid intramuscularly 216 CVX created date: 3 consent date: 3 administe red date: 3 Educated by nurse on 06/08/2023 Mental Status Section Date Assessment Total Score Description 06/08/2023 BIMS 11 moderate cognit russ impairment CAM 0 No delirium ind icated PHQ-9 05 mild depression 06/02/2023 BIMS 10 moderate cognit russ impairment CAM 0 No delirium ind icated PHQ-9 05 mild depression Insurance Providers Problems Problem # Description Date of onset Resolved Date Code CodeSystem Concern Status 1 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, BILATERAL LEGS 05/27/[id number] active 2 ATHEROSCLEROTIC HEART DISEASE OF THREE AFFILIATED CORONARY ARTERY WITHOUT ANGINA PECTORIS 05/27/[address] active 3 BILATERAL PRIMARY OSTEOARTHRITIS OF HIP 05/27/[address] active 4 CHRONIC OBSTRUCTIVE PULMONARY DISEASE, UNSPECIFIED 05/27/[address] active 5 ESSENTIAL (PRIMARY) HYPERTENSION 05/27/[address] active 6 OTHER ABNORMALITIES OF GAIT AND MOBILITY 05/27/[address] active 7 OTHER SPECIFIC JOINT DERANGEMENTS OF RIGHT HIP, NOT ELSEWHERE CLASSIFIED 05/27/[address] active 8 PELVIC AND PERINEAL PAIN 05/27/[address] active 9 TYPE 2 DIABETES MELLITUS WITHOUT COMPLICATIONS 05/27/[address] active 10 UNSTEADINESS ON FEET 05/27/[address] active Reason for Referral No Reasons for Referral Entered Social History Social History Observation Description Start Date End Date Code Code System Current Smoking Status Tobacco smoking consumption unknown 129467637 SNOMED CT Sex Assigned At Male 1945 58027-4 [facility] Gender Identity Sexual Orientation Vital Signs Code Code System Vitals Name Values and Units Timing Information 9279-1 [facility] Respiratory Rate Value=16.0 Units=/m in 06/08/2023 03454-1 [facility] Pain Level Value=0.0 06/08/2023 8867-4 [facility] Heart rate Value=78.0 Units=/min 98023-7 [facility] O2 % dC Oximetry Value=94.0 Units= % 06/08/2023 8462-4 [facility] Blood Pressure-Diastolic Value=66 Un its=mmHg 06/07/2023 8480-6 [facility] Blood Pressure-Systolic Spydh=157 Un its=mmHg 06/07/2023 8310-5 [facility] Body Temperature Value=98.0 Units= F 06/07/2023 8302-2 LO[facility] Height Value=67.0 Units=Inches 05/27/2023 48866-8 [facility] Weight Rzhpk=440.6 Units=Lbs 12/2022
--- OUTSIDE RECORDS SUMMARY | 2025-09-12 22:36 | XMS_ITS | Encounter Summary ---
Author Organization [facility] Address [address] [place] [address] [address] [place] [address] Phone Care Team Providers Care Load Blocker Name Role Phone Jair Poe MD Unavailable [phone] Prakash Bower MD Primary Care Provider [phone] Kamari Carter MD Unavailable Ondina Ferreira MD Primary Care Provider [phone] Encounter Details Date Type Department Care Team (Late st Contact Info) Description 08/27/2022 Procedure Pass Echo [facility] [address] [place] [address] Social History Tobacco Use Types [...] Description 11/22/2025 1:15 PM EST Telemedicine - [facility] [address] [facility] 3rd Floor, [address] [place] [address] Slava Ruiz MD [address], [address] [place] [address] [email or web address] documented as of this encounter Visit Diagnoses Not on filedocumented in this encounter Additional Health Concerns Assessment Noted Time PHQ-2 Depression Total Score: 0 01/13/20 22 8:13 AM EDT documented as of this encounter Care Teams Load Blocker Relationship Specialty Start Date End Date Prakash Bower MD [address] [place] [address] [email or web address] PCP - General Internal Medicine 11/26/20 08/31/23 Ondina Ferreira MD [address] [place] [address] PCP - General 10/06/23 Jair Poe MD [address] [place] [address] Drive [address] [place] [address] Research Spec Cardiology 09/28/18 Kamari Carter MD [address] [place] [address] Ophthalmology 01/13/22 documented as of this encounter Additional Source Comments The information contained in this document represents components of the legal health record. It is not the complete legal health record.[facility]
--- OUTSIDE RECORDS SUMMARY | 2025-09-12 22:36 | XMS_ITS | Encounter Summary ---
Author Organization [facility] Address [address] [place] [address] Phone Care Team Providers Care Athletic Scout Name Role Phone Sal Everett MD Primary Care Provider [phone] Jair Poe MD Unavailable [phone] Prakash Bower MD Primary Care Provider [phone] Kamari Carter MD Unavailable [phone] Ondina Ferreira MD Primary Care Provider [phone] Reason for Referral * MRI/CAT Scan - Closed Specialty Diagnoses / Procedures Referred By Mary Jo mercedes Referred To Contact Radiology Diagnoses Bronchiectasis without complication Procedures CT Chest Slava Ruiz MD Phone: tel: fax: [email or web address] Referral ID Status Reason Start Date Expiration Date Visits Re quested Visits Authorized [id number] Closed 03/07/2019 03/06/2020 1 1 Encounter Details Date Type Department Care Team (Latest Contact Info) Description 03/07/2019 Transcribe Orders Virtual Department [address] [place] [address] Slava Ruiz MD [address] [facility], [address] [place] [address] [email or web address] Bronchiectasis without complication (Primary Dx) [...] 1:15 PM EST Telemedicine - audio only [facility] [address] [facility] 3rd Floor, [address] [place] [address] Slava Ruiz MD [address] [facility], [address] [place] [address] [email or web address] documented as of this encounter [...] disease. TOTAL CTDIvol: 9.70 mGy POS - [id number] Edited by: Miracle Ordoñez on 04/03/2019 10:40 [...] disease. TOTAL CTDIvol: 9.70 mGy POS - [id number] Edited by: Miracle Ordoñez on 04/03/2019 10:40 AM Slava Ruiz MD IMG CT CHEST Final Result documented in this encounter Visit Diagnoses Diagnosis Bronchiectasis without complication- Primary Bronchiectasis without complication documented in this encounter Additional Health Concerns Assessment Noted Time PHQ-2 Depression Total Score: 0 01/05/20 19 8:46 AM EDT documented as of this encounter Care Teams Athletic Scout Relationship Specialty Start Date End Date Sal Everett MD [email or web address] PCP - General Internal Medicine 08/02/1811/25 Prakash Bower MD [address] [place] [address] [email or web address] PCP - General Internal Medicine 11/26/20 08/31/23 Ondina Ferreira MD [address] [place] [address] PCP - General 10/06/23 Jair Poe MD [address] [place] [address] [place] [address] [facility] 09/28/18 Kamari Carter MD [address] [place] [address] Ophthalmology 01/13/22 documented as of this encounter Additional Source Comments The information contained in this document represents components of the legal health record. It is not the complete legal health record.[facility]
--- OUTSIDE RECORDS SUMMARY | 2025-09-12 22:37 | XMS_ITS | Encounter Summary ---
Author Organization [facility] Address [address] [place] [address] [address] [place] [address] Phone Care Team Providers Care Office Worker Name Role Phone Jair Poe MD Unavailable [phone] Prakash Bower MD Primary Care Provider [phone] Kamari Carter MD Unavailable [phone] Ondina Ferreira MD Primary Care Provider [phone] Encounter Details Date Type Department Care Team (Late st Contact Info) Description 08/27/2022 Procedure Pass [facility], Ct Scan - [address] [id number] Social History Tobacco Use Types Packs/Day Years [...] 1:15 PM EST Telemedicine - audio only [facility] [address] [place] [address] 3rd Floor, [address] [place] [address] Slava Ruiz MD [address] [facility], [address] [place] [address] [email or web address] documented as of this encounter Visit Diagnoses Not on filedocumented in this encounter Additional Health Concerns Assessment Noted Time PHQ-2 Depression Total Score: 0 01/13/20 22 8:13 AM EDT documented as of this encounter Care Teams Office Worker Relationship Specialty Start Date End Date Prakash Bower MD [address] [place] [address] PCP - General Internal Medicine 11/26/20 08/31/23 Ondina Ferreira MD [address] [place] [address] PCP - General 10/06/23 Jair Poe MD [address] [place] [address] [address] [place] [address] [facility]ctor Cardiology 09/28/18 Kamari Carter MD [address] [place] [address] Ophthalmology 01/13/22 documented as of this encounter Additional Source Comments The information contained in this document represents components of the legal health record. It is not the complete legal health record.[facility]
--- OUTSIDE RECORDS SUMMARY | 2025-09-12 22:38 | XMS_ITS | Clinical Summary ---
Author Organization [facility] Address [address] [place] [id number] Phone Care Team Providers Care Documentation Coordinator Name Role Phone Jair Poe MD Unavailable [phone] Kamari Carter MD Unavailable [phone] Ondina Ferreira MD Primary Care Provider [phone] Allergies Active Allergy Reactions Criticality Noted Date [...] topically 2 (two) times a day. 2 11/09/19 19 Active triamcinolone acetonide 0.1 % creamIndications :Pruritic rash Apply topically every morning for 14 days. Apply to rashes daily 14 days. 45 g 04/10/20 21 Active Additional Information Patient not taking.Reported on 05/24/2024 cetirizine (ZYRTEC) 10 mg capsule Active nitroglycerin (NITRODUR) 0.1 mg/hr once as needed. Acti ve aspirin 81 MG EC tablet Take 81 mg by mouth daily. Active ONETOUCH DELICA LANCETS 33 gauge Misc Inject 1 Test into the skin 2 (two) times a day. In vitro 100 each 11 09/11/20 22 Active Additional Information Patient not taking.Reported on 08/22/2025 mucus clearing device Usha 1 Act by Miscellaneous route 2 (two) times a day. 1 each 1 10/08/20 22 Active Additional Information Patient not taking.Reported on 08/22/2025 metFORMIN (GLUCOPHAGE) 500 MG tabletIndication s:Diabetes mellitus TAKE 2 TABLETS BY MOUTH EVERY DAY WITH BREAKFAST 180 tablet 3 12/10/19 23 Active Additional Information Patient taking differently: 500 mg Oral 2 times daily with meals, Reported on 08/22/2025 atorvastatin (LIPITOR) 80 MG tabletIndication s:Medication refill,Atheroscl erosis of coronary artery TAKE 1 TABLET BY MOUTH EVERYDAY AT BEDTIME 90 tablet 3 12/21/19 23 Active ONETOUCH ULTRA TEST Strp stripsIndication s:Diabetes mellitus INJECT 1 EACH UNDER THE SKIN 2 (TWO) TIMES A DAY. 100 strip 3 04/28/20 23 Active Additional Information Patient not taking.Reported on 08/22/2025 wound dressings (TRIAD) Pste paste Apply 1 Application topically as needed. Desitin Active metoprolol succinate (TOPROL-XL) 50 MG 24 hr tabletIndication s:Medication refill,Benign essential hypertension take 1 tablet by mouth every day 90 tablet 3 11/22/19 24 Active Additional Information Patient not taking.Reported on 08/22/2025 clotrimazole-bet amethasone (LOTRISONE) cream APPLY ONCE DAILY TO FEET 01/17/20 24 Active amoxicillin-clav ulanate (AUGMENTIN) 875-125 mg per tablet Take 1 tablet by mouth 2 (two) times a day. 03/27/20 24 Active azithromycin (ZITHROMAX) 250 MG tablet TAKE 2 TABLETS BY MOUTH TODAY, THEN TAKE 1 TABLET DAILY FOR 4 DAYS DIRECTED 03/28/20 24 Active fluticasone-umec lidin-vilanter (TRELEGY ELLIPTA) 100-62.5-25 mcg inhalation powder Inhale into the lungs. 07/29/20 23 Active guaiFENesin (MUCINEX) 600 mg ER biphasic tablet Take 1,200 mg by mouth. 10/05/20 23 Active azithromycin (ZITHROMAX) 500 MG tablet Take 1 tablet (500 mg total) by mouth 3 (three) times a week on Wednesday, Wednesday, Wednesday. 15 tablet 11/22/19 Active ipratropium-albu teroL (DUONEB) 0.5-3 mg (2.5 mg base)/3 mL nebulizer solution Take 3 mL by nebulization every 6 (six) hours as needed for wheezing. 300 mL 11 11/21/19 Active Additional Information Patient taking differently:3 mL Nebulization Every 6 hours PRN, wheezing,3 times daily, Reported on 08/22/2025 umeclidinium-tommy anteroL (ANORO ELLIPTA) 62.5-25 mcg/actuation diskus inhaler USE 1 INHALATION BY MOUTH ONCE DAILY AT THE SAME TIME EACH DAY 3 each 3 01/17/20 Active risperiDONE (RISPERDAL) 2 MG tablet as needed. 12/22/19 Active albuterol 90 mcg/actuation inhalerIndicatio ns:Medication refill USE 2 INHALATIONS BY MOUTH EVERY 4 HOURS NEEDED 51 g 3 06/19/20 Active ACCU-CHEK GUIDE GLUCOSE METER Misc meter USE DIRECTED TO TEST BLOOD SUGAR TWO TIMES A DAY. E11.9 - REPLACES ONETOUCH 06/15/20 Active donepeziL (ARICEPT) 5 MG tablet take 1 tablet by mouth everyday at bedtime 08/16/20 Active Active Problems Problem Noted Date Diagnosed Date [...] Routine general medical exam ination at a [facility] care facility 02/15/2023 Assessment & Plan (02/15/2023 [...] now he has been told by Dr. Whalye to stop the iron and we endorsed that recommendation as well. Allergic reaction to severe acute respiratory syndrome coronavirus 2 (SARS-CoV-2) vaccine 01/15/2021 Assessment & Plan (01/15/2021 1:20 PM EDT): This is clearly an allergic reaction to the COVID-19 vaccine mRNA type either KnockaTV or ProQuo. 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 if he wishes we can see him [...] & Plan (08/12/2021 5:15 PM EDT): I [id number] type 2 diabetes treated with Metformin changed [...] the present time Anemia 09/28/2018 Atherosclerosis of [place] co ronary artery of [place] heart with stable angina pectoris 09/28/2018 Assessment [...] Encounters Date Type Department Care Team Description 08/22/2025 11:15 AM EDT Office Visit [facility] [address], [address] [place] [address] Slava Ruiz MD Bronchiectasis without complication (Primary Dx); Chronic obstructive pulmonary disease, unspecified COPD type 06/17/2025 Refill [facility] [address], [address] [place] [address] Slava Ruiz MD Medication Refill from Last 3 Months Immunizations Immunization Administration [...] Sign Reading Time Taken Comments Blood Pressure 110/60 08/22/2025 11:02 AM EDT Pulse 73 08/22/2025 11:02 AM EDT Temperature 37 C (98.6 F) 07/07/2023 2:37 PM EDT Respiratory Rate 22 08/17/2022 10:25 AM EDT Oxygen Saturation 93% 08/22/2025 11:02 AM EDT Inhaled Oxygen Concentration - - Weight 64.4 kg (142 lb) 02/02/2024 11:06 AM EDT Height 166.4 cm (5' 5.51 ) 08/22/2025 11:02 AM E DT Body Mass Index 23.26 02/02/2024 11:06 AM EDT Plan of Treatment Upcoming Encounters Date Type Department Care Team (Latest Contact Info) Description 11/22/2025 1:15 PM EST Telemedicine - audio only [facility] [address] [place] [address] [address], [address] [place] [address] Slava Ruiz MD [address] [facility], [address] [place] [phone] [email or web address] Health Maintenance Due Date Last Done Comments ZOSTER VACCINES (1 of 2) 1995 RSV VACCINE (1 - 1-dose 75+ series) 2020 DIABETIC EYE EXAM 10/08/2021 10/08/2020, 10/03/2019 DEPRESSION SCREENING 02/09/2024 02/08/2023 CREATININE LEVEL 06/29/2024 06/29/2023, , 02/08/2023, Additional history exists COVID-19 VACCINE (2024- season) 2025 12/25/2020, 12/04/2020 HEMOGLOBIN A1C 11/25/2025 05/25/2025, 1010/2023, 06/26/2023, Additional history exists URINE MICROALBUMIN/CREATININE RATIO 02/09/2026 02/09/2025, 07/20/2022, 04/11/2021 BLOOD PRESSURE 02/20/2026 08/22/2025 Adult Td,Tdap Booster 01/06/2032 01/05/2022, 003 PNEUMOCOCCAL VACCINES (50+ years) Completed 06/08/2023, 02/20/2011 SMOKING STATUS SCREENING (Once After 26 Yrs) Completed 08/22/2025 HEPATITIS A VACCINES Aged Out No long [...] - External 0.9 0.8 - 1.3 mg/dL Historical Provider LAB BLOOD ORDERABLES Kaur l Result * Outside HbA1c (06/26/2023) Hemoglobin A1c - External 6.4 % Historical Provider LAB BLOOD ORDERABLES Kaur l Result * (ABNORMAL) Microalbumin/creatinine ratio, random urine (07/20/2022 9:09 AM EDT) URINE MICROALBUMIN 4.7(H) 0 - 2.3 mg/dL [facility] URINE CREATININE 147 mg/dL [facility] [facility] MICROALB/CRE RATIO 32.0(H) 0 - 20 mg/g Cre [facility] Urine (Urine) 07/20/2022 9:0 9 AM EDT 07/20/2022 9:16 AM EDT Prakash Bower MD LAB URINE ORDERABLES Final Resul t [facility] [address] [place] [address] * DIABETES EYE EXAM FOR RESULT ENTRY ONLY (10/08/2020) EYE EXAM no retinopathy Historical Provider HEALTH MAINTENANCE Final Result from [...] [employer] REPLACEMENT Care Teams Documentation Coordinator Relationship Specialty Start Date End Date Ondina Ferreira MD [address] [place] [phone] PCP - General 10/06/23 Jair Poe MD [address] [place] [address] [place] [id number] Exceptional Student Education Aide Cardiology 09/28/18 Kamari Carter MD [address] [place] [address] [place] [phone] Ophthalmology 01/13/22 Additional Source Comments The information contained in this document represents components of the legal health record. It is not the complete legal health record.[facility]
== END 2025-09-12 12:00 | disposition home or self-care (01) ==
LOC: HO.HSM 11:27
PROVIDERS: PCP Internal Medicine; Visit Provider Psychiatry & Neurology Neurology
DX: G20.C Parkinsonism, unspecified (principal); I95.1 Orthostatic hypotension; G31.83 Neurocognitive disorder with Lewy bodies; F02.80 Dementia in other diseases classified elsewhere, unspecified severity, without behavioral disturbance, psychotic disturbance, mood disturbance, and anxiety; G45.9 Transient cerebral ischemic attack, unspecified; R44.3 Hallucinations, unspecified
CPT/HCPCS: 99214

== ENCOUNTER → 2025-09-12 11:27 | Outpatient (BNVA) | payer MEDICARE, SELFPAY | PROVIDERS: PCP Internal Medicine; Visit Provider Psychiatry & Neurology Neurology | DX: G20.C Parkinsonism, unspecified (principal); I95.1 Orthostatic hypotension; G31.83 Neurocognitive disorder with Lewy bodies; F02.80 Dementia in other diseases classified elsewhere, unspecified severity, without behavioral disturbance, psychotic disturbance, mood disturbance, and anxiety; R44.3 Hallucinations, unspecified; Z86.73 Personal history of transient ischemic attack (TIA), and cerebral infarction without residual deficits; Z79.899 Other long term (current) drug therapy | CPT/HCPCS: 99212 ==